=== PATIENT | male | born 1940 | race Two or more races ===

== ENCOUNTER 2017-03-14 00:05 | Inpatient (IN) | payer OTHER ==
--- NOTE | 2017-03-14 00:16 | PDOC ---
History of Present Illness - General Stated Complaint: TOE PAIN S/P APUTATION Time Seen by Provider: 03/14/17 00:15 - History of Present Illness Initial Comments: 03/14/17 00:16 77 yo M with h/o DVT, HTN, ESRD dialysis ( ,) , 3 months s/p Right AKA, s /p left 2nd digit amputation who presents with left second/third digit interspace pain. Grandchildren at bedside to assist in report as patient faroese speaking. Pt. reports new onset burning pain of left 2nd digit amputation site following 15 hour flight from [facility] ( resided for 10 years) in setting of amputation at [facility]. Patient reports increased swelling of left lower extremity. Denies paralysis of extremity, hemoptyisis, SOB, chest pain , fever/chills, N/V. States that there has been no f/u apt. after recent toe amputation. Per grandchildren patient is anticoagulated. Previous arterial study of left exetremity reveals permeable arterial flow throughout extending from femoral to posterior tibial pulse. Patient and pt. family do not recall h/o PE, or cancer. Last dialysis was Tuesday. Past History - Past Medical History Allergies/Adverse Reactions: Allergies Allergy/AdvReac Type Severity Reaction Status Date / Time No Known Allergies Allergy Verified 03/14/17 01:05 Home Medications: Ambulatory Orders Alprazolam [Xanax] 0.25 mg PO HS 03/14/17 Cilostazol [Pletal -] 100 mg PO BID 03/14/17 Esomeprazole Magnesium 40 mg PO DAILY 03/14/17 Fluticasone/Salmeterol [Advair 250-50 Diskus] 1 each IH BID 03/14/17 Glucosamine Sulfate Dipot Chlr [Glucosamine Sulfate] 1,000 mg PO DAILY 03/14/17 Meloxicam [Mobic] 15 mg PO DAILY 03/14/17 Rosuvastatin Calcium [Crestor] 20 mg PO DAILY 03/14/17 Sucralfate [Carafate] 5 ml PO BID 03/14/17 Tramadol HCl [Ultram] 50 mg PO Q4H PRN 03/14/17 Review of Systems - Review of Systems Comments:: 03/14/17 00:16 GENERAL/CONSTITUTIONAL: No fever or chills. No weakness. HEAD, EYES, EARS, NOSE AND THROAT: No change in vision. No ear pain or discharge. No sore throat.- CARDIOVASCULAR: No chest pain or shortness of breath RESPIRATORY: No cough, wheezing, or hemoptysis. GASTROINTESTINAL: No nausea, vomiting, diarrhea or constipation. GENITOURINARY: No dysuria, frequency, or change in urination. MUSCULOSKELETAL: + arthralgias, and left leg swelling, pain, and edema. No neck or back pain. SKIN: No rash NEUROLOGIC: No headache, vertigo, loss of consciousness, or change in strength/ sensation. ENDOCRINE: No increased thirst. No abnormal weight change HEMATOLOGIC/LYMPHATIC: No anemia, easy bleeding, or history of blood clots. ALLERGIC/IMMUNOLOGIC: No hives or skin allergy. *Physical Exam - Physical Exam Comments: 03/14/17 00:16 GENERAL: Awake, alert, and fully oriented, in no acute distress HEAD: No signs of trauma, normocephalic, atraumatic EYES: PERRLA, EOMI, sclera anicteric, conjunctiva clear ENT: Auricles normal inspection, hearing grossly normal, nares patent, oropharynx clear without exudates. Moist mucosa NECK: Normal ROM, supple, no lymphadenopathy, JVD, or masses LUNGS: No distress, speaks full sentences, clear to auscultation bilaterally HEART: Regular rate and rhythm, normal S1 and S2, no murmurs, rubs or gallops, peripheral pulses normal and equal bilaterally. EXTREMITIES :Left leg with 2 + pitting edema, chronic venous stasis dermatitis, 2x2 cm ulcer on left lateral malleolus, gangrenous color change of dorsal third digit, painful palpation of left lower extremity. Palpable popliteal and femoral pulses of left extremity. Amputation site between 2nd /3rd interspace appears yellow/with yellowish discharge and open with sutures remove. Wound site is mal odorous. Normal inspection, Normal range of motion, no edema. No clubbing or cyanosis. Cool to touch. SKIN: Warm, Dry, normal turgor, no rashes or lesions noted. ED Treatment Course - LABORATORY CBC & Chemistry Diagram: 03/14/17 01:15 03/14/17 01:15 Medical Decision Making - Medical Decision Making 03/14/17 01:44 77 yo M with h/o DVT, HTN, ESRD dialysis ( ,) , 3 months s/p Right AKA, s /p left 2nd digit amputation who presents with left second/third digit interspace pain and concern for lower leg ischemia. Endorses new onset burning pain of left 2nd digit amputation site following 15 hour flight from [facility] ( resided for 10 years) in setting of amputation at [facility]. Physical exam reveals cool left lower extremity with non palpable dorsal pedal pulses , 2x2 cm ulcer on left lateral malleolus, gangrenous color change of left dorsal third digit, painful palpation of left lower extremity and 2nd digit amputation with sign of infection between 2nd /3rd interspace w/ yellowish discharge and open wound with sutures removed. Palpable popliteal and femoral pulses of left extremity. Per grandchildren patient is anticoagulated. Previous arterial study of left exetremity reveals permeable arterial flow throughout extending from femoral to posterior tibial pulse. Last dialysis was Tuesday. ED Course: CBC, CMP, UA, Urine Cx, Blood Cx., Cardiac Profile, BNP, EKG, CXR, CTA with BL Runoff Morphine 4 mg, Zofran 4 mg, Vancomycin 1000mg, Unasyn 1.5mg Pt. high risk [place] Criteria Spoke to Dr. Villa vascular surgery. Advised to order CTA with BL LE Runoff. Advised to contact nephrology and arrange for dialysis post IV contrast. 03/14/17 01:48 Spoke to [facility] supervisor because nephrology not confectionery maker for scheduling dialysis for pt. 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 LLE extensive atherosclerosis. Per report from Raidiologist patient has severe occlusion of anterior tibial artery with no flow. Could represent acute or chronic occlusion. 03/14/17 05:04 Heparin infusion protocol 1000/hr. Heparin IV push 5000 mg. 03/14/17 05:48 Per PROFESSIONAL DEVELOPMENT MANAGER Karlene admit to Med/Surg Dr. Robbins *DC/Admit/Observation/Transfer Diagnosis at time of Disposition: Critical ischemia of lower extremity - Discharge Dispostion Condition at time of disposition: Stable Admit: Yes
[2017-03-14] MEDS ORDERED: AMPICILLIN NA/SULBACTAM NA 1.5 GM in SODIUM CHLORIDE 100 ML IVPB ONE (01:19)
[2017-03-14] MEDS ORDERED: ONDANSETRON 4 MG/2 ML VIAL IVPUSH ONE (01:28)
[2017-03-14] MEDS ORDERED: morphine CARPU-JECT 4 MG/1 ML DISP.SYRIN IVPUSH ONE (01:28)
[2017-03-14 01:29] LABS: BASOPHIL 0.8 % (0-2.0); EOSINOPHIL 1.3 % (0-4.5); MCH 28.1 pg (25.7-33.7); MCHC 32.6 g/dl (32.0-35.9); MEAN CELL VOLUME 86.2 fl (80-96); MEAN PLT VOLUME 7.6 fl (7.5-11.1); NEUTROPHILS 82.3 % (42.8-82.8); PLATELET COUNT 79 K/MM3 (134-434); RDW 16.4 % (11.9-15.9); WHITE BLOOD COUNT 5.7 K/mm3 (4.0-10.0)
[2017-03-14] MEDS ORDERED: VANCOMYCIN 1,000 MG in DEXTROSE 5%-WATER - 250 ML IVPB ONE (01:30)
[2017-03-14 01:57] LABS: ANION GAP 9 (8-16); BILIRUBIN,TOTAL 0.6 mg/dL (0.2-1.0); CALCIUM 7.7 mg/dL (8.5-10.1); CO2 24 mmol/L (21-32); GLUCOSE,RANDOM 109 mg/dL (74-106); SGPT/ALT 6 U/L (12-78)
[2017-03-14 01:58] LABS: ALK PHOS 100 U/L (45-117); TOT PROT 4.8 g/dl (6.4-8.2)
[2017-03-14 02:00] LABS: SGOT/AST 3 U/L (15-37)
[2017-03-14 02:01] VITALS: BMI 23.3
--- NOTE | 2017-03-14 02:01 | PDOC ---
Attending Attestation - Resident Resident Name: Anurag Levy - HPI HPI: 03/14/17 01:56 Pt comes with right AKA and a left middle toe amputation that was performed 3 weeks ago in [facility], where pt has been living for the past several years. 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 Pt currently has pseudomonal infection of the left foot with gangrene of 2nd toe and swelling of the entire lower leg, and a posterior tibial ulcer. Unclear if pt has an underlying DVT. He has palpable pulses at the femoral area as well as at the popleteal fossa. We cannot appreciate DP or PT pulses, however, pt comes with documentation from [facility] reflecting that he had patent DP and PT vessels in September of this year. Pt appears weak. He receives dialysis , , ; last dialysis was Tue. Pt has HTN. Pt appears septic, and will likely be admitted for parenteral ABX, as well as eval for DVT and for vessel patency in his lower leg. Pt will require dialysis as well. - Physicial Exam PE: 03/14/17 02:01 Agree with resident note - Medical Decision Making 03/14/17 02:02 Admit patient for antibiotics; vascular surgeon electrician front is aware of the patient and they will see him later today; pt will require inpateint dialysis. Pt will be admitted to the hospitalist service.
[2017-03-14 02:05] LABS: TROPONIN I 0.03 ng/ml (0.00-0.05)
[2017-03-14] MEDS ORDERED: morphine CARPU-JECT 8 MG/1 ML DISP.SYRIN ONE (02:20)
[2017-03-14] MEDS ORDERED: VANCOMYCIN 1 GRAM (PRE-DOCKED) 250 ML IVPB ONE (02:21)
[2017-03-14] MEDS ORDERED: ONDANSETRON 4 MG/2 ML VIAL ONE (02:21)
[2017-03-14 02:22] LABS: INR 1.26 (0.82-1.09); PROTHROMBIN TIME (PATIENT) 14.2 SEC (9.98-11.88)
[2017-03-14] MEDS ORDERED: SODIUM CHLORIDE 500 ML IV STA (02:39)
[2017-03-14] MEDS ORDERED: HEPARIN NA (PORCINE) 5,000 UNITS/ML 1ML VIAL IVPUSH PRN ×4 (04:51→11:04)
[2017-03-14] MEDS ORDERED: HEPARIN - 25,000 UNIT in SODIUM CHLORIDE 495 ML IV SCH ×2 (05:00→05:15)
[2017-03-14] MEDS ORDERED: HEPARIN INFUSION - 500 ML IVPB ONE (05:04)
[2017-03-14] MEDS ORDERED: HEPARIN NA (PORCINE) 5,000 UNITS/ML 1ML VIAL IVPUSH ONE (05:10)
--- NOTE | 2017-03-14 05:14 | HP ---
CHIEF COMPLAINT: L- Toe Pain PCP: Doctor on Staff HISTORY OF PRESENT ILLNESS: This is a 77 y/o man with a significant medical history ESRD HD (,,), HTN , DVT, 3 months s/p Right AKA, s/p left 2nd digit amputation lower extremity. Who presents to the ED with family for left second/third digit interspace pain x 6 weeks worse today. Patient is Nicaraguan speaking, family was not at bedside, ED staff member translated. Patient reports having increased swelling to his left lower extremity. Patient denies fever, chills, cough, hemopytsis, SOB, CP, AP, N/V/D, paralysis of lower extremity. Patient reports no f/u appointment, after recent toe amputation. Per ED record, grandchildren stated patient is anticoagulated. Previous arterial study of left extremity reveals permeable arterial flow throughout extending from femoral to posterior tibial pulse. Patient and pt. family do not recall h/o PE, or cancer. Last dialysis was Tuesday. 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 LLE extensive atherosclerosis. Severe occlusion of anterior tibial artery with no flow. Could represent acute or chronic occlusion. (2) H/H 7.7/23.7 (3) Platelets 79 Recent Travel: from [place] PAST MEDICAL HISTORY: See HPI PAST SURGICAL HISTORY: See HPI Social History: Smoking: Former Cigarette Alcohol: None Drugs: None Lives with family Family History: Non-Contributory Allergies No Known Allergies Allergy (Verified 03/14/17 01:05) HOME MEDICATIONS: Home Medications Medication Instructions Recorded Alprazolam [Xanax] 0.25 mg PO HS 03/14/17 Cilostazol [Pletal -] 100 mg PO BID 03/14/17 Esomeprazole Magnesium 40 mg PO DAILY 03/14/17 Fluticasone/Salmeterol [Advair 1 each IH BID 03/14/17 250-50 Diskus] Glucosamine Sulfate Dipot Chlr 1,000 mg PO DAILY 03/14/17 [Glucosamine Sulfate] Meloxicam [Mobic] 15 mg PO DAILY 03/14/17 Rosuvastatin Calcium [Crestor] 20 mg PO DAILY 03/14/17 Sucralfate [Carafate] 5 ml PO BID 03/14/17 Tramadol HCl [Ultram] 50 mg PO Q4H PRN 03/14/17 REVIEW OF SYSTEMS CONSTITUTIONAL: Absent: fever, chills, diaphoresis, generalized weakness, malaise, loss of appetite, weight change HEENT: Absent: rhinorrhea, nasal congestion, throat pain, throat swelling, difficulty swallowing, mouth swelling, ear pain, eye pain, visual changes CARDIOVASCULAR: peripheral edema Absent: chest pain, syncope, palpitations, irregular heart rate, lightheadedness RESPIRATORY: Absent: cough, shortness of breath, dyspnea with exertion, orthopnea, wheezing, stridor, hemoptysis GASTROINTESTINAL: Absent: abdominal pain, abdominal distension, nausea, vomiting, diarrhea, constipation, melena, hematochezia GENITOURINARY: Absent: dysuria, frequency, urgency, hesitancy, hematuria, flank pain, genital pain MUSCULOSKELETAL: joint swelling, foot pain Absent: myalgia, arthralgia, back pain, neck pain SKIN: wounds to left foot Absent: rash, itching, pallor HEMATOLOGIC/IMMUNOLOGIC: Absent: easy bleeding, easy bruising, lymphadenopathy, frequent infections ENDOCRINE: Absent: unexplained weight gain, unexplained weight loss, heat intolerance, cold intolerance NEUROLOGIC: Absent: headache, focal weakness or paresthesias, dizziness, unsteady gait, seizure, mental status changes, bladder or bowel incontinence PSYCHIATRIC: Absent: anxiety, depression, suicidal or homicidal ideation, hallucinations. PHYSICAL EXAMINATION Vital Signs - 24 hr 03/14/17 01:59 Temperature 99.2 F Pulse Rate 87 Respiratory 20 Rate Blood Pressure 111/76 GENERAL: Awake, alert, and fully oriented, in no acute distress. HEAD: Normal with no signs of trauma. EYES: Pupils equal, round and reactive to light, extraocular movements intact, sclera anicteric, conjunctiva clear. No lid lag. EARS, NOSE, THROAT: Ears normal, nares patent, oropharynx clear without exudates. Moist mucous membranes. NECK: Normal range of motion, supple without lymphadenopathy, JVD, or masses. LUNGS: Breath sounds equal, clear to auscultation bilaterally. No wheezes, and no crackles. No accessory muscle use. HEART: Regular rate and rhythm, normal S1 and S2, No rub or gallop. Systolic 2/ 6 murmur ABDOMEN: Soft, nontender, not distended, normoactive bowel sounds, no guarding, no rebound, no masses. No hepatomegaly or splenomegaly. MUSCULOSKELETAL: Normal range of motion at all joints. No bony deformities or tenderness. No CVA tenderness. UPPER EXTREMITIES: 2+ pulses, warm, well-perfused. No cyanosis. No clubbing. No peripheral edema. AV fistula RUE, thrill/bruit present. AV fistula LUE not working LOWER EXTREMITIES: Palpable popliteal and femoral pulses of left extremity, no palpable pulses to dorsal/achilles, +2 LLE pitting peripheral edema. Right AKA NEUROLOGICAL: Cranial nerves II-XII intact. Normal speech. Gait not observed. PSYCHIATRIC: Cooperative. Good eye contact. Appropriate mood and affect. SKIN: Warm, dry, normal turgor, no rashes. normal capillary refill. +Stage 2 ulcer to buttocks, 2x2 cm ulcer on left lateral malleolus, gangrenous color change of dorsal third digit. Amputation site between 2nd /3rd interspace appears yellow/with yellowish discharge and open with sutures remove. Wound site is malodorous Laboratory Results - last 24 hr 03/14/17 03/14/17 03/14/17 01:15 01:15 01:15 WBC 5.7 RBC 2.74 L Hgb 7.7 L Hct 23.7 L MCV 86.2 MCH 28.1 MCHC 32.6 RDW 16.4 H Plt Count 79 L MPV 7.6 Neutrophils % 82.3 Lymphocytes % 9.0 Monocytes % 6.6 Eosinophils % 1.3 Basophils % 0.8 PTT (Actin FS) 41.7 H Sodium 138 Potassium 3.6 Chloride 105 Carbon Dioxide 24 Anion Gap 9 BUN 37 H Creatinine 5.0 H Creat Clearance w eGFR 11.34 Random Glucose 109 H Lactic Acid Calcium 7.7 L Total Bilirubin 0.6 AST 3 L ALT 6 L Alkaline Phosphatase 100 Creatine Kinase Troponin I Total Protein 4.8 L Albumin 2.0 L Blood Type Antibody Screen 03/14/17 03/14/17 03/14/17 01:15 01:15 01:15 WBC RBC Hgb Hct MCV MCH MCHC RDW Plt Count MPV Neutrophils % Lymphocytes % Monocytes % Eosinophils % Basophils % PTT (Actin FS) Sodium Potassium Chloride Carbon Dioxide Anion Gap BUN Creatinine Creat Clearance w eGFR Random Glucose Lactic Acid 0.9 Calcium Total Bilirubin AST ALT Alkaline Phosphatase Creatine Kinase 17 L Troponin I 0.03 Total Protein Albumin Blood Type O POSITIVE Antibody Screen Negative Radiology Report: 03/14/17 04:36 CTA Report: 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 LLE extensive atherosclerosis. Per report from Radiologist patient has severe occlusion of anterior tibial artery with no flow. Could represent acute or chronic occlusion. ASSESSMENT/PLAN: This is a 77 y/o man with a PMHx of: ESRD, HTN, HLD, s/p amputation L- digit #2 LE. Admitted to m/s Limb Ischemia, Wounds to left foot for further evaluation of their emergent condition. Plan: 1. Left Lower Limb Ischemia - Acute vs Chronic - CTA with B/L LE- see above - Started on Heparin Drip with bolus in ED - Appreciate Vascular Consult- notified by ED resident - Monitor CBC, BMP - Monitor vitals 2. ESRD - HD- , - Appreciate Nephrology Consult for HD management 3. Wounds to Left Foot - s/p amputation digit #2 - On exam multiple wounds to L- malleolus, L- foot - No leukocytosis, LA- wnl - Vancomycin, Unasyn given in ED - Will continue both- renal dose - Appreciate ID consult - Monitor vitals - Monitor CBC 4. HTN - Monitor BP - Continue home meds 5. FEN - Fluid Restriction 1L - Replete lytes prn - Low Na, Renal Diet 6. DVT Prophylaxis - Continue Heparin Drip Code Status: Full Code Dispo: requires Inpatient Care Problem List - Problem (1) Critical lower limb ischemia Code(s): I99.8 - OTHER DISORDER OF CIRCULATORY SYSTEM (2) ESRD (end stage renal disease) Code(s): N18.6 - END STAGE RENAL DISEASE (3) HTN (hypertension) Code(s): I10 - ESSENTIAL (PRIMARY) HYPERTENSION (4) HLD (hyperlipidemia) Code(s): E78.5 - HYPERLIPIDEMIA, UNSPECIFIED (5) Open wnd foot-complicated Code(s): S91.309A - UNSPECIFIED OPEN WOUND, UNSPECIFIED FOOT, INITIAL ENCOUNTER (6) Anemia Code(s): D64.9 - ANEMIA, UNSPECIFIED Visit type - Emergency Visit Emergency Visit: Yes ED Registration Date: 03/14/17 Care time: The patient presented to the Emergency Department on the above date and was hospitalized for further evaluation of their emergent condition. - New Patient This patient is new to me today: Yes Date on this admission: 03/14/17 - Critical Care Critical Care patient: No
[2017-03-14 10:58] LABS: MAGNESIUM 1.8 mg/dL (1.8-2.4); PHOSPHOROUS 1.2 mg/dL (2.5-4.9)
--- NOTE | 2017-03-14 13:45 | CON.NEP ---
Consult Consult Specialty:: Nephrology Referred by:: Dr. Horn Reason for Consultation:: ESRD on HD - History of Present Illness Chief Complaint: Pain in left foot History of Present Illness: This is a 77 year old gentleman with PMhx of ESRD on HD (TTS), Hypertension, DVT , PVD s/p right AKA and left toe amputation who presented to the ED with complaints of pain in his left foot and admitted fro soft tissue infection of the foot with concern for worsening ischemic disease. - History Source History Provided By: Patient Limitations to Obtaining History: No Limitations - Smoking History Smoking history: Former smoker Have you smoked in the past 12 months: No Home Medications - Allergies Allergies/Adverse Reactions: Allergies Allergy/AdvReac Type Severity Reaction Status Date / Time No Known Allergies Allergy Verified 03/14/17 01:05 - Home Medications Home Medications: Ambulatory Orders Alprazolam [Xanax] 0.25 mg PO HS 03/14/17 Cilostazol [Pletal -] 100 mg PO BID 03/14/17 Esomeprazole Magnesium 40 mg PO DAILY 03/14/17 Fluticasone/Salmeterol [Advair 250-50 Diskus] 1 each IH BID 03/14/17 Glucosamine Sulfate Dipot Chlr [Glucosamine Sulfate] 1,000 mg PO DAILY 03/14/17 Meloxicam [Mobic] 15 mg PO DAILY 03/14/17 Rosuvastatin Calcium [Crestor] 20 mg PO DAILY 03/14/17 Sucralfate [Carafate] 5 ml PO BID 03/14/17 Tramadol HCl [Ultram] 50 mg PO Q4H PRN 03/14/17 Family Disease History - Family Disease History Family History: Unremarkable Review of Systems - Review of Systems Constitutional: reports: Fever. denies: Chills Eyes: reports: No Symptoms HENT: reports: No Symptoms Neck: reports: No Symptoms Cardiovascular: reports: No Symptoms Respiratory: reports: No Symptoms Gastrointestinal: denies: Abdominal Pain, Diarrhea, Vomiting Genitourinary: reports: No Symptoms Musculoskeletal: reports: No Symptoms Neurological: reports: No Symptoms Endocrine: reports: No Symptoms Hematology/Lymphatic: reports: No Symptoms Nephrology Consult - Height Height: 5 ft 6 in - Weight Weight: 145 lb - BMI Body Mass Index (BMI): 23.3 - Lab Results Anion Gap: Anion Gap Anion Gap 9 (8-16) 03/14/17 01:15 - Imaging Chest X-ray: Report Reviewed - Physical Examination Vital Signs: Vital Signs Temperature 98 F 03/14/17 10:00 Pulse Rate 70 03/14/17 10:00 Respiratory Rate 20 03/14/17 10:00 Blood Pressure 100/70 03/14/17 10:00 O2 Sat by Pulse Oximetry (%) 96 03/14/17 09:00 Constitutional: Yes: No Distress, Calm Eyes: Yes: Conjunctiva Clear HENT: Yes: Atraumatic Neck: Yes: Supple Cardiovascular: Yes: Regular Rate and Rhythm. No: JVD, Murmur, Rub Respiratory: Yes: Regular, CTA Bilaterally. No: Rales, Rhonchi, SOB Gastrointestinal: Yes: Normal Bowel Sounds, Soft, Abdomen, Obese. No: Tenderness Renal/: No: Anuria, Bladder Distention, CVA Tenderness - Left, CVA Tenderness - Right, Cma Present Extremities: Yes: Amputation (right AKA), Deformity (s/p 2nd digit toe amputation on left foot with open wound w/o discharge) Edema: No Wound/Incision: Yes: Open to air. No: Draining, Reddened, Bleeding Neurological: Yes: Alert, Oriented Problem List - Problems (1) Anemia Code(s): D64.9 - ANEMIA, UNSPECIFIED (2) Critical lower limb ischemia Code(s): I99.8 - OTHER DISORDER OF CIRCULATORY SYSTEM (3) ESRD (end stage renal disease) Code(s): N18.6 - END STAGE RENAL DISEASE (4) HTN (hypertension) Code(s): I10 - ESSENTIAL (PRIMARY) HYPERTENSION (5) Open wnd foot-complicated Code(s): S91.309A - UNSPECIFIED OPEN WOUND, UNSPECIFIED FOOT, INITIAL ENCOUNTER Assessment/Plan 77 year old gentleman with PMhx of ESRD on HD (TTS), Hypertension, DVT, PVD s/p right AKA and left toe amputation who presented to the ED with complaints of pain in his left foot and admitted fro soft tissue infection of the foot with concern for worsening ischemic disease. #ESRD on HD (TTS) Last dialysis as outpatient was Tuesday No acute indication for RISK PROFESSIONAL today, next treatment is planned for Tuesday Renal diet Fluid restriction of 1.2L daily dose all meds for intermittent HD will check Vanco levels with dialysis #Wound/Ischemia of left LE for Doppler US today of the foot Abx as needed Will redose Vanco by levels with HD Vascular Sx follow up pain control #Acute on Chronic Anemia likely due to infection but need to r/o blood loss will continue IVANIA with HD if Hgb less then 8 at start of dialysis tomorrow will plan 1 unit prbc transfusion check iron studies and stool occult blood
[2017-03-14] MEDS ORDERED: PIPERACILLIN/TAZOB 2.25 GM/50 ML PREMIX BAG IVPB ONE (14:00)
[2017-03-14] MEDS: BUDESONIDE/FORMETEROL FUMARATE 80/4.5 mcg INHALER IH SCH ×2 (14:00→21:09)
--- NOTE | 2017-03-14 14:15 | HOSP ---
Physical Examination Vital Signs: Vital Signs Temperature 98 F 03/14/17 10:00 Pulse Rate 70 03/14/17 10:00 Respiratory Rate 20 03/14/17 10:00 Blood Pressure 100/70 03/14/17 10:00 O2 Sat by Pulse Oximetry (%) 96 03/14/17 09:00 Hospitalist Encounter Assessment: Cardiac consult needed for pre-op clearance CTA with runoff pending Seen by ID, Renal and Vascular Zosyn ordered x 1 , pt received Vanco x 1 today Unable to tolerate venous u/s, arterial ultrasound pending LLE Morphine for pain ordered Patient is s/p CTA with runoff
[2017-03-14] MEDS: morphine CARPU-JECT 8 MG/1 ML DISP.SYRIN IVPUSH PRN ×2 (14:30→20:29)
[2017-03-14] MEDS: HEPARIN NA (PORCINE) 5,000 UNITS/ML 1ML VIAL SQ SCH ×2 (14:31→21:09)
--- NOTE | 2017-03-14 14:44 | EKG ---
Test Reason : Blood Pressure : / mmHG Vent. Rate : 087 BPM Atrial Rate : 096 BPM P-R Int : 000 ms QRS Dur : 104 ms QT Int : 386 ms P-R-T Axes : 000 -04 248 degrees QTc Int : 464 ms ATRIAL FIBRILLATION WITH PREMATURE VENTRICULAR OR ABERRANTLY CONDUCTED COMPLEXES INFERIOR INFARCT , AGE UNDETERMINED ABNORMAL ECG WHEN COMPARED WITH ECG OF 23-NOV-2002 19:45, ATRIAL FIBRILLATION HAS REPLACED SINUS RHYTHM Confirmed by ALEXANDREA PINA, LARISSA ([id number]) on 03/14/2017 2:43:57 PM Referred By: Confirmed By:LARISSA LECHUGA MD
[2017-03-14] MEDS ORDERED: PT OWN MED DRAWER 7, Y5N ONE ×2 (17:19→21:04)
[2017-03-14 17:20] LABS: BASOPHIL 0.2 % (0-2.0); EOSINOPHIL 1.2 % (0-4.5); MCH 28.1 pg (25.7-33.7); MCHC 32.9 g/dl (32.0-35.9); MEAN CELL VOLUME 85.3 fl (80-96); MEAN PLT VOLUME 8.1 fl (7.5-11.1); NEUTROPHILS 81.8 % (42.8-82.8); RDW 16.4 % (11.9-15.9); WHITE BLOOD COUNT 7.9 K/mm3 (4.0-10.0)
--- NOTE | 2017-03-14 18:05 | CONSULT ---
Consult - Alcohol/Substance Use Hx Alcohol Use: No - Smoking History Smoking history: Former smoker Have you smoked in the past 12 months: No Home Medications - Allergies Allergies/Adverse Reactions: Allergies Allergy/AdvReac Type Severity Reaction Status Date / Time No Known Allergies Allergy Verified 03/14/17 01:05 - Home Medications Home Medications: Ambulatory Orders Alprazolam [Xanax] 0.25 mg PO HS 03/14/17 Cilostazol [Pletal -] 100 mg PO BID 03/14/17 Esomeprazole Magnesium 40 mg PO DAILY 03/14/17 Fluticasone/Salmeterol [Advair 250-50 Diskus] 1 each IH BID 03/14/17 Glucosamine Sulfate Dipot Chlr [Glucosamine Sulfate] 1,000 mg PO DAILY 03/14/17 Meloxicam [Mobic] 15 mg PO DAILY 03/14/17 Rosuvastatin Calcium [Crestor] 20 mg PO DAILY 03/14/17 Sucralfate [Carafate] 5 ml PO BID 03/14/17 Tramadol HCl [Ultram] 50 mg PO Q4H PRN 03/14/17 Physical Exam Vital Signs: Vital Signs Temperature 98.0 F 03/14/17 13:59 Pulse Rate 87 03/14/17 13:59 Respiratory Rate 20 03/14/17 13:59 Blood Pressure 110/57 03/14/17 13:59 O2 Sat by Pulse Oximetry (%) 96 03/14/17 09:00 Labs: CBC, BMP 03/14/17 16:16 Assessment/Plan Vascular Surgery 77 yo M with h/o DVT, HTN, ESRD dialysis ( ) , 3 months s/p Right AKA, s /p left 2nd digit amputation who presents with left second/third digit interspace pain. Grandchildren at bedside to assist in report as patient irish speaking. Pt. reports new onset burning pain of left 2nd digit amputation site following 15 hour flight from [facility] ( resided for 10 years) in setting of amputation at [facility]. Patient reports increased swelling of left lower extremity. Denies paralysis of extremity, hemoptyisis, SOB, chest pain , fever/chills, N/V. States that there has been no f/u apt. after recent toe amputation. Per grandchildren patient is anticoagulated. Previous arterial study of left exetremity reveals permeable arterial flow throughout extending from femoral to posterior tibial pulse. Patient and pt. family do not recall h/o PE, or cancer. Last dialysis was Tuesday. Past History - Past Medical History Allergies/Adverse Reactions: Allergies Allergy/AdvReac Type Severity Reaction Status Date / Time No Known Allergies Allergy Verified 03/14/17 01:05 Home Medications: Ambulatory Orders Alprazolam [Xanax] 0.25 mg PO HS 03/14/17 Cilostazol [Pletal -] 100 mg PO BID 03/14/17 Esomeprazole Magnesium 40 mg PO DAILY 03/14/17 Fluticasone/Salmeterol [Advair 250-50 Diskus] 1 each IH BID 03/14/17 Glucosamine Sulfate Dipot Chlr [Glucosamine Sulfate] 1,000 mg PO DAILY 03/14/17 Meloxicam [Mobic] 15 mg PO DAILY 03/14/17 Rosuvastatin Calcium [Crestor] 20 mg PO DAILY 03/14/17 Sucralfate [Carafate] 5 ml PO BID 03/14/17 Tramadol HCl [Ultram] 50 mg PO Q4H PRN 03/14/17 PE Head - NC/AT Lung - CTA Heart - RRR abd -soft,nt,nd ext - Left leg - 2nd toe amp wound. Leg with swelling. No palable pulses. Amp done 3 weeks ago. Right bka done 3 months ago. A/P Left SFA occlusion. Will need angiogram on tue. HD as per renal daniel. Cardiology clearance. Faizan Villa DO
[2017-03-14 18:06] LABS: PLATELET COUNT 81 K/MM3 (134-434)
[2017-03-14 18:07] LABS: PLATELET ESTIMATE DECREASED (NORMAL)
--- NOTE | 2017-03-14 18:11 | CON.ID ---
Consult Consult Specialty:: infectious diseases Reason for Consultation:: r/o osteo,wound infection - History of Present Illness History of Present Illness: 77 y/o man with a significant medical history ESRD HD (,,), HTN, DVT, 3 months s/p Right AKA, s/p left 2nd digit amputation lower extremity. admitted for left second/third digit interspace pain x 6 weeks worse today. Patient is Maori speaking, family giving the history, Patient reports having increased swelling to his left lower extremity. Patient denies fever, chills, Per ED record, grandchildren stated patient is anticoagulated. Previous arterial study of left extremity reveals permeable arterial flow throughout extending from femoral to posterior tibial pulse. also according to the family the wound is open and still the stiches from the amputation are present d/w with vascular team who are here and plan is to do angio graphy and if needed angiop plasty after probably after mra of the ext - History Source History Provided By: Family Member Limitations to Obtaining History: Language Barrier - Alcohol/Substance Use Hx Alcohol Use: No - Smoking History Smoking history: Former smoker Have you smoked in the past 12 months: No Home Medications - Allergies Allergies/Adverse Reactions: Allergies Allergy/AdvReac Type Severity Reaction Status Date / Time No Known Allergies Allergy Verified 03/14/17 01:05 - Home Medications Home Medications: Ambulatory Orders Alprazolam [Xanax] 0.25 mg PO HS 03/14/17 Cilostazol [Pletal -] 100 mg PO BID 03/14/17 Fluticasone/Salmeterol [Advair 250-50 Diskus] 1 each IH BID 03/14/17 Glucosamine Sulfate Dipot Chlr [Glucosamine Sulfate] 1,000 mg PO DAILY 03/14/17 Meloxicam [Mobic] 15 mg PO DAILY 03/14/17 RX: Esomeprazole Magnesium 40 mg PO DAILY 03/14/17 Rosuvastatin Calcium [Crestor] 20 mg PO DAILY 03/14/17 Sucralfate [Carafate] 5 ml PO BID 03/14/17 Tramadol HCl [Ultram] 50 mg PO Q4H PRN 03/14/17 Review of Systems Unable to obtain ROS, reason: unable to obtain Physical Exam Vital Signs: Vital Signs Temperature 98.0 F 03/14/17 13:59 Pulse Rate 87 03/14/17 13:59 Respiratory Rate 20 03/14/17 13:59 Blood Pressure 110/57 03/14/17 13:59 O2 Sat by Pulse Oximetry (%) 96 03/14/17 09:00 Constitutional: Yes: Calm, Mild Distress Eyes: Yes: Conjunctiva Clear Neck: Yes: Supple, Trachea Midline Cardiovascular: Yes: Regular Rate and Rhythm Respiratory: Yes: Regular, CTA Bilaterally Gastrointestinal: Yes: Normal Bowel Sounds, Soft Musculoskeletal: Yes: Muscle Pain, Muscle Weakness, Other Extremities: Yes: Other (Amputation (right AKA), Deformity (s/p 2nd digit toe amputation on left foot with open wound w/o discharge)) Peripheral Pulses WNL: No (no palpable pulses) Integumentary: Yes: Other Wound/Incision: Yes: Open to air, Dressing Removed, Draining Neurological: Yes: Alert Psychiatric: Yes: Alert Labs: CBC, BMP 03/14/17 16:16 Imaging - Results Chest X-ray: Report Reviewed, Image Reviewed Assessment/Plan Problem List - Problems (1) Anemia Code(s): D64.9 - ANEMIA, UNSPECIFIED (2) Critical lower limb ischemia Code(s): I99.8 - OTHER DISORDER OF CIRCULATORY SYSTEM (3) ESRD (end stage renal disease) Code(s): N18.6 - END STAGE RENAL DISEASE (4) HTN (hypertension) Code(s): I10 - ESSENTIAL (PRIMARY) HYPERTENSION (5) Open wnd foot-complicated Code(s): S91.309A - UNSPECIFIED OPEN WOUND, UNSPECIFIED FOOT, INITIAL ENCOUNTER plan will start on abx cx send await for cx present patient as per vascular rest as per primary team
[2017-03-14] MEDS: SUCRALFATE 1 GM/10 ML UNIT DOSE CUPS PO SCH (21:09)
[2017-03-14] MEDS: ALPRAZolam 0.25 MG TABLET PO SCH (21:09)
[2017-03-14 21:43] LABS: EOSINOPHIL 1.2 % (0-4.5); MCH 28.4 pg (25.7-33.7); MCHC 33.1 g/dl (32.0-35.9); MEAN CELL VOLUME 85.7 fl (80-96); MEAN PLT VOLUME 8.2 fl (7.5-11.1); NEUTROPHILS 80.3 % (42.8-82.8); RDW 16.7 % (11.9-15.9); WHITE BLOOD COUNT 8.1 K/mm3 (4.0-10.0)
[2017-03-14 22:16] LABS: PLATELET COUNT 81 K/MM3 (134-434); PLATELET ESTIMATE DECREASED (NORMAL)
[2017-03-15] MEDS: morphine CARPU-JECT 8 MG/1 ML DISP.SYRIN IVPUSH PRN ×4 (00:44→20:35)
[2017-03-15] MEDS: HEPARIN NA (PORCINE) 5,000 UNITS/ML 1ML VIAL SQ SCH (06:27)
[2017-03-15] MEDS ORDERED: HEPARIN NA (PORCINE) 5,000 UNITS/ML 1ML VIAL IVPUSH PRN ×2 (08:00)
[2017-03-15] MEDS ORDERED: HEPARIN - 25,000 UNIT in SODIUM CHLORIDE 495 ML IV SCH (08:00)
[2017-03-15] MEDS ORDERED: GLUCOSAMINE SULFATE DIPOT CHLR PO SCH ×2 (10:00)
[2017-03-15] MEDS: SUCRALFATE 1 GM/10 ML UNIT DOSE CUPS PO SCH ×2 (10:34→22:22)
--- NOTE | 2017-03-15 11:10 | PN ---
Physical Exam: SUBJECTIVE: Patient seen and examined at the bedside. Verbalizes pain with position changes. OBJECTIVE: On Heparin drip for afib, for left lower ext angiogram, angioplasty tomorrow Heparin to stop at 10.am. tomorrow morning as per surgical note. Vital Signs Period Temp Pulse Resp BP Sys/Coleman Pulse Ox Last 24 Hr 98.0 F-98.5 F 72-87 18-20 94-110/53-61 98-98 GENERAL: Awake, alert, and fully oriented, in no acute distress. HEAD: Normal with no signs of trauma. EYES: Pupils equal, round and reactive to light, extraocular movements intact, sclera anicteric, conjunctiva clear. No lid lag. EARS, NOSE, THROAT: Ears normal, nares patent, oropharynx clear without exudates. Moist mucous membranes. NECK: Normal range of motion, supple without lymphadenopathy, JVD, or masses. LUNGS: Breath sounds diminished bilaterall, no wheezing HEART: irregular heart rate, hx of afib ABDOMEN: Soft, nontender, not distended, normoactive bowel sounds, no guarding, no rebound, no masses. No hepatomegaly or splenomegaly. UPPER EXTREMITIES: AV fistula RUE, thrill/bruit present. AV fistula LUE not working LOWER EXTREMITIES: + 3 lower ext pitting peripheral edema. Right AKA NEUROLOGICAL: Normal speech. Gait not observed. PSYCHIATRIC: Cooperative. Good eye contact. Appropriate mood and affect. SKIN: Warm, dry, normal turgor, no rashes. normal capillary refill. Patient presented with multiple wounds: (1) Stage II ulcer to buttocks, 2x2 cm circular ulcer on left lateral malleolus (2) gangrenous/necrotic dorsal third digit. (3) Amputation site between 2nd and 3rd space appears yellow, with slough, open wound. Wound site is malodorous, dressing stained and intact Laboratory Results - last 24 hr 03/14/17 03/14/17 16:16 21:15 WBC 7.9 D 8.1 RBC 2.97 L 2.97 L Hgb 8.3 L 8.4 L Hct 25.3 L 25.4 L MCV 85.3 85.7 MCH 28.1 28.4 MCHC 32.9 33.1 RDW 16.4 H 16.7 H Plt Count 81 L 81 L MPV 8.1 8.2 Neutrophils % 81.8 80.3 Lymphocytes % 7.9 L 6.9 L Monocytes % 8.9 8.6 Eosinophils % 1.2 1.2 Basophils % 0.2 3.0 H D Platelet Estimate Decreased Decreased RBC Morphology See commen Active Medications Generic Name Dose Route Start Last Admin Trade Name Freq PRN Reason Stop Dose Admin Alprazolam 0.25 mg 03/14/17 22:00 03/14/17 21:09 Xanax - PO 0.25 mg HS OTIS Administration Aspirin 81 mg 03/15/17 10:00 Asa - PO DAILY OTIS Budesonide/Formoterol Fumarate 2 puff 03/14/17 11:15 03/14/17 21:09 Symbicort 80/4.5mcg - IH 2 puff BID OTIS Administration Cilostazol 100 mg 03/15/17 10:00 Pletal - PO BID OTIS Heparin Sodium (Porcine) 1,000 unit 03/15/17 08:00 Heparin - IVPUSH PRN PRN Heparin Heparin Sodium (Porcine) 5,000 unit 03/15/17 08:00 Heparin - IVPUSH PRN PRN Heparin Heparin Sodium/Dextrose 500 mls @ 16 mls/hr 03/15/17 11:00 Heparin Infusion - IVPB TITR [facility] Protocol 800 UNITS/HR Morphine Sulfate 2 mg 03/14/17 13:27 03/15/17 06:28 Morphine Sulfate IVPUSH 2 mg Q4H PRN Administration PAIN Rosuvastatin Calcium 10 mg 03/15/17 22:00 Crestor - PO HS OTIS Sucralfate 0.5 gm 03/14/17 22:00 03/15/17 10:34 Carafate Oral Suspension - PO 0.5 gm BID OTIS Administration ASSESSMENT/PLAN: Patient is a 77 year old male with a significant past medical history of ESRD HD (T,Th,), atrial fib, hypertension, DVT, right AKA, s/p left 2nd digit amputation lower extremity. He presented to the ED on 03/14/2017 for critical ischemia of left lower extremity. Patient is Malay speaking only and family reports having increased swelling to his left lower extremity. Pt comes with right AKA and a left middle toe amputation that was performed 3 weeks ago in [facility], where pt has been living for the past several years. Currently patient appears to have an infection of the left foot with gangrene of 2nd toe and +3 edema of the entire lower leg, and a lateral small circular ulceration. Pt comes with documentation from [facility] reflecting that he had patent DP and PT vessels in September of this year. Previous arterial study of left extremity reveals permeable arterial flow throughout extending from femoral to posterior tibial pulse. Last dialysis was Tuesday in [facility]. Imagin03/14/2017: CT/Abdomen CTA AOR & RLE Runoff: Extensive severe diffuse aortoiliac , femoro-popliteal and intrapoplitea, occluded left SFA and mucus occlusion of flow in a severely diseased the renal artery demonstrates at lease 70-90% stenosis. Occluded left ENMANUEL and two vessel runoff provided by [employer] and PA however degree of disease and stenosis cannot be discerned due to calcification and hardening artifacts. enlarged prostate. Small right sided pleural effusion with severe right lung base atelectic changes vs pnemonic infiltrates. 03/14/2017: US/Duplex arterial legs, limited ultrasound: Extensive artheroscleoric disease with occlusion of the SFA. There is weak, monosphasic flow present within the popliteal and posterior tibial arteries. Vascular/ID: Wound with Ischemic Left foot, acute Amputation site between 2nd and 3rd space appears yellow, with slough, open wound. Wound site is malodorous, dressing stained and intact Doppler vascular ultrasound today, unable to tolerate study yesterday due to pain, ultrasound arterial duplex shoes extensive artheroscleroic disease with occlusion of the SFA On Vanco and Zosyn as per ID, renally dosed (received doses on 03/14/2017) For angiogram and angioplasty tomorrow, stop Heparin at 10.am., NPO at midnight AAA found on CT scan, will need outpatient monitoring Renal: ESRD, dialysis today via RUE on HD (on TThS) Will need new facility for outpatient HD set up, last dialysis was on Tuesday in [facility] On Renvela, Renal Diet Cardiology: Atrial Fibrillation, chronic On Heparin drip, transition to Warfarin once invasive procedures are complete Not on any cardiac medications at this time, will monitor BP for now Echo ordered Cleared by cardiology for vascular workup Hematology: Anemia, likely chronic Continue to monitor, tranfuse if hmg <8 CBC in a.m. F.E.N. Fluids: 1.2 liter fluid restriction, tolerating PO Electrolytes: monitor Nutrition: renal diet Prophylaxis: GI: deferred DVT: on Heparin drip Disposition: Requires inpatient hospitalization. Full code.
[2017-03-15] MEDS: HEPARIN INFUSION - 500 ML IVPB SCH (11:14)
[2017-03-15 11:31] LABS: ALBUMIN 2.3 g/dl (3.4-5.0); ALK PHOS 124 U/L (45-117); ANION GAP 13 (8-16); BILIRUBIN,TOTAL 0.5 mg/dL (0.2-1.0); CALCIUM 8.3 mg/dL (8.5-10.1); CO2 24 mmol/L (21-32); CREATININE 6.8 mg/dL (0.7-1.3); GLUCOSE,RANDOM 78 mg/dL (74-106); SGOT/AST 6 U/L (15-37); SGPT/ALT 9 U/L (12-78); TOT PROT 5.5 g/dl (6.4-8.2)
--- NOTE | 2017-03-15 12:02 | CON.CARD ---
Consult Consult Specialty:: Cardiology Referred by:: Hospitalist Reason for Consultation:: Cardiac evaluation and for cardiac clearance - History of Present Illness History of Present Illness: Patient is a 77 year old male of descent (hails from [place]) with underlying history of ESRD on HD (, , Tue), HTN, DVT, PVD with right AKA and left lower extremity 2nd digit amputation who presents with left lower extremity pain and swelling. He denies chest pain, shortness of breath or palpitations. He denies paroxysmal nocturnal dyspnea or orthopnea. He denies fever or chills. He denies cough or expectorations. He denies headache or lightheadedness. He has persistent atrial fibrillation and medical record indicates that he was on anticoagulation therapy,l however; her INR is within normal range suggesting that she has not been on anticoagulation. She was seen by Vascular surgery (Dr. Gustavo Villa) who plans lower extremity angiography. - History Source History Provided By: Patient, Medical Record Limitations to Obtaining History: Language Barrier - Past Medical History Cardio/Vascular: Yes: Deep Vein Thrombosis, HTN, Other (PVD) Renal/: Yes: Renal Failure, Hemodialysis - Past Surgical History Past Surgical History: Yes: Amputation - Alcohol/Substance Use Hx Alcohol Use: No - Smoking History Smoking history: Former smoker Have you smoked in the past 12 months: No Home Medications - Allergies Allergies/Adverse Reactions: Allergies Allergy/AdvReac Type Severity Reaction Status Date / Time No Known Allergies Allergy Verified 03/14/17 01:05 - Home Medications Home Medications: Ambulatory Orders Alprazolam [Xanax] 0.25 mg PO HS 03/14/17 Cilostazol [Pletal -] 100 mg PO BID 03/14/17 Esomeprazole Magnesium 40 mg PO DAILY 03/14/17 Fluticasone/Salmeterol [Advair 250-50 Diskus] 1 each IH BID 03/14/17 Glucosamine Sulfate Dipot Chlr [Glucosamine Sulfate] 1,000 mg PO DAILY 03/14/17 Meloxicam [Mobic] 15 mg PO DAILY 03/14/17 Rosuvastatin Calcium [Crestor] 20 mg PO DAILY 03/14/17 Sucralfate [Carafate] 5 ml PO BID 03/14/17 Tramadol HCl [Ultram] 50 mg PO Q4H PRN 03/14/17 Review of Systems - Review of Systems Constitutional: denies: Chills, Fever Cardiovascular: denies: Chest Pain, Palpitations, Shortness of Breath Respiratory: denies: Cough, Hemoptysis, Orthopnea, PND, SOB, SOB on Exertion Gastrointestinal: denies: Abdominal Pain, Constipation, Diarrhea, Melena, Nausea , Rectal Bleeding, Vomiting Musculoskeletal: reports: Extremity Pain, Joint Pain Neurological: denies: Dizziness, Headache, Seizure, Syncope Vital Signs: Vital Signs Temperature 98.0 F 03/15/17 06:00 Pulse Rate 77 03/15/17 06:00 Respiratory Rate 18 03/15/17 06:00 Blood Pressure 100/57 03/15/17 06:00 O2 Sat by Pulse Oximetry (%) 98 03/14/17 21:00 Neck: Yes: Supple Respiratory: Yes: Diminished Gastrointestinal: Yes: Normal Bowel Sounds, Soft. No: Tenderness Cardiovascular: Yes: Pulse Irregular JVD: No Carotid Bruit: No PMI: Non-Displaced Heart Sounds: Yes: S1, S2. No: Gallop Murmur: Yes: Systolic Murmur, Grade 1 Extremities: Yes: Amputation (Right AKA, left toe amputation, left foot dressing applied), Erythema - Other Data Labs, Other Data: CBC, BMP 03/14/17 21:15 03/15/17 10:00 INR, PTT INR 1.26 (0.82-1.09) H 03/14/17 01:15 Laboratory Results - last 24 hr 03/14/17 03/14/17 03/15/17 16:16 21:15 10:00 WBC 7.9 D 8.1 RBC 2.97 L 2.97 L Hgb 8.3 L 8.4 L Hct 25.3 L 25.4 L MCV 85.3 85.7 MCH 28.1 28.4 MCHC 32.9 33.1 RDW 16.4 H 16.7 H Plt Count 81 L 81 L MPV 8.1 8.2 Neutrophils % 81.8 80.3 Lymphocytes % 7.9 L 6.9 L Monocytes % 8.9 8.6 Eosinophils % 1.2 1.2 Basophils % 0.2 3.0 H D Platelet Estimate Decreased Decreased RBC Morphology See commen Sodium 138 Potassium 4.3 Chloride 101 Carbon Dioxide 24 Anion Gap 13 BUN 53 H D Creatinine 6.8 H D Creat Clearance w eGFR 7.95 Random Glucose 78 D Calcium 8.3 L Total Bilirubin 0.5 AST 6 L D ALT 9 L D Alkaline Phosphatase 124 H D Total Protein 5.5 L Albumin 2.3 L Atrial fibrillation Imaging - Results Chest X-ray: Report Reviewed Ultrasound: Report Reviewed (Occluded left SFA) EKG: Report Reviewed Other: Report Reviewed (CTA - occluded left SFA, renal artery stenosis, AAA) Problem List - Problems (1) Anemia Code(s): D64.9 - ANEMIA, UNSPECIFIED (2) Critical lower limb ischemia Code(s): I99.8 - OTHER DISORDER OF CIRCULATORY SYSTEM (3) ESRD (end stage renal disease) Code(s): N18.6 - END STAGE RENAL DISEASE (4) HLD (hyperlipidemia) Code(s): E78.5 - HYPERLIPIDEMIA, UNSPECIFIED Qualifiers: Hyperlipidemia type: pure hypercholesterolemia Qualified Code(s): E78.00 - Pure hypercholesterolemia, unspecified; E78.00 - Pure hypercholesterolemia, unspecified; E78.00 - Pure hypercholesterolemia, unspecified; E78.0 - Pure hypercholesterolemia (5) HTN (hypertension) Code(s): I10 - ESSENTIAL (PRIMARY) HYPERTENSION Qualifiers: Hypertension type: essential hypertension Qualified Code(s): I10 - Essential (primary) hypertension; I10 - Essential (primary) hypertension; I10 - Essential (primary) hypertension (6) S/P AKA (above knee amputation) Code(s): Z89.619 - ACQUIRED ABSENCE OF UNSPECIFIED LEG ABOVE KNEE Qualifiers: Laterality: right Qualified Code(s): Z89.611 - Acquired absence of right leg above knee; Z89.611 - Acquired absence of right leg above knee; Z89.611 - Acquired absence of right leg above knee (7) Amputated toe of left foot Code(s): Z89.422 - ACQUIRED ABSENCE OF OTHER LEFT TOE(S) (8) Atrial fibrillation Code(s): I48.91 - UNSPECIFIED ATRIAL FIBRILLATION Qualifiers: Atrial fibrillation type: persistent Qualified Code(s): I48.1 - Persistent atrial fibrillation; I48.1 - Persistent atrial fibrillation; I48.1 - Persistent atrial fibrillation; I48.1 - Persistent atrial fibrillation Assessment/Plan 1. PAD S/P right AKA and left toe amputation, occluded left SFA and AAA (4.6 cm) 2. Renal artery disease with ESRD on HD 3. HTN/HCVD 4. Persistent AF ([id number] score of 4) 5. History of DVT PLAN: 1. Transthoracic echocardiography to assess LV/RV and valvular function 2. No absolute contraindication in proceeding with vascular work up in view of absence of ischemic symptoms, decompensated congestive heart failure or malignant arrhythmias. 3. Continue with HD 4. Continue Heparin protocol. Eventually he will need to be on Warfarin therapy if not contraindicated and keep INR btw 2-3 5. Currently not on any cardiac medications, but may consider low dose beta audrey 6. Continue statin therapy and check lipid panel 7. Vascular surgery input noted 8. AAA also needs to be followed as outpatient Further plans are to follow Elias Landrum MD
[2017-03-15] MEDS ORDERED: EPOETIN ALFA 10,000 UNIT/1 ML VIAL IVPUSH ONE (12:30)
[2017-03-15] MEDS: diphenhydrAMINE HCL 25 MG CAPSULE (FP) PO PRN (13:04)
--- NOTE | 2017-03-15 14:41 | PN ---
Progress Note (short form) - Note Progress Note: Vascular Surgery Pt seen and examined in HD Spoke to cardiology -- ok to proceed for angiogram. Will do LLE angiogram, angioplasty daniel. NPO past midnight. CAn stop IV heparin at 10am. Faizan Villa DO
[2017-03-15] MEDS: ASPIRIN 81 MG CHEWABLE TABLETS PO SCH (14:51)
[2017-03-15] MEDS: CILOSTAZOL 100 MG TABLET PO SCH ×2 (14:51→22:22)
[2017-03-15] MEDS: BUDESONIDE/FORMETEROL FUMARATE 80/4.5 mcg INHALER IH SCH ×2 (14:51→22:22)
--- NOTE | 2017-03-15 14:51 | PN ---
Progress Note, Physician History of Present Illness: little anxious being dialysed otherwise no issues surgery plan for tomorrow - Current Medication List Current Medications: Active Medications Alprazolam (Xanax -) 0.25 mg PO HS [facility] Last Admin: 03/14/17 21:09 Dose: 0.25 mg Aspirin (Asa -) 81 mg PO DAILY [facility] Budesonide/Formoterol Fumarate (Symbicort 80/4.5mcg -) 2 puff IH BID [facility] Last Admin: 03/14/17 21:09 Dose: 2 puff Cilostazol (Pletal -) 100 mg PO BID OTIS Diphenhydramine HCl (Benadryl -) 25 mg PO Q6H PRN PRN Reason: FOR ITCHING Last Admin: 03/15/17 13:04 Dose: 25 mg Heparin Sodium (Porcine) (Heparin -) 1,000 unit IVPUSH PRN PRN PRN Reason: Heparin Heparin Sodium (Porcine) (Heparin -) 5,000 unit IVPUSH PRN PRN PRN Reason: Heparin Heparin Sodium/Dextrose (Heparin Infusion -) 500 mls @ 16 mls/hr IVPB TITR OTIS ; 800 UNITS/HR PRN Reason: Protocol Last Admin: 03/15/17 11:14 Dose: 16 mls/hr Morphine Sulfate (Morphine Sulfate) 2 mg IVPUSH Q4H PRN PRN Reason: PAIN Last Admin: 03/15/17 06:28 Dose: 2 mg Rosuvastatin Calcium (Crestor -) 10 mg PO HS [facility] Sucralfate (Carafate Oral Suspension -) 0.5 gm PO BID [facility] Last Admin: 03/15/17 10:34 Dose: 0.5 gm - Objective Vital Signs: Vital Signs Temperature 98 F 03/15/17 14:18 Pulse Rate 80 03/15/17 14:18 Respiratory Rate 18 03/15/17 14:18 Blood Pressure 103/55 03/15/17 14:18 O2 Sat by Pulse Oximetry (%) 98 03/14/17 21:00 Constitutional: Yes: Calm, Mild Distress Cardiovascular: Yes: Regular Rate and Rhythm Respiratory: Yes: Regular, CTA Bilaterally Gastrointestinal: Yes: Normal Bowel Sounds, Soft Musculoskeletal: Yes: Other Extremities: Yes: Other (open wound infection no pulses) Wound/Incision: Yes: Draining, Other Neurological: Yes: Alert, Other Psychiatric: Yes: Other Labs: CBC, BMP 10/30/17 21:15 03/15/17 10:00 INR, PTT INR 1.26 (0.82-1.09) H 03/14/17 01:15 - ....Imaging Cat Scan: Report Reviewed, Image Reviewed Assessment/Plan Problem List - Problems (1) Anemia Code(s): D64.9 - ANEMIA, UNSPECIFIED (2) Critical lower limb ischemia Code(s): I99.8 - OTHER DISORDER OF CIRCULATORY SYSTEM (3) ESRD (end stage renal disease) Code(s): N18.6 - END STAGE RENAL DISEASE (4) HTN (hypertension) Code(s): I10 - ESSENTIAL (PRIMARY) HYPERTENSION (5) Open wnd foot-complicated Code(s): S91.309A - UNSPECIFIED OPEN WOUND, UNSPECIFIED FOOT, INITIAL ENCOUNTER plan ct abx await for cx for vascular surgery tomorrow rest as per primary
--- NOTE | 2017-03-15 15:37 | PN ---
Progress Note (short form) - Note Progress Note: Renal follow up for ESRD on HD Pt seen and examined at the bedside awake and alert family with him pt came from [place] this weekend last dialysis was done there on Tuesday no sob, chest pain, abd pain Vital Signs Temperature 98 F 03/15/17 14:18 Pulse Rate 80 03/15/17 14:18 Respiratory Rate 18 03/15/17 14:18 Blood Pressure 103/55 03/15/17 14:18 O2 Sat by Pulse Oximetry (%) 98 03/14/17 21:00 Intake & Output 03/12/17 03/13/17 03/14/17 03/15/17 23:59 23:59 23:59 23:59 Intake Total 50 0 Balance 50 0 Weight 141 lb 139 lb 3 oz NAD awake and alert RRR CTA, dec BS at bases Soft NT Abd Right AKA, left foot in dressing CBC, BMP 03/14/17 21:15 03/15/17 10:00 Current Medications Alprazolam (Xanax -) 0.25 mg PO HS [facility] Last Admin: 03/14/17 21:09 Dose: 0.25 mg Aspirin (Asa -) 81 mg PO DAILY [facility] Last Admin: 03/15/17 14:51 Dose: Not Given Budesonide/Formoterol Fumarate (Symbicort 80/4.5mcg -) 2 puff IH BID [facility] Last Admin: 03/15/17 14:51 Dose: Not Given Cilostazol (Pletal -) 100 mg PO BID [facility] Last Admin: 03/15/17 14:51 Dose: Not Given Diphenhydramine HCl (Benadryl -) 25 mg PO Q6H PRN PRN Reason: FOR ITCHING Last Admin: 03/15/17 13:04 Dose: 25 mg Heparin Sodium (Porcine) (Heparin -) 1,000 unit IVPUSH PRN PRN PRN Reason: Heparin Heparin Sodium (Porcine) (Heparin -) 5,000 unit IVPUSH PRN PRN PRN Reason: Heparin Heparin Sodium/Dextrose (Heparin Infusion -) 500 mls @ 16 mls/hr IVPB TITR [facility] ; 800 UNITS/HR PRN Reason: Protocol Last Admin: 03/15/17 11:14 Dose: 16 mls/hr Morphine Sulfate (Morphine Sulfate) 2 mg IVPUSH Q4H PRN PRN Reason: PAIN Last Admin: 03/15/17 06:28 Dose: 2 mg Rosuvastatin Calcium (Crestor -) 10 mg PO HS [facility] Sucralfate (Carafate Oral Suspension -) 0.5 gm PO BID [facility] Last Admin: 03/15/17 10:34 Dose: 0.5 gm 77 year old gentleman with PMhx of ESRD on HD (TTS), Hypertension, DVT, PVD s/p right AKA and left toe amputation who presented to the ED with complaints of pain in his left foot and admitted fro soft tissue infection of the foot with concern for worsening ischemic disease. #ESRD on HD (TTS) For dialysis today with UF as tolerated will need outpatient HD set up (will need to activate emergency medicaid) Renal Diet #Wound/Ischemia of left LE for angiogram and angioplasty tomorrow #Acute on Chronic Anemia likely due to infection but need to r/o blood loss continue IVANIA with HD transfuse for Hgb less then 8 Thank you Raghu Boogie DO Problem List - Problems (1) Anemia Code(s): D64.9 - ANEMIA, UNSPECIFIED (2) Critical lower limb ischemia Code(s): I99.8 - OTHER DISORDER OF CIRCULATORY SYSTEM (3) ESRD (end stage renal disease) Code(s): N18.6 - END STAGE RENAL DISEASE (4) HTN (hypertension) Code(s): I10 - ESSENTIAL (PRIMARY) HYPERTENSION Qualifiers: Hypertension type: essential hypertension Qualified Code(s): I10 - Essential (primary) hypertension; I10 - Essential (primary) hypertension; I10 - Essential (primary) hypertension (5) Open wnd foot-complicated Code(s): S91.309A - UNSPECIFIED OPEN WOUND, UNSPECIFIED FOOT, INITIAL ENCOUNTER
[2017-03-15] MEDS ORDERED: PT OWN MED DRAWER 7, Y5N ONE (21:36)
[2017-03-15] MEDS ORDERED: ROSUVASTATIN CA 10 MG TABLET (FP) PO SCH (22:00)
[2017-03-15] MEDS: ALPRAZolam 0.25 MG TABLET PO SCH (22:22)
[2017-03-16] MEDS: HEPARIN INFUSION - 500 ML IVPB SCH ×2 (00:10→12:57)
[2017-03-16] MEDS: morphine CARPU-JECT 8 MG/1 ML DISP.SYRIN IVPUSH PRN ×3 (00:46→20:56)
[2017-03-16] MEDS: diphenhydrAMINE HCL 25 MG CAPSULE (FP) PO PRN (01:12)
[2017-03-16 06:06] LABS: SERUM IRON 17 ug/dL (38-169); TOTAL IRON BINDING CAPACITY 153 ug/dL (250-450); UIBC 136 ug/dL (111-343)
[2017-03-16] MEDS ORDERED: PT OWN MED DRAWER 7, Y5N ONE ×2 (06:35→21:24)
[2017-03-16 08:04] LABS: BASOPHIL 1.1 % (0-2.0); EOSINOPHIL 1.2 % (0-4.5); MCH 28.1 pg (25.7-33.7); MCHC 32.7 g/dl (32.0-35.9); MEAN CELL VOLUME 85.9 fl (80-96); MEAN PLT VOLUME 7.5 fl (7.5-11.1); NEUTROPHILS 81.4 % (42.8-82.8); PLATELET COUNT 90 K/MM3 (134-434); WHITE BLOOD COUNT 6.2 K/mm3 (4.0-10.0)
[2017-03-16 08:33] LABS: CHOLESTEROL 70 mg/dL (50-200)
[2017-03-16 08:35] LABS: ALBUMIN 2.1 g/dl (3.4-5.0); ANION GAP 12 (8-16); CALCIUM 7.5 mg/dL (8.5-10.1); CO2 26 mmol/L (21-32); CREATININE 5.6 mg/dL (0.7-1.3); GLUCOSE,RANDOM 75 mg/dL (74-106); MAGNESIUM 1.7 mg/dL (1.8-2.4); PHOSPHOROUS 2.9 mg/dL (2.5-4.9); SGOT/AST 6 U/L (15-37); SGPT/ALT 7 U/L (12-78)
[2017-03-16 08:37] LABS: ALK PHOS 123 U/L (45-117); BILIRUBIN,TOTAL 0.5 mg/dL (0.2-1.0)
[2017-03-16] MEDS ORDERED: RANITIDINE HCL 150 MG/10 ML UNIT-DOSE PO SCH (10:00)
[2017-03-16] MEDS: BUDESONIDE/FORMETEROL FUMARATE 80/4.5 mcg INHALER IH SCH (10:24)
[2017-03-16] MEDS ORDERED: IRON SUCROSE INJECTION 100 MG in SODIUM CHLORIDE 95 ML IVPB ONE ×2 (10:30→15:32)
[2017-03-16] MEDS ORDERED: MAGNESIUM CL 64 MG TABLET.SA PO ONE ×2 (11:33→15:32)
--- NOTE | 2017-03-16 12:44 | PN ---
Progress Note (short form) - Note Progress Note: Subjective: The patient was seen and examined at the bedside, he has complaints of left foot pain For angiogram today Current Medications Generic Name Dose Route Start Last Admin Trade Name Freq PRN Reason Stop Dose Admin Alprazolam 0.25 mg 03/14/17 22:00 03/15/17 22:22 Xanax - PO 0.25 mg HS [facility] Administration Aspirin 81 mg 03/15/17 10:00 03/16/17 12:56 Asa - PO Not Given DAILY [facility] Budesonide/Formoterol Fumarate 2 puff 03/14/17 11:15 03/16/17 10:24 Symbicort 80/4.5mcg - IH 2 puff BID [facility] Administration Cilostazol 100 mg 03/15/17 10:00 03/16/17 12:56 Pletal - PO Not Given BID [facility] Diphenhydramine HCl 25 mg 03/15/17 12:27 03/16/17 01:12 Benadryl - PO 25 mg Q6H PRN Administration FOR ITCHING Fentanyl 25 mcg 03/16/17 14:31 Sublimaze Injection - IVPUSH 03/19/17 14:32 [id number] PRN PAIN Heparin Sodium (Porcine) 1,000 unit 03/15/17 08:00 03/16/17 00:09 Heparin - IVPUSH 1,000 unit PRN PRN Administration Heparin Heparin Sodium (Porcine) 5,000 unit 03/15/17 08:00 Heparin - IVPUSH PRN PRN Heparin Heparin Sodium/Dextrose 500 mls @ 16 mls/hr 03/15/17 11:00 03/16/17 12:57 Heparin Infusion - IVPB Not Given TITR [facility] Protocol 800 UNITS/HR Morphine Sulfate 2 mg 03/14/17 13:27 03/16/17 10:22 Morphine Sulfate IVPUSH 2 mg Q4H PRN Administration PAIN Ranitidine HCl 150 mg 03/16/17 10:00 03/16/17 12:56 Zantac Oral Solution - PO Not Given DAILY [facility] Rosuvastatin Calcium 10 mg 03/15/17 22:00 03/15/17 22:22 Crestor - PO 10 mg HS [facility] Administration Sucralfate 0.5 gm 03/14/17 22:00 03/16/17 12:56 Carafate Oral Suspension - PO Not Given BID [facility] Objective: Vital Signs Period Temp Pulse Resp BP Sys/Coleman Pulse Ox Last 24 Hr 97.8 F-98.2 F 70-92 18-19 96-142/50-74 98 Physical Exam: General: NAD, A&Ox3 Lungs: CTA bilaterally Heart: Irregular rate, S1S2 Abd: Soft, non-tender, non-distended. Normoactive bowel sounds Ext: Left 2x2 lateral malleolus ulcer, no drainage. 2nd digit amputation site with yellowish discharge. Malodorous. Left foot swelling and erythema CBCD WBC 6.2 K/mm3 (4.0-10.0) 03/16/17 06:48 RBC 2.86 M/mm3 (4.00-5.60) L 03/16/17 06:48 Hgb 8.0 GM/dL (11.7-16.9) L 03/16/17 06:48 Hct 24.6 % (35.4-49) L 03/16/17 06:48 MCV 85.9 fl (80-96) 03/16/17 06:48 MCHC 32.7 g/dl (32.0-35.9) 03/16/17 06:48 RDW 16.0 % (11.9-15.9) H 03/16/17 06:48 Plt Count 90 K/MM3 (134-434) L 03/16/17 06:48 MPV 7.5 fl (7.5-11.1) 03/16/17 06:48 CMP Sodium 140 mmol/L (136-145) 03/16/17 06:48 Potassium 3.8 mmol/L (3.5-5.1) 03/16/17 06:48 Chloride 102 mmol/L (98-107) 03/16/17 06:48 Carbon Dioxide 26 mmol/L (21-32) 03/16/17 06:48 Anion Gap 12 (8-16) 03/16/17 06:48 BUN 38 mg/dL (7-18) H D 03/16/17 06:48 Creatinine 5.6 mg/dL (0.7-1.3) H 03/16/17 06:48 Creat Clearance w eGFR 9.95 (>60) 03/16/17 06:48 Random Glucose 75 mg/dL (74-106) 03/16/17 06:48 Calcium 7.5 mg/dL (8.5-10.1) L 03/16/17 06:48 Total Bilirubin 0.5 mg/dL (0.2-1.0) 03/16/17 06:48 AST 6 U/L (15-37) L 03/16/17 06:48 ALT 7 U/L (12-78) L D 03/16/17 06:48 Alkaline Phosphatase 123 U/L (45-117) H 03/16/17 06:48 Total Protein 5.0 g/dl (6.4-8.2) L 03/16/17 06:48 Albumin 2.1 g/dl (3.4-5.0) L 03/16/17 06:48 CARDIAC ENZYMES Creatine Kinase 17 IU/L (39-308) L 03/14/17 01:15 Troponin I 0.03 ng/ml (0.00-0.05) 03/14/17 01:15 Microbiology 03/14/17 13:30 Foot - Left Gram Stain - Final 03/14/17 13:30 Foot - Left Wound Culture - Preliminary Non Lactose Fermenting Gnb Pending Organism 03/14/17 01:20 Blood - Peripheral Venous Blood Culture - Preliminary NO GROWTH OBTAINED AFTER 48 HOURS, INCUBATION TO CONTINUE FOR 3 DAYS. 03/14/17 01:15 Blood - Peripheral Venous Blood Culture - Preliminary NO GROWTH OBTAINED AFTER 48 HOURS, INCUBATION TO CONTINUE FOR 3 DAYS. Imagin03/14/2017: CT/Abdomen CTA AOR & RLE Runoff: Extensive severe diffuse aortoiliac , femoro-popliteal and intrapoplitea, occluded left SFA and mucus occlusion of flow in a severely diseased the renal artery demonstrates at lease 70-90% stenosis. Occluded left ENMANUEL and two vessel runoff provided by RN [employer] and PA however degree of disease and stenosis cannot be discerned due to calcification and hardening artifacts. enlarged prostate. Small right sided pleural effusion with severe right lung base atelectic changes vs pnemonic infiltrates. 03/14/2017: US/Duplex arterial legs, limited ultrasound: Extensive artheroscleoric disease with occlusion of the SFA. There is weak, monosphasic flow present within the popliteal and posterior tibial arteries. Assessment: This is a 77 year old male with PMHx of ESRD on HD (T,,Sa), HTN, DVT, right AKA 3 months ago, left 2nd digit amputation lower extremity, who presented to the ED for worsening left foot pain. Plan: 1) Left SFA occlusion, left foot gangrene - Imaging as above - S/p aortogram with LLE angiogram today - Back to OR tomorrow for retrograde puncture through left popliteal artery - NPO after midnight - Received doses of Vancomycin and Zosyn on 03/14, call placed to ID for continuation of antibiotics - Pain management - Appreciate ID consult - Appreciate vascular surgery consult Hx of DVT - Continue Heparin gtt 2) ESRD - Continue HD as scheduled - Renal diet 3) A.fib, chronic - Continue Heparin gtt for now - Will transition to coumadin after invasive procedures 4) Chronic anemia - Hgb stable - Continue to monitor 5) F/E/N: - Monitor electrolytes - Renal diet - NPO after midnight 6) Prophylaxis: - On Heparin gtt 7) Dispo: - Requires continued inpatient care CODE STATUS: FULL CODE Visit type - Emergency Visit Emergency Visit: Yes ED Registration Date: 03/14/17 Care time: The patient presented to the Emergency Department on the above date and was hospitalized for further evaluation of their emergent condition. - New Patient This patient is new to me today: Yes Date on this admission: 03/16/17 - Critical Care Critical Care patient: No
--- NOTE | 2017-03-16 12:45 | PN ---
Progress Note, Physician History of Present Illness: stable no new issues son present patient going for vascular procedure - Current Medication List Current Medications: Active Medications Alprazolam (Xanax -) 0.25 mg PO HS [facility] Last Admin: 03/15/17 22:22 Dose: 0.25 mg Aspirin (Asa -) 81 mg PO DAILY [facility] Last Admin: 03/15/17 14:51 Dose: Not Given Budesonide/Formoterol Fumarate (Symbicort 80/4.5mcg -) 2 puff IH BID [facility] Last Admin: 03/16/17 10:24 Dose: 2 puff Cilostazol (Pletal -) 100 mg PO BID [facility] Last Admin: 03/15/17 22:22 Dose: 100 mg Diphenhydramine HCl (Benadryl -) 25 mg PO Q6H PRN PRN Reason: FOR ITCHING Last Admin: 03/16/17 01:12 Dose: 25 mg Heparin Sodium (Porcine) (Heparin -) 1,000 unit IVPUSH PRN PRN PRN Reason: Heparin Last Admin: 03/16/17 00:09 Dose: 1,000 unit Heparin Sodium (Porcine) (Heparin -) 5,000 unit IVPUSH PRN PRN PRN Reason: Heparin Heparin Sodium/Dextrose (Heparin Infusion -) 500 mls @ 16 mls/hr IVPB TITR [facility] ; 800 UNITS/HR PRN Reason: Protocol Last Admin: 03/16/17 00:10 Dose: 18 mls/hr Morphine Sulfate (Morphine Sulfate) 2 mg IVPUSH Q4H PRN PRN Reason: PAIN Last Admin: 03/16/17 10:22 Dose: 2 mg Ranitidine HCl (Zantac Oral Solution -) 150 mg PO DAILY [facility] Rosuvastatin Calcium (Crestor -) 10 mg PO HS [facility] Last Admin: 03/15/17 22:22 Dose: 10 mg Sucralfate (Carafate Oral Suspension -) 0.5 gm PO BID [facility] Last Admin: 03/15/17 22:22 Dose: 0.5 gm - Objective Vital Signs: Vital Signs Temperature 97.8 F 03/16/17 05:56 Pulse Rate 92 H 03/16/17 10:00 Respiratory Rate 18 03/16/17 10:00 Blood Pressure 142/72 03/16/17 10:00 O2 Sat by Pulse Oximetry (%) 98 03/15/17 21:00 Constitutional: Yes: No Distress, Calm Neck: Yes: Other (line in place) Cardiovascular: Yes: Regular Rate and Rhythm Respiratory: Yes: Regular, CTA Bilaterally Gastrointestinal: Yes: Normal Bowel Sounds, Soft Musculoskeletal: Yes: Other Extremities: Yes: Other Integumentary: Yes: Erythema Wound/Incision: Yes: Draining Neurological: Yes: Alert Psychiatric: Yes: Alert Labs: CBC, BMP 03/16/17 06:48 03/16/17 06:48 INR, PTT INR 1.26 (0.82-1.09) H 03/14/17 01:15 Assessment/Plan Problem List - Problems (1) Anemia Code(s): D64.9 - ANEMIA, UNSPECIFIED (2) Critical lower limb ischemia Code(s): I99.8 - OTHER DISORDER OF CIRCULATORY SYSTEM (3) ESRD (end stage renal disease) Code(s): N18.6 - END STAGE RENAL DISEASE (4) HTN (hypertension) Code(s): I10 - ESSENTIAL (PRIMARY) HYPERTENSION (5) Open wnd foot-complicated Code(s): S91.309A - UNSPECIFIED OPEN WOUND, UNSPECIFIED FOOT, INITIAL ENCOUNTER plan ct abx cx result noted await for identification of the bacteria vascular surgery today rest as per primary
[2017-03-16] MEDS ORDERED: LIDOCAINE HCL 1%, 10 MG/ML (20ML VIAL) ONE (12:55)
[2017-03-16] MEDS ORDERED: HEPARIN NA (PORCINE) 5,000 UNITS/ML 1ML VIAL ONE (12:55)
[2017-03-16] MEDS: ASPIRIN 81 MG CHEWABLE TABLETS PO SCH (12:56)
[2017-03-16] MEDS: CILOSTAZOL 100 MG TABLET PO SCH (12:56)
[2017-03-16] MEDS: SUCRALFATE 1 GM/10 ML UNIT DOSE CUPS PO SCH (12:56)
[2017-03-16] MEDS ORDERED: ceFAZolin SODIUM 1 GM VIAL IVPB ONE (13:48)
[2017-03-16] MEDS ORDERED: PROPOFOL 20 ML ONE ×3 (13:51)
[2017-03-16] MEDS ORDERED: ceFAZolin SODIUM 1 GM VIAL ONE (13:52)
[2017-03-16] MEDS ORDERED: MIDAZOLAM HCL 2 MG/2 ML SINGLE DOSE VIAL ONE (13:52)
[2017-03-16] MEDS ORDERED: LIDOCAINE HCL 1%, 10 MG/ML (50 mL VIAL) IJ ONE (13:57)
--- NOTE | 2017-03-16 14:02 | PN ---
Progress Note, Physician Chief Complaint: Not in distress Spoke with Dr. Villa regarding angiography done today with SFA occlusion and difficulty with the presence of AAA History of Present Illness: Patient was seen and examined. Awake. Chart was reviewed Echocardiography reveals severely reduced LV systolic function, severe TR, moderate pulmonary HTN, mild AR, severely dilated LA and RA Denies chest pain or SOB - Current Medication List Current Medications: Active Medications Alprazolam (Xanax -) 0.25 mg PO HS [facility] Last Admin: 03/15/17 22:22 Dose: 0.25 mg Aspirin (Asa -) 81 mg PO DAILY [facility] Last Admin: 03/16/17 12:56 Dose: Not Given Budesonide/Formoterol Fumarate (Symbicort 80/4.5mcg -) 2 puff IH BID [facility] Last Admin: 03/16/17 10:24 Dose: 2 puff Cilostazol (Pletal -) 100 mg PO BID [facility] Last Admin: 03/16/17 12:56 Dose: Not Given Diphenhydramine HCl (Benadryl -) 25 mg PO Q6H PRN PRN Reason: FOR ITCHING Last Admin: 03/16/17 01:12 Dose: 25 mg Heparin Sodium (Porcine) (Heparin -) 1,000 unit IVPUSH PRN PRN PRN Reason: Heparin Last Admin: 03/16/17 00:09 Dose: 1,000 unit Heparin Sodium (Porcine) (Heparin -) 5,000 unit IVPUSH PRN PRN PRN Reason: Heparin Heparin Sodium/Dextrose (Heparin Infusion -) 500 mls @ 16 mls/hr IVPB TITR [facility] ; 800 UNITS/HR PRN Reason: Protocol Last Admin: 03/16/17 12:57 Dose: Not Given Morphine Sulfate (Morphine Sulfate) 2 mg IVPUSH Q4H PRN PRN Reason: PAIN Last Admin: 03/16/17 10:22 Dose: 2 mg Ranitidine HCl (Zantac Oral Solution -) 150 mg PO DAILY [facility] Last Admin: 03/16/17 12:56 Dose: Not Given Rosuvastatin Calcium (Crestor -) 10 mg PO HS [facility] Last Admin: 03/15/17 22:22 Dose: 10 mg Sucralfate (Carafate Oral Suspension -) 0.5 gm PO BID [facility] Last Admin: 03/16/17 12:56 Dose: Not Given - Objective Vital Signs: Vital Signs Temperature 97.8 F 03/16/17 05:56 Pulse Rate 92 H 03/16/17 10:00 Respiratory Rate 18 03/16/17 10:00 Blood Pressure 142/72 03/16/17 10:00 O2 Sat by Pulse Oximetry (%) 98 03/15/17 21:00 Cardiovascular: Yes: Pulse Irregular, Murmur (Soft SM), S1, S2 Respiratory: Yes: Diminished Gastrointestinal: Yes: Normal Bowel Sounds, Soft. No: Tenderness Extremities: Yes: Amputation Edema: No Additional Findings/Remarks: - Review of Systems Constitutional: denies: Chills, Fever Cardiovascular: denies: Chest Pain, Palpitations, Shortness of Breath Respiratory: denies: Cough, Hemoptysis, Orthopnea, PND, SOB, SOB on Exertion Gastrointestinal: denies: Abdominal Pain, Constipation, Diarrhea, Melena, Nausea , Rectal Bleeding, Vomiting Musculoskeletal: reports: Extremity Pain, Joint Pain Neurological: denies: Dizziness, Headache, Seizure, Syncope Labs: CBC, BMP 03/16/17 06:48 03/16/17 06:48 INR, PTT INR 1.26 (0.82-1.09) H 03/14/17 01:15 Problem List - Problems (1) Anemia Code(s): D64.9 - ANEMIA, UNSPECIFIED (2) Critical lower limb ischemia Code(s): I99.8 - OTHER DISORDER OF CIRCULATORY SYSTEM (3) ESRD (end stage renal disease) Code(s): N18.6 - END STAGE RENAL DISEASE (4) HLD (hyperlipidemia) Code(s): E78.5 - HYPERLIPIDEMIA, UNSPECIFIED Qualifiers: Hyperlipidemia type: pure hypercholesterolemia Qualified Code(s): E78.00 - Pure hypercholesterolemia, unspecified; E78.00 - Pure hypercholesterolemia, unspecified; E78.00 - Pure hypercholesterolemia, unspecified; E78.0 - Pure hypercholesterolemia (5) HTN (hypertension) Code(s): I10 - ESSENTIAL (PRIMARY) HYPERTENSION Qualifiers: Hypertension type: essential hypertension Qualified Code(s): I10 - Essential (primary) hypertension; I10 - Essential (primary) hypertension; I10 - Essential (primary) hypertension (6) S/P AKA (above knee amputation) Code(s): Z89.619 - ACQUIRED ABSENCE OF UNSPECIFIED LEG ABOVE KNEE Qualifiers: Laterality: right Qualified Code(s): Z89.611 - Acquired absence of right leg above knee; Z89.611 - Acquired absence of right leg above knee; Z89.611 - Acquired absence of right leg above knee (7) Amputated toe of left foot Code(s): Z89.422 - ACQUIRED ABSENCE OF OTHER LEFT TOE(S) (8) Atrial fibrillation Code(s): I48.91 - UNSPECIFIED ATRIAL FIBRILLATION Qualifiers: Atrial fibrillation type: persistent Qualified Code(s): I48.1 - Persistent atrial fibrillation; I48.1 - Persistent atrial fibrillation; I48.1 - Persistent atrial fibrillation; I48.1 - Persistent atrial fibrillation (9) Cardiomyopathy Code(s): I42.9 - CARDIOMYOPATHY, UNSPECIFIED Qualifiers: Cardiomyopathy type: unspecified Qualified Code(s): I42.9 - Cardiomyopathy, unspecified; I42.9 - Cardiomyopathy, unspecified; I42.9 - Cardiomyopathy, unspecified; I42.9 - Cardiomyopathy, unspecified (10) Systolic dysfunction, left ventricle Code(s): I51.9 - HEART DISEASE, UNSPECIFIED Assessment/Plan 1. PAD S/P right AKA and left toe amputation, occluded left SFA and AAA (4.6 cm ) s/p angiography today for further planned intervention 2. Renal artery disease with ESRD on HD 3. HTN/HCVD 4. Persistent AF ([id number] score of 4) 5. History of DVT 6. Severe LV systolic dysfunction/cardiomyopathy 7. Severe tricuspid valve regurgitation with pulmonary hypertension PLAN: 1. Transthoracic echocardiography report was noted. Etiology of LV systolic dysfunction is unknown and possible coronary artery disease may need to be assessed with pharmacological nuclear myocardial perfusion imaging study ( mostly for risk stratification). In the interim, patient may proceed with further vascular intervention with understanding increase risk especially with general anesthesia. If bypass is to be the choice of therapy, further cardiac work up will be needed. 2. No absolute contraindication in proceeding with discussed vascular work up in view of absence of ischemic symptoms, decompensated congestive heart failure or malignant arrhythmias, however; as above, patient is at an increased risk with multiple co-morbidities. 3. Continue with HD 4. Continue Heparin protocol. Eventually he will need to be on Warfarin therapy 5. Initiate Carvedilol and up-titrate. Further cardiac medications are to follow pending BP 6. Continue statin therapy and check lipid panel 7. AAA also needs to be followed as outpatient Further plans are to follow. Ion Landrum MD
--- NOTE | 2017-03-16 14:51 | PN ---
Progress Note (short form) - Note Progress Note: Vascular Surgery S/P LLE angiogram. Pt with AAA, and left SFA occlusion. SFA comes back above the knee. Will go back to OR [facility] for retrograde puncture through left popliteal artery. NPO past midnight . Spoke to son about plan. Faizan Villa DO
--- NOTE | 2017-03-16 14:57 | OP ---
Operative Note - Note: Operative Date: 03/16/17 Pre-Operative Diagnosis: Left foot gangrene Operation: Aortogram, LLE angiogram Post-Operative Diagnosis: Same as Pre-op Surgeon: Faizan Villa Anesthesia: Fractional Estimated Blood Loss (mls): 20 Operative Report Dictated: Yes
[2017-03-16] MEDS ORDERED: HEPARIN NA (PORCINE) 5,000 UNITS/ML 1ML VIAL IVPUSH PRN ×6 (15:32→16:45)
[2017-03-16] MEDS ORDERED: HEPARIN INFUSION - 500 ML IVPB SCH ×2 (15:32→16:45)
[2017-03-16] MEDS ORDERED: diphenhydrAMINE HCL 25 MG CAPSULE (FP) PO PRN (15:32)
--- NOTE | 2017-03-16 16:50 | OP ---
DATE OF OPERATION: 03/16/2017 PREOPERATIVE DIAGNOSIS: Left foot gangrene. POSTOPERATIVE DIAGNOSIS: Left foot gangrene. PROCEDURE PERFORMED: Aortogram, left lower extremity angiogram. SURGEON: Faizan Tamayo DO ANESTHESIA: Fractional. BLOOD LOSS: 20 mL. INDICATIONS: The patient is a 77-year-old male who recently came over from [facility] on Tuesday. He resides in [facility] and was brought over by his family. He recently had a right below-knee amputation done in [facility] and recently had a left lower extremity angiogram and a 2nd to amputation done there. After his 2nd toe amputation was done, thereafter it has not healed, and the patient continues to have pain in his left lower extremity. He flew in from [facility] on Tuesday and came into the hospital on Tuesday night to Tuesday morning. He then had a CTA done on Tuesday, showing that he has left SFA occlusion, and it was decided that he would need an angiogram. DESCRIPTION OF PROCEDURE: The patient's son consented for the procedure, understanding all risks, benefits and alternatives. The patient was then taken to the operating room. Once in the operating room, the patient was laid on the operating table in the supine manner. The areas of the left and left groin were prepped and draped in a sterile surgical manner. We then went ahead and injected 10 mL of lidocaine 1% over the right common femoral artery. We then punctured the right common femoral artery using our Micropuncture needle. Micropuncture wire was inserted, and an additional 5-Estonian sheath was inserted. A 0.035 floppy guidewire was inserted up into the aorta, which was very difficult due to the fact that the patient has 4.7-cm AAA. We placed an Omni Flush catheter in, and we were able to get the catheter up above the aneurysm. We then shot an aortogram by hand injection, showing that aorta and the iliac arteries were very tortuous and very calcified, and there was an aneurysm present. Thereafter we could not cross over using our 0.035 stiff guidewire. At this point we shot an angiogram from the left common iliac, and we were able to see that the common femoral artery is patent and the profunda is patent, but the SFA is occluded from its origin and comes back above the knee. Below-knee popliteal and behind-knee popliteal arteries are patent. At this point we decided that since we cannot cross up and over, and it probably is not a good idea to stick the patient ipsilaterally, considering we do not have enough space and the SFA is closed, we decided that we would probably need to bring the patient back and stick the left popliteal artery and go retrograde and perform angioplasty and stent. That will be done in a separate setting tomorrow. At this point our Omni Flush catheter was removed. Our sheath was removed. Pressure was held on the right groin for 5 minutes. Afterwards there was no bleeding. The area was wet and dried, and Dermabond was placed. The patient tolerated the procedure with no complications. The patient was transferred to the PACU in stable condition. I spoke to the son at length about what is going on with his father currently, and that we are going to take the patient back tomorrow to do a retrograde stick from the left popliteal artery. I also spoke to Cardiology, and they will clear the patient for possible general anesthesia. FAIZAN TAMAYO DO NP/[id number]
[2017-03-16] MEDS: HEPARIN NA (PORCINE) 5,000 UNITS/ML 1ML VIAL IVPUSH PRN (17:13)
[2017-03-16] MEDS ORDERED: SUCRALFATE 1 GM/10 ML UNIT DOSE CUPS PO SCH (22:00)
[2017-03-16] MEDS ORDERED: CILOSTAZOL 100 MG TABLET PO SCH (22:00)
[2017-03-16] MEDS ORDERED: ALPRAZolam 0.25 MG TABLET PO SCH (22:00)
[2017-03-16] MEDS ORDERED: CARVEDILOL 3.125 MG TABLET (FP) PO SCH (22:00)
[2017-03-16] MEDS ORDERED: ROSUVASTATIN CA 10 MG TABLET (FP) PO SCH (22:00)
[2017-03-16] MEDS ORDERED: BUDESONIDE/FORMETEROL FUMARATE 80/4.5 mcg INHALER IH SCH (22:00)
[2017-03-17] MEDS: HEPARIN NA (PORCINE) 5,000 UNITS/ML 1ML VIAL IVPUSH PRN (00:41)
[2017-03-17] MEDS: morphine CARPU-JECT 8 MG/1 ML DISP.SYRIN IVPUSH PRN ×2 (00:49→05:49)
--- NOTE | 2017-03-17 02:45 | FALL ---
Fall Exam - Event Witnessed fall: No Location of Fall: Patient Room Fall from: Bed - Pre-Fall Fall Risk: High Risk Mental Status: Alert, Cooperative Current Medications: Current Medications Generic Name Dose Route Start Last Admin Trade Name Freq PRN Reason Stop Dose Admin Alprazolam 0.25 mg 03/16/17 22:00 03/16/17 21:03 Xanax - PO 0.25 mg HS [facility] Administration Aspirin 81 mg 03/17/17 10:00 Asa - PO DAILY [facility] Budesonide/Formoterol Fumarate 2 puff 03/16/17 22:00 03/16/17 21:05 Symbicort 80/4.5mcg - IH 2 puff BID [facility] Administration Carvedilol 3.125 mg 03/16/17 22:00 03/16/17 21:03 Coreg - PO 3.125 mg BID [facility] Administration Cilostazol 100 mg 03/16/17 22:00 03/16/17 21:05 Pletal - PO 100 mg BID [facility] Administration Diphenhydramine HCl 25 mg 03/16/17 15:32 03/16/17 21:03 Benadryl - PO 25 mg Q6H PRN Administration FOR ITCHING Epoetin Nash 6,000 units 03/17/17 06:00 Epogen - IVPUSH 03/17/17 06:01 ONCE ONE Fentanyl 25 mcg 03/16/17 15:32 Sublimaze Injection - IVPUSH 03/19/17 14:32 [id number] PRN PAIN Heparin Sodium (Porcine) 1,000 unit 03/16/17 15:32 03/17/17 00:41 Heparin - IVPUSH 1,000 unit PRN PRN Administration Heparin Heparin Sodium (Porcine) 5,000 unit 03/16/17 15:32 Heparin - IVPUSH PRN PRN Heparin Heparin Sodium/Dextrose 500 mls @ 16 mls/hr 03/16/17 15:32 03/17/17 00:43 Heparin Infusion - IVPB 1,100 units/hr TITR [facility] Titration Protocol 800 UNITS/HR Vancomycin HCl 1,000 mg/ 250 mls @ 250 mls/hr 03/17/17 06:00 Dextrose IVPB 03/17/17 06:59 ONCE ONE Protocol Morphine Sulfate 2 mg 03/16/17 15:32 03/17/17 00:49 Morphine Sulfate IVPUSH 2 mg Q4H PRN Administration PAIN Ranitidine HCl 150 mg 03/17/17 10:00 Zantac Oral Solution - PO DAILY [facility] Rosuvastatin Calcium 10 mg 03/16/17 22:00 03/16/17 21:03 Crestor - PO 10 mg HS [facility] Administration Sucralfate 0.5 gm 03/16/17 22:00 03/16/17 21:03 Carafate Oral Suspension - PO 0.5 gm BID [facility] Administration - Post-Fall Patient Outcome: Hematoma, Abrasion/Bruise Exam Findings: Patient is AAOx3, Head: Normotensive, Atraumatic, EENT: + Eccyhmosis, edema to L-orbit, superficial abrasion to tip nare.No lymphadenopathy, mass.Lungs:CTAB, Cardiac: RR, S1S2 no MRG. Abd: Obese, soft, nontender.Musculoskeletal: No obvious deformity, no tenderness upon palpation. Hip/Pelvis: Non tender, ecchymotic bruise to left lateral hip, scarring in healed stage to left mid hip. Lower extremites: R-AKA. vascular wound with dressing to LLE. Treatment: Ice Pack Vital Signs: Vital Signs Temperature 98.1 F 03/16/17 21:03 Pulse Rate 94 H 03/16/17 21:03 Respiratory Rate 20 03/16/17 21:03 Blood Pressure 108/67 03/16/17 21:03 O2 Sat by Pulse Oximetry (%) 96 03/16/17 21:00 LOC Post-Fall: Unchanged Identify factors for HIGH RISK for Head Injury: Pt on anticoagulant
[2017-03-17] MEDS ORDERED: EPOETIN ALFA 2,000 UNITS/1 ML VIAL IVPUSH ONE ×2 (06:00→13:24)
[2017-03-17] MEDS ORDERED: VANCOMYCIN 1,000 MG in DEXTROSE 5%-WATER - 250 ML IVPB ONE ×2 (06:00→13:24)
[2017-03-17 07:37] LABS: BASOPHIL 0.5 % (0-2.0); EOSINOPHIL 0.8 % (0-4.5); MCH 27.9 pg (25.7-33.7); MCHC 32.5 g/dl (32.0-35.9); MEAN CELL VOLUME 85.9 fl (80-96); MEAN PLT VOLUME 7.5 fl (7.5-11.1); NEUTROPHILS 87.4 % (42.8-82.8); PLATELET COUNT 111 K/MM3 (134-434); RDW 16.3 % (11.9-15.9); WHITE BLOOD COUNT 9.9 K/mm3 (4.0-10.0)
[2017-03-17] MEDS ORDERED: BACITRACIN 0.9 GM PACKET TP ONE ×2 (08:00→13:24)
[2017-03-17 08:35] LABS: ALBUMIN 1.9 g/dl (3.4-5.0); ALK PHOS 128 U/L (45-117); ANION GAP 14 (8-16); BILIRUBIN,TOTAL 0.5 mg/dL (0.2-1.0); CALCIUM 7.6 mg/dL (8.5-10.1); CO2 23 mmol/L (21-32); CREATININE 6.8 mg/dL (0.7-1.3); GLUCOSE,RANDOM 58 mg/dL (74-106); MAGNESIUM 2.1 mg/dL (1.8-2.4); SGOT/AST 7 U/L (15-37); SGPT/ALT 7 U/L (12-78); TOT PROT 4.8 g/dl (6.4-8.2)
[2017-03-17] MEDS ORDERED: ASPIRIN 81 MG CHEWABLE TABLETS PO SCH (10:00)
[2017-03-17] MEDS ORDERED: RANITIDINE HCL 150 MG/10 ML UNIT-DOSE PO SCH (10:00)
[2017-03-17] MEDS ORDERED: LIDOCAINE HCL 1%, 10 MG/ML (20ML VIAL) ONE (10:56)
[2017-03-17] MEDS ORDERED: HEPARIN NA (PORCINE) 5,000 UNITS/ML 1ML VIAL ONE ×2 (10:56→12:35)
[2017-03-17] MEDS ORDERED: LIDOCAINE HCL 1%, 10 MG/ML (20ML VIAL) NR ONE (11:25)
[2017-03-17] MEDS ORDERED: MIDAZOLAM HCL 2 MG/2 ML SINGLE DOSE VIAL ONE (12:08)
[2017-03-17] MEDS ORDERED: PROTAMINE SULFATE 50 MG/5 ML VIAL ONE (12:30)
--- NOTE | 2017-03-17 12:57 | OP ---
Operative Note - Note: Operative Date: 03/17/17 Pre-Operative Diagnosis: left foot gangrene Operation: LLE angiogram, SFA DCB angioplasty, SFA Stent placement. Retrograde puncture from left popliteal artery Findings: SFA occlusion from origin Post-Operative Diagnosis: Same as Pre-op Surgeon: Faizan Villa Anesthesia: Fractional Estimated Blood Loss (mls): 30 Operative Report Dictated: Yes
[2017-03-17] MEDS ORDERED: HEPARIN NA (PORCINE) 5,000 UNITS/ML 1ML VIAL IVPUSH PRN ×3 (13:00→17:59)
[2017-03-17] MEDS ORDERED: morphine CARPU-JECT 4 MG/1 ML DISP.SYRIN IVPUSH PRN (13:24)
--- NOTE | 2017-03-17 13:24 | PN ---
Progress Note (short form) - Note Progress Note: Subjective: The patient was seen and examined at the bedside, he has complaints of left foot pain Current Medications Generic Name Dose Route Start Last Admin Trade Name Freq PRN Reason Stop Dose Admin Alprazolam 0.25 mg 03/14/17 22:00 03/15/17 22:22 Xanax - PO 0.25 mg HS [facility] Administration Aspirin 81 mg 03/15/17 10:00 03/16/17 12:56 Asa - PO Not Given DAILY [facility] Budesonide/Formoterol Fumarate 2 puff 03/14/17 11:15 03/16/17 10:24 Symbicort 80/4.5mcg - IH 2 puff BID [facility] Administration Cilostazol 100 mg 03/15/17 10:00 03/16/17 12:56 Pletal - PO Not Given BID [facility] Diphenhydramine HCl 25 mg 03/15/17 12:27 03/16/17 01:12 Benadryl - PO 25 mg Q6H PRN Administration FOR ITCHING Fentanyl 25 mcg 03/16/17 14:31 Sublimaze Injection - IVPUSH 03/19/17 14:32 [id number] PRN PAIN Heparin Sodium (Porcine) 1,000 unit 03/15/17 08:00 03/16/17 00:09 Heparin - IVPUSH 1,000 unit PRN PRN Administration Heparin Heparin Sodium (Porcine) 5,000 unit 03/15/17 08:00 Heparin - IVPUSH PRN PRN Heparin Heparin Sodium/Dextrose 500 mls @ 16 mls/hr 03/15/17 11:00 03/16/17 12:57 Heparin Infusion - IVPB Not Given TITR [facility] Protocol 800 UNITS/HR Morphine Sulfate 2 mg 03/14/17 13:27 03/16/17 10:22 Morphine Sulfate IVPUSH 2 mg Q4H PRN Administration PAIN Ranitidine HCl 150 mg 03/16/17 10:00 03/16/17 12:56 Zantac Oral Solution - PO Not Given DAILY [facility] Rosuvastatin Calcium 10 mg 03/15/17 22:00 03/15/17 22:22 Crestor - PO 10 mg HS [facility] Administration Sucralfate 0.5 gm 03/14/17 22:00 03/16/17 12:56 Carafate Oral Suspension - PO Not Given BID [facility] Objective: Vital Signs Period Temp Pulse Resp BP Sys/Coleman Pulse Ox Last 24 Hr 97.8 F-98.2 F 70-92 18-19 96-142/50-74 98 Physical Exam: General: NAD, A&Ox3 Lungs: CTA bilaterally Heart: Irregular rate, S1S2 Abd: Soft, non-tender, non-distended. Normoactive bowel sounds Ext: Left 2x2 lateral malleolus ulcer, no drainage. 2nd digit amputation site with yellowish discharge. Malodorous. Left foot swelling and erythema CBCD WBC 9.9 K/mm3 (4.0-10.0) D 03/17/17 06:30 RBC 2.88 M/mm3 (4.00-5.60) L 03/17/17 06:30 Hgb 8.0 GM/dL (11.7-16.9) L 03/17/17 06:30 Hct 24.7 % (35.4-49) L 03/17/17 06:30 MCV 85.9 fl (80-96) 03/17/17 06:30 MCHC 32.5 g/dl (32.0-35.9) 03/17/17 06:30 RDW 16.3 % (11.9-15.9) H 03/17/17 06:30 Plt Count 111 K/MM3 (134-434) L D 03/17/17 06:30 MPV 7.5 fl (7.5-11.1) 03/17/17 06:30 CMP Sodium 138 mmol/L (136-145) 03/17/17 06:30 Potassium 4.2 mmol/L (3.5-5.1) 03/17/17 06:30 Chloride 101 mmol/L (98-107) 03/17/17 06:30 Carbon Dioxide 23 mmol/L (21-32) 03/17/17 06:30 Anion Gap 14 (8-16) 03/17/17 06:30 BUN 48 mg/dL (7-18) H D 03/17/17 06:30 Creatinine 6.8 mg/dL (0.7-1.3) H D 03/17/17 06:30 Creat Clearance w eGFR 7.95 (>60) 03/17/17 06:30 Random Glucose 58 mg/dL (74-106) L D 03/17/17 06:30 Calcium 7.6 mg/dL (8.5-10.1) L 03/17/17 06:30 Total Bilirubin 0.5 mg/dL (0.2-1.0) 03/17/17 06:30 AST 7 U/L (15-37) L 03/17/17 06:30 ALT 7 U/L (12-78) L 03/17/17 06:30 Alkaline Phosphatase 128 U/L (45-117) H 03/17/17 06:30 Total Protein 4.8 g/dl (6.4-8.2) L 03/17/17 06:30 Albumin 1.9 g/dl (3.4-5.0) L 03/17/17 06:30 CARDIAC ENZYMES Creatine Kinase 17 IU/L (39-308) L 03/14/17 01:15 Troponin I 0.03 ng/ml (0.00-0.05) 03/14/17 01:15 Microbiology 03/14/17 13:30 Foot - Left Gram Stain - Final 03/14/17 13:30 Foot - Left Wound Culture - Final Serratia Marcescens Raoultella (K) Ornithinolytica 03/14/17 01:20 Blood - Peripheral Venous Blood Culture - Preliminary NO GROWTH OBTAINED AFTER 72 HOURS, INCUBATION TO CONTINUE FOR 2 DAYS. 03/14/17 01:15 Blood - Peripheral Venous Blood Culture - Preliminary NO GROWTH OBTAINED AFTER 72 HOURS, INCUBATION TO CONTINUE FOR 2 DAYS. Imagin03/14/2017: CT/Abdomen CTA AOR & RLE Runoff: Extensive severe diffuse aortoiliac , femoro-popliteal and intrapoplitea, occluded left SFA and mucus occlusion of flow in a severely diseased the renal artery demonstrates at lease 70-90% stenosis. Occluded left ENMANUEL and two vessel runoff provided by [employer] and PA however degree of disease and stenosis cannot be discerned due to calcification and hardening artifacts. enlarged prostate. Small right sided pleural effusion with severe right lung base atelectic changes vs pnemonic infiltrates. 03/14/2017: US/Duplex arterial legs, limited ultrasound: Extensive artheroscleoric disease with occlusion of the SFA. There is weak, monosphasic flow present within the popliteal and posterior tibial arteries. Assessment: This is a 77 year old male with PMHx of ESRD on HD (T,Th,Sa), HTN, DVT, right AKA 3 months ago, left 2nd digit amputation lower extremity, who presented to the ED for worsening left foot pain. Plan: 1) Left SFA occlusion, left foot gangrene - Imaging as above - S/p aortogram with LLE angiogram 03/17 - S/p LLE angiogram, SFA DCB angioplasty, SFA Stent placement. Retrograde puncture from left popliteal artery - Received doses of Vancomycin and Zosyn on 03/14, awaiting further recommendations from ID - Will need MRI per ID to r/o osteo - Pain management - Appreciate ID consult - Appreciate vascular surgery consult Hx of DVT - Continue Heparin gtt 2) ESRD - Continue HD as scheduled - Renal diet 3) A.fib, chronic - Continue Heparin gtt for now - Will transition to coumadin after invasive procedures per cardiology 4) AAA - F/u outpatient 5) Chronic anemia - Hgb stable - Continue to monitor 6) F/E/N: - Monitor electrolytes - Renal diet 7) Prophylaxis: - On Heparin gtt 8) Dispo: - Requires continued inpatient care CODE STATUS: FULL CODE Visit type - Emergency Visit Emergency Visit: Yes ED Registration Date: 03/14/17 Care time: The patient presented to the Emergency Department on the above date and was hospitalized for further evaluation of their emergent condition. - New Patient This patient is new to me today: No - Critical Care Critical Care patient: No
--- NOTE | 2017-03-17 15:09 | PN ---
Progress Note, Physician History of Present Illness: patient post op from vascular stable - Current Medication List Current Medications: Active Medications Alprazolam (Xanax -) 0.25 mg PO HS [facility] Aspirin (Asa -) 81 mg PO DAILY [facility] Budesonide/Formoterol Fumarate (Symbicort 80/4.5mcg -) 2 puff IH BID [facility] Carvedilol (Coreg -) 3.125 mg PO BID [facility] Cilostazol (Pletal -) 100 mg PO BID [facility] Diphenhydramine HCl (Benadryl -) 25 mg PO Q6H PRN PRN Reason: FOR ITCHING Epoetin Nash (Epogen -) 6,000 units IVPUSH ONCE ONE Stop: 03/17/17 13:25 Fentanyl (Sublimaze Injection -) 25 mcg IVPUSH [id number] PRN PRN Reason: PAIN Stop: 03/19/17 14:32 Heparin Sodium (Porcine) (Heparin -) 5,000 unit IVPUSH PRN PRN PRN Reason: Heparin Heparin Sodium (Porcine) (Heparin -) 1,000 unit IVPUSH PRN PRN PRN Reason: Heparin Heparin Sodium/Dextrose (Heparin Infusion -) 500 mls @ 20 mls/hr IVPB TITR [facility] ; 1,000 UNITS/HR PRN Reason: Protocol Piperacillin/Tazobactam/Dextrose (Zosyn 2.25gm Ivpb (Premix)) 50 mls @ 100 mls/ hr IVPB Q8H-IV [facility] PRN Reason: Protocol Morphine Sulfate (Morphine Injection -) 2 mg IVPUSH Q4H PRN PRN Reason: PAIN Ranitidine HCl (Zantac Oral Solution -) 150 mg PO DAILY [facility] Rosuvastatin Calcium (Crestor -) 10 mg PO HS [facility] Sucralfate (Carafate Oral Suspension -) 0.5 gm PO BID [facility] - Objective Vital Signs: Vital Signs Temperature 99.0 F 03/17/17 14:05 Pulse Rate 84 03/17/17 14:05 Respiratory Rate 16 03/17/17 14:05 Blood Pressure 92/55 03/17/17 14:05 O2 Sat by Pulse Oximetry (%) 97 03/17/17 13:50 Constitutional: Yes: Calm, Mild Distress Cardiovascular: Yes: Regular Rate and Rhythm Respiratory: Yes: Regular, CTA Bilaterally Gastrointestinal: Yes: Normal Bowel Sounds, Soft Musculoskeletal: Yes: Other Extremities: Yes: Other Wound/Incision: Yes: Dressing Dry and Intact Neurological: Yes: Alert Psychiatric: Yes: Alert Labs: CBC, BMP 03/17/17 06:30 03/17/17 06:30 INR, PTT INR 1.26 (0.82-1.09) H 03/14/17 01:15 Assessment/Plan Problem List - Problems (1) Anemia Code(s): D64.9 - ANEMIA, UNSPECIFIED (2) Critical lower limb ischemia Code(s): I99.8 - OTHER DISORDER OF CIRCULATORY SYSTEM (3) ESRD (end stage renal disease) Code(s): N18.6 - END STAGE RENAL DISEASE (4) HTN (hypertension) Code(s): I10 - ESSENTIAL (PRIMARY) HYPERTENSION (5) Open wnd foot-complicated Code(s): S91.309A - UNSPECIFIED OPEN WOUND, UNSPECIFIED FOOT, INITIAL ENCOUNTER plan ct abx cx result noted contiue zosyn once patient stable will plan a mri of the foot
--- NOTE | 2017-03-17 16:07 | PN ---
Progress Note (short form) - Note Progress Note: Renal follow up for ESRD on HD Pt seen and examined at the bedside awake and alert s/p angiogram/angioplast with stenting complains of pain in the foot no sob, chest pain Vital Signs Temperature 99.0 F 03/17/17 14:05 Pulse Rate 84 03/17/17 14:05 Respiratory Rate 16 03/17/17 14:05 Blood Pressure 92/55 03/17/17 14:05 O2 Sat by Pulse Oximetry (%) 97 03/17/17 13:50 Intake & Output 03/14/17 03/15/17 03/16/17 03/17/17 23:59 23:59 23:59 23:59 Intake Total 50 150 546 652 Output Total 20 Balance 50 150 526 652 Weight 141 lb 139 lb 3 oz 138 lb 5 oz 141 lb 1 oz NAD awake and alert RRR CTA, dec BS at bases Soft NT Abd Right AKA, left foot in dressing CBC, BMP 03/17/17 06:30 03/17/17 06:30 Current Medications Alprazolam (Xanax -) 0.25 mg PO HS [facility] Aspirin (Asa -) 81 mg PO DAILY [facility] Budesonide/Formoterol Fumarate (Symbicort 80/4.5mcg -) 2 puff IH BID [facility] Carvedilol (Coreg -) 3.125 mg PO BID [facility] Cilostazol (Pletal -) 100 mg PO BID [facility] Diphenhydramine HCl (Benadryl -) 25 mg PO Q6H PRN PRN Reason: FOR ITCHING Epoetin Nash (Epogen -) 6,000 units IVPUSH ONCE ONE Stop: 03/17/17 13:25 Fentanyl (Sublimaze Injection -) 25 mcg IVPUSH [id number] PRN PRN Reason: PAIN Stop: 03/19/17 14:32 Heparin Sodium (Porcine) (Heparin -) 5,000 unit IVPUSH PRN PRN PRN Reason: Heparin Heparin Sodium (Porcine) (Heparin -) 1,000 unit IVPUSH PRN PRN PRN Reason: Heparin Heparin Sodium/Dextrose (Heparin Infusion -) 500 mls @ 20 mls/hr IVPB TITR [facility] ; 1,000 UNITS/HR PRN Reason: Protocol Piperacillin/Tazobactam/Dextrose (Zosyn 2.25gm Ivpb (Premix)) 50 mls @ 100 mls/ hr IVPB Q8H-IV [facility] PRN Reason: Protocol Morphine Sulfate (Morphine Injection -) 2 mg IVPUSH Q4H PRN PRN Reason: PAIN Ranitidine HCl (Zantac Oral Solution -) 150 mg PO DAILY [facility] Rosuvastatin Calcium (Crestor -) 10 mg PO HS [facility] Sucralfate (Carafate Oral Suspension -) 0.5 gm PO BID [facility] 77 year old gentleman with PMhx of ESRD on HD (TTS), Hypertension, DVT, PVD s/p right AKA and left toe amputation who presented to the ED with complaints of pain in his left foot and admitted fro soft tissue infection of the foot with concern for worsening ischemic disease. #ESRD on HD (TTS) HD tomororw AM no acute indication for [employer] today outpatient HD unit placement required #Wound/Ischemia of left LE s/p angioplasty and stenting #Acute on Chronic Anemia likely due to infection but need to r/o blood loss continue IVANIA with HD transfuse for Hgb less then 8 Thank you Raghu Boogie DO Problem List - Problems (1) Anemia Code(s): D64.9 - ANEMIA, UNSPECIFIED (2) Critical lower limb ischemia Code(s): I99.8 - OTHER DISORDER OF CIRCULATORY SYSTEM (3) ESRD (end stage renal disease) Code(s): N18.6 - END STAGE RENAL DISEASE (4) HTN (hypertension) Code(s): I10 - ESSENTIAL (PRIMARY) HYPERTENSION Qualifiers: Hypertension type: essential hypertension Qualified Code(s): I10 - Essential (primary) hypertension; I10 - Essential (primary) hypertension; I10 - Essential (primary) hypertension (5) Open wnd foot-complicated Code(s): S91.309A - UNSPECIFIED OPEN WOUND, UNSPECIFIED FOOT, INITIAL ENCOUNTER
[2017-03-17] MEDS ORDERED: morphine CARPU-JECT 8 MG/1 ML DISP.SYRIN IVPUSH PRN (17:31)
--- NOTE | 2017-03-17 17:56 | PN ---
Progress Note, Physician Chief Complaint: Not in distress S/P SFA angioplasty and stent S/P fall out of his bed resulting in left orbit echymosis History of Present Illness: Patient was seen and examined. Awake. Chart was reviewed Echocardiography reveals severely reduced LV systolic function, severe TR, moderate pulmonary HTN, mild AR, severely dilated LA and RA - Current Medication List Current Medications: Active Medications Alprazolam (Xanax -) 0.25 mg PO HS [facility] Aspirin (Asa -) 81 mg PO DAILY [facility] Budesonide/Formoterol Fumarate (Symbicort 80/4.5mcg -) 2 puff IH BID [facility] Carvedilol (Coreg -) 3.125 mg PO BID [facility] Cilostazol (Pletal -) 100 mg PO BID [facility] Diphenhydramine HCl (Benadryl -) 25 mg PO Q6H PRN PRN Reason: FOR ITCHING Epoetin Nash (Epogen -) 6,000 units IVPUSH ONCE ONE Stop: 03/18/17 06:01 Fentanyl (Sublimaze Injection -) 25 mcg IVPUSH [id number] PRN PRN Reason: PAIN Stop: 03/19/17 14:32 Heparin Sodium (Porcine) (Heparin -) 5,000 unit IVPUSH PRN PRN PRN Reason: Heparin Heparin Sodium (Porcine) (Heparin -) 1,000 unit IVPUSH PRN PRN PRN Reason: Heparin Heparin Sodium/Dextrose (Heparin Infusion -) 500 mls @ 20 mls/hr IVPB TITR [facility] ; 1,000 UNITS/HR PRN Reason: Protocol Piperacillin/Tazobactam/Dextrose (Zosyn 2.25gm Ivpb (Premix)) 50 mls @ 100 mls/ hr IVPB Q8H-IV [facility] PRN Reason: Protocol Morphine Sulfate (Morphine Sulfate) 2 mg IVPUSH Q4H PRN PRN Reason: PAIN Ranitidine HCl (Zantac Oral Solution -) 150 mg PO DAILY [facility] Rosuvastatin Calcium (Crestor -) 10 mg PO HS [facility] Sucralfate (Carafate Oral Suspension -) 0.5 gm PO BID [facility] - Objective Vital Signs: Vital Signs Temperature 99.0 F 03/17/17 14:05 Pulse Rate 84 03/17/17 14:05 Respiratory Rate 16 03/17/17 14:05 Blood Pressure 92/55 03/17/17 14:05 O2 Sat by Pulse Oximetry (%) 97 03/17/17 13:50 Neck: Yes: Supple Cardiovascular: Yes: Regular Rate and Rhythm, S1, S2 Respiratory: Yes: Diminished Gastrointestinal: Yes: Normal Bowel Sounds, Soft. No: Tenderness Extremities: Yes: Amputation Labs: CBC, BMP 03/17/17 06:30 03/17/17 06:30 - ....Imaging Cat Scan: Report Reviewed (Head CT post fall unremarkable) Problem List - Problems (1) Anemia Code(s): D64.9 - ANEMIA, UNSPECIFIED (2) Critical lower limb ischemia Code(s): I99.8 - OTHER DISORDER OF CIRCULATORY SYSTEM (3) ESRD (end stage renal disease) Code(s): N18.6 - END STAGE RENAL DISEASE (4) HLD (hyperlipidemia) Code(s): E78.5 - HYPERLIPIDEMIA, UNSPECIFIED Qualifiers: Hyperlipidemia type: pure hypercholesterolemia Qualified Code(s): E78.00 - Pure hypercholesterolemia, unspecified; E78.00 - Pure hypercholesterolemia, unspecified; E78.00 - Pure hypercholesterolemia, unspecified; E78.0 - Pure hypercholesterolemia (5) HTN (hypertension) Code(s): I10 - ESSENTIAL (PRIMARY) HYPERTENSION Qualifiers: Hypertension type: essential hypertension Qualified Code(s): I10 - Essential (primary) hypertension; I10 - Essential (primary) hypertension; I10 - Essential (primary) hypertension (6) S/P AKA (above knee amputation) Code(s): Z89.619 - ACQUIRED ABSENCE OF UNSPECIFIED LEG ABOVE KNEE Qualifiers: Laterality: right Qualified Code(s): Z89.611 - Acquired absence of right leg above knee; Z89.611 - Acquired absence of right leg above knee; Z89.611 - Acquired absence of right leg above knee (7) Amputated toe of left foot Code(s): Z89.422 - ACQUIRED ABSENCE OF OTHER LEFT TOE(S) (8) Atrial fibrillation Code(s): I48.91 - UNSPECIFIED ATRIAL FIBRILLATION Qualifiers: Atrial fibrillation type: persistent Qualified Code(s): I48.1 - Persistent atrial fibrillation; I48.1 - Persistent atrial fibrillation; I48.1 - Persistent atrial fibrillation; I48.1 - Persistent atrial fibrillation (9) Cardiomyopathy Code(s): I42.9 - CARDIOMYOPATHY, UNSPECIFIED Qualifiers: Cardiomyopathy type: unspecified Qualified Code(s): I42.9 - Cardiomyopathy, unspecified; I42.9 - Cardiomyopathy, unspecified; I42.9 - Cardiomyopathy, unspecified; I42.9 - Cardiomyopathy, unspecified (10) Systolic dysfunction, left ventricle Code(s): I51.9 - HEART DISEASE, UNSPECIFIED Assessment/Plan 1. PAD S/P right AKA and left toe amputation, occluded left SFA and AAA (4.6 cm ) s/p angiography ts/p angioplasty and SFA stent 2. Renal artery disease with ESRD on HD 3. HTN/HCVD 4. Persistent AF ([id number] score of 4) 5. History of DVT 6. Severe LV systolic dysfunction/cardiomyopathy 7. Severe tricuspid valve regurgitation with pulmonary hypertension 8. S/P mechanical fall PLAN: 1. Transthoracic echocardiography report was noted. Etiology of LV systolic dysfunction is unknown and possible coronary artery disease may need to be assessed with pharmacological nuclear myocardial perfusion imaging study if feasible otherwise would continue optimize medical therapy 2. Continue with HD 3. Continue Heparin protocol. Eventually he will need to be on Warfarin therapy 4. Continue Carvedilol and up-titrate. Further cardiac medications are to follow pending BP. Discontinue Pletal in view of severe LV systolic dysfunction 6. Continue statin therapy and check lipid panel 7. AAA also needs to be followed as outpatient Further plans are to follow. Ion Landrum MD
[2017-03-17] MEDS: PIPERACILLIN/TAZOB 2.25 GM 50 ML IVPB SCH (20:38)
[2017-03-17] MEDS: HEPARIN INFUSION - 500 ML IVPB SCH (20:39)
[2017-03-17] MEDS: SUCRALFATE 1 GM/10 ML UNIT DOSE CUPS PO SCH (21:23)
[2017-03-17] MEDS: CARVEDILOL 3.125 MG TABLET (FP) PO SCH (21:24)
[2017-03-17] MEDS: ALPRAZolam 0.25 MG TABLET PO SCH (21:24)
[2017-03-17] MEDS: ROSUVASTATIN CA 10 MG TABLET (FP) PO SCH (21:24)
[2017-03-17] MEDS ORDERED: CILOSTAZOL 100 MG TABLET PO SCH (22:00)
[2017-03-17] MEDS: BUDESONIDE/FORMETEROL FUMARATE 80/4.5 mcg INHALER IH SCH (22:25)
[2017-03-17] MEDS: morphine SULFATE 4 MG/ML VIAL IVPUSH PRN (23:44)
[2017-03-18] MEDS: PIPERACILLIN/TAZOB 2.25 GM 50 ML IVPB SCH ×3 (02:42→17:21)
[2017-03-18] MEDS ORDERED: PT OWN MED DRAWER 7, Y5N ONE ×4 (02:47→16:17)
[2017-03-18] MEDS: morphine SULFATE 4 MG/ML VIAL IVPUSH PRN ×4 (03:41→18:47)
[2017-03-18 09:16] LABS: BASOPHIL 0.8 % (0-2.0); EOSINOPHIL 0.9 % (0-4.5); MCH 27.6 pg (25.7-33.7); MCHC 32.1 g/dl (32.0-35.9); MEAN CELL VOLUME 85.9 fl (80-96); MEAN PLT VOLUME 7.6 fl (7.5-11.1); NEUTROPHILS 85.3 % (42.8-82.8); PLATELET COUNT 99 K/MM3 (134-434); RDW 16.3 % (11.9-15.9); WHITE BLOOD COUNT 6.3 K/mm3 (4.0-10.0)
[2017-03-18 09:33] LABS: ALBUMIN 1.8 g/dl (3.4-5.0); CALCIUM 7.7 mg/dL (8.5-10.1)
[2017-03-18 09:44] LABS: ALK PHOS 110 U/L (45-117); ANION GAP 15 (8-16); BILIRUBIN,TOTAL 0.7 mg/dL (0.2-1.0); CO2 21 mmol/L (21-32); GLUCOSE,RANDOM 58 mg/dL (74-106); SGOT/AST 14 U/L (15-37); SGPT/ALT < 6 U/L (12-78); TOT PROT 4.6 g/dl (6.4-8.2)
--- NOTE | 2017-03-18 09:53 | PN ---
Progress Note (short form) - Note Progress Note: Vascular Surgery Pt seen and examined. Left foot is warm. S/P angioplasty with stent. Dopplerable PT pulse. Cont medical managment. Faizan Villa DO
[2017-03-18 09:58] LABS: CREATININE 7.9 mg/dL (0.7-1.3)
--- NOTE | 2017-03-18 12:02 | PN ---
Progress Note (short form) - Note Progress Note: POD #1 - s/p left lower extremity angiogram/plasty and stent placement under MAC. VSS. Pt. resting in bed comfortably. No apparent anesthetic complicaitons noted. Continue current care.
[2017-03-18] MEDS ORDERED: EPOETIN ALFA 3,000 UNIT/1 ML ML IVPUSH ONE (13:00)
--- NOTE | 2017-03-18 15:40 | PN ---
Progress Note, Physician History of Present Illness: POD #1 - s/p left lower extremity angiogram/plasty and stent placement stable no complaints - Current Medication List Current Medications: Active Medications Alprazolam (Xanax -) 0.25 mg PO HS [facility] Last Admin: 03/17/17 21:24 Dose: 0.25 mg Aspirin (Asa -) 81 mg PO DAILY [facility] Budesonide/Formoterol Fumarate (Symbicort 80/4.5mcg -) 2 puff IH BID [facility] Last Admin: 03/17/17 22:25 Dose: 2 puff Carvedilol (Coreg -) 3.125 mg PO BID [facility] Last Admin: 03/17/17 21:24 Dose: 3.125 mg Collagenase (Santyl -) 1 applic TP DAILY [facility] Diphenhydramine HCl (Benadryl -) 25 mg PO Q6H PRN PRN Reason: FOR ITCHING Fentanyl (Sublimaze Injection -) 25 mcg IVPUSH [id number] PRN PRN Reason: PAIN Stop: 03/19/17 14:32 Heparin Sodium (Porcine) (Heparin -) 5,000 unit IVPUSH PRN PRN PRN Reason: Heparin Heparin Sodium (Porcine) (Heparin -) 1,000 unit IVPUSH PRN PRN PRN Reason: Heparin Heparin Sodium/Dextrose (Heparin Infusion -) 500 mls @ 20 mls/hr IVPB TITR [facility] ; 1,000 UNITS/HR PRN Reason: Protocol Last Titration: 03/18/17 10:50 Dose: 1,100 units/hr Piperacillin/Tazobactam/Dextrose (Zosyn 2.25gm Ivpb (Premix)) 50 mls @ 100 mls/ hr IVPB Q8H-IV [facility] PRN Reason: Protocol Last Admin: 03/18/17 02:42 Dose: 100 mls/hr Morphine Sulfate (Morphine Sulfate) 2 mg IVPUSH Q4H PRN PRN Reason: PAIN Last Admin: 03/18/17 14:34 Dose: 2 mg Ranitidine HCl (Zantac Oral Solution -) 150 mg PO DAILY [facility] Rosuvastatin Calcium (Crestor -) 10 mg PO HS [facility] Last Admin: 03/17/17 21:24 Dose: 10 mg Sucralfate (Carafate Oral Suspension -) 0.5 gm PO BID [facility] Last Admin: 03/17/17 21:23 Dose: 0.5 gm - Objective Vital Signs: Vital Signs Temperature 98.6 F 03/18/17 12:20 Pulse Rate 90 03/18/17 15:30 Respiratory Rate 18 03/18/17 15:30 Blood Pressure 121/42 03/18/17 15:30 O2 Sat by Pulse Oximetry (%) 96 03/18/17 09:00 Constitutional: Yes: No Distress, Calm Cardiovascular: Yes: Regular Rate and Rhythm Respiratory: Yes: Regular, CTA Bilaterally Gastrointestinal: Yes: Normal Bowel Sounds, Soft Musculoskeletal: Yes: Other Extremities: Yes: Other Wound/Incision: Yes: Other Neurological: Yes: Alert, Oriented Psychiatric: Yes: Alert Labs: CBC, BMP 03/18/17 08:00 03/18/17 08:54 INR, PTT INR 1.26 (0.82-1.09) H 03/14/17 01:15 Assessment/Plan Problem List - Problems (1) Anemia Code(s): D64.9 - ANEMIA, UNSPECIFIED (2) Critical lower limb ischemia Code(s): I99.8 - OTHER DISORDER OF CIRCULATORY SYSTEM (3) ESRD (end stage renal disease) Code(s): N18.6 - END STAGE RENAL DISEASE (4) HTN (hypertension) Code(s): I10 - ESSENTIAL (PRIMARY) HYPERTENSION (5) Open wnd foot-complicated Code(s): S91.309A - UNSPECIFIED OPEN WOUND, UNSPECIFIED FOOT, INITIAL ENCOUNTER plan ct abx cx result noted plan mri of the foot to r/o osteo
--- NOTE | 2017-03-18 16:04 | PN ---
Progress Note (short form) - Note Progress Note: Subjective: The patient was seen and examined at the bedside in dialysis, he has no complaints today Current Medications Generic Name Dose Route Start Last Admin Trade Name Freq PRN Reason Stop Dose Admin Alprazolam 0.25 mg 03/17/17 22:00 03/17/17 21:24 Xanax - PO 0.25 mg HS [facility] Administration Aspirin 81 mg 03/18/17 10:00 Asa - PO DAILY [facility] Budesonide/Formoterol Fumarate 2 puff 03/17/17 22:00 03/17/17 22:25 Symbicort 80/4.5mcg - IH 2 puff BID [facility] Administration Carvedilol 3.125 mg 03/17/17 22:00 03/17/17 21:24 Coreg - PO 3.125 mg BID [facility] Administration Collagenase 1 applic 03/18/17 11:00 Santyl - TP DAILY [facility] Diphenhydramine HCl 25 mg 03/17/17 13:24 Benadryl - PO Q6H PRN FOR ITCHING Fentanyl 25 mcg 03/17/17 13:24 Sublimaze Injection - IVPUSH 03/19/17 14:32 [id number] PRN PAIN Heparin Sodium (Porcine) 5,000 unit 03/17/17 17:59 Heparin - IVPUSH PRN PRN Heparin Heparin Sodium (Porcine) 1,000 unit 03/17/17 13:00 Heparin - IVPUSH PRN PRN Heparin Heparin Sodium/Dextrose 500 mls @ 20 mls/hr 03/17/17 18:00 03/18/17 10:50 Heparin Infusion - IVPB 1,100 units/hr TITR [facility] Titration Protocol 1,000 UNITS/HR Piperacillin/Tazobactam/Dextrose 50 mls @ 100 mls/hr 03/17/17 15:15 03/18/17 02 :42 Zosyn 2.25gm Ivpb (Premix) IVPB 100 mls/hr Q8H-IV [facility] Administration Protocol Morphine Sulfate 2 mg 03/17/17 23:07 03/18/17 14:34 Morphine Sulfate IVPUSH 2 mg Q4H PRN Administration PAIN Ranitidine HCl 150 mg 03/18/17 10:00 Zantac Oral Solution - PO DAILY [facility] Rosuvastatin Calcium 10 mg 03/17/17 22:00 03/17/17 21:24 Crestor - PO 10 mg HS [facility] Administration Sucralfate 0.5 gm 03/17/17 22:00 03/17/17 21:23 Carafate Oral Suspension - PO 0.5 gm BID [facility] Administration Warfarin Sodium 5 mg 03/18/17 18:00 Coumadin - PO DAILY@1800 [facility] Objective: Vital Signs Period Temp Pulse Resp BP Sys/Coleman Pulse Ox Last 24 Hr 97.4 F-98.6 F 68-97 18-22 96-127/42-73 96-97 Physical Exam: General: NAD, A&Ox3 Lungs: CTA bilaterally Heart: Irregular rate, S1S2 Abd: Soft, non-tender, non-distended. Normoactive bowel sounds Ext: Left foot with dressing, c/d/i. R AKA CBCD WBC 6.3 K/mm3 (4.0-10.0) D 03/18/17 08:00 RBC 2.63 M/mm3 (4.00-5.60) L 03/18/17 08:00 Hgb 7.3 GM/dL (11.7-16.9) L 03/18/17 08:00 Hct 22.6 % (35.4-49) L 03/18/17 08:00 MCV 85.9 fl (80-96) 03/18/17 08:00 MCHC 32.1 g/dl (32.0-35.9) 03/18/17 08:00 RDW 16.3 % (11.9-15.9) H 03/18/17 08:00 Plt Count 99 K/MM3 (134-434) L 03/18/17 08:00 MPV 7.6 fl (7.5-11.1) 03/18/17 08:00 CMP Sodium 137 mmol/L (136-145) 03/18/17 08:54 Potassium 4.7 mmol/L (3.5-5.1) 03/18/17 08:54 Chloride 101 mmol/L (98-107) 03/18/17 08:54 Carbon Dioxide 21 mmol/L (21-32) 03/18/17 08:54 Anion Gap 15 (8-16) 03/18/17 08:54 BUN 56 mg/dL (7-18) H 03/18/17 08:54 Creatinine 7.9 mg/dL (0.7-1.3) H* 03/18/17 08:54 Creat Clearance w eGFR 6.69 (>60) 03/18/17 08:54 Random Glucose 58 mg/dL (74-106) L 03/18/17 08:54 Calcium 7.7 mg/dL (8.5-10.1) L 03/18/17 08:54 Total Bilirubin 0.7 mg/dL (0.2-1.0) D 03/18/17 08:54 AST 14 U/L (15-37) L D 03/18/17 08:54 ALT < 6 U/L (12-78) L 03/18/17 08:54 Alkaline Phosphatase 110 U/L (45-117) 03/18/17 08:54 Total Protein 4.6 g/dl (6.4-8.2) L 03/18/17 08:54 Albumin 1.8 g/dl (3.4-5.0) L 03/18/17 08:54 CARDIAC ENZYMES Creatine Kinase 17 IU/L (39-308) L 03/14/17 01:15 Troponin I 0.03 ng/ml (0.00-0.05) 03/14/17 01:15 Microbiology 03/14/17 01:20 Blood - Peripheral Venous Blood Culture - Preliminary NO GROWTH OBTAINED AFTER 96 HOURS, INCUBATION TO CONTINUE FOR 1 DAYS. 03/14/17 01:15 Blood - Peripheral Venous Blood Culture - Preliminary NO GROWTH OBTAINED AFTER 96 HOURS, INCUBATION TO CONTINUE FOR 1 DAYS. 03/14/17 13:30 Foot - Left Gram Stain - Final 03/14/17 13:30 Foot - Left Wound Culture - Final Serratia Marcescens Raoultella (K) Ornithinolytica Imagin03/14/2017: CT/Abdomen CTA AOR & RLE Runoff: Extensive severe diffuse aortoiliac , femoro-popliteal and intrapoplitea, occluded left SFA and mucus occlusion of flow in a severely diseased the renal artery demonstrates at lease 70-90% stenosis. Occluded left ENMANUEL and two vessel runoff provided by [employer] WIREMAN and PA however degree of disease and stenosis cannot be discerned due to calcification and hardening artifacts. enlarged prostate. Small right sided pleural effusion with severe right lung base atelectic changes vs pnemonic infiltrates. 03/14/2017: US/Duplex arterial legs, limited ultrasound: Extensive artheroscleoric disease with occlusion of the SFA. There is weak, monosphasic flow present within the popliteal and posterior tibial arteries. Assessment: This is a 77 year old male with PMHx of ESRD on HD (,,), HTN, DVT, right AKA 3 months ago, left 2nd digit amputation lower extremity, who presented to the ED for worsening left foot pain. Plan: 1) Left SFA occlusion, left foot gangrene - Imaging as above - S/p aortogram with LLE angiogram 03/17 - S/p LLE angiogram, SFA DCB angioplasty, SFA Stent placement. Retrograde puncture from left popliteal artery - Continue Vanco and Zosyn - Will need MRI per ID to r/o osteo - Pain management - Appreciate ID consult - Appreciate vascular surgery consult Hx of DVT - Continue Heparin gtt, bridge to coumadin (started today) 2) ESRD - Continue HD as scheduled - Renal diet 3) A.fib, chronic - Continue Heparin gtt bridge to coumadin (started Coumadin 5mg po hs today) 4) AAA - F/u outpatient 5) Chronic anemia - Monitor Hgb - Continue to monitor 6) F/E/N: - Monitor electrolytes - Renal diet 7) Prophylaxis: - On Heparin gtt bridge to Coumadin 8) Dispo: - Requires continued inpatient care CODE STATUS: FULL CODE Visit type - Emergency Visit Emergency Visit: Yes ED Registration Date: 03/14/17 Care time: The patient presented to the Emergency Department on the above date and was hospitalized for further evaluation of their emergent condition. - New Patient This patient is new to me today: No - Critical Care Critical Care patient: No
[2017-03-18] MEDS: COLLAGENASE CLOSTRIDIUM HIST. 30 GRAMS TUBE TP SCH (16:14)
--- NOTE | 2017-03-18 16:22 | PN ---
Progress Note (short form) - Note Progress Note: Renal follow up for ESRD on HD Pt seen and examined during dialysis has pain at his bladder no cp, sob, abd pain no N/V/D Vital Signs Temperature 98.6 F 03/18/17 12:20 Pulse Rate 90 03/18/17 15:30 Respiratory Rate 18 03/18/17 15:30 Blood Pressure 121/42 03/18/17 15:30 O2 Sat by Pulse Oximetry (%) 96 03/18/17 09:00 Intake & Output 03/15/17 03/16/17 03/17/17 03/18/17 23:59 23:59 23:59 23:59 Intake Total 702 594 8809 360 Output Total 20 0 Balance 260 569 2734 360 Weight 139 lb 3 oz 138 lb 5 oz 141 lb 1 oz 139 lb 3 oz NAD awake and alert RRR CTA, dec BS at bases Soft NT Abd Right AKA, left foot in dressing CBC, BMP 03/18/17 08:00 03/18/17 08:54 Current Medications Alprazolam (Xanax -) 0.25 mg PO HS [facility] Last Admin: 03/17/17 21:24 Dose: 0.25 mg Aspirin (Asa -) 81 mg PO DAILY [facility] Budesonide/Formoterol Fumarate (Symbicort 80/4.5mcg -) 2 puff IH BID [facility] Last Admin: 03/17/17 22:25 Dose: 2 puff Carvedilol (Coreg -) 3.125 mg PO BID [facility] Last Admin: 03/17/17 21:24 Dose: 3.125 mg Collagenase (Santyl -) 1 applic TP DAILY [facility] Last Admin: 03/18/17 16:14 Dose: 1 applic Diphenhydramine HCl (Benadryl -) 25 mg PO Q6H PRN PRN Reason: FOR ITCHING Fentanyl (Sublimaze Injection -) 25 mcg IVPUSH [id number] PRN PRN Reason: PAIN Stop: 03/19/17 14:32 Heparin Sodium (Porcine) (Heparin -) 5,000 unit IVPUSH PRN PRN PRN Reason: Heparin Heparin Sodium (Porcine) (Heparin -) 1,000 unit IVPUSH PRN PRN PRN Reason: Heparin Heparin Sodium/Dextrose (Heparin Infusion -) 500 mls @ 20 mls/hr IVPB TITR [facility] ; 1,000 UNITS/HR PRN Reason: Protocol Last Titration: 03/18/17 10:50 Dose: 1,100 units/hr Piperacillin/Tazobactam/Dextrose (Zosyn 2.25gm Ivpb (Premix)) 50 mls @ 100 mls/ hr IVPB Q8H-IV [facility] PRN Reason: Protocol Last Admin: 03/18/17 02:42 Dose: 100 mls/hr Morphine Sulfate (Morphine Sulfate) 2 mg IVPUSH Q4H PRN PRN Reason: PAIN Last Admin: 03/18/17 14:34 Dose: 2 mg Ranitidine HCl (Zantac Oral Solution -) 150 mg PO DAILY [facility] Rosuvastatin Calcium (Crestor -) 10 mg PO HS [facility] Last Admin: 03/17/17 21:24 Dose: 10 mg Sucralfate (Carafate Oral Suspension -) 0.5 gm PO BID [facility] Last Admin: 03/17/17 21:23 Dose: 0.5 gm Warfarin Sodium (Coumadin -) 5 mg PO DAILY@1800 [facility] 77 year old gentleman with PMhx of ESRD on HD (TTS), Hypertension, DVT, PVD s/p right AKA and left toe amputation who presented to the ED with complaints of pain in his left foot and admitted fro soft tissue infection of the foot with concern for worsening ischemic disease. #ESRD on HD (TTS) tolerating dialysis well UF goal is 1.5L total tx time is 3 hours #Wound/Ischemia of left LE s/p angioplasty and stenting continue Abx as per ID will give Vanco 1 g post HD #Acute on Chronic Anemia likely due to infection but need to r/o blood loss continue IVANIA with HD transfuse for Hgb less then 8 Thank you Raghu Boogie DO Problem List - Problems (1) Anemia Code(s): D64.9 - ANEMIA, UNSPECIFIED (2) Critical lower limb ischemia Code(s): I99.8 - OTHER DISORDER OF CIRCULATORY SYSTEM (3) ESRD (end stage renal disease) Code(s): N18.6 - END STAGE RENAL DISEASE (4) HTN (hypertension) Code(s): I10 - ESSENTIAL (PRIMARY) HYPERTENSION Qualifiers: Hypertension type: essential hypertension Qualified Code(s): I10 - Essential (primary) hypertension; I10 - Essential (primary) hypertension; I10 - Essential (primary) hypertension (5) Open wnd foot-complicated Code(s): S91.309A - UNSPECIFIED OPEN WOUND, UNSPECIFIED FOOT, INITIAL ENCOUNTER
[2017-03-18] MEDS ORDERED: VANCOMYCIN 1,000 MG in DEXTROSE 5%-WATER - 250 ML IVPB ONE (16:23)
[2017-03-18] MEDS: SUCRALFATE 1 GM/10 ML UNIT DOSE CUPS PO SCH ×2 (17:18→21:38)
[2017-03-18] MEDS: RANITIDINE HCL 150 MG/10 ML UNIT-DOSE PO SCH (17:18)
[2017-03-18] MEDS: CARVEDILOL 3.125 MG TABLET (FP) PO SCH ×2 (17:19→21:40)
[2017-03-18] MEDS: ASPIRIN 81 MG CHEWABLE TABLETS PO SCH (17:19)
[2017-03-18] MEDS: BUDESONIDE/FORMETEROL FUMARATE 80/4.5 mcg INHALER IH SCH ×2 (17:19→23:55)
--- NOTE | 2017-03-18 17:23 | PN ---
Progress Note, Physician History of Present Illness: Denies chest pain or dyspnea. - Current Medication List Current Medications: Active Medications Alprazolam (Xanax -) 0.25 mg PO HS [facility] Last Admin: 03/17/17 21:24 Dose: 0.25 mg Aspirin (Asa -) 81 mg PO DAILY [facility] Budesonide/Formoterol Fumarate (Symbicort 80/4.5mcg -) 2 puff IH BID [facility] Last Admin: 03/17/17 22:25 Dose: 2 puff Carvedilol (Coreg -) 3.125 mg PO BID [facility] Last Admin: 03/17/17 21:24 Dose: 3.125 mg Collagenase (Santyl -) 1 applic TP DAILY [facility] Last Admin: 03/18/17 16:14 Dose: 1 applic Diphenhydramine HCl (Benadryl -) 25 mg PO Q6H PRN PRN Reason: FOR ITCHING Fentanyl (Sublimaze Injection -) 25 mcg IVPUSH [id number] PRN PRN Reason: PAIN Stop: 03/19/17 14:32 Heparin Sodium (Porcine) (Heparin -) 5,000 unit IVPUSH PRN PRN PRN Reason: Heparin Heparin Sodium (Porcine) (Heparin -) 1,000 unit IVPUSH PRN PRN PRN Reason: Heparin Heparin Sodium/Dextrose (Heparin Infusion -) 500 mls @ 20 mls/hr IVPB TITR [facility] ; 1,000 UNITS/HR PRN Reason: Protocol Last Titration: 03/18/17 10:50 Dose: 1,100 units/hr Piperacillin/Tazobactam/Dextrose (Zosyn 2.25gm Ivpb (Premix)) 50 mls @ 100 mls/ hr IVPB Q8H-IV [facility] PRN Reason: Protocol Last Admin: 03/18/17 02:42 Dose: 100 mls/hr Morphine Sulfate (Morphine Sulfate) 2 mg IVPUSH Q4H PRN PRN Reason: PAIN Last Admin: 03/18/17 14:34 Dose: 2 mg Ranitidine HCl (Zantac Oral Solution -) 150 mg PO DAILY [facility] Rosuvastatin Calcium (Crestor -) 10 mg PO HS [facility] Last Admin: 03/17/17 21:24 Dose: 10 mg Sucralfate (Carafate Oral Suspension -) 0.5 gm PO BID [facility] Last Admin: 03/17/17 21:23 Dose: 0.5 gm Warfarin Sodium (Coumadin -) 5 mg PO DAILY@1800 [facility] - Objective Vital Signs: Vital Signs Temperature 98.6 F 03/18/17 12:20 Pulse Rate 90 03/18/17 15:30 Respiratory Rate 18 03/18/17 15:30 Blood Pressure 121/42 03/18/17 15:30 O2 Sat by Pulse Oximetry (%) 96 03/18/17 09:00 Constitutional: Yes: No Distress, Calm Neck: Yes: Supple Cardiovascular: Yes: Pulse Irregular, Murmur (2/6 SM) Respiratory: Yes: Regular, Diminished Gastrointestinal: Yes: Normal Bowel Sounds, Soft Extremities: Yes: Amputation (Right AKA) Edema: No Labs: CBC, BMP 03/18/17 08:00 03/18/17 08:54 INR, PTT INR 1.26 (0.82-1.09) H 03/14/17 01:15 Problem List - Problems (1) Amputated toe of left foot Code(s): Z89.422 - ACQUIRED ABSENCE OF OTHER LEFT TOE(S) (2) Atrial fibrillation Code(s): I48.91 - UNSPECIFIED ATRIAL FIBRILLATION Qualifiers: Atrial fibrillation type: persistent Qualified Code(s): I48.1 - Persistent atrial fibrillation; I48.1 - Persistent atrial fibrillation; I48.1 - Persistent atrial fibrillation; I48.1 - Persistent atrial fibrillation (3) Cardiomyopathy Code(s): I42.9 - CARDIOMYOPATHY, UNSPECIFIED Qualifiers: Cardiomyopathy type: unspecified Qualified Code(s): I42.9 - Cardiomyopathy, unspecified; I42.9 - Cardiomyopathy, unspecified; I42.9 - Cardiomyopathy, unspecified; I42.9 - Cardiomyopathy, unspecified (4) Critical lower limb ischemia Code(s): I99.8 - OTHER DISORDER OF CIRCULATORY SYSTEM (5) ESRD (end stage renal disease) Code(s): N18.6 - END STAGE RENAL DISEASE (6) HLD (hyperlipidemia) Code(s): E78.5 - HYPERLIPIDEMIA, UNSPECIFIED Qualifiers: Hyperlipidemia type: pure hypercholesterolemia Qualified Code(s): E78.00 - Pure hypercholesterolemia, unspecified; E78.00 - Pure hypercholesterolemia, unspecified; E78.00 - Pure hypercholesterolemia, unspecified; E78.0 - Pure hypercholesterolemia (7) HTN (hypertension) Code(s): I10 - ESSENTIAL (PRIMARY) HYPERTENSION Qualifiers: Hypertension type: essential hypertension Qualified Code(s): I10 - Essential (primary) hypertension; I10 - Essential (primary) hypertension; I10 - Essential (primary) hypertension (8) S/P AKA (above knee amputation) Code(s): Z89.619 - ACQUIRED ABSENCE OF UNSPECIFIED LEG ABOVE KNEE Qualifiers: Laterality: right Qualified Code(s): Z89.611 - Acquired absence of right leg above knee; Z89.611 - Acquired absence of right leg above knee; Z89.611 - Acquired absence of right leg above knee (9) Systolic dysfunction, left ventricle Code(s): I51.9 - HEART DISEASE, UNSPECIFIED (10) Anticoagulant long-term use Code(s): Z79.01 - USP (CURRENT) USE OF ANTICOAGULANTS Assessment/Plan Echocardiography reveals severely reduced LV systolic function, severe TR, moderate pulmonary HTN, mild AR, severely dilated LA and RA 1. PAD S/P right AKA and left toe amputation, occluded left SFA and AAA (4.6 cm ) s/p angiography s/p angioplasty and SFA stent 2. ESRD on HD 3. HTN/HCVD 4. Persistent AF ([id number] score of 4) 5. History of DVT 6. Severe LV systolic dysfunction/cardiomyopathy 7. Severe tricuspid valve regurgitation with pulmonary hypertension 8. S/P mechanical fall with left orbit echymoses 9. Anemia due to CKD and thrombocytopenia PLAN: 1. Transthoracic echocardiography report was noted. Etiology of LV systolic dysfunction is unknown and possible coronary artery disease may need to be assessed with pharmacological nuclear myocardial perfusion imaging study if feasible otherwise would continue optimize medical therapy 2. Continue with HD per HD 3. Continue Heparin protocol->Coumadin per INR, d/c ASA once INR therapeutic 4. Continue Carvedilol 3.125 bid and uptitrate, add Diovan 40 qd and uptitrate as tolerated. Pletal discontinued in view of severe LV systolic dysfunction 6. Continue Crestor 10 qd and check lipid panel 7. AAA also needs to be followed as outpatient 8. GI prophylaxis
[2017-03-18] MEDS: VALSARTAN 40 MG TABLET (FP) PO SCH (18:25)
[2017-03-18] MEDS: HEPARIN INFUSION - 500 ML IVPB SCH (18:25)
[2017-03-18] MEDS: WARFARIN NA 5 MG TABLET (UD) PO SCH (18:25)
[2017-03-18] MEDS: ROSUVASTATIN CA 10 MG TABLET (FP) PO SCH (21:40)
[2017-03-18] MEDS: ALPRAZolam 0.25 MG TABLET PO SCH (21:40)
[2017-03-19] MEDS: PIPERACILLIN/TAZOB 2.25 GM 50 ML IVPB SCH ×3 (02:51→17:15)
[2017-03-19] MEDS ORDERED: PT OWN MED DRAWER 7, Y5N ONE ×2 (05:55→09:33)
[2017-03-19 09:12] LABS: INR 1.42 (0.82-1.09)
[2017-03-19 09:16] LABS: ALBUMIN 1.7 g/dl (3.4-5.0); ANION GAP 12 (8-16); BILIRUBIN,TOTAL 0.6 mg/dL (0.2-1.0); CALCIUM 7.4 mg/dL (8.5-10.1); CO2 26 mmol/L (21-32); CREATININE 5.8 mg/dL (0.7-1.3); GLUCOSE,RANDOM 73 mg/dL (74-106); SGOT/AST 14 U/L (15-37); SGPT/ALT < 6 U/L (12-78); TOT PROT 4.4 g/dl (6.4-8.2)
[2017-03-19 09:17] LABS: ALK PHOS 102 U/L (45-117)
[2017-03-19] MEDS: COLLAGENASE CLOSTRIDIUM HIST. 30 GRAMS TUBE TP SCH (09:40)
[2017-03-19] MEDS: BUDESONIDE/FORMETEROL FUMARATE 80/4.5 mcg INHALER IH SCH ×2 (09:40→21:31)
[2017-03-19] MEDS: VALSARTAN 40 MG TABLET (FP) PO SCH (09:41)
[2017-03-19] MEDS: SUCRALFATE 1 GM/10 ML UNIT DOSE CUPS PO SCH ×2 (09:41→21:29)
[2017-03-19] MEDS: RANITIDINE HCL 150 MG/10 ML UNIT-DOSE PO SCH (09:41)
[2017-03-19] MEDS: CARVEDILOL 3.125 MG TABLET (FP) PO SCH ×2 (09:41→21:29)
[2017-03-19] MEDS: ASPIRIN 81 MG CHEWABLE TABLETS PO SCH (09:41)
--- NOTE | 2017-03-19 10:05 | PN ---
Progress Note (short form) - Note Progress Note: Renal follow up for ESRD on HD Pt seen and examined at the bedside complains of puritis on his back no sob, chest pain, fever, chills Vital Signs Temperature 97.8 F 03/19/17 07:55 Pulse Rate 80 03/19/17 07:55 Respiratory Rate 18 03/19/17 07:55 Blood Pressure 103/57 03/19/17 07:55 O2 Sat by Pulse Oximetry (%) 95 03/19/17 08:15 Intake & Output 03/16/17 03/17/17 03/18/17 03/19/17 23:59 23:59 23:59 23:59 Intake Total 546 1252 1130 Output Total 20 0 Balance 526 1252 1130 Weight 138 lb 5 oz 141 lb 1 oz 139 lb 3 oz 137 lb 4 oz NAD awake and alert RRR CTA, dec BS at bases Soft NT Abd Right AKA, left foot in dressing CBC, BMP 03/19/17 08:00 03/19/17 08:00 Laboratory Tests 03/19/17 08:00 Calcium 7.4 L Albumin 1.7 L Current Medications Alprazolam (Xanax -) 0.25 mg PO HS [facility] Last Admin: 03/18/17 21:40 Dose: 0.25 mg Aspirin (Asa -) 81 mg PO DAILY [facility] Last Admin: 03/19/17 09:41 Dose: 81 mg Budesonide/Formoterol Fumarate (Symbicort 80/4.5mcg -) 2 puff IH BID [facility] Last Admin: 03/19/17 09:40 Dose: 2 puff Carvedilol (Coreg -) 3.125 mg PO BID [facility] Last Admin: 03/19/17 09:41 Dose: 3.125 mg Collagenase (Santyl -) 1 applic TP DAILY [facility] Last Admin: 03/19/17 09:40 Dose: 1 applic Diphenhydramine HCl (Benadryl -) 25 mg PO Q6H PRN PRN Reason: FOR ITCHING Fentanyl (Sublimaze Injection -) 25 mcg IVPUSH [id number] PRN PRN Reason: PAIN Stop: 03/19/17 14:32 Heparin Sodium (Porcine) (Heparin -) 5,000 unit IVPUSH PRN PRN PRN Reason: Heparin Heparin Sodium (Porcine) (Heparin -) 1,000 unit IVPUSH PRN PRN PRN Reason: Heparin Last Admin: 03/18/17 18:47 Dose: 1,000 unit Heparin Sodium/Dextrose (Heparin Infusion -) 500 mls @ 20 mls/hr IVPB TITR [facility] ; 1,000 UNITS/HR PRN Reason: Protocol Last Admin: 03/18/17 18:25 Dose: 24 mls/hr Piperacillin/Tazobactam/Dextrose (Zosyn 2.25gm Ivpb (Premix)) 50 mls @ 100 mls/ hr IVPB Q8H-IV [facility] PRN Reason: Protocol Last Admin: 03/19/17 09:41 Dose: 100 mls/hr Morphine Sulfate (Morphine Sulfate) 2 mg IVPUSH Q4H PRN PRN Reason: PAIN Last Admin: 03/18/17 18:47 Dose: 2 mg Ranitidine HCl (Zantac Oral Solution -) 150 mg PO DAILY [facility] Last Admin: 03/19/17 09:41 Dose: 150 mg Rosuvastatin Calcium (Crestor -) 10 mg PO HS [facility] Last Admin: 03/18/17 21:40 Dose: 10 mg Sucralfate (Carafate Oral Suspension -) 0.5 gm PO BID [facility] Last Admin: 03/19/17 09:41 Dose: 0.5 gm Valsartan (Diovan -) 40 mg PO DAILY [facility] Last Admin: 03/19/17 09:41 Dose: 40 mg Warfarin Sodium (Coumadin -) 5 mg PO DAILY@1800 [facility] Last Admin: 03/18/17 18:25 Dose: 5 mg 77 year old gentleman with PMhx of ESRD on HD (TTS), Hypertension, DVT, PVD s/p right AKA and left toe amputation who presented to the ED with complaints of pain in his left foot and admitted fro soft tissue infection of the foot with concern for worsening ischemic disease. #ESRD on HD s/p dialysis yesterdya no acut indication for LOG GETTER today Renal diet #Wound/Ischemia of left LE s/p angioplasty and stenting continue Abx as per ID s/p vanco post Hd #Acute on Chronic Anemia likely due to infection but need to r/o blood loss continue IVANIA with HD transfuse for Hgb less then 8 #Puritis continue Benadryl Thank you Raghu Boogie DO Problem List - Problems (1) Anemia Code(s): D64.9 - ANEMIA, UNSPECIFIED (2) Critical lower limb ischemia Code(s): I99.8 - OTHER DISORDER OF CIRCULATORY SYSTEM (3) ESRD (end stage renal disease) Code(s): N18.6 - END STAGE RENAL DISEASE (4) HTN (hypertension) Code(s): I10 - ESSENTIAL (PRIMARY) HYPERTENSION Qualifiers: Hypertension type: essential hypertension Qualified Code(s): I10 - Essential (primary) hypertension; I10 - Essential (primary) hypertension; I10 - Essential (primary) hypertension (5) Open wnd foot-complicated Code(s): S91.309A - UNSPECIFIED OPEN WOUND, UNSPECIFIED FOOT, INITIAL ENCOUNTER
--- NOTE | 2017-03-19 10:33 | PN ---
Progress Note, Physician History of Present Illness: patient stable no complaints dressing wet - Current Medication List Current Medications: Active Medications Alprazolam (Xanax -) 0.25 mg PO HS [facility] Last Admin: 03/18/17 21:40 Dose: 0.25 mg Aspirin (Asa -) 81 mg PO DAILY [facility] Last Admin: 03/19/17 09:41 Dose: 81 mg Budesonide/Formoterol Fumarate (Symbicort 80/4.5mcg -) 2 puff IH BID [facility] Last Admin: 03/19/17 09:40 Dose: 2 puff Carvedilol (Coreg -) 3.125 mg PO BID [facility] Last Admin: 03/19/17 09:41 Dose: 3.125 mg Collagenase (Santyl -) 1 applic TP DAILY [facility] Last Admin: 03/19/17 09:40 Dose: 1 applic Diphenhydramine HCl (Benadryl -) 25 mg PO Q6H PRN PRN Reason: FOR ITCHING Fentanyl (Sublimaze Injection -) 25 mcg IVPUSH [id number] PRN PRN Reason: PAIN Stop: 03/19/17 14:32 Heparin Sodium (Porcine) (Heparin -) 5,000 unit IVPUSH PRN PRN PRN Reason: Heparin Heparin Sodium (Porcine) (Heparin -) 1,000 unit IVPUSH PRN PRN PRN Reason: Heparin Last Admin: 03/18/17 18:47 Dose: 1,000 unit Heparin Sodium/Dextrose (Heparin Infusion -) 500 mls @ 20 mls/hr IVPB TITR [facility] ; 1,000 UNITS/HR PRN Reason: Protocol Last Admin: 03/18/17 18:25 Dose: 24 mls/hr Piperacillin/Tazobactam/Dextrose (Zosyn 2.25gm Ivpb (Premix)) 50 mls @ 100 mls/ hr IVPB Q8H-IV [facility] PRN Reason: Protocol Last Admin: 03/19/17 09:41 Dose: 100 mls/hr Morphine Sulfate (Morphine Sulfate) 2 mg IVPUSH Q4H PRN PRN Reason: PAIN Last Admin: 03/18/17 18:47 Dose: 2 mg Ranitidine HCl (Zantac Oral Solution -) 150 mg PO DAILY [facility] Last Admin: 03/19/17 09:41 Dose: 150 mg Rosuvastatin Calcium (Crestor -) 10 mg PO HS [facility] Last Admin: 03/18/17 21:40 Dose: 10 mg Sucralfate (Carafate Oral Suspension -) 0.5 gm PO BID [facility] Last Admin: 03/19/17 09:41 Dose: 0.5 gm Valsartan (Diovan -) 40 mg PO DAILY [facility] Last Admin: 03/19/17 09:41 Dose: 40 mg Warfarin Sodium (Coumadin -) 5 mg PO DAILY@1800 [facility] Last Admin: 03/18/17 18:25 Dose: 5 mg - Objective Vital Signs: Vital Signs Temperature 97.8 F 03/19/17 07:55 Pulse Rate 80 03/19/17 07:55 Respiratory Rate 18 03/19/17 07:55 Blood Pressure 103/57 03/19/17 07:55 O2 Sat by Pulse Oximetry (%) 95 03/19/17 08:15 Constitutional: Yes: No Distress, Calm Cardiovascular: Yes: Regular Rate and Rhythm Respiratory: Yes: Regular, CTA Bilaterally Gastrointestinal: Yes: Normal Bowel Sounds, Soft Musculoskeletal: Yes: Other Extremities: Yes: Other (left ext dressing wet,minimal erythema and swellng) Edema: LLE: 1+ Wound/Incision: Yes: Draining Neurological: Yes: Alert Psychiatric: Yes: Alert Labs: CBC, BMP 03/19/17 08:00 03/19/17 08:00 INR, PTT INR 1.42 (0.82-1.09) H 03/19/17 08:00 Assessment/Plan Problem List - Problems (1) Anemia Code(s): D64.9 - ANEMIA, UNSPECIFIED (2) Critical lower limb ischemia Code(s): I99.8 - OTHER DISORDER OF CIRCULATORY SYSTEM (3) ESRD (end stage renal disease) Code(s): N18.6 - END STAGE RENAL DISEASE (4) HTN (hypertension) Code(s): I10 - ESSENTIAL (PRIMARY) HYPERTENSION (5) Open wnd foot-complicated Code(s): S91.309A - UNSPECIFIED OPEN WOUND, UNSPECIFIED FOOT, INITIAL ENCOUNTER plan ct abx cx result noted wound care mri of the leg
[2017-03-19 11:02] LABS: EOSINOPHIL 1.6 % (0-4.5); MCH 27.7 pg (25.7-33.7); MCHC 32.8 g/dl (32.0-35.9); MEAN CELL VOLUME 84.6 fl (80-96); MEAN PLT VOLUME 7.5 fl (7.5-11.1); NEUTROPHILS 78.5 % (42.8-82.8); PLATELET COUNT 94 K/MM3 (134-434); RDW 15.7 % (11.9-15.9); WHITE BLOOD COUNT 5.5 K/mm3 (4.0-10.0)
[2017-03-19] MEDS ORDERED: POLYETHYLENE GLYCOL 3350 119 GM BTL PO ONE (11:26)
[2017-03-19] MEDS: morphine SULFATE 4 MG/ML VIAL IVPUSH PRN ×2 (12:08→20:49)
--- NOTE | 2017-03-19 14:29 | PN ---
Progress Note, Physician Chief Complaint: Not in distress S/P SFA angioplasty and stent History of Present Illness: Patient was seen and examined. Awake. Chart was reviewed Denies chest pain or SOB - Current Medication List Current Medications: Active Medications Alprazolam (Xanax -) 0.25 mg PO HS [facility] Last Admin: 03/18/17 21:40 Dose: 0.25 mg Aspirin (Asa -) 81 mg PO DAILY [facility] Last Admin: 03/19/17 09:41 Dose: 81 mg Budesonide/Formoterol Fumarate (Symbicort 80/4.5mcg -) 2 puff IH BID [facility] Last Admin: 03/19/17 09:40 Dose: 2 puff Carvedilol (Coreg -) 3.125 mg PO BID [facility] Last Admin: 03/19/17 09:41 Dose: 3.125 mg Collagenase (Santyl -) 1 applic TP DAILY [facility] Last Admin: 03/19/17 09:40 Dose: 1 applic Diphenhydramine HCl (Benadryl -) 25 mg PO Q6H PRN PRN Reason: FOR ITCHING Heparin Sodium (Porcine) (Heparin -) 5,000 unit IVPUSH PRN PRN PRN Reason: Heparin Heparin Sodium (Porcine) (Heparin -) 1,000 unit IVPUSH PRN PRN PRN Reason: Heparin Last Admin: 03/18/17 18:47 Dose: 1,000 unit Heparin Sodium/Dextrose (Heparin Infusion -) 500 mls @ 20 mls/hr IVPB TITR [facility] ; 1,000 UNITS/HR PRN Reason: Protocol Last Admin: 03/18/17 18:25 Dose: 24 mls/hr Piperacillin/Tazobactam/Dextrose (Zosyn 2.25gm Ivpb (Premix)) 50 mls @ 100 mls/ hr IVPB Q8H-IV [facility] PRN Reason: Protocol Last Admin: 03/19/17 09:41 Dose: 100 mls/hr Morphine Sulfate (Morphine Sulfate) 4 mg IVPUSH Q4H PRN PRN Reason: PAIN Ranitidine HCl (Zantac Oral Solution -) 150 mg PO DAILY [facility] Last Admin: 03/19/17 09:41 Dose: 150 mg Rosuvastatin Calcium (Crestor -) 10 mg PO HS [facility] Last Admin: 03/18/17 21:40 Dose: 10 mg Sucralfate (Carafate Oral Suspension -) 0.5 gm PO BID [facility] Last Admin: 03/19/17 09:41 Dose: 0.5 gm Valsartan (Diovan -) 40 mg PO DAILY [facility] Last Admin: 03/19/17 09:41 Dose: 40 mg Warfarin Sodium (Coumadin -) 5 mg PO DAILY@1800 [facility] Last Admin: 03/18/17 18:25 Dose: 5 mg - Objective Vital Signs: Vital Signs Temperature 97.8 F 03/19/17 07:55 Pulse Rate 80 03/19/17 07:55 Respiratory Rate 18 03/19/17 07:55 Blood Pressure 103/57 03/19/17 07:55 O2 Sat by Pulse Oximetry (%) 95 03/19/17 08:15 Neck: Yes: Supple Cardiovascular: Yes: Regular Rate and Rhythm, S1, S2 Respiratory: Yes: CTA Bilaterally Gastrointestinal: Yes: Normal Bowel Sounds, Soft. No: Tenderness Extremities: Yes: Amputation Edema: No Labs: CBC, BMP 03/19/17 10:15 03/19/17 08:00 INR, PTT INR 1.42 (0.82-1.09) H 03/19/17 08:00 Problem List - Problems (1) Anemia Code(s): D64.9 - ANEMIA, UNSPECIFIED (2) Critical lower limb ischemia Code(s): I99.8 - OTHER DISORDER OF CIRCULATORY SYSTEM (3) ESRD (end stage renal disease) Code(s): N18.6 - END STAGE RENAL DISEASE (4) HLD (hyperlipidemia) Code(s): E78.5 - HYPERLIPIDEMIA, UNSPECIFIED Qualifiers: Hyperlipidemia type: pure hypercholesterolemia Qualified Code(s): E78.00 - Pure hypercholesterolemia, unspecified; E78.00 - Pure hypercholesterolemia, unspecified; E78.00 - Pure hypercholesterolemia, unspecified; E78.0 - Pure hypercholesterolemia (5) HTN (hypertension) Code(s): I10 - ESSENTIAL (PRIMARY) HYPERTENSION Qualifiers: Hypertension type: essential hypertension Qualified Code(s): I10 - Essential (primary) hypertension; I10 - Essential (primary) hypertension; I10 - Essential (primary) hypertension (6) S/P AKA (above knee amputation) Code(s): Z89.619 - ACQUIRED ABSENCE OF UNSPECIFIED LEG ABOVE KNEE Qualifiers: Laterality: right Qualified Code(s): Z89.611 - Acquired absence of right leg above knee; Z89.611 - Acquired absence of right leg above knee; Z89.611 - Acquired absence of right leg above knee (7) Amputated toe of left foot Code(s): Z89.422 - ACQUIRED ABSENCE OF OTHER LEFT TOE(S) (8) Atrial fibrillation Code(s): I48.91 - UNSPECIFIED ATRIAL FIBRILLATION Qualifiers: Atrial fibrillation type: persistent Qualified Code(s): I48.1 - Persistent atrial fibrillation; I48.1 - Persistent atrial fibrillation; I48.1 - Persistent atrial fibrillation; I48.1 - Persistent atrial fibrillation (9) Cardiomyopathy Code(s): I42.9 - CARDIOMYOPATHY, UNSPECIFIED Qualifiers: Cardiomyopathy type: unspecified Qualified Code(s): I42.9 - Cardiomyopathy, unspecified; I42.9 - Cardiomyopathy, unspecified; I42.9 - Cardiomyopathy, unspecified; I42.9 - Cardiomyopathy, unspecified (10) Systolic dysfunction, left ventricle Code(s): I51.9 - HEART DISEASE, UNSPECIFIED Assessment/Plan 1. PAD S/P right AKA and left toe amputation, occluded left SFA and AAA (4.6 cm ) s/p angiography ts/p angioplasty and SFA stent 2. Renal artery disease with ESRD on HD 3. HTN/HCVD 4. Persistent AF ([id number] score of 4) 5. History of DVT 6. Severe LV systolic dysfunction/cardiomyopathy 7. Severe tricuspid valve regurgitation with pulmonary hypertension 8. S/P mechanical fall PLAN: 1. Transthoracic echocardiography report was noted. Etiology of LV systolic dysfunction is unknown and possible coronary artery disease may need to be assessed with pharmacological nuclear myocardial perfusion imaging study if feasible otherwise continue optimize medical therapy 2. Continue with HD 3. Continue Heparin protocol. Eventually he will need to be on Warfarin therapy 4. Continue Carvedilol and up-titrate. 6. Continue statin therapy and check lipid panel 7. AAA also needs to be followed as outpatient Further plans are to follow. Ion Landrum MD
[2017-03-19] MEDS ORDERED: ALPRAZolam 0.25 MG TABLET PO ONE (14:32)
--- NOTE | 2017-03-19 15:53 | PN ---
Physical Exam: SUBJECTIVE: Patient seen and examined at the bedside. S/p fall a few days ago OBJECTIVE: Restless, anxious today, given Xanax 0.25 x 1 Vital Signs Period Temp Pulse Resp BP Sys/Coleman Pulse Ox Last 24 Hr 97.8 F-98.5 F 74-96 18-18 100-119/57-64 95-96 GENERAL: Awake, alert, and fully oriented, in no acute distress. HEAD: Normal with no signs of trauma. EYES: Pupils equal, round and reactive to light, extraocular movements intact, sclera anicteric, conjunctiva clear. No lid lag. EARS, NOSE, THROAT: Ears normal, nares patent, oropharynx clear without exudates. Moist mucous membranes. NECK: Normal range of motion, supple without lymphadenopathy, JVD, or masses. LUNGS: Breath sounds diminished bilaterall, no wheezing HEART: irregular heart rate, hx of afib ABDOMEN: Soft, nontender, not distended, normoactive bowel sounds, no guarding, no rebound, no masses. No hepatomegaly or splenomegaly. UPPER EXTREMITIES: AV fistula RUE, thrill/bruit present. AV fistula LUE not working LOWER EXTREMITIES: + 3 lower ext pitting peripheral edema. Right AKA NEUROLOGICAL: Normal speech. Gait not observed. PSYCHIATRIC: Cooperative. Good eye contact. Appropriate mood and affect. SKIN: Warm, dry, normal turgor, no rashes. normal capillary refill. Patient presented with multiple wounds: (1) Stage II ulcer to buttocks, 2x2 cm circular ulcer on left lateral malleolus (2) gangrenous/necrotic dorsal third digit. (3) Amputation site between 2nd and 3rd space appears yellow, with slough, open wound. Wound site is malodorous, dressing stained and intact Laboratory Results - last 24 hr 03/18/17 03/19/17 03/19/17 17:30 08:00 08:00 WBC Cancelled Corrected WBC (auto) Cancelled RBC Cancelled Hgb Cancelled Hct Cancelled MCV Cancelled MCH Cancelled MCHC Cancelled RDW Cancelled Plt Count Cancelled MPV Cancelled Neutrophils % Lymphocytes % Monocytes % Eosinophils % Basophils % Differential Comment Cancelled Platelet Estimate Cancelled Platelet Comment Cancelled RBC Morphology Cancelled PT with INR INR PTT (Actin FS) 44.8 H 55.0 H Sodium Potassium Chloride Carbon Dioxide Anion Gap BUN Creatinine Creat Clearance w eGFR Random Glucose Calcium Total Bilirubin AST ALT Alkaline Phosphatase Total Protein Albumin 03/19/17 03/19/17 03/19/17 08:00 08:00 10:15 WBC 5.5 Corrected WBC (auto) RBC 2.92 L Hgb 8.1 L D Hct 24.7 L MCV 84.6 MCH 27.7 MCHC 32.8 RDW 15.7 Plt Count 94 L MPV 7.5 Neutrophils % 78.5 Lymphocytes % 7.0 L D Monocytes % 11.9 H Eosinophils % 1.6 Basophils % 1.0 Differential Comment Platelet Estimate Platelet Comment RBC Morphology PT with INR 16.00 H INR 1.42 H PTT (Actin FS) Sodium 141 Potassium 3.6 D Chloride 103 Carbon Dioxide 26 D Anion Gap 12 BUN 36 H D Creatinine 5.8 H D Creat Clearance w eGFR 9.55 Random Glucose 73 L D Calcium 7.4 L Total Bilirubin 0.6 AST 14 L ALT < 6 L Alkaline Phosphatase 102 Total Protein 4.4 L Albumin 1.7 L Active Medications Generic Name Dose Route Start Last Admin Trade Name hRettq PRN Reason Stop Dose Admin Alprazolam 0.25 mg 03/17/17 22:00 03/18/17 21:40 Xanax - PO 0.25 mg HS [facility] Administration Aspirin 81 mg 03/18/17 10:00 03/19/17 09:41 Asa - PO 81 mg DAILY [facility] Administration Budesonide/Formoterol Fumarate 2 puff 03/17/17 22:00 03/19/17 09:40 Symbicort 80/4.5mcg - IH 2 puff BID [facility] Administration Carvedilol 3.125 mg 03/17/17 22:00 03/19/17 09:41 Coreg - PO 3.125 mg BID [facility] Administration Collagenase 1 applic 03/18/17 11:00 03/19/17 09:40 Santyl - TP 1 applic DAILY [facility] Administration Diphenhydramine HCl 25 mg 03/17/17 13:24 Benadryl - PO Q6H PRN FOR ITCHING Heparin Sodium (Porcine) 5,000 unit 03/17/17 17:59 Heparin - IVPUSH PRN PRN Heparin Heparin Sodium (Porcine) 1,000 unit 03/17/17 13:00 03/18/17 18:47 Heparin - IVPUSH 1,000 unit PRN PRN Administration Heparin Heparin Sodium/Dextrose 500 mls @ 20 mls/hr 03/17/17 18:00 03/18/17 18:25 Heparin Infusion - IVPB 24 mls/hr TITR [facility] Administration Protocol 1,000 UNITS/HR Piperacillin/Tazobactam/Dextrose 50 mls @ 100 mls/hr 03/17/17 15:15 03/19/17 09 :41 Zosyn 2.25gm Ivpb (Premix) IVPB 100 mls/hr Q8H-IV [facility] Administration Protocol Morphine Sulfate 4 mg 03/19/17 14:25 Morphine Sulfate IVPUSH Q4H PRN PAIN Ranitidine HCl 150 mg 03/18/17 10:00 03/19/17 09:41 Zantac Oral Solution - PO 150 mg DAILY [facility] Administration Rosuvastatin Calcium 10 mg 03/17/17 22:00 03/18/17 21:40 Crestor - PO 10 mg HS [facility] Administration Sucralfate 0.5 gm 03/17/17 22:00 03/19/17 09:41 Carafate Oral Suspension - PO 0.5 gm BID [facility] Administration Valsartan 40 mg 03/18/17 17:30 03/19/17 09:41 Diovan - PO 40 mg DAILY [facility] Administration Warfarin Sodium 5 mg 03/18/17 18:00 03/18/17 18:25 Coumadin - PO 5 mg DAILY@1800 [facility] Administration ASSESSMENT/PLAN: Patient is a 77 year old male with a significant past medical history of ESRD HD (T,Th,Sa), atrial fib, hypertension, DVT, right AKA, s/p left 2nd digit amputation lower extremity. He presented to the ED on 03/14/2017 for critical ischemia of left lower extremity. Patient is Estonian speaking only and family reports having increased swelling to his left lower extremity. Pt comes with right AKA and a left middle toe amputation that was performed 3 weeks ago in [facility], where pt has been living for the past several years. Currently patient appears to have an infection of the left foot with gangrene of 2nd toe and +3 edema of the entire lower leg, and a lateral small circular ulceration. Pt comes with documentation from [facility] reflecting that he had patent DP and PT vessels in September of this year. Previous arterial study of left extremity reveals permeable arterial flow throughout extending from femoral to posterior tibial pulse. Imagin03/14/2017: CT/Abdomen CTA AOR & RLE Runoff: Extensive severe diffuse aortoiliac , femoro-popliteal and intrapoplitea, occluded left SFA and mucus occlusion of flow in a severely diseased the renal artery demonstrates at lease 70-90% stenosis. Occluded left ENMANUEL and two vessel runoff provided by [employer] and PA however degree of disease and stenosis cannot be discerned due to calcification and hardening artifacts. enlarged prostate. Small right sided pleural effusion with severe right lung base atelectic changes vs pnemonic infiltrates. 03/14/2017: US/Duplex arterial legs, limited ultrasound: Extensive artheroscleoric disease with occlusion of the SFA. There is weak, monosphasic flow present within the popliteal and posterior tibial arteries. Vascular/ID: Wound with Ischemic Left foot, acute s/p left lower extremity angiogram/angioplasty and stent placement on 03/16 On Vanco and Zosyn as per ID, renally dosed AAA found on CT scan, will need outpatient monitoring On Heparin drip bridge to Coumadin MRI ordered to r/o osteo Renal: ESRD, HD (on TThS) Will need new facility for outpatient HD set up On Renvela, Renal Diet Cardiology: Atrial Fibrillation, chronic On Heparin drip, transition to Warfarin once INR is between 2-3 On Coreq BID, Diovan 40mg Cardiology following Hematology: Anemia, likely chronic Continue to monitor, tranfuse if hmg <8 CBC in a.m. F.E.N. Fluids: 1.2 liter fluid restriction, tolerating PO Electrolytes: monitor Nutrition: renal diet Prophylaxis: GI: deferred DVT: on Heparin drip bridge to Coumadin Disposition: Requires inpatient hospitalization. Full code. Visit type - Emergency Visit Emergency Visit: Yes ED Registration Date: 03/14/17 Care time: The patient presented to the Emergency Department on the above date and was hospitalized for further evaluation of their emergent condition. - New Patient This patient is new to me today: No - Critical Care Critical Care patient: No - Discharge Referral Referred to [facility] Med P.C.: No
[2017-03-19] MEDS: HEPARIN INFUSION - 500 ML IVPB SCH (18:00)
[2017-03-19] MEDS: WARFARIN NA 5 MG TABLET (UD) PO SCH (18:13)
[2017-03-19] MEDS: ROSUVASTATIN CA 10 MG TABLET (FP) PO SCH (21:29)
[2017-03-19] MEDS: ALPRAZolam 0.25 MG TABLET PO SCH (21:29)
[2017-03-20] MEDS: PIPERACILLIN/TAZOB 2.25 GM 50 ML IVPB SCH ×3 (02:12→17:22)
[2017-03-20] MEDS: morphine SULFATE 4 MG/ML VIAL IVPUSH PRN (02:43)
--- NOTE | 2017-03-20 10:31 | PN ---
Physical Exam: SUBJECTIVE: Patient seen and examined, was more agitated today. Patient states his pain on his foot is worse and that is why he is agitated. OBJECTIVE: Patient verbalizing pain, states is left leg is painful and the morphine is not helping > pain meds changed to diludid 0.5mg q4 prn Xanax scheduled for increased agitation/restlessness/anxiety Heparing gtt discontinued/INR therapeutic, continue Coumadin Vital Signs Period Temp Pulse Resp BP Sys/Coleman Pulse Ox Last 24 Hr 97.2 F-98.3 F 72-85 18-22 96-110/50-62 96 GENERAL: Awake, alert, and fully oriented, iranian speaking HEAD: Normal with no signs of trauma. EYES: Pupils equal, round and reactive to light, extraocular movements intact, sclera anicteric, conjunctiva clear. No lid lag. EARS, NOSE, THROAT: Ears normal, nares patent, oropharynx clear without exudates. Moist mucous membranes. NECK: Normal range of motion, supple without lymphadenopathy, JVD, or masses. LUNGS: Breath sounds diminished bilaterall, no wheezing HEART: irregular heart rate, hx of afib ABDOMEN: Soft, nontender, not distended, normoactive bowel sounds, no guarding, no rebound, no masses. No hepatomegaly or splenomegaly. UPPER EXTREMITIES: AV fistula RUE, thrill/bruit present. AV fistula LUE not working LOWER EXTREMITIES: + 3 lower ext pitting peripheral edema. Right AKA NEUROLOGICAL: Normal speech. Gait not observed. PSYCHIATRIC: Cooperative. Good eye contact. Appropriate mood and affect. SKIN: Warm, dry, normal turgor, no rashes. normal capillary refill. Patient presented with multiple wounds: (1) Stage II ulcer to buttocks, 2x2 cm circular ulcer on left lateral malleolus (2) gangrenous/necrotic dorsal third digit. (3) Amputation site between 2nd and 3rd space appears yellow, with slough, open wound. Wound site is malodorous, dressing stained and intact Active Medications Generic Name Dose Route Start Last Admin Trade Name Freq PRN Reason Stop Dose Admin Alprazolam 0.5 mg 03/20/17 10:30 Xanax - PO Q8H [facility] Aspirin 81 mg 03/18/17 10:00 03/19/17 09:41 Asa - PO 81 mg DAILY [facility] Administration Budesonide/Formoterol Fumarate 2 puff 11/02/17 22:00 03/19/17 21:31 Symbicort 80/4.5mcg - IH 2 puff BID [facility] Administration Carvedilol 3.125 mg 03/17/17 22:00 03/19/17 21:29 Coreg - PO 3.125 mg BID [facility] Administration Collagenase 1 applic 03/18/17 11:00 03/19/17 09:40 Santyl - TP 1 applic DAILY [facility] Administration Diphenhydramine HCl 25 mg 03/17/17 13:24 Benadryl - PO Q6H PRN FOR ITCHING Heparin Sodium (Porcine) 5,000 unit 03/17/17 17:59 Heparin - IVPUSH PRN PRN Heparin Heparin Sodium (Porcine) 1,000 unit 03/17/17 13:00 03/18/17 18:47 Heparin - IVPUSH 1,000 unit PRN PRN Administration Heparin Heparin Sodium/Dextrose 500 mls @ 20 mls/hr 03/17/17 18:00 03/19/17 16:15 Heparin Infusion - IVPB 1,200 units/hr TITR [facility] Titration Protocol 1,000 UNITS/HR Piperacillin/Tazobactam/Dextrose 50 mls @ 100 mls/hr 03/17/17 15:15 03/20/17 02 :12 Zosyn 2.25gm Ivpb (Premix) IVPB 100 mls/hr Q8H-IV [facility] Administration Protocol Morphine Sulfate 4 mg 03/19/17 14:25 03/20/17 02:43 Morphine Sulfate IVPUSH 4 mg Q4H PRN Administration PAIN Ranitidine HCl 150 mg 03/18/17 10:00 03/19/17 09:41 Zantac Oral Solution - PO 150 mg DAILY [facility] Administration Rosuvastatin Calcium 10 mg 03/17/17 22:00 03/19/17 21:29 Crestor - PO 10 mg HS [facility] Administration Sucralfate 0.5 gm 03/17/17 22:00 03/19/17 21:29 Carafate Oral Suspension - PO 0.5 gm BID [facility] Administration Valsartan 40 mg 03/18/17 17:30 03/19/17 09:41 Diovan - PO 40 mg DAILY [facility] Administration Warfarin Sodium 5 mg 03/18/17 18:00 03/19/17 18:13 Coumadin - PO 5 mg DAILY@1800 [facility] Administration ASSESSMENT/PLAN: Patient is a 77 year old male with a significant past medical history of ESRD HD (T,,), atrial fib, hypertension, DVT, right AKA, s/p left 2nd digit amputation lower extremity. He presented to the ED on 03/14/2017 for critical ischemia of left lower extremity. Patient is Slovenian speaking only and family reports having increased swelling to his left lower extremity. Pt comes with right AKA and a left middle toe amputation that was performed 3 weeks ago in [facility], where pt has been living for the past several years. Currently patient appears to have an infection of the left foot with gangrene of 2nd toe and +3 edema of the entire lower leg, and a lateral small circular ulceration. Pt comes with documentation from [facility] reflecting that he had patent DP and PT vessels in September of this year. Previous arterial study of left extremity reveals permeable arterial flow throughout extending from femoral to posterior tibial pulse. Imagin03/14/2017: CT/Abdomen CTA AOR & RLE Runoff: Extensive severe diffuse aortoiliac , femoro-popliteal and intrapoplitea, occluded left SFA and mucus occlusion of flow in a severely diseased the renal artery demonstrates at lease 70-90% stenosis. Occluded left ENMANUEL and two vessel runoff provided by CANARY RAISER and PA however degree of disease and stenosis cannot be discerned due to calcification and hardening artifacts. enlarged prostate. Small right sided pleural effusion with severe right lung base atelectic changes vs pnemonic infiltrates. 03/14/2017: US/Duplex arterial legs, limited ultrasound: Extensive artheroscleoric disease with occlusion of the SFA. There is weak, monosphasic flow present within the popliteal and posterior tibial arteries. Vascular/ID: Wound with Ischemic Left foot, acute s/p left lower extremity angiogram/angioplasty and stent placement on 03/16 On Vanco and Zosyn as per ID, renally dosed AAA found on CT scan, will need outpatient monitoring Heparin gtt stopped, now on Coumadin MRI ordered to r/o osteo Renal: ESRD, HD (on TThS) Will need new facility for outpatient HD set up On Renvela, Renal Diet Cardiology: Atrial Fibrillation, chronic Transition to Warfarin once INR is now therapeutic On Coreq BID, Diovan 40mg Cardiology following Hematology: Anemia, likely chronic Continue to monitor, tranfuse if hmg <8 CBC in a.m. F.E.N. Fluids: 1.2 liter fluid restriction, tolerating PO Electrolytes: monitor Nutrition: renal diet Prophylaxis: GI: deferred DVT: Coumadin Disposition: Requires inpatient hospitalization. Full code. Visit type - Emergency Visit Emergency Visit: Yes ED Registration Date: 03/14/17 Care time: The patient presented to the Emergency Department on the above date and was hospitalized for further evaluation of their emergent condition. - New Patient This patient is new to me today: No - Critical Care Critical Care patient: No - Discharge Referral Referred to [facility] Med P.C.: No
--- NOTE | 2017-03-20 10:44 | PN ---
Progress Note, Physician Chief Complaint: Not in distress S/P SFA angioplasty and stent History of Present Illness: Patient was seen and examined. Awake. Chart was reviewed Denies chest pain or SOB - Current Medication List Current Medications: Active Medications Alprazolam (Xanax -) 0.5 mg PO Q8H [facility] Aspirin (Asa -) 81 mg PO DAILY [facility] Last Admin: 03/19/17 09:41 Dose: 81 mg Budesonide/Formoterol Fumarate (Symbicort 80/4.5mcg -) 2 puff IH BID [facility] Last Admin: 03/19/17 21:31 Dose: 2 puff Carvedilol (Coreg -) 3.125 mg PO BID [facility] Last Admin: 03/19/17 21:29 Dose: 3.125 mg Collagenase (Santyl -) 1 applic TP DAILY [facility] Last Admin: 03/19/17 09:40 Dose: 1 applic Diphenhydramine HCl (Benadryl -) 25 mg PO Q6H PRN PRN Reason: FOR ITCHING Heparin Sodium (Porcine) (Heparin -) 5,000 unit IVPUSH PRN PRN PRN Reason: Heparin Heparin Sodium (Porcine) (Heparin -) 1,000 unit IVPUSH PRN PRN PRN Reason: Heparin Last Admin: 03/18/17 18:47 Dose: 1,000 unit Hydromorphone HCl (Dilaudid Injection -) 0.5 mg IVPB Q4H PRN PRN Reason: PAIN Heparin Sodium/Dextrose (Heparin Infusion -) 500 mls @ 20 mls/hr IVPB TITR [facility] ; 1,000 UNITS/HR PRN Reason: Protocol Last Titration: 03/19/17 16:15 Dose: 1,200 units/hr Piperacillin/Tazobactam/Dextrose (Zosyn 2.25gm Ivpb (Premix)) 50 mls @ 100 mls/ hr IVPB Q8H-IV [facility] PRN Reason: Protocol Last Admin: 03/20/17 02:12 Dose: 100 mls/hr Ranitidine HCl (Zantac Oral Solution -) 150 mg PO DAILY [facility] Last Admin: 03/19/17 09:41 Dose: 150 mg Rosuvastatin Calcium (Crestor -) 10 mg PO HS [facility] Last Admin: 03/19/17 21:29 Dose: 10 mg Sucralfate (Carafate Oral Suspension -) 0.5 gm PO BID [facility] Last Admin: 03/19/17 21:29 Dose: 0.5 gm Valsartan (Diovan -) 40 mg PO DAILY [facility] Last Admin: 03/19/17 09:41 Dose: 40 mg Warfarin Sodium (Coumadin -) 5 mg PO DAILY@1800 [facility] Last Admin: 03/19/17 18:13 Dose: 5 mg - Objective Vital Signs: Vital Signs Temperature 97.6 F 03/20/17 08:00 Pulse Rate 74 03/20/17 08:00 Respiratory Rate 20 03/20/17 08:00 Blood Pressure 100/58 03/20/17 08:00 O2 Sat by Pulse Oximetry (%) 96 03/19/17 20:24 Cardiovascular: Yes: Regular Rate and Rhythm, S1, S2 Respiratory: Yes: Diminished Gastrointestinal: Yes: Normal Bowel Sounds, Soft. No: Tenderness Extremities: Yes: Amputation Edema: No Labs: INR, PTT INR 1.42 (0.82-1.09) H 03/19/17 08:00 Problem List - Problems (1) Anemia Code(s): D64.9 - ANEMIA, UNSPECIFIED (2) Critical lower limb ischemia Code(s): I99.8 - OTHER DISORDER OF CIRCULATORY SYSTEM (3) ESRD (end stage renal disease) Code(s): N18.6 - END STAGE RENAL DISEASE (4) HLD (hyperlipidemia) Code(s): E78.5 - HYPERLIPIDEMIA, UNSPECIFIED Qualifiers: Hyperlipidemia type: pure hypercholesterolemia Qualified Code(s): E78.00 - Pure hypercholesterolemia, unspecified; E78.00 - Pure hypercholesterolemia, unspecified; E78.00 - Pure hypercholesterolemia, unspecified; E78.0 - Pure hypercholesterolemia (5) HTN (hypertension) Code(s): I10 - ESSENTIAL (PRIMARY) HYPERTENSION Qualifiers: Hypertension type: essential hypertension Qualified Code(s): I10 - Essential (primary) hypertension; I10 - Essential (primary) hypertension; I10 - Essential (primary) hypertension (6) S/P AKA (above knee amputation) Code(s): Z89.619 - ACQUIRED ABSENCE OF UNSPECIFIED LEG ABOVE KNEE Qualifiers: Laterality: right Qualified Code(s): Z89.611 - Acquired absence of right leg above knee; Z89.611 - Acquired absence of right leg above knee; Z89.611 - Acquired absence of right leg above knee (7) Amputated toe of left foot Code(s): Z89.422 - ACQUIRED ABSENCE OF OTHER LEFT TOE(S) (8) Atrial fibrillation Code(s): I48.91 - UNSPECIFIED ATRIAL FIBRILLATION Qualifiers: Atrial fibrillation type: persistent Qualified Code(s): I48.1 - Persistent atrial fibrillation; I48.1 - Persistent atrial fibrillation; I48.1 - Persistent atrial fibrillation; I48.1 - Persistent atrial fibrillation (9) Cardiomyopathy Code(s): I42.9 - CARDIOMYOPATHY, UNSPECIFIED Qualifiers: Cardiomyopathy type: unspecified Qualified Code(s): I42.9 - Cardiomyopathy, unspecified; I42.9 - Cardiomyopathy, unspecified; I42.9 - Cardiomyopathy, unspecified; I42.9 - Cardiomyopathy, unspecified (10) Systolic dysfunction, left ventricle Code(s): I51.9 - HEART DISEASE, UNSPECIFIED Assessment/Plan 1. PAD S/P right AKA and left toe amputation, occluded left SFA and AAA (4.6 cm ) s/p angiography ts/p angioplasty and SFA stent 2. Renal artery disease with ESRD on HD 3. HTN/HCVD 4. Persistent AF ([id number] score of 4) 5. History of DVT 6. Severe LV systolic dysfunction/cardiomyopathy 7. Severe tricuspid valve regurgitation with pulmonary hypertension 8. S/P mechanical fall PLAN: 1. Transthoracic echocardiography report was noted. Etiology of LV systolic dysfunction is unknown and possible coronary artery disease may need to be assessed with pharmacological nuclear myocardial perfusion imaging study 2. Continue with HD 3. Continue Heparin protocol. Eventually he will need to be on Warfarin therapy 4. Continue Carvedilol and up-titrate. 6. Continue statin therapy and check lipid panel 7. AAA also needs to be followed as outpatient Further plans are to follow. Ion Landrum MD
[2017-03-20 10:52] LABS: MCH 27.4 pg (25.7-33.7); MCHC 32.7 g/dl (32.0-35.9); MEAN CELL VOLUME 83.9 fl (80-96); MEAN PLT VOLUME 7.4 fl (7.5-11.1); NEUTROPHILS 80.3 % (42.8-82.8); PLATELET COUNT 87 K/MM3 (134-434); RDW 15.8 % (11.9-15.9); WHITE BLOOD COUNT 5.9 K/mm3 (4.0-10.0)
[2017-03-20 11:02] LABS: INR 2.21 (0.82-1.09)
[2017-03-20] MEDS ORDERED: PT OWN MED DRAWER 7, Y5N ONE (11:20)
[2017-03-20] MEDS: SUCRALFATE 1 GM/10 ML UNIT DOSE CUPS PO SCH ×2 (11:21→22:27)
[2017-03-20] MEDS: ASPIRIN 81 MG CHEWABLE TABLETS PO SCH (11:22)
[2017-03-20] MEDS: ALPRAZolam 0.25 MG TABLET PO SCH ×3 (11:22→22:26)
[2017-03-20] MEDS: CARVEDILOL 3.125 MG TABLET (FP) PO SCH ×2 (11:22→22:26)
[2017-03-20] MEDS: VALSARTAN 40 MG TABLET (FP) PO SCH (11:22)
[2017-03-20] MEDS: RANITIDINE HCL 150 MG/10 ML UNIT-DOSE PO SCH (11:23)
[2017-03-20] MEDS: BUDESONIDE/FORMETEROL FUMARATE 80/4.5 mcg INHALER IH SCH ×3 (11:23→22:42)
[2017-03-20 11:33] LABS: ALBUMIN 1.8 g/dl (3.4-5.0); ALK PHOS 104 U/L (45-117); ANION GAP 16 (8-16); BILIRUBIN,TOTAL 0.7 mg/dL (0.2-1.0); CALCIUM 7.3 mg/dL (8.5-10.1); CO2 24 mmol/L (21-32); CREATININE 7.1 mg/dL (0.7-1.3); GLUCOSE,RANDOM 70 mg/dL (74-106); SGOT/AST 15 U/L (15-37); SGPT/ALT < 6 U/L (12-78); TOT PROT 4.6 g/dl (6.4-8.2)
[2017-03-20] MEDS: HYDROmorphone HCL CARPU-JECT 1 MG/1 ML DISP.SYRIN IVPB PRN ×2 (11:34→16:13)
[2017-03-20 11:52] LABS: MAGNESIUM 1.9 mg/dL (1.8-2.4)
[2017-03-20] MEDS: COLLAGENASE CLOSTRIDIUM HIST. 30 GRAMS TUBE TP SCH (12:02)
[2017-03-20] MEDS: HEPARIN INFUSION - 500 ML IVPB SCH (12:46)
[2017-03-20] MEDS: WARFARIN NA 5 MG TABLET (UD) PO SCH (18:45)
[2017-03-20] MEDS: ROSUVASTATIN CA 10 MG TABLET (FP) PO SCH (22:26)
[2017-03-21] MEDS: PIPERACILLIN/TAZOB 2.25 GM 50 ML IVPB SCH ×3 (01:31→18:59)
[2017-03-21] MEDS ORDERED: VANCOMYCIN 1,000 MG in DEXTROSE 5%-WATER - 250 ML IVPB ONE ×2 (06:00→13:15)
[2017-03-21] MEDS: HYDROmorphone HCL CARPU-JECT 1 MG/1 ML DISP.SYRIN IVPB PRN ×2 (06:50→12:54)
[2017-03-21 07:31] LABS: BASOPHIL 1.1 % (0-2.0); EOSINOPHIL 1.1 % (0-4.5); MCH 27.4 pg (25.7-33.7); MCHC 32.5 g/dl (32.0-35.9); MEAN CELL VOLUME 84.1 fl (80-96); MEAN PLT VOLUME 7.7 fl (7.5-11.1); NEUTROPHILS 82.5 % (42.8-82.8); PLATELET COUNT 74 K/MM3 (134-434); RDW 16.5 % (11.9-15.9); WHITE BLOOD COUNT 6.5 K/mm3 (4.0-10.0)
[2017-03-21 07:53] LABS: INR 3.36 (0.82-1.09)
[2017-03-21 08:10] LABS: ALBUMIN 1.7 g/dl (3.4-5.0); ANION GAP 15 (8-16); CALCIUM 7.5 mg/dL (8.5-10.1); CO2 23 mmol/L (21-32); GLUCOSE,RANDOM 61 mg/dL (74-106); SGOT/AST 26 U/L (15-37); SGPT/ALT < 6 U/L (12-78)
[2017-03-21 08:20] LABS: ALK PHOS 96 U/L (45-117); BILIRUBIN,TOTAL 0.9 mg/dL (0.2-1.0); TOT PROT 4.4 g/dl (6.4-8.2)
[2017-03-21 08:45] LABS: CREATININE 7.8 mg/dL (0.7-1.3)
[2017-03-21] MEDS: COLLAGENASE CLOSTRIDIUM HIST. 30 GRAMS TUBE TP SCH (09:00)
[2017-03-21] MEDS: CARVEDILOL 3.125 MG TABLET (FP) PO SCH ×2 (10:00→22:13)
[2017-03-21] MEDS: VALSARTAN 40 MG TABLET (FP) PO SCH (10:00)
[2017-03-21] MEDS ORDERED: DIPYRIDAMOLE STRESS TEST IVPB ONE (10:30)
[2017-03-21] MEDS ORDERED: DEXTROSE 5% IVPB ONE (10:30)
[2017-03-21] MEDS ORDERED: WATER IVPB ONE (10:30)
[2017-03-21 11:28] LABS: PHOSPHOROUS 6.3 mg/dL (2.5-4.9)
--- NOTE | 2017-03-21 11:47 | PN ---
Progress Note, Physician Chief Complaint: Restless S/P SFA angioplasty and stent History of Present Illness: Patient was seen and examined. Awake. Chart was reviewed Denies chest pain or SOB, but restless Scheduled for pharmacological nuclear perfusion imaging, but unable to do since he cannot stay still for the image - Current Medication List Current Medications: Active Medications Alprazolam (Xanax -) 0.5 mg PO HS [facility] Last Admin: 03/20/17 22:26 Dose: 0.5 mg Aspirin (Asa -) 81 mg PO DAILY [facility] Last Admin: 03/20/17 11:22 Dose: 81 mg Budesonide/Formoterol Fumarate (Symbicort 80/4.5mcg -) 2 puff IH BID [facility] Last Admin: 03/20/17 22:42 Dose: Not Given Carvedilol (Coreg -) 3.125 mg PO BID [facility] Last Admin: 03/20/17 22:26 Dose: 3.125 mg Collagenase (Santyl -) 1 applic TP DAILY [facility] Last Admin: 03/20/17 12:02 Dose: 1 applic Diphenhydramine HCl (Benadryl -) 25 mg PO Q6H PRN PRN Reason: FOR ITCHING Epoetin Nash (Epogen -) 20,000 units IVPUSH ONCE ONE Stop: 03/21/17 06:01 Hydromorphone HCl (Dilaudid Injection -) 0.5 mg IVPB Q4H PRN PRN Reason: PAIN Last Admin: 03/21/17 06:50 Dose: 0.5 mg Piperacillin/Tazobactam/Dextrose (Zosyn 2.25gm Ivpb (Premix)) 50 mls @ 100 mls/ hr IVPB Q8H-IV [facility] PRN Reason: Protocol Last Admin: 03/21/17 01:31 Dose: 100 mls/hr Vancomycin HCl 1,000 mg/ (Dextrose) 250 mls @ 250 mls/hr IVPB ONCE ONE PRN Reason: Protocol Stop: 03/21/17 06:59 Ranitidine HCl (Zantac Oral Solution -) 150 mg PO DAILY [facility] Last Admin: 03/20/17 11:23 Dose: Not Given Rosuvastatin Calcium (Crestor -) 10 mg PO HS [facility] Last Admin: 03/20/17 22:26 Dose: 10 mg Sucralfate (Carafate Oral Suspension -) 0.5 gm PO BID [facility] Last Admin: 03/20/17 22:27 Dose: 0.5 gm Valsartan (Diovan -) 40 mg PO DAILY [facility] Last Admin: 03/20/17 11:22 Dose: 40 mg Warfarin Sodium (Coumadin -) 5 mg PO DAILY@1800 [facility] Last Admin: 03/20/17 18:45 Dose: 5 mg - Objective Vital Signs: Vital Signs Temperature 98.0 F 03/21/17 07:54 Pulse Rate 74 03/21/17 07:54 Respiratory Rate 20 03/21/17 07:54 Blood Pressure 115/56 03/21/17 07:54 O2 Sat by Pulse Oximetry (%) 97 03/21/17 08:30 Neck: Yes: Supple Cardiovascular: Yes: Regular Rate and Rhythm, Murmur (Soft SM), S1, S2 Respiratory: Yes: Diminished Gastrointestinal: Yes: Normal Bowel Sounds, Soft. No: Tenderness Extremities: Yes: Amputation Edema: No Labs: CBC, BMP 03/21/17 06:10 03/21/17 06:10 INR, PTT INR 3.36 (0.82-1.09) H D 03/21/17 06:10 Problem List - Problems (1) Anemia Code(s): D64.9 - ANEMIA, UNSPECIFIED (2) Critical lower limb ischemia Code(s): I99.8 - OTHER DISORDER OF CIRCULATORY SYSTEM (3) ESRD (end stage renal disease) Code(s): N18.6 - END STAGE RENAL DISEASE (4) HLD (hyperlipidemia) Code(s): E78.5 - HYPERLIPIDEMIA, UNSPECIFIED Qualifiers: Hyperlipidemia type: pure hypercholesterolemia Qualified Code(s): E78.00 - Pure hypercholesterolemia, unspecified; E78.00 - Pure hypercholesterolemia, unspecified; E78.00 - Pure hypercholesterolemia, unspecified; E78.0 - Pure hypercholesterolemia (5) HTN (hypertension) Code(s): I10 - ESSENTIAL (PRIMARY) HYPERTENSION Qualifiers: Hypertension type: essential hypertension Qualified Code(s): I10 - Essential (primary) hypertension; I10 - Essential (primary) hypertension; I10 - Essential (primary) hypertension (6) S/P AKA (above knee amputation) Code(s): Z89.619 - ACQUIRED ABSENCE OF UNSPECIFIED LEG ABOVE KNEE Qualifiers: Laterality: right Qualified Code(s): Z89.611 - Acquired absence of right leg above knee; Z89.611 - Acquired absence of right leg above knee; Z89.611 - Acquired absence of right leg above knee (7) Amputated toe of left foot Code(s): Z89.422 - ACQUIRED ABSENCE OF OTHER LEFT TOE(S) (8) Atrial fibrillation Code(s): I48.91 - UNSPECIFIED ATRIAL FIBRILLATION Qualifiers: Atrial fibrillation type: persistent Qualified Code(s): I48.1 - Persistent atrial fibrillation; I48.1 - Persistent atrial fibrillation; I48.1 - Persistent atrial fibrillation; I48.1 - Persistent atrial fibrillation (9) Cardiomyopathy Code(s): I42.9 - CARDIOMYOPATHY, UNSPECIFIED Qualifiers: Cardiomyopathy type: unspecified Qualified Code(s): I42.9 - Cardiomyopathy, unspecified; I42.9 - Cardiomyopathy, unspecified; I42.9 - Cardiomyopathy, unspecified; I42.9 - Cardiomyopathy, unspecified (10) Systolic dysfunction, left ventricle Code(s): I51.9 - HEART DISEASE, UNSPECIFIED Assessment/Plan 1. PAD S/P right AKA and left toe amputation, occluded left SFA and AAA (4.6 cm ) s/p angiography s/p angioplasty and SFA stent 2. Renal artery disease with ESRD on HD 3. HTN/HCVD 4. Persistent AF ([id number] score of 4) 5. History of DVT 6. Severe LV systolic dysfunction/cardiomyopathy 7. Severe tricuspid valve regurgitation with pulmonary hypertension 8. S/P mechanical fall PLAN: 1. Transthoracic echocardiography report was noted. Etiology of LV systolic dysfunction is unknown and possible coronary artery disease may need to be assessed with pharmacological nuclear myocardial perfusion imaging study if feasible, however; not possible due technical limitation. Optimize medical therapy 2. Continue with HD 3. Eventually he will need to be on Warfarin therapy, however; patient exhibits thrombocytopenia 4. Continue Carvedilol and up-titrate. 6. Continue statin therapy and check lipid panel 7. AAA also needs to be followed as outpatient Further plans are to follow. Ion Landrum MD
--- NOTE | 2017-03-21 12:18 | PN ---
Progress Note, Physician History of Present Illness: patient stable could not complete nuclear medicine stress leg warm - Current Medication List Current Medications: Active Medications Alprazolam (Xanax -) 0.5 mg PO HS [facility] Last Admin: 03/20/17 22:26 Dose: 0.5 mg Aspirin (Asa -) 81 mg PO DAILY [facility] Last Admin: 03/20/17 11:22 Dose: 81 mg Budesonide/Formoterol Fumarate (Symbicort 80/4.5mcg -) 2 puff IH BID [facility] Last Admin: 03/20/17 22:42 Dose: Not Given Carvedilol (Coreg -) 3.125 mg PO BID [facility] Last Admin: 03/20/17 22:26 Dose: 3.125 mg Collagenase (Santyl -) 1 applic TP DAILY [facility] Last Admin: 03/20/17 12:02 Dose: 1 applic Diphenhydramine HCl (Benadryl -) 25 mg PO Q6H PRN PRN Reason: FOR ITCHING Epoetin Nash (Epogen -) 20,000 units IVPUSH ONCE ONE Stop: 03/21/17 06:01 Hydromorphone HCl (Dilaudid Injection -) 0.5 mg IVPB Q4H PRN PRN Reason: PAIN Last Admin: 03/21/17 06:50 Dose: 0.5 mg Piperacillin/Tazobactam/Dextrose (Zosyn 2.25gm Ivpb (Premix)) 50 mls @ 100 mls/ hr IVPB Q8H-IV [facility] PRN Reason: Protocol Last Admin: 03/21/17 01:31 Dose: 100 mls/hr Vancomycin HCl 1,000 mg/ (Dextrose) 250 mls @ 250 mls/hr IVPB ONCE ONE PRN Reason: Protocol Stop: 03/21/17 06:59 Ranitidine HCl (Zantac Oral Solution -) 150 mg PO DAILY [facility] Last Admin: 03/20/17 11:23 Dose: Not Given Rosuvastatin Calcium (Crestor -) 10 mg PO HS [facility] Last Admin: 03/20/17 22:26 Dose: 10 mg Sucralfate (Carafate Oral Suspension -) 0.5 gm PO BID [facility] Last Admin: 03/20/17 22:27 Dose: 0.5 gm Valsartan (Diovan -) 40 mg PO DAILY [facility] Last Admin: 03/20/17 11:22 Dose: 40 mg Warfarin Sodium (Coumadin -) 5 mg PO DAILY@1800 [facility] Last Admin: 03/20/17 18:45 Dose: 5 mg - Objective Vital Signs: Vital Signs Temperature 98.0 F 03/21/17 07:54 Pulse Rate 74 03/21/17 07:54 Respiratory Rate 20 03/21/17 07:54 Blood Pressure 115/56 03/21/17 07:54 O2 Sat by Pulse Oximetry (%) 97 03/21/17 08:30 Constitutional: Yes: Calm, Mild Distress Cardiovascular: Yes: Regular Rate and Rhythm Respiratory: Yes: Regular, CTA Bilaterally Gastrointestinal: Yes: Normal Bowel Sounds, Soft Musculoskeletal: Yes: Other Extremities: Yes: Other Neurological: Yes: Alert Psychiatric: Yes: Alert Labs: CBC, BMP 03/21/17 06:10 03/21/17 06:10 INR, PTT INR 3.36 (0.82-1.09) H D 03/21/17 06:10 Assessment/Plan Problem List - Problems (1) Anemia Code(s): D64.9 - ANEMIA, UNSPECIFIED (2) Critical lower limb ischemia Code(s): I99.8 - OTHER DISORDER OF CIRCULATORY SYSTEM (3) ESRD (end stage renal disease) Code(s): N18.6 - END STAGE RENAL DISEASE (4) HTN (hypertension) Code(s): I10 - ESSENTIAL (PRIMARY) HYPERTENSION (5) Open wnd foot-complicated Code(s): S91.309A - UNSPECIFIED OPEN WOUND, UNSPECIFIED FOOT, INITIAL ENCOUNTER plan ct abx await for mri of the leg we will see how the leg looks rest as per primary
[2017-03-21] MEDS ORDERED: PT OWN MED DRAWER 7, Y5N ONE ×2 (12:19→15:38)
[2017-03-21] MEDS: ASPIRIN 81 MG CHEWABLE TABLETS PO SCH (12:22)
[2017-03-21] MEDS: SUCRALFATE 1 GM/10 ML UNIT DOSE CUPS PO SCH ×2 (12:22→22:13)
[2017-03-21] MEDS: RANITIDINE HCL 150 MG/10 ML UNIT-DOSE PO SCH (12:23)
[2017-03-21] MEDS: BUDESONIDE/FORMETEROL FUMARATE 80/4.5 mcg INHALER IH SCH ×2 (12:24→22:14)
--- NOTE | 2017-03-21 12:52 | PN ---
Physical Exam: SUBJECTIVE: Patient seen and examined at the bedside. He denies any discomfort, pain or shortness of breath. OBJECTIVE: Patient was unable to tolerate dialysis today as his systolic BP dropped to to 70-80s, given IV bolus of 500cc in dialysis. Dialysis terminated by Keagan Krishnamurthy MD I spoke with Dr. Heredia, and ordered for patient to receive Vancomycin today even though not getting dialysis Blood cultures ordered Vital Signs Period Temp Pulse Resp BP Sys/Coleman Pulse Ox Last 24 Hr 97.7 F-98.0 F 74-80 20-23 79-115/43-56 96-97 GENERAL: Awake, alert, and fully oriented, kyrgyz speaking HEAD: Normal with no signs of trauma. EYES: Pupils equal, round and reactive to light, extraocular movements intact, sclera anicteric, conjunctiva clear. No lid lag. EARS, NOSE, THROAT: Ears normal, nares patent, oropharynx clear without exudates. Moist mucous membranes. NECK: Normal range of motion, supple without lymphadenopathy, JVD, or masses. LUNGS: Breath sounds diminished bilaterall, no wheezing HEART: irregular heart rate, hx of afib ABDOMEN: Soft, nontender, not distended, normoactive bowel sounds, no guarding, no rebound, no masses. No hepatomegaly or splenomegaly. UPPER EXTREMITIES: AV fistula RUE, thrill/bruit present. AV fistula LUE not working LOWER EXTREMITIES: + 3 lower ext pitting peripheral edema. Right AKA NEUROLOGICAL: Normal speech. Gait not observed. PSYCHIATRIC: Cooperative. Good eye contact. Appropriate mood and affect. SKIN: Warm, dry, normal turgor, no rashes. normal capillary refill. Patient presented with multiple wounds: (1) Stage II ulcer to buttocks, 2x2 cm circular ulcer on left lateral malleolus (2) gangrenous/necrotic dorsal third digit. (3) Amputation site between 2nd and 3rd space appears yellow, with slough, open wound. Wound site is malodorous, dressing stained and intact Laboratory Results - last 24 hr 03/21/17 03/21/17 03/21/17 06:10 06:10 06:10 WBC 6.5 RBC 3.57 L Hgb 9.8 L D Hct 30.0 L MCV 84.1 MCH 27.4 MCHC 32.5 RDW 16.5 H Plt Count 74 L MPV 7.7 Neutrophils % 82.5 Lymphocytes % 6.1 L Monocytes % 9.2 Eosinophils % 1.1 Basophils % 1.1 PT with INR 38.00 H INR 3.36 H D PTT (Actin FS) 54.9 H Sodium Potassium Chloride Carbon Dioxide Anion Gap BUN Creatinine Creat Clearance w eGFR Random Glucose Calcium Phosphorus Total Bilirubin AST ALT Alkaline Phosphatase Total Protein Albumin Random Vancomycin 03/21/17 03/21/17 03/21/17 06:10 06:10 06:10 WBC RBC Hgb Hct MCV MCH MCHC RDW Plt Count MPV Neutrophils % Lymphocytes % Monocytes % Eosinophils % Basophils % PT with INR INR PTT (Actin FS) Sodium 140 Potassium 3.8 Chloride 102 Carbon Dioxide 23 Anion Gap 15 BUN 43 H Creatinine 7.8 H* Creat Clearance w eGFR 6.79 Random Glucose 61 L Calcium 7.5 L Phosphorus 6.3 H D Cancelled Total Bilirubin 0.9 D AST 26 D ALT < 6 L Alkaline Phosphatase 96 Total Protein 4.4 L Albumin 1.7 L Random Vancomycin 17.546 Active Medications Generic Name Dose Route Start Last Admin Trade Name Freq PRN Reason Stop Dose Admin Alprazolam 0.5 mg 03/20/17 22:00 03/20/17 22:26 Xanax - PO 0.5 mg HS [facility] Administration Aspirin 81 mg 03/18/17 10:00 03/21/17 12:22 Asa - PO 81 mg DAILY [facility] Administration Budesonide/Formoterol Fumarate 2 puff 03/17/17 22:00 03/21/17 12:24 Symbicort 80/4.5mcg - IH 2 puff BID [facility] Administration Carvedilol 3.125 mg 03/17/17 22:00 03/21/17 10:00 Coreg - PO Not Given BID [facility] Collagenase 1 applic 03/18/17 11:00 03/21/17 09:00 Santyl - TP 1 applic DAILY [facility] Administration Diphenhydramine HCl 25 mg 03/17/17 13:24 Benadryl - PO Q6H PRN FOR ITCHING Epoetin Nash 20,000 units 03/21/17 06:00 Epogen - IVPUSH 03/21/17 06:01 ONCE ONE Hydromorphone HCl 0.5 mg 03/20/17 10:35 03/21/17 06:50 Dilaudid Injection - IVPB 0.5 mg Q4H PRN Administration PAIN Piperacillin/Tazobactam/Dextrose 50 mls @ 100 mls/hr 03/17/17 15:15 03/21/17 12 :24 Zosyn 2.25gm Ivpb (Premix) IVPB 100 mls/hr Q8H-IV [facility] Administration Protocol Vancomycin HCl 1,000 mg/ 250 mls @ 250 mls/hr 03/21/17 06:00 Dextrose IVPB 03/21/17 06:59 ONCE ONE Protocol Ranitidine HCl 150 mg 03/18/17 10:00 03/21/17 12:23 Zantac Oral Solution - PO 150 mg DAILY [facility] Administration Rosuvastatin Calcium 10 mg 03/17/17 22:00 03/20/17 22:26 Crestor - PO 10 mg HS [facility] Administration Sucralfate 0.5 gm 03/17/17 22:00 03/21/17 12:22 Carafate Oral Suspension - PO 0.5 gm BID [facility] Administration Valsartan 40 mg 03/18/17 17:30 03/21/17 10:00 Diovan - PO Not Given DAILY [facility] Warfarin Sodium 5 mg 03/18/17 18:00 03/20/17 18:45 Coumadin - PO 5 mg DAILY@1800 [facility] Administration ASSESSMENT/PLAN: Patient is a 77 year old male with a significant past medical history of ESRD HD (T,,), atrial fib, hypertension, DVT, right AKA, s/p left 2nd digit amputation lower extremity. He presented to the ED on 03/14/2017 for critical ischemia of left lower extremity. Patient is Greenlandic speaking only and family reports having increased swelling to his left lower extremity. Pt comes with right AKA and a left middle toe amputation that was performed 3 weeks ago in [facility], where pt has been living for the past several years. Currently patient appears to have an infection of the left foot with gangrene of 2nd toe and +3 edema of the entire lower leg, and a lateral small circular ulceration. Pt comes with documentation from [facility] reflecting that he had patent DP and PT vessels in September of this year. Previous arterial study of left extremity reveals permeable arterial flow throughout extending from femoral to posterior tibial pulse. Imagin03/14/2017: CT/Abdomen CTA AOR & RLE Runoff: Extensive severe diffuse aortoiliac , femoro-popliteal and intrapoplitea, occluded left SFA and mucus occlusion of flow in a severely diseased the renal artery demonstrates at lease 70-90% stenosis. Occluded left ENMANUEL and two vessel runoff provided by [employer] and PA however degree of disease and stenosis cannot be discerned due to calcification and hardening artifacts. enlarged prostate. Small right sided pleural effusion with severe right lung base atelectic changes vs pnemonic infiltrates. 03/14/2017: US/Duplex arterial legs, limited ultrasound: Extensive artheroscleoric disease with occlusion of the SFA. There is weak, monosphasic flow present within the popliteal and posterior tibial arteries. Vascular/ID: Wound with Ischemic Left foot, acute s/p left lower extremity angiogram/angioplasty and stent placement on 03/16 On Vanco and Zosyn as per ID, renally dosed - Vanco with dialysis, but unable to get dialysis today d/t to hypotension. Pt to continue to get Vanco today a per ID Blood cultures ordered AAA found on CT scan, will need outpatient monitoring Heparin gtt stopped on 03/20/17, now on Coumadin per INR MRI ordered to r/o osteo Renal: ESRD, HD (on [facility]ThS) Will need new facility for outpatient HD set up On Renvela, Renal Diet Dialysis ordered for today, pt became hypotensive, so dialysis terminated Cardiology: Atrial Fibrillation, chronic On Coumadin based on INR, will hold tonight's dose of coumadin as INR is 3.36 Resume Coumadin tomorrow Hypertension, chronic but now with hypotension, will add parameters to BP meds On Coreq BID, Diovan 40mg with parameters to hold if systolic is <100, heart rate <60 Cardiology following Hematology: Anemia, likely chronic Continue to monitor, tranfuse if hmg <8 CBC in a.m. F.E.N. Fluids: 1.2 liter fluid restriction, tolerating PO Electrolytes: monitor Nutrition: renal diet Prophylaxis: GI: deferred DVT: Coumadin Disposition: Requires inpatient hospitalization. Full code. Discharge plan is for SNF for continuation of dialysis once medicaid application is complete. Visit type - Emergency Visit Emergency Visit: Yes ED Registration Date: 03/14/17 Care time: The patient presented to the Emergency Department on the above date and was hospitalized for further evaluation of their emergent condition. - New Patient This patient is new to me today: No - Critical Care Critical Care patient: No - Discharge Referral Referred to [facility] Med P.C.: No
[2017-03-21] MEDS ORDERED: EPOETIN ALFA 20,000 UNIT/1 ML VIAL IVPUSH ONE (13:15)
--- NOTE | 2017-03-21 15:00 | PN ---
Progress Note (short form) - Note Progress Note: VAscular Surgery Pt seen and examined in HD Dressing changed. Pt with a palpable PT pulse. pt's great and third toe are cool to touch. Pt does not have a artery feeding his forefoot from his disease. Spoke to son at length about this. He understands that in the future his father might lose his toes (via a TMA). For now we will watch for demarcation. Son understands. INR is 3 Cont santyl to left foot Faizan Villa DO
[2017-03-21] MEDS ORDERED: VALSARTAN 40 MG TABLET (FP) PO SCH (15:28)
--- NOTE | 2017-03-21 15:38 | PN ---
Progress Note, Physician Chief Complaint: Patient is a 77 year old male with a significant past medical history of ESRD HD , atrial fib, hypertension, DVT, right AKA, s/p left 2nd digit amputation lower extremity. He presented to the ED on 03/14/2017 for critical ischemia of left lower extremity. Patient is Montenegrin speaking only and family reports having increased swelling to his left lower extremity. Pt comes with right AKA and a left middle toe amputation that was performed 3 weeks ago in [facility], where pt has been living for the past several years. Currently patient appears to have an infection of the left foot with gangrene of 2nd toe and +3 edema of the entire lower leg, and a lateral small circular ulceration. Previous arterial study of left extremity reveals permeable arterial flow throughout extending from femoral to posterior tibial pulse. History of Present Illness: The patient seen in his room. Could not be dialysed due to hypotension. TThe patient's son with him. - Current Medication List Current Medications: Active Medications Alprazolam (Xanax -) 0.5 mg PO HS [facility] Last Admin: 03/20/17 22:26 Dose: 0.5 mg Aspirin (Asa -) 81 mg PO DAILY [facility] Last Admin: 03/21/17 12:22 Dose: 81 mg Budesonide/Formoterol Fumarate (Symbicort 80/4.5mcg -) 2 puff IH BID [facility] Last Admin: 03/21/17 12:24 Dose: 2 puff Carvedilol (Coreg -) 3.125 mg PO BID [facility] Collagenase (Santyl -) 1 applic TP DAILY [facility] Last Admin: 03/21/17 09:00 Dose: 1 applic Diphenhydramine HCl (Benadryl -) 25 mg PO Q6H PRN PRN Reason: FOR ITCHING Piperacillin/Tazobactam/Dextrose (Zosyn 2.25gm Ivpb (Premix)) 50 mls @ 100 mls/ hr IVPB Q8H-IV [facility] PRN Reason: Protocol Last Admin: 03/21/17 12:24 Dose: 100 mls/hr Morphine Sulfate (Morphine Sulfate) 2 mg IVPUSH Q6H PRN PRN Reason: PAIN Ranitidine HCl (Zantac Oral Solution -) 150 mg PO DAILY [facility] Last Admin: 03/21/17 12:23 Dose: 150 mg Rosuvastatin Calcium (Crestor -) 10 mg PO HS [facility] Last Admin: 03/20/17 22:26 Dose: 10 mg Sucralfate (Carafate Oral Suspension -) 0.5 gm PO BID [facility] Last Admin: 03/21/17 12:22 Dose: 0.5 gm Valsartan (Diovan -) 40 mg PO DAILY [facility] Warfarin Sodium (Coumadin -) 2.5 mg PO DAILY@1800 [facility] - Objective Vital Signs: Vital Signs Temperature 98.2 F 03/21/17 14:46 Pulse Rate 79 03/21/17 14:46 Respiratory Rate 20 03/21/17 14:46 Blood Pressure 112/50 03/21/17 14:46 O2 Sat by Pulse Oximetry (%) 97 03/21/17 08:30 Constitutional: Yes: Anxious HENT: Yes: Atraumatic Cardiovascular: Yes: Pulse Irregular Respiratory: Yes: CTA Bilaterally Gastrointestinal: Yes: Normal Bowel Sounds Neurological: Yes: Alert, Oriented Labs: CBC, BMP 03/21/17 06:10 03/21/17 06:10 INR, PTT INR 3.36 (0.82-1.09) H D 03/21/17 06:10 Problem List - Problems (1) Amputated toe of left foot Code(s): Z89.422 - ACQUIRED ABSENCE OF OTHER LEFT TOE(S) (2) Anemia Code(s): D64.9 - ANEMIA, UNSPECIFIED (3) Atrial fibrillation Code(s): I48.91 - UNSPECIFIED ATRIAL FIBRILLATION Qualifiers: Atrial fibrillation type: persistent Qualified Code(s): I48.1 - Persistent atrial fibrillation; I48.1 - Persistent atrial fibrillation; I48.1 - Persistent atrial fibrillation; I48.1 - Persistent atrial fibrillation (4) ESRD (end stage renal disease) Code(s): N18.6 - END STAGE RENAL DISEASE (5) HTN (hypertension) Code(s): I10 - ESSENTIAL (PRIMARY) HYPERTENSION Qualifiers: Hypertension type: essential hypertension Qualified Code(s): I10 - Essential (primary) hypertension; I10 - Essential (primary) hypertension; I10 - Essential (primary) hypertension (6) Open wnd foot-complicated Code(s): S91.309A - UNSPECIFIED OPEN WOUND, UNSPECIFIED FOOT, INITIAL ENCOUNTER (7) S/P AKA (above knee amputation) Code(s): Z89.619 - ACQUIRED ABSENCE OF UNSPECIFIED LEG ABOVE KNEE Qualifiers: Laterality: right Qualified Code(s): Z89.611 - Acquired absence of right leg above knee; Z89.611 - Acquired absence of right leg above knee; Z89.611 - Acquired absence of right leg above knee Assessment/Plan Patient is a 77 year old male with a significant past medical history of ESRD HD , Atrial fib, hypertension, DVT, right AKA, s/p left 2nd digit amputation lower extremity. Patient is Montenegrin speaking only and family reports having increased swelling to his left lower extremity. Pt comes with right AKA and a left middle toe amputation that was performed 3 weeks ago in [facility], where pt has been living for the past several years. Currently patient appears to have an infection of the left foot with gangrene of 2nd toe and +3 edema of the entire lower leg, and a lateral small circular ulceration. Pt comes with documentation from [facility] reflecting that he had patent DP and PT vessels in September of this year. Previous arterial study of left extremity reveals permeable arterial flow throughout extending from femoral to posterior tibial pulse. The patient could not be dialyzed today. BP was low. Now in acceptable range. Will re-schedule for HD tomorrow. Emily San MD
[2017-03-21] MEDS: ALPRAZolam 0.25 MG TABLET PO SCH (22:13)
[2017-03-21] MEDS: ROSUVASTATIN CA 10 MG TABLET (FP) PO SCH (22:14)
[2017-03-21] MEDS: morphine SULFATE 4 MG/ML VIAL IVPUSH PRN (23:28)
[2017-03-22] MEDS: PIPERACILLIN/TAZOB 2.25 GM 50 ML IVPB SCH ×3 (02:46→17:35)
--- NOTE | 2017-03-22 08:23 | PN ---
Physical Exam: SUBJECTIVE: Patient seen and examined at the bedside. He denies any chest pain, shortness of breath or dizziness. OBJECTIVE: 0815a Called by primary RN to report that patient was hypotensive this morning prior to dialysis. Dialysis was pushed back to this afternoon 2/2 to hypotension Pt received a dose of Morphine @ 0600 this a.m. for left lower ext pain On exam patient is awake, alert, in no acute distress Manual BP taken by me on left arm, 88/60, lungs diminished with right mid lobe fine crackles, tolerating room air Plan: recheck BP prior to dialysis which was re-scheduled for this afternoon, if remains hypotensive, will contact renal. Blood cultures sent yesterday, pending 0900a Blood pressure rechecked by expert medical writer: 100/60, hold all antihypertensives prior to dialysis. Dialysis accepted pt now after BP improved. 11:15a Patient seen in dialysis, c/o of left leg pain, medicated with morphine by primary RN, BP 87/40, albumin infusing Blood counts are dropping: hmg/hct low, 1 unit of prbc ordered. platelets 34, 1 unit of platelets ordered. inr elevated @ 5, Coumadin was not given overnight, continue to hold Coumadin. Heme consulted. Vital Signs Period Temp Pulse Resp BP Sys/Coleman Pulse Ox Last 24 Hr 97.5 F-98.2 F 76-80 20-20 95-117/47-59 97-97 GENERAL: Awake, alert, and fully oriented, syriac speaking HEAD: Normal with no signs of trauma. EYES: Pupils equal, round and reactive to light, extraocular movements intact, sclera anicteric, conjunctiva clear. No lid lag. EARS, NOSE, THROAT: Ears normal, nares patent, oropharynx clear without exudates. Moist mucous membranes. NECK: Normal range of motion, supple without lymphadenopathy, JVD, or masses. LUNGS: Breath sounds diminished bilaterall, no wheezing, +fine crackles on right mid lobe, oxygen stable on room air HEART: irregular heart rate, hx of afib ABDOMEN: Soft, nontender, not distended, normoactive bowel sounds, no guarding, no rebound, no masses. No hepatomegaly or splenomegaly. UPPER EXTREMITIES: AV fistula RUE, thrill/bruit present. AV fistula LUE not working LOWER EXTREMITIES: + 3 left lower ext pitting peripheral edema. Right AKA NEUROLOGICAL: Normal speech. PSYCHIATRIC: Cooperative. Good eye contact. Appropriate mood and affect. SKIN: Warm, dry, normal turgor, no rashes. normal capillary refill. Patient presented with multiple wounds: (1) Stage II ulcer to buttocks, 2x2 cm circular ulcer on left lateral malleolus (2) gangrenous/necrotic dorsal third digit. (3) Amputation site between 2nd and 3rd space appears yellow, with slough, open wound. Wound site is malodorous, dressing stained and intact Laboratory Results - last 24 hr 03/18/17 03/21/17 03/21/17 12:30 06:10 06:10 PTT (Actin FS) 54.9 H Sodium 140 Potassium 3.8 Chloride 102 Carbon Dioxide 23 Anion Gap 15 BUN 43 H Creatinine 7.8 H* Creat Clearance w eGFR 6.79 Random Glucose 61 L Calcium 7.5 L Phosphorus 6.3 H D Total Bilirubin 0.9 D AST 26 D ALT < 6 L Alkaline Phosphatase 96 Total Protein 4.4 L Albumin 1.7 L Random Vancomycin Blood Type O POSITIVE Antibody Screen Negative Crossmatch See Detail 03/21/17 03/21/17 06:10 06:10 PTT (Actin FS) Sodium Potassium Chloride Carbon Dioxide Anion Gap BUN Creatinine Creat Clearance w eGFR Random Glucose Calcium Phosphorus Cancelled Total Bilirubin AST ALT Alkaline Phosphatase Total Protein Albumin Random Vancomycin 17.546 Blood Type Antibody Screen Crossmatch Active Medications Generic Name Dose Route Start Last Admin Trade Name Freq PRN Reason Stop Dose Admin Alprazolam 0.5 mg 03/20/17 22:00 03/21/17 22:13 Xanax - PO 0.5 mg HS [facility] Administration Aspirin 81 mg 03/18/17 10:00 03/21/17 12:22 Asa - PO 81 mg DAILY [facility] Administration Budesonide/Formoterol Fumarate 2 puff 03/17/17 22:00 03/21/17 22:14 Symbicort 80/4.5mcg - IH 2 puff BID [facility] Administration Carvedilol 3.125 mg 03/21/17 15:27 03/21/17 22:13 Coreg - PO 3.125 mg BID [facility] Administration Collagenase 1 applic 03/18/17 11:00 03/21/17 09:00 Santyl - TP 1 applic DAILY [facility] Administration Diphenhydramine HCl 25 mg 03/17/17 13:24 Benadryl - PO Q6H PRN FOR ITCHING Piperacillin/Tazobactam/Dextrose 50 mls @ 100 mls/hr 03/17/17 15:15 03/22/17 02 :46 Zosyn 2.25gm Ivpb (Premix) IVPB 100 mls/hr Q8H-IV [facility] Administration Protocol Morphine Sulfate 2 mg 03/21/17 15:12 03/21/17 23:28 Morphine Sulfate IVPUSH 2 mg Q6H PRN Administration PAIN Ranitidine HCl 150 mg 03/18/17 10:00 03/21/17 12:23 Zantac Oral Solution - PO 150 mg DAILY [facility] Administration Rosuvastatin Calcium 10 mg 03/17/17 22:00 03/21/17 22:14 Crestor - PO 10 mg HS [facility] Administration Sucralfate 0.5 gm 03/17/17 22:00 03/21/17 22:13 Carafate Oral Suspension - PO 0.5 gm BID [facility] Administration Valsartan 40 mg 03/21/17 15:28 Diovan - PO DAILY [facility] Warfarin Sodium 2.5 mg 03/22/17 18:00 Coumadin - PO DAILY@1800 [facility] ASSESSMENT/PLAN: Patient is a 77 year old male with a significant past medical history of ESRD HD (T,Th,), atrial fib, hypertension, DVT, right AKA, s/p left 2nd digit amputation lower extremity. He presented to the ED on 03/14/2017 for critical ischemia of left lower extremity. Patient is Hebrew speaking only and family reports having increased swelling to his left lower extremity. Pt comes with right AKA and a left middle toe amputation that was performed 3 weeks ago in [facility], where pt has been living for the past several years. Patient has medical records from [facility] in his file. On admission there is an infection of the left foot with gangrene of 2nd toe and +3 edema of the entire lower leg, and a lateral small circular ulceration. Pt comes with documentation from [facility] reflecting that he had patent DP and PT vessels in September of this year. Previous arterial study of left extremity reveals permeable arterial flow throughout extending from femoral to posterior tibial pulse. Imagin03/14/2017: CT/Abdomen CTA AOR & RLE Runoff: Extensive severe diffuse aortoiliac , femoro-popliteal and intrapopliteal, occluded left SFA and mucus occlusion of flow in a severely diseased the renal artery demonstrates at lease 70-90% stenosis. Occluded left ENMANUEL and two vessel runoff provided by [employer] and PA however degree of disease and stenosis cannot be discerned due to calcification and hardening artifacts. enlarged prostate. Small right sided pleural effusion with severe right lung base atelectic changes vs pnemonic infiltrates. 03/14/2017: US/Duplex arterial legs, limited ultrasound: Extensive artheroscleoric disease with occlusion of the SFA. There is weak, monosphasic flow present within the popliteal and posterior tibial arteries. Vascular/ID: Severe Sepsis secondary to ischemic Left foot, acute While in [place] pt had an amputation site between 2nd and 3rd space of left foot, the wound is yellow with slough He is s/p left lower extremity angiogram/angioplasty and stent placement on 03/16 On Vanco and Zosyn as per ID, renally dosed - Vanco with dialysis Now with hypercoag state likely secondary to sepsis Blood cultures ordered, lactic acid, repeat labs Discussed with vascular, likely will need TMA MRI ordered to r/o osteo Hematology: Hypercoagulability, likely secondary to sepsis Fibrinogen, HIT panel ordered (previously on heparin drip d/tevin on 03/20) Heme consult Thrombocytopenia, likely secondary to sepsis Platelets 34, transfused 1 unit, repeat labs Bleeding risk Neuro: Acute Metabolic Encephalopathy likely secondary to sepsis Head CT ordered, shows left occipital lobe infarct, possible recent Discussed Head CT with Dr. Babcock, MRI of brain ordered On crestor, ASA 81mg Renal: ESRD, HD (on TThS) Pt unable to tolerate dialysis yesterday, dialysis today not completed as pt became agitated, restless Renal following' Cardiology: Subratherapeutic INR for Atrial Fibrillation, chronic Coumadin on hold, INR 5.1 Monitor INR in a.m. Hypertension, chronic but now with hypotension, will add parameters to BP meds Cardiology following Patient was unable to tolerate stress test secondary to restlessness, stress test cancelled by cardiology Hematology: Anemia, likely chronic Continue to monitor, transfuse if hmg <8 CBC in a.m. F.E.N. Fluids: 1.2 liter fluid restriction, tolerating PO Electrolytes: monitor Nutrition: renal diet Prophylaxis: GI: deferred DVT: supratherapeutic INR, hold coumadin Disposition: Requires inpatient hospitalization. Full code. Discharge plan is for SNF for continuation of dialysis once medicaid application is complete and patient is medially stable. ICU consulted for possible ICU admission.
--- NOTE | 2017-03-22 08:51 | OP ---
DATE OF OPERATION: 03/17/2017 PREOPERATIVE DIAGNOSIS: Left foot gangrene. POSTOPERATIVE DIAGNOSIS: Left foot gangrene. PROCEDURE PERFORMED: Left lower extremity angiogram, superficial femoral artery drug-coated balloon angioplasty, superficial femoral artery stent placement via retrograde puncture from the left popliteal artery. SURGEON: Faizan Tamayo DO ANESTHESIA: Fractional. BLOOD LOSS: 30 mL. FINDINGS: SFA occlusion from the origin. INDICATIONS: The patient is a 77-year-old male who came recently from [facility] after having a right below-knee amputation performed that had a left 2nd toe amputation which did not heal. The patient had rest pain in his left lower extremity. Family brought the patient to the emergency room and he was then consulted by Vascular Surgery. We did an antegrade angiogram on the patient the other day, showing that the SFA occluded from the origin, but due to the patient's abdominal aortic aneurysm and tortuosity of his iliac arteries, we could not complete the operation and proceed to go up and over and perform intervention. At that point it was decided that we would turn the patient over prone and stick the left popliteal artery and go in a retrograde fashion and open the occluded artery. DESCRIPTION OF PROCEDURE: The patient's family was consented for the procedure, understanding all risks, benefits and alternatives. He was then taken to the operating room. Once in the operating room, the patient was laid on the operating table in the prone manner. The area of the left popliteal fossa was prepped and draped in a sterile surgical manner. Under ultrasound guidance we visualized the left popliteal artery and 10 mL of lidocaine 1% was injected in the area. We then took our Micropuncture needle and punctured the left popliteal artery. Micropuncture wire was inserted. Micropuncture sheath was inserted, and an additional short 6-Yoruba sheath was inserted. We then placed a 0.035 stiff floppy guidewire up the artery, along with a Quick-Cross catheter, and we were able to get into [place] iliac artery. We then shot an angiogram through the Quick-Cross catheter, showing that we were in true lumen. The iliac arteries were patent, but there was no flow in the SFA. At this point we went ahead and placed a 0.035 stiff guidewire up into the aorta. Using a 5 x 200 balloon, we performed angioplasty of the entire SFA from the origin. We then shot angiogram, showing that parts of the SFA were open; however, some had recoil and were closed. We used two 6 x 100 balloons and a 6 x 8 balloon, and placed stents in the SFA that were ballooned in placed using a 5 x 200 balloon. Completion angiogram now showed that the SFA was patent from its origin. There was good brisk flow, and the main runoff into the foot was the posterior tibial artery. During the case, the patient was administered 5000 units of IV heparin. At this point, once the case was completed, we removed the sheath and pressure was held on the left popliteal fossa for 5 minutes. The patient received 20 mg of protamine as well. The patient had a strong, dopplerable PT pulse after the operation. The patient tolerated the procedure with no complications. The patient was transferred to the PACU in stable condition. FAIZAN TAMAYO DO NP/[id number]
[2017-03-22] MEDS: ASPIRIN 81 MG CHEWABLE TABLETS PO SCH (09:10)
[2017-03-22] MEDS: SUCRALFATE 1 GM/10 ML UNIT DOSE CUPS PO SCH ×2 (09:11→22:10)
[2017-03-22] MEDS: CARVEDILOL 3.125 MG TABLET (FP) PO SCH ×2 (09:11→22:11)
[2017-03-22] MEDS: RANITIDINE HCL 150 MG/10 ML UNIT-DOSE PO SCH (09:11)
[2017-03-22] MEDS: BUDESONIDE/FORMETEROL FUMARATE 80/4.5 mcg INHALER IH SCH ×2 (10:00→22:11)
[2017-03-22 10:25] LABS: MCH 27.6 pg (25.7-33.7); MCHC 32.8 g/dl (32.0-35.9); MEAN CELL VOLUME 84.2 fl (80-96); MEAN PLT VOLUME 7.7 fl (7.5-11.1); WHITE BLOOD COUNT 5.4 K/mm3 (4.0-10.0)
[2017-03-22 10:40] LABS: PLATELET COUNT 34 K/MM3 (134-434)
[2017-03-22] MEDS: morphine SULFATE 4 MG/ML VIAL IVPUSH PRN ×3 (10:58→23:30)
[2017-03-22 11:26] LABS: PROTHROMBIN TIME (PATIENT) 58.7 SEC (9.98-11.88)
[2017-03-22 11:36] LABS: INR 5.19 (0.82-1.09)
[2017-03-22 12:24] LABS: ANION GAP 15 (8-16); CALCIUM 7.6 mg/dL (8.5-10.1); CO2 27 mmol/L (21-32); CREATININE 3.2 mg/dL (0.7-1.3); GLUCOSE,RANDOM 141 mg/dL (74-106); LDH 188 U/L (87-241)
--- NOTE | 2017-03-22 14:28 | PN ---
Progress Note, Physician History of Present Illness: still not doing well patient with low bp leg stable still is a bit confused - Current Medication List Current Medications: Active Medications Alprazolam (Xanax -) 0.5 mg PO HS [facility] Last Admin: 03/21/17 22:13 Dose: 0.5 mg Aspirin (Asa -) 81 mg PO DAILY [facility] Last Admin: 03/22/17 09:10 Dose: Not Given Budesonide/Formoterol Fumarate (Symbicort 80/4.5mcg -) 2 puff IH BID [facility] Last Admin: 03/21/17 22:14 Dose: 2 puff Carvedilol (Coreg -) 3.125 mg PO BID [facility] Last Admin: 03/22/17 09:11 Dose: Not Given Collagenase (Santyl -) 1 applic TP DAILY [facility] Last Admin: 03/21/17 09:00 Dose: 1 applic Diphenhydramine HCl (Benadryl -) 25 mg PO Q6H PRN PRN Reason: FOR ITCHING Piperacillin/Tazobactam/Dextrose (Zosyn 2.25gm Ivpb (Premix)) 50 mls @ 100 mls/ hr IVPB Q8H-IV [facility] PRN Reason: Protocol Last Admin: 03/22/17 02:46 Dose: 100 mls/hr Morphine Sulfate (Morphine Sulfate) 2 mg IVPUSH Q6H PRN PRN Reason: PAIN Last Admin: 03/22/17 10:58 Dose: 2 mg Ranitidine HCl (Zantac Oral Solution -) 150 mg PO DAILY [facility] Last Admin: 03/22/17 09:11 Dose: Not Given Rosuvastatin Calcium (Crestor -) 10 mg PO HS [facility] Last Admin: 03/21/17 22:14 Dose: 10 mg Sucralfate (Carafate Oral Suspension -) 0.5 gm PO BID [facility] Last Admin: 03/22/17 09:11 Dose: Not Given Valsartan (Diovan -) 40 mg PO DAILY [facility] Last Admin: 03/22/17 09:11 Dose: Not Given - Objective Vital Signs: Vital Signs Temperature 97 F L 03/22/17 10:00 Pulse Rate 82 03/22/17 12:45 Respiratory Rate 18 03/22/17 12:45 Blood Pressure 110/66 03/22/17 12:45 O2 Sat by Pulse Oximetry (%) 97 03/22/17 09:00 Constitutional: Yes: Calm, Mild Distress Cardiovascular: Yes: Regular Rate and Rhythm Respiratory: Yes: Regular, CTA Bilaterally Gastrointestinal: Yes: Normal Bowel Sounds, Soft Musculoskeletal: Yes: Other Extremities: Yes: Other Wound/Incision: Yes: Dressing Dry and Intact, Other (some oozing noted) Neurological: Yes: Alert Psychiatric: Yes: Alert Labs: CBC, BMP 03/22/17 09:50 03/22/17 11:30 INR, PTT INR 5.19 (0.82-1.09) H* D 03/22/17 09:50 Assessment/Plan Problem List - Problems (1) Anemia Code(s): D64.9 - ANEMIA, UNSPECIFIED (2) Critical lower limb ischemia Code(s): I99.8 - OTHER DISORDER OF CIRCULATORY SYSTEM (3) ESRD (end stage renal disease) Code(s): N18.6 - END STAGE RENAL DISEASE (4) HTN (hypertension) Code(s): I10 - ESSENTIAL (PRIMARY) HYPERTENSION (5) Open wnd foot-complicated Code(s): S91.309A - UNSPECIFIED OPEN WOUND, UNSPECIFIED FOOT, INITIAL ENCOUNTER plan ct abx close watch on the patient if he is becoming septic will d/w surgery rest as per primary
[2017-03-22 14:54] LABS: ARTERIAL BLD GAS O2 SATURATION 90.2 % (90-98.9); ARTERIAL BLOOD GAS BASE EXCESS -0.2 meq/l (-2-2); ARTERIAL BLOOD GAS HCO3 22.9 meq/L (22-26); ARTERIAL BLOOD GAS PO2 63.9 mmHg (70-100); ARTERIAL BLOOD GAS pH 7.46 (7.35-7.45)
[2017-03-22 14:58] LABS: ART PUNCT SITE LEFT BRACHIAL; PT. ON O2? NO
--- NOTE | 2017-03-22 15:30 | CON.PULM ---
Consult Consult Specialty:: PULMONARY/CCM Referred by:: DARION Tomlin Reason for Consultation:: sepsis/ICU evaluation - History of Present Illness Chief Complaint: foot pain History of Present Illness: 77yo male with h/o PAD s/p R AKA, ESRD on HD, HTN, h/o DVT, atrial fibrillation on anticoagulation, severe LV systolic dysfunction, pulmonary HTN, recent left toe amputation who was admitted with increased swelling and pain of left foot. No fevers but has been experiencing discharge from the wound. Evaluated by vascular surgery noted to have gangrene, taken for LLE angiogram s/p SFA angioplasty and stent placement. Being treated for wound infection with vanco/ zosyn. Yesterday was hypotensive, unable to perform HD. Today's HD terminated prematurely due to agitation, received unit of platelets after being found thrombocytopenic. Pt agitated, unable to provide reliable history at this time. - History Source History Provided By: Medical Record Limitations to Obtaining History: Clinical Condition - Past Medical History Cardio/Vascular: Yes: Deep Vein Thrombosis, HTN, Other (PVD) Renal/: Yes: Renal Failure, Hemodialysis - Past Surgical History Past Surgical History: Yes: Amputation - Alcohol/Substance Use Hx Alcohol Use: No - Smoking History Smoking history: Former smoker Have you smoked in the past 12 months: No Home Medications - Allergies Allergies/Adverse Reactions: Allergies Allergy/AdvReac Type Severity Reaction Status Date / Time No Known Allergies Allergy Verified 03/14/17 01:05 - Home Medications Home Medications: Ambulatory Orders Alprazolam [Xanax] 0.25 mg PO HS 03/14/17 Cilostazol [Pletal -] 100 mg PO BID 03/14/17 Esomeprazole Magnesium 40 mg PO DAILY 03/14/17 Fluticasone/Salmeterol [Advair 250-50 Diskus] 1 each IH BID 03/14/17 Glucosamine Sulfate Dipot Chlr [Glucosamine Sulfate] 1,000 mg PO DAILY 03/14/17 Meloxicam [Mobic] 15 mg PO DAILY 03/14/17 Rosuvastatin Calcium [Crestor] 20 mg PO DAILY 03/14/17 Sucralfate [Carafate] 5 ml PO BID 03/14/17 Tramadol HCl [Ultram] 50 mg PO Q4H PRN 03/14/17 Review of Systems Unable to obtain ROS, reason: pt agitated Physical Exam Vital Sings: Vital Signs Temperature 97.3 F L 03/22/17 14:34 Pulse Rate 80 03/22/17 14:34 Respiratory Rate 18 03/22/17 14:34 Blood Pressure 104/49 03/22/17 14:34 O2 Sat by Pulse Oximetry (%) 97 03/22/17 09:00 Constitutional: Yes: Anxious Eyes: Yes: Conjunctiva Clear, EOM Intact HENT: Yes: Atraumatic, Normocephalic Neck: Yes: Supple, Trachea Midline Cardiovascular: Yes: Regular Rate and Rhythm Respiratory: Yes: Rhonchi (basilar) ...Clubbing: No Gastrointestinal: Yes: Normal Bowel Sounds, Soft. No: Tenderness Extremities: Yes: Other (R AKA) Edema: No Neurological: Yes: Other (agitated) Labs: CBC, BMP 03/22/17 09:50 03/22/17 11:30 ABG Results ABG pH 7.46 (7.35-7.45) H 03/22/17 14:24 ABG pCO2 at Pt Temp 33.1 mmHg (35-45) L 03/22/17 14:24 ABG pO2 at Pt Temp 63.9 mmHg (70-100) L 03/22/17 14:24 ABG HCO3 22.9 meq/L (22-26) 03/22/17 14:24 ABG O2 Sat (Measured) 90.2 % (90-98.9) 03/22/17 14:24 ABG O2 Content 11.4 % vol (15-22) L 03/22/17 14:24 ABG Base Excess -0.2 meq/l (-2-2) 03/22/17 14:24 Problem List - Problems (1) Open wnd foot-complicated Code(s): S91.309A - UNSPECIFIED OPEN WOUND, UNSPECIFIED FOOT, INITIAL ENCOUNTER (2) Peripheral arterial disease Code(s): I73.9 - PERIPHERAL VASCULAR DISEASE, UNSPECIFIED (3) Anemia Code(s): D64.9 - ANEMIA, UNSPECIFIED (4) Atrial fibrillation Code(s): I48.91 - UNSPECIFIED ATRIAL FIBRILLATION Qualifiers: Atrial fibrillation type: persistent Qualified Code(s): I48.1 - Persistent atrial fibrillation; I48.1 - Persistent atrial fibrillation; I48.1 - Persistent atrial fibrillation; I48.1 - Persistent atrial fibrillation (5) ESRD (end stage renal disease) Code(s): N18.6 - END STAGE RENAL DISEASE (6) HLD (hyperlipidemia) Code(s): E78.5 - HYPERLIPIDEMIA, UNSPECIFIED Qualifiers: Hyperlipidemia type: pure hypercholesterolemia Qualified Code(s): E78.00 - Pure hypercholesterolemia, unspecified; E78.00 - Pure hypercholesterolemia, unspecified; E78.00 - Pure hypercholesterolemia, unspecified; E78.0 - Pure hypercholesterolemia (7) HTN (hypertension) Code(s): I10 - ESSENTIAL (PRIMARY) HYPERTENSION Qualifiers: Hypertension type: essential hypertension Qualified Code(s): I10 - Essential (primary) hypertension; I10 - Essential (primary) hypertension; I10 - Essential (primary) hypertension (8) S/P AKA (above knee amputation) Code(s): Z89.619 - ACQUIRED ABSENCE OF UNSPECIFIED LEG ABOVE KNEE Qualifiers: Laterality: right Qualified Code(s): Z89.611 - Acquired absence of right leg above knee; Z89.611 - Acquired absence of right leg above knee; Z89.611 - Acquired absence of right leg above knee (9) Systolic dysfunction, left ventricle Code(s): I51.9 - HEART DISEASE, UNSPECIFIED Assessment/Plan Foot Wound Infection Peripheral Artery Disease ESRD on HD Atrial Fibrillation Severe LV Systolic Dysfunction Pulmonary HTN Supratherapeutic INR Thrombocytopenia AAA Liver Cirrhosis Lung Nodule s/p R AKA - continue antibiotics - wound care - likely will need further amputation - IVF boluses PRN if hypotensive - HD per renal - monitor CBC - transfuse PRBC, platelets - hold coumadin, target INR 2-3 - rate controlled - O2 as needed - outpt f/u of lung nodule - no indication for ICU at this time, will follow - please call if condition changes Thank you for this consult Alan Charles MD
--- NOTE | 2017-03-22 16:04 | PN ---
Progress Note (short form) - Note Progress Note: Vascular Surgery Pt seen and examined. Left forefoot with toe gangrene. Pt with palpable PT pulse in the foot after SFA angioplasty with stent placement. Will consult podiatry for left TMA Pt with many co-morbidities. spoke to family about left foot. Faizan Villa DO
--- NOTE | 2017-03-22 16:04 | CONSULT ---
Consult Consult Specialty:: Hematology - History of Present Illness History of Present Illness: 77 year old male with a significant past medical history of ESRD HD , atrial fib , hypertension, DVT, right AKA, s/p left 2nd digit amputation lower extremity. He presented to the ED on 03/14/2017 for critical ischemia of left lower extremity. Patient is Macedonian speaking only and family reports having increased swelling to his left lower extremity. Pt comes with right AKA and a left middle toe amputation that was performed 3 weeks ago in [facility], where pt has been living for the past several years. Currently patient appears to have an infection of the left foot with gangrene of 2nd toe and +3 edema of the entire lower leg, and a lateral small circular ulceration. vascular/Renal/ID are following the pt. I have reviewed some of the [facility] records with the help of daughter in law translation, most of them were vascular and HD paper work. on 03/01/2017 in [facility]: Hgb was 6.5 and platelets were written as normal ( no number reported)/ It was also mentioned that pt had stool occult positive in [facility] and was planned for EGD/Colonscopy. He was also diagnosed with AAA. - History Source History Provided By: Caregiver Limitations to Obtaining History: Clinical Condition - Past Medical History Cardio/Vascular: Yes: Deep Vein Thrombosis, HTN, Other (PVD) Renal/: Yes: Renal Failure, Hemodialysis - Past Surgical History Past Surgical History: Yes: Amputation - Alcohol/Substance Use Hx Alcohol Use: No - Smoking History Smoking history: Former smoker Have you smoked in the past 12 months: No Home Medications - Allergies Allergies/Adverse Reactions: Allergies Allergy/AdvReac Type Severity Reaction Status Date / Time No Known Allergies Allergy Verified 03/14/17 01:05 - Home Medications Home Medications: Ambulatory Orders Alprazolam [Xanax] 0.25 mg PO HS 03/14/17 Cilostazol [Pletal -] 100 mg PO BID 03/14/17 Esomeprazole Magnesium 40 mg PO DAILY 03/14/17 Fluticasone/Salmeterol [Advair 250-50 Diskus] 1 each IH BID 03/14/17 Glucosamine Sulfate Dipot Chlr [Glucosamine Sulfate] 1,000 mg PO DAILY 03/14/17 Meloxicam [Mobic] 15 mg PO DAILY 03/14/17 Rosuvastatin Calcium [Crestor] 20 mg PO DAILY 03/14/17 Sucralfate [Carafate] 5 ml PO BID 03/14/17 Tramadol HCl [Ultram] 50 mg PO Q4H PRN 03/14/17 Physical Exam Vital Signs: Vital Signs Temperature 97.3 F L 03/22/17 14:34 Pulse Rate 80 03/22/17 14:34 Respiratory Rate 18 03/22/17 14:34 Blood Pressure 104/49 03/22/17 14:34 O2 Sat by Pulse Oximetry (%) 97 03/22/17 09:00 Constitutional: Yes: Mild Distress, Other (Pt was midly tachypenic) HENT: Yes: Atraumatic, Normocephalic Neck: Yes: Supple Cardiovascular: Yes: WNL Respiratory: Yes: Tachypnea Extremities: Yes: Other (dressing LLE) Neurological: Yes: Alert, Other (awake, oriented to person, not to time) Labs: CBC, BMP 03/22/17 09:50 03/22/17 11:30 Imaging - Results Ultrasound: Report Reviewed Assessment/Plan Coagulopathy ( prolonged PTT/PT/Thrombocytopenia) gangrene Sepsis from gangrene ESRD Afib was on heparin AMS Hypotension AAA Liver Cirrhosis Lung Nodule s/p R AKA -patient clinical picture suggestive of coaugulopathy likely from infection. Fibrinogen pending. -ptt is still elevated two days after stopping heparin. -as no evidence of bleeding now , will let the INR drift down, 2-3 goal. If trending up will need to reverse -pt may have cirrhosis ( hep B positive, but liver fn presently preserved), when more stable will need US abdomen to r/o Hepato-splenomegaly. -r/o MADDI -not TTP -s/p PRBC/Platelet transfusion today -will need FFP/Platelets/Vit K prior to procedure when planned -Vascular f/u -ID f/u -cardiology f.u noted -will need GI w.u at some point due to mentioned hx in ana and ongoing anemia. -repeat labs -close monitoring -discussed in detail >40min with primary GRAPE CRUSHER, RN, ID consult and also the daughter in law of the pt.
--- NOTE | 2017-03-22 16:16 | PN ---
Progress Note (short form) - Note Progress Note: Renal follow up for ESRD on HD Pt seen and examined during dialysis pt is very restless during dialysis reports having pain in his lower back/sacrum was given IV morphine by floor nurse pt not sitting still causing pressure alams from HD UF 1L only to be taken off machine after plt transfusion Vital Signs Temperature 97.3 F L 03/22/17 14:34 Pulse Rate 80 03/22/17 14:34 Respiratory Rate 18 03/22/17 14:34 Blood Pressure 104/49 03/22/17 14:34 O2 Sat by Pulse Oximetry (%) 97 03/22/17 09:00 Intake & Output 03/20/17 03/20/17 03/21/17 03/22/17 00:59 23:59 23:59 23:59 Intake Total 430 Output Total 0 Balance 430 Weight 138 lb 5 oz 140 lb 5 oz Mild ditress from pain, restless pt refused physical exam CBC, BMP 03/22/17 09:50 03/22/17 11:30 Current Medications Alprazolam (Xanax -) 0.5 mg PO HS OTIS Last Admin: 03/21/17 22:13 Dose: 0.5 mg Aspirin (Asa -) 81 mg PO DAILY [facility] Last Admin: 03/22/17 09:10 Dose: Not Given Budesonide/Formoterol Fumarate (Symbicort 80/4.5mcg -) 2 puff IH BID [facility] Last Admin: 03/21/17 22:14 Dose: 2 puff Carvedilol (Coreg -) 3.125 mg PO BID OT[facility] Last Admin: 03/22/17 09:11 Dose: Not Given Collagenase (Santyl -) 1 applic TP DAILY [facility] Last Admin: 03/21/17 09:00 Dose: 1 applic Diphenhydramine HCl (Benadryl -) 25 mg PO Q6H PRN PRN Reason: FOR ITCHING Piperacillin/Tazobactam/Dextrose (Zosyn 2.25gm Ivpb (Premix)) 50 mls @ 100 mls/ hr IVPB Q8H-IV OTIS PRN Reason: Protocol Last Admin: 03/22/17 02:46 Dose: 100 mls/hr Morphine Sulfate (Morphine Sulfate) 2 mg IVPUSH Q6H PRN PRN Reason: PAIN Last Admin: 03/22/17 10:58 Dose: 2 mg Ranitidine HCl (Zantac Oral Solution -) 150 mg PO DAILY [facility] Last Admin: 03/22/17 09:11 Dose: Not Given Rosuvastatin Calcium (Crestor -) 10 mg PO HS [facility] Last Admin: 03/21/17 22:14 Dose: 10 mg Sucralfate (Carafate Oral Suspension -) 0.5 gm PO BID [facility] Last Admin: 03/22/17 09:11 Dose: Not Given Valsartan (Diovan -) 40 mg PO DAILY [facility] Last Admin: 03/22/17 09:11 Dose: Not Given 77 year old gentleman with PMhx of ESRD on HD (TTS), Hypertension, DVT, PVD s/p right AKA and left toe amputation who presented to the ED with complaints of pain in his left foot and admitted fro soft tissue infection of the foot with concern for worsening ischemic disease. #ESRD on HD pt taken off dialysis early b/c of restlessness and increased risk for infiltration with low plt count BMP was drawn mid dialysis and thus not accurate, will have repeat drawn via periphreal draw #Wound/Ischemia of left LE s/p angioplasty and stenting continue Abx as per ID #Acute on Chronic Anemia likely due to infection but need to r/o blood loss to get 1 unit prbc transfusion on the floor s/p plt transfusion on HD Heme consult Thank you Raghu Boogie DO Problem List - Problems (1) Anemia Code(s): D64.9 - ANEMIA, UNSPECIFIED (2) Critical lower limb ischemia Code(s): I99.8 - OTHER DISORDER OF CIRCULATORY SYSTEM (3) ESRD (end stage renal disease) Code(s): N18.6 - END STAGE RENAL DISEASE (4) HTN (hypertension) Code(s): I10 - ESSENTIAL (PRIMARY) HYPERTENSION Qualifiers: Qualified Code(s): I10 - Essential (primary) hypertension; I10 - Essential (primary) hypertension; I10 - Essential (primary) hypertension (5) Open wnd foot-complicated Code(s): S91.309A - UNSPECIFIED OPEN WOUND, UNSPECIFIED FOOT, INITIAL ENCOUNTER
--- NOTE | 2017-03-22 16:54 | PN ---
Progress Note (short form) - Note Progress Note: VAscular Surgery Once pt is optimized, will do TMA on left foot. Faizan Villa DO
--- NOTE | 2017-03-22 17:20 | PN ---
Progress Note, Physician Chief Complaint: Currently being dialyzed S/P SFA angioplasty and stent Elevated INR History of Present Illness: Patient was seen and examined. Awake. Chart was reviewed Denies chest pain or SOB, but restless - Current Medication List Current Medications: Active Medications Alprazolam (Xanax -) 0.5 mg PO HS [facility] Last Admin: 03/21/17 22:13 Dose: 0.5 mg Aspirin (Asa -) 81 mg PO DAILY [facility] Last Admin: 03/22/17 09:10 Dose: Not Given Budesonide/Formoterol Fumarate (Symbicort 80/4.5mcg -) 2 puff IH BID [facility] Last Admin: 03/21/17 22:14 Dose: 2 puff Carvedilol (Coreg -) 3.125 mg PO BID [facility] Last Admin: 03/22/17 09:11 Dose: Not Given Collagenase (Santyl -) 1 applic TP DAILY [facility] Last Admin: 03/21/17 09:00 Dose: 1 applic Diphenhydramine HCl (Benadryl -) 25 mg PO Q6H PRN PRN Reason: FOR ITCHING Piperacillin/Tazobactam/Dextrose (Zosyn 2.25gm Ivpb (Premix)) 50 mls @ 100 mls/ hr IVPB Q8H-IV [facility] PRN Reason: Protocol Last Admin: 03/22/17 02:46 Dose: 100 mls/hr Morphine Sulfate (Morphine Sulfate) 2 mg IVPUSH Q6H PRN PRN Reason: PAIN Last Admin: 03/22/17 10:58 Dose: 2 mg Ranitidine HCl (Zantac Oral Solution -) 150 mg PO DAILY [facility] Last Admin: 03/22/17 09:11 Dose: Not Given Rosuvastatin Calcium (Crestor -) 10 mg PO HS [facility] Last Admin: 03/21/17 22:14 Dose: 10 mg Sucralfate (Carafate Oral Suspension -) 0.5 gm PO BID [facility] Last Admin: 03/22/17 09:11 Dose: Not Given Valsartan (Diovan -) 40 mg PO DAILY [facility] Last Admin: 03/22/17 09:11 Dose: Not Given - Objective Vital Signs: Vital Signs Temperature 97.3 F L 03/22/17 14:34 Pulse Rate 80 03/22/17 14:34 Respiratory Rate 18 03/22/17 14:34 Blood Pressure 104/49 03/22/17 14:34 O2 Sat by Pulse Oximetry (%) 97 03/22/17 09:00 Cardiovascular: Yes: Pulse Irregular, Murmur (Soft SM), S1, S2 Respiratory: Yes: Diminished Gastrointestinal: Yes: Normal Bowel Sounds, Soft. No: Tenderness Extremities: Yes: Amputation Edema: No Additional Findings/Remarks: - Review of Systems Constitutional: denies: Chills, Fever Cardiovascular: (-) Chest Pain, denies: Palpitations, (-) Shortness of Breath Respiratory: (-) Cough, denies: Hemoptysis, Orthopnea, PND,(-) SOB, SOB on Exertion Gastrointestinal: denies: Abdominal Pain, Constipation, Diarrhea, (+) Melena, Nausea, Rectal Bleeding, (-) Vomiting Genitourinary: denies: Flank Pain, Hematuria Musculoskeletal: denies: Joint Pain Neurological: denies: Dizziness, Headache, Seizure, (-) Syncope Labs: CBC, BMP 03/22/17 09:50 INR, PTT INR 5.19 (0.82-1.09) H* D 03/22/17 09:50 Problem List - Problems (1) Anemia Code(s): D64.9 - ANEMIA, UNSPECIFIED (2) Critical lower limb ischemia Code(s): I99.8 - OTHER DISORDER OF CIRCULATORY SYSTEM (3) ESRD (end stage renal disease) Code(s): N18.6 - END STAGE RENAL DISEASE (4) HLD (hyperlipidemia) Code(s): E78.5 - HYPERLIPIDEMIA, UNSPECIFIED Qualifiers: Hyperlipidemia type: pure hypercholesterolemia Qualified Code(s): E78.00 - Pure hypercholesterolemia, unspecified; E78.00 - Pure hypercholesterolemia, unspecified; E78.00 - Pure hypercholesterolemia, unspecified; E78.0 - Pure hypercholesterolemia (5) HTN (hypertension) Code(s): I10 - ESSENTIAL (PRIMARY) HYPERTENSION Qualifiers: Hypertension type: essential hypertension Qualified Code(s): I10 - Essential (primary) hypertension; I10 - Essential (primary) hypertension; I10 - Essential (primary) hypertension (6) S/P AKA (above knee amputation) Code(s): Z89.619 - ACQUIRED ABSENCE OF UNSPECIFIED LEG ABOVE KNEE Qualifiers: Laterality: right Qualified Code(s): Z89.611 - Acquired absence of right leg above knee; Z89.611 - Acquired absence of right leg above knee; Z89.611 - Acquired absence of right leg above knee (7) Amputated toe of left foot Code(s): Z89.422 - ACQUIRED ABSENCE OF OTHER LEFT TOE(S) (8) Atrial fibrillation Code(s): I48.91 - UNSPECIFIED ATRIAL FIBRILLATION Qualifiers: Atrial fibrillation type: persistent Qualified Code(s): I48.1 - Persistent atrial fibrillation; I48.1 - Persistent atrial fibrillation; I48.1 - Persistent atrial fibrillation; I48.1 - Persistent atrial fibrillation (9) Cardiomyopathy Code(s): I42.9 - CARDIOMYOPATHY, UNSPECIFIED Qualifiers: Cardiomyopathy type: unspecified Qualified Code(s): I42.9 - Cardiomyopathy, unspecified; I42.9 - Cardiomyopathy, unspecified; I42.9 - Cardiomyopathy, unspecified; I42.9 - Cardiomyopathy, unspecified (10) Systolic dysfunction, left ventricle Code(s): I51.9 - HEART DISEASE, UNSPECIFIED Assessment/Plan 1. PAD S/P right AKA and left toe amputation, occluded left SFA and AAA (4.6 cm ) s/p angiography s/p angioplasty and SFA stent 2. Renal artery disease with ESRD on HD 3. HTN/HCVD 4. Persistent AF ([id number] score of 4) 5. History of DVT 6. Severe LV systolic dysfunction/cardiomyopathy 7. Severe tricuspid valve regurgitation with pulmonary hypertension 8. S/P mechanical fall 9. Supratherapeutic INR and thrombocytopenia PLAN: 1. Optimize medical therapy. Nuclear perfusion imaging was cancelled yesterday due to technically not feasible 2. Continue with HD 3. Monitor INR and Plt level. Hematology input noted. Warfarin held 4. Continue Carvedilol and up-titrate. 6. Continue statin therapy and check lipid panel 7. AAA also needs to be followed as outpatient Further plans are to follow. Ion Landrum MD
[2017-03-22] MEDS: COLLAGENASE CLOSTRIDIUM HIST. 30 GRAMS TUBE TP SCH (17:36)
[2017-03-22 17:42] LABS: ANION GAP 19 (8-16); CALCIUM 7.5 mg/dL (8.5-10.1); CO2 23 mmol/L (21-32); CREATININE 6.4 mg/dL (0.7-1.3); GLUCOSE,RANDOM 66 mg/dL (74-106)
[2017-03-22] MEDS ORDERED: WARFARIN NA 2.5 MG TABLET (FP) PO SCH (18:00)
[2017-03-22] MEDS ORDERED: MAGNESIUM HYDROX 2400MG/30ML ORAL SUSPENSION 30 ML CUP PO ONE (20:35)
[2017-03-22] MEDS ORDERED: PT OWN MED DRAWER 7, Y5N ONE (22:08)
[2017-03-22] MEDS: DOCUSATE SODIUM 100 MG CAPSULE (FP) PO SCH (22:11)
[2017-03-22] MEDS: ALPRAZolam 0.25 MG TABLET PO SCH (22:11)
[2017-03-22] MEDS: ROSUVASTATIN CA 10 MG TABLET (FP) PO SCH (22:12)
[2017-03-23] MEDS: PIPERACILLIN/TAZOB 2.25 GM 50 ML IVPB SCH ×3 (02:05→17:48)
[2017-03-23 07:56] LABS: INR 2.82 (0.82-1.09); PROTHROMBIN TIME (PATIENT) 31.9 SEC (9.98-11.88)
[2017-03-23 07:59] LABS: ACTIVATED PTT 63.2 SECONDS (26.9-34.4)
--- NOTE | 2017-03-23 08:26 | PN ---
Progress Note (short form) - Note Progress Note: currently asymptomatic. denies CP, SOB, fever, chills, N/V/C/D, dizzyness Current Medications Generic Name Dose Route Start Last Admin Trade Name Freq PRN Reason Stop Dose Admin Alprazolam 0.5 mg 03/20/17 22:00 03/22/17 22:11 Xanax - PO 0.5 mg HS OTIS Administration Aspirin 81 mg 03/18/17 10:00 03/22/17 09:10 Asa - PO Not Given DAILY [facility] Budesonide/Formoterol Fumarate 2 puff 03/17/17 22:00 03/22/17 22:11 Symbicort 80/4.5mcg - IH 2 puff BID OT[facility] Administration Carvedilol 3.125 mg 03/21/17 15:27 03/22/17 22:11 Coreg - PO 3.125 mg BID [facility] Administration Collagenase 1 applic 03/18/17 11:00 03/22/17 17:36 Santyl - TP 1 applic DAILY [facility] Administration Diphenhydramine HCl 25 mg 03/17/17 13:24 Benadryl - PO Q6H PRN FOR ITCHING Docusate Sodium 300 mg 03/22/17 22:00 03/22/17 22:11 Colace - PO 300 mg HS [facility] Administration Piperacillin/Tazobactam/Dextrose 50 mls @ 100 mls/hr 03/17/17 15:15 03/23/17 02:05 Zosyn 2.25gm Ivpb (Premix) IVPB 100 mls/hr Q8H-IV [facility] Administration Protocol Morphine Sulfate 2 mg 03/21/17 15:12 03/22/17 23:30 Morphine Sulfate IVPUSH 2 mg Q6H PRN Administration PAIN Ranitidine HCl 150 mg 03/18/17 10:00 03/22/17 09:11 Zantac Oral Solution - PO Not Given DAILY [facility] Rosuvastatin Calcium 10 mg 03/17/17 22:00 03/22/17 22:12 Crestor - PO 10 mg HS [facility] Administration Sucralfate 0.5 gm 03/17/17 22:00 03/22/17 22:10 Carafate Oral Suspension - PO 0.5 gm BID [facility] Administration Valsartan 40 mg 03/21/17 15:28 03/22/17 09:11 Diovan - PO Not Given DAILY [facility] Last Vital Signs Temp Pulse Resp BP Pulse Ox 98.1 F 74 18 90/44 94 L 03/23/17 01:55 03/23/17 01:55 03/23/17 01:55 03/23/17 01:55 03/22/17 21:00 General NAD CV S1 S2 RRR +murmur Lungs CTA B/L no wheezing/murmur/rales Abdomen soft NT/ND Extremities +palpable thrill LUE, AKA RLE, LLE foot wrapped (refused undressing foot) 2+ pitting edema LLE CBCD WBC 5.6 K/mm3 (4.0-10.0) 03/23/17 06:20 RBC 3.71 M/mm3 (4.00-5.60) L D 03/23/17 06:20 Hgb 10.2 GM/dL (11.7-16.9) L D 03/23/17 06:20 Hct 31.2 % (35.4-49) L D 03/23/17 06:20 MCV 83.9 fl (80-96) 03/23/17 06:20 MCHC 32.9 g/dl (32.0-35.9) 03/23/17 06:20 RDW 15.8 % (11.9-15.9) 03/23/17 06:20 Plt Count 47 K/MM3 (134-434) L D 03/23/17 06:20 MPV 8.2 fl (7.5-11.1) 03/23/17 06:20 A&P: 77 year old male with a significant past medical history of ESRD HD (T,,), atrial fib, hypertension, DVT, right AKA, s/p left 2nd digit amputation lower extremity. He presented to the ED on 03/14/2017 for critical ischemia of left lower extremity. Patient is Khmer speaking only and family reports having increased swelling to his left lower extremity. Pt comes with right AKA and a left middle toe amputation that was performed 3 weeks ago in [facility], where pt has been living for the past several years. Patient has medical records from [facility] in his file. 1. Severe sepsis due to ischemic L foot- s/p SFA angio with stents on 03/17. On zosyn. was being given Vanco with HD only but last dose received 10/29. check vanco level. plan is for L foot TMA when medically optimized. MRI ordered to r/ o OM. BCx negative. Vascular surgery and ID on board. 2. Coagulopathic- due to sepsis vs undiagnosed cirrhosis. now off hep ggt. last dose of coumadin received last week. INR trending down, now in between goal. will cont to hold coumadin at this time in light of pending surgery. was on it due to DVT in the past?. will need to discuss with hematology if necessary to still treat. obtain u/s abdomen to r/o hepatospleenomegaly. HIIT pending. 3. Anemia of Chronic disease- s/p 2 PRBC yesterday. Hgb responded appropriately. no signs of active bleeding. Txn for Hgb <8. cont epo with HD. 4. Thrombocytopenia- s/p 1 unit plt. trending up. no signs of bleeding. 5. Hypotension- could be due to morphine vs during HD. will d/c valsartan. would not want to stop beta audrey abruptly with severe LV dysfunction if possible he can tolerate. will monitor for now 6. Acute metabolic encephalopathy- likely due to sepsis. Head CT with occipital infarct. MRI brain done and appears to be chronic with generalized volume loss. Neuro consulted. on asa, statin 7. Severe LV systolic dysfunction- was planned for NMST yesterday however cancelled due to hypotension. would benefit from ischemia workup however when medically optimzied. will patricia need risk stratification prior to TMA. cardio on board 8. ESRD on HD- did not complete HD yesterday due to agitation. HD per nephro 9. DVT ppx- elevated INR. can not place SCD due to PVD and AKA Visit type - Emergency Visit Emergency Visit: Yes ED Registration Date: 03/14/17 Care time: The patient presented to the Emergency Department on the above date and was hospitalized for further evaluation of their emergent condition. - New Patient This patient is new to me today: Yes Date on this admission: 03/23/17 - Critical Care Critical Care patient: No - Discharge Referral Referred to [facility] No
[2017-03-23 08:31] LABS: MCH 27.6 pg (25.7-33.7); MCHC 32.9 g/dl (32.0-35.9); MEAN CELL VOLUME 83.9 fl (80-96); MEAN PLT VOLUME 8.2 fl (7.5-11.1); NEUTROPHILS 72.4 % (42.8-82.8); PLATELET COUNT 47 K/MM3 (134-434); RDW 15.8 % (11.9-15.9); WHITE BLOOD COUNT 5.6 K/mm3 (4.0-10.0)
[2017-03-23 09:23] LABS: ALK PHOS 84 U/L (45-117); ANION GAP 17 (8-16); BILIRUBIN,TOTAL 0.8 mg/dL (0.2-1.0); CALCIUM 7.5 mg/dL (8.5-10.1); CO2 24 mmol/L (21-32); CREATININE 6.9 mg/dL (0.7-1.3); GLUCOSE,RANDOM 67 mg/dL (74-106); LDH 190 U/L (87-241); MAGNESIUM 1.8 mg/dL (1.8-2.4); PHOSPHOROUS 4.6 mg/dL (2.5-4.9); SGOT/AST 14 U/L (15-37); SGPT/ALT 7 U/L (12-78); TOT PROT 4.8 g/dl (6.4-8.2)
[2017-03-23] MEDS ORDERED: PT OWN MED DRAWER 7, Y5N ONE (09:53)
[2017-03-23] MEDS: CARVEDILOL 3.125 MG TABLET (FP) PO SCH ×2 (10:04→21:56)
[2017-03-23] MEDS: ASPIRIN 81 MG CHEWABLE TABLETS PO SCH (10:04)
[2017-03-23] MEDS: SUCRALFATE 1 GM/10 ML UNIT DOSE CUPS PO SCH ×2 (10:04→21:56)
[2017-03-23] MEDS: BUDESONIDE/FORMETEROL FUMARATE 80/4.5 mcg INHALER IH SCH ×2 (10:05→22:04)
[2017-03-23] MEDS: COLLAGENASE CLOSTRIDIUM HIST. 30 GRAMS TUBE TP SCH (10:06)
[2017-03-23] MEDS: RANITIDINE HCL 150 MG/10 ML UNIT-DOSE PO SCH (10:08)
[2017-03-23] MEDS: morphine SULFATE 4 MG/ML VIAL IVPUSH PRN ×2 (11:17→21:55)
--- NOTE | 2017-03-23 12:10 | PN ---
Progress Note, Physician History of Present Illness: c/o sacral decubitus pain. Diovan held due to hypotension. - Current Medication List Current Medications: Active Medications Alprazolam (Xanax -) 0.5 mg PO HS [facility] Last Admin: 03/22/17 22:11 Dose: 0.5 mg Aspirin (Asa -) 81 mg PO DAILY [facility] Last Admin: 03/23/17 10:04 Dose: 81 mg Budesonide/Formoterol Fumarate (Symbicort 80/4.5mcg -) 2 puff IH BID [facility] Last Admin: 03/23/17 10:05 Dose: 2 puff Carvedilol (Coreg -) 3.125 mg PO BID [facility] Last Admin: 03/23/17 10:04 Dose: 3.125 mg Collagenase (Santyl -) 1 applic TP DAILY [facility] Last Admin: 03/23/17 10:06 Dose: 1 applic Diphenhydramine HCl (Benadryl -) 25 mg PO Q6H PRN PRN Reason: FOR ITCHING Docusate Sodium (Colace -) 300 mg PO [facility] Last Admin: 03/22/17 22:11 Dose: 300 mg Piperacillin/Tazobactam/Dextrose (Zosyn 2.25gm Ivpb (Premix)) 50 mls @ 100 mls/ hr IVPB Q8H-IV [facility] PRN Reason: Protocol Last Admin: 03/23/17 10:08 Dose: 100 mls/hr Morphine Sulfate (Morphine Sulfate) 2 mg IVPUSH Q6H PRN PRN Reason: PAIN Last Admin: 03/23/17 11:17 Dose: 2 mg Ranitidine HCl (Zantac Oral Solution -) 150 mg PO DAILY [facility] Last Admin: 03/23/17 10:08 Dose: 150 mg Rosuvastatin Calcium (Crestor -) 10 mg PO HS [facility] Last Admin: 03/22/17 22:12 Dose: 10 mg Sucralfate (Carafate Oral Suspension -) 0.5 gm PO BID [facility] Last Admin: 03/23/17 10:04 Dose: 0.5 gm - Objective Vital Signs: Vital Signs Temperature 98.1 F 03/23/17 01:55 Pulse Rate 74 03/23/17 01:55 Respiratory Rate 18 03/23/17 01:55 Blood Pressure 90/44 03/23/17 01:55 O2 Sat by Pulse Oximetry (%) 94 L 03/22/17 21:00 Constitutional: Yes: Mild Distress, Thin Neck: Yes: Supple Cardiovascular: Yes: Pulse Irregular, Murmur (2/6 SM) Respiratory: Yes: Regular, Diminished Gastrointestinal: Yes: Normal Bowel Sounds, Soft Edema: No Labs: CBC, BMP 03/23/17 06:20 03/23/17 06:20 INR, PTT INR 2.82 (0.82-1.09) H D 03/23/17 06:20 Fibrinogen 394.0 mg/dL (238-498) 03/23/17 06:20 Problem List - Problems (1) Critical lower limb ischemia Code(s): I99.8 - OTHER DISORDER OF CIRCULATORY SYSTEM (2) HLD (hyperlipidemia) Code(s): E78.5 - HYPERLIPIDEMIA, UNSPECIFIED Qualifiers: Hyperlipidemia type: pure hypercholesterolemia Qualified Code(s): E78.00 - Pure hypercholesterolemia, unspecified (3) HTN (hypertension) Code(s): I10 - ESSENTIAL (PRIMARY) HYPERTENSION Qualifiers: Hypertension type: essential hypertension Qualified Code(s): I10 - Essential (primary) hypertension (4) ESRD (end stage renal disease) Code(s): N18.6 - END STAGE RENAL DISEASE (5) Atrial fibrillation Code(s): I48.91 - UNSPECIFIED ATRIAL FIBRILLATION Qualifiers: Atrial fibrillation type: persistent Qualified Code(s): I48.1 - Persistent atrial fibrillation (6) Amputated toe of left foot Code(s): Z89.422 - ACQUIRED ABSENCE OF OTHER LEFT TOE(S) (7) S/P AKA (above knee amputation) Code(s): Z89.619 - ACQUIRED ABSENCE OF UNSPECIFIED LEG ABOVE KNEE Qualifiers: Laterality: right Qualified Code(s): Z89.611 - Acquired absence of right leg above knee (8) Cardiomyopathy Code(s): I42.9 - CARDIOMYOPATHY, UNSPECIFIED Qualifiers: Cardiomyopathy type: unspecified Qualified Code(s): I42.9 - Cardiomyopathy , unspecified (9) Systolic dysfunction, left ventricle Code(s): I51.9 - HEART DISEASE, UNSPECIFIED (10) Anticoagulant long-term use Code(s): Z79.01 - CUSTODIAL (CURRENT) USE OF ANTICOAGULANTS (11) Thrombocytopenia Code(s): D69.6 - THROMBOCYTOPENIA, UNSPECIFIED (12) Peripheral arterial disease Code(s): I73.9 - PERIPHERAL VASCULAR DISEASE, UNSPECIFIED Assessment/Plan Echocardiography reveals severely reduced LV systolic function, severe TR, moderate pulmonary HTN, mild AR, severely dilated LA and RA 1. PAD S/P right AKA and left toe amputation, occluded left SFA and AAA (4.6 cm ) s/p angiography s/p angioplasty and SFA stent, planned for TMA left foot 2. Renal artery disease with ESRD on HD 3. HTN/HCVD 4. Persistent AF ([id number] score of 4) 5. History of DVT 6. Severe LV systolic dysfunction/cardiomyopathy 7. Severe tricuspid valve regurgitation with pulmonary hypertension 8. S/P mechanical fall 9. Coagulopathy and thrombocytopenia due to infection PLAN: 1. Optimize medical therapy. Nuclear perfusion imaging was cancelled yesterday due to technically not feasible 2. Continue with HD 3. Monitor INR and Plt level. Hematology input noted. Warfarin held pre-op, on ASA 81 qd meantime 4. Continue Carvedilol 3.125 bid and up-titrate. 6. Decrease Crestor 5 qd given LDL=32 at goal 7. AAA also needs to be followed as outpatient
--- NOTE | 2017-03-23 13:22 | PN ---
Progress Note (short form) - Note Progress Note: Vascular Surgery Will do tma vs toe amputations once pt is stable from a medical and cardiology standpoint. will be on stand by. Faizan Villa dO
--- NOTE | 2017-03-23 15:40 | PN ---
Progress Note (short form) - Note Progress Note: PULMONARY LYING SUPINE/NO OBVIOUS RESP DIFFICULTY VSS/AFEBRILE/84/45 BP ANICTERIC SCATTERED MINIMAL POSTERIOR RHONCHI S1S2 SOFT/NONTENDER RIGHT AKA/LEFT FOOT BANDAGED LABS/MEDS/NOTES/IMAGING/MICRO REVIEWED Foot Wound Infection Peripheral Artery Disease ESRD on HD Atrial Fibrillation Severe LV Systolic Dysfunction Pulmonary HTN therapeutic INR Thrombocytopenia AAA Liver Cirrhosis Lung Nodule s/p R AKA - continue antibiotics - wound care - likely will need further amputation - IVF boluses PRN if hypotensive - HD per renal - monitor CBC - transfuse PRBC, platelets as needed - O2 as needed - outpt f/u of lung nodule - please call PRN Cesar MEEK MD
--- NOTE | 2017-03-23 17:53 | PN ---
Progress Note (short form) - Note Progress Note: Renal follow up for ESRD on HD Pt seen and examined at the bedside Vital Signs Temperature 97.3 F L 03/22/17 14:34 Pulse Rate 80 03/22/17 14:34 Respiratory Rate 18 03/22/17 14:34 Blood Pressure 104/49 03/22/17 14:34 O2 Sat by Pulse Oximetry (%) 97 03/22/17 09:00 Intake & Output 03/20/17 03/20/17 03/21/17 03/22/17 00:59 23:59 23:59 23:59 Intake Total 430 Output Total 0 Balance 430 Weight 138 lb 5 oz 140 lb 5 oz NAD RRR CTA soft NT/ND Sacral dressing in place No LE kumar foot in dressing CBC, BMP 03/23/17 06:20 03/23/17 06:20 Current Medications Alprazolam (Xanax -) 0.5 mg PO HS [facility] Last Admin: 03/22/17 22:11 Dose: 0.5 mg Aspirin (Asa -) 81 mg PO DAILY [facility] Last Admin: 03/23/17 10:04 Dose: 81 mg Budesonide/Formoterol Fumarate (Symbicort 80/4.5mcg -) 2 puff IH BID [facility] Last Admin: 03/23/17 10:05 Dose: 2 puff Carvedilol (Coreg -) 3.125 mg PO BID [facility] Last Admin: 03/23/17 10:04 Dose: 3.125 mg Collagenase (Santyl -) 1 applic TP DAILY [facility] Last Admin: 03/23/17 10:06 Dose: 1 applic Diphenhydramine HCl (Benadryl -) 25 mg PO Q6H PRN PRN Reason: FOR ITCHING Docusate Sodium (Colace -) 300 mg PO HS [facility] Last Admin: 03/22/17 22:11 Dose: 300 mg Fentanyl (Duragesic 25mcg Patch -) 1 patch TD Q72H [facility] Stop: 03/30/17 17:49 Piperacillin/Tazobactam/Dextrose (Zosyn 2.25gm Ivpb (Premix)) 50 mls @ 100 mls/ hr IVPB Q8H-IV [facility] PRN Reason: Protocol Last Admin: 03/23/17 17:48 Dose: 100 mls/hr Miscellaneous (Duragesic Patch Waste) 1 each [facility] PRN PRN PRN Reason: PAIN Morphine Sulfate (Morphine Sulfate) 2 mg IVPUSH Q6H PRN PRN Reason: PAIN Last Admin: 03/23/17 11:17 Dose: 2 mg Ranitidine HCl (Zantac Oral Solution -) 150 mg PO DAILY [facility] Last Admin: 03/23/17 10:08 Dose: 150 mg Rosuvastatin Calcium (Crestor -) 5 mg PO HS [facility] Sucralfate (Carafate Oral Suspension -) 0.5 gm PO BID [facility] Last Admin: 03/23/17 10:04 Dose: 0.5 gm 77 year old gentleman with PMhx of ESRD on HD (TTS), Hypertension, DVT, PVD s/p right AKA and left toe amputation who presented to the ED with complaints of pain in his left foot and admitted fro soft tissue infection of the foot with concern for worsening ischemic disease. #ESRD on HD s/p abridged dialysis yesterday no acute indication for treatment today next HD tomorrow Renal diet dose all meds for intermittent HD #Wound/Ischemia of left LE s/p angioplasty and stenting continue Abx as per ID #Acute on Chronic Anemia likely due to infection but need to r/o blood loss s/p transfusion wth good response will continue IVANIA with HD #Sacral stage 1 decubitis continue supportive care fentayl patch Thank you Raghu Boogie DO Problem List - Problems (1) Critical lower limb ischemia Code(s): I99.8 - OTHER DISORDER OF CIRCULATORY SYSTEM (2) Open wnd foot-complicated Code(s): S91.309A - UNSPECIFIED OPEN WOUND, UNSPECIFIED FOOT, INITIAL ENCOUNTER (3) HTN (hypertension) Code(s): I10 - ESSENTIAL (PRIMARY) HYPERTENSION Qualifiers: Hypertension type: essential hypertension Qualified Code(s): I10 - Essential (primary) hypertension (4) ESRD (end stage renal disease) Code(s): N18.6 - END STAGE RENAL DISEASE (5) Anemia Code(s): D64.9 - ANEMIA, UNSPECIFIED
--- NOTE | 2017-03-23 18:24 | PN ---
Progress Note (short form) - Note Progress Note: Pt seen and examined. Chart reviewed in detail. All the consults notes reviewed. Labs reviewed O/E: Constitutional: Yes: Sleepy ( just received morphine) HENT: Yes: Atraumatic, Normocephalic Neck: Yes: Supple Cardiovascular: Yes: WNL Respiratory: Yes: Tachypnea Extremities: Yes: Other (dressing LLE) Neurological: Yes: Alert, Other (awake, oriented to person, not to time) Labs: Last Vital Signs Temp Pulse Resp BP Pulse Ox 97.3 F L 74 16 85/45 94 L 03/23/17 15:03 03/23/17 15:03 03/23/17 15:03 03/23/17 15:03 03/22/17 21:00 Current Medications Generic Name Dose Route Start Last Admin Trade Name Freq PRN Reason Stop Dose Admin Alprazolam 0.5 mg 03/20/17 22:00 03/22/17 22:11 Xanax - PO 0.5 mg HS [facility] Administration Aspirin 81 mg 03/18/17 10:00 03/23/17 10:04 Asa - PO 81 mg DAILY [facility] Administration Budesonide/Formoterol Fumarate 2 puff 03/17/17 22:00 03/23/17 10:05 Symbicort 80/4.5mcg - IH 2 puff BID [facility] Administration Carvedilol 3.125 mg 03/21/17 15:27 03/23/17 10:04 Coreg - PO 3.125 mg BID [facility] Administration Collagenase 1 applic 03/18/17 11:00 03/23/17 10:06 Santyl - TP 1 applic DAILY [facility] Administration Diphenhydramine HCl 25 mg 03/17/17 13:24 Benadryl - PO Q6H PRN FOR ITCHING Docusate Sodium 300 mg 03/22/17 22:00 03/22/17 22:11 Colace - PO 300 mg HS [facility] Administration Epoetin Nash 10,000 units 03/24/17 06:00 Epogen - IVPUSH 03/24/17 06:01 ONCE ONE Fentanyl 1 patch 03/23/17 18:00 Duragesic 25mcg Patch - TD 03/30/17 17:49 Q72H [facility] Piperacillin/Tazobactam/Dextrose 50 mls @ 100 mls/hr 03/17/17 15:15 03/23/17 17:48 Zosyn 2.25gm Ivpb (Premix) IVPB 100 mls/hr Q8H-IV [facility] Administration Protocol Vancomycin HCl 1,000 mg/ 250 mls @ 250 mls/hr 03/24/17 06:00 Dextrose IVPB 03/24/17 06:59 ONCE ONE Protocol Miscellaneous 1 each 03/23/17 17:49 Duragesic Patch Waste MC PRN PRN PAIN Morphine Sulfate 2 mg 03/21/17 15:12 03/23/17 11:17 Morphine Sulfate IVPUSH 2 mg Q6H PRN Administration PAIN Ranitidine HCl 150 mg 03/18/17 10:00 03/23/17 10:08 Zantac Oral Solution - PO 150 mg DAILY [facility] Administration Rosuvastatin Calcium 5 mg 03/23/17 22:00 Crestor - PO HS [facility] Sucralfate 0.5 gm 03/17/17 22:00 03/23/17 10:04 Carafate Oral Suspension - PO 0.5 gm BID [facility] Administration CBC, BMP 03/23/17 06:20 03/23/17 06:20 INR, PTT INR 2.82 (0.82-1.09) H D 03/23/17 06:20 Fibrinogen 394.0 mg/dL (238-498) 03/23/17 06:20 Coagulopathy ( prolonged PTT/PT/Thrombocytopenia), improving gangrene Sepsis from gangrene ESRD Afib was on heparin AMS AAA Liver Cirrhosis Lung Nodule s/p R AKA -Coags improved today. -platelets better than yesterday -pt documented h/o DVT, unknown further details at this time, if systemic AC could be stopped ,but patient has Afib with a [id number] of 4, which needs systemic AC and choice for him would be coumadin. Here, LLE US with negative DVT. -will f/u on US abdomen -r/o MADDI, HIT ab pending -abx per ID -will need FFP/Platelets/Vit K prior to procedure when planned -will need GI w.u at some point due to mentioned hx in ana and ongoing anemia. -repeat labs -close monitoring -d/w family at bedside
--- NOTE | 2017-03-23 18:54 | CONSULT ---
Consult - text type - Consultation Consultation Note: NEUROLOGY CONSULTATION is greatly appreciated: Events reviewed and discussed with son at bedside. This 77 yo RH man with h/o HTN, Chol and severe ASVD has ESRD on HD TIW x years in [place]. S/P Right AKA about 2 mos ago and recent toe amputations on left. Son recalls the onset of visual changes 2 mos ago when he visited his father in [place]. Chronic low back pain. Now admitted with infection Left foot and dry gangrene. For forefoot amputation next week. Son notes he is forgetful but becomes frankly "confused on Morphine." He has had a series of CT scans since admission beginning on 03/17. All CT and MRI studies are reviewed by me: All show old left occipital infarct, Moderately severe, diffuse atrophy, ex vacuo hydrocephalus, and diffuse microvascular disease. Around 03/21 the patient had worsening of confusion. CT of head was read by Dr Fuentes as showing Left occipital CVA but he didn't compare it to the prior studies. STEPHEN: No bruits. Cor Reg. s/P Left AKA. Right foot bandaged. NEURO: Awake, alert confused. Fluent speech. Rests on his right side with eyes closed. Right field cut. No facial asymmetry. Gag OK No drift or cogwheeling. Brisk reflexes except absent Left AJ. Decreased sensation Left foot. 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 Confusion will increase with toxic metabolic encephalopathy (narcotics/ infection). SUGGEST: Continue current regimen. Check B12, TSH, RPR Avoid narcotic polypharmacy and try physical modalities for Back and leg complaints such as elevation, mobilization, heat application, PT, etc. Thank you very much, Anup Babcock MD
[2017-03-23] MEDS: fentaNYL 25mcg/hr PATCH.TD72 TD SCH (19:49)
[2017-03-23] MEDS: ALPRAZolam 0.25 MG TABLET PO SCH (21:55)
[2017-03-23] MEDS: ROSUVASTATIN CA 5 MG TABLET (FP) PO SCH (21:56)
[2017-03-23] MEDS: DOCUSATE SODIUM 100 MG CAPSULE (FP) PO SCH (21:56)
[2017-03-24] MEDS: PIPERACILLIN/TAZOB 2.25 GM 50 ML IVPB SCH ×3 (01:46→18:20)
[2017-03-24] MEDS: morphine SULFATE 4 MG/ML VIAL IVPUSH PRN ×2 (03:45→22:12)
[2017-03-24] MEDS ORDERED: VANCOMYCIN 1,000 MG in DEXTROSE 5%-WATER - 250 ML IVPB ONE (06:00)
[2017-03-24 10:02] LABS: MCH 27.8 pg (25.7-33.7); MCHC 33.3 g/dl (32.0-35.9); MEAN CELL VOLUME 83.3 fl (80-96); MEAN PLT VOLUME 8.2 fl (7.5-11.1); PLATELET COUNT 48 K/MM3 (134-434); RDW 15.8 % (11.9-15.9); WHITE BLOOD COUNT 6.5 K/mm3 (4.0-10.0)
[2017-03-24 10:04] LABS: INR 2.88 (0.82-1.09); PROTHROMBIN TIME (PATIENT) 32.6 SEC (9.98-11.88)
[2017-03-24] MEDS: COLLAGENASE CLOSTRIDIUM HIST. 30 GRAMS TUBE TP SCH (10:09)
[2017-03-24] MEDS ORDERED: EPOETIN ALFA 10,000 UNIT/1 ML VIAL IVPUSH ONE (10:15)
[2017-03-24 10:47] LABS: ANION GAP 9 (8-16); CO2 30 mmol/L (21-32); CREATININE 5.6 mg/dL (0.7-1.3); GLUCOSE,RANDOM 116 mg/dL (74-106)
[2017-03-24 10:56] LABS: CALCIUM 6.9 mg/dL (8.5-10.1)
[2017-03-24] MEDS ORDERED: PT OWN MED DRAWER 7, Y5N ONE (11:19)
[2017-03-24] MEDS: BUDESONIDE/FORMETEROL FUMARATE 80/4.5 mcg INHALER IH SCH ×2 (11:22→21:49)
[2017-03-24] MEDS: SUCRALFATE 1 GM/10 ML UNIT DOSE CUPS PO SCH ×3 (11:25→22:00)
[2017-03-24] MEDS: diphenhydrAMINE HCL 25 MG CAPSULE (FP) PO PRN ×2 (11:26→22:23)
[2017-03-24] MEDS: CARVEDILOL 3.125 MG TABLET (FP) PO SCH ×2 (11:27→22:00)
[2017-03-24] MEDS: ASPIRIN 81 MG CHEWABLE TABLETS PO SCH (11:27)
[2017-03-24] MEDS: RANITIDINE HCL 150 MG/10 ML UNIT-DOSE PO SCH (11:27)
--- NOTE | 2017-03-24 12:13 | PN ---
Progress Note (short form) - Note Progress Note: Pain/discomfort at sacral decubitus. Noted HD stopped early due to hypotension. No CP or SOB. Intake & Output 03/21/17 03/22/17 03/23/17 03/24/17 23:59 23:59 23:59 23:59 Intake Total 430 100 500 100 Output Total 0 0 0 Balance 430 100 500 100 Weight 138 lb 5 oz 140 lb 5 oz 141 lb 143 lb 4 oz Last Vital Signs Temp Pulse Resp BP Pulse Ox 97.6 F 88 18 104/54 95 03/24/17 08:15 03/24/17 10:35 03/24/17 10:35 03/24/17 10:35 03/23/17 20:17 Active Medications Alprazolam (Xanax -) 0.5 mg PO HS [facility] Last Admin: 03/23/17 21:55 Dose: 0.5 mg Aspirin (Asa -) 81 mg PO DAILY [facility] Last Admin: 03/24/17 11:27 Dose: 81 mg Budesonide/Formoterol Fumarate (Symbicort 80/4.5mcg -) 2 puff IH BID [facility] Last Admin: 03/24/17 11:22 Dose: 2 puff Carvedilol (Coreg -) 3.125 mg PO BID [facility] Last Admin: 03/24/17 11:27 Dose: 3.125 mg Collagenase (Santyl -) 1 applic TP DAILY [facility] Last Admin: 03/23/17 10:06 Dose: 1 applic Diphenhydramine HCl (Benadryl -) 25 mg PO Q6H PRN PRN Reason: FOR ITCHING Last Admin: 03/24/17 11:26 Dose: 25 mg Docusate Sodium (Colace -) 300 mg PO HS [facility] Last Admin: 03/23/17 21:56 Dose: 300 mg Fentanyl (Duragesic 25mcg Patch -) 1 patch TD Q72H [facility] Stop: 03/30/17 17:49 Last Admin: 03/23/17 19:49 Dose: 1 patch Piperacillin/Tazobactam/Dextrose (Zosyn 2.25gm Ivpb (Premix)) 50 mls @ 100 mls/ hr IVPB Q8H-IV [facility] PRN Reason: Protocol Last Admin: 03/24/17 11:27 Dose: 100 mls/hr Miscellaneous (Duragesic Patch Waste) 1 each PRN PRN PRN Reason: PAIN Morphine Sulfate (Morphine Sulfate) 2 mg IVPUSH Q6H PRN PRN Reason: PAIN Last Admin: 03/24/17 03:45 Dose: 2 mg Ranitidine HCl (Zantac Oral Solution -) 150 mg PO DAILY [facility] Last Admin: 03/24/17 11:27 Dose: 150 mg Rosuvastatin Calcium (Crestor -) 5 mg PO HS [facility] Last Admin: 03/23/17 21:56 Dose: 5 mg Sucralfate (Carafate Oral Suspension -) 0.5 gm PO BID [facility] Last Admin: 03/24/17 11:25 Dose: 0.5 gm Constitutional: Yes: NAD Eyes: Yes: Conjunctiva Clear, EOM Intact HENT: Yes: Atraumatic, Normocephalic Neck: Yes: Supple, Trachea Midline Cardiovascular: Yes: Regular Rate and Rhythm Respiratory: Yes: Rhonchi (basilar) ...Clubbing: No Gastrointestinal: Yes: Normal Bowel Sounds, Soft. No: Tenderness Extremities: Yes: Other (R AKA) Edema: No Neurological: Yes: Other (agitated) Labs: Laboratory Results - last 24 hr 03/22/17 03/24/17 03/24/17 11:30 06:00 09:00 WBC 6.5 RBC 3.56 L Hgb 9.9 L Hct 29.7 L MCV 83.3 MCH 27.8 MCHC 33.3 RDW 15.8 Plt Count 48 L MPV 8.2 Haptoglobin 237 H PT with INR 32.60 H INR 2.88 H Sodium Potassium Chloride Carbon Dioxide Anion Gap BUN Creatinine Random Glucose Calcium Vitamin B12 Serum Folate Random Vancomycin 03/24/17 03/24/17 03/24/17 10:14 10:14 10:20 WBC RBC Hgb Hct MCV MCH MCHC RDW Plt Count MPV Haptoglobin PT with INR INR Sodium 143 Potassium 2.9 L* D Chloride 104 Carbon Dioxide 30 D Anion Gap 9 BUN 28 H Creatinine 5.6 H Random Glucose 116 H D Calcium 6.9 L* Vitamin B12 Cancelled Serum Folate Random Vancomycin 16.931 03/24/17 10:20 WBC RBC Hgb Hct MCV MCH MCHC RDW Plt Count MPV Haptoglobin PT with INR INR Sodium Potassium Chloride Carbon Dioxide Anion Gap BUN Creatinine Random Glucose Calcium Vitamin B12 Serum Folate Cancelled Random Vancomycin Problem List - Problems (1) Open wnd foot-complicated Code(s): S91.309A - UNSPECIFIED OPEN WOUND, UNSPECIFIED FOOT, INITIAL ENCOUNTER (2) Peripheral arterial disease Code(s): I73.9 - PERIPHERAL VASCULAR DISEASE, UNSPECIFIED (3) Anemia Code(s): D64.9 - ANEMIA, UNSPECIFIED (4) Atrial fibrillation Code(s): I48.91 - UNSPECIFIED ATRIAL FIBRILLATION Qualifiers: Atrial fibrillation type: persistent Qualified Code(s): I48.1 - Persistent atrial fibrillation; I48.1 - Persistent atrial fibrillation; I48.1 - Persistent atrial fibrillation; I48.1 - Persistent atrial fibrillation (5) ESRD (end stage renal disease) Code(s): N18.6 - END STAGE RENAL DISEASE (6) HLD (hyperlipidemia) Code(s): E78.5 - HYPERLIPIDEMIA, UNSPECIFIED Qualifiers: Hyperlipidemia type: pure hypercholesterolemia Qualified Code(s): E78.00 - Pure hypercholesterolemia, unspecified; E78.00 - Pure hypercholesterolemia, unspecified; E78.00 - Pure hypercholesterolemia, unspecified; E78.0 - Pure hypercholesterolemia (7) HTN (hypertension) Code(s): I10 - ESSENTIAL (PRIMARY) HYPERTENSION Qualifiers: Hypertension type: essential hypertension Qualified Code(s): I10 - Essential (primary) hypertension; I10 - Essential (primary) hypertension; I10 - Essential (primary) hypertension (8) S/P AKA (above knee amputation) Code(s): Z89.619 - ACQUIRED ABSENCE OF UNSPECIFIED LEG ABOVE KNEE Qualifiers: Laterality: right Qualified Code(s): Z89.611 - Acquired absence of right leg above knee; Z89.611 - Acquired absence of right leg above knee; Z89.611 - Acquired absence of right leg above knee (9) Systolic dysfunction, left ventricle Code(s): I51.9 - HEART DISEASE, UNSPECIFIED Assessment/Plan Foot Wound Infection Peripheral Artery Disease ESRD on HD Atrial Fibrillation Severe LV Systolic Dysfunction Pulmonary HTN Supratherapeutic INR Thrombocytopenia AAA Liver Cirrhosis 2 cm right mid lung zone irregular density along the fissure: (?) inflammatory versus mass s/p R AKA Pain control ABX Wound care per surgeyr HD per Renal Normal transfusion thresholds O2 as needed Will need close short term outpatient CT follow up of lung nodule. Dr Braun
--- NOTE | 2017-03-24 12:47 | PN ---
Progress Note (short form) - Note Progress Note: Pt seen and examined. Chart reviewed in detail. All the consults notes reviewed. Labs reviewed. son at bedside. pt agitated, ros unobtainable. O/E: Constitutional: Yes: agitated. HENT: Yes: Atraumatic, Normocephalic Neck: Yes: Supple Cardiovascular: Yes: WNL Respiratory: Yes: Tachypnea Extremities: Yes: Other (dressing LLE) Neurological: Yes: Alert, Other (awake, oriented to person, not to time) Labs: Last Vital Signs Temp Pulse Resp BP Pulse Ox 97.3 F L 74 16 85/45 94 L 03/23/17 15:03 03/23/17 15:03 03/23/17 15:03 03/23/17 15:03 03/22/17 21:00 Current Medications Generic Name Dose Route Start Last Admin Trade Name Freq PRN Reason Stop Dose Admin Alprazolam 0.5 mg 03/20/17 22:00 03/22/17 22:11 Xanax - PO 0.5 mg HS [facility] Administration Aspirin 81 mg 03/18/17 10:00 03/23/17 10:04 Asa - PO 81 mg DAILY [facility] Administration Budesonide/Formoterol Fumarate 2 puff 03/17/17 22:00 03/23/17 10:05 Symbicort 80/4.5mcg - IH 2 puff BID [facility] Administration Carvedilol 3.125 mg 03/21/17 15:27 03/23/17 10:04 Coreg - PO 3.125 mg BID [facility] Administration Collagenase 1 applic 03/18/17 11:00 03/23/17 10:06 Santyl - TP 1 applic DAILY [facility] Administration Diphenhydramine HCl 25 mg 03/17/17 13:24 Benadryl - PO Q6H PRN FOR ITCHING Docusate Sodium 300 mg 03/22/17 22:00 03/22/17 22:11 Colace - PO 300 mg HS [facility] Administration Epoetin Nash 10,000 units 03/24/17 06:00 Epogen - IVPUSH 03/24/17 06:01 ONCE ONE Fentanyl 1 patch 03/23/17 18:00 Duragesic 25mcg Patch - TD 03/30/17 17:49 Q72H [facility] Piperacillin/Tazobactam/Dextrose 50 mls @ 100 mls/hr 03/17/17 15:15 03/23/17 17:48 Zosyn 2.25gm Ivpb (Premix) IVPB 100 mls/hr Q8H-IV [facility] Administration Protocol Vancomycin HCl 1,000 mg/ 250 mls @ 250 mls/hr 03/24/17 06:00 Dextrose IVPB 03/24/17 06:59 ONCE ONE Protocol Miscellaneous 1 each 03/23/17 17:49 Duragesic Patch Waste MC PRN PRN PAIN Morphine Sulfate 2 mg 03/21/17 15:12 03/23/17 11:17 Morphine Sulfate IVPUSH 2 mg Q6H PRN Administration PAIN Ranitidine HCl 150 mg 03/18/17 10:00 03/23/17 10:08 Zantac Oral Solution - PO 150 mg DAILY [facility] Administration Rosuvastatin Calcium 5 mg 03/23/17 22:00 Crestor - PO HS [facility] Sucralfate 0.5 gm 03/17/17 22:00 03/23/17 10:04 Carafate Oral Suspension - PO 0.5 gm BID [facility] Administration CBC, BMP 03/23/17 06:20 03/23/17 06:20 INR, PTT INR 2.82 (0.82-1.09) H D 03/23/17 06:20 Fibrinogen 394.0 mg/dL (238-498) 03/23/17 06:20 Coagulopathy ( prolonged PTT/PT/Thrombocytopenia), improving gangrene Sepsis from gangrene ESRD Afib was on heparin AMS AAA Liver Cirrhosis Lung Nodule s/p R AKA -US abdomen when able to -f/u on MADDI -Hold ac , as platelets still <50K -PT/PTT reviewed -regular transfusion threshold -vascular/renal/Cards/ID/Neuro f/u noted -?poor baseline
[2017-03-24] MEDS ORDERED: POTASSIUM CHLORIDE TABS 20 MEQ TABLET.ER (FP) PO ONE (15:03)
--- NOTE | 2017-03-24 15:16 | PN ---
Progress Note (short form) - Note Progress Note: Renal follow up for ESRD on HD Pt seen and examined during dialysis pt is very restless again and reports having pain in his lower back pt wanted to come off the machine b/c of pain Vital Signs Temperature 97.6 F 03/24/17 13:10 Pulse Rate 86 03/24/17 13:10 Respiratory Rate 18 03/24/17 13:10 Blood Pressure 129/71 03/24/17 13:10 O2 Sat by Pulse Oximetry (%) 95 03/23/17 20:17 Intake & Output 03/21/17 03/22/17 03/23/17 03/24/17 23:59 23:59 23:59 23:59 Intake Total 430 100 500 100 Output Total 0 0 0 Balance 430 100 500 100 Weight 138 lb 5 oz 140 lb 5 oz 141 lb 143 lb 4 oz distress from pain RRR CTA soft NT/ND Sacral dressing in place No LE kumar foot in dressing CBC, BMP 03/24/17 06:00 03/24/17 10:14 Current Medications Alprazolam (Xanax -) 0.5 mg PO HS [facility] Last Admin: 03/23/17 21:55 Dose: 0.5 mg Aspirin (Asa -) 81 mg PO DAILY [facility] Last Admin: 03/24/17 11:27 Dose: 81 mg Budesonide/Formoterol Fumarate (Symbicort 80/4.5mcg -) 2 puff IH BID [facility] Last Admin: 03/24/17 11:22 Dose: 2 puff Carvedilol (Coreg -) 3.125 mg PO BID [facility] Last Admin: 03/24/17 11:27 Dose: 3.125 mg Collagenase (Santyl -) 1 applic TP DAILY [facility] Last Admin: 03/23/17 10:06 Dose: 1 applic Diphenhydramine HCl (Benadryl -) 25 mg PO Q6H PRN PRN Reason: FOR ITCHING Last Admin: 03/24/17 11:26 Dose: 25 mg Docusate Sodium (Colace -) 300 mg PO HS [facility] Last Admin: 03/23/17 21:56 Dose: 300 mg Fentanyl (Duragesic 25mcg Patch -) 1 patch TD Q72H [facility] Stop: 03/30/17 17:49 Last Admin: 03/23/17 19:49 Dose: 1 patch Piperacillin/Tazobactam/Dextrose (Zosyn 2.25gm Ivpb (Premix)) 50 mls @ 100 mls/ hr IVPB Q8H-IV [facility] PRN Reason: Protocol Last Admin: 03/24/17 11:27 Dose: 100 mls/hr Miscellaneous (Duragesic Patch Waste) 1 each MC PRN PRN PRN Reason: PAIN Morphine Sulfate (Morphine Sulfate) 2 mg IVPUSH Q6H PRN PRN Reason: PAIN Last Admin: 03/24/17 03:45 Dose: 2 mg Ranitidine HCl (Zantac Oral Solution -) 150 mg PO DAILY [facility] Last Admin: 03/24/17 11:27 Dose: 150 mg Rosuvastatin Calcium (Crestor -) 5 mg PO HS [facility] Last Admin: 03/23/17 21:56 Dose: 5 mg Sucralfate (Carafate Oral Suspension -) 0.5 gm PO BID [facility] Last Admin: 03/24/17 11:25 Dose: 0.5 gm 77 year old gentleman with PMhx of ESRD on HD (TTS), Hypertension, DVT, PVD s/p right AKA and left toe amputation who presented to the ED with complaints of pain in his left foot and admitted fro soft tissue infection of the foot with concern for worsening ischemic disease. #ESRD on HD pt taken off diaysis after 2 hours K noted to 2.9 after completion of dialysis, will need to replete K -> give KCL 40 meq x 1 repeat K this pm trend BUN/Cr Renal diet #Wound/Ischemia of left LE s/p angioplasty and stenting continue Abx as per ID #Acute on Chronic Anemia likely due to infection but need to r/o blood loss s/p transfusion wth good response will continue IVANIA with HD #Sacral stage 1 decubitis continue supportive care fentayl patch Thank you Raghu Boogie DO Problem List - Problems (1) Critical lower limb ischemia Code(s): I99.8 - OTHER DISORDER OF CIRCULATORY SYSTEM (2) Open wnd foot-complicated Code(s): S91.309A - UNSPECIFIED OPEN WOUND, UNSPECIFIED FOOT, INITIAL ENCOUNTER (3) HTN (hypertension) Code(s): I10 - ESSENTIAL (PRIMARY) HYPERTENSION Qualifiers: Hypertension type: essential hypertension Qualified Code(s): I10 - Essential (primary) hypertension (4) ESRD (end stage renal disease) Code(s): N18.6 - END STAGE RENAL DISEASE (5) Anemia Code(s): D64.9 - ANEMIA, UNSPECIFIED
--- NOTE | 2017-03-24 15:37 | PN ---
Progress Note (short form) - Note Progress Note: Subjective: The patient was seen and examined at the bedside in dialysis, he was only able to tolerate 2 hours of HD today, became combative Current Medications Generic Name Dose Route Start Last Admin Trade Name Freq PRN Reason Stop Dose Admin Alprazolam 0.5 mg 03/20/17 22:00 03/23/17 21:55 Xanax - PO 0.5 mg HS [facility] Administration Aspirin 81 mg 03/18/17 10:00 03/24/17 11:27 Asa - PO 81 mg DAILY [facility] Administration Budesonide/Formoterol Fumarate 2 puff 03/17/17 22:00 03/24/17 11:22 Symbicort 80/4.5mcg - IH 2 puff BID [facility] Administration Carvedilol 3.125 mg 03/21/17 15:27 03/24/17 11:27 Coreg - PO 3.125 mg BID [facility] Administration Collagenase 1 applic 03/18/17 11:00 03/23/17 10:06 Santyl - TP 1 applic DAILY [facility] Administration Diphenhydramine HCl 25 mg 03/17/17 13:24 03/24/17 11:26 Benadryl - PO 25 mg Q6H PRN Administration FOR ITCHING Docusate Sodium 300 mg 03/22/17 22:00 03/23/17 21:56 Colace - PO 300 mg HS [facility] Administration Fentanyl 1 patch 03/23/17 18:00 03/23/17 19:49 Duragesic 25mcg Patch - TD 03/30/17 17:49 1 patch Q72H [facility] Administration Piperacillin/Tazobactam/Dextrose 50 mls @ 100 mls/hr 03/17/17 15:15 03/24/17 11:27 Zosyn 2.25gm Ivpb (Premix) IVPB 100 mls/hr Q8H-IV [facility] Administration Protocol Miscellaneous 1 each 03/23/17 17:49 Duragesic Patch Waste MC PRN PRN PAIN Morphine Sulfate 2 mg 03/21/17 15:12 03/24/17 03:45 Morphine Sulfate IVPUSH 2 mg Q6H PRN Administration PAIN Ranitidine HCl 150 mg 03/18/17 10:00 03/24/17 11:27 Zantac Oral Solution - PO 150 mg DAILY [facility] Administration Rosuvastatin Calcium 5 mg 03/23/17 22:00 03/23/17 21:56 Crestor - PO 5 mg HS [facility] Administration Sucralfate 0.5 gm 03/17/17 22:00 03/24/17 11:25 Carafate Oral Suspension - PO 0.5 gm BID [facility] Administration Objective: Vital Signs Period Temp Pulse Resp BP Sys/Coleman Pulse Ox Last 24 Hr 97.4 F-97.7 F 73-97 18-20 89-129/44-71 95 Physical Exam: Refused exam CBCD WBC 6.5 K/mm3 (4.0-10.0) 03/24/17 06:00 RBC 3.56 M/mm3 (4.00-5.60) L 03/24/17 06:00 Hgb 9.9 GM/dL (11.7-16.9) L 03/24/17 06:00 Hct 29.7 % (35.4-49) L 03/24/17 06:00 MCV 83.3 fl (80-96) 03/24/17 06:00 MCHC 33.3 g/dl (32.0-35.9) 03/24/17 06:00 RDW 15.8 % (11.9-15.9) 03/24/17 06:00 Plt Count 48 K/MM3 (134-434) L 03/24/17 06:00 MPV 8.2 fl (7.5-11.1) 03/24/17 06:00 CMP Sodium 143 mmol/L (136-145) 03/24/17 10:14 Potassium 2.9 mmol/L (3.5-5.1) L* D 03/24/17 10:14 Chloride 104 mmol/L (98-107) 03/24/17 10:14 Carbon Dioxide 30 mmol/L (21-32) D 03/24/17 10:14 Anion Gap 9 (8-16) 03/24/17 10:14 BUN 28 mg/dL (7-18) H 03/24/17 10:14 Creatinine 5.6 mg/dL (0.7-1.3) H 03/24/17 10:14 Creat Clearance w eGFR 7.82 (>60) 03/23/17 06:20 Random Glucose 116 mg/dL (74-106) H D 03/24/17 10:14 Calcium 6.9 mg/dL (8.5-10.1) L* 03/24/17 10:14 Total Bilirubin 0.8 mg/dL (0.2-1.0) 03/23/17 06:20 AST 14 U/L (15-37) L D 03/23/17 06:20 ALT 7 U/L (12-78) L 03/23/17 06:20 Alkaline Phosphatase 84 U/L (45-117) 03/23/17 06:20 Total Protein 4.8 g/dl (6.4-8.2) L 03/23/17 06:20 Albumin 2.0 g/dl (3.4-5.0) L 03/23/17 06:20 CARDIAC ENZYMES Creatine Kinase 17 IU/L (39-308) L 03/14/17 01:15 Troponin I 0.03 ng/ml (0.00-0.05) 03/14/17 01:15 Microbiology 03/21/17 15:30 Blood - Peripheral Venous Blood Culture - Preliminary NO GROWTH OBTAINED AFTER 48 HOURS, INCUBATION TO CONTINUE FOR 3 DAYS. 03/21/17 15:30 Blood - Peripheral Venous Blood Culture - Preliminary NO GROWTH OBTAINED AFTER 48 HOURS, INCUBATION TO CONTINUE FOR 3 DAYS. 03/14/17 01:20 Blood - Peripheral Venous Blood Culture - Final NO GROWTH AFTER 5 DAYS INCUBATION 03/14/17 01:15 Blood - Peripheral Venous Blood Culture - Final NO GROWTH AFTER 5 DAYS INCUBATION 03/14/17 13:30 Foot - Left Gram Stain - Final 03/14/17 13:30 Foot - Left Wound Culture - Final Serratia Marcescens Raoultella (K) Ornithinolytica Imagin03/14/2017: CT/Abdomen CTA AOR & RLE Runoff: Extensive severe diffuse aortoiliac , femoro-popliteal and intrapoplitea, occluded left SFA and mucus occlusion of flow in a severely diseased the renal artery demonstrates at lease 70-90% stenosis. Occluded left ENMANUEL and two vessel runoff provided by [employer] and PA however degree of disease and stenosis cannot be discerned due to calcification and hardening artifacts. enlarged prostate. Small right sided pleural effusion with severe right lung base atelectic changes vs pnemonic infiltrates. 03/14/2017: US/Duplex arterial legs, limited ultrasound: Extensive artheroscleoric disease with occlusion of the SFA. There is weak, monosphasic flow present within the popliteal and posterior tibial arteries. Assessment: This is a 77 year old male with PMHx of ESRD on HD (,,), HTN, DVT, right AKA 3 months ago, left 2nd digit amputation lower extremity, who presented to the ED for worsening left foot pain. Plan: 1) Left SFA occlusion, left foot gangrene, severe sepsis - Imaging as above - S/p aortogram with LLE angiogram 03/17 - S/p LLE angiogram, SFA DCB angioplasty, SFA Stent placement. Retrograde puncture from left popliteal artery - Will need TMA vs. toe amputation once stable - Continue Zosyn - Vanco per level/ID - Pain management - Appreciate ID consult - Appreciate vascular surgery consult Hx of DVT - Off heparin gtt now, possible HIT 2) Severe thrombocytopenia - F/u HIT - Normal platelet transfusion threshold - Appreciate hematology consult 3) Acute metabolic encephalopathy - Improving - CT head with left occipital infarct - MRI brain with generalized volume loss, small vessel infarction in the periventricular white matter with an old infarct of the medial aspect of the left occipital lobe 2) ESRD - Continue HD as scheduled - Renal diet 3) A.fib, chronic - Off heparin gtt 2/2 severe thrombocytopenia, awaiting HIT panel 4) AAA - F/u outpatient 5) Chronic anemia - Monitor Hgb - Continue to monitor 6) F/E/N: - Monitor electrolytes - Renal diet 7) Prophylaxis: - Hold all chemical dvt prophylaxis 2/2 severe thrombocytopenia 8) Dispo: - Requires continued inpatient care CODE STATUS: FULL CODE Visit type - Emergency Visit Emergency Visit: Yes ED Registration Date: 03/14/17 Care time: The patient presented to the Emergency Department on the above date and was hospitalized for further evaluation of their emergent condition. - New Patient This patient is new to me today: No - Critical Care Critical Care patient: No
--- NOTE | 2017-03-24 16:12 | PN ---
Progress Note (short form) - Note Progress Note: Vascular Surgery Pt seen and examined with family at bedside. Dressing changed. Explained to family that a tma might not heal . Might be best to just do a bka for definitive surgical option. Family will think about it. Please optimize for surgery Faizan Villa DO
--- NOTE | 2017-03-24 16:28 | PN ---
Progress Note, Physician History of Present Illness: patient stable awaiting family decision patient awaiting decision on amputation - Current Medication List Current Medications: Active Medications Alprazolam (Xanax -) 0.5 mg PO HS [facility] Last Admin: 03/23/17 21:55 Dose: 0.5 mg Aspirin (Asa -) 81 mg PO DAILY [facility] Last Admin: 03/24/17 11:27 Dose: 81 mg Budesonide/Formoterol Fumarate (Symbicort 80/4.5mcg -) 2 puff IH BID [facility] Last Admin: 03/24/17 11:22 Dose: 2 puff Carvedilol (Coreg -) 3.125 mg PO BID [facility] Last Admin: 03/24/17 11:27 Dose: 3.125 mg Collagenase (Santyl -) 1 applic TP DAILY [facility] Last Admin: 03/23/17 10:06 Dose: 1 applic Diphenhydramine HCl (Benadryl -) 25 mg PO Q6H PRN PRN Reason: FOR ITCHING Last Admin: 03/24/17 11:26 Dose: 25 mg Docusate Sodium (Colace -) 300 mg PO [facility] Last Admin: 03/23/17 21:56 Dose: 300 mg Fentanyl (Duragesic 25mcg Patch -) 1 patch TD Q72H [facility] Stop: 03/30/17 17:49 Last Admin: 03/23/17 19:49 Dose: 1 patch Piperacillin/Tazobactam/Dextrose (Zosyn 2.25gm Ivpb (Premix)) 50 mls @ 100 mls/ hr IVPB Q8H-IV [facility] PRN Reason: Protocol Last Admin: 03/24/17 11:27 Dose: 100 mls/hr Miscellaneous (Duragesic Patch Waste) 1 each MC PRN PRN PRN Reason: PAIN Morphine Sulfate (Morphine Sulfate) 2 mg IVPUSH Q6H PRN PRN Reason: PAIN Last Admin: 03/24/17 03:45 Dose: 2 mg Ranitidine HCl (Zantac Oral Solution -) 150 mg PO DAILY [facility] Last Admin: 03/24/17 11:27 Dose: 150 mg Rosuvastatin Calcium (Crestor -) 5 mg PO HS [facility] Last Admin: 03/23/17 21:56 Dose: 5 mg Sucralfate (Carafate Oral Suspension -) 0.5 gm PO BID [facility] Last Admin: 03/24/17 11:25 Dose: 0.5 gm - Objective Vital Signs: Vital Signs Temperature 97.6 F 03/24/17 13:10 Pulse Rate 86 03/24/17 13:10 Respiratory Rate 18 03/24/17 13:10 Blood Pressure 129/71 03/24/17 13:10 O2 Sat by Pulse Oximetry (%) 95 03/23/17 20:17 Constitutional: Yes: No Distress, Calm Cardiovascular: Yes: Regular Rate and Rhythm Respiratory: Yes: Regular, CTA Bilaterally Gastrointestinal: Yes: Normal Bowel Sounds Musculoskeletal: Yes: Other Extremities: Yes: Other Wound/Incision: Yes: Dressing Dry and Intact Neurological: Yes: Alert, Other Psychiatric: Yes: Other Labs: CBC, BMP 03/24/17 06:00 03/24/17 10:14 INR, PTT INR 2.88 (0.82-1.09) H 03/24/17 09:00 Fibrinogen 394.0 mg/dL (238-498) 03/23/17 06:20 Assessment/Plan Problem List - Problems (1) Anemia Code(s): D64.9 - ANEMIA, UNSPECIFIED (2) Critical lower limb ischemia Code(s): I99.8 - OTHER DISORDER OF CIRCULATORY SYSTEM (3) ESRD (end stage renal disease) Code(s): N18.6 - END STAGE RENAL DISEASE (4) HTN (hypertension) Code(s): I10 - ESSENTIAL (PRIMARY) HYPERTENSION (5) Open wnd foot-complicated Code(s): S91.309A - UNSPECIFIED OPEN WOUND, UNSPECIFIED FOOT, INITIAL ENCOUNTER plan ct abx await for surgical plan rest s per primary ct mgmt
[2017-03-24] MEDS: ALPRAZolam 0.25 MG TABLET PO SCH (21:46)
[2017-03-24] MEDS: DOCUSATE SODIUM 100 MG CAPSULE (FP) PO SCH (21:47)
[2017-03-24] MEDS: ROSUVASTATIN CA 5 MG TABLET (FP) PO SCH (21:48)
[2017-03-25] MEDS: PIPERACILLIN/TAZOB 2.25 GM 50 ML IVPB SCH ×3 (02:39→17:23)
[2017-03-25] MEDS: morphine SULFATE 4 MG/ML VIAL IVPUSH PRN ×2 (04:26→15:23)
[2017-03-25 08:14] LABS: EOSINOPHIL 1.4 % (0-4.5); MCH 27.4 pg (25.7-33.7); MCHC 32.4 g/dl (32.0-35.9); MEAN CELL VOLUME 84.6 fl (80-96); MEAN PLT VOLUME 7.2 fl (7.5-11.1); NEUTROPHILS 73.8 % (42.8-82.8); PLATELET COUNT 60 K/MM3 (134-434); RDW 15.9 % (11.9-15.9); WHITE BLOOD COUNT 6.7 K/mm3 (4.0-10.0)
[2017-03-25 08:45] LABS: ANION GAP 16 (8-16); CALCIUM 7.3 mg/dL (8.5-10.1); CO2 25 mmol/L (21-32); CREATININE 7.1 mg/dL (0.7-1.3); GLUCOSE,RANDOM 81 mg/dL (74-106); MAGNESIUM 1.9 mg/dL (1.8-2.4); PHOSPHOROUS 3.9 mg/dL (2.5-4.9)
[2017-03-25 08:47] LABS: INR 1.98 (0.82-1.09); PROTHROMBIN TIME (PATIENT) 22.4 SEC (9.98-11.88)
[2017-03-25] MEDS: CARVEDILOL 3.125 MG TABLET (FP) PO SCH ×2 (10:09→21:53)
[2017-03-25] MEDS: ASPIRIN 81 MG CHEWABLE TABLETS PO SCH (10:09)
[2017-03-25] MEDS: RANITIDINE HCL 150 MG/10 ML UNIT-DOSE PO SCH (10:09)
[2017-03-25] MEDS: SUCRALFATE 1 GM/10 ML UNIT DOSE CUPS PO SCH ×2 (10:09→22:00)
[2017-03-25] MEDS: BUDESONIDE/FORMETEROL FUMARATE 80/4.5 mcg INHALER IH SCH ×2 (11:24→21:52)
--- NOTE | 2017-03-25 12:12 | PN ---
Progress Note, Physician History of Present Illness: Feels improved in chair. Diovan held due to hypotension. - Current Medication List Current Medications: Active Medications Alprazolam (Xanax -) 0.5 mg PO HS [facility] Last Admin: 03/24/17 21:46 Dose: 0.5 mg Aspirin (Asa -) 81 mg PO DAILY [facility] Last Admin: 03/25/17 10:09 Dose: 81 mg Budesonide/Formoterol Fumarate (Symbicort 80/4.5mcg -) 2 puff IH BID [facility] Last Admin: 03/24/17 21:49 Dose: 2 puff Carvedilol (Coreg -) 3.125 mg PO BID [facility] Last Admin: 03/25/17 10:09 Dose: 3.125 mg Collagenase (Santyl -) 1 applic TP DAILY [facility] Last Admin: 03/24/17 10:09 Dose: 1 applic Diphenhydramine HCl (Benadryl -) 25 mg PO Q6H PRN PRN Reason: FOR ITCHING Last Admin: 03/24/17 22:23 Dose: 25 mg Docusate Sodium (Colace -) 300 mg PO HS [facility] Last Admin: 03/24/17 21:47 Dose: 300 mg Fentanyl (Duragesic 25mcg Patch -) 1 patch TD Q72H [facility] Stop: 03/30/17 17:49 Last Admin: 03/23/17 19:49 Dose: 1 patch Piperacillin/Tazobactam/Dextrose (Zosyn 2.25gm Ivpb (Premix)) 50 mls @ 100 mls/ hr IVPB Q8H-IV [facility] PRN Reason: Protocol Last Admin: 03/25/17 10:04 Dose: 100 mls/hr Miscellaneous (Duragesic Patch Waste) 1 each MC PRN PRN PRN Reason: PAIN Morphine Sulfate (Morphine Sulfate) 2 mg IVPUSH Q6H PRN PRN Reason: PAIN Last Admin: 03/25/17 04:26 Dose: 2 mg Ranitidine HCl (Zantac Oral Solution -) 150 mg PO DAILY [facility] Last Admin: 03/25/17 10:09 Dose: 150 mg Rosuvastatin Calcium (Crestor -) 5 mg PO HS [facility] Last Admin: 03/24/17 21:48 Dose: 5 mg Sucralfate (Carafate Oral Suspension -) 0.5 gm PO BID [facility] Last Admin: 03/25/17 10:09 Dose: 0.5 gm - Objective Vital Signs: Vital Signs Temperature 97.5 F L 03/25/17 05:13 Pulse Rate 68 03/25/17 05:13 Respiratory Rate 20 03/25/17 05:13 Blood Pressure 88/45 03/25/17 05:13 O2 Sat by Pulse Oximetry (%) 96 03/24/17 20:27 Constitutional: Yes: No Distress, Calm Neck: Yes: Supple Cardiovascular: Yes: Pulse Irregular, Murmur (2/6 SM) Respiratory: Yes: Regular, Diminished Gastrointestinal: Yes: Normal Bowel Sounds, Soft Edema: No Wound/Incision: Yes: Dressing Dry and Intact Labs: CBC, BMP 03/25/17 08:04 03/25/17 08:04 INR, PTT INR 1.98 (0.82-1.09) H D 03/25/17 06:00 Fibrinogen 394.0 mg/dL (238-498) 03/23/17 06:20 Problem List - Problems (1) Critical lower limb ischemia Code(s): I99.8 - OTHER DISORDER OF CIRCULATORY SYSTEM (2) HLD (hyperlipidemia) Code(s): E78.5 - HYPERLIPIDEMIA, UNSPECIFIED Qualifiers: Hyperlipidemia type: pure hypercholesterolemia Qualified Code(s): E78.00 - Pure hypercholesterolemia, unspecified (3) HTN (hypertension) Code(s): I10 - ESSENTIAL (PRIMARY) HYPERTENSION Qualifiers: Hypertension type: essential hypertension Qualified Code(s): I10 - Essential (primary) hypertension (4) ESRD (end stage renal disease) Code(s): N18.6 - END STAGE RENAL DISEASE (5) Atrial fibrillation Code(s): I48.91 - UNSPECIFIED ATRIAL FIBRILLATION Qualifiers: Atrial fibrillation type: persistent Qualified Code(s): I48.1 - Persistent atrial fibrillation (6) Amputated toe of left foot Code(s): Z89.422 - ACQUIRED ABSENCE OF OTHER LEFT TOE(S) (7) S/P AKA (above knee amputation) Code(s): Z89.619 - ACQUIRED ABSENCE OF UNSPECIFIED LEG ABOVE KNEE Qualifiers: Laterality: right Qualified Code(s): Z89.611 - Acquired absence of right leg above knee (8) Cardiomyopathy Code(s): I42.9 - CARDIOMYOPATHY, UNSPECIFIED Qualifiers: Cardiomyopathy type: unspecified Qualified Code(s): I42.9 - Cardiomyopathy , unspecified (9) Systolic dysfunction, left ventricle Code(s): I51.9 - HEART DISEASE, UNSPECIFIED (10) Anticoagulant long-term use Code(s): Z79.01 - JAIL (CURRENT) USE OF ANTICOAGULANTS (11) Thrombocytopenia Code(s): D69.6 - THROMBOCYTOPENIA, UNSPECIFIED (12) Peripheral arterial disease Code(s): I73.9 - PERIPHERAL VASCULAR DISEASE, UNSPECIFIED Assessment/Plan Echocardiography reveals severely reduced LV systolic function, severe TR, moderate pulmonary HTN, mild AR, severely dilated LA and RA 1. PAD S/P right AKA and left toe amputation, occluded left SFA and AAA (4.6 cm ) s/p angiography s/p angioplasty and SFA stent, planned for left BKA 2. Renal artery disease with ESRD on HD 3. HTN/HCVD 4. Persistent AF ([id number] score of 4) with therapeutic INR 5. History of DVT 6. Severe LV systolic dysfunction/cardiomyopathy 7. Severe tricuspid valve regurgitation with pulmonary hypertension 8. S/P mechanical fall 9. Coagulopathy and thrombocytopenia due to infection PLAN: 1. Optimize medical therapy. Nuclear perfusion imaging was cancelled yesterday due to technically not feasible 2. Continue with HD 3. Monitor INR and Plt level. Hematology input noted. Warfarin held pre-op, on ASA 81 qd meantime 4. Continue Carvedilol 3.125 bid and up-titrate. 6. Continue Crestor 5 qd given LDL=32 at goal 7. AAA also needs to be followed as outpatient 8. Patient is at intermediate clinical risk for intermediate risk surgery, but given current absence of sxs of acute coronary syndrome, decompensated CHF or malignant arrhythmia, there are no absolute cardiovascular contraindications against proceeding with recommended BKA
--- NOTE | 2017-03-25 12:50 | PN ---
Progress Note (short form) - Note Progress Note: Subjective: The patient was seen and examined at the bedside he has no complaints at this time. Current Medications Generic Name Dose Route Start Last Admin Trade Name Freq PRN Reason Stop Dose Admin Alprazolam 0.5 mg 03/20/17 22:00 03/24/17 21:46 Xanax - PO 0.5 mg HS [facility] Administration Aspirin 81 mg 03/18/17 10:00 03/25/17 10:09 Asa - PO 81 mg DAILY [facility] Administration Budesonide/Formoterol Fumarate 2 puff 03/17/17 22:00 03/24/17 21:49 Symbicort 80/4.5mcg - IH 2 puff BID [facility] Administration Carvedilol 3.125 mg 03/21/17 15:27 03/25/17 10:09 Coreg - PO 3.125 mg BID [facility] Administration Collagenase 1 applic 03/18/17 11:00 03/24/17 10:09 Santyl - TP 1 applic DAILY [facility] Administration Diphenhydramine HCl 25 mg 03/17/17 13:24 03/24/17 22:23 Benadryl - PO 25 mg Q6H PRN Administration FOR ITCHING Docusate Sodium 300 mg 03/22/17 22:00 03/24/17 21:47 Colace - PO 300 mg HS [facility] Administration Fentanyl 1 patch 03/23/17 18:00 03/23/17 19:49 Duragesic 25mcg Patch - TD 03/30/17 17:49 1 patch Q72H [facility] Administration Piperacillin/Tazobactam/Dextrose 50 mls @ 100 mls/hr 03/17/17 15:15 03/25/17 10:04 Zosyn 2.25gm Ivpb (Premix) IVPB 100 mls/hr Q8H-IV [facility] Administration Protocol Miscellaneous 1 each 03/23/17 17:49 Duragesic Patch Waste MC PRN PRN PAIN Morphine Sulfate 2 mg 03/21/17 15:12 03/25/17 04:26 Morphine Sulfate IVPUSH 2 mg Q6H PRN Administration PAIN Ranitidine HCl 150 mg 03/18/17 10:00 03/25/17 10:09 Zantac Oral Solution - PO 150 mg DAILY [facility] Administration Rosuvastatin Calcium 5 mg 03/23/17 22:00 03/24/17 21:48 Crestor - PO 5 mg HS [facility] Administration Sucralfate 0.5 gm 03/17/17 22:00 03/25/17 10:09 Carafate Oral Suspension - PO 0.5 gm BID [facility] Administration Objective: Vital Signs Period Temp Pulse Resp BP Sys/Coleman Pulse Ox Last 24 Hr 97.5 F-98.6 F 68-93 18-20 88-129/45-83 96 Physical Exam: Refused exam Imagin03/14/2017: CT/Abdomen CTA AOR & RLE Runoff: Extensive severe diffuse aortoiliac , femoro-popliteal and intrapoplitea, occluded left SFA and mucus occlusion of flow in a severely diseased the renal artery demonstrates at lease 70-90% stenosis. Occluded left ENMANUEL and two vessel runoff provided by [employer] and PA however degree of disease and stenosis cannot be discerned due to calcification and hardening artifacts. enlarged prostate. Small right sided pleural effusion with severe right lung base atelectic changes vs pnemonic infiltrates. 03/14/2017: US/Duplex arterial legs, limited ultrasound: Extensive artheroscleoric disease with occlusion of the SFA. There is weak, monosphasic flow present within the popliteal and posterior tibial arteries. Assessment: This is a 77 year old male with PMHx of ESRD on HD (,,), HTN, DVT, right AKA 3 months ago, left 2nd digit amputation lower extremity, who presented to the ED for worsening left foot pain. Plan: 1) Left SFA occlusion, left foot gangrene, severe sepsis - Imaging as above - S/p aortogram with LLE angiogram 03/17 - S/p LLE angiogram, SFA DCB angioplasty, SFA Stent placement. 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 2) ESRD - Continue HD as scheduled - Renal diet 3) A.fib, chronic - Off heparin gtt 2/2 severe thrombocytopenia 4) AAA - F/u outpatient 5) Chronic anemia - Monitor Hgb - Continue to monitor 6) F/E/N: - Monitor electrolytes - Renal diet 7) Prophylaxis: - Hold all chemical dvt prophylaxis 2/2 severe thrombocytopenia 8) Dispo: - Requires continued inpatient care CODE STATUS: FULL CODE Visit type - Emergency Visit Emergency Visit: Yes ED Registration Date: 03/14/17 Care time: The patient presented to the Emergency Department on the above date and was hospitalized for further evaluation of their emergent condition. - New Patient This patient is new to me today: Yes Date on this admission: 03/30/17 - Critical Care Critical Care patient: No
--- NOTE | 2017-03-25 14:24 | PN ---
Progress Note (short form) - Note Progress Note: Renal follow up for ESRD on HD Pt seen and examined at the bedside awake and alert son at the bedside no cp, fever, chills, N/V/D Vital Signs Temperature 97.5 F L 03/25/17 05:13 Pulse Rate 74 03/25/17 10:00 Respiratory Rate 18 03/25/17 10:00 Blood Pressure 128/67 03/25/17 10:00 O2 Sat by Pulse Oximetry (%) 96 03/25/17 09:00 Intake & Output 03/22/17 03/23/17 03/24/17 03/25/17 23:59 23:59 23:59 23:59 Intake Total 100 500 680 50 Output Total 0 0 Balance 100 500 680 50 Weight 140 lb 5 oz 141 lb 143 lb 4 oz 143 lb 6 oz distress from pain RRR CTA soft NT/ND Sacral dressing in place No LE kumar foot in dressing CBC, BMP 03/25/17 08:04 03/25/17 08:04 Current Medications Alprazolam (Xanax -) 0.5 mg PO HS [facility] Last Admin: 03/24/17 21:46 Dose: 0.5 mg Aspirin (Asa -) 81 mg PO DAILY [facility] Last Admin: 03/25/17 10:09 Dose: 81 mg Budesonide/Formoterol Fumarate (Symbicort 80/4.5mcg -) 2 puff IH BID [facility] Last Admin: 03/24/17 21:49 Dose: 2 puff Carvedilol (Coreg -) 3.125 mg PO BID [facility] Last Admin: 03/25/17 10:09 Dose: 3.125 mg Collagenase (Santyl -) 1 applic TP DAILY [facility] Last Admin: 03/24/17 10:09 Dose: 1 applic Diphenhydramine HCl (Benadryl -) 25 mg PO Q6H PRN PRN Reason: FOR ITCHING Last Admin: 03/24/17 22:23 Dose: 25 mg Docusate Sodium (Colace -) 300 mg PO HS [facility] Last Admin: 03/24/17 21:47 Dose: 300 mg Fentanyl (Duragesic 25mcg Patch -) 1 patch TD Q72H [facility] Stop: 03/30/17 17:49 Last Admin: 03/23/17 19:49 Dose: 1 patch Piperacillin/Tazobactam/Dextrose (Zosyn 2.25gm Ivpb (Premix)) 50 mls @ 100 mls/ hr IVPB Q8H-IV [facility] PRN Reason: Protocol Last Admin: 03/25/17 10:04 Dose: 100 mls/hr Miscellaneous (Duragesic Patch Waste) 1 each [facility] PRN PRN PRN Reason: PAIN Morphine Sulfate (Morphine Sulfate) 2 mg IVPUSH Q6H PRN PRN Reason: PAIN Last Admin: 03/25/17 04:26 Dose: 2 mg Ranitidine HCl (Zantac Oral Solution -) 150 mg PO DAILY [facility] Last Admin: 03/25/17 10:09 Dose: 150 mg Rosuvastatin Calcium (Crestor -) 5 mg PO HS [facility] Last Admin: 03/24/17 21:48 Dose: 5 mg Sucralfate (Carafate Oral Suspension -) 0.5 gm PO BID [facility] Last Admin: 03/25/17 10:09 Dose: 0.5 gm 77 year old gentleman with PMhx of ESRD on HD (TTS), Hypertension, DVT, PVD s/p right AKA and left toe amputation who presented to the ED with complaints of pain in his left foot and admitted fro soft tissue infection of the foot with concern for worsening ischemic disease. #ESRD on HD s/p dialysis yesterday no acute indication for dialysis today next treatment is tomorrow spoke to son and asked him to accompany him during dialysis dose all meds for intermittent HD #Wound/Ischemia of left LE s/p angioplasty and stenting continue Abx as per ID, VAnco to be redosed after HD #Acute on Chronic Anemia likely due to infection but need to r/o blood loss s/p transfusion wth good response will continue IVANIA with HD #Sacral stage 1 decubitis continue supportive care fentayl patch Thank you Raghu Boogie DO Problem List - Problems (1) Critical lower limb ischemia Code(s): I99.8 - OTHER DISORDER OF CIRCULATORY SYSTEM (2) Open wnd foot-complicated Code(s): S91.309A - UNSPECIFIED OPEN WOUND, UNSPECIFIED FOOT, INITIAL ENCOUNTER (3) HTN (hypertension) Code(s): I10 - ESSENTIAL (PRIMARY) HYPERTENSION Qualifiers: Hypertension type: essential hypertension Qualified Code(s): I10 - Essential (primary) hypertension (4) ESRD (end stage renal disease) Code(s): N18.6 - END STAGE RENAL DISEASE (5) Anemia Code(s): D64.9 - ANEMIA, UNSPECIFIED
--- NOTE | 2017-03-25 14:32 | PN ---
Progress Note (short form) - Note Progress Note: PULMONARY VSS/AFEBRILE/ 128/67 ANICTERIC [employer]AT[employer]ED [employer] RHONCHI S1S2 SOFT/NONTENDER RIGHT AKA/LEFT FOOT BANDAGED LABS/MEDS/NOTES/IMAGING/MICRO REVIEWED Foot Wound Infection Peripheral Artery Disease ESRD on HD Atrial Fibrillation Severe LV Systolic Dysfunction Pulmonary HTN therapeutic INR Thrombocytopenia AAA Liver Cirrhosis Lung Nodule s/p R AKA - continue antibiotics - wound care - HD per renal - monitor CBC - transfuse PRBC, platelets as needed - O2 as needed - outpt f/u of lung nodule Cesar MEEK MD
--- NOTE | 2017-03-25 14:49 | PN ---
Progress Note, Physician History of Present Illness: stable no new issues sitting looks much better - Current Medication List Current Medications: Active Medications Alprazolam (Xanax -) 0.5 mg PO HS [facility] Last Admin: 03/24/17 21:46 Dose: 0.5 mg Aspirin (Asa -) 81 mg PO DAILY [facility] Last Admin: 03/25/17 10:09 Dose: 81 mg Budesonide/Formoterol Fumarate (Symbicort 80/4.5mcg -) 2 puff IH BID [facility] Last Admin: 03/24/17 21:49 Dose: 2 puff Carvedilol (Coreg -) 3.125 mg PO BID [facility] Last Admin: 03/25/17 10:09 Dose: 3.125 mg Collagenase (Santyl -) 1 applic TP DAILY [facility] Last Admin: 03/24/17 10:09 Dose: 1 applic Diphenhydramine HCl (Benadryl -) 25 mg PO Q6H PRN PRN Reason: FOR ITCHING Last Admin: 03/24/17 22:23 Dose: 25 mg Docusate Sodium (Colace -) 300 mg PO [facility] Last Admin: 03/24/17 21:47 Dose: 300 mg Epoetin Nash (Procrit -) 10,000 unit IVPUSH ONCE ONE Stop: 03/26/17 06:01 Fentanyl (Duragesic 25mcg Patch -) 1 patch TD Q72H [facility] Stop: 03/30/17 17:49 Last Admin: 03/23/17 19:49 Dose: 1 patch Piperacillin/Tazobactam/Dextrose (Zosyn 2.25gm Ivpb (Premix)) 50 mls @ 100 mls/ hr IVPB Q8H-IV [facility] PRN Reason: Protocol Last Admin: 03/25/17 10:04 Dose: 100 mls/hr Vancomycin HCl 1,000 mg/ (Dextrose) 250 mls @ 250 mls/hr IVPB ONCE ONE PRN Reason: Protocol Stop: 03/26/17 06:59 Miscellaneous (Duragesic Patch Waste) 1 each [facility] PRN PRN PRN Reason: PAIN Morphine Sulfate (Morphine Sulfate) 2 mg IVPUSH Q6H PRN PRN Reason: PAIN Last Admin: 03/25/17 04:26 Dose: 2 mg Ranitidine HCl (Zantac Oral Solution -) 150 mg PO DAILY [facility] Last Admin: 03/25/17 10:09 Dose: 150 mg Rosuvastatin Calcium (Crestor -) 5 mg PO HS [facility] Last Admin: 03/24/17 21:48 Dose: 5 mg Sucralfate (Carafate Oral Suspension -) 0.5 gm PO BID [facility] Last Admin: 03/25/17 10:09 Dose: 0.5 gm - Objective Vital Signs: Vital Signs Temperature 97.5 F L 03/25/17 05:13 Pulse Rate 74 03/25/17 10:00 Respiratory Rate 18 03/25/17 10:00 Blood Pressure 128/67 03/25/17 10:00 O2 Sat by Pulse Oximetry (%) 96 03/25/17 09:00 Constitutional: Yes: Calm, Mild Distress Cardiovascular: Yes: Regular Rate and Rhythm Respiratory: Yes: Regular, CTA Bilaterally Gastrointestinal: Yes: Normal Bowel Sounds, Soft Musculoskeletal: Yes: Other Extremities: Yes: Other Wound/Incision: Yes: Dressing Dry and Intact, Draining Neurological: Yes: Alert Psychiatric: Yes: Alert, Oriented Labs: CBC, BMP 03/25/17 08:04 03/25/17 08:04 INR, PTT INR 1.98 (0.82-1.09) H D 03/25/17 06:00 Fibrinogen 394.0 mg/dL (238-498) 03/23/17 06:20 Assessment/Plan Problem List - Problems (1) Anemia Code(s): D64.9 - ANEMIA, UNSPECIFIED (2) Critical lower limb ischemia Code(s): I99.8 - OTHER DISORDER OF CIRCULATORY SYSTEM (3) ESRD (end stage renal disease) Code(s): N18.6 - END STAGE RENAL DISEASE (4) HTN (hypertension) Code(s): I10 - ESSENTIAL (PRIMARY) HYPERTENSION (5) Open wnd foot-complicated Code(s): S91.309A - UNSPECIFIED OPEN WOUND, UNSPECIFIED FOOT, INITIAL ENCOUNTER plan ct abx await for final plan for surgery ct dialysis rest as per primary
[2017-03-25] MEDS: COLLAGENASE CLOSTRIDIUM HIST. 30 GRAMS TUBE TP SCH (15:24)
--- NOTE | 2017-03-25 17:29 | PN ---
Progress Note (short form) - Note Progress Note: Patient seen amd examined Complains of LE pains. Does get intermittent relief with morphine. Last Vital Signs Temp Pulse Resp BP Pulse Ox 97.4 F L 90 18 129/62 96 03/25/17 15:12 03/25/17 15:12 03/25/17 15:12 03/25/17 15:12 03/25/17 09:00 No icterus Lungs - decreased breath sounds bilaterally Cor- atrial fib Soft abd R-AKA Left foot dressed CBC, BMP 03/25/17 08:04 03/25/17 08:04 Current Medications Generic Name Dose Route Start Last Admin Trade Name Freq PRN Reason Stop Dose Admin Alprazolam 0.5 mg 03/20/17 22:00 03/24/17 21:46 Xanax - PO 0.5 mg HS [facility] Administration Aspirin 81 mg 03/18/17 10:00 03/25/17 10:09 Asa - PO 81 mg DAILY [facility] Administration Budesonide/Formoterol Fumarate 2 puff 03/17/17 22:00 03/25/17 11:24 Symbicort 80/4.5mcg - IH 2 puff BID [facility] Administration Carvedilol 3.125 mg 03/21/17 15:27 03/25/17 10:09 Coreg - PO 3.125 mg BID [facility] Administration Collagenase 1 applic 03/18/17 11:00 03/25/17 15:24 Santyl - TP 1 applic DAILY [facility] Administration Diphenhydramine HCl 25 mg 03/17/17 13:24 03/24/17 22:23 Benadryl - PO 25 mg Q6H PRN Administration FOR ITCHING Docusate Sodium 300 mg 03/22/17 22:00 03/24/17 21:47 Colace - PO 300 mg HS [facility] Administration Epoetin Nash 10,000 unit 03/26/17 06:00 Procrit - IVPUSH 03/26/17 06:01 ONCE ONE Fentanyl 1 patch 03/23/17 18:00 03/23/17 19:49 Duragesic 25mcg Patch - TD 03/30/17 17:49 1 patch Q72H [facility] Administration Piperacillin/Tazobactam/Dextrose 50 mls @ 100 mls/hr 03/17/17 15:15 03/25/17 10:04 Zosyn 2.25gm Ivpb (Premix) IVPB 100 mls/hr Q8H-IV [facility] Administration Protocol Vancomycin HCl 1,000 mg/ 250 mls @ 250 mls/hr 03/26/17 06:00 Dextrose IVPB 03/26/17 06:59 ONCE ONE Protocol Miscellaneous 1 each 03/23/17 17:49 Duragesic Patch Waste [facility] PRN PRN PAIN Morphine Sulfate 2 mg 03/21/17 15:12 03/25/17 15:23 Morphine Sulfate IVPUSH 2 mg Q6H PRN Administration PAIN Ranitidine HCl 150 mg 03/18/17 10:00 03/25/17 10:09 Zantac Oral Solution - PO 150 mg DAILY [facility] Administration Rosuvastatin Calcium 5 mg 03/23/17 22:00 03/24/17 21:48 Crestor - PO 5 mg HS [facility] Administration Sucralfate 0.5 gm 03/17/17 22:00 03/25/17 10:09 Carafate Oral Suspension - PO 0.5 gm BID [facility] Administration Impression: LE wound-- for amputation CKD Atrial Fib CHF Anemia Thrombocytopenia-- improved Plan: will need amputation extent per vascular platelet count improved and can consider institution of heparin To consider possible evaluation for hypercoagulability
[2017-03-25 20:58] LABS: MCH 27.9 pg (25.7-33.7); MCHC 31.7 g/dl (32.0-35.9); MEAN CELL VOLUME 87.8 fl (80-96); MEAN PLT VOLUME 7.8 fl (7.5-11.1); PLATELET COUNT 70 K/MM3 (134-434); RDW 16.5 % (11.9-15.9); WHITE BLOOD COUNT 7.6 K/mm3 (4.0-10.0)
[2017-03-25] MEDS ORDERED: PT OWN MED DRAWER 7, Y5N ONE (21:48)
[2017-03-25] MEDS: ALPRAZolam 0.25 MG TABLET PO SCH (21:52)
[2017-03-25] MEDS: ROSUVASTATIN CA 5 MG TABLET (FP) PO SCH (21:52)
[2017-03-25] MEDS: DOCUSATE SODIUM 100 MG CAPSULE (FP) PO SCH (21:53)
[2017-03-26] MEDS ORDERED: PT OWN MED DRAWER 7, Y5N ONE ×4 (02:11→21:36)
[2017-03-26] MEDS: PIPERACILLIN/TAZOB 2.25 GM 50 ML IVPB SCH ×3 (02:12→17:52)
[2017-03-26] MEDS: morphine SULFATE 4 MG/ML VIAL IVPUSH PRN (06:35)
[2017-03-26] MEDS: SUCRALFATE 1 GM/10 ML UNIT DOSE CUPS PO SCH ×2 (09:00→21:45)
[2017-03-26] MEDS: ASPIRIN 81 MG CHEWABLE TABLETS PO SCH (09:00)
[2017-03-26] MEDS: RANITIDINE HCL 150 MG/10 ML UNIT-DOSE PO SCH (09:01)
[2017-03-26] MEDS: BUDESONIDE/FORMETEROL FUMARATE 80/4.5 mcg INHALER IH SCH ×2 (09:11→21:46)
[2017-03-26] MEDS: COLLAGENASE CLOSTRIDIUM HIST. 30 GRAMS TUBE TP SCH (10:34)
[2017-03-26] MEDS: CARVEDILOL 3.125 MG TABLET (FP) PO SCH ×2 (11:03→21:47)
--- NOTE | 2017-03-26 11:21 | PN ---
Progress Note (short form) - Note Progress Note: Subjective: The patient was seen and examined at the bedside he is sitting up in bed stating "go away". For HD today Current Medications Generic Name Dose Route Start Last Admin Trade Name Freq PRN Reason Stop Dose Admin Alprazolam 0.5 mg 03/20/17 22:00 03/25/17 21:52 Xanax - PO 0.5 mg HS [facility] Administration Aspirin 81 mg 03/18/17 10:00 03/26/17 09:00 Asa - PO 81 mg DAILY [facility] Administration Budesonide/Formoterol Fumarate 2 puff 03/17/17 22:00 03/26/17 09:11 Symbicort 80/4.5mcg - IH 2 puff BID [facility] Administration Carvedilol 3.125 mg 03/21/17 15:27 03/26/17 11:03 Coreg - PO Not Given BID [facility] Collagenase 1 applic 03/18/17 11:00 03/26/17 10:34 Santyl - TP 1 applic DAILY [facility] Administration Diphenhydramine HCl 25 mg 03/17/17 13:24 03/24/17 22:23 Benadryl - PO 25 mg Q6H PRN Administration FOR ITCHING Docusate Sodium 300 mg 03/22/17 22:00 03/25/17 21:53 Colace - PO Not Given HS [facility] Epoetin Nash 10,000 unit 03/26/17 06:00 Procrit - IVPUSH 03/26/17 06:01 ONCE ONE Fentanyl 1 patch 03/23/17 18:00 03/23/17 19:49 Duragesic 25mcg Patch - TD 03/30/17 17:49 1 patch Q72H [facility] Administration Piperacillin/Tazobactam/Dextrose 50 mls @ 100 mls/hr 03/17/17 15:15 03/26/17 09:08 Zosyn 2.25gm Ivpb (Premix) IVPB 100 mls/hr Q8H-IV [facility] Administration Protocol Vancomycin HCl 1,000 mg/ 250 mls @ 250 mls/hr 03/26/17 06:00 Dextrose IVPB 03/26/17 06:59 ONCE ONE Protocol Miscellaneous 1 each 03/23/17 17:49 Duragesic Patch Waste [facility] PRN PRN PAIN Ranitidine HCl 150 mg 03/18/17 10:00 11/11/17 09:01 Zantac Oral Solution - PO 150 mg DAILY [facility] Administration Rosuvastatin Calcium 5 mg 03/23/17 22:00 03/25/17 21:52 Crestor - PO 5 mg HS [facility] Administration Sucralfate 0.5 gm 03/17/17 22:00 03/26/17 09:00 Carafate Oral Suspension - PO Not Given BID [facility] Objective: Vital Signs Period Temp Pulse Resp BP Sys/Coleman Pulse Ox Last 24 Hr 97.4 F-98.4 F 82-92 18-20 84-132/42-62 96 Physical Exam: Refused exam CBCD WBC 7.6 K/mm3 (4.0-10.0) 03/25/17 19:30 RBC 3.28 M/mm3 (4.00-5.60) L 03/25/17 19:30 Hgb 9.1 GM/dL (11.7-16.9) L 03/25/17 19:30 Hct 28.8 % (35.4-49) L 03/25/17 19:30 MCV 87.8 fl (80-96) 03/25/17 19:30 MCHC 31.7 g/dl (32.0-35.9) L 03/25/17 19:30 RDW 16.5 % (11.9-15.9) H 03/25/17 19:30 Plt Count 70 K/MM3 (134-434) L 03/25/17 19:30 MPV 7.8 fl (7.5-11.1) 03/25/17 19:30 CMP Sodium 144 mmol/L (136-145) 03/25/17 08:04 Potassium 3.7 mmol/L (3.5-5.1) D 03/25/17 08:04 Chloride 103 mmol/L (98-107) 03/25/17 08:04 Carbon Dioxide 25 mmol/L (21-32) 03/25/17 08:04 Anion Gap 16 (8-16) 03/25/17 08:04 BUN 39 mg/dL (7-18) H D 03/25/17 08:04 Creatinine 7.1 mg/dL (0.7-1.3) H D 03/25/17 08:04 Creat Clearance w eGFR 7.82 (>60) 03/23/17 06:20 Random Glucose 81 mg/dL (74-106) D 03/25/17 08:04 Calcium 7.3 mg/dL (8.5-10.1) L 03/25/17 08:04 Total Bilirubin 0.8 mg/dL (0.2-1.0) 03/23/17 06:20 AST 14 U/L (15-37) L D 03/23/17 06:20 ALT 7 U/L (12-78) L 03/23/17 06:20 Alkaline Phosphatase 84 U/L (45-117) 03/23/17 06:20 Total Protein 4.8 g/dl (6.4-8.2) L 03/23/17 06:20 Albumin 2.0 g/dl (3.4-5.0) L 03/23/17 06:20 CARDIAC ENZYMES Creatine Kinase 17 IU/L (39-308) L 03/14/17 01:15 Troponin I 0.03 ng/ml (0.00-0.05) 03/14/17 01:15 Imagin03/14/2017: CT/Abdomen CTA AOR & RLE Runoff: Extensive severe diffuse aortoiliac , femoro-popliteal and intrapoplitea, occluded left SFA and mucus occlusion of flow in a severely diseased the renal artery demonstrates at lease 70-90% stenosis. Occluded left ENMANUEL and two vessel runoff provided by [employer] and PA however degree of disease and stenosis cannot be discerned due to calcification and hardening artifacts. enlarged prostate. Small right sided pleural effusion with severe right lung base atelectic changes vs pnemonic infiltrates. 03/14/2017: US/Duplex arterial legs, limited ultrasound: Extensive artheroscleoric disease with occlusion of the SFA. There is weak, monosphasic flow present within the popliteal and posterior tibial arteries. Assessment: This is a 77 year old male with PMHx of ESRD on HD (,,), HTN, DVT, right AKA 3 months ago, left 2nd digit amputation lower extremity, who presented to the ED for worsening left foot pain. Plan: 1) Left SFA occlusion, left foot gangrene, severe sepsis - Imaging as above - S/p aortogram with LLE angiogram 03/17 - S/p LLE angiogram, SFA DCB angioplasty, SFA Stent placement. Retrograde puncture from left popliteal artery - Will need BKA: cardiac clearance complete - Continue Zosyn - Vanco per level/ID - Pain management - Appreciate ID consult - Appreciate vascular surgery consult Hx of DVT - Off heparin gtt now, severe thrombocytopenia 2) Severe thrombocytopenia - HIT negative - Normal platelet transfusion threshold - Prolonged PTT, discussed with Dr. Santos yesterday: will obtain mixing studies and follow PTT. 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 2) ESRD - Continue HD as scheduled - Renal diet 3) A.fib, chronic - Off heparin gtt 2/2 severe thrombocytopenia 4) AAA - F/u outpatient 5) Chronic anemia - Monitor Hgb - Continue to monitor 6) F/E/N: - Monitor electrolytes - Renal diet 7) Prophylaxis: - Hold all chemical dvt prophylaxis 2/2 severe thrombocytopenia 8) Dispo: - Requires continued inpatient care CODE STATUS: FULL CODE Visit type - Emergency Visit Emergency Visit: Yes ED Registration Date: 03/14/17 Care time: The patient presented to the Emergency Department on the above date and was hospitalized for further evaluation of their emergent condition. - New Patient This patient is new to me today: No - Critical Care Critical Care patient: No
--- NOTE | 2017-03-26 13:23 | PN ---
Progress Note (short form) - Note Progress Note: Progress Note (short form) - Note Progress Note: Patient seen amd examined Complains of LE pains. He wants to get out of bed and seems to be confused Vital Signs Period Temp Pulse Resp BP Sys/Coleman Pulse Ox Last 24 Hr 97.4 F-98.4 F 82-92 18-20 84-132/42-62 96 has multiple small hematomas R-AKA Left foot dressed CBC, BMP 03/25/17 19:30 03/25/17 08:04 Current Medications Generic Name Dose Route Start Last Admin Trade Name Freq PRN Reason Stop Dose Admin Alprazolam 0.5 mg 03/20/17 22:00 03/25/17 21:52 Xanax - PO 0.5 mg HS [facility] Administration Aspirin 81 mg 03/18/17 10:00 03/26/17 09:00 Asa - PO 81 mg DAILY [facility] Administration Budesonide/Formoterol Fumarate 2 puff 03/17/17 22:00 03/26/17 09:11 Symbicort 80/4.5mcg - IH 2 puff BID [facility] Administration Carvedilol 3.125 mg 03/21/17 15:27 03/26/17 11:03 Coreg - PO Not Given BID [facility] Collagenase 1 applic 03/18/17 11:00 03/26/17 10:34 Santyl - TP 1 applic DAILY [facility] Administration Diphenhydramine HCl 25 mg 03/17/17 13:24 03/24/17 22:23 Benadryl - PO 25 mg Q6H PRN Administration FOR ITCHING Docusate Sodium 300 mg 03/22/17 22:00 03/25/17 21:53 Colace - PO Not Given HS [facility] Epoetin Nash 10,000 unit 03/26/17 06:00 Procrit - IVPUSH 03/26/17 06:01 ONCE ONE Fentanyl 1 patch 03/23/17 18:00 03/23/17 19:49 Duragesic 25mcg Patch - TD 03/30/17 17:49 1 patch Q72H [facility] Administration Piperacillin/Tazobactam/Dextrose 50 mls @ 100 mls/hr 03/17/17 15:15 03/26/17 09:08 Zosyn 2.25gm Ivpb (Premix) IVPB 100 mls/hr Q8H-IV [facility] Administration Protocol Vancomycin HCl 1,000 mg/ 250 mls @ 250 mls/hr 03/26/17 06:00 Dextrose IVPB 03/26/17 06:59 ONCE ONE Protocol Miscellaneous 1 each 03/23/17 17:49 Duragesic Patch Waste MC PRN PRN PAIN Ranitidine HCl 150 mg 03/18/17 10:00 03/26/17 09:01 Zantac Oral Solution - PO 150 mg DAILY [facility] Administration Rosuvastatin Calcium 5 mg 03/23/17 22:00 03/25/17 21:52 Crestor - PO 5 mg HS [facility] Administration Sucralfate 0.5 gm 03/17/17 22:00 03/26/17 09:00 Carafate Oral Suspension - PO Not Given BID [facility] Impression: LE wound-- for amputation CKD Atrial Fib CHF Anemia Thrombocytopenia-- improved Plan: Will need amputation per vascular To consider possible evaluation for hypercoagulability, with prolonged PTT and risk of falls the benefits are not in favor of AC at this time
[2017-03-26] MEDS ORDERED: EPOETIN ALFA 10,000 UNIT/1 ML VIAL IVPUSH ONE (15:00)
[2017-03-26 15:12] LABS: ALBUMIN 1.9 g/dl (3.4-5.0); ANION GAP 13 (8-16); BILIRUBIN,TOTAL 0.5 mg/dL (0.2-1.0); CALCIUM 7.9 mg/dL (8.5-10.1); CO2 25 mmol/L (21-32); GLUCOSE,RANDOM 104 mg/dL (74-106); SGOT/AST 17 U/L (15-37); SGPT/ALT 9 U/L (12-78); TOT PROT 4.6 g/dl (6.4-8.2)
[2017-03-26 15:17] LABS: ALK PHOS 80 U/L (45-117)
[2017-03-26 15:20] LABS: CREATININE 8.3 mg/dL (0.7-1.3)
[2017-03-26] MEDS ORDERED: VANCOMYCIN 500 MG in DEXTROSE 5%-WATER - 100 ML IVPB ONE (15:30)
--- NOTE | 2017-03-26 15:58 | PN ---
Progress Note (short form) - Note Progress Note: Chief Complaint: Events noted, notes reviewed, no distress History of Present Illness: Seen and examined. Events noted, notes reviewed, no distress Echocardiography reveals severely reduced LV systolic function, severe TR, moderate pulmonary HTN, mild AR, severely dilated LA and RA - Current Medication List Current Medications Alprazolam (Xanax -) 0.5 mg PO [facility] Last Admin: 03/25/17 21:52 Dose: 0.5 mg Aspirin (Asa -) 81 mg PO DAILY [facility] Last Admin: 03/26/17 09:00 Dose: 81 mg Budesonide/Formoterol Fumarate (Symbicort 80/4.5mcg -) 2 puff IH BID [facility] Last Admin: 03/26/17 09:11 Dose: 2 puff Carvedilol (Coreg -) 3.125 mg PO BID [facility] Last Admin: 03/26/17 11:03 Dose: Not Given Collagenase (Santyl -) 1 applic TP DAILY [facility] Last Admin: 03/26/17 10:34 Dose: 1 applic Diphenhydramine HCl (Benadryl -) 25 mg PO Q6H PRN PRN Reason: FOR ITCHING Last Admin: 03/24/17 22:23 Dose: 25 mg Docusate Sodium (Colace -) 300 mg PO [facility] Last Admin: 03/25/17 21:53 Dose: Not Given Fentanyl (Duragesic 25mcg Patch -) 1 patch TD Q72H [facility] Stop: 03/30/17 17:49 Last Admin: 03/23/17 19:49 Dose: 1 patch Piperacillin/Tazobactam/Dextrose (Zosyn 2.25gm Ivpb (Premix)) 50 mls @ 100 mls/ hr IVPB Q8H-IV [facility] PRN Reason: Protocol Last Admin: 03/26/17 09:08 Dose: 100 mls/hr Vancomycin HCl 500 mg/ (Dextrose) 100 mls @ 100 mls/hr IVPB ONCE ONE PRN Reason: Protocol Stop: 03/26/17 16:29 Miscellaneous (Duragesic Patch Waste) 1 each MC PRN PRN PRN Reason: PAIN Ranitidine HCl (Zantac Oral Solution -) 150 mg PO DAILY [facility] Last Admin: 03/26/17 09:01 Dose: 150 mg Rosuvastatin Calcium (Crestor -) 5 mg PO [facility] Last Admin: 03/25/17 21:52 Dose: 5 mg Sucralfate (Carafate Oral Suspension -) 0.5 gm PO BID [facility] Last Admin: 03/26/17 09:00 Dose: Not Given - Objective Vital Signs: Last Vital Signs Temp Pulse Resp BP Pulse Ox 98.8 F 88 18 113/54 96 03/26/17 13:55 03/26/17 15:00 03/26/17 15:00 03/26/17 15:00 03/25/17 21:00 Intake & Output 03/23/17 03/24/17 03/25/17 03/26/17 23:59 23:59 23:59 23:59 Intake Total 533 032 0326 100 Output Total 0 Balance 992 740 5065 100 Weight 141 lb 143 lb 4 oz 143 lb 6 oz 140 lb 3 oz Constitutional: No Distress, Calm Neck: Supple Negative JVD Cardiovascular: S1 S2 Irregularly Irregular Grade 2/6 SM Respiratory: Diminished Gastrointestinal: Soft Benign Normal Bowel Sounds Ext: No Labs: CBC, BMP 03/25/17 19:30 03/26/17 14:00 Assessment/Plan ASSESSMENT: 1. PAD post right AKA and left toe amputation, occluded left SFA post angioplasty/stent, planned for left BKA 2. CAD angina pectoris 3. Dilated cardiomyopathy with chronic class I-II NYHA classification LV systolic failure, compensated/ euvolemic 4. Persistent atrial fibrillation [id number] score of 4 5. Severe TR with pulmonary HTN 6. HTN 7. ESRD on HD 8. History of DVT 9. Anemia 10. Thrombocytopenia PLAN: 1. Continue Coreg 2. Continue ASA, continue to hold Coumadin pending intervention 3. Continue Crestor 4. HD as per renal srervice 5. As outlined patient is at intermediate clinical risk for intermediate risk procedure, but given current absence of symptoms of acute coronary syndrome and/ or de-compensated congestive heart failure and/or malignant arrhythmia, there are no absolute cardiovascular contraindications in proceeding with the planned BKA Balaji Hess M.D.
--- NOTE | 2017-03-26 17:04 | PN ---
Progress Note, Physician History of Present Illness: stable no new issues being dialyzed anxious - Current Medication List Current Medications: Active Medications Alprazolam (Xanax -) 0.5 mg PO HS [facility] Last Admin: 03/25/17 21:52 Dose: 0.5 mg Aspirin (Asa -) 81 mg PO DAILY [facility] Last Admin: 03/26/17 09:00 Dose: 81 mg Budesonide/Formoterol Fumarate (Symbicort 80/4.5mcg -) 2 puff IH BID [facility] Last Admin: 03/26/17 09:11 Dose: 2 puff Carvedilol (Coreg -) 3.125 mg PO BID [facility] Last Admin: 03/26/17 11:03 Dose: Not Given Collagenase (Santyl -) 1 applic TP DAILY [facility] Last Admin: 03/26/17 10:34 Dose: 1 applic Diphenhydramine HCl (Benadryl -) 25 mg PO Q6H PRN PRN Reason: FOR ITCHING Last Admin: 03/24/17 22:23 Dose: 25 mg Docusate Sodium (Colace -) 300 mg PO HS [facility] Last Admin: 03/25/17 21:53 Dose: Not Given Fentanyl (Duragesic 25mcg Patch -) 1 patch TD Q72H [facility] Stop: 03/30/17 17:49 Last Admin: 03/23/17 19:49 Dose: 1 patch Piperacillin/Tazobactam/Dextrose (Zosyn 2.25gm Ivpb (Premix)) 50 mls @ 100 mls/ hr IVPB Q8H-IV [facility] PRN Reason: Protocol Last Admin: 03/26/17 09:08 Dose: 100 mls/hr Miscellaneous (Duragesic Patch Waste) 1 each MC PRN PRN PRN Reason: PAIN Ranitidine HCl (Zantac Oral Solution -) 150 mg PO DAILY [facility] Last Admin: 03/26/17 09:01 Dose: 150 mg Rosuvastatin Calcium (Crestor -) 5 mg PO HS [facility] Last Admin: 03/25/17 21:52 Dose: 5 mg Sucralfate (Carafate Oral Suspension -) 0.5 gm PO BID [facility] Last Admin: 03/26/17 09:00 Dose: Not Given - Objective Vital Signs: Vital Signs Temperature 98.8 F 03/26/17 13:55 Pulse Rate 81 03/26/17 17:00 Respiratory Rate 18 03/26/17 17:00 Blood Pressure 92/38 03/26/17 17:00 O2 Sat by Pulse Oximetry (%) 96 03/25/17 21:00 Constitutional: Yes: Anxious, Mild Distress Cardiovascular: Yes: Regular Rate and Rhythm Respiratory: Yes: Regular, CTA Bilaterally Gastrointestinal: Yes: Normal Bowel Sounds, Soft Musculoskeletal: Yes: Other Extremities: Yes: Other Wound/Incision: Yes: Dressing Dry and Intact Neurological: Yes: Alert Psychiatric: Yes: Alert Labs: CBC, BMP 03/25/17 19:30 03/26/17 14:00 INR, PTT INR 1.98 (0.82-1.09) H D 03/25/17 06:00 Fibrinogen 394.0 mg/dL (238-498) 03/23/17 06:20 Assessment/Plan Problem List - Problems (1) Anemia Code(s): D64.9 - ANEMIA, UNSPECIFIED (2) Critical lower limb ischemia Code(s): I99.8 - OTHER DISORDER OF CIRCULATORY SYSTEM (3) ESRD (end stage renal disease) Code(s): N18.6 - END STAGE RENAL DISEASE (4) HTN (hypertension) Code(s): I10 - ESSENTIAL (PRIMARY) HYPERTENSION (5) Open wnd foot-complicated Code(s): S91.309A - UNSPECIFIED OPEN WOUND, UNSPECIFIED FOOT, INITIAL ENCOUNTER plan ct abx await for final plan for surgery ct dialysis rest as per primary monitor [place]
[2017-03-26] MEDS: fentaNYL 25mcg/hr PATCH.TD72 TD SCH (17:51)
[2017-03-26] MEDS: FENTANYL PATCH WASTE MC PRN (17:52)
--- NOTE | 2017-03-26 19:09 | PN ---
Progress Note (short form) - Note Progress Note: seen while on dialysis ESRD on HD Gangrenous toes Active Medications Alprazolam (Xanax -) 0.5 mg PO HS [facility] Last Admin: 03/25/17 21:52 Dose: 0.5 mg Aspirin (Asa -) 81 mg PO DAILY [facility] Last Admin: 03/26/17 09:00 Dose: 81 mg Budesonide/Formoterol Fumarate (Symbicort 80/4.5mcg -) 2 puff IH BID [facility] Last Admin: 03/26/17 09:11 Dose: 2 puff Carvedilol (Coreg -) 3.125 mg PO BID [facility] Last Admin: 03/26/17 11:03 Dose: Not Given Collagenase (Santyl -) 1 applic TP DAILY [facility] Last Admin: 03/26/17 10:34 Dose: 1 applic Diphenhydramine HCl (Benadryl -) 25 mg PO Q6H PRN PRN Reason: FOR ITCHING Last Admin: 03/24/17 22:23 Dose: 25 mg Docusate Sodium (Colace -) 300 mg PO [facility] Last Admin: 03/25/17 21:53 Dose: Not Given Fentanyl (Duragesic 25mcg Patch -) 1 patch TD Q72H [facility] Stop: 03/30/17 17:49 Last Admin: 03/26/17 17:51 Dose: 1 patch Piperacillin/Tazobactam/Dextrose (Zosyn 2.25gm Ivpb (Premix)) 50 mls @ 100 mls/ hr IVPB Q8H-IV [facility] PRN Reason: Protocol Last Admin: 03/26/17 17:52 Dose: 100 mls/hr Miscellaneous (Duragesic Patch Waste) 1 each MC PRN PRN PRN Reason: PAIN Last Admin: 03/26/17 17:52 Dose: 1 each Ranitidine HCl (Zantac Oral Solution -) 150 mg PO DAILY [facility] Last Admin: 03/26/17 09:01 Dose: 150 mg Rosuvastatin Calcium (Crestor -) 5 mg PO HS [facility] Last Admin: 03/25/17 21:52 Dose: 5 mg Sucralfate (Carafate Oral Suspension -) 0.5 gm PO BID [facility] Last Admin: 03/26/17 09:00 Dose: Not Given agitated, risking decannulation required physical restraints Last Vital Signs Temp Pulse Resp BP Pulse Ox 98.8 F 85 18 112/49 96 03/26/17 13:55 03/26/17 17:05 03/26/17 17:05 03/26/17 17:05 03/25/17 21:00 Lungs clear Heart RRR Abd soft Ext no edema Right AKA CBC, BMP 03/25/17 19:30 03/26/17 14:00 ESRD Gangrene pain management Plan- Maintenance HD
[2017-03-26] MEDS: DOCUSATE SODIUM 100 MG CAPSULE (FP) PO SCH (21:44)
[2017-03-26] MEDS: ALPRAZolam 0.25 MG TABLET PO SCH (21:44)
[2017-03-26] MEDS: diphenhydrAMINE HCL 25 MG CAPSULE (FP) PO PRN (21:45)
[2017-03-26] MEDS: ROSUVASTATIN CA 5 MG TABLET (FP) PO SCH (21:45)
[2017-03-27] MEDS ORDERED: PT OWN MED DRAWER 7, Y5N ONE ×3 (02:23→20:27)
[2017-03-27] MEDS: PIPERACILLIN/TAZOB 2.25 GM 50 ML IVPB SCH ×3 (02:28→18:13)
[2017-03-27 09:30] LABS: MCH 27.9 pg (25.7-33.7); MCHC 32.1 g/dl (32.0-35.9); MEAN CELL VOLUME 86.9 fl (80-96); MEAN PLT VOLUME 7.7 fl (7.5-11.1); PLATELET COUNT 70 K/MM3 (134-434); WHITE BLOOD COUNT 5.5 K/mm3 (4.0-10.0)
[2017-03-27] MEDS: CARVEDILOL 3.125 MG TABLET (FP) PO SCH ×2 (10:08→21:07)
[2017-03-27 10:12] LABS: INR 1.94 (0.82-1.09); PROTHROMBIN TIME (PATIENT) 21.9 SEC (9.98-11.88)
[2017-03-27 10:15] LABS: ACTIVATED PTT 45.8 SECONDS (26.9-34.4)
[2017-03-27 10:25] LABS: ALBUMIN 1.8 g/dl (3.4-5.0); ALK PHOS 66 U/L (45-117); ANION GAP 12 (8-16); BILIRUBIN,TOTAL 0.5 mg/dL (0.2-1.0); CALCIUM 7.9 mg/dL (8.5-10.1); CO2 29 mmol/L (21-32); CREATININE 5.2 mg/dL (0.7-1.3); GLUCOSE,RANDOM 76 mg/dL (74-106); SGOT/AST 17 U/L (15-37); SGPT/ALT < 6 U/L (12-78); TOT PROT 4.3 g/dl (6.4-8.2)
[2017-03-27] MEDS: BUDESONIDE/FORMETEROL FUMARATE 80/4.5 mcg INHALER IH SCH ×2 (10:34→21:07)
[2017-03-27] MEDS: SUCRALFATE 1 GM/10 ML UNIT DOSE CUPS PO SCH ×2 (10:34→21:07)
[2017-03-27] MEDS: ASPIRIN 81 MG CHEWABLE TABLETS PO SCH (10:34)
[2017-03-27] MEDS: RANITIDINE HCL 150 MG/10 ML UNIT-DOSE PO SCH (10:35)
--- NOTE | 2017-03-27 11:07 | PN ---
Progress Note (short form) - Note Progress Note: Chief Complaint: Events noted, notes reviewed, resting in bed no distress History of Present Illness: Seen and examined. Events noted, notes reviewed, resting in bed no distress Echocardiography reveals severely reduced LV systolic function, severe TR, moderate pulmonary HTN, mild AR, severely dilated LA and RA - Current Medication List Current Medications Alprazolam (Xanax -) 0.5 mg PO HS [facility] Last Admin: 03/26/17 21:44 Dose: 0.5 mg Aspirin (Asa -) 81 mg PO DAILY [facility] Last Admin: 03/27/17 10:34 Dose: 81 mg Budesonide/Formoterol Fumarate (Symbicort 80/4.5mcg -) 2 puff IH BID [facility] Last Admin: 03/27/17 10:34 Dose: 2 puff Carvedilol (Coreg -) 3.125 mg PO BID [facility] Last Admin: 03/27/17 10:08 Dose: Not Given Collagenase (Santyl -) 1 applic TP DAILY [facility] Last Admin: 03/26/17 10:34 Dose: 1 applic Diphenhydramine HCl (Benadryl -) 25 mg PO Q6H PRN PRN Reason: FOR ITCHING Last Admin: 03/26/17 21:45 Dose: 25 mg Docusate Sodium (Colace -) 300 mg PO HS [facility] Last Admin: 03/26/17 21:44 Dose: 300 mg Fentanyl (Duragesic 25mcg Patch -) 1 patch TD Q72H [facility] Stop: 03/30/17 17:49 Last Admin: 03/26/17 17:51 Dose: 1 patch Piperacillin/Tazobactam/Dextrose (Zosyn 2.25gm Ivpb (Premix)) 50 mls @ 100 mls/ hr IVPB Q8H-IV [facility] PRN Reason: Protocol Last Admin: 03/27/17 10:34 Dose: 100 mls/hr Miscellaneous (Duragesic Patch Waste) 1 each MC PRN PRN PRN Reason: PAIN Last Admin: 03/26/17 17:52 Dose: 1 each Ranitidine HCl (Zantac Oral Solution -) 150 mg PO DAILY [facility] Last Admin: 03/27/17 10:35 Dose: 150 mg Rosuvastatin Calcium (Crestor -) 5 mg PO HS [facility] Last Admin: 03/26/17 21:45 Dose: 5 mg Sucralfate (Carafate Oral Suspension -) 0.5 gm PO BID [facility] Last Admin: 03/27/17 10:34 Dose: 0.5 gm - Objective Vital Signs: Last Vital Signs Temp Pulse Resp BP Pulse Ox 97.6 F 89 20 107/50 96 03/27/17 10:00 03/27/17 10:14 03/27/17 10:00 03/27/17 10:14 03/25/17 21:00 Intake & Output 03/24/17 03/25/17 03/26/17 03/27/17 23:59 23:59 23:59 23:59 Intake Total 680 1600 450 Balance 680 1600 450 Weight 143 lb 4 oz 143 lb 6 oz 140 lb 3 oz 137 lb Constitutional: No Distress, Calm Neck: Supple Negative JVD Cardiovascular: S1 S2 Irregularly Irregular Grade 2/6 SM Respiratory: Diminished Gastrointestinal: Soft Benign Normal Bowel Sounds Ext: No Labs: CBC, BMP 03/27/17 08:45 03/27/17 08:45 INR, PTT INR 1.94 (0.82-1.09) H 03/27/17 08:45 Fibrinogen 394.0 mg/dL (238-498) 03/23/17 06:20 Assessment/Plan ASSESSMENT: 1. PAD post right AKA and left toe amputation, occluded left SFA post angioplasty/stent, planned for left BKA 2. CAD angina pectoris 3. Dilated cardiomyopathy with chronic class I-II NYHA classification LV systolic failure, compensated/ euvolemic 4. Persistent atrial fibrillation [id number] score of 4 off of A/C with elevated INR 5. Severe TR with pulmonary HTN 6. HTN 7. ESRD on HD 8. History of DVT 9. Anemia, dropping H/H 10. Thrombocytopenia PLAN: 1. Continue Coreg, hemodynamics permitting 2. Continue ASA with caution considering the above presentation, continue to hold Coumadin pending intervention 3. Continue Crestor 4. HD as per renal srervice 5. Evaluation of dropping H/H 6. As outlined patient is at intermediate clinical risk for intermediate risk procedure, but given current absence of symptoms of acute coronary syndrome and/ or de-compensated congestive heart failure and/or malignant arrhythmia, there are no absolute cardiovascular contraindications in proceeding with the planned BKA Balaji Hess M.D.
[2017-03-27 11:41] LABS: MCH 28.2 pg (25.7-33.7); MCHC 31.9 g/dl (32.0-35.9); MEAN CELL VOLUME 88.4 fl (80-96); MEAN PLT VOLUME 8.3 fl (7.5-11.1); PLATELET COUNT 83 K/MM3 (134-434); RDW 16.2 % (11.9-15.9); WHITE BLOOD COUNT 6.9 K/mm3 (4.0-10.0)
--- NOTE | 2017-03-27 11:48 | PN ---
Progress Note (short form) - Note Progress Note: Subjective: The patient was seen and examined at the bedside, he is complaining that he wants water Hgb this AM 6.7, repeat cbc 7.5. No signs of bleeding, stool for occult blood positive. Will give 1u PRBC and monitor CBC Current Medications Generic Name Dose Route Start Last Admin Trade Name Freq PRN Reason Stop Dose Admin Alprazolam 0.5 mg 03/20/17 22:00 03/25/17 21:52 Xanax - PO 0.5 mg HS [facility] Administration Aspirin 81 mg 03/18/17 10:00 03/26/17 09:00 Asa - PO 81 mg DAILY [facility] Administration Budesonide/Formoterol Fumarate 2 puff 03/17/17 22:00 03/26/17 09:11 Symbicort 80/4.5mcg - IH 2 puff BID [facility] Administration Carvedilol 3.125 mg 03/21/17 15:27 03/26/17 11:03 Coreg - PO Not Given BID [facility] Collagenase 1 applic 03/18/17 11:00 03/26/17 10:34 Santyl - TP 1 applic DAILY [facility] Administration Diphenhydramine HCl 25 mg 03/17/17 13:24 03/24/17 22:23 Benadryl - PO 25 mg Q6H PRN Administration FOR ITCHING Docusate Sodium 300 mg 03/22/17 22:00 03/25/17 21:53 Colace - PO Not Given HS [facility] Epoetin Nash 10,000 unit 03/26/17 06:00 Procrit - IVPUSH 03/26/17 06:01 ONCE ONE Fentanyl 1 patch 03/23/17 18:00 03/23/17 19:49 Duragesic 25mcg Patch - TD 03/30/17 17:49 1 patch Q72H [facility] Administration Piperacillin/Tazobactam/Dextrose 50 mls @ 100 mls/hr 03/17/17 15:15 03/26/17 09:08 Zosyn 2.25gm Ivpb (Premix) IVPB 100 mls/hr Q8H-IV [facility] Administration Protocol Vancomycin HCl 1,000 mg/ 250 mls @ 250 mls/hr 03/26/17 06:00 Dextrose IVPB 03/26/17 06:59 ONCE ONE Protocol Miscellaneous 1 each 03/23/17 17:49 Duragesic Patch Waste MC PRN PRN PAIN Ranitidine HCl 150 mg 03/18/17 10:00 03/26/17 09:01 Zantac Oral Solution - PO 150 mg DAILY [facility] Administration Rosuvastatin Calcium 5 mg 03/23/17 22:00 03/25/17 21:52 Crestor - PO 5 mg HS [facility] Administration Sucralfate 0.5 gm 03/17/17 22:00 03/26/17 09:00 Carafate Oral Suspension - PO Not Given BID [facility] Objective: Vital Signs Period Temp Pulse Resp BP Sys/Coleman Pulse Ox Last 24 Hr 97.6 F-98.9 F 68-106 18-20 88-130/38-106 Physical Exam: Patient refused exam Left foot with dressing, c/d/i CBCD WBC 6.9 K/mm3 (4.0-10.0) 03/27/17 10:20 RBC 2.65 M/mm3 (4.00-5.60) L 03/27/17 10:20 Hgb 7.5 GM/dL (11.7-16.9) L D 03/27/17 10:20 Hct 23.4 % (35.4-49) L 03/27/17 10:20 MCV 88.4 fl (80-96) 03/27/17 10:20 MCHC 31.9 g/dl (32.0-35.9) L 03/27/17 10:20 RDW 16.2 % (11.9-15.9) H 03/27/17 10:20 Plt Count 83 K/MM3 (134-434) L 03/27/17 10:20 MPV 8.3 fl (7.5-11.1) 03/27/17 10:20 CMP Sodium 147 mmol/L (136-145) H 03/27/17 08:45 Potassium 3.3 mmol/L (3.5-5.1) L 03/27/17 08:45 Chloride 106 mmol/L (98-107) 03/27/17 08:45 Carbon Dioxide 29 mmol/L (21-32) 03/27/17 08:45 Anion Gap 12 (8-16) 03/27/17 08:45 BUN 41 mg/dL (7-18) H D 03/27/17 08:45 Creatinine 5.2 mg/dL (0.7-1.3) H D 03/27/17 08:45 Creat Clearance w eGFR 10.84 (>60) 03/27/17 08:45 Random Glucose 76 mg/dL (74-106) D 03/27/17 08:45 Calcium 7.9 mg/dL (8.5-10.1) L 03/27/17 08:45 Total Bilirubin 0.5 mg/dL (0.2-1.0) 03/27/17 08:45 AST 17 U/L (15-37) 03/27/17 08:45 ALT < 6 U/L (12-78) L D 03/27/17 08:45 Alkaline Phosphatase 66 U/L (45-117) 03/27/17 08:45 Total Protein 4.3 g/dl (6.4-8.2) L 03/27/17 08:45 Albumin 1.8 g/dl (3.4-5.0) L 03/27/17 08:45 CARDIAC ENZYMES Creatine Kinase 17 IU/L (39-308) L 03/14/17 01:15 Troponin I 0.03 ng/ml (0.00-0.05) 03/14/17 01:15 Microbiology 03/21/17 15:30 Blood - Peripheral Venous Blood Culture - Final NO GROWTH AFTER 5 DAYS INCUBATION 03/21/17 15:30 Blood - Peripheral Venous Blood Culture - Final NO GROWTH AFTER 5 DAYS INCUBATION 03/14/17 01:20 Blood - Peripheral Venous Blood Culture - Final NO GROWTH AFTER 5 DAYS INCUBATION 03/14/17 01:15 Blood - Peripheral Venous Blood Culture - Final NO GROWTH AFTER 5 DAYS INCUBATION 03/14/17 13:30 Foot - Left Gram Stain - Final 03/14/17 13:30 Foot - Left Wound Culture - Final Serratia Marcescens Raoultella (K) Ornithinolytica Imagin03/14/2017: CT/Abdomen CTA AOR & RLE Runoff: Extensive severe diffuse aortoiliac , femoro-popliteal and intrapoplitea, occluded left SFA and mucus occlusion of flow in a severely diseased the renal artery demonstrates at lease 70-90% stenosis. Occluded left ENMANUEL and two vessel runoff provided by HYDROGRAPHIC SURVEYOR and PA however degree of disease and stenosis cannot be discerned due to calcification and hardening artifacts. enlarged prostate. Small right sided pleural effusion with severe right lung base atelectic changes vs pnemonic infiltrates. 03/14/2017: US/Duplex arterial legs, limited ultrasound: Extensive artheroscleoric disease with occlusion of the SFA. There is weak, monosphasic flow present within the popliteal and posterior tibial arteries. Assessment: This is a 77 year old male with PMHx of ESRD on HD (,,), HTN, DVT, right AKA 3 months ago, left 2nd digit amputation lower extremity, who presented to the ED for worsening left foot pain. Plan: 1) Left SFA occlusion, left foot gangrene, severe sepsis - Imaging as above - S/p aortogram with LLE angiogram 03/17 - S/p LLE angiogram, SFA DCB angioplasty, SFA Stent placement. Retrograde puncture from left popliteal artery - Will need BKA: cardiac clearance complete - Continue Zosyn - Vanco per level/ID - Pain management - Appreciate ID consult - Appreciate vascular surgery consult Hx of DVT - Off heparin gtt now, severe thrombocytopenia 2) Acute on Chronic anemia - H/H trending down, this AM 6.7, repeat 7.5 - Hx of infrarenal AAA. No acute abdomen at this time, abd is non-tender, non- distended. However, with significant drop in Hgb will need to r/o AAA dissection. Discussed with Dr. Lobo who is in agreement with CTA at this time. Will dialyze after - Discussed with Dr. Villa, will hold ASA for now given drop in Hgb and positive stool for occult blood - F/u GI consult - Will give 1u PRBC - Recheck Hgb after transfusion - Continue to monitor 3) Severe thrombocytopenia - HIT negative - Normal platelet transfusion threshold - Prolonged PTT: F/u mixing studies and follow PTT. Hold Heparin gtt at this time given prolonged PTT - Appreciate hematology consult 4) Acute metabolic encephalopathy - Improving - CT head with left occipital infarct - MRI brain with generalized volume loss, small vessel infarction in the periventricular white matter with an old infarct of the medial aspect of the left occipital lobe 5) ESRD - Continue HD as scheduled - Renal diet 6) A.fib, chronic - Off heparin gtt 2/2 severe thrombocytopenia 7) AAA - F/u outpatient 8) F/E/N: - Monitor electrolytes - Renal diet 9) Prophylaxis: - Hold all chemical dvt prophylaxis 2/2 severe thrombocytopenia 10) Dispo: - Requires continued inpatient care CODE STATUS: FULL CODE Visit type - Emergency Visit Emergency Visit: Yes ED Registration Date: 03/14/17 Care time: The patient presented to the Emergency Department on the above date and was hospitalized for further evaluation of their emergent condition. - New Patient This patient is new to me today: No - Critical Care Critical Care patient: No
[2017-03-27] MEDS: COLLAGENASE CLOSTRIDIUM HIST. 30 GRAMS TUBE TP SCH (12:34)
[2017-03-27 13:05] LABS: ANISOCYTOSIS 1+; HYPOCHROMIA FEW; POLYCHROMASIA 1+
--- NOTE | 2017-03-27 13:56 | PN ---
Progress Note (short form) - Note Progress Note: Progress Note (short form) - Note Progress Note: Patient is being wheeled for a CTA Vital Signs Period Temp Pulse Resp BP Sys/Coleman Pulse Ox Last 24 Hr 97.6 F-98.9 F 68-106 18-20 88-130/38-106 CBC, BMP 03/27/17 10:20 03/27/17 08:45 Active Medications Generic Name Dose Route Start Last Admin Trade Name Freq PRN Reason Stop Dose Admin Alprazolam 0.5 mg 03/20/17 22:00 03/26/17 21:44 Xanax - PO 0.5 mg HS [facility] Administration Aspirin 81 mg 03/18/17 10:00 03/27/17 10:34 Asa - PO 81 mg DAILY [facility] Administration Budesonide/Formoterol Fumarate 2 puff 03/17/17 22:00 03/27/17 10:34 Symbicort 80/4.5mcg - IH 2 puff BID [facility] Administration Carvedilol 3.125 mg 03/21/17 15:27 03/27/17 10:08 Coreg - PO Not Given BID [facility] Collagenase 1 applic 03/18/17 11:00 03/27/17 12:34 Santyl - TP 1 applic DAILY [facility] Administration Diphenhydramine HCl 25 mg 03/17/17 13:24 03/26/17 21:45 Benadryl - PO 25 mg Q6H PRN Administration FOR ITCHING Docusate Sodium 300 mg 03/22/17 22:00 03/26/17 21:44 Colace - PO 300 mg HS [facility] Administration Fentanyl 1 patch 03/23/17 18:00 03/26/17 17:51 Duragesic 25mcg Patch - TD 03/30/17 17:49 1 patch Q72H [facility] Administration Piperacillin/Tazobactam/Dextrose 50 mls @ 100 mls/hr 03/17/17 15:15 03/27/17 10:34 Zosyn 2.25gm Ivpb (Premix) IVPB 100 mls/hr Q8H-IV [facility] Administration Protocol Miscellaneous 1 each 03/23/17 17:49 03/26/17 17:52 Duragesic Patch Waste MC 1 each PRN PRN Administration PAIN Ranitidine HCl 150 mg 03/18/17 10:00 03/27/17 10:35 Zantac Oral Solution - PO 150 mg DAILY [facility] Administration Rosuvastatin Calcium 5 mg 03/23/17 22:00 03/26/17 21:45 Crestor - PO 5 mg HS [facility] Administration Sucralfate 0.5 gm 03/17/17 22:00 03/27/17 10:34 Carafate Oral Suspension - PO 0.5 gm BID [facility] Administration Impression: LE wound-- for amputation CKD Atrial Fib CHF Anemia Thrombocytopenia-- improved Plan: Will need amputation per vascular To consider possible evaluation for hypercoagulability, with prolonged PTT and risk of falls the benefits are not in favor of AC at this time 1 unit of PRBC has been ordered He is going for a CTA to locate source of bleeding but most likley it is a GI source with positive anthony It is a difficult decision to hold ASA considering he is a vasculopath and will defer to primary team can give 1 unit of FFP if he contiues to drop his Hb to correct the coagulopathy
[2017-03-27] MEDS: ROSUVASTATIN CA 5 MG TABLET (FP) PO SCH (21:06)
[2017-03-27] MEDS: diphenhydrAMINE HCL 25 MG CAPSULE (FP) PO PRN (21:07)
[2017-03-27] MEDS: ALPRAZolam 0.25 MG TABLET PO SCH (21:07)
[2017-03-27] MEDS: DOCUSATE SODIUM 100 MG CAPSULE (FP) PO SCH (21:07)
--- NOTE | 2017-03-27 21:09 | PN ---
Progress Note (short form) - Note Progress Note: seen while on dialysis ESRD on HD Gangrenous toes S/P SHARP DROP IN H/H S/P CT ANGIO R/O INTRAABD HEMORRHAGE 2/2 AAA BEING DIALYZED FOR S/P CONTRAST STUDY Current Medications Alprazolam (Xanax -) 0.5 mg PO HS [facility] Last Admin: 03/27/17 21:07 Dose: 0.5 mg Budesonide/Formoterol Fumarate (Symbicort 80/4.5mcg -) 2 puff IH BID [facility] Last Admin: 03/27/17 21:07 Dose: 2 puff Carvedilol (Coreg -) 3.125 mg PO BID [facility] Last Admin: 03/27/17 21:07 Dose: Not Given Collagenase (Santyl -) 1 applic TP DAILY [facility] Last Admin: 03/27/17 12:34 Dose: 1 applic Diphenhydramine HCl (Benadryl -) 25 mg PO Q6H PRN PRN Reason: FOR ITCHING Last Admin: 03/27/17 21:07 Dose: 25 mg Docusate Sodium (Colace -) 300 mg PO HS [facility] Last Admin: 03/27/17 21:07 Dose: Not Given Fentanyl (Duragesic 25mcg Patch -) 1 patch TD Q72H [facility] Stop: 03/30/17 17:49 Last Admin: 03/26/17 17:51 Dose: 1 patch Piperacillin/Tazobactam/Dextrose (Zosyn 2.25gm Ivpb (Premix)) 50 mls @ 100 mls/ hr IVPB Q8H-IV [facility] PRN Reason: Protocol Last Admin: 03/27/17 18:13 Dose: Not Given Miscellaneous (Duragesic Patch Waste) 1 each MC PRN PRN PRN Reason: PAIN Last Admin: 03/26/17 17:52 Dose: 1 each Ranitidine HCl (Zantac Oral Solution -) 150 mg PO DAILY [facility] Last Admin: 03/27/17 10:35 Dose: 150 mg Rosuvastatin Calcium (Crestor -) 5 mg PO HS [facility] Last Admin: 03/27/17 21:06 Dose: 5 mg Sucralfate (Carafate Oral Suspension -) 0.5 gm PO BID [facility] Last Admin: 03/27/17 21:07 Dose: 0.5 gm agitated, risking decannulation required physical restraints Last Vital Signs Temp Pulse Resp BP Pulse Ox 98.6 F 92 H 18 110/52 96 03/27/17 16:55 03/27/17 19:58 03/27/17 19:58 03/27/17 19:58 03/25/17 21:00 Lungs clear Heart RRR Abd soft Ext no edema Right AKA CBC, BMP 03/27/17 10:20 03/27/17 08:45 ESRD Gangrene pain management Plan- EXTRA hd TX TODAY
[2017-03-28] MEDS ORDERED: PT OWN MED DRAWER 7, Y5N ONE ×4 (01:16→22:21)
[2017-03-28] MEDS: PIPERACILLIN/TAZOB 2.25 GM 50 ML IVPB SCH ×3 (01:18→17:49)
[2017-03-28] MEDS ORDERED: ACETAMINOPHEN 325 MG TABLET (FP) PO ONE (04:08)
[2017-03-28 07:45] LABS: MCH 28.3 pg (25.7-33.7); MCHC 32.4 g/dl (32.0-35.9); MEAN CELL VOLUME 87.4 fl (80-96); MEAN PLT VOLUME 7.9 fl (7.5-11.1); PLATELET COUNT 94 K/MM3 (134-434); RDW 15.8 % (11.9-15.9); WHITE BLOOD COUNT 7.1 K/mm3 (4.0-10.0)
[2017-03-28 07:58] LABS: ANION GAP 10 (8-16); CALCIUM 7.8 mg/dL (8.5-10.1); CO2 30 mmol/L (21-32); GLUCOSE,RANDOM 72 mg/dL (74-106); PHOSPHOROUS 1.9 mg/dL (2.5-4.9); SGOT/AST 21 U/L (15-37)
[2017-03-28 08:00] LABS: ALK PHOS 72 U/L (45-117); BILIRUBIN,TOTAL 0.8 mg/dL (0.2-1.0); CREATININE 3.9 mg/dL (0.7-1.3); SGPT/ALT 8 U/L (12-78); TOT PROT 4.7 g/dl (6.4-8.2)
--- NOTE | 2017-03-28 08:55 | PN ---
Progress Note (short form) - Note Progress Note: VAscular Surgery CTA reviewed. AAA 4.6cm. no leak in aneurysm. Will do GI workup for anemia. Will be on stand by for left bka. Faizan Villa DO
[2017-03-28] MEDS: CARVEDILOL 3.125 MG TABLET (FP) PO SCH ×2 (10:49→22:29)
[2017-03-28] MEDS: SUCRALFATE 1 GM/10 ML UNIT DOSE CUPS PO SCH ×2 (10:53→22:28)
[2017-03-28] MEDS: RANITIDINE HCL 150 MG/10 ML UNIT-DOSE PO SCH (10:54)
[2017-03-28] MEDS: BUDESONIDE/FORMETEROL FUMARATE 80/4.5 mcg INHALER IH SCH ×2 (10:55→22:30)
[2017-03-28] MEDS: COLLAGENASE CLOSTRIDIUM HIST. 30 GRAMS TUBE TP SCH (10:56)
--- NOTE | 2017-03-28 12:44 | PN ---
Physical Exam: SUBJECTIVE: Patient seen and examined at the bedside, remains hypotensive @ 80/ 40. Denies dizziness, shortnesss of breath or any other discomfort. Restless. OBJECTIVE: BP remains low, will continue to monitor same Vital Signs Period Temp Pulse Resp BP Sys/Coleman Pulse Ox Last 24 Hr 97.2 F-98.6 F 78-96 18-22 79-126/33-65 GENERAL: Awake, alert, and fully oriented, paragu[place] speaking HEAD: Normal with no signs of trauma. EYES: Pupils equal, round and reactive to light, extraocular movements intact, sclera anicteric, conjunctiva clear. No lid lag. EARS, NOSE, THROAT: Ears normal, nares patent, oropharynx clear without exudates. Moist mucous membranes. NECK: Normal range of motion, supple without lymphadenopathy, JVD, or masses. LUNGS: Breath sounds diminished bilaterall, no wheezing, +fine crackles on right mid lobe, oxygen stable on room air HEART: irregular heart rate, hx of afib ABDOMEN: Soft, nontender, not distended, normoactive bowel sounds, no guarding, no rebound, no masses. No hepatomegaly or splenomegaly. UPPER EXTREMITIES: AV fistula RUE, thrill/bruit present. AV fistula LUE not working LOWER EXTREMITIES: + 3 left lower ext pitting peripheral edema. Right AKA, Left foot with gangrenous toes, gangrene spreading to anterior aspect of foot, disclored foot NEUROLOGICAL: Normal speech. PSYCHIATRIC: restless Laboratory Results - last 24 hr 03/27/17 03/27/17 03/27/17 08:45 17:15 17:15 WBC RBC Hgb Hct MCV MCH MCHC RDW Plt Count MPV Hypochromia Few Polychromasia 1+ Anisocytosis 1+ Fragmented RBCs Few Fibrinogen 329.0 Sodium Potassium Chloride Carbon Dioxide Anion Gap BUN Creatinine Creat Clearance w eGFR Random Glucose Calcium Phosphorus Magnesium Total Bilirubin AST ALT Alkaline Phosphatase Total Protein Albumin Blood Type O POSITIVE Antibody Screen Negative Crossmatch See Detail 03/28/17 03/28/17 06:20 06:20 WBC 7.1 RBC 2.98 L Hgb 8.4 L D Hct 26.1 L MCV 87.4 MCH 28.3 MCHC 32.4 RDW 15.8 Plt Count 94 L MPV 7.9 Hypochromia Polychromasia Anisocytosis Fragmented RBCs Fibrinogen Sodium 144 Potassium 3.2 L Chloride 104 Carbon Dioxide 30 Anion Gap 10 BUN 26 H D Creatinine 3.9 H D Creat Clearance w eGFR 15.11 Random Glucose 72 L Calcium 7.8 L Phosphorus 1.9 L D Magnesium 2.0 Total Bilirubin 0.8 D AST 21 D ALT 8 L D Alkaline Phosphatase 72 Total Protein 4.7 L Albumin 2.0 L Blood Type Antibody Screen Crossmatch Active Medications Generic Name Dose Route Start Last Admin Trade Name Freq PRN Reason Stop Dose Admin Budesonide/Formoterol Fumarate 2 puff 03/17/17 22:00 03/28/17 10:55 Symbicort 80/4.5mcg - IH 2 puff BID OTIS Administration Carvedilol 3.125 mg 03/21/17 15:27 03/28/17 10:49 Coreg - PO Not Given BID OTIS Collagenase 1 applic 03/18/17 11:00 03/28/17 10:56 Santyl - TP 1 applic DAILY OTIS Administration Diphenhydramine HCl 25 mg 03/17/17 13:24 03/27/17 21:07 Benadryl - PO 25 mg Q6H PRN Administration FOR ITCHING Docusate Sodium 300 mg 03/22/17 22:00 03/27/17 21:07 Colace - PO Not Given HS OTIS Fentanyl 1 patch 03/23/17 18:00 03/26/17 17:51 Duragesic 25mcg Patch - TD 03/30/17 17:49 1 patch Q72H OTIS Administration Piperacillin/Tazobactam/Dextrose 50 mls @ 100 mls/hr 03/17/17 15:15 03/28/17 10:57 Zosyn 2.25gm Ivpb (Premix) IVPB 100 mls/hr Q8H-IV OTIS Administration Protocol Miscellaneous 1 each 03/23/17 17:49 03/26/17 17:52 Duragesic Patch Waste MC 1 each PRN PRN Administration PAIN Ranitidine HCl 150 mg 03/18/17 10:00 03/28/17 10:54 Zantac Oral Solution - PO 150 mg DAILY OTIS Administration Rosuvastatin Calcium 5 mg 03/23/17 22:00 03/27/17 21:06 Crestor - PO 5 mg HS OTIS Administration Sucralfate 0.5 gm 03/17/17 22:00 03/28/17 10:53 Carafate Oral Suspension - PO 0.5 gm BID OTIS Administration ASSESSMENT/PLAN: Patient is a 77 year old male with a significant past medical history of ESRD HD (T,Th,), atrial fib, hypertension, DVT, right AKA, s/p left 2nd digit amputation lower extremity. He presented to the ED on 03/14/2017 for critical ischemia of left lower extremity. Patient is Ukrainian speaking only and family reports having increased swelling to his left lower extremity. Pt comes with right AKA and a left middle toe amputation that was performed 3 weeks ago in [facility], where pt has been living for the past several years. Patient has medical records from [facility] in his file. On admission there is an infection of the left foot with gangrene of 2nd toe and +3 edema of the entire lower leg, and a lateral small circular ulceration. Pt comes with documentation from [facility] reflecting that he had patent DP and PT vessels in September of this year. Previous arterial study of left extremity reveals permeable arterial flow throughout extending from femoral to posterior tibial pulse. Imagin03/14/2017: CT/Abdomen CTA AOR & RLE Runoff: Extensive severe diffuse aortoiliac , femoro-popliteal and intrapopliteal, occluded left SFA and mucus occlusion of flow in a severely diseased the renal artery demonstrates at lease 70-90% stenosis. Occluded left ENMANUEL and two vessel runoff provided by COMMUNITY DIRECTOR and PA however degree of disease and stenosis cannot be discerned due to calcification and hardening artifacts. enlarged prostate. Small right sided pleural effusion with severe right lung base atelectic changes vs pnemonic infiltrates. 03/14/2017: US/Duplex arterial legs, limited ultrasound: Extensive artheroscleoric disease with occlusion of the SFA. There is weak, monosphasic flow present within the popliteal and posterior tibial arteries. Abdominal CTA 03/27/2017 (1) infrarenal abdominal aortic aneurysm measuring 4.6cm, similar to CTA seen on imaging 03/14/17, no dissection seen. (2) Bilateral ectatic common iliac arteries measuring up to 1.9 cm withsevere calcific alherosclerosis. (3) severe high grade ostial stenosis of bilateral renal arteries with near complete occlusion. (4) significant calcific altherosclerosis at the ostia of the celiac trunk and SMA likely resulting in less than 50% stenosis (5) Calficication of the aortic valve, prominent left coronary cusp, (6) incompletely imaged bilateral pleural effusions (7) cirrhotic configuration of the liver and evidence of portal hypertension with spenomegaly. (8) apparent wall thickent of nearl the entire colon (9) marked enlargement of the prostate gland. Vascular/ID: Severe Sepsis secondary to ischemic Left foot, acute While in [place] pt had an amputation site between 2nd and 3rd space of left foot, the wound is yellow with slough He is s/p left lower extremity angiogram/angioplasty and stent placement on 03/16 On Vanco and Zosyn as per ID, renally dosed - Vanco with dialysis Now with coag state likely secondary to sepsis, heme following Left bka planned as per vascular, cardiology cleared pt for surgery Hematology: hyper coagulability, likely secondary to sepsis HIT negative, Heme following with prolonged PTT and risk of falls (had fallen during admission), will defer AC at this time Thrombocytopenia, likely secondary to sepsis, improving Platelets now 94, monitor Neuro: Acute Metabolic Encephalopathy likely secondary to septic left foot Brain MRI shows generalized volume loss, with multiple foci of small vessel infarction in the periventricular white matter with an 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 On crestor, ASA 81mg Renal: ESRD, HD (on TThS) via right upper arm fistula renal following Cardiology: Subratherapeutic INR for Atrial Fibrillation, chronic Coumadin on hold, heme studies pending + stool for occult blood Hypertension, chronic but now with hypotension, parameters added to BP meds Cardiology following Hematology: Anemia, likely chronic Continue to monitor, transfuse if hmg <8 F.E.N. Fluids: 1.2 liter fluid restriction, tolerating PO Electrolytes: monitor Nutrition: renal diet Prophylaxis: GI: deferred DVT: subtherapeutic INR, hold coumadin, fall risk Disposition: Requires inpatient hospitalization. Full code.
--- NOTE | 2017-03-28 13:11 | PN ---
Progress Note, Physician Chief Complaint: S/P SFA angioplasty and stent Now awaits left BKA History of Present Illness: Patient was seen and examined. Awake. Chart was reviewed Denies chest pain or SOB, but restless - Current Medication List Current Medications: Active Medications Budesonide/Formoterol Fumarate (Symbicort 80/4.5mcg -) 2 puff IH BID [facility] Last Admin: 03/28/17 10:55 Dose: 2 puff Carvedilol (Coreg -) 3.125 mg PO BID [facility] Last Admin: 03/28/17 10:49 Dose: Not Given Collagenase (Santyl -) 1 applic TP DAILY [facility] Last Admin: 03/28/17 10:56 Dose: 1 applic Diphenhydramine HCl (Benadryl -) 25 mg PO Q6H PRN PRN Reason: FOR ITCHING Last Admin: 03/27/17 21:07 Dose: 25 mg Docusate Sodium (Colace -) 300 mg PO HS [facility] Last Admin: 03/27/17 21:07 Dose: Not Given Fentanyl (Duragesic 25mcg Patch -) 1 patch TD Q72H [facility] Stop: 03/30/17 17:49 Last Admin: 03/26/17 17:51 Dose: 1 patch Piperacillin/Tazobactam/Dextrose (Zosyn 2.25gm Ivpb (Premix)) 50 mls @ 100 mls/ hr IVPB Q8H-IV OTIS PRN Reason: Protocol Last Admin: 03/28/17 10:57 Dose: 100 mls/hr Miscellaneous (Duragesic Patch Waste) 1 each MC PRN PRN PRN Reason: PAIN Last Admin: 03/26/17 17:52 Dose: 1 each Ranitidine HCl (Zantac Oral Solution -) 150 mg PO DAILY [facility] Last Admin: 03/28/17 10:54 Dose: 150 mg Rosuvastatin Calcium (Crestor -) 5 mg PO HS [facility] Last Admin: 03/27/17 21:06 Dose: 5 mg Sucralfate (Carafate Oral Suspension -) 0.5 gm PO BID [facility] Last Admin: 03/28/17 10:53 Dose: 0.5 gm - Objective Vital Signs: Vital Signs Temperature 97.4 F L 03/28/17 10:14 Pulse Rate 89 03/28/17 12:54 Respiratory Rate 18 03/28/17 12:54 Blood Pressure 102/53 03/28/17 12:54 O2 Sat by Pulse Oximetry (%) 96 03/25/17 21:00 Neck: Yes: Supple Cardiovascular: Yes: Pulse Irregular, Murmur (SM), S1, S2 Respiratory: Yes: Diminished Gastrointestinal: Yes: Normal Bowel Sounds, Soft. No: Tenderness Extremities: Yes: Amputation Edema: No Labs: CBC, BMP 03/28/17 06:20 03/28/17 06:20 INR, PTT INR 1.94 (0.82-1.09) H 03/27/17 08:45 Fibrinogen 329.0 mg/dL (238-498) 03/27/17 17:15 Problem List - Problems (1) Critical lower limb ischemia Code(s): I99.8 - OTHER DISORDER OF CIRCULATORY SYSTEM (2) HLD (hyperlipidemia) Code(s): E78.5 - HYPERLIPIDEMIA, UNSPECIFIED Qualifiers: Hyperlipidemia type: pure hypercholesterolemia Qualified Code(s): E78.00 - Pure hypercholesterolemia, unspecified (3) HTN (hypertension) Code(s): I10 - ESSENTIAL (PRIMARY) HYPERTENSION Qualifiers: Hypertension type: essential hypertension Qualified Code(s): I10 - Essential (primary) hypertension (4) ESRD (end stage renal disease) Code(s): N18.6 - END STAGE RENAL DISEASE (5) Anemia Code(s): D64.9 - ANEMIA, UNSPECIFIED (6) Atrial fibrillation Code(s): I48.91 - UNSPECIFIED ATRIAL FIBRILLATION Qualifiers: Atrial fibrillation type: persistent Qualified Code(s): I48.1 - Persistent atrial fibrillation (7) Amputated toe of left foot Code(s): Z89.422 - ACQUIRED ABSENCE OF OTHER LEFT TOE(S) (8) S/P AKA (above knee amputation) Code(s): Z89.619 - ACQUIRED ABSENCE OF UNSPECIFIED LEG ABOVE KNEE Qualifiers: Laterality: right Qualified Code(s): Z89.611 - Acquired absence of right leg above knee (9) Cardiomyopathy Code(s): I42.9 - CARDIOMYOPATHY, UNSPECIFIED Qualifiers: Cardiomyopathy type: unspecified Qualified Code(s): I42.9 - Cardiomyopathy , unspecified (10) Systolic dysfunction, left ventricle Code(s): I51.9 - HEART DISEASE, UNSPECIFIED Assessment/Plan 1. PAD S/P right AKA and left toe amputation, occluded left SFA and AAA (4.6 cm ) s/p angiography s/p angioplasty and SFA stent 2. Renal artery disease with ESRD on HD 3. HTN/HCVD 4. Persistent AF ([id number] score of 4) 5. History of DVT 6. Severe LV systolic dysfunction/cardiomyopathy 7. Severe tricuspid valve regurgitation with pulmonary hypertension 8. S/P mechanical fall 9. Thrombocytopenia PLAN: 1. Optimize medical therapy. No absolute contraindication regarding BKA, but at an increased risk based on underlying severe LV systolic dysfunction. Continue management as per Vascular surgery 2. Continue with HD 3. Monitor INR and Plt level. Warfarin held 4. Continue Carvedilol and up-titrate. 6. Continue statin therapy and check lipid panel 7. AAA also needs to be followed as outpatient Further plans are to follow. Ion Landrum MD
--- NOTE | 2017-03-28 15:20 | PN ---
Progress Note, Physician History of Present Illness: stable no new issues events noted thought process of gi bleed - Current Medication List Current Medications: Active Medications Budesonide/Formoterol Fumarate (Symbicort 80/4.5mcg -) 2 puff IH BID [facility] Last Admin: 03/28/17 10:55 Dose: 2 puff Carvedilol (Coreg -) 3.125 mg PO BID [facility] Last Admin: 03/28/17 10:49 Dose: Not Given Collagenase (Santyl -) 1 applic TP DAILY [facility] Last Admin: 03/28/17 10:56 Dose: 1 applic Diphenhydramine HCl (Benadryl -) 25 mg PO Q6H PRN PRN Reason: FOR ITCHING Last Admin: 03/27/17 21:07 Dose: 25 mg Docusate Sodium (Colace -) 300 mg PO HS [facility] Last Admin: 03/27/17 21:07 Dose: Not Given Fentanyl (Duragesic 25mcg Patch -) 1 patch TD Q72H [facility] Stop: 03/30/17 17:49 Last Admin: 03/26/17 17:51 Dose: 1 patch Piperacillin/Tazobactam/Dextrose (Zosyn 2.25gm Ivpb (Premix)) 50 mls @ 100 mls/ hr IVPB Q8H-IV OTIS PRN Reason: Protocol Last Admin: 03/28/17 10:57 Dose: 100 mls/hr Miscellaneous (Duragesic Patch Waste) 1 each MC PRN PRN PRN Reason: PAIN Last Admin: 03/26/17 17:52 Dose: 1 each Ranitidine HCl (Zantac Oral Solution -) 150 mg PO DAILY [facility] Last Admin: 03/28/17 10:54 Dose: 150 mg Rosuvastatin Calcium (Crestor -) 5 mg PO HS [facility] Last Admin: 03/27/17 21:06 Dose: 5 mg Sucralfate (Carafate Oral Suspension -) 0.5 gm PO BID [facility] Last Admin: 03/28/17 10:53 Dose: 0.5 gm - Objective Vital Signs: Vital Signs Temperature 98.0 F 03/28/17 14:00 Pulse Rate 92 H 03/28/17 14:00 Respiratory Rate 20 03/28/17 14:00 Blood Pressure 109/51 03/28/17 14:00 O2 Sat by Pulse Oximetry (%) 96 03/25/17 21:00 Constitutional: Yes: No Distress, Calm Cardiovascular: Yes: Regular Rate and Rhythm Respiratory: Yes: Regular, CTA Bilaterally Gastrointestinal: Yes: Normal Bowel Sounds, Soft Musculoskeletal: Yes: Other Extremities: Yes: Other Integumentary: Yes: Erythema, Other (gangrene of the foot) Neurological: Yes: Alert Psychiatric: Yes: Alert Labs: CBC, BMP 03/28/17 06:20 03/28/17 06:20 INR, PTT INR 1.94 (0.82-1.09) H 03/27/17 08:45 Fibrinogen 329.0 mg/dL (238-498) 03/27/17 17:15 - ....Imaging Cat Scan: Report Reviewed, Image Reviewed Assessment/Plan Problem List - Problems (1) Anemia Code(s): D64.9 - ANEMIA, UNSPECIFIED (2) Critical lower limb ischemia Code(s): I99.8 - OTHER DISORDER OF CIRCULATORY SYSTEM (3) ESRD (end stage renal disease) Code(s): N18.6 - END STAGE RENAL DISEASE (4) HTN (hypertension) Code(s): I10 - ESSENTIAL (PRIMARY) HYPERTENSION (5) Open wnd foot-complicated Code(s): S91.309A - UNSPECIFIED OPEN WOUND, UNSPECIFIED FOOT, INITIAL ENCOUNTER cardiomyopathy plan ct abx awaiting for surgery awaiting for cameron tomorrow rest as per primary team
--- NOTE | 2017-03-28 17:08 | CON.GI ---
Consult Consult Specialty:: GI Referred by:: service - History of Present Illness History of Present Illness: Chart reviewed, events noted. A 77 yom with extensive, chronic medical issues admitted with left lower extremity infection/gangrene/sepsis. Found to have evidence of liver cirrhosis, edematous colon and severe vascular disease on CTA. The patient was noted to have decrease in HGb 1 day ago without overt, external signs of bleeding. One of the stool samples was hemoccult positive. PT and INR elevated, Coumadin stopped 1 day ago. There is no gross melena, hematochezia, hematemesis. The patient receives HD TIW and his next session is tomorrow. - History Source History Provided By: Medical Record, Caregiver (nurse) Limitations to Obtaining History: Clinical Condition - Past Medical History Cardio/Vascular: Yes: Deep Vein Thrombosis, HTN, Other (PVD) Renal/: Yes: Renal Failure, Hemodialysis - Past Surgical History Past Surgical History: Yes: Amputation - Alcohol/Substance Use Hx Alcohol Use: No - Smoking History Smoking history: Former smoker Have you smoked in the past 12 months: No Home Medications - Allergies Allergies/Adverse Reactions: Allergies Allergy/AdvReac Type Severity Reaction Status Date / Time No Known Allergies Allergy Verified 03/14/17 01:05 - Home Medications Home Medications: Ambulatory Orders Alprazolam [Xanax] 0.25 mg PO HS 03/14/17 Cilostazol [Pletal -] 100 mg PO BID 03/14/17 Esomeprazole Magnesium 40 mg PO DAILY 03/14/17 Fluticasone/Salmeterol [Advair 250-50 Diskus] 1 each IH BID 03/14/17 Glucosamine Sulfate Dipot Chlr [Glucosamine Sulfate] 1,000 mg PO DAILY 03/14/17 Meloxicam [Mobic] 15 mg PO DAILY 03/14/17 Rosuvastatin Calcium [Crestor] 20 mg PO DAILY 03/14/17 Sucralfate [Carafate] 5 ml PO BID 03/14/17 Tramadol HCl [Ultram] 50 mg PO Q4H PRN 03/14/17 Family Disease History - Family Disease History Family History: Unremarkable Review of Systems Findings/Remarks: please refer to H&P, clinical records up to this point Physical Exam-GI Vital Signs: Vital Signs Temperature 98.0 F 03/28/17 14:00 Pulse Rate 92 H 03/28/17 14:00 Respiratory Rate 20 03/28/17 14:00 Blood Pressure 109/51 03/28/17 14:00 O2 Sat by Pulse Oximetry (%) 96 03/25/17 21:00 Constitutional: Yes: Calm Eyes: Yes: Conjunctiva Clear Respiratory: Yes: Regular ...Palpate: Yes: Soft. No: Mass, Tenderness, Tenderness, Rebound ...Percussion: No: Fluid Wave Neurological: Yes: Alert, Lethargy Psychiatric: Yes: Alert Labs: CBC, BMP 03/28/17 06:20 03/28/17 06:20 INR, PTT INR 1.94 (0.82-1.09) H 03/27/17 08:45 Fibrinogen 329.0 mg/dL (238-498) 03/27/17 17:15 CBCD WBC 7.1 K/mm3 (4.0-10.0) 03/28/17 06:20 RBC 2.98 M/mm3 (4.00-5.60) L 03/28/17 06:20 Hgb 8.4 GM/dL (11.7-16.9) L D 03/28/17 06:20 Hct 26.1 % (35.4-49) L 03/28/17 06:20 MCV 87.4 fl (80-96) 03/28/17 06:20 MCHC 32.4 g/dl (32.0-35.9) 03/28/17 06:20 RDW 15.8 % (11.9-15.9) 03/28/17 06:20 Plt Count 94 K/MM3 (134-434) L 03/28/17 06:20 MPV 7.9 fl (7.5-11.1) 03/28/17 06:20 CMP Sodium 144 mmol/L (136-145) 03/28/17 06:20 Potassium 3.2 mmol/L (3.5-5.1) L 03/28/17 06:20 Chloride 104 mmol/L (98-107) 03/28/17 06:20 Carbon Dioxide 30 mmol/L (21-32) 03/28/17 06:20 Anion Gap 10 (8-16) 03/28/17 06:20 BUN 26 mg/dL (7-18) H D 03/28/17 06:20 Creatinine 3.9 mg/dL (0.7-1.3) H D 03/28/17 06:20 Creat Clearance w eGFR 15.11 (>60) 03/28/17 06:20 Calcium 7.8 mg/dL (8.5-10.1) L 03/28/17 06:20 Total Bilirubin 0.8 mg/dL (0.2-1.0) D 03/28/17 06:20 AST 21 U/L (15-37) D 03/28/17 06:20 ALT 8 U/L (12-78) L D 03/28/17 06:20 Alkaline Phosphatase 72 U/L (45-117) 03/28/17 06:20 Total Protein 4.7 g/dl (6.4-8.2) L 03/28/17 06:20 Albumin 2.0 g/dl (3.4-5.0) L 03/28/17 06:20 Imaging - Results Cat Scan: Report Reviewed (CTA: serve vascular disease, ?cirrhosis, PHG, colonoc edema) Problem List - Problems (1) Hypercoagulable state Code(s): D68.59 - OTHER PRIMARY THROMBOPHILIA (2) Liver cirrhosis Code(s): K74.60 - UNSPECIFIED CIRRHOSIS OF LIVER (3) Liver, cirrhosis, portal Code(s): K74.69 - OTHER CIRRHOSIS OF LIVER (4) Liver disease, chronic, with cirrhosis Code(s): K74.60 - UNSPECIFIED CIRRHOSIS OF LIVER; K76.9 - LIVER DISEASE, UNSPECIFIED (5) Gastric varices Code(s): I86.4 - GASTRIC VARICES (6) Abnormal CT of the abdomen Code(s): R93.5 - ABN FINDINGS ON DX IMAGING OF ABD REGIONS, INC RETROPERITON (7) Anticoagulant long-term use Code(s): Z79.01 - PROCESS DESIGNER (CURRENT) USE OF ANTICOAGULANTS (8) Cardiomyopathy Code(s): I42.9 - CARDIOMYOPATHY, UNSPECIFIED Qualifiers: Cardiomyopathy type: unspecified Qualified Code(s): I42.9 - Cardiomyopathy , unspecified (9) Critical lower limb ischemia Code(s): I99.8 - OTHER DISORDER OF CIRCULATORY SYSTEM (10) ESRD (end stage renal disease) Code(s): N18.6 - END STAGE RENAL DISEASE (11) Peripheral arterial disease Code(s): I73.9 - PERIPHERAL VASCULAR DISEASE, UNSPECIFIED (12) Systolic dysfunction, left ventricle Code(s): I51.9 - HEART DISEASE, UNSPECIFIED (13) Thrombocytopenia Code(s): D69.6 - THROMBOCYTOPENIA, UNSPECIFIED Assessment/Plan Extremely debilitated patient with active medical issues including multifactorial anemia, ESRD on HD, gangrene and sepsis. Antocoagulated until 1 day ago. There is no overt, ongoing GI blood loss reported thus far. Given the GI/hepatic findings, an EGD and colonoscopy are indicated, however, unless actively bleeding, I would postpone any invasive procedures for the time being. Agree with keeping Hgb above 7-8 g/dl Stop anticoagulation if possible PPI PO BID fro now Close monitoring for signs of active GI bleeding Will follow
--- NOTE | 2017-03-28 18:22 | PN ---
Progress Note (short form) - Note Progress Note: Renal follow up for ESRD on HD Pt seen and examined at the bedside awake and alert no acute complaints denies any sob, fever, pain, N/V/D s/p dialysis yesterday s/p contrast exposure Vital Signs Temperature 98.0 F 03/28/17 14:00 Pulse Rate 92 H 03/28/17 14:00 Respiratory Rate 20 03/28/17 14:00 Blood Pressure 109/51 03/28/17 14:00 O2 Sat by Pulse Oximetry (%) 96 03/25/17 21:00 Intake & Output 03/25/17 03/26/17 03/27/17 03/28/17 23:59 23:59 23:59 23:59 Intake Total 1600 450 50 337 Output Total 0 Balance 1600 450 50 337 Weight 143 lb 6 oz 140 lb 3 oz 137 lb 135 lb 1.6 oz distress from pain RRR CTA soft NT/ND Sacral dressing in place No LE kumar foot in dressing CBC, BMP 03/28/17 06:20 03/28/17 06:20 Current Medications Budesonide/Formoterol Fumarate (Symbicort 80/4.5mcg -) 2 puff IH BID [facility] Last Admin: 03/28/17 10:55 Dose: 2 puff Carvedilol (Coreg -) 3.125 mg PO BID [facility] Last Admin: 03/28/17 10:49 Dose: Not Given Collagenase (Santyl -) 1 applic TP DAILY [facility] Last Admin: 03/28/17 10:56 Dose: 1 applic Diphenhydramine HCl (Benadryl -) 25 mg PO Q6H PRN PRN Reason: FOR ITCHING Last Admin: 03/27/17 21:07 Dose: 25 mg Docusate Sodium (Colace -) 300 mg PO HS [facility] Last Admin: 03/27/17 21:07 Dose: Not Given Fentanyl (Duragesic 25mcg Patch -) 1 patch TD Q72H [facility] Stop: 03/30/17 17:49 Last Admin: 03/26/17 17:51 Dose: 1 patch Piperacillin/Tazobactam/Dextrose (Zosyn 2.25gm Ivpb (Premix)) 50 mls @ 100 mls/ hr IVPB Q8H-IV [facility] PRN Reason: Protocol Last Admin: 03/28/17 17:49 Dose: 100 mls/hr Miscellaneous (Duragesic Patch Waste) 1 each MC PRN PRN PRN Reason: PAIN Last Admin: 03/26/17 17:52 Dose: 1 each Ranitidine HCl (Zantac Oral Solution -) 150 mg PO DAILY [facility] Last Admin: 03/28/17 10:54 Dose: 150 mg Rosuvastatin Calcium (Crestor -) 5 mg PO HS [facility] Last Admin: 03/27/17 21:06 Dose: 5 mg Sucralfate (Carafate Oral Suspension -) 0.5 gm PO BID [facility] Last Admin: 03/28/17 10:53 Dose: 0.5 gm 77 year old gentleman with PMhx of ESRD on HD (TTS), Hypertension, DVT, PVD s/p right AKA and left toe amputation who presented to the ED with complaints of pain in his left foot and admitted fro soft tissue infection of the foot with concern for worsening ischemic disease. #ESRD on HD s/p dialysis yesterday no acute indication for dialysis today next HD is planned for tomorrow #Wound/Ischemia of left LE s/p angioplasty and stenting continue Abx as per ID, VAnco to be redosed after HD #Acute on Chronic Anemia likely due to infection but need to r/o blood loss s/p transfusion wth good response will continue IVANIA with HD GI work up #Sacral stage 1 decubitis continue supportive care fentayl patch Thank you Raghu Boogie DO Problem List - Problems (1) Critical lower limb ischemia Code(s): I99.8 - OTHER DISORDER OF CIRCULATORY SYSTEM (2) Open wnd foot-complicated Code(s): S91.309A - UNSPECIFIED OPEN WOUND, UNSPECIFIED FOOT, INITIAL ENCOUNTER (3) HTN (hypertension) Code(s): I10 - ESSENTIAL (PRIMARY) HYPERTENSION Qualifiers: Hypertension type: essential hypertension Qualified Code(s): I10 - Essential (primary) hypertension (4) ESRD (end stage renal disease) Code(s): N18.6 - END STAGE RENAL DISEASE (5) Anemia Code(s): D64.9 - ANEMIA, UNSPECIFIED
[2017-03-28] MEDS: ROSUVASTATIN CA 5 MG TABLET (FP) PO SCH (22:29)
[2017-03-28] MEDS: diphenhydrAMINE HCL 25 MG CAPSULE (FP) PO PRN (22:29)
[2017-03-28] MEDS: DOCUSATE SODIUM 100 MG CAPSULE (FP) PO SCH (22:29)
[2017-03-29] MEDS ORDERED: PT OWN MED DRAWER 7, Y5N ONE ×5 (02:18→21:43)
[2017-03-29] MEDS: PIPERACILLIN/TAZOB 2.25 GM 50 ML IVPB SCH ×3 (02:41→17:44)
[2017-03-29] MEDS ORDERED: EPOETIN ALFA 2,000 UNITS/1 ML VIAL IVPUSH ONE (06:00)
[2017-03-29] MEDS: CARVEDILOL 3.125 MG TABLET (FP) PO SCH ×2 (09:58→21:30)
[2017-03-29] MEDS: SUCRALFATE 1 GM/10 ML UNIT DOSE CUPS PO SCH ×2 (10:06→21:29)
[2017-03-29] MEDS: BUDESONIDE/FORMETEROL FUMARATE 80/4.5 mcg INHALER IH SCH ×2 (10:06→21:32)
[2017-03-29] MEDS: RANITIDINE HCL 150 MG/10 ML UNIT-DOSE PO SCH (10:07)
[2017-03-29] MEDS: COLLAGENASE CLOSTRIDIUM HIST. 30 GRAMS TUBE TP SCH (10:07)
--- NOTE | 2017-03-29 11:06 | PN ---
Progress Note, Physician History of Present Illness: Chart reviewed, events noted. No gross melena, hematochezia, hematemesis. Awake and alert. Wants to get out. HD today - Current Medication List Current Medications: Active Medications Budesonide/Formoterol Fumarate (Symbicort 80/4.5mcg -) 2 puff IH BID [facility] Last Admin: 03/29/17 10:06 Dose: 2 puff Carvedilol (Coreg -) 3.125 mg PO BID [facility] Last Admin: 03/29/17 09:58 Dose: Not Given Collagenase (Santyl -) 1 applic TP DAILY [facility] Last Admin: 03/29/17 10:07 Dose: 1 applic Diphenhydramine HCl (Benadryl -) 25 mg PO Q6H PRN PRN Reason: FOR ITCHING Last Admin: 03/28/17 22:29 Dose: 25 mg Docusate Sodium (Colace -) 300 mg PO HS [facility] Last Admin: 03/28/17 22:29 Dose: 300 mg Epoetin Nash (Epogen -) 20,000 units IVPUSH ONCE ONE Stop: 03/29/17 06:01 Fentanyl (Duragesic 25mcg Patch -) 1 patch TD Q72H [facility] Stop: 03/30/17 17:49 Last Admin: 03/26/17 17:51 Dose: 1 patch Piperacillin/Tazobactam/Dextrose (Zosyn 2.25gm Ivpb (Premix)) 50 mls @ 100 mls/ hr IVPB Q8H-IV [facility] PRN Reason: Protocol Last Admin: 03/29/17 10:04 Dose: 100 mls/hr Vancomycin HCl 1,000 mg/ (Dextrose) 250 mls @ 250 mls/hr IVPB ONCE ONE PRN Reason: Protocol Stop: 03/29/17 06:59 Miscellaneous (Duragesic Patch Waste) 1 each MC PRN PRN PRN Reason: PAIN Last Admin: 03/26/17 17:52 Dose: 1 each Ranitidine HCl (Zantac Oral Solution -) 150 mg PO DAILY [facility] Last Admin: 03/29/17 10:07 Dose: Not Given Rosuvastatin Calcium (Crestor -) 5 mg PO HS [facility] Last Admin: 03/28/17 22:29 Dose: 5 mg Sucralfate (Carafate Oral Suspension -) 0.5 gm PO BID [facility] Last Admin: 03/29/17 10:06 Dose: Not Given - Objective Vital Signs: Vital Signs Temperature 97.6 F 03/29/17 10:00 Pulse Rate 76 03/29/17 10:00 Respiratory Rate 20 03/29/17 10:00 Blood Pressure 105/57 03/29/17 10:00 O2 Sat by Pulse Oximetry (%) 96 03/25/17 21:00 Constitutional: Yes: No Distress, Calm Gastrointestinal: Yes: Soft. No: Tenderness Neurological: Yes: Alert Psychiatric: Yes: Alert Labs: CBC, BMP 03/28/17 06:20 03/28/17 06:20 INR, PTT INR 1.94 (0.82-1.09) H 03/27/17 08:45 Fibrinogen 329.0 mg/dL (238-498) 03/27/17 17:15 CBCD WBC 7.1 K/mm3 (4.0-10.0) 03/28/17 06:20 RBC 2.98 M/mm3 (4.00-5.60) L 03/28/17 06:20 Hgb 8.4 GM/dL (11.7-16.9) L D 03/28/17 06:20 Hct 26.1 % (35.4-49) L 03/28/17 06:20 MCV 87.4 fl (80-96) 03/28/17 06:20 MCHC 32.4 g/dl (32.0-35.9) 03/28/17 06:20 RDW 15.8 % (11.9-15.9) 03/28/17 06:20 Plt Count 94 K/MM3 (134-434) L 03/28/17 06:20 MPV 7.9 fl (7.5-11.1) 03/28/17 06:20 CMP Sodium 144 mmol/L (136-145) 03/28/17 06:20 Potassium 3.2 mmol/L (3.5-5.1) L 03/28/17 06:20 Chloride 104 mmol/L (98-107) 03/28/17 06:20 Carbon Dioxide 30 mmol/L (21-32) 03/28/17 06:20 Anion Gap 10 (8-16) 03/28/17 06:20 BUN 26 mg/dL (7-18) H D 03/28/17 06:20 Creatinine 3.9 mg/dL (0.7-1.3) H D 03/28/17 06:20 Creat Clearance w eGFR 15.11 (>60) 03/28/17 06:20 Calcium 7.8 mg/dL (8.5-10.1) L 03/28/17 06:20 Total Bilirubin 0.8 mg/dL (0.2-1.0) D 03/28/17 06:20 AST 21 U/L (15-37) D 03/28/17 06:20 ALT 8 U/L (12-78) L D 03/28/17 06:20 Alkaline Phosphatase 72 U/L (45-117) 03/28/17 06:20 Total Protein 4.7 g/dl (6.4-8.2) L 03/28/17 06:20 Albumin 2.0 g/dl (3.4-5.0) L 03/28/17 06:20 Problem List - Problems (1) Hypercoagulable state Code(s): D68.59 - OTHER PRIMARY THROMBOPHILIA (2) Liver cirrhosis Code(s): K74.60 - UNSPECIFIED CIRRHOSIS OF LIVER (3) Liver, cirrhosis, portal Code(s): K74.69 - OTHER CIRRHOSIS OF LIVER (4) Liver disease, chronic, with cirrhosis Code(s): K74.60 - UNSPECIFIED CIRRHOSIS OF LIVER; K76.9 - LIVER DISEASE, UNSPECIFIED (5) Gastric varices Code(s): I86.4 - GASTRIC VARICES (6) Abnormal CT of the abdomen Code(s): R93.5 - ABN FINDINGS ON DX IMAGING OF ABD REGIONS, INC RETROPERITON (7) Anticoagulant long-term use Code(s): Z79.01 - CORRECTION (CURRENT) USE OF ANTICOAGULANTS (8) Cardiomyopathy Code(s): I42.9 - CARDIOMYOPATHY, UNSPECIFIED Qualifiers: Cardiomyopathy type: unspecified Qualified Code(s): I42.9 - Cardiomyopathy , unspecified (9) Critical lower limb ischemia Code(s): I99.8 - OTHER DISORDER OF CIRCULATORY SYSTEM (10) ESRD (end stage renal disease) Code(s): N18.6 - END STAGE RENAL DISEASE (11) Peripheral arterial disease Code(s): I73.9 - PERIPHERAL VASCULAR DISEASE, UNSPECIFIED (12) Systolic dysfunction, left ventricle Code(s): I51.9 - HEART DISEASE, UNSPECIFIED (13) Thrombocytopenia Code(s): D69.6 - THROMBOCYTOPENIA, UNSPECIFIED Assessment/Plan No events overnight, no gross bleeding. Continue to monitor
--- NOTE | 2017-03-29 13:16 | PN ---
Physical Exam: SUBJECTIVE: Patient seen and examined sitting in the hallway, with primary RN in attendance. Appears comfortable at rest, slightly restless. OBJECTIVE: For dialysis today Vital Signs Period Temp Pulse Resp BP Sys/Coleman Pulse Ox Last 24 Hr 97.4 F-98.0 F 76-92 20-20 97-109/49-57 GENERAL: Awake, alert, and fully oriented, khmer speaking HEAD: Normal with no signs of trauma. EYES: Pupils equal, round and reactive to light, extraocular movements intact, sclera anicteric, conjunctiva clear. No lid lag. EARS, NOSE, THROAT: Ears normal, nares patent, oropharynx clear without exudates. Moist mucous membranes. NECK: Normal range of motion, supple without lymphadenopathy, JVD, or masses. LUNGS: Breath sounds diminished bilaterall, no wheezing, +fine crackles on right mid lobe, oxygen stable on room air HEART: irregular heart rate, hx of afib ABDOMEN: Soft, nontender, not distended, normoactive bowel sounds, no guarding, no rebound, no masses. No hepatomegaly or splenomegaly. UPPER EXTREMITIES: AV fistula RUE, thrill/bruit present. AV fistula LUE not working LOWER EXTREMITIES: + 3 left lower ext pitting peripheral edema. Right AKA, Left foot with gangrenous toes, gangrene spreading to anterior aspect of foot, discolored foot NEUROLOGICAL: Normal speech. PSYCHIATRIC: restless SKIN: Sacral stage II, present on admission Active Medications Generic Name Dose Route Start Last Admin Trade Name Freq PRN Reason Stop Dose Admin Budesonide/Formoterol Fumarate 2 puff 03/17/17 22:00 03/29/17 10:06 Symbicort 80/4.5mcg - IH 2 puff BID [facility] Administration Carvedilol 3.125 mg 03/21/17 15:27 03/29/17 09:58 Coreg - PO Not Given BID [facility] Collagenase 1 applic 03/18/17 11:00 03/29/17 10:07 Santyl - TP 1 applic DAILY [facility] Administration Diphenhydramine HCl 25 mg 03/17/17 13:24 03/28/17 22:29 Benadryl - PO 25 mg Q6H PRN Administration FOR ITCHING Docusate Sodium 300 mg 03/22/17 22:00 03/28/17 22:29 Colace - PO 300 mg HS [facility] Administration Epoetin Nash 20,000 units 03/29/17 06:00 Epogen - IVPUSH 03/29/17 06:01 ONCE ONE Fentanyl 1 patch 03/23/17 18:00 03/26/17 17:51 Duragesic 25mcg Patch - TD 03/30/17 17:49 1 patch Q72H [facility] Administration Piperacillin/Tazobactam/Dextrose 50 mls @ 100 mls/hr 03/17/17 15:15 03/29/17 10:04 Zosyn 2.25gm Ivpb (Premix) IVPB 100 mls/hr Q8H-IV [facility] Administration Protocol Vancomycin HCl 1,000 mg/ 250 mls @ 250 mls/hr 03/29/17 06:00 Dextrose IVPB 03/29/17 06:59 ONCE ONE Protocol Miscellaneous 1 each 03/23/17 17:49 03/26/17 17:52 Duragesic Patch Waste MC 1 each PRN PRN Administration PAIN Ranitidine HCl 150 mg 03/18/17 10:00 03/29/17 10:07 Zantac Oral Solution - PO Not Given DAILY [facility] Rosuvastatin Calcium 5 mg 03/23/17 22:00 03/28/17 22:29 Crestor - PO 5 mg HS [facility] Administration Sucralfate 0.5 gm 03/17/17 22:00 03/29/17 10:06 Carafate Oral Suspension - PO Not Given BID [facility] ASSESSMENT/PLAN: Patient is a 77 year old male with a significant past medical history of ESRD HD (T,Th,Sa), atrial fib, hypertension, DVT, right AKA, s/p left 2nd digit amputation lower extremity. He presented to the ED on 03/14/2017 for critical ischemia of left lower extremity. Patient is Irish speaking only and family reports having increased swelling to his left lower extremity. Pt comes with right AKA and a left middle toe amputation that was performed 3 weeks ago in [facility], where pt has been living for the past several years. Patient has medical records from [facility] in his file. On admission there is an infection of the left foot with gangrene of 2nd toe and +3 edema of the entire lower leg, and a lateral small circular ulceration. Pt comes with documentation from [facility] reflecting that he had patent DP and PT vessels in September of this year. Previous arterial study of left extremity reveals permeable arterial flow throughout extending from femoral to posterior tibial pulse. Imagin03/14/2017: CT/Abdomen CTA AOR & RLE Runoff: Extensive severe diffuse aortoiliac , femoro-popliteal and intrapopliteal, occluded left SFA and mucus occlusion of flow in a severely diseased the renal artery demonstrates at lease 70-90% stenosis. Occluded left ENMANUEL and two vessel runoff provided by BANQUET STEWARD and PA however degree of disease and stenosis cannot be discerned due to calcification and hardening artifacts. enlarged prostate. Small right sided pleural effusion with severe right lung base atelectic changes vs pnemonic infiltrates. 03/14/2017: US/Duplex arterial legs, limited ultrasound: Extensive artheroscleoric disease with occlusion of the SFA. There is weak, monosphasic flow present within the popliteal and posterior tibial arteries. Abdominal CTA 03/27/2017 (1) infrarenal abdominal aortic aneurysm measuring 4.6cm, similar to CTA seen on imaging 03/14/17, no dissection seen. (2) Bilateral ectatic common iliac arteries measuring up to 1.9 cm with severe calcific alherosclerosis. (3) severe high grade ostial stenosis of bilateral renal arteries with near complete occlusion. (4) significant calcific altherosclerosis at the ostia of the celiac trunk and SMA likely resulting in less than 50% stenosis (5) Calcification of the aortic valve, prominent left coronary cusp, (6) incompletely imaged bilateral pleural effusions (7) cirrhotic configuration of the liver and evidence of portal hypertension with spenomegaly. (8) apparent wall thickent of nearl the entire colon (9) marked enlargement of the prostate gland. Vascular/ID: Sepsis secondary to ischemic Left foot, acute While in [place] pt had an amputation site between 2nd and 3rd space of left foot, the wound is yellow with slough He is s/p left lower extremity angiogram/angioplasty and stent placement on 03/16 On Vanco and Zosyn as per ID, renally dosed - Vanco with dialysis Now with hypercoag state likely secondary to sepsis, heme following Left bka planned as per vascular, cardiology cleared pt for surgery Hematology: Hypercoag. 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 On crestor, ASA 81mg Renal: ESRD, HD (on TThS) via right upper arm fistula Dialysis today Cardiology: Subratherapeutic INR for Atrial Fibrillation, chronic Coumadin on hold, heme studies pending + stool for occult blood Hypertension, chronic but now with hypotension, parameters added to BP meds Cardiology following Hematology: Anemia, likely chronic Rule out blood loss S/p prbc transfusion with dialysis will continue IVANIA with HD GI work up in process F.E.N. Fluids: 1.2 liter fluid restriction, tolerating PO Electrolytes: monitor Nutrition: renal diet Prophylaxis: GI: deferred DVT: subtherapeutic INR, hold coumadin, fall risk Disposition: Requires inpatient hospitalization. Full code.
--- NOTE | 2017-03-29 14:18 | PN ---
Progress Note (short form) - Note Progress Note: Chief Complaint: Events noted, notes reviewed, resting in bed no distress History of Present Illness: Seen and examined. Events noted, notes reviewed, resting in bed no distress Echocardiography reveals severely reduced LV systolic function, severe TR, moderate pulmonary HTN, mild AR, severely dilated LA and RA - Current Medication List Current Medications Budesonide/Formoterol Fumarate (Symbicort 80/4.5mcg -) 2 puff IH BID [facility] Last Admin: 03/29/17 10:06 Dose: 2 puff Carvedilol (Coreg -) 3.125 mg PO BID [facility] Last Admin: 03/29/17 09:58 Dose: Not Given Collagenase (Santyl -) 1 applic TP DAILY [facility] Last Admin: 03/29/17 10:07 Dose: 1 applic Diphenhydramine HCl (Benadryl -) 25 mg PO Q6H PRN PRN Reason: FOR ITCHING Last Admin: 03/28/17 22:29 Dose: 25 mg Docusate Sodium (Colace -) 300 mg PO HS [facility] Last Admin: 03/28/17 22:29 Dose: 300 mg Epoetin Nash (Epogen -) 20,000 units IVPUSH ONCE ONE Stop: 03/29/17 06:01 Fentanyl (Duragesic 25mcg Patch -) 1 patch TD Q72H [facility] Stop: 03/30/17 17:49 Last Admin: 03/26/17 17:51 Dose: 1 patch Piperacillin/Tazobactam/Dextrose (Zosyn 2.25gm Ivpb (Premix)) 50 mls @ 100 mls/ hr IVPB Q8H-IV [facility] PRN Reason: Protocol Last Admin: 03/29/17 10:04 Dose: 100 mls/hr Vancomycin HCl 1,000 mg/ (Dextrose) 250 mls @ 250 mls/hr IVPB ONCE ONE PRN Reason: Protocol Stop: 03/29/17 06:59 Miscellaneous (Duragesic Patch Waste) 1 each MC PRN PRN PRN Reason: PAIN Last Admin: 03/26/17 17:52 Dose: 1 each Ranitidine HCl (Zantac Oral Solution -) 150 mg PO DAILY [facility] Last Admin: 03/29/17 10:07 Dose: Not Given Rosuvastatin Calcium (Crestor -) 5 mg PO HS [facility] Last Admin: 03/28/17 22:29 Dose: 5 mg Sucralfate (Carafate Oral Suspension -) 0.5 gm PO BID [facility] Last Admin: 03/29/17 10:06 Dose: Not Given - Objective Vital Signs: Last Vital Signs Temp Pulse Resp BP Pulse Ox 97.6 F 76 20 105/57 96 03/29/17 10:00 03/29/17 10:00 03/29/17 10:00 03/29/17 10:00 03/25/17 21:00 Intake & Output 03/26/17 03/27/17 03/28/17 03/29/17 23:59 23:59 23:59 23:59 Intake Total 450 50 637 Output Total 0 Balance 450 50 637 Weight 140 lb 3 oz 137 lb 135 lb 1.6 oz 138 lb Constitutional: No Distress, Calm Neck: Supple Negative JVD Cardiovascular: S1 S2 Irregularly Irregular Grade 2/6 SM Respiratory: Diminished Gastrointestinal: Soft Benign Normal Bowel Sounds Ext: RAKA, Left Foot Dressing in Situ Labs: Hepatic Panel Total Bilirubin 0.8 mg/dL (0.2-1.0) D 03/28/17 06:20 AST 21 U/L (15-37) D 03/28/17 06:20 ALT 8 U/L (12-78) L D 03/28/17 06:20 Alkaline Phosphatase 72 U/L (45-117) 03/28/17 06:20 Albumin 2.0 g/dl (3.4-5.0) L 03/28/17 06:20 Assessment/Plan ASSESSMENT: 1. PAD post right AKA and left toe amputation, occluded left SFA post angioplasty/stent, planned for left BKA 2. CAD angina pectoris 3. Dilated cardiomyopathy with chronic class I-II NYHA classification LV systolic failure, compensated/ euvolemic 4. Persistent atrial fibrillation [id number] score of 4 off of A/C with elevated INR 5. Severe TR with pulmonary HTN 6. HTN 7. ESRD on HD 8. History of DVT 9. Anemia, dropping H/H 10. Thrombocytopenia PLAN: 1. Continue Coreg, hemodynamics permitting 2. Continue ASA with caution considering the above presentation, continue to hold Coumadin pending intervention 3. Continue Crestor 4. HD as per renal service 5. Evaluation of dropping H/H 6. As outlined patient is at intermediate clinical risk for intermediate risk procedure, but given current absence of symptoms of acute coronary syndrome and/ or de-compensated congestive heart failure and/or malignant arrhythmia, there are no absolute cardiovascular contraindications in proceeding with the planned BKA Balaji Hess M.D.
[2017-03-29 14:24] LABS: BASOPHIL 1.1 % (0-2.0); EOSINOPHIL 1.1 % (0-4.5); MCH 28.4 pg (25.7-33.7); MCHC 32.2 g/dl (32.0-35.9); MEAN CELL VOLUME 88.3 fl (80-96); MEAN PLT VOLUME 8.1 fl (7.5-11.1); PLATELET COUNT 85 K/MM3 (134-434); RDW 16.5 % (11.9-15.9)
[2017-03-29 15:03] LABS: ALBUMIN 1.8 g/dl (3.4-5.0); ANION GAP 10 (8-16); CALCIUM 7.4 mg/dL (8.5-10.1); CO2 28 mmol/L (21-32); CREATININE 4.7 mg/dL (0.7-1.3); GLUCOSE,RANDOM 80 mg/dL (74-106); SGOT/AST 12 U/L (15-37); SGPT/ALT 6 U/L (12-78)
[2017-03-29 15:05] LABS: ALK PHOS 69 U/L (45-117); BILIRUBIN,TOTAL 0.8 mg/dL (0.2-1.0); TOT PROT 4.2 g/dl (6.4-8.2)
[2017-03-29] MEDS ORDERED: EPOETIN ALFA 2,000 UNITS/1 ML VIAL SQ ONE (15:07)
--- NOTE | 2017-03-29 15:32 | PN ---
Progress Note, Physician History of Present Illness: stable no new issues - Current Medication List Current Medications: Active Medications Budesonide/Formoterol Fumarate (Symbicort 80/4.5mcg -) 2 puff IH BID [facility] Last Admin: 03/29/17 10:06 Dose: 2 puff Carvedilol (Coreg -) 3.125 mg PO BID [facility] Last Admin: 03/29/17 09:58 Dose: Not Given Collagenase (Santyl -) 1 applic TP DAILY [facility] Last Admin: 03/29/17 10:07 Dose: 1 applic Diphenhydramine HCl (Benadryl -) 25 mg PO Q6H PRN PRN Reason: FOR ITCHING Last Admin: 03/28/17 22:29 Dose: 25 mg Docusate Sodium (Colace -) 300 mg PO HS [facility] Last Admin: 03/28/17 22:29 Dose: 300 mg Epoetin Nash (Epogen -) 20,000 units SQ ONCE ONE Stop: 03/29/17 15:08 Fentanyl (Duragesic 25mcg Patch -) 1 patch TD Q72H [facility] Stop: 03/30/17 17:49 Last Admin: 03/26/17 17:51 Dose: 1 patch Piperacillin/Tazobactam/Dextrose (Zosyn 2.25gm Ivpb (Premix)) 50 mls @ 100 mls/ hr IVPB Q8H-IV [facility] PRN Reason: Protocol Last Admin: 03/29/17 10:04 Dose: 100 mls/hr Vancomycin HCl 1,000 mg/ (Dextrose) 250 mls @ 250 mls/hr IVPB ONCE ONE PRN Reason: Protocol Stop: 03/29/17 06:59 Miscellaneous (Duragesic Patch Waste) 1 each MC PRN PRN PRN Reason: PAIN Last Admin: 03/26/17 17:52 Dose: 1 each Ranitidine HCl (Zantac Oral Solution -) 150 mg PO DAILY [facility] Last Admin: 03/29/17 10:07 Dose: Not Given Rosuvastatin Calcium (Crestor -) 5 mg PO HS [facility] Last Admin: 03/28/17 22:29 Dose: 5 mg Sucralfate (Carafate Oral Suspension -) 0.5 gm PO BID [facility] Last Admin: 03/29/17 10:06 Dose: Not Given - Objective Vital Signs: Vital Signs Temperature 98.4 F 03/29/17 12:25 Pulse Rate 64 03/29/17 13:40 Respiratory Rate 18 03/29/17 13:40 Blood Pressure 98/42 03/29/17 13:40 O2 Sat by Pulse Oximetry (%) 96 03/25/17 21:00 Constitutional: Yes: No Distress, Calm Cardiovascular: Yes: Regular Rate and Rhythm Respiratory: Yes: Regular, CTA Bilaterally Gastrointestinal: Yes: Normal Bowel Sounds, Soft Musculoskeletal: Yes: Other Extremities: Yes: Other Neurological: Yes: Alert, Oriented Psychiatric: Yes: Alert Labs: CBC, BMP 03/29/17 13:30 03/29/17 13:30 INR, PTT INR 1.94 (0.82-1.09) H 03/27/17 08:45 Fibrinogen 329.0 mg/dL (238-498) 03/27/17 17:15 Assessment/Plan Problem List - Problems (1) Anemia Code(s): D64.9 - ANEMIA, UNSPECIFIED (2) Critical lower limb ischemia Code(s): I99.8 - OTHER DISORDER OF CIRCULATORY SYSTEM (3) ESRD (end stage renal disease) Code(s): N18.6 - END STAGE RENAL DISEASE (4) HTN (hypertension) Code(s): I10 - ESSENTIAL (PRIMARY) HYPERTENSION (5) Open wnd foot-complicated Code(s): S91.309A - UNSPECIFIED OPEN WOUND, UNSPECIFIED FOOT, INITIAL ENCOUNTER cardiomyopathy gangrene of the foot plan ct abx awaitig for final plan
--- NOTE | 2017-03-29 16:08 | PN ---
Progress Note (short form) - Note Progress Note: Renal follow up for ESRD on HD Pt seen and examined in the dialysis unit at the very start of dialysis pt was started on the dialysis machine but about 30 minutes into treatment his BP droped into the 80's systolic the blood flow in the AVF also diminished dialysis was terminated at that time family was at the bedside Vital Signs Temperature 98.4 F 03/29/17 12:25 Pulse Rate 64 03/29/17 13:40 Respiratory Rate 18 03/29/17 13:40 Blood Pressure 98/42 03/29/17 13:40 O2 Sat by Pulse Oximetry (%) 96 03/25/17 21:00 Intake & Output 03/26/17 03/27/17 03/28/17 03/29/17 23:59 23:59 23:59 23:59 Intake Total 450 50 637 474 Output Total 0 0 Balance 450 50 637 474 Weight 140 lb 3 oz 137 lb 135 lb 1.6 oz 138 lb distress from pain RRR CTA soft NT/ND Sacral dressing in place No LE kumar foot in dressing CBC, BMP 03/29/17 13:30 03/29/17 13:30 Current Medications Budesonide/Formoterol Fumarate (Symbicort 80/4.5mcg -) 2 puff IH BID OTIS Last Admin: 03/29/17 10:06 Dose: 2 puff Carvedilol (Coreg -) 3.125 mg PO BID OTIS Last Admin: 03/29/17 09:58 Dose: Not Given Collagenase (Santyl -) 1 applic TP DAILY [facility] Last Admin: 03/29/17 10:07 Dose: 1 applic Diphenhydramine HCl (Benadryl -) 25 mg PO Q6H PRN PRN Reason: FOR ITCHING Last Admin: 03/28/17 22:29 Dose: 25 mg Docusate Sodium (Colace -) 300 mg PO HS [facility]IS Last Admin: 03/28/17 22:29 Dose: 300 mg Epoetin Nash (Epogen -) 20,000 units SQ ONCE ONE Stop: 03/29/17 15:08 Fentanyl (Duragesic 25mcg Patch -) 1 patch TD Q72H [facility] Stop: 03/30/17 17:49 Last Admin: 03/26/17 17:51 Dose: 1 patch Piperacillin/Tazobactam/Dextrose (Zosyn 2.25gm Ivpb (Premix)) 50 mls @ 100 mls/ hr IVPB Q8H-IV [facility] PRN Reason: Protocol Last Admin: 03/29/17 10:04 Dose: 100 mls/hr Vancomycin HCl 1,000 mg/ (Dextrose) 250 mls @ 250 mls/hr IVPB ONCE ONE PRN Reason: Protocol Stop: 03/29/17 06:59 Miscellaneous (Duragesic Patch Waste) 1 each MC PRN PRN PRN Reason: PAIN Last Admin: 03/26/17 17:52 Dose: 1 each Ranitidine HCl (Zantac Oral Solution -) 150 mg PO DAILY [facility] Last Admin: 03/29/17 10:07 Dose: Not Given Rosuvastatin Calcium (Crestor -) 5 mg PO HS OT[facility] Last Admin: 03/28/17 22:29 Dose: 5 mg Sucralfate (Carafate Oral Suspension -) 0.5 gm PO BID OTIS Last Admin: 03/29/17 10:06 Dose: Not Given 77 year old gentleman with PMhx of ESRD on HD (TTS), Hypertension, DVT, PVD s/p right AKA and left toe amputation who presented to the ED with complaints of pain in his left foot and admitted fro soft tissue infection of the foot with concern for worsening ischemic disease. #ESRD on HD dialysis procedure was aborted today b/c of low BP and poor flow in the AVF ? etiolgoy of hypotension - related to sepsis will reaccess for need for dialysis in the AM if AVF not functioning well, will need doppler of AVF and vascular follow up #Wound/Ischemia of left LE s/p angioplasty and stenting continue Abx as per ID will check Vanco level and redose if needed #Acute on Chronic Anemia likely due to infection but need to r/o blood loss s/p transfusion wth good response to get IVANIA SC today trend CBC #Sacral stage 1 decubitis continue supportive care fentayl patch Thank you Raghu Boogie DO Problem List - Problems (1) Critical lower limb ischemia Code(s): I99.8 - OTHER DISORDER OF CIRCULATORY SYSTEM (2) Open wnd foot-complicated Code(s): S91.309A - UNSPECIFIED OPEN WOUND, UNSPECIFIED FOOT, INITIAL ENCOUNTER (3) HTN (hypertension) Code(s): I10 - ESSENTIAL (PRIMARY) HYPERTENSION Qualifiers: Hypertension type: essential hypertension Qualified Code(s): I10 - Essential (primary) hypertension (4) ESRD (end stage renal disease) Code(s): N18.6 - END STAGE RENAL DISEASE (5) Anemia Code(s): D64.9 - ANEMIA, UNSPECIFIED
[2017-03-29 16:41] LABS: INR 1.35 (0.82-1.09); PROTHROMBIN TIME (PATIENT) 15.2 SEC (9.98-11.88)
[2017-03-29 16:44] LABS: ACTIVATED PTT 29.8 SECONDS (26.9-34.4)
--- NOTE | 2017-03-29 17:19 | PN ---
Progress Note (short form) - Note Progress Note: Vascular Surgery Cardiology note appreciated. Pt is cleared for left bka Will plan for thurs. Faizan Villa DO
[2017-03-29] MEDS: fentaNYL 25mcg/hr PATCH.TD72 TD SCH (17:44)
[2017-03-29] MEDS: FENTANYL PATCH WASTE MC PRN (17:45)
[2017-03-29] MEDS ORDERED: EPOETIN ALFA 20,000 UNIT/1 ML VIAL SQ ONE (17:45)
--- NOTE | 2017-03-29 18:27 | PN ---
Progress Note (short form) - Note Progress Note: Patient seen and examined Scheduled for surgery. Has thrombocytopenia, coagulopathy. Mixing studies and LAC still not available Will recheck platelets and coags prior to procedure. Will need products
[2017-03-29] MEDS ORDERED: VANCOMYCIN 1,000 MG in DEXTROSE 5%-WATER - 250 ML IVPB ONE (18:45)
[2017-03-29] MEDS: diphenhydrAMINE HCL 25 MG CAPSULE (FP) PO PRN (20:21)
[2017-03-29] MEDS: DOCUSATE SODIUM 100 MG CAPSULE (FP) PO SCH (21:30)
[2017-03-29] MEDS: ROSUVASTATIN CA 5 MG TABLET (FP) PO SCH (21:31)
[2017-03-30] MEDS ORDERED: PT OWN MED DRAWER 7, Y5N ONE ×3 (01:08→23:02)
[2017-03-30] MEDS: PIPERACILLIN/TAZOB 2.25 GM 50 ML IVPB SCH ×3 (01:14→17:42)
[2017-03-30 06:08] LABS: APTT 58.5 sec (22.9-30.2); APTT 1:1 NP MIX 60 MIN INCB 34.7 sec (22.9-30.2); APTT NP CONTROL 37.8 sec (22.9-30.2); PT 19.1 sec (9.6-11.5); PT 1:1 1 HOUR INCUBATED 11.9 sec (9.6-11.5); PT 1:1 NP 11.6 sec (9.6-11.5)
[2017-03-30 08:03] LABS: BASOPHIL 1.4 % (0-2.0); EOSINOPHIL 0.8 % (0-4.5); MCH 28.5 pg (25.7-33.7); MCHC 32.1 g/dl (32.0-35.9); MEAN CELL VOLUME 88.8 fl (80-96); PLATELET COUNT 77 K/MM3 (134-434); RDW 16.9 % (11.9-15.9); WHITE BLOOD COUNT 5.6 K/mm3 (4.0-10.0)
[2017-03-30 08:07] LABS: LAC INTERPRETATION Comment: (.); PTT-LA MIX 89.4 sec (0.0-48.9)
[2017-03-30 08:15] LABS: ALBUMIN 1.9 g/dl (3.4-5.0); ALK PHOS 71 U/L (45-117); ANION GAP 14 (8-16); BILIRUBIN,TOTAL 0.8 mg/dL (0.2-1.0); CALCIUM 7.1 mg/dL (8.5-10.1); CO2 25 mmol/L (21-32); CREATININE 5.7 mg/dL (0.7-1.3); GLUCOSE,RANDOM 74 mg/dL (74-106); SGOT/AST 13 U/L (15-37); SGPT/ALT < 6 U/L (12-78); TOT PROT 4.5 g/dl (6.4-8.2)
[2017-03-30 08:17] LABS: INR 1.44 (0.82-1.09); PROTHROMBIN TIME (PATIENT) 16.3 SEC (9.98-11.88)
[2017-03-30 08:20] LABS: ACTIVATED PTT 41.8 SECONDS (26.9-34.4)
[2017-03-30 09:07] LABS: PHOSPHOROUS 1.7 mg/dL (2.5-4.9)
[2017-03-30] MEDS: COLLAGENASE CLOSTRIDIUM HIST. 30 GRAMS TUBE TP SCH (11:21)
[2017-03-30] MEDS: CARVEDILOL 3.125 MG TABLET (FP) PO SCH ×2 (11:28→22:36)
[2017-03-30] MEDS: BUDESONIDE/FORMETEROL FUMARATE 80/4.5 mcg INHALER IH SCH ×2 (11:28→22:21)
[2017-03-30] MEDS: SUCRALFATE 1 GM/10 ML UNIT DOSE CUPS PO SCH ×2 (11:33→22:20)
[2017-03-30] MEDS: RANITIDINE HCL 150 MG/10 ML UNIT-DOSE PO SCH (11:34)
--- NOTE | 2017-03-30 11:51 | PN ---
Progress Note, Physician History of Present Illness: stable plan for surgery tomorrow - Current Medication List Current Medications: Active Medications Budesonide/Formoterol Fumarate (Symbicort 80/4.5mcg -) 2 puff IH BID [facility] Last Admin: 03/30/17 11:28 Dose: 2 puff Carvedilol (Coreg -) 3.125 mg PO BID [facility] Last Admin: 03/30/17 11:28 Dose: 3.125 mg Collagenase (Santyl -) 1 applic TP DAILY [facility] Last Admin: 03/30/17 11:21 Dose: 1 applic Diphenhydramine HCl (Benadryl -) 25 mg PO Q6H PRN PRN Reason: FOR ITCHING Last Admin: 03/29/17 20:21 Dose: 25 mg Docusate Sodium (Colace -) 300 mg PO HS [facility] Last Admin: 03/29/17 21:30 Dose: 300 mg Fentanyl (Duragesic 25mcg Patch -) 1 patch TD Q72H [facility] Stop: 03/30/17 17:49 Last Admin: 03/29/17 17:44 Dose: 1 patch Piperacillin/Tazobactam/Dextrose (Zosyn 2.25gm Ivpb (Premix)) 50 mls @ 100 mls/ hr IVPB Q8H-IV [facility] PRN Reason: Protocol Last Admin: 03/30/17 11:21 Dose: 100 mls/hr Miscellaneous (Duragesic Patch Waste) 1 each MC PRN PRN PRN Reason: PAIN Last Admin: 03/29/17 17:45 Dose: 1 each Ranitidine HCl (Zantac Oral Solution -) 150 mg PO DAILY [facility] Last Admin: 03/30/17 11:34 Dose: Not Given Rosuvastatin Calcium (Crestor -) 5 mg PO HS [facility] Last Admin: 03/29/17 21:31 Dose: 5 mg Sucralfate (Carafate Oral Suspension -) 0.5 gm PO BID [facility] Last Admin: 03/30/17 11:33 Dose: Not Given - Objective Vital Signs: Vital Signs Temperature 98.2 F 03/30/17 06:24 Pulse Rate 103 H 03/30/17 06:24 Respiratory Rate 20 03/30/17 06:24 Blood Pressure 102/60 03/30/17 06:24 O2 Sat by Pulse Oximetry (%) 95 03/29/17 21:00 Constitutional: Yes: No Distress, Calm Cardiovascular: Yes: Regular Rate and Rhythm Respiratory: Yes: Regular, CTA Bilaterally Musculoskeletal: Yes: Other Extremities: Yes: Other (gangrene) Neurological: Yes: Alert, Oriented Psychiatric: Yes: Alert, Oriented Labs: CBC, BMP 03/30/17 06:10 INR, PTT INR 1.44 (0.82-1.09) H 03/30/17 06:10 Fibrinogen 296.0 mg/dL (238-498) D 03/30/17 06:10 Assessment/Plan Problem List - Problems (1) Anemia Code(s): D64.9 - ANEMIA, UNSPECIFIED (2) Critical lower limb ischemia Code(s): I99.8 - OTHER DISORDER OF CIRCULATORY SYSTEM (3) ESRD (end stage renal disease) Code(s): N18.6 - END STAGE RENAL DISEASE (4) HTN (hypertension) Code(s): I10 - ESSENTIAL (PRIMARY) HYPERTENSION (5) Open wnd foot-complicated Code(s): S91.309A - UNSPECIFIED OPEN WOUND, UNSPECIFIED FOOT, INITIAL ENCOUNTER cardiomyopathy gangrene of the foot plan ct abx patient for surgery rest as per the team
--- NOTE | 2017-03-30 13:00 | SPA.PREOP ---
- PRE-OP NOTE Dx: left leg gangrene Planned Procedure: Left BKA Surgeon: Dr. Villa Last Vital Signs Temp Pulse Resp BP Pulse Ox 98.2 F 103 H 20 102/60 95 03/30/17 06:24 03/30/17 06:24 03/30/17 06:24 03/30/17 06:24 03/29/17 21:00 Lab Results WBC 5.6 K/mm3 (4.0-10.0) 03/30/17 06:10 RBC 2.89 M/mm3 (4.00-5.60) L 03/30/17 06:10 Hgb 8.2 GM/dL (11.7-16.9) L 03/30/17 06:10 Hct 25.7 % (35.4-49) L 03/30/17 06:10 MCV 88.8 fl (80-96) 03/30/17 06:10 MCHC 32.1 g/dl (32.0-35.9) 03/30/17 06:10 RDW 16.9 % (11.9-15.9) H 03/30/17 06:10 Plt Count 77 K/MM3 (134-434) L 03/30/17 06:10 Sodium 143 mmol/L (136-145) 03/29/17 13:30 Potassium 3.3 mmol/L (3.5-5.1) L 03/29/17 13:30 Chloride 105 mmol/L (98-107) 03/29/17 13:30 Carbon Dioxide 28 mmol/L (21-32) 03/29/17 13:30 Anion Gap 10 (8-16) 03/29/17 13:30 BUN 30 mg/dL (7-18) H 03/29/17 13:30 Creatinine 4.7 mg/dL (0.7-1.3) H D 03/29/17 13:30 Random Glucose 80 mg/dL (74-106) 03/29/17 13:30 Calcium 7.4 mg/dL (8.5-10.1) L 03/29/17 13:30 Blood Type O POSITIVE 03/27/17 17:15 Antibody Screen Negative 03/27/17 17:15 INR 1.44 (0.82-1.09) H 03/30/17 06:10 - ASSESSMENT/PLAN plan for left bka tomorrow 1. Make NPO after midnight except po meds 2. GI/DVT PPX 3. Medical optimization / clearance 4. Blood transfusion with HD tomorrow 5. Platlets operations developer to OR in the am D/w Dr. Villa Visit type - Case Type Case Type: ED Admission - Emergency Emergency Visit: Yes ED Registration Date: 03/14/17 Care time: The patient presented to the Emergency Department on the above date and was hospitalized for further evaluation of their emergent condition. - New patient This patient is new to me today: No
[2017-03-30] MEDS ORDERED: PHYTONADIONE 5 MG TABLET PO ONE (14:48)
--- NOTE | 2017-03-30 14:49 | PN ---
Progress Note (short form) - Note Progress Note: Pt seen and examined. Chart reviewed in detail. All the consults notes reviewed. Labs reviewed. ROS unobtainable owing to his baseline O/E: Constitutional: Yes: calm HENT: Yes: Atraumatic, Normocephalic Neck: Yes: Supple Cardiovascular: Yes: WNL Respiratory: Yes: Tachypnea Extremities: Yes: Other (dressing LLE) Neurological: Yes: Alert, Other (awake, oriented to person, not to time) Labs: Last Vital Signs Temp Pulse Resp BP Pulse Ox 97.3 F L 74 16 85/45 94 L 03/23/17 15:03 03/23/17 15:03 03/23/17 15:03 03/23/17 15:03 03/22/17 21:00 Current Medications Generic Name Dose Route Start Last Admin Trade Name Freq PRN Reason Stop Dose Admin Alprazolam 0.5 mg 03/20/17 22:00 03/22/17 22:11 Xanax - PO 0.5 mg HS OTIS Administration Aspirin 81 mg 03/18/17 10:00 03/23/17 10:04 Asa - PO 81 mg DAILY OTIS Administration Budesonide/Formoterol Fumarate 2 puff 03/17/17 22:00 03/23/17 10:05 Symbicort 80/4.5mcg - IH 2 puff BID OTIS Administration Carvedilol 3.125 mg 03/21/17 15:27 03/23/17 10:04 Coreg - PO 3.125 mg BID OTIS Administration Collagenase 1 applic 03/18/17 11:00 03/23/17 10:06 Santyl - TP 1 applic DAILY [facility] Administration Diphenhydramine HCl 25 mg 03/17/17 13:24 Benadryl - PO Q6H PRN FOR ITCHING Docusate Sodium 300 mg 03/22/17 22:00 03/22/17 22:11 Colace - PO 300 mg HS OTIS Administration Epoetin Nash 10,000 units 03/24/17 06:00 Epogen - IVPUSH 03/24/17 06:01 ONCE ONE Fentanyl 1 patch 03/23/17 18:00 Duragesic 25mcg Patch - TD 03/30/17 17:49 Q72H OTIS Piperacillin/Tazobactam/Dextrose 50 mls @ 100 mls/hr 03/17/17 15:15 03/23/17 17:48 Zosyn 2.25gm Ivpb (Premix) IVPB 100 mls/hr Q8H-IV [facility] Administration Protocol Vancomycin HCl 1,000 mg/ 250 mls @ 250 mls/hr 03/24/17 06:00 Dextrose IVPB 03/24/17 06:59 ONCE ONE Protocol Miscellaneous 1 each 03/23/17 17:49 Duragesic Patch Waste MC PRN PRN PAIN Morphine Sulfate 2 mg 03/21/17 15:12 03/23/17 11:17 Morphine Sulfate IVPUSH 2 mg Q6H PRN Administration PAIN Ranitidine HCl 150 mg 03/18/17 10:00 03/23/17 10:08 Zantac Oral Solution - PO 150 mg DAILY OTIS Administration Rosuvastatin Calcium 5 mg 03/23/17 22:00 Crestor - PO HS OTIS Sucralfate 0.5 gm 03/17/17 22:00 03/23/17 10:04 Carafate Oral Suspension - PO 0.5 gm BID OTIS Administration CBC, BMP 03/23/17 06:20 03/23/17 06:20 INR, PTT INR 2.82 (0.82-1.09) H D 03/23/17 06:20 Fibrinogen 394.0 mg/dL (238-498) 03/23/17 06:20 Coagulopathy gangrene Sepsis from gangrene ESRD Afib was on heparin AMS AAA Liver Cirrhosis Lung Nodule s/p R AKA Now for surgery, planned for tomorrow Platelets , PRBC prior to Procedure vit K one dose today Mixing studies no LA d/w RN , renal
--- NOTE | 2017-03-30 15:27 | PN ---
Physical Exam: SUBJECTIVE: Patient seen and examined at the bedside. OBJECTIVE: Patient is scheduled for a left BKA tomorrow, NPO at midnight Platelet transfusion nurse practitioner home assessments to the OR, blood transfusion with HD tomorrow Vital Signs Period Temp Pulse Resp BP Sys/Coleman Pulse Ox Last 24 Hr 97.5 F-98.2 F 76-103 18-20 91-124/50-71 95-95 GENERAL: Awake, alert, and fully oriented, arabic speaking HEAD: Normal with no signs of trauma. EYES: Pupils equal, round and reactive to light, extraocular movements intact, sclera anicteric, conjunctiva clear. No lid lag. EARS, NOSE, THROAT: Ears normal, nares patent, oropharynx clear without exudates. Moist mucous membranes. NECK: Normal range of motion, supple without lymphadenopathy, JVD, or masses. LUNGS: Breath sounds diminished bilaterall, no wheezing, +fine crackles on right mid lobe, oxygen stable on room air HEART: irregular heart rate, hx of afib ABDOMEN: Soft, nontender, not distended, normoactive bowel sounds, no guarding, no rebound, no masses. No hepatomegaly or splenomegaly. UPPER EXTREMITIES: AV fistula RUE, thrill/bruit present. AV fistula LUE not working LOWER EXTREMITIES: + 3 left lower ext pitting peripheral edema. Right AKA, Left foot with gangrenous toes, gangrene spreading to anterior aspect of foot, discolored foot NEUROLOGICAL: Normal speech. PSYCHIATRIC: restless SKIN: Sacral stage II, present on admission Laboratory Results - last 24 hr 03/26/17 03/26/17 03/27/17 14:00 14:00 17:15 WBC RBC Hgb Hct MCV MCH MCHC RDW Plt Count MPV Neutrophils % Lymphocytes % Monocytes % Eosinophils % Basophils % PT with INR INR PTT (Actin FS) Saline-Adjusted PTT 119.4 PT Mixing Study 19.1 H PTT Patient/Cntrl Mix 37.8 H PTT Normal Plasma Pre 31.6 H Fibrinogen Lupus Anticoag PTT Mix 89.4 H LA PTT Baseline 117.5 H dRVVT Confirm Interp 53.7 H dRVVT Mixing Study 41.2 Hexagonal Phospholipid 13 H Sodium Potassium Chloride Carbon Dioxide Anion Gap BUN Creatinine Creat Clearance w eGFR Random Glucose Calcium Phosphorus Total Bilirubin AST ALT Alkaline Phosphatase Total Protein Albumin Stool Occult Blood Random Vancomycin Blood Type O POSITIVE Antibody Screen Negative Crossmatch See Detail 11/14/17 11/14/17 11/14/17 13:30 13:30 13:30 WBC 6.0 RBC 2.79 L Hgb 7.9 L Hct 24.6 L MCV 88.3 MCH 28.4 MCHC 32.2 RDW 16.5 H Plt Count 85 L MPV 8.1 Neutrophils % 81.0 Lymphocytes % 8.4 D Monocytes % 8.4 Eosinophils % 1.1 Basophils % 1.1 PT with INR INR PTT (Actin FS) Saline-Adjusted PTT PT Mixing Study PTT Patient/Cntrl Mix PTT Normal Plasma Pre Fibrinogen Lupus Anticoag PTT Mix LA PTT Baseline dRVVT Confirm Interp dRVVT Mixing Study Hexagonal Phospholipid Sodium 143 Potassium 3.3 L Chloride 105 Carbon Dioxide 28 Anion Gap 10 BUN 30 H Creatinine 4.7 H D Creat Clearance w eGFR 12.18 Random Glucose 80 Calcium 7.4 L Phosphorus 1.7 L Cancelled Total Bilirubin 0.8 AST 12 L D ALT 6 L D Alkaline Phosphatase 69 Total Protein 4.2 L Albumin 1.8 L Stool Occult Blood Random Vancomycin Blood Type Antibody Screen Crossmatch 03/29/17 03/29/17 03/30/17 15:00 15:00 06:10 WBC 5.6 RBC 2.89 L Hgb 8.2 L Hct 25.7 L MCV 88.8 MCH 28.5 MCHC 32.1 RDW 16.9 H Plt Count 77 L MPV 8.0 Neutrophils % 81.0 Lymphocytes % 6.8 L Monocytes % 10.0 Eosinophils % 0.8 Basophils % 1.4 PT with INR 15.20 H INR 1.35 H D PTT (Actin FS) 29.8 D Saline-Adjusted PTT PT Mixing Study PTT Patient/Cntrl Mix PTT Normal Plasma Pre Fibrinogen 193.0 L D Lupus Anticoag PTT Mix LA PTT Baseline dRVVT Confirm Interp dRVVT Mixing Study Hexagonal Phospholipid Sodium Potassium Chloride Carbon Dioxide Anion Gap BUN Creatinine Creat Clearance w eGFR Random Glucose Calcium Phosphorus Total Bilirubin AST ALT Alkaline Phosphatase Total Protein Albumin Stool Occult Blood Random Vancomycin 13.909 Blood Type Antibody Screen Crossmatch 03/30/17 03/30/17 03/30/17 06:10 06:10 09:00 WBC RBC Hgb Hct MCV MCH MCHC RDW Plt Count MPV Neutrophils % Lymphocytes % Monocytes % Eosinophils % Basophils % PT with INR 16.30 H INR 1.44 H PTT (Actin FS) 41.8 H D Saline-Adjusted PTT PT Mixing Study PTT Patient/Cntrl Mix PTT Normal Plasma Pre Fibrinogen 296.0 D Lupus Anticoag PTT Mix LA PTT Baseline dRVVT Confirm Interp dRVVT Mixing Study Hexagonal Phospholipid Sodium 140 Potassium 3.1 L Chloride 101 Carbon Dioxide 25 Anion Gap 14 BUN 32 H Creatinine 5.7 H D Creat Clearance w eGFR 9.75 Random Glucose 74 Calcium 7.1 L Phosphorus Total Bilirubin 0.8 AST 13 L ALT < 6 L Alkaline Phosphatase 71 Total Protein 4.5 L Albumin 1.9 L Stool Occult Blood Positive Random Vancomycin Blood Type Antibody Screen Crossmatch 03/30/17 13:40 WBC RBC Hgb Hct MCV MCH MCHC RDW Plt Count MPV Neutrophils % Lymphocytes % Monocytes % Eosinophils % Basophils % PT with INR INR PTT (Actin FS) Saline-Adjusted PTT PT Mixing Study PTT Patient/Cntrl Mix PTT Normal Plasma Pre Fibrinogen Lupus Anticoag PTT Mix LA PTT Baseline dRVVT Confirm Interp dRVVT Mixing Study Hexagonal Phospholipid Sodium Potassium Chloride Carbon Dioxide Anion Gap BUN Creatinine Creat Clearance w eGFR Random Glucose Calcium Phosphorus Total Bilirubin AST ALT Alkaline Phosphatase Total Protein Albumin Stool Occult Blood Random Vancomycin Blood Type O POSITIVE Antibody Screen Negative Crossmatch Active Medications Generic Name Dose Route Start Last Admin Trade Name Freq PRN Reason Stop Dose Admin Budesonide/Formoterol Fumarate 2 puff 03/17/17 22:00 03/30/17 11:28 Symbicort 80/4.5mcg - IH 2 puff BID OTIS Administration Carvedilol 3.125 mg 03/21/17 15:27 03/30/17 11:28 Coreg - PO 3.125 mg BID OTIS Administration Collagenase 1 applic 03/18/17 11:00 03/30/17 11:21 Santyl - TP 1 applic DAILY [facility] Administration Diphenhydramine HCl 25 mg 03/17/17 13:24 03/29/17 20:21 Benadryl - PO 25 mg Q6H PRN Administration FOR ITCHING Docusate Sodium 300 mg 03/22/17 22:00 03/29/17 21:30 Colace - PO 300 mg HS OTIS Administration Fentanyl 1 patch 03/23/17 18:00 03/29/17 17:44 Duragesic 25mcg Patch - TD 03/30/17 17:49 1 patch Q72H [facility]IS Administration Piperacillin/Tazobactam/Dextrose 50 mls @ 100 mls/hr 03/17/17 15:15 03/30/17 11:21 Zosyn 2.25gm Ivpb (Premix) IVPB 100 mls/hr Q8H-IV [facility] Administration Protocol Miscellaneous 1 each 03/23/17 17:49 03/29/17 17:45 Duragesic Patch Waste MC 1 each PRN PRN Administration PAIN Ranitidine HCl 150 mg 03/18/17 10:00 03/30/17 11:34 Zantac Oral Solution - PO Not Given DAILY [facility]IS Rosuvastatin Calcium 5 mg 03/23/17 22:00 03/29/17 21:31 Crestor - PO 5 mg HS OTIS Administration Sucralfate 0.5 gm 03/17/17 22:00 03/30/17 11:33 Carafate Oral Suspension - PO Not Given BID [facility] ASSESSMENT/PLAN: Patient is a 77 year old male with a significant past medical history of ESRD HD (T,,), atrial fib, hypertension, DVT, right AKA, s/p left 2nd digit amputation lower extremity. He presented to the ED on 03/14/2017 for critical ischemia of left lower extremity. Patient is Samoan speaking only and family reports having increased swelling to his left lower extremity. Pt comes with right AKA and a left middle toe amputation that was performed 3 weeks ago in [facility], where pt has been living for the past several years. Patient has medical records from [facility] in his file. On admission there is an infection of the left foot with gangrene of 2nd toe and +3 edema of the entire lower leg, and a lateral small circular ulceration. Pt comes with documentation from [facility] reflecting that he had patent DP and PT vessels in September of this year. Previous arterial study of left extremity reveals permeable arterial flow throughout extending from femoral to posterior tibial pulse. Imagin03/14/2017: CT/Abdomen CTA AOR & RLE Runoff: Extensive severe diffuse aortoiliac , femoro-popliteal and intrapopliteal, occluded left SFA and mucus occlusion of flow in a severely diseased the renal artery demonstrates at lease 70-90% stenosis. Occluded left ENMANUEL and two vessel runoff provided by [employer] and PA however degree of disease and stenosis cannot be discerned due to calcification and hardening artifacts. enlarged prostate. Small right sided pleural effusion with severe right lung base atelectic changes vs pnemonic infiltrates. 03/14/2017: US/Duplex arterial legs, limited ultrasound: Extensive artheroscleoric disease with occlusion of the SFA. There is weak, monosphasic flow present within the popliteal and posterior tibial arteries. Abdominal CTA 03/27/2017 (1) infrarenal abdominal aortic aneurysm measuring 4.6cm, similar to CTA seen on imaging 03/14/17, no dissection seen. (2) Bilateral ectatic common iliac arteries measuring up to 1.9 cm with severe calcific alherosclerosis. (3) severe high grade ostial stenosis of bilateral renal arteries with near complete occlusion. (4) significant calcific altherosclerosis at the ostia of the celiac trunk and SMA likely resulting in less than 50% stenosis (5) Calcification of the aortic valve, prominent left coronary cusp, (6) incompletely imaged bilateral pleural effusions (7) cirrhotic configuration of the liver and evidence of portal hypertension with spenomegaly. (8) apparent wall thickent of nearl the entire colon (9) marked enlargement of the prostate gland. Vascular/ID: Sepsis secondary to ischemic Left foot, acute S/p left lower extremity angiogram/angioplasty and stent placement on 03/16 On Vanco and Zosyn as per ID, renally dosed - Vanco with dialysis Now with hypercoag state likely secondary to sepsis, heme following Left bka planned for tomorrow, HD with dialysis tomorrow, platelets nurse practitioner home assessments to OR, NPO @ midnight Cleared by cardiology for procedure Hematology: Coagulopathy (prolonged PTT/PT), improving Thrombocytopenia, improving HIT negative PTT mixed studies pending with prolonged PTT and risk of falls (had fallen during admission), will defer AC at this time Thrombocytopenia, likely secondary to sepsis, improving 1 unit of platelets nurse practitioner home assessments to OR Neuro: Acute Metabolic Encephalopathy likely secondary to septic left foot Left BKA tomorrow Renal: ESRD, HD (on TThS) via right upper arm fistula Dialysis tomorrow, unable to tolerate dialysis yesterday due to hypotension and AVF access Cardiology: Subtherapeutic INR for Atrial Fibrillation, chronic Coumadin on hold, heme studies pending + stool for occult blood Hypertension, chronic but now with hypotension, parameters added to BP meds Cardiology following Hematology: Anemia, likely chronic Rule out blood loss Blood with dialysis tomorrow will continue IVANIA with HD GI work up in process F.E.N. Fluids: 1.2 liter fluid restriction, tolerating PO Electrolytes: monitor Nutrition: renal diet Prophylaxis: GI: deferred DVT: subtherapeutic INR, hold coumadin, fall risk Disposition: Requires inpatient hospitalization. Full code.
[2017-03-30] MEDS: ROSUVASTATIN CA 5 MG TABLET (FP) PO SCH (22:20)
[2017-03-30] MEDS: DOCUSATE SODIUM 100 MG CAPSULE (FP) PO SCH (22:20)
[2017-03-31] MEDS: PIPERACILLIN/TAZOB 2.25 GM 50 ML IVPB SCH ×2 (01:18→10:42)
[2017-03-31] MEDS: diphenhydrAMINE HCL 25 MG CAPSULE (FP) PO PRN (01:32)
[2017-03-31] MEDS: MIDODRINE HCL 5 MG TABLET PO SCH ×4 (07:29→18:18)
[2017-03-31 08:54] LABS: BASOPHIL 1.4 % (0-2.0); EOSINOPHIL 1.8 % (0-4.5); MCH 28.6 pg (25.7-33.7); MCHC 32.3 g/dl (32.0-35.9); MEAN CELL VOLUME 88.3 fl (80-96); MEAN PLT VOLUME 7.7 fl (7.5-11.1); NEUTROPHILS 76.1 % (42.8-82.8); PLATELET COUNT 63 K/MM3 (134-434); RDW 17.8 % (11.9-15.9); WHITE BLOOD COUNT 5.3 K/mm3 (4.0-10.0)
[2017-03-31 09:06] LABS: INR 1.34 (0.82-1.09); PROTHROMBIN TIME (PATIENT) 15.1 SEC (9.98-11.88)
[2017-03-31 09:29] LABS: ALBUMIN 1.8 g/dl (3.4-5.0); ANION GAP 11 (8-16); CALCIUM 7.4 mg/dL (8.5-10.1); CO2 27 mmol/L (21-32); GLUCOSE,RANDOM 73 mg/dL (74-106); SGOT/AST 9 U/L (15-37)
[2017-03-31 09:31] LABS: ALK PHOS 68 U/L (45-117); BILIRUBIN,TOTAL 0.6 mg/dL (0.2-1.0); CREATININE 5.9 mg/dL (0.7-1.3); SGPT/ALT < 6 U/L (12-78); TOT PROT 4.2 g/dl (6.4-8.2)
[2017-03-31] MEDS ORDERED: EPOETIN ALFA 2,000 UNITS/1 ML VIAL IVPUSH ONE ×2 (10:15→16:14)
[2017-03-31] MEDS ORDERED: EPOETIN ALFA 20,000 UNIT/1 ML VIAL IVPUSH ONE (10:15)
[2017-03-31] MEDS ORDERED: VANCOMYCIN 500 MG in DEXTROSE 5%-WATER - 100 ML IVPB ONE (10:15)
[2017-03-31] MEDS: CARVEDILOL 3.125 MG TABLET (FP) PO SCH ×2 (10:41→22:50)
[2017-03-31] MEDS: SUCRALFATE 1 GM/10 ML UNIT DOSE CUPS PO SCH ×2 (10:41→22:48)
[2017-03-31] MEDS: COLLAGENASE CLOSTRIDIUM HIST. 30 GRAMS TUBE TP SCH (10:42)
[2017-03-31] MEDS: RANITIDINE HCL 150 MG/10 ML UNIT-DOSE PO SCH (10:42)
[2017-03-31] MEDS: BUDESONIDE/FORMETEROL FUMARATE 80/4.5 mcg INHALER IH SCH ×2 (10:42→22:52)
[2017-03-31] MEDS ORDERED: DEXAMETHASONE SOD PHOSPHATE/PF 10 MG/ML SDV ONE (11:49)
[2017-03-31] MEDS ORDERED: ROPIVACAINE HCL 0.5% 30ML VIAL ONE (11:49)
[2017-03-31] MEDS ORDERED: MIDAZOLAM HCL 2 MG/2 ML SINGLE DOSE VIAL ONE ×2 (11:50)
[2017-03-31 12:15] LABS: PHOSPHOROUS 2.5 mg/dL (2.5-4.9)
--- NOTE | 2017-03-31 13:56 | PN ---
Progress Note, Physician History of Present Illness: post op bka patient stable in icu - Current Medication List Current Medications: Active Medications Budesonide/Formoterol Fumarate (Symbicort 80/4.5mcg -) 2 puff IH BID [facility] Last Admin: 03/31/17 10:42 Dose: Not Given Carvedilol (Coreg -) 3.125 mg PO BID [facility] Last Admin: 03/31/17 10:41 Dose: Not Given Collagenase (Santyl -) 1 applic TP DAILY [facility] Last Admin: 03/31/17 10:42 Dose: Not Given Diphenhydramine HCl (Benadryl -) 25 mg PO Q6H PRN PRN Reason: FOR ITCHING Last Admin: 03/31/17 01:32 Dose: 25 mg Docusate Sodium (Colace -) 300 mg PO HS [facility] Last Admin: 03/30/17 22:20 Dose: 300 mg Piperacillin/Tazobactam/Dextrose (Zosyn 2.25gm Ivpb (Premix)) 50 mls @ 100 mls/ hr IVPB Q8H-IV [facility] PRN Reason: Protocol Last Admin: 03/31/17 10:42 Dose: Not Given Midodrine (Proamatine -) 10 mg PO TID-[facility]ID [facility] Last Admin: 03/31/17 10:41 Dose: Not Given Miscellaneous (Duragesic Patch Waste) 1 each [facility] PRN PRN PRN Reason: PAIN Last Admin: 03/29/17 17:45 Dose: 1 each Ranitidine HCl (Zantac Oral Solution -) 150 mg PO DAILY [facility] Last Admin: 03/31/17 10:42 Dose: Not Given Rosuvastatin Calcium (Crestor -) 5 mg PO HS [facility] Last Admin: 03/30/17 22:20 Dose: 5 mg Sucralfate (Carafate Oral Suspension -) 0.5 gm PO BID [facility] Last Admin: 03/31/17 10:41 Dose: Not Given - Objective Vital Signs: Vital Signs Temperature 98.5 F 03/31/17 08:00 Pulse Rate 82 03/31/17 11:30 Respiratory Rate 18 03/31/17 11:30 Blood Pressure 134/62 03/31/17 11:30 O2 Sat by Pulse Oximetry (%) 95 03/31/17 09:00 Constitutional: Yes: No Distress, Calm Cardiovascular: Yes: Regular Rate and Rhythm Respiratory: Yes: Regular, CTA Bilaterally Gastrointestinal: Yes: Normal Bowel Sounds, Soft Musculoskeletal: Yes: Other Extremities: Yes: Other Wound/Incision: Yes: Dressing Dry and Intact Neurological: Yes: Alert, Oriented Psychiatric: Yes: Alert, Oriented Labs: CBC, BMP 03/31/17 07:10 03/31/17 07:10 INR, PTT INR 1.34 (0.82-1.09) H 03/31/17 07:10 Fibrinogen 296.0 mg/dL (238-498) D 03/30/17 06:10 Assessment/Plan Problem List - Problems (1) Anemia Code(s): D64.9 - ANEMIA, UNSPECIFIED (2) Critical lower limb ischemia Code(s): I99.8 - OTHER DISORDER OF CIRCULATORY SYSTEM (3) ESRD (end stage renal disease) Code(s): N18.6 - END STAGE RENAL DISEASE (4) HTN (hypertension) Code(s): I10 - ESSENTIAL (PRIMARY) HYPERTENSION (5) Open wnd foot-complicated Code(s): S91.309A - UNSPECIFIED OPEN WOUND, UNSPECIFIED FOOT, INITIAL ENCOUNTER cardiomyopathy gangrene of the foot plan ct abx post op bka will see how patient does will d/c abx once patient is stable rest as per primary team cc time 40 min
[2017-03-31] MEDS: HYDROmorphone HCL CARPU-JECT 1 MG/1 ML DISP.SYRIN IVPUSH PRN ×6 (14:45→15:30)
[2017-03-31] MEDS ORDERED: ONDANSETRON 4 MG/2 ML VIAL IVPUSH PRN ×2 (14:47→16:14)
--- NOTE | 2017-03-31 14:55 | OP ---
Operative Note - Note: Operative Date: 03/31/17 Pre-Operative Diagnosis: Left foot gangrene Operation: Left below knee amputation Findings: left foot Post-Operative Diagnosis: Same as Pre-op Surgeon: Faizan Villa Anesthesia: Spinal Estimated Blood Loss (mls): 150 Operative Report Dictated: Yes
[2017-03-31] MEDS ORDERED: morphine CARPU-JECT 4 MG/1 ML DISP.SYRIN IVPUSH PRN (14:58)
[2017-03-31] MEDS ORDERED: SODIUM CHLORIDE 1,000 ML IV SCH ×2 (15:00→16:14)
[2017-03-31] MEDS ORDERED: ACETAMINOPHEN 1000 MG/100 ML VIAL (NON FORMULARY) IVPB PRN (15:00)
[2017-03-31] MEDS ORDERED: HYDROmorphone HCL CARPU-JECT 2 MG/1 ML DISP.SYRIN ONE ×2 (15:05→20:29)
[2017-03-31] MEDS ORDERED: ACETAMINOPHEN 1000 MG/100 ML VIAL (NON FORMULARY) IVPB ONE (15:45)
--- NOTE | 2017-03-31 15:54 | PN ---
Progress Note (short form) - Note Progress Note: Renal follow up for ESRD on HD Pt seen and examined in the dialysis unit earlier today s/p prbc and plt transfusion with HD BP stable throughout treatment UF is 2kg for OR today Vital Signs Temperature 98.5 F 03/31/17 08:00 Pulse Rate 82 03/31/17 11:30 Respiratory Rate 18 03/31/17 11:30 Blood Pressure 134/62 03/31/17 11:30 O2 Sat by Pulse Oximetry (%) 95 03/31/17 09:00 Intake & Output 03/28/17 03/29/17 03/30/17 03/31/17 23:59 23:59 23:59 23:59 Intake Total 637 998 320 400 Output Total 0 0 0 350 Balance 637 998 320 50 Weight 61.28 kg 62.596 kg 62.397 kg 62.737 kg distress from pain RRR CTA soft NT/ND Sacral dressing in place No LE kumar foot in dressing CBC, BMP 03/31/17 07:10 03/31/17 07:10 Current Medications Acetaminophen (Ofirmev Injection -) 1,000 mg IVPB Q6H PRN PRN Reason: FEVER OR PAIN Budesonide/Formoterol Fumarate (Symbicort 80/4.5mcg -) 2 puff IH BID [facility] Last Admin: 03/31/17 10:42 Dose: Not Given Carvedilol (Coreg -) 3.125 mg PO BID [facility] Last Admin: 03/31/17 10:41 Dose: Not Given Chlorhexidine Gluconate (Hibiclens For Decolonization -) 1 applic TP [facility] Collagenase (Santyl -) 1 applic TP DAILY [facility] Last Admin: 03/31/17 10:42 Dose: Not Given Diphenhydramine HCl (Benadryl -) 25 mg PO Q6H PRN PRN Reason: FOR ITCHING Last Admin: 03/31/17 01:32 Dose: 25 mg Docusate Sodium (Colace -) 300 mg PO [facility] Last Admin: 03/30/17 22:20 Dose: 300 mg Fentanyl (Sublimaze Injection -) 50 mcg IVPUSH [id number] PRN PRN Reason: PAIN Hydromorphone HCl (Dilaudid Injection -) 0.5 mg IVPUSH [id number] PRN PRN Reason: PAIN Piperacillin/Tazobactam/Dextrose (Zosyn 2.25gm Ivpb (Premix)) 50 mls @ 100 mls/ hr IVPB Q8H-IV [facility] PRN Reason: Protocol Last Admin: 03/31/17 10:42 Dose: Not Given Sodium Chloride (Normal Saline -) 1,000 mls @ 42 mls/hr IV ASDIR [facility] Midodrine (Proamatine -) 10 mg PO TID-MID [facility] Last Admin: 03/31/17 10:41 Dose: Not Given Miscellaneous (Duragesic Patch Waste) 1 each [facility] PRN PRN PRN Reason: PAIN Last Admin: 03/29/17 17:45 Dose: 1 each Morphine Sulfate (Morphine Injection -) 4 mg IVPUSH Q4H PRN PRN Reason: PAIN Mupirocin (Bactroban Ointment (For Decolonization) -) 1 applic NS BID [facility] Stop: 04/05/17 21:59 Ondansetron HCl (Zofran Injection) 4 mg IVPUSH Q6H PRN PRN Reason: NAUSEA AND/OR VOMITING Ranitidine HCl (Zantac Oral Solution -) 150 mg PO DAILY [facility] Last Admin: 03/31/17 10:42 Dose: Not Given Rosuvastatin Calcium (Crestor -) 5 mg PO HS [facility] Last Admin: 03/30/17 22:20 Dose: 5 mg Sucralfate (Carafate Oral Suspension -) 0.5 gm PO BID [facility] Last Admin: 03/31/17 10:41 Dose: Not Given 77 year old gentleman with PMhx of ESRD on HD (TTS), Hypertension, DVT, PVD s/p right AKA and left toe amputation who presented to the ED with complaints of pain in his left foot and admitted fro soft tissue infection of the foot with concern for worsening ischemic disease. #ESRD on HD tolerated HD well today continue 3x weekly HD once stable for d/c will need outpatient HD unit placement #Wound/Ischemia of left LE for ampuation today contine Vanco with HD #Acute on Chronic Anemia likely due to infection but need to r/o blood loss IVANIA with HD s/p prbc transfusion today #Sacral stage 1 decubitis continue supportive care fentayl patch Thank you Raghu Boogie DO Problem List - Problems (1) Critical lower limb ischemia Code(s): I99.8 - OTHER DISORDER OF CIRCULATORY SYSTEM (2) Open wnd foot-complicated Code(s): S91.309A - UNSPECIFIED OPEN WOUND, UNSPECIFIED FOOT, INITIAL ENCOUNTER (3) HTN (hypertension) Code(s): I10 - ESSENTIAL (PRIMARY) HYPERTENSION Qualifiers: Hypertension type: essential hypertension Qualified Code(s): I10 - Essential (primary) hypertension (4) ESRD (end stage renal disease) Code(s): N18.6 - END STAGE RENAL DISEASE (5) Anemia Code(s): D64.9 - ANEMIA, UNSPECIFIED
[2017-03-31] MEDS ORDERED: diphenhydrAMINE HCL 25 MG CAPSULE (FP) PO PRN (16:14)
[2017-03-31] MEDS ORDERED: FENTANYL PATCH WASTE MC PRN (16:14)
--- NOTE | 2017-03-31 16:44 | PN ---
Physical Exam: SUBJECTIVE: Patient seen and examined in dialysis. Family at the bedside. OBJECTIVE: Patient seen in dialysis, family in attendance He is receiving Vanco 500mg, Platelets and blood transfusion prior left BKA Vital Signs Period Temp Pulse Resp BP Sys/Coleman Pulse Ox Last 24 Hr 97.5 F-98.5 F 60-85 18-20 95-134/24-97 93-95 GENERAL: Awake, alert, and fully oriented, mauritanian speaking HEAD: Normal with no signs of trauma. EYES: Pupils equal, round and reactive to light, extraocular movements intact, sclera anicteric, conjunctiva clear. No lid lag. EARS, NOSE, THROAT: Ears normal, nares patent, oropharynx clear without exudates. Moist mucous membranes. NECK: Normal range of motion, supple without lymphadenopathy, JVD, or masses. LUNGS: Breath sounds diminished bilaterall, no wheezing, +fine crackles on right mid lobe, oxygen stable on room air HEART: irregular heart rate, hx of afib ABDOMEN: Soft, nontender, not distended, normoactive bowel sounds, no guarding, no rebound, no masses. No hepatomegaly or splenomegaly. UPPER EXTREMITIES: AV fistula RUE, thrill/bruit present. AV fistula LUE not working LOWER EXTREMITIES: + 3 left lower ext pitting peripheral edema. Right AKA, Left foot with gangrenous toes, gangrene spreading to anterior aspect of foot, discolored foot NEUROLOGICAL: Normal speech. PSYCHIATRIC: restless SKIN: Sacral stage II, present on admission Laboratory Results - last 24 hr 03/27/17 03/30/17 03/31/17 17:15 13:40 06:00 WBC RBC Hgb Hct MCV MCH MCHC RDW Plt Count MPV Neutrophils % Lymphocytes % Monocytes % Eosinophils % Basophils % PT with INR INR Sodium Potassium Chloride Carbon Dioxide Anion Gap BUN Creatinine Creat Clearance w eGFR Random Glucose Calcium Phosphorus Total Bilirubin AST ALT Alkaline Phosphatase Total Protein Albumin Random Vancomycin Blood Type O POSITIVE O POSITIVE Antibody Screen Negative Negative Crossmatch See Detail See Detail See Detail 03/31/17 03/31/17 03/31/17 07:10 07:10 07:10 WBC 5.3 RBC 2.87 L Hgb 8.2 L Hct 25.3 L MCV 88.3 MCH 28.6 MCHC 32.3 RDW 17.8 H Plt Count 63 L MPV 7.7 Neutrophils % 76.1 Lymphocytes % 10.5 D Monocytes % 10.2 Eosinophils % 1.8 D Basophils % 1.4 PT with INR 15.10 H INR 1.34 H Sodium 143 Potassium 3.5 Chloride 105 Carbon Dioxide 27 Anion Gap 11 BUN 32 H Creatinine 5.9 H Creat Clearance w eGFR 9.37 Random Glucose 73 L Calcium 7.4 L Phosphorus 2.5 D Total Bilirubin 0.6 D AST 9 L D ALT < 6 L Alkaline Phosphatase 68 Total Protein 4.2 L Albumin 1.8 L Random Vancomycin Blood Type Antibody Screen Crossmatch 03/31/17 08:50 WBC RBC Hgb Hct MCV MCH MCHC RDW Plt Count MPV Neutrophils % Lymphocytes % Monocytes % Eosinophils % Basophils % PT with INR INR Sodium Potassium Chloride Carbon Dioxide Anion Gap BUN Creatinine Creat Clearance w eGFR Random Glucose Calcium Phosphorus Total Bilirubin AST ALT Alkaline Phosphatase Total Protein Albumin Random Vancomycin 17.476 Blood Type Antibody Screen Crossmatch Active Medications Generic Name Dose Route Start Last Admin Trade Name Freq PRN Reason Stop Dose Admin Acetaminophen 1,000 mg 03/31/17 15:00 Ofirmev Injection - IVPB Q6H PRN FEVER OR PAIN Budesonide/Formoterol Fumarate 2 puff 03/31/17 22:00 Symbicort 80/4.5mcg - IH BID [facility] Carvedilol 3.125 mg 03/31/17 22:00 Coreg - PO BID [facility] Chlorhexidine Gluconate 1 applic 03/31/17 22:00 Hibiclens For Decolonization - TP HS [facility] Collagenase 1 applic 04/01/17 10:00 Santyl - TP DAILY [facility] Diphenhydramine HCl 25 mg 03/31/17 16:14 Benadryl - PO Q6H PRN FOR ITCHING Docusate Sodium 300 mg 03/31/17 22:00 Colace - PO HS [facility] Epoetin Nash 20,000 units 03/31/17 16:14 Epogen - IVPUSH 03/31/17 16:15 ONCE ONE Fentanyl 50 mcg 03/31/17 16:14 Sublimaze Injection - IVPUSH [id number] PRN PAIN Hydromorphone HCl 0.5 mg 03/31/17 15:00 Dilaudid Injection - IVPUSH [id number] PRN PAIN Sodium Chloride 1,000 mls @ 42 mls/hr 03/31/17 16:14 Normal Saline - IV ASDIR [facility] Piperacillin/Tazobactam/Dextrose 50 mls @ 100 mls/hr 03/31/17 18:00 Zosyn 2.25gm Ivpb (Premix) IVPB Q8H-IV [facility] Protocol Lorazepam 0.5 mg 03/31/17 16:14 Ativan Injection - IVPUSH 03/31/17 16:15 ONCE ONE Midodrine 10 mg 03/31/17 18:00 Proamatine - PO TID-MID [facility] Miscellaneous 1 each 03/31/17 16:14 Duragesic Patch Waste [facility] PRN PRN PAIN Morphine Sulfate 4 mg 03/31/17 14:58 Morphine Injection - IVPUSH Q4H PRN PAIN Mupirocin 1 applic 03/31/17 22:00 Bactroban Ointment (For Decolonization) - NS 04/05/17 21:59 BID [facility] Ondansetron HCl 4 mg 03/31/17 16:14 Zofran Injection IVPUSH Q6H PRN NAUSEA AND/OR VOMITING Ranitidine HCl 150 mg 04/01/17 10:00 Zantac Oral Solution - PO DAILY [facility] Rosuvastatin Calcium 5 mg 03/31/17 22:00 Crestor - PO HS [facility] Sucralfate 0.5 gm 03/31/17 22:00 Carafate Oral Suspension - PO BID [facility] ASSESSMENT/PLAN: Patient is a 77 year old male with a significant past medical history of ESRD HD (T,Th,Sa), atrial fib, hypertension, DVT, right AKA, s/p left 2nd digit amputation lower extremity. He presented to the ED on 03/14/2017 for critical ischemia of left lower extremity. Patient is Vietnamese speaking only and family reports having increased swelling to his left lower extremity. Pt comes with right AKA and a left middle toe amputation that was performed 3 weeks ago in [facility], where pt has been living for the past several years. Patient has medical records from [facility] in his file. On admission there is an infection of the left foot with gangrene of 2nd toe and +3 edema of the entire lower leg, and a lateral small circular ulceration. Pt comes with documentation from [facility] reflecting that he had patent DP and PT vessels in September of this year. Previous arterial study of left extremity reveals permeable arterial flow throughout extending from femoral to posterior tibial pulse. Imagin03/14/2017: CT/Abdomen CTA AOR & RLE Runoff: Extensive severe diffuse aortoiliac , femoro-popliteal and intrapopliteal, occluded left SFA and mucus occlusion of flow in a severely diseased the renal artery demonstrates at lease 70-90% stenosis. Occluded left ENMANUEL and two vessel runoff provided by [employer] and PA however degree of disease and stenosis cannot be discerned due to calcification and hardening artifacts. enlarged prostate. Small right sided pleural effusion with severe right lung base atelectic changes vs pnemonic infiltrates. 03/14/2017: US/Duplex arterial legs, limited ultrasound: Extensive artheroscleoric disease with occlusion of the SFA. There is weak, monosphasic flow present within the popliteal and posterior tibial arteries. Abdominal CTA 03/27/2017 (1) infrarenal abdominal aortic aneurysm measuring 4.6cm, similar to CTA seen on imaging 03/14/17, no dissection seen. (2) Bilateral ectatic common iliac arteries measuring up to 1.9 cm with severe calcific alherosclerosis. (3) severe high grade ostial stenosis of bilateral renal arteries with near complete occlusion. (4) significant calcific altherosclerosis at the ostia of the celiac trunk and SMA likely resulting in less than 50% stenosis (5) Calcification of the aortic valve, prominent left coronary cusp, (6) incompletely imaged bilateral pleural effusions (7) cirrhotic configuration of the liver and evidence of portal hypertension with spenomegaly. (8) apparent wall thickent of nearl the entire colon (9) marked enlargement of the prostate gland. Vascular/ID: Sepsis secondary to ischemic Left foot, for left BKA today S/p left lower extremity angiogram/angioplasty and stent placement on 03/16 On Vanco and Zosyn as per ID, renally dosed - Vanco with dialysis Left bka planned for today Hematology: Coagulopathy (prolonged PTT/PT), improving Thrombocytopenia @ 63, received 1 unit of platelets HIT negative PTT mixed studies pending with prolonged PTT and risk of falls (had fallen during admission), will defer AC at this time Thrombocytopenia, likely secondary to sepsis 1 unit of platelets today Neuro: Acute Metabolic Encephalopathy likely secondary to septic left foot Left BKA today Renal: ESRD, HD (on TThS) via right upper arm fistula Dialysis tomorrow, unable to tolerate dialysis yesterday due to hypotension and AVF access Cardiology: Subtherapeutic INR for Atrial Fibrillation, chronic Coumadin on hold, heme studies pending + stool for occult blood Hypertension, chronic but now with hypotension, parameters added to BP meds Cardiology following Hematology: Anemia, likely chronic Rule out blood loss Blood with dialysis today will continue IVANIA with HD GI work up in process F.E.N. Fluids: 1.2 liter fluid restriction, tolerating PO Electrolytes: monitor Nutrition: renal diet Prophylaxis: GI: deferred DVT: subtherapeutic INR, hold coumadin, fall risk Disposition: Requires inpatient hospitalization. Full code. Visit type - Emergency Visit Emergency Visit: Yes ED Registration Date: 03/14/17 Care time: The patient presented to the Emergency Department on the above date and was hospitalized for further evaluation of their emergent condition. - New Patient This patient is new to me today: No - Critical Care Critical Care patient: No - Discharge Referral Referred to [facility] Med [facility] No
--- NOTE | 2017-03-31 17:16 | CONSULT ---
Consultation: REQUESTING PROVIDER: CONSULT REQUEST: PULM/CC We have been asked to medically evaluate this patient for ICU admission. HISTORY OF PRESENT ILLNESS: Pt groaning in pain, unable to give adequate hx. Unaccompanied by family members at bedside. Hx as per chart. 77 y/o M with significant hx of ESRD HD (T,Th,S), HTN, DVT, 3 months s/p R AKA, s/p L 2nd digit amputation of lower extremity, who presented to ED in February for gradual worsening of L 2nd/3rd digit interspace pain x 6 weeks. Pt reported LLE edema during this time. Denied fever, chills, cough, hemoptysis, SOB, CP, N/ V/D. Pt was admitted to med-surg initially for evluation of ischemia and L foot wounds. While on the floor, pt was found to have L SFA occlusion and gangrene, and later underwent SFA angioplasty and stent placement on 03/17/17. He also had L BKA d/t gangrene, which was done today, 03/31/17. Pt transferred to ICU for continued management. REVIEW OF SYSTEMS: CONSTITUTIONAL: Absent: fever, chills, diaphoresis, generalized weakness, malaise, loss of appetite, weight change HEENT: Absent: rhinorrhea, nasal congestion, throat pain, throat swelling, difficulty swallowing, mouth swelling, ear pain, eye pain, visual changes CARDIOVASCULAR: Absent: chest pain, syncope, palpitations, irregular heart rate, lightheadedness , peripheral edema RESPIRATORY: Absent: cough, shortness of breath, dyspnea with exertion, orthopnea, wheezing, stridor, hemoptysis GASTROINTESTINAL: Absent: abdominal pain, abdominal distension, nausea, vomiting, diarrhea, constipation, melena, hematochezia GENITOURINARY: Absent: dysuria, frequency, urgency, hesitancy, hematuria, flank pain, genital pain MUSCULOSKELETAL: Absent: myalgia, arthralgia, joint swelling, back pain, neck pain SKIN: Absent: rash, itching, pallor HEMATOLOGIC/IMMUNOLOGIC: Absent: easy bleeding, easy bruising, lymphadenopathy, frequent infections ENDOCRINE: Absent: unexplained weight gain, unexplained weight loss, heat intolerance, cold intolerance NEUROLOGIC: Absent: headache, focal weakness or paresthesias, dizziness, unsteady gait, seizure, mental status changes, bladder or bowel incontinence PSYCHIATRIC: Absent: anxiety, depression, suicidal or homicidal ideation, hallucinations. PHYSICAL EXAMINATION Vital Signs - 24 hr 03/30/17 03/30/17 03/30/17 17:44 21:00 22:00 Temperature 98.4 F 97.6 F Pulse Rate 85 74 Respiratory 18 18 Rate Blood Pressure 111/66 104/66 O2 Sat by Pulse 93 L Oximetry (%) 03/31/17 03/31/17 03/31/17 06:48 07:30 08:00 Temperature 97.5 F L 98.5 F Pulse Rate 70 74 62 Respiratory 18 20 18 Rate Blood Pressure 104/70 106/58 99/45 O2 Sat by Pulse Oximetry (%) 03/31/17 03/31/17 03/31/17 08:10 08:40 09:00 Temperature Pulse Rate 80 66 Respiratory 18 18 Rate Blood Pressure 120/24 118/31 O2 Sat by Pulse 95 Oximetry (%) 03/31/17 03/31/17 03/31/17 09:10 09:40 10:09 Temperature Pulse Rate 60 60 68 Respiratory 18 18 18 Rate Blood Pressure 110/35 102/32 95/40 O2 Sat by Pulse Oximetry (%) 03/31/17 03/31/17 03/31/17 10:40 11:10 11:30 Temperature Pulse Rate 60 80 82 Respiratory 18 18 18 Rate Blood Pressure 127/97 110/70 134/62 O2 Sat by Pulse Oximetry (%) GENERAL: Awake, unable to determine whether pt oriented, as intermittently moaning in pain. HEAD: Normal with no signs of trauma. EYES: Pupils equal, round and reactive to light, extraocular movements intact, sclera anicteric, conjunctiva clear. NECK: Normal range of motion, supple without lymphadenopathy or JVD. LUNGS: Breath sounds equal, clear to auscultation bilaterally. No wheezes, and no crackles. HEART: Regular rate and rhythm, normal S1 and S2 without murmur, rub or gallop. ABDOMEN: Soft, nontender, not distended, normoactive bowel sounds, no guarding, no rebound LOWER EXTREMITIES: b/l BKA, ecchymotic base of R knee, wrapped L knee NEUROLOGICAL: unable to assess, as pt unable to follow commands Laboratory Results - last 24 hr 03/27/17 03/30/17 03/31/17 17:15 13:40 06:00 WBC RBC Hgb Hct MCV MCH MCHC RDW Plt Count MPV Neutrophils % Lymphocytes % Monocytes % Eosinophils % Basophils % PT with INR INR Sodium Potassium Chloride Carbon Dioxide Anion Gap BUN Creatinine Creat Clearance w eGFR Random Glucose Calcium Phosphorus Total Bilirubin AST ALT Alkaline Phosphatase Total Protein Albumin Random Vancomycin Blood Type O POSITIVE O POSITIVE Antibody Screen Negative Negative Crossmatch See Detail See Detail See Detail 03/31/17 03/31/17 03/31/17 07:10 07:10 07:10 WBC 5.3 RBC 2.87 L Hgb 8.2 L Hct 25.3 L MCV 88.3 MCH 28.6 MCHC 32.3 RDW 17.8 H Plt Count 63 L MPV 7.7 Neutrophils % 76.1 Lymphocytes % 10.5 D Monocytes % 10.2 Eosinophils % 1.8 D Basophils % 1.4 PT with INR 15.10 H INR 1.34 H Sodium 143 Potassium 3.5 Chloride 105 Carbon Dioxide 27 Anion Gap 11 BUN 32 H Creatinine 5.9 H Creat Clearance w eGFR 9.37 Random Glucose 73 L Calcium 7.4 L Phosphorus 2.5 D Total Bilirubin 0.6 D AST 9 L D ALT < 6 L Alkaline Phosphatase 68 Total Protein 4.2 L Albumin 1.8 L Random Vancomycin Blood Type Antibody Screen Crossmatch 03/31/17 08:50 WBC RBC Hgb Hct MCV MCH MCHC RDW Plt Count MPV Neutrophils % Lymphocytes % Monocytes % Eosinophils % Basophils % PT with INR INR Sodium Potassium Chloride Carbon Dioxide Anion Gap BUN Creatinine Creat Clearance w eGFR Random Glucose Calcium Phosphorus Total Bilirubin AST ALT Alkaline Phosphatase Total Protein Albumin Random Vancomycin 17.476 Blood Type Antibody Screen Crossmatch Active Medications Generic Name Dose Route Start Last Admin Trade Name Rhettq PRN Reason Stop Dose Admin Acetaminophen 1,000 mg 03/31/17 15:00 Ofirmev Injection - IVPB Q6H PRN FEVER OR PAIN Budesonide/Formoterol Fumarate 2 puff 03/31/17 22:00 Symbicort 80/4.5mcg - IH BID [facility] Carvedilol 3.125 mg 03/31/17 22:00 Coreg - PO BID [facility] Chlorhexidine Gluconate 1 applic 03/31/17 22:00 Hibiclens For Decolonization - TP HS [facility] Collagenase 1 applic 04/01/17 10:00 Santyl - TP DAILY [facility] Diphenhydramine HCl 25 mg 03/31/17 16:14 Benadryl - PO Q6H PRN FOR ITCHING Docusate Sodium 300 mg 03/31/17 22:00 Colace - PO HS [facility] Epoetin Nash 20,000 units 03/31/17 16:14 Epogen - IVPUSH 03/31/17 16:15 ONCE ONE Fentanyl 50 mcg 03/31/17 16:14 Sublimaze Injection - IVPUSH [id number] PRN PAIN Hydromorphone HCl 0.5 mg 03/31/17 15:00 Dilaudid Injection - IVPUSH [id number] PRN PAIN Sodium Chloride 1,000 mls @ 42 mls/hr 03/31/17 16:14 Normal Saline - IV ASDIR [facility] Piperacillin/Tazobactam/Dextrose 50 mls @ 100 mls/hr 03/31/17 18:00 Zosyn 2.25gm Ivpb (Premix) IVPB Q8H-IV [facility] Protocol Lorazepam 0.5 mg 03/31/17 16:14 Ativan Injection - IVPUSH 03/31/17 16:15 ONCE ONE Midodrine 10 mg 03/31/17 18:00 Proamatine - PO TID-MID [facility] Miscellaneous 1 each 03/31/17 16:14 Duragesic Patch Waste MC PRN PRN PAIN Morphine Sulfate 4 mg 03/31/17 14:58 Morphine Injection - IVPUSH Q4H PRN PAIN Mupirocin 1 applic 03/31/17 22:00 Bactroban Ointment (For Decolonization) - NS 04/05/17 21:59 BID [facility] Ondansetron HCl 4 mg 03/31/17 16:14 Zofran Injection IVPUSH Q6H PRN NAUSEA AND/OR VOMITING Ranitidine HCl 150 mg 04/01/17 10:00 Zantac Oral Solution - PO DAILY [facility] Rosuvastatin Calcium 5 mg 03/31/17 22:00 Crestor - PO HS [facility] Sucralfate 0.5 gm 03/31/17 22:00 Carafate Oral Suspension - PO BID [facility] ASSESSMENT/PLAN: 77 y/o M with significant hx of ESRD HD (T,Th,S), HTN, DVT, 3 months s/p R AKA, s/p L 2nd digit amputation of lower extremity, who presented to ED in February for gradual worsening of L 2nd/3rd digit interspace pain x 6 weeks. Pt reported LLE edema during this time. Denied fever, chills, cough, hemoptysis, SOB, CP, N/ V/D. Pt was admitted to med-surg initially for evluation of ischemia and L foot wounds. While on the floor, pt was found to have L SFA occlusion and gangrene, and later underwent SFA angioplasty and stent placement on 03/17/17. He also had L BKA d/t gangrene, which was done today, 03/31/17. Pt transferred to ICU for continued management. #VASCULAR -sepsis 2/2 to ischemic L foot: pt afebrile, without leukocytosis, stable BP -s/p LLE angiogram/angioplasty and stent placement, done on 03/17/17 -s/p L BKA 2/2 gangrene, done today, 03/31/17 -Continue vanc and zosyn as per ID, renally dosed - vanc with dialysis #HEME -Coagulopathy (prolonged PTT/PT)-- improving -Thrombocytopenia 2/2 sepsis from ischemic foot, received 1 unit of platelets -HIT negative -A/C deferred at this time d/t prolonged PTT and fall risk -Will continue to follow CBC, as H&H low - however no current signs of active bleed #NEURO -unable to decipher pt's mental status d/t pain 2/2 s/p L BKA -will speak to family to determine baseline #RENAL -ESRD, HD (on T,,S) via RUE fistula -Cr trending up, most recent: 5.9 2/2 worsening ESRD- continue dialysis -last session today, 03/31/17 #CARDIO -Subtherapeutic INR for Atrial Fibrillation, chronic -Coumadin currently held, pt fall risk, elevated PTT #F/E/N Renal diet Will follow electrolytes #PPX DVT: subtherapeutic INR, coumadin held, fall risk #DISPO Continued ICU management Dispo: We will continue to follow the patient. Thank you for this consultative opportunity. Visit type - Emergency Visit Emergency Visit: No - New Patient This patient is new to me today: Yes Date on this admission: 03/31/17 - Critical Care Critical Care patient: Yes Total Critical Care Time (in minutes): 42 Critical Care Statement: The care of this patient involved high complexity decision making to prevent further life threatening deterioration of the patient 's condition and/or to evaluate & treat vital organ system(s) failure or risk of failure.
[2017-03-31] MEDS ORDERED: morphine SULFATE 4 MG/ML VIAL ONE (18:04)
[2017-03-31] MEDS: PIPERACILLIN/TAZOB 2.25 GM 2.25 GM/50 ML BAG IVPB SCH (19:00)
--- NOTE | 2017-03-31 20:55 | CONSULT ---
Consult - text type - Consultation Consultation Note: PULM/CCM Pt seen and examined in ICU CC: POD 0 after L BKA HPI:Unable to obtain hx from pt, chart reviewed. Briefly Mr Patel is a 77 y/o M with PMHX significant for ESRD HD (T,Th,S), HTN, DVT, vasculopathy s/p R AKA ,been in house since end of February initially for eval of L 2nd/3rd digit interspace pain x 6 weeks. During this admission was found to have L SFA occlusion and gangrene, underwent SFA angioplasty and stent placement on 03/17/17. Today had L BKA for progressive dry gangrene. Operation was uneventful however pt transferred to ICU for continued management for overnight observation. In ICU pt is awake, hemodynamically stable, pain moderately controlled, wound CDI. Past Medical History Cardio/Vascular Deep Vein Thrombosis (PVD),HTN,Other Renal/ Renal Failure,Hemodialysis Past Surgical History Past Surgical History Amputations, SFA angioplasty/stenting Social History Smoking history Former smoker Have you smoked in the past 12 No months Hx Alcohol Use No Ambulatory Orders Alprazolam [Xanax] 0.25 mg PO HS 03/14/17 Cilostazol [Pletal -] 100 mg PO BID 03/14/17 Esomeprazole Magnesium 40 mg PO DAILY 03/14/17 Fluticasone/Salmeterol [Advair 250-50 Diskus] 1 each IH BID 03/14/17 Glucosamine Sulfate Dipot Chlr [Glucosamine Sulfate] 1,000 mg PO DAILY 03/14/17 Meloxicam [Mobic] 15 mg PO DAILY 03/14/17 Rosuvastatin Calcium [Crestor] 20 mg PO DAILY 03/14/17 Sucralfate [Carafate] 5 ml PO BID 03/14/17 Tramadol HCl [Ultram] 50 mg PO Q4H PRN 03/14/17 Active Medications Acetaminophen (Ofirmev Injection -) 1,000 mg IVPB Q6H PRN PRN Reason: FEVER OR PAIN Budesonide/Formoterol Fumarate (Symbicort 80/4.5mcg -) 2 puff IH BID [facility] Carvedilol (Coreg -) 3.125 mg PO BID [facility] Chlorhexidine Gluconate (Hibiclens For Decolonization -) 1 applic TP HS [facility] Collagenase (Santyl -) 1 applic TP DAILY [facility] Diphenhydramine HCl (Benadryl -) 25 mg PO Q6H PRN PRN Reason: FOR ITCHING Docusate Sodium (Colace -) 300 mg PO HS [facility] Epoetin Nash (Epogen -) 20,000 units IVPUSH ONCE ONE Stop: 03/31/17 16:15 Last Admin: 03/31/17 17:47 Dose: Not Given Fentanyl (Sublimaze Injection -) 50 mcg IVPUSH Q5M PRN PRN Reason: PAIN Hydromorphone HCl (Dilaudid Injection -) 0.5 mg IVPUSH [id number] PRN PRN Reason: PAIN Last Admin: 03/31/17 15:30 Dose: 0.5 mg Hydromorphone HCl (Dilaudid Injection -) 1 mg IVPUSH Q4H PRN PRN Reason: PAIN Hydromorphone HCl (Dilaudid Injection -) 1 mg IVPUSH ONCE ONE Stop: 03/31/17 21:01 Sodium Chloride (Normal Saline -) 1,000 mls @ 42 mls/hr IV ASDIR [facility] Last Admin: 03/31/17 17:48 Dose: Not Given Piperacillin/Tazobactam/Dextrose (Zosyn 2.25gm Ivpb (Premix)) 2.25 gm in 50 mls @ 100 mls/hr IVPB Q8H-IV [facility] PRN Reason: Protocol Midodrine (Proamatine -) 10 mg PO TID-MID [facility] Last Admin: 03/31/17 18:18 Dose: Not Given Morphine Sulfate (Morphine Injection -) 4 mg IVPUSH Q4H PRN PRN Reason: PAIN Mupirocin (Bactroban Ointment (For Decolonization) -) 1 applic NS BID [facility] Stop: 04/05/17 21:59 Ondansetron HCl (Zofran Injection) 4 mg IVPUSH Q6H PRN PRN Reason: NAUSEA AND/OR VOMITING Ranitidine HCl (Zantac Oral Solution -) 150 mg PO DAILY [facility] Rosuvastatin Calcium (Crestor -) 5 mg PO HS [facility] Sucralfate (Carafate Oral Suspension -) 0.5 gm PO BID [facility] Vital Signs Temp 98.5 F 03/31/17 16:30 Pulse 87 03/31/17 18:58 Resp 25 H 03/31/17 18:58 BP 95/68 03/31/17 18:58 Pulse Ox 95 03/31/17 17:37 Intake & Output 03/30/17 03/31/17 03/31/17 23:59 11:59 23:59 Intake Total 320 500 Output Total 0 350 Balance 320 150 Weight 62.737 kg 64.864 kg Intake: IV 500 IVPB 100 Oral 220 0 Output: Urine 0 0 Void 0 Estimated Blood Loss 150 Other 200 Other: Voiding Method Incontinent Incontinent Incontinent # Unmeasured Voids Void 0 0 Bowel Movement Yes Yes No # Bowel Movements 1 2 0 Weight Measurement Method Built in Bedscale Built in Bedscale CBCD WBC 5.3 K/mm3 (4.0-10.0) 03/31/17 07:10 RBC 2.87 M/mm3 (4.00-5.60) L 03/31/17 07:10 Hgb 8.2 GM/dL (11.7-16.9) L 03/31/17 07:10 Hct 25.3 % (35.4-49) L 03/31/17 07:10 MCV 88.3 fl (80-96) 03/31/17 07:10 MCHC 32.3 g/dl (32.0-35.9) 03/31/17 07:10 RDW 17.8 % (11.9-15.9) H 03/31/17 07:10 Plt Count 63 K/MM3 (134-434) L 03/31/17 07:10 MPV 7.7 fl (7.5-11.1) 03/31/17 07:10 CMP Sodium 143 mmol/L (136-145) 03/31/17 07:10 Potassium 3.5 mmol/L (3.5-5.1) 03/31/17 07:10 Chloride 105 mmol/L (98-107) 03/31/17 07:10 Carbon Dioxide 27 mmol/L (21-32) 03/31/17 07:10 Anion Gap 11 (8-16) 03/31/17 07:10 BUN 32 mg/dL (7-18) H 03/31/17 07:10 Creatinine 5.9 mg/dL (0.7-1.3) H 03/31/17 07:10 Creat Clearance w eGFR 9.37 (>60) 03/31/17 07:10 Calcium 7.4 mg/dL (8.5-10.1) L 03/31/17 07:10 Total Bilirubin 0.6 mg/dL (0.2-1.0) D 03/31/17 07:10 AST 9 U/L (15-37) L D 03/31/17 07:10 ALT < 6 U/L (12-78) L 03/31/17 07:10 Alkaline Phosphatase 68 U/L (45-117) 03/31/17 07:10 Total Protein 4.2 g/dl (6.4-8.2) L 03/31/17 07:10 Albumin 1.8 g/dl (3.4-5.0) L 03/31/17 07:10 ROS: unable, pt not lucid enough for interview. PE: GENERAL: Eld man, rolling around in bed, C/o diffuse pain, mildly agitated HEAD: NCAT EYES: EOMI, sclera non-icteric NECK: Normal range of motion, supple without lymphadenopathy or JVD. LUNGS: Breath sounds equal, clear to auscultation bilaterally. No wheezes, and no crackles. HEART: Regular rate and rhythm, normal S1 and S2 without murmur, rub or gallop. ABDOMEN: Soft, nontender, not distended, normoactive bowel sounds, no guarding, no rebound LOWER EXTREMITIES: R AKA, new L BKA dressed with splint in place Upper Ext: L UE thrombosed AVF, R AVF with thrill NEUROLOGICAL: unable to assess, as pt unable to follow commands A/ 77 y/o man with ESRD and severe vasculopathy s/p L BKA today P/ -pain control---Dilaudid standing and PRN -HD as per renal -cont antihypertensives -OK for floor in am Tacho Ceballos ACNP [id number]
[2017-03-31] MEDS ORDERED: HYDROmorphone HCL CARPU-JECT 1 MG/1 ML DISP.SYRIN IVPUSH ONE (21:00)
[2017-03-31] MEDS ORDERED: DOCUSATE SODIUM 100 MG CAPSULE (FP) PO SCH (22:00)
[2017-03-31] MEDS ORDERED: CHLORHEXIDINE GLUCONATE 4% CLEANSER FOR DECOLONIZATION TP SCH ×2 (22:00)
[2017-03-31] MEDS ORDERED: ROSUVASTATIN CA 5 MG TABLET (FP) PO SCH (22:00)
[2017-03-31] MEDS ORDERED: MUPIROCIN 2% TOPICAL OINTMENT FOR DECOLONIZATION NS SCH (22:00)
[2017-03-31] MEDS ORDERED: PT OWN MED DRAWER 7, Y5N ONE (22:39)
[2017-03-31] MEDS: MUPIROCIN 2% TOPICAL OINTMENT FOR DECOLONIZATION NS SCH (22:47)
[2017-04-01] MEDS: PIPERACILLIN/TAZOB 2.25 GM 2.25 GM/50 ML BAG IVPB SCH ×3 (01:52→18:29)
[2017-04-01 06:52] LABS: BASOPHIL 0.5 % (0-2.0); EOSINOPHIL 0.1 % (0-4.5); MCH 29.1 pg (25.7-33.7); MCHC 32.3 g/dl (32.0-35.9); NEUTROPHILS 77.1 % (42.8-82.8); PLATELET COUNT 92 K/MM3 (134-434); RDW 19.4 % (11.9-15.9)
[2017-04-01] MEDS ORDERED: SODIUM CHLORIDE 250 ML IV STA (09:03)
[2017-04-01] MEDS ORDERED: PT OWN MED DRAWER 7, Y5N ONE ×3 (09:08→16:16)
[2017-04-01] MEDS: BUDESONIDE/FORMETEROL FUMARATE 80/4.5 mcg INHALER IH SCH ×2 (09:16→21:52)
[2017-04-01] MEDS: SUCRALFATE 1 GM/10 ML UNIT DOSE CUPS PO SCH ×2 (09:16→21:50)
[2017-04-01] MEDS: CARVEDILOL 3.125 MG TABLET (FP) PO SCH ×2 (09:23→21:51)
[2017-04-01] MEDS: MUPIROCIN 2% TOPICAL OINTMENT FOR DECOLONIZATION NS SCH ×2 (09:25→21:49)
[2017-04-01] MEDS: MIDODRINE HCL 5 MG TABLET PO SCH ×3 (09:54→18:31)
[2017-04-01] MEDS ORDERED: SODIUM CHLORIDE 1,000 ML IV SCH ×2 (10:00→17:31)
[2017-04-01] MEDS ORDERED: COLLAGENASE CLOSTRIDIUM HIST. 30 GRAMS TUBE TP SCH (10:00)
[2017-04-01] MEDS ORDERED: RANITIDINE HCL 150 MG/10 ML UNIT-DOSE PO SCH (10:00)
[2017-04-01] MEDS ORDERED: HYDROmorphone HCL CARPU-JECT 2 MG/1 ML DISP.SYRIN ONE ×3 (10:54→20:54)
[2017-04-01] MEDS: HYDROmorphone HCL CARPU-JECT 1 MG/1 ML DISP.SYRIN IVPUSH PRN ×3 (10:59→20:30)
[2017-04-01 11:09] LABS: ANION GAP 14 (8-16); BILIRUBIN,TOTAL 0.7 mg/dL (0.2-1.0); CALCIUM 8.2 mg/dL (8.5-10.1); CO2 27 mmol/L (21-32); CREATININE 4.7 mg/dL (0.7-1.3); GLUCOSE,RANDOM 83 mg/dL (74-106); SGOT/AST 13 U/L (15-37); SGPT/ALT 7 U/L (12-78); TOT PROT 4.6 g/dl (6.4-8.2)
[2017-04-01 11:10] LABS: ALK PHOS 76 U/L (45-117)
--- NOTE | 2017-04-01 12:04 | PN ---
Progress Note, Physician History of Present Illness: patient restless post op bka stable anxious - Current Medication List Current Medications: Active Medications Acetaminophen (Ofirmev Injection -) 1,000 mg IVPB Q6H PRN PRN Reason: FEVER OR PAIN Budesonide/Formoterol Fumarate (Symbicort 80/4.5mcg -) 2 puff IH BID [facility] Last Admin: 04/01/17 09:16 Dose: 2 puff Carvedilol (Coreg -) 3.125 mg PO BID [facility] Last Admin: 04/01/17 09:23 Dose: Not Given Chlorhexidine Gluconate (Hibiclens For Decolonization -) 1 applic TP HS [facility] Last Admin: 03/31/17 22:51 Dose: 1 applic Collagenase (Santyl -) 1 applic TP DAILY [facility] Last Admin: 04/01/17 09:25 Dose: Not Given Diphenhydramine HCl (Benadryl -) 25 mg PO Q6H PRN PRN Reason: FOR ITCHING Docusate Sodium (Colace -) 300 mg PO HS [facility] Last Admin: 03/31/17 22:49 Dose: 300 mg Epoetin Nash (Epogen -) 20,000 units IVPUSH ONCE ONE Stop: 03/31/17 16:15 Last Admin: 03/31/17 17:47 Dose: Not Given Fentanyl (Sublimaze Injection -) 50 mcg IVPUSH Q5M PRN PRN Reason: PAIN Hydromorphone HCl (Dilaudid Injection -) 0.5 mg IVPUSH [id number] PRN PRN Reason: PAIN Last Admin: 03/31/17 15:30 Dose: 0.5 mg Hydromorphone HCl (Dilaudid Injection -) 1 mg IVPUSH Q4H PRN PRN Reason: PAIN Last Admin: 04/01/17 10:59 Dose: 1 mg Piperacillin/Tazobactam/Dextrose (Zosyn 2.25gm Ivpb (Premix)) 2.25 gm in 50 mls @ 100 mls/hr IVPB Q8H-IV [facility] PRN Reason: Protocol Last Admin: 04/01/17 09:55 Dose: 100 mls/hr Sodium Chloride (Normal Saline -) 1,000 mls @ 50 mls/hr IV ASDIR [facility] Stop: 04/02/17 09:46 Last Admin: 04/01/17 10:00 Dose: 50 mls/hr Midodrine (Proamatine -) 10 mg PO TID-MID [facility] Last Admin: 04/01/17 09:54 Dose: Not Given Morphine Sulfate (Morphine Injection -) 4 mg IVPUSH Q4H PRN PRN Reason: PAIN Mupirocin (Bactroban Ointment (For Decolonization) -) 1 applic NS BID [facility] Stop: 04/05/17 21:59 Last Admin: 04/01/17 09:25 Dose: 1 applic Ondansetron HCl (Zofran Injection) 4 mg IVPUSH Q6H PRN PRN Reason: NAUSEA AND/OR VOMITING Ranitidine HCl (Zantac Oral Solution -) 150 mg PO DAILY [facility] Last Admin: 04/01/17 09:16 Dose: 150 mg Rosuvastatin Calcium (Crestor -) 5 mg PO HS [facility] Last Admin: 03/31/17 22:53 Dose: 5 mg Sucralfate (Carafate Oral Suspension -) 0.5 gm PO BID [facility] Last Admin: 04/01/17 09:16 Dose: 0.5 gm - Objective Vital Signs: Vital Signs Temperature 98 F 04/01/17 06:00 Pulse Rate 90 04/01/17 10:22 Respiratory Rate 14 04/01/17 08:00 Blood Pressure 94/51 04/01/17 08:00 O2 Sat by Pulse Oximetry (%) 92 L 04/01/17 10:22 Constitutional: Yes: Calm, Anxious Cardiovascular: Yes: Regular Rate and Rhythm Respiratory: Yes: Regular, CTA Bilaterally Gastrointestinal: Yes: Normal Bowel Sounds, Soft Musculoskeletal: Yes: Other Extremities: Yes: Other Wound/Incision: Yes: Dressing Dry and Intact, Other Neurological: Yes: Alert Psychiatric: Yes: Alert Labs: CBC, BMP 04/01/17 06:05 04/01/17 10:27 INR, PTT INR 1.34 (0.82-1.09) H 03/31/17 07:10 Fibrinogen 296.0 mg/dL (238-498) D 03/30/17 06:10 Assessment/Plan Problem List - Problems (1) Anemia Code(s): D64.9 - ANEMIA, UNSPECIFIED (2) Critical lower limb ischemia Code(s): I99.8 - OTHER DISORDER OF CIRCULATORY SYSTEM (3) ESRD (end stage renal disease) Code(s): N18.6 - END STAGE RENAL DISEASE (4) HTN (hypertension) Code(s): I10 - ESSENTIAL (PRIMARY) HYPERTENSION (5) Open wnd foot-complicated Code(s): S91.309A - UNSPECIFIED OPEN WOUND, UNSPECIFIED FOOT, INITIAL ENCOUNTER cardiomyopathy gangrene of the foot plan ct abx post op bka continue abx for now will see how patient does close monitoring rest a per primary cc time 40 min
--- NOTE | 2017-04-01 12:13 | PN ---
Teaching Attending Note Name of Resident: Lew Husain ATTENDING PHYSICIAN STATEMENT I saw and evaluated the patient. I reviewed the resident's note and discussed the case with the resident. I agree with the resident's findings and plan as documented. SUBJECTIVE: Patient seen and examined in the ICU. Awake but agitated. Asking for water. Hemodynamics stable overnight but marginal. Denies CP or SOB. Intake & Output 03/29/17 03/30/17 03/31/17 04/01/17 23:59 23:59 23:59 23:59 Intake Total 998 320 550 50 Output Total 0 0 350 0 Balance 998 320 200 50 Weight 138 lb 137 lb 9 oz 143 lb 143 lb 8 oz Last Vital Signs Temp Pulse Resp BP Pulse Ox 98 F 90 14 94/51 92 L 04/01/17 06:00 04/01/17 10:22 04/01/17 08:00 04/01/17 08:00 04/01/17 10:22 Active Medications Acetaminophen (Ofirmev Injection -) 1,000 mg IVPB Q6H PRN PRN Reason: FEVER OR PAIN Budesonide/Formoterol Fumarate (Symbicort 80/4.5mcg -) 2 puff IH BID [facility] Last Admin: 04/01/17 09:16 Dose: 2 puff Carvedilol (Coreg -) 3.125 mg PO BID [facility] Last Admin: 04/01/17 09:23 Dose: Not Given Chlorhexidine Gluconate (Hibiclens For Decolonization -) 1 applic TP HS [facility] Last Admin: 03/31/17 22:51 Dose: 1 applic Collagenase (Santyl -) 1 applic TP DAILY [facility] Last Admin: 04/01/17 09:25 Dose: Not Given Diphenhydramine HCl (Benadryl -) 25 mg PO Q6H PRN PRN Reason: FOR ITCHING Docusate Sodium (Colace -) 300 mg PO HS [facility] Last Admin: 03/31/17 22:49 Dose: 300 mg Epoetin Nash (Epogen -) 20,000 units IVPUSH ONCE ONE Stop: 03/31/17 16:15 Last Admin: 03/31/17 17:47 Dose: Not Given Fentanyl (Sublimaze Injection -) 50 mcg IVPUSH Q5M PRN PRN Reason: PAIN Hydromorphone HCl (Dilaudid Injection -) 0.5 mg IVPUSH [id number] PRN PRN Reason: PAIN Last Admin: 03/31/17 15:30 Dose: 0.5 mg Hydromorphone HCl (Dilaudid Injection -) 1 mg IVPUSH Q4H PRN PRN Reason: PAIN Last Admin: 04/01/17 10:59 Dose: 1 mg Piperacillin/Tazobactam/Dextrose (Zosyn 2.25gm Ivpb (Premix)) 2.25 gm in 50 mls @ 100 mls/hr IVPB Q8H-IV [facility] PRN Reason: Protocol Last Admin: 04/01/17 09:55 Dose: 100 mls/hr Sodium Chloride (Normal Saline -) 1,000 mls @ 50 mls/hr IV ASDIR [facility] Stop: 04/02/17 09:46 Last Admin: 04/01/17 10:00 Dose: 50 mls/hr Midodrine (Proamatine -) 10 mg PO TID-MID [facility] Last Admin: 04/01/17 09:54 Dose: Not Given Morphine Sulfate (Morphine Injection -) 4 mg IVPUSH Q4H PRN PRN Reason: PAIN Mupirocin (Bactroban Ointment (For Decolonization) -) 1 applic NS BID [facility] Stop: 04/05/17 21:59 Last Admin: 04/01/17 09:25 Dose: 1 applic Ondansetron HCl (Zofran Injection) 4 mg IVPUSH Q6H PRN PRN Reason: NAUSEA AND/OR VOMITING Ranitidine HCl (Zantac Oral Solution -) 150 mg PO DAILY [facility] Last Admin: 04/01/17 09:16 Dose: 150 mg Rosuvastatin Calcium (Crestor -) 5 mg PO HS [facility] Last Admin: 03/31/17 22:53 Dose: 5 mg Sucralfate (Carafate Oral Suspension -) 0.5 gm PO BID [facility] Last Admin: 04/01/17 09:16 Dose: 0.5 gm GENERAL: Awake, responsive, agitated, intermittently moaning in discomfort HEAD: Normal with no signs of trauma. EYES: sclera anicteric, conjunctiva clear. NECK: Normal range of motion, supple without lymphadenopathy or JVD. LUNGS: Breath sounds equal, clear to auscultation bilaterally. No wheezes, and no crackles. HEART: Regular rate and rhythm, normal S1 and S2 without murmur, rub or gallop. ABDOMEN: Soft, nontender, not distended, normoactive bowel sounds, no guarding, no rebound LOWER EXTREMITIES: b/l BKA, ecchymotic base of R knee, wrapped L knee NEUROLOGICAL: Agitated, non-focal Laboratory Results - last 24 hr 03/31/17 04/01/17 04/01/17 07:10 06:05 06:05 WBC 6.0 RBC 3.27 L Hgb 9.5 L D Hct 29.4 L D MCV 90.0 MCH 29.1 MCHC 32.3 RDW 19.4 H Plt Count 92 L D MPV 8.0 Neutrophils % 77.1 Lymphocytes % 8.0 D Monocytes % 14.3 H Eosinophils % 0.1 D Basophils % 0.5 Sodium Cancelled Potassium Cancelled Chloride Cancelled Carbon Dioxide Cancelled Anion Gap Cancelled BUN Cancelled Creatinine Cancelled Creat Clearance w eGFR Cancelled Random Glucose Cancelled Calcium Cancelled Phosphorus 2.5 D Total Bilirubin Cancelled AST Cancelled ALT Cancelled Alkaline Phosphatase Cancelled Total Protein Cancelled Albumin Cancelled 04/01/17 10:27 WBC RBC Hgb Hct MCV MCH MCHC RDW Plt Count MPV Neutrophils % Lymphocytes % Monocytes % Eosinophils % Basophils % Sodium 146 H Potassium 3.7 Chloride 105 Carbon Dioxide 27 Anion Gap 14 BUN 20 H D Creatinine 4.7 H D Creat Clearance w eGFR 12.18 Random Glucose 83 Calcium 8.2 L Phosphorus Total Bilirubin 0.7 AST 13 L D ALT 7 L Alkaline Phosphatase 76 Total Protein 4.6 L Albumin 2.0 L ASSESSMENT/PLAN: POD #1 Left BKA LLE Ischemia/gangrene ESRD HD (T,Th,S) DVT Right AKA Likely chronic hypotension Coagulopathy Thrombocytopenia HIT negative IVF Local wound care per surgery O2 as needed Pain control Incentive Spirometry if able VTE prophylaxis if OK with surgery HD per Renal Fall precautions Dr Braun Critical care time spent in reviewing chart, evaluating patient and formulating plan - 40 minutes.
--- NOTE | 2017-04-01 12:51 | PN ---
Progress Note (short form) - Note Progress Note: Renal follow up for ESRD on HD Pt seen and examined in the ICU awake and alert denies any pain somewhat agitated because he is in restraints s/p amputation yesterday and transferred to the ICU for monitoring after s/p dialysis yesterday morning Vital Signs Temperature 98 F 04/01/17 06:00 Pulse Rate 90 04/01/17 10:22 Respiratory Rate 14 04/01/17 08:00 Blood Pressure 94/51 04/01/17 08:00 O2 Sat by Pulse Oximetry (%) 92 L 04/01/17 10:22 Intake & Output 03/29/17 03/30/17 03/31/17 04/01/17 23:59 23:59 23:59 23:59 Intake Total 998 320 550 50 Output Total 0 0 350 0 Balance 998 320 200 50 Weight 62.596 kg 62.397 kg 64.864 kg 65.091 kg NAD awake and alert RRR, No M/R CTA (anterior exam) no LE edema CBC, BMP 04/01/17 06:05 04/01/17 10:27 Current Medications Acetaminophen (Ofirmev Injection -) 1,000 mg IVPB Q6H PRN PRN Reason: FEVER OR PAIN Budesonide/Formoterol Fumarate (Symbicort 80/4.5mcg -) 2 puff IH BID [facility] Last Admin: 04/01/17 09:16 Dose: 2 puff Carvedilol (Coreg -) 3.125 mg PO BID [facility] Last Admin: 04/01/17 09:23 Dose: Not Given Chlorhexidine Gluconate (Hibiclens For Decolonization -) 1 applic TP HS [facility] Last Admin: 03/31/17 22:51 Dose: 1 applic Collagenase (Santyl -) 1 applic TP DAILY [facility] Last Admin: 04/01/17 09:25 Dose: Not Given Diphenhydramine HCl (Benadryl -) 25 mg PO Q6H PRN PRN Reason: FOR ITCHING Docusate Sodium (Colace -) 300 mg PO HS [facility] Last Admin: 03/31/17 22:49 Dose: 300 mg Epoetin Nash (Epogen -) 20,000 units IVPUSH ONCE ONE Stop: 03/31/17 16:15 Last Admin: 03/31/17 17:47 Dose: Not Given Fentanyl (Sublimaze Injection -) 50 mcg IVPUSH Q5M PRN PRN Reason: PAIN Hydromorphone HCl (Dilaudid Injection -) 0.5 mg IVPUSH [id number] PRN PRN Reason: PAIN Last Admin: 03/31/17 15:30 Dose: 0.5 mg Hydromorphone HCl (Dilaudid Injection -) 1 mg IVPUSH Q4H PRN PRN Reason: PAIN Last Admin: 04/01/17 10:59 Dose: 1 mg Piperacillin/Tazobactam/Dextrose (Zosyn 2.25gm Ivpb (Premix)) 2.25 gm in 50 mls @ 100 mls/hr IVPB Q8H-IV [facility] PRN Reason: Protocol Last Admin: 04/01/17 09:55 Dose: 100 mls/hr Sodium Chloride (Normal Saline -) 1,000 mls @ 50 mls/hr IV ASDIR [facility] Stop: 04/02/17 09:46 Last Admin: 04/01/17 10:00 Dose: 50 mls/hr Midodrine (Proamatine -) 10 mg PO TID-MID [facility] Last Admin: 04/01/17 09:54 Dose: Not Given Morphine Sulfate (Morphine Injection -) 4 mg IVPUSH Q4H PRN PRN Reason: PAIN Mupirocin (Bactroban Ointment (For Decolonization) -) 1 applic NS BID [facility] Stop: 04/05/17 21:59 Last Admin: 04/01/17 09:25 Dose: 1 applic Ondansetron HCl (Zofran Injection) 4 mg IVPUSH Q6H PRN PRN Reason: NAUSEA AND/OR VOMITING Ranitidine HCl (Zantac Oral Solution -) 150 mg PO DAILY [facility] Last Admin: 04/01/17 09:16 Dose: 150 mg Rosuvastatin Calcium (Crestor -) 5 mg PO HS [facility] Last Admin: 03/31/17 22:53 Dose: 5 mg Sucralfate (Carafate Oral Suspension -) 0.5 gm PO BID [facility] Last Admin: 04/01/17 09:16 Dose: 0.5 gm 77 year old gentleman with PMhx of ESRD on HD (TTS), Hypertension, DVT, PVD s/p right AKA and left toe amputation who presented to the ED with complaints of pain in his left foot and admitted fro soft tissue infection of the foot with concern for worsening ischemic disease. #ESRD on HD s/p dialysis yesterday no acute indication for HD today next planned treatment is tomorrow #Wound/Ischemia of left LE s/p amputation wound care Vascular follow up pain control continue Abx as per ID reces Vanco level was 17 yesterday, got 500mg IV #Acute on Chronic Anemia likely due to infection but need to r/o blood loss Hgb stable s/p transfusion yesterday continue high dose IAVNIA with HD #Hypernatremia oral water intake as tolerated #Hypocalcemia Corrected Ca is 9.8 Check PTH Thank you Raghu Boogie DO Problem List - Problems (1) Critical lower limb ischemia Code(s): I99.8 - OTHER DISORDER OF CIRCULATORY SYSTEM (2) Open wnd foot-complicated Code(s): S91.309A - UNSPECIFIED OPEN WOUND, UNSPECIFIED FOOT, INITIAL ENCOUNTER (3) HTN (hypertension) Code(s): I10 - ESSENTIAL (PRIMARY) HYPERTENSION Qualifiers: Hypertension type: essential hypertension Qualified Code(s): I10 - Essential (primary) hypertension (4) ESRD (end stage renal disease) Code(s): N18.6 - END STAGE RENAL DISEASE (5) Anemia Code(s): D64.9 - ANEMIA, UNSPECIFIED
[2017-04-01] MEDS ORDERED: VANCOMYCIN 1,000 MG in DEXTROSE 5%-WATER - 250 ML IVPB ONE ×2 (12:57→17:31)
--- NOTE | 2017-04-01 14:47 | PN ---
Progress Note, Physician History of Present Illness: Agitated - Current Medication List Current Medications: Active Medications Acetaminophen (Ofirmev Injection -) 1,000 mg IVPB Q6H PRN PRN Reason: FEVER OR PAIN Budesonide/Formoterol Fumarate (Symbicort 80/4.5mcg -) 2 puff IH BID [facility] Last Admin: 04/01/17 09:16 Dose: 2 puff Carvedilol (Coreg -) 3.125 mg PO BID [facility] Last Admin: 04/01/17 09:23 Dose: Not Given Chlorhexidine Gluconate (Hibiclens For Decolonization -) 1 applic TP HS [facility] Last Admin: 03/31/17 22:51 Dose: 1 applic Collagenase (Santyl -) 1 applic TP DAILY [facility] Last Admin: 04/01/17 09:25 Dose: Not Given Diphenhydramine HCl (Benadryl -) 25 mg PO Q6H PRN PRN Reason: FOR ITCHING Docusate Sodium (Colace -) 300 mg PO HS [facility] Last Admin: 03/31/17 22:49 Dose: 300 mg Epoetin Nash (Epogen -) 20,000 units IVPUSH ONCE ONE Stop: 03/31/17 16:15 Last Admin: 03/31/17 17:47 Dose: Not Given Epoetin Nash (Epogen -) 20,000 units IVPUSH ONCE ONE Stop: 04/02/17 06:01 Fentanyl (Sublimaze Injection -) 50 mcg IVPUSH Q5M PRN PRN Reason: PAIN Hydromorphone HCl (Dilaudid Injection -) 0.5 mg IVPUSH [id number] PRN PRN Reason: PAIN Last Admin: 03/31/17 15:30 Dose: 0.5 mg Hydromorphone HCl (Dilaudid Injection -) 1 mg IVPUSH Q4H PRN PRN Reason: PAIN Last Admin: 04/01/17 10:59 Dose: 1 mg Piperacillin/Tazobactam/Dextrose (Zosyn 2.25gm Ivpb (Premix)) 2.25 gm in 50 mls @ 100 mls/hr IVPB Q8H-IV [facility] PRN Reason: Protocol Last Admin: 04/01/17 09:55 Dose: 100 mls/hr Sodium Chloride (Normal Saline -) 1,000 mls @ 50 mls/hr IV ASDIR [facility] Stop: 04/02/17 09:46 Last Admin: 04/01/17 10:00 Dose: 50 mls/hr Vancomycin HCl 1,000 mg/ (Dextrose) 250 mls @ 250 mls/hr IVPB ONCE ONE PRN Reason: Protocol Stop: 04/01/17 13:56 Midodrine (Proamatine -) 10 mg PO TID-MID [facility] Last Admin: 04/01/17 09:54 Dose: Not Given Morphine Sulfate (Morphine Injection -) 4 mg IVPUSH Q4H PRN PRN Reason: PAIN Mupirocin (Bactroban Ointment (For Decolonization) -) 1 applic NS BID [facility] Stop: 04/05/17 21:59 Last Admin: 04/01/17 09:25 Dose: 1 applic Ondansetron HCl (Zofran Injection) 4 mg IVPUSH Q6H PRN PRN Reason: NAUSEA AND/OR VOMITING Ranitidine HCl (Zantac Oral Solution -) 150 mg PO DAILY [facility] Last Admin: 04/01/17 09:16 Dose: 150 mg Rosuvastatin Calcium (Crestor -) 5 mg PO HS [facility] Last Admin: 03/31/17 22:53 Dose: 5 mg Sucralfate (Carafate Oral Suspension -) 0.5 gm PO BID [facility] Last Admin: 04/01/17 09:16 Dose: 0.5 gm - Objective Vital Signs: Vital Signs Temperature 98 F 04/01/17 06:00 Pulse Rate 80 04/01/17 12:00 Respiratory Rate 15 04/01/17 12:00 Blood Pressure 105/58 04/01/17 12:00 O2 Sat by Pulse Oximetry (%) 92 L 04/01/17 10:22 Constitutional: Yes: No Distress, Calm, Thin Neck: Yes: Supple Cardiovascular: Yes: Pulse Irregular, Murmur (2/6 SM) Respiratory: Yes: Regular, Diminished Gastrointestinal: Yes: Normal Bowel Sounds, Soft Extremities: Yes: Amputation (Rt AKA, left BKA) Edema: No Labs: CBC, BMP 04/01/17 06:05 04/01/17 10:27 INR, PTT INR 1.34 (0.82-1.09) H 03/31/17 07:10 Fibrinogen 296.0 mg/dL (238-498) D 03/30/17 06:10 Problem List - Problems (1) Critical lower limb ischemia Code(s): I99.8 - OTHER DISORDER OF CIRCULATORY SYSTEM (2) HLD (hyperlipidemia) Code(s): E78.5 - HYPERLIPIDEMIA, UNSPECIFIED Qualifiers: Hyperlipidemia type: pure hypercholesterolemia Qualified Code(s): E78.00 - Pure hypercholesterolemia, unspecified (3) HTN (hypertension) Code(s): I10 - ESSENTIAL (PRIMARY) HYPERTENSION Qualifiers: Hypertension type: essential hypertension Qualified Code(s): I10 - Essential (primary) hypertension (4) ESRD (end stage renal disease) Code(s): N18.6 - END STAGE RENAL DISEASE (5) Atrial fibrillation Code(s): I48.91 - UNSPECIFIED ATRIAL FIBRILLATION Qualifiers: Atrial fibrillation type: persistent Qualified Code(s): I48.1 - Persistent atrial fibrillation (6) Amputated toe of left foot Code(s): Z89.422 - ACQUIRED ABSENCE OF OTHER LEFT TOE(S) (7) S/P AKA (above knee amputation) Code(s): Z89.619 - ACQUIRED ABSENCE OF UNSPECIFIED LEG ABOVE KNEE Qualifiers: Laterality: right Qualified Code(s): Z89.611 - Acquired absence of right leg above knee (8) Cardiomyopathy Code(s): I42.9 - CARDIOMYOPATHY, UNSPECIFIED Qualifiers: Cardiomyopathy type: unspecified Qualified Code(s): I42.9 - Cardiomyopathy , unspecified (9) Systolic dysfunction, left ventricle Code(s): I51.9 - HEART DISEASE, UNSPECIFIED (10) Anticoagulant long-term use Code(s): Z79.01 - DIRECTOR ASSET (CURRENT) USE OF ANTICOAGULANTS (11) Thrombocytopenia Code(s): D69.6 - THROMBOCYTOPENIA, UNSPECIFIED (12) Peripheral arterial disease Code(s): I73.9 - PERIPHERAL VASCULAR DISEASE, UNSPECIFIED Assessment/Plan Echocardiography reveals severely reduced LV systolic function, severe TR, moderate pulmonary HTN, mild AR, severely dilated LA and RA 1. PAD post right AKA and left toe amputation, occluded left SFA post angioplasty/stent, POD #1 left BKA 2. CAD angina pectoris 3. Dilated cardiomyopathy with chronic class I-II NYHA classification LV systolic failure, compensated/ euvolemic 4. Persistent atrial fibrillation [id number] score of 4 off of A/C 5. Severe TR with pulmonary HTN 6. HTN 7. ESRD on HD (T, TH, S) 8. History of DVT 9. Anemia 10. Thrombocytopenia PLAN: 1. Continue Coreg 3.125 bid, hemodynamics permitting 2. Continue Crestor 5 qhs 3. HD as per renal service 4. Resume coumadin once hemostasis assured
--- NOTE | 2017-04-01 15:56 | PN ---
Progress Note (short form) - Note Progress Note: Pt seen and examined. Seen and examined in the ICU. Pt s/p left LLE amputation . Underwent procedures Pt appears agitated and is moaning, he is in restraints no ROS obtained. O/E: Constitutional: Yes: agitated, moaning HENT: Yes: Atraumatic, Normocephalic Neck: Yes: Supple Cardiovascular: Yes: WNL Respiratory: Yes: Tachypnea Extremities: Yes: Other +cast in the LE Neurological: Yes: agitated Labs: CBC, BMP 04/01/17 06:05 04/01/17 10:27 Current Medications Generic Name Dose Route Start Last Admin Trade Name Freq PRN Reason Stop Dose Admin Acetaminophen 1,000 mg 03/31/17 15:00 Ofirmev Injection - IVPB Q6H PRN FEVER OR PAIN Budesonide/Formoterol Fumarate 2 puff 03/31/17 22:00 04/01/17 09:16 Symbicort 80/4.5mcg - IH 2 puff BID [facility] Administration Carvedilol 3.125 mg 03/31/17 22:00 04/01/17 09:23 Coreg - PO Not Given BID [facility] Chlorhexidine Gluconate 1 applic 03/31/17 22:00 03/31/17 22:51 Hibiclens For Decolonization - TP 1 applic HS [facility] Administration Collagenase 1 applic 04/01/17 10:00 04/01/17 09:25 Santyl - TP Not Given DAILY [facility] Diphenhydramine HCl 25 mg 03/31/17 16:14 Benadryl - PO Q6H PRN FOR ITCHING Docusate Sodium 300 mg 03/31/17 22:00 03/31/17 22:49 Colace - PO 300 mg HS [facility] Administration Epoetin Nash 20,000 units 03/31/17 16:14 03/31/17 17:47 Epogen - IVPUSH 03/31/17 16:15 Not Given ONCE ONE Epoetin Nash 20,000 units 04/02/17 06:00 Epogen - IVPUSH 04/02/17 06:01 ONCE ONE Fentanyl 50 mcg 03/31/17 18:22 Sublimaze Injection - IVPUSH Q5M PRN PAIN Hydromorphone HCl 0.5 mg 03/31/17 15:00 03/31/17 15:30 Dilaudid Injection - IVPUSH 0.5 mg [id number] PRN Administration PAIN Hydromorphone HCl 1 mg 03/31/17 20:27 04/01/17 10:59 Dilaudid Injection - IVPUSH 1 mg Q4H PRN Administration PAIN Piperacillin/Tazobactam/Dextrose 2.25 gm in 50 mls @ 100 mls/hr 03/31/17 18: 00 04/01/17 09:55 Zosyn 2.25gm Ivpb (Premix) IVPB 100 mls/hr Q8H-IV [facility] Administration Protocol Sodium Chloride 1,000 mls @ 50 mls/hr 04/01/17 10:00 04/01/17 10:00 Normal Saline - IV 04/02/17 09:46 50 mls/hr ASDIR [facility] Administration Vancomycin HCl 1,000 mg/ 250 mls @ 250 mls/hr 04/01/17 12:57 Dextrose IVPB 04/01/17 13:56 ONCE ONE Protocol Midodrine 10 mg 03/31/17 18:00 04/01/17 14:56 Proamatine - PO 10 mg TID-MID [facility] Administration Morphine Sulfate 4 mg 03/31/17 14:58 Morphine Injection - IVPUSH Q4H PRN PAIN Mupirocin 1 applic 03/31/17 22:00 04/01/17 09:25 Bactroban Ointment (For Decolonization) - NS 04/05/17 21:59 1 applic BID [facility] Administration Ondansetron HCl 4 mg 03/31/17 16:14 Zofran Injection IVPUSH Q6H PRN NAUSEA AND/OR VOMITING Ranitidine HCl 150 mg 04/01/17 10:00 04/01/17 09:16 Zantac Oral Solution - PO 150 mg DAILY [facility] Administration Rosuvastatin Calcium 5 mg 03/31/17 22:00 03/31/17 22:53 Crestor - PO 5 mg HS [facility] Administration Sucralfate 0.5 gm 03/31/17 22:00 04/01/17 09:16 Carafate Oral Suspension - PO 0.5 gm BID [facility] Administration Last Vital Signs Temp Pulse Resp BP Pulse Ox 98 F 80 15 105/58 92 L 04/01/17 06:00 04/01/17 12:00 04/01/17 12:00 04/01/17 12:00 04/01/17 10:22 Thrombocytopenia Anemia Coagulopathy Afib.off ac s/p LLE amputation. ?baseline poor ESRD will f/u on coagulation parameters might improve post procedure. will continue to monitor anemia: in the presence of ESRD, regular transfusion threshold, on IVANIA per renal protocol. Fall precautions rest per primary will follow
--- NOTE | 2017-04-01 16:45 | PN ---
Physical Exam: SUBJECTIVE: Patient seen and examined at the bedside. s/p left BKA on 03/31/2017. In the ICU post op. OBJECTIVE: In the ICU, awake and restless On restraints secondary to agitation Vital Signs Period Temp Pulse Resp BP Sys/Coleman Pulse Ox Last 24 Hr 97.6 F-98.4 F 64-90 12-25 89-119/44-68 92-100 GENERAL: Awake, alert, and fully oriented, mohawk speaking HEAD: Normal with no signs of trauma. EYES: Pupils equal, round and reactive to light, extraocular movements intact, sclera anicteric, conjunctiva clear. No lid lag. EARS, NOSE, THROAT: Ears normal, nares patent, oropharynx clear without exudates. Moist mucous membranes. NECK: Normal range of motion, supple without lymphadenopathy, JVD, or masses. LUNGS: Breath sounds diminished bilaterall, no wheezing, +fine crackles on right mid lobe, oxygen stable on room air HEART: irregular heart rate, hx of afib ABDOMEN: Soft, nontender, not distended, normoactive bowel sounds, no guarding, no rebound, no masses. No hepatomegaly or splenomegaly. UPPER EXTREMITIES: AV fistula RUE, thrill/bruit present. AV fistula LUE not working LOWER EXTREMITIES: history of Right AKA, Left BKA on 03/31/17 NEUROLOGICAL: Normal speech. PSYCHIATRIC: restless SKIN: Sacral stage II, present on admission Laboratory Results - last 24 hr 04/01/17 04/01/17 04/01/17 06:05 06:05 10:27 WBC 6.0 RBC 3.27 L Hgb 9.5 L D Hct 29.4 L D MCV 90.0 MCH 29.1 MCHC 32.3 RDW 19.4 H Plt Count 92 L D MPV 8.0 Neutrophils % 77.1 Lymphocytes % 8.0 D Monocytes % 14.3 H Eosinophils % 0.1 D Basophils % 0.5 Sodium Cancelled 146 H Potassium Cancelled 3.7 Chloride Cancelled 105 Carbon Dioxide Cancelled 27 Anion Gap Cancelled 14 BUN Cancelled 20 H D Creatinine Cancelled 4.7 H D Creat Clearance w eGFR Cancelled 12.18 Random Glucose Cancelled 83 Calcium Cancelled 8.2 L Total Bilirubin Cancelled 0.7 AST Cancelled 13 L D ALT Cancelled 7 L Alkaline Phosphatase Cancelled 76 Total Protein Cancelled 4.6 L Albumin Cancelled 2.0 L Active Medications Generic Name Dose Route Start Last Admin Trade Name Freq PRN Reason Stop Dose Admin Acetaminophen 1,000 mg 03/31/17 15:00 Ofirmev Injection - IVPB Q6H PRN FEVER OR PAIN Budesonide/Formoterol Fumarate 2 puff 03/31/17 22:00 04/01/17 09:16 Symbicort 80/4.5mcg - IH 2 puff BID OTIS Administration Carvedilol 3.125 mg 03/31/17 22:00 04/01/17 09:23 Coreg - PO Not Given BID OT[facility] Chlorhexidine Gluconate 1 applic 03/31/17 22:00 03/31/17 22:51 Hibiclens For Decolonization - TP 1 applic HS [facility] Administration Collagenase 1 applic 04/01/17 10:00 04/01/17 09:25 Santyl - TP Not Given DAILY OT[facility] Diphenhydramine HCl 25 mg 03/31/17 16:14 Benadryl - PO Q6H PRN FOR ITCHING Docusate Sodium 300 mg 03/31/17 22:00 03/31/17 22:49 Colace - PO 300 mg HS [facility] Administration Epoetin Nash 20,000 units 03/31/17 16:14 03/31/17 17:47 Epogen - IVPUSH 03/31/17 16:15 Not Given ONCE ONE Epoetin Nash 20,000 units 04/02/17 06:00 Epogen - IVPUSH 04/02/17 06:01 ONCE ONE Fentanyl 50 mcg 03/31/17 18:22 Sublimaze Injection - IVPUSH Q5M PRN PAIN Hydromorphone HCl 0.5 mg 03/31/17 15:00 03/31/17 15:30 Dilaudid Injection - IVPUSH 0.5 mg [id number] PRN Administration PAIN Hydromorphone HCl 1 mg 03/31/17 20:27 04/01/17 16:09 Dilaudid Injection - IVPUSH 1 mg Q4H PRN Administration PAIN Piperacillin/Tazobactam/Dextrose 2.25 gm in 50 mls @ 100 mls/hr 03/31/17 18: 00 04/01/17 09:55 Zosyn 2.25gm Ivpb (Premix) IVPB 100 mls/hr Q8H-IV [facility] Administration Protocol Sodium Chloride 1,000 mls @ 50 mls/hr 04/01/17 10:00 04/01/17 10:00 Normal Saline - IV 04/02/17 09:46 50 mls/hr ASDIR [facility] Administration Vancomycin HCl 1,000 mg/ 250 mls @ 250 mls/hr 04/01/17 12:57 Dextrose IVPB 04/01/17 13:56 ONCE ONE Protocol Midodrine 10 mg 03/31/17 18:00 04/01/17 14:56 Proamatine - PO 10 mg TID-MID [facility] Administration Morphine Sulfate 4 mg 03/31/17 14:58 03/31/17 18:05 Morphine Injection - IVPUSH 4 mg Q4H PRN Administration PAIN Mupirocin 1 applic 03/31/17 22:00 04/01/17 09:25 Bactroban Ointment (For Decolonization) - NS 04/05/17 21:59 1 applic BID [facility] Administration Ondansetron HCl 4 mg 03/31/17 16:14 Zofran Injection IVPUSH Q6H PRN NAUSEA AND/OR VOMITING Ranitidine HCl 150 mg 04/01/17 10:00 04/01/17 09:16 Zantac Oral Solution - PO 150 mg DAILY [facility] Administration Rosuvastatin Calcium 5 mg 03/31/17 22:00 03/31/17 22:53 Crestor - PO 5 mg HS [facility] Administration Sucralfate 0.5 gm 03/31/17 22:00 04/01/17 09:16 Carafate Oral Suspension - PO 0.5 gm BID [facility] Administration ASSESSMENT/PLAN: Patient is a 77 year old male with a significant past medical history of ESRD HD (T,Th,Sa), atrial fib, hypertension, DVT, right AKA, s/p left 2nd digit amputation lower extremity. He presented to the ED on 03/14/2017 for critical ischemia of left lower extremity. Patient is Ecuadorean speaking only and family reports having increased swelling to his left lower extremity. Pt comes with right AKA and a left middle toe amputation that was performed 3 weeks ago in [facility], where pt has been living for the past several years. Patient has medical records from [facility] in his file. On admission there is an infection of the left foot with gangrene of 2nd toe and +3 edema of the entire lower leg, and a lateral small circular ulceration. Pt comes with documentation from [facility] reflecting that he had patent DP and PT vessels in September of this year. Previous arterial study of left extremity reveals permeable arterial flow throughout extending from femoral to posterior tibial pulse. Imagin03/14/2017: CT/Abdomen CTA AOR & RLE Runoff: Extensive severe diffuse aortoiliac , femoro-popliteal and intrapopliteal, occluded left SFA and mucus occlusion of flow in a severely diseased the renal artery demonstrates at lease 70-90% stenosis. Occluded left ENMANUEL and two vessel runoff provided by [employer] and PA however degree of disease and stenosis cannot be discerned due to calcification and hardening artifacts. enlarged prostate. Small right sided pleural effusion with severe right lung base atelectic changes vs pnemonic infiltrates. 03/14/2017: US/Duplex arterial legs, limited ultrasound: Extensive artheroscleoric disease with occlusion of the SFA. There is weak, monosphasic flow present within the popliteal and posterior tibial arteries. Abdominal CTA 03/27/2017 (1) infrarenal abdominal aortic aneurysm measuring 4.6cm, similar to CTA seen on imaging 03/14/17, no dissection seen. (2) Bilateral ectatic common iliac arteries measuring up to 1.9 cm with severe calcific alherosclerosis. (3) severe high grade ostial stenosis of bilateral renal arteries with near complete occlusion. (4) significant calcific altherosclerosis at the ostia of the celiac trunk and SMA likely resulting in less than 50% stenosis (5) Calcification of the aortic valve, prominent left coronary cusp, (6) incompletely imaged bilateral pleural effusions (7) cirrhotic configuration of the liver and evidence of portal hypertension with spenomegaly. (8) apparent wall thickent of nearl the entire colon (9) marked enlargement of the prostate gland. Vascular/ID: Sepsis secondary to ischemic Left foot, BKA on 04/01 On Vanco and Zosyn as per ID, renally dosed - Vanco with dialysis On leg splint Hematology: Coagulopathy (prolonged PTT/PT), improving Thrombocytopenia @ 92, received 1 unit of platelets and prbc with dialysis yesterday HIT negative PTT mixed studies pending with prolonged PTT and risk of falls (had fallen during admission), will defer AC at this time Thrombocytopenia, likely secondary to sepsis 1 unit of platelets yesterday Neuro: Acute Metabolic Encephalopathy likely secondary to septic left foot, improving S/P left BKA Renal: ESRD, HD (on TThS) via right upper arm fistula Dialysis tomorrow, unable to tolerate dialysis yesterday due to hypotension and AVF access Cardiology: Subtherapeutic INR for Atrial Fibrillation Coumadin on hold: high fall risk, low platelets + stool for occult blood, heme following Hypertension, chronic but now with hypotension, parameters added to BP meds Cardiology following Hematology: Anemia, likely chronic 2/2 to ESRD GI work up in process, heme following F.E.N. Fluids: 1.2 liter fluid restriction, tolerating PO Electrolytes: monitor Nutrition: renal diet Prophylaxis: GI: deferred DVT: subtherapeutic INR, hold coumadin, fall risk Disposition: Requires inpatient hospitalization. Full code.
[2017-04-01] MEDS ORDERED: ONDANSETRON 4 MG/2 ML VIAL IVPUSH PRN (17:31)
[2017-04-01] MEDS ORDERED: morphine SULFATE 4 MG/ML VIAL IVPUSH PRN (17:31)
--- NOTE | 2017-04-01 18:47 | PN ---
Progress Note (short form) - Note Progress Note: Vascular Surgery Pt seen and examined. Doing well. no white count or fever Will change dressing on tuesday Faizan Villa DO
[2017-04-01] MEDS: DOCUSATE SODIUM 100 MG CAPSULE (FP) PO SCH (21:50)
[2017-04-01] MEDS: CHLORHEXIDINE GLUCONATE 4% CLEANSER FOR DECOLONIZATION TP SCH (21:51)
[2017-04-01] MEDS: ROSUVASTATIN CA 5 MG TABLET (FP) PO SCH (21:51)
[2017-04-02] MEDS: HYDROmorphone HCL CARPU-JECT 1 MG/1 ML DISP.SYRIN IVPUSH PRN ×2 (00:30→08:21)
[2017-04-02] MEDS: PIPERACILLIN/TAZOB 2.25 GM 2.25 GM/50 ML BAG IVPB SCH ×3 (02:00→18:15)
[2017-04-02] MEDS ORDERED: EPOETIN ALFA 2,000 UNITS/1 ML VIAL IVPUSH ONE ×2 (06:00→17:00)
[2017-04-02 06:02] LABS: BASOPHIL 0.9 % (0-2.0); EOSINOPHIL 1.1 % (0-4.5); MCH 29.1 pg (25.7-33.7); MEAN CELL VOLUME 93.7 fl (80-96); MEAN PLT VOLUME 8.2 fl (7.5-11.1); NEUTROPHILS 77.4 % (42.8-82.8); PLATELET COUNT 126 K/MM3 (134-434); RDW 21.3 % (11.9-15.9); WHITE BLOOD COUNT 8.9 K/mm3 (4.0-10.0)
[2017-04-02 06:32] LABS: ALBUMIN 2.2 g/dl (3.4-5.0); ANION GAP 16 (8-16); CALCIUM 8.2 mg/dL (8.5-10.1); CO2 26 mmol/L (21-32); CREATININE 5.8 mg/dL (0.7-1.3); GLUCOSE,RANDOM 54 mg/dL (74-106); SGOT/AST 21 U/L (15-37); SGPT/ALT 9 U/L (12-78)
[2017-04-02 06:34] LABS: ALK PHOS 78 U/L (45-117); BILIRUBIN,TOTAL 0.7 mg/dL (0.2-1.0); TOT PROT 4.9 g/dl (6.4-8.2)
--- NOTE | 2017-04-02 07:20 | PN ---
Progress Note, Physician Chief Complaint: S/P BKA UNDER GENERAL ANESTHESIA AND FEMORAL NERVE BLOCK FOR POST OP PAIN CONTROL History of Present Illness: POST OP DAY 2 - Current Medication List Current Medications: Active Medications Acetaminophen (Ofirmev Injection -) 1,000 mg IVPB Q6H PRN PRN Reason: FEVER OR PAIN Budesonide/Formoterol Fumarate (Symbicort 80/4.5mcg -) 2 puff IH BID [facility] Last Admin: 04/01/17 21:52 Dose: 2 puff Carvedilol (Coreg -) 3.125 mg PO BID [facility] Last Admin: 04/01/17 21:51 Dose: 3.125 mg Chlorhexidine Gluconate (Hibiclens For Decolonization -) 1 applic TP HS [facility] Last Admin: 04/01/17 21:51 Dose: 1 applic Collagenase (Santyl -) 1 applic TP DAILY [facility] Diphenhydramine HCl (Benadryl -) 25 mg PO Q6H PRN PRN Reason: FOR ITCHING Docusate Sodium (Colace -) 300 mg PO HS [facility] Last Admin: 04/01/17 21:50 Dose: 300 mg Epoetin Nash (Epogen -) 20,000 units IVPUSH ONCE ONE Stop: 03/31/17 16:15 Last Admin: 03/31/17 17:47 Dose: Not Given Epoetin Nash (Epogen -) 20,000 units IVPUSH ONCE ONE Stop: 04/02/17 06:01 Hydromorphone HCl (Dilaudid Injection -) 1 mg IVPUSH Q4H PRN PRN Reason: PAIN Last Admin: 04/02/17 00:30 Dose: 1 mg Sodium Chloride (Normal Saline -) 1,000 mls @ 50 mls/hr IV ASDIR [facility] Stop: 04/02/17 09:46 Last Admin: 04/01/17 18:30 Dose: 50 mls/hr Vancomycin HCl 1,000 mg/ (Dextrose) 250 mls @ 250 mls/hr IVPB ONCE ONE PRN Reason: Protocol Stop: 04/01/17 18:30 Piperacillin/Tazobactam/Dextrose (Zosyn 2.25gm Ivpb (Premix)) 2.25 gm in 50 mls @ 100 mls/hr IVPB Q8H-IV OTIS PRN Reason: Protocol Last Admin: 04/02/17 02:00 Dose: 100 mls/hr Midodrine (Proamatine -) 10 mg PO TID-MID [facility] Last Admin: 04/01/17 18:31 Dose: Not Given Morphine Sulfate (Morphine Sulfate) 4 mg IVPUSH Q4H PRN PRN Reason: PAIN Mupirocin (Bactroban Ointment (For Decolonization) -) 1 applic NS BID [facility] Stop: 04/05/17 21:59 Last Admin: 04/01/17 21:49 Dose: 1 applic Ondansetron HCl (Zofran Injection) 4 mg IVPUSH Q6H PRN PRN Reason: NAUSEA AND/OR VOMITING Ranitidine HCl (Zantac Oral Solution -) 150 mg PO DAILY [facility] Rosuvastatin Calcium (Crestor -) 5 mg PO HS [facility] Last Admin: 04/01/17 21:51 Dose: 5 mg Sucralfate (Carafate Oral Suspension -) 0.5 gm PO BID [facility] Last Admin: 04/01/17 21:50 Dose: 0.5 gm - Objective Vital Signs: Vital Signs Temperature 98.2 F 04/02/17 05:55 Pulse Rate 88 04/02/17 05:55 Respiratory Rate 16 04/02/17 05:55 Blood Pressure 115/71 04/02/17 05:55 O2 Sat by Pulse Oximetry (%) 96 04/01/17 20:25 Constitutional: Yes: Anxious, Mild Distress Cardiovascular: Yes: WNL Respiratory: Yes: WNL Gastrointestinal: Yes: WNL Psychiatric: Yes: Agitated Labs: CBC, BMP 04/02/17 05:45 04/02/17 05:45 INR, PTT INR 1.34 (0.82-1.09) H 03/31/17 07:10 Fibrinogen 296.0 mg/dL (238-498) D 03/30/17 06:10 Assessment/Plan PATIENT IS BACK TO BASELINE PSYCHIATRIC LEVEL, AGITATED AND DEMENTED/DELIRIOUS, NO ADVERSE EFFECT OF ANESTHETIC NOTED. UNABLE TO OBTAIN SUBJECTIVE PATIENT DATA DUE TO MENTAL STATUS. DEPT OF ANESTHESIA WILL SIGN OFF CARE AT THIS TIME.
[2017-04-02] MEDS ORDERED: HYDROmorphone HCL CARPU-JECT 2 MG/1 ML DISP.SYRIN ONE ×2 (07:57→08:01)
--- NOTE | 2017-04-02 08:44 | PN ---
Progress Note (short form) - Note Progress Note: PULM/CCM Pt seen and examined in ICU SUBJECTIVE: no events overnight plan for HD this morning . Vital Signs Temp 98.2 F 04/02/17 05:55 Pulse 104 H 04/02/17 08:00 Resp 21 04/02/17 08:00 BP 118/81 04/02/17 08:00 Pulse Ox 96 04/01/17 20:25 Intake & Output 04/01/17 04/01/17 04/02/17 11:59 23:59 11:59 Intake Total 50 600 700 Output Total 0 Balance 50 600 700 Weight 65.091 kg 65.408 kg Intake: IV 0 400 600 Normal Saline - 1,000 ml 0 @ 42 mls/hr IV ASDIR OT[facility] Rx#:[id number] Normal Saline - 1,000 ml 0 @ 42 mls/hr IV ASDIR [facility] Rx#:[id number] Normal Saline - 1,000 ml 400 @ 50 mls/hr IV ASDIR [facility] Rx#:[id number] Normal Saline - 1,000 ml 600 @ 50 mls/hr IV ASDIR OTIS Rx#:[id number] IVPB 50 200 100 Output: Urine 0 Void 0 Other: Voiding Method Incontinent # Unmeasured Voids Void 1 Bowel Movement No Weight Measurement Method Built in Bedscale Built in Bedscale Active Medications Acetaminophen (Ofirmev Injection -) 1,000 mg IVPB Q6H PRN PRN Reason: FEVER OR PAIN Budesonide/Formoterol Fumarate (Symbicort 80/4.5mcg -) 2 puff IH BID [facility] Last Admin: 04/01/17 21:52 Dose: 2 puff Carvedilol (Coreg -) 3.125 mg PO BID [facility] Last Admin: 04/01/17 21:51 Dose: 3.125 mg Chlorhexidine Gluconate (Hibiclens For Decolonization -) 1 applic TP HS [facility] Last Admin: 04/01/17 21:51 Dose: 1 applic Collagenase (Santyl -) 1 applic TP DAILY [facility] Diphenhydramine HCl (Benadryl -) 25 mg PO Q6H PRN PRN Reason: FOR ITCHING Docusate Sodium (Colace -) 300 mg PO HS [facility] Last Admin: 04/01/17 21:50 Dose: 300 mg Epoetin Nash (Epogen -) 20,000 units IVPUSH ONCE ONE Stop: 03/31/17 16:15 Last Admin: 03/31/17 17:47 Dose: Not Given Epoetin Nash (Epogen -) 20,000 units IVPUSH ONCE ONE Stop: 04/02/17 06:01 Hydromorphone HCl (Dilaudid Injection -) 1 mg IVPUSH Q4H PRN PRN Reason: PAIN Last Admin: 04/02/17 08:21 Dose: 1 mg Sodium Chloride (Normal Saline -) 1,000 mls @ 50 mls/hr IV ASDIR [facility] Stop: 04/02/17 09:46 Last Admin: 04/01/17 18:30 Dose: 50 mls/hr Vancomycin HCl 1,000 mg/ (Dextrose) 250 mls @ 250 mls/hr IVPB ONCE ONE PRN Reason: Protocol Stop: 04/01/17 18:30 Piperacillin/Tazobactam/Dextrose (Zosyn 2.25gm Ivpb (Premix)) 2.25 gm in 50 mls @ 100 mls/hr IVPB Q8H-IV OTIS PRN Reason: Protocol Last Admin: 04/02/17 02:00 Dose: 100 mls/hr Midodrine (Proamatine -) 10 mg PO TID-MID [facility] Last Admin: 04/01/17 18:31 Dose: Not Given Morphine Sulfate (Morphine Sulfate) 4 mg IVPUSH Q4H PRN PRN Reason: PAIN Mupirocin (Bactroban Ointment (For Decolonization) -) 1 applic NS BID [facility] Stop: 04/05/17 21:59 Last Admin: 04/01/17 21:49 Dose: 1 applic Ondansetron HCl (Zofran Injection) 4 mg IVPUSH Q6H PRN PRN Reason: NAUSEA AND/OR VOMITING Ranitidine HCl (Zantac Oral Solution -) 150 mg PO DAILY [facility] Rosuvastatin Calcium (Crestor -) 5 mg PO HS [facility] Last Admin: 04/01/17 21:51 Dose: 5 mg Sucralfate (Carafate Oral Suspension -) 0.5 gm PO BID [facility] Last Admin: 04/01/17 21:50 Dose: 0.5 gm CBCD WBC 8.9 K/mm3 (4.0-10.0) D 04/02/17 05:45 RBC 3.49 M/mm3 (4.00-5.60) L 04/02/17 05:45 Hgb 10.1 GM/dL (11.7-16.9) L 04/02/17 05:45 Hct 32.7 % (35.4-49) L 04/02/17 05:45 MCV 93.7 fl (80-96) 04/02/17 05:45 MCHC 31.0 g/dl (32.0-35.9) L 04/02/17 05:45 RDW 21.3 % (11.9-15.9) H 04/02/17 05:45 Plt Count 126 K/MM3 (134-434) L D 04/02/17 05:45 MPV 8.2 fl (7.5-11.1) 04/02/17 05:45 CMP Sodium 147 mmol/L (136-145) H 04/02/17 05:45 Potassium 4.2 mmol/L (3.5-5.1) 04/02/17 05:45 Chloride 105 mmol/L (98-107) 04/02/17 05:45 Carbon Dioxide 26 mmol/L (21-32) 04/02/17 05:45 Anion Gap 16 (8-16) 04/02/17 05:45 BUN 27 mg/dL (7-18) H D 04/02/17 05:45 Creatinine 5.8 mg/dL (0.7-1.3) H D 04/02/17 05:45 Creat Clearance w eGFR 9.55 (>60) 04/02/17 05:45 Calcium 8.2 mg/dL (8.5-10.1) L 04/02/17 05:45 Total Bilirubin 0.7 mg/dL (0.2-1.0) 04/02/17 05:45 AST 21 U/L (15-37) D 04/02/17 05:45 ALT 9 U/L (12-78) L D 04/02/17 05:45 Alkaline Phosphatase 78 U/L (45-117) 04/02/17 05:45 Total Protein 4.9 g/dl (6.4-8.2) L 04/02/17 05:45 Albumin 2.2 g/dl (3.4-5.0) L 04/02/17 05:45 GENERAL: Awake, responsive, agitated, HEAD: Normal with no signs of trauma. EYES: sclera an-icteric, conjunctiva clear. NECK: Normal range of motion, supple without lymphadenopathy or JVD. LUNGS: Breath sounds equal, clear to auscultation bilaterally. No wheezes, and no crackles. HEART: Regular rate and rhythm, normal S1 and S2 without murmur, rub or gallop. ABDOMEN: Soft, nontender, not distended, normoactive bowel sounds, no guarding, no rebound LOWER EXTREMITIES: b/l BKA, ecchymotic base of R knee, wrapped L knee NEUROLOGICAL: Agitated, non-focal , C/o being hungry ASSESSMENT/PLAN: POD #1 Left BKA LLE Ischemia/gangrene ESRD HD (T,Th,S) DVT Right AKA Likely chronic hypotension Coagulopathy Thrombocytopenia HIT negative IVF Local wound care per surgery O2 as needed Pain control Incentive Spirometry if able VTE prophylaxis if OK with surgery HD per Renal Fall precautions Transfer to Med/surg Tacho Ceballos ACNP [id number]
--- NOTE | 2017-04-02 09:40 | PN ---
Progress Note (short form) - Note Progress Note: Renal follow up for ESRD on HD Pt seen and examined in the ICU awake and saying that he is in pain pt refused dialysis this am getting IV dilaudid has femoral nerve block for pain as well Vital Signs Temperature 98.2 F 04/02/17 05:55 Pulse Rate 104 H 04/02/17 08:00 Respiratory Rate 21 04/02/17 08:00 Blood Pressure 118/81 04/02/17 08:00 O2 Sat by Pulse Oximetry (%) 96 04/01/17 20:25 Intake & Output 03/30/17 03/31/17 04/01/17 04/02/17 23:59 23:59 23:59 23:59 Intake Total 320 550 650 700 Output Total 0 350 0 Balance 320 200 650 700 Weight 62.397 kg 64.864 kg 65.091 kg 65.408 kg Agitated RRR CTA (anterior) Left leg in brace s/p amputation CBC, BMP 04/02/17 05:45 04/02/17 05:45 Current Medications Acetaminophen (Ofirmev Injection -) 1,000 mg IVPB Q6H PRN PRN Reason: FEVER OR PAIN Budesonide/Formoterol Fumarate (Symbicort 80/4.5mcg -) 2 puff IH BID [facility] Last Admin: 04/01/17 21:52 Dose: 2 puff Carvedilol (Coreg -) 3.125 mg PO BID [facility] Last Admin: 04/01/17 21:51 Dose: 3.125 mg Chlorhexidine Gluconate (Hibiclens For Decolonization -) 1 applic TP HS [facility] Last Admin: 04/01/17 21:51 Dose: 1 applic Collagenase (Santyl -) 1 applic TP DAILY [facility] Diphenhydramine HCl (Benadryl -) 25 mg PO Q6H PRN PRN Reason: FOR ITCHING Docusate Sodium (Colace -) 300 mg PO HS [facility] Last Admin: 04/01/17 21:50 Dose: 300 mg Epoetin Nash (Epogen -) 20,000 units IVPUSH ONCE ONE Stop: 03/31/17 16:15 Last Admin: 03/31/17 17:47 Dose: Not Given Epoetin Nash (Epogen -) 20,000 units IVPUSH ONCE ONE Stop: 04/02/17 06:01 Hydromorphone HCl (Dilaudid Injection -) 1 mg IVPUSH Q4H PRN PRN Reason: PAIN Last Admin: 04/02/17 08:21 Dose: 1 mg Sodium Chloride (Normal Saline -) 1,000 mls @ 50 mls/hr IV ASDIR [facility] Stop: 04/02/17 09:46 Last Admin: 04/01/17 18:30 Dose: 50 mls/hr Vancomycin HCl 1,000 mg/ (Dextrose) 250 mls @ 250 mls/hr IVPB ONCE ONE PRN Reason: Protocol Stop: 04/01/17 18:30 Piperacillin/Tazobactam/Dextrose (Zosyn 2.25gm Ivpb (Premix)) 2.25 gm in 50 mls @ 100 mls/hr IVPB Q8H-IV [facility] PRN Reason: Protocol Last Admin: 04/02/17 02:00 Dose: 100 mls/hr Midodrine (Proamatine -) 10 mg PO TID-MID [facility] Last Admin: 04/01/17 18:31 Dose: Not Given Mupirocin (Bactroban Ointment (For Decolonization) -) 1 applic NS BID [facility] Stop: 04/05/17 21:59 Last Admin: 04/01/17 21:49 Dose: 1 applic Ondansetron HCl (Zofran Injection) 4 mg IVPUSH Q6H PRN PRN Reason: NAUSEA AND/OR VOMITING Quetiapine Fumarate (Seroquel -) 25 mg PO BID [facility] Ranitidine HCl (Zantac Oral Solution -) 150 mg PO DAILY [facility] Rosuvastatin Calcium (Crestor -) 5 mg PO HS [facility] Last Admin: 04/01/17 21:51 Dose: 5 mg Sucralfate (Carafate Oral Suspension -) 0.5 gm PO BID [facility] Last Admin: 04/01/17 21:50 Dose: 0.5 gm 77 year old gentleman with PMhx of ESRD on HD (TTS), Hypertension, DVT, PVD s/p right AKA and left toe amputation who presented to the ED with complaints of pain in his left foot and admitted fro soft tissue infection of the foot with concern for worsening ischemic disease. #ESRD on HD for dialysis today, pt refused to cooperate when HD nurse came will attempt again later in the day dose all meds for intermittent HD #Wound/Ischemia of left LE s/p amputation wound care Vascular follow up pain control continue Abx as per ID recs #Acute on Chronic Anemia likely due to infection but need to r/o blood loss Hgb stable chase continue IVANIA with HD #Hypernatremia oral water intake as tolerated #Hypocalcemia Corrected Ca is 9.8 Check PTH Thank you Raghu Boogie DO Problem List - Problems (1) Critical lower limb ischemia Code(s): I99.8 - OTHER DISORDER OF CIRCULATORY SYSTEM (2) Open wnd foot-complicated Code(s): S91.309A - UNSPECIFIED OPEN WOUND, UNSPECIFIED FOOT, INITIAL ENCOUNTER (3) HTN (hypertension) Code(s): I10 - ESSENTIAL (PRIMARY) HYPERTENSION Qualifiers: Hypertension type: essential hypertension Qualified Code(s): I10 - Essential (primary) hypertension (4) ESRD (end stage renal disease) Code(s): N18.6 - END STAGE RENAL DISEASE (5) Anemia Code(s): D64.9 - ANEMIA, UNSPECIFIED
[2017-04-02] MEDS ORDERED: QUEtiapine FUMARATE 50 MG TABLET PO SCH (10:00)
[2017-04-02] MEDS ORDERED: HYDROmorphone HCL CARPU-JECT 2 MG/1 ML DISP.SYRIN IVPUSH ONE ×2 (10:10→11:41)
[2017-04-02] MEDS ORDERED: PT OWN MED DRAWER 7, Y5N ONE ×2 (10:12→18:13)
--- NOTE | 2017-04-02 10:16 | PN ---
Physical Exam: SUBJECTIVE: Patient seen and examined in ICU. He mumbling, screaming out, says he wants his leg brace cut off. + restraints OBJECTIVE: Vital Signs Period Temp Pulse Resp BP Sys/Coleman Pulse Ox Last 24 Hr 98.1 F-98.6 F 70-104 15-22 94-120/51-81 92-96 PE Neuro: awake, confused, oriented to son, person, cn 2-12intact Pulm: CTA anteriorly CV: s1 s2 irregular rate + 2/6 systolic murmur Abd: soft, nt, nd +bs Ext: R AKA amputation, left BKA with brace + tenderness Laboratory Results - last 24 hr 04/01/17 04/02/17 04/02/17 10:27 05:45 05:45 WBC 8.9 D RBC 3.49 L Hgb 10.1 L Hct 32.7 L MCV 93.7 MCH 29.1 MCHC 31.0 L RDW 21.3 H Plt Count 126 L D MPV 8.2 Neutrophils % 77.4 Lymphocytes % 8.3 Monocytes % 12.3 H Eosinophils % 1.1 D Basophils % 0.9 Sodium 146 H Potassium 3.7 Chloride 105 Carbon Dioxide 27 Anion Gap 14 BUN 20 H D Creatinine 4.7 H D Creat Clearance w eGFR 12.18 Random Glucose 83 Calcium 8.2 L Total Bilirubin 0.7 AST 13 L D ALT 7 L Alkaline Phosphatase 76 Total Protein 4.6 L Albumin 2.0 L Random Vancomycin 19.524 04/02/17 05:45 WBC RBC Hgb Hct MCV MCH MCHC RDW Plt Count MPV Neutrophils % Lymphocytes % Monocytes % Eosinophils % Basophils % Sodium 147 H Potassium 4.2 Chloride 105 Carbon Dioxide 26 Anion Gap 16 BUN 27 H D Creatinine 5.8 H D Creat Clearance w eGFR 9.55 Random Glucose 54 L D Calcium 8.2 L Total Bilirubin 0.7 AST 21 D ALT 9 L D Alkaline Phosphatase 78 Total Protein 4.9 L Albumin 2.2 L Random Vancomycin Active Medications Generic Name Dose Route Start Last Admin Trade Name Freq PRN Reason Stop Dose Admin Acetaminophen 1,000 mg 04/01/17 17:31 Ofirmev Injection - IVPB Q6H PRN FEVER OR PAIN Amino Acids 30 ml 04/02/17 10:15 Prosource No Carb Liquid Pkt PO BID@0800,1730 [facility] Budesonide/Formoterol Fumarate 2 puff 04/01/17 22:00 04/01/17 21:52 Symbicort 80/4.5mcg - IH 2 puff BID [facility] Administration Carvedilol 3.125 mg 04/01/17 22:00 04/01/17 21:51 Coreg - PO 3.125 mg BID [facility] Administration Chlorhexidine Gluconate 1 applic 04/01/17 22:00 04/01/17 21:51 Hibiclens For Decolonization - TP 1 applic HS [facility] Administration Collagenase 1 applic 04/02/17 10:00 Santyl - TP DAILY [facility] Diphenhydramine HCl 25 mg 04/01/17 17:31 Benadryl - PO Q6H PRN FOR ITCHING Docusate Sodium 300 mg 04/01/17 22:00 04/01/17 21:50 Colace - PO 300 mg HS [facility] Administration Epoetin Nash 20,000 units 03/31/17 16:14 03/31/17 17:47 Epogen - IVPUSH 03/31/17 16:15 Not Given ONCE ONE Epoetin Nash 20,000 units 04/02/17 06:00 Epogen - IVPUSH 04/02/17 06:01 ONCE ONE Hydromorphone HCl 2 mg 04/02/17 10:10 Dilaudid Injection - IVPUSH Q3H PRN PAIN Hydromorphone HCl 2 mg 04/02/17 10:10 Dilaudid Injection - IVPUSH 04/02/17 10:11 ONCE ONE Vancomycin HCl 1,000 mg/ 250 mls @ 250 mls/hr 04/01/17 17:31 Dextrose IVPB 04/01/17 18:30 ONCE ONE Protocol Piperacillin/Tazobactam/Dextrose 2.25 gm in 50 mls @ 100 mls/hr 04/01/17 18: 00 04/02/17 02:00 Zosyn 2.25gm Ivpb (Premix) IVPB 100 mls/hr Q8H-IV [facility] Administration Protocol Midodrine 10 mg 04/01/17 18:00 04/01/17 18:31 Proamatine - PO Not Given TID-MID [facility] Mupirocin 1 applic 04/01/17 22:00 04/01/17 21:49 Bactroban Ointment (For Decolonization) - NS 04/05/17 21:59 1 applic BID [facility] Administration Ondansetron HCl 4 mg 04/01/17 17:31 Zofran Injection IVPUSH Q6H PRN NAUSEA AND/OR VOMITING Quetiapine Fumarate 25 mg 04/02/17 10:00 Seroquel - PO BID [facility] Ranitidine HCl 150 mg 04/02/17 10:00 Zantac Oral Solution - PO DAILY [facility] Rosuvastatin Calcium 5 mg 04/01/17 22:00 04/01/17 21:51 Crestor - PO 5 mg HS [facility] Administration Sucralfate 0.5 gm 04/01/17 22:00 04/01/17 21:50 Carafate Oral Suspension - PO 0.5 gm BID [facility] Administration Imaging: - ECHO: severely reduced LV systolic function, severe TR, moderate pulmonary HTN , mild AR, severely dilated LA and RA Assessment: 77 year old male with PMHX significant for ESRD HD (,,S) HTN, DVT , PAD, vasculopathy s/p R AKA, s/p L SFA angioplasty and stent placement and 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 Plan: 1. LLE ischemic leg with progressive dry gangrene - s/p L BKA 04/01 - Increase dilaudid 2mg prn - Vanco/Zosyn per ID - Maintain leg brace - Vascular seeing 2. ESRD on HD, ( S) - Will try HD again later this afternoon, pt uncooperative this AM - Vanco w/ HD - D/w renal 3. Acute on Chronic Anemia - Infection/disease process related - Hgb stable, transfuse hgb <7 - Epogen with HD 4. AFib, [id number] 4 - Pt at increase risk of falls and self harm at this time d/t neuropsych deposition, will hold on initiation of coumadin until can reach hemostasis - Rate controlled off AC 5. Coagulopathy - Hx of DVT - Mixing studies reviewed, no LA 6. CAD - Coreg 3.125mg BID - Crestor 5 HS 7. Thrombocytopenia- Improving - Platelet transfusion 04/01 8. Hypernatremia - Encourage PO intake 9. Hypocalcemia - Corrected Ca is 9.8 - Check PTH 10. Liver cirrhosis 11. + stool occult - No overt signs of GI bleed - No EGD/colonoscopy indicated with no active bleeding - H2 BID - Sucralfate BID Visit type - Emergency Visit Emergency Visit: Yes ED Registration Date: 03/14/17 Care time: The patient presented to the Emergency Department on the above date and was hospitalized for further evaluation of their emergent condition. - New Patient This patient is new to me today: Yes Date on this admission: 04/02/17 - Critical Care Critical Care patient: No
[2017-04-02] MEDS: ACETAMINOPHEN 1000 MG/100 ML VIAL (NON FORMULARY) IVPB PRN (10:26)
[2017-04-02] MEDS: SUCRALFATE 1 GM/10 ML UNIT DOSE CUPS PO SCH ×2 (10:35→22:02)
[2017-04-02] MEDS: CARVEDILOL 3.125 MG TABLET (FP) PO SCH ×2 (10:42→22:03)
[2017-04-02] MEDS: RANITIDINE HCL 150 MG/10 ML UNIT-DOSE PO SCH (10:43)
[2017-04-02] MEDS: AMINO ACIDS/PROTEIN HYDROLYS 30 ML LIQUID.PKT PO SCH ×2 (10:47→18:14)
[2017-04-02] MEDS: BUDESONIDE/FORMETEROL FUMARATE 80/4.5 mcg INHALER IH SCH ×2 (10:48→22:00)
--- NOTE | 2017-04-02 10:57 | PN ---
Physical Exam: SUBJECTIVE: Patient seen and examined at bedside. Pt post-op from [place]. Pt has been disoriented and agitated since arrival in ICU. afebrile. No nausea/vomiting /diarrhea. OBJECTIVE: Vital Signs Period Temp Pulse Resp BP Sys/Coleman Pulse Ox Last 24 Hr 98.1 F-98.6 F 70-104 15-22 94-120/51-81 96-96 GENERAL: The patient is asleep but rousable to name and oriented to name, in some mild distress likely 2/2 disorientation. Pt does not appear to be in pain, nor does he complain of pain HEAD: Normal with no signs of trauma. EYES: Pt uncooperative with exam. No H-test performed. PERRL. sclera anicteric, conjunctiva clear. No ptosis. ENT: oropharynx clear without exudates, dry mucous membranes. NECK: Trachea midline, full range of motion, supple. LUNGS: Breath sounds equal, clear to auscultation bilaterally, no wheezes, no crackles, no accessory muscle use. HEART: irregular rhythm, S1, S2 without murmur, rub or gallop. ABDOMEN: Soft, nontender, nondistended, normoactive bowel sounds, no guarding, no rebound, no hepatosplenomegaly, no masses. EXTREMITIES: poor pulses in upper extremities. Right AKA. L BKA. Stump wrapped and leg in brace. NEUROLOGICAL: uncooperative with exam. Moves limbs spontaneously. mumbling speech, gait not observed. PSYCH: Disoriented and distressed SKIN: Warm, dry, normal turgor, no rashes or lesions noted Laboratory Results - last 24 hr 04/01/17 04/02/17 04/02/17 10:27 05:45 05:45 WBC 8.9 D RBC 3.49 L Hgb 10.1 L Hct 32.7 L MCV 93.7 MCH 29.1 MCHC 31.0 L RDW 21.3 H Plt Count 126 L D MPV 8.2 Neutrophils % 77.4 Lymphocytes % 8.3 Monocytes % 12.3 H Eosinophils % 1.1 D Basophils % 0.9 Sodium 146 H Potassium 3.7 Chloride 105 Carbon Dioxide 27 Anion Gap 14 BUN 20 H D Creatinine 4.7 H D Creat Clearance w eGFR 12.18 Random Glucose 83 Calcium 8.2 L Total Bilirubin 0.7 AST 13 L D ALT 7 L Alkaline Phosphatase 76 Total Protein 4.6 L Albumin 2.0 L Random Vancomycin 19.524 04/02/17 05:45 WBC RBC Hgb Hct MCV MCH MCHC RDW Plt Count MPV Neutrophils % Lymphocytes % Monocytes % Eosinophils % Basophils % Sodium 147 H Potassium 4.2 Chloride 105 Carbon Dioxide 26 Anion Gap 16 BUN 27 H D Creatinine 5.8 H D Creat Clearance w eGFR 9.55 Random Glucose 54 L D Calcium 8.2 L Total Bilirubin 0.7 AST 21 D ALT 9 L D Alkaline Phosphatase 78 Total Protein 4.9 L Albumin 2.2 L Random Vancomycin Active Medications Generic Name Dose Route Start Last Admin Trade Name Freq PRN Reason Stop Dose Admin Acetaminophen 1,000 mg 04/01/17 17:31 04/02/17 10:26 Ofirmev Injection - IVPB 1,000 mg Q6H PRN Administration FEVER OR PAIN Amino Acids 30 ml 04/02/17 10:15 Prosource No Carb Liquid Pkt PO BID@0800,1730 [facility] Budesonide/Formoterol Fumarate 2 puff 04/01/17 22:00 04/01/17 21:52 Symbicort 80/4.5mcg - IH 2 puff BID [facility] Administration Carvedilol 3.125 mg 04/01/17 22:00 04/01/17 21:51 Coreg - PO 3.125 mg BID [facility] Administration Chlorhexidine Gluconate 1 applic 04/01/17 22:00 04/01/17 21:51 Hibiclens For Decolonization - TP 1 applic HS [facility] Administration Collagenase 1 applic 04/02/17 10:00 Santyl - TP DAILY [facility] Diphenhydramine HCl 25 mg 04/01/17 17:31 Benadryl - PO Q6H PRN FOR ITCHING Docusate Sodium 300 mg 04/01/17 22:00 04/01/17 21:50 Colace - PO 300 mg HS [facility] Administration Epoetin Nash 20,000 units 03/31/17 16:14 03/31/17 17:47 Epogen - IVPUSH 03/31/17 16:15 Not Given ONCE ONE Epoetin Nash 20,000 units 04/02/17 06:00 Epogen - IVPUSH 04/02/17 06:01 ONCE ONE Hydromorphone HCl 2 mg 04/02/17 10:10 Dilaudid Injection - IVPUSH Q3H PRN PAIN Hydromorphone HCl 2 mg 04/02/17 10:10 04/02/17 10:14 Dilaudid Injection - IVPUSH 04/02/17 10:11 2 mg ONCE ONE Administration Vancomycin HCl 1,000 mg/ 250 mls @ 250 mls/hr 04/01/17 17:31 Dextrose IVPB 04/01/17 18:30 ONCE ONE Protocol Piperacillin/Tazobactam/Dextrose 2.25 gm in 50 mls @ 100 mls/hr 04/01/17 18: 00 04/02/17 10:27 Zosyn 2.25gm Ivpb (Premix) IVPB 100 mls/hr Q8H-IV [facility] Administration Protocol Midodrine 10 mg 04/01/17 18:00 04/01/17 18:31 Proamatine - PO Not Given TID-MID [facility] Mupirocin 1 applic 04/01/17 22:00 04/01/17 21:49 Bactroban Ointment (For Decolonization) - NS 04/05/17 21:59 1 applic BID [facility] Administration Ondansetron HCl 4 mg 04/01/17 17:31 Zofran Injection IVPUSH Q6H PRN NAUSEA AND/OR VOMITING Quetiapine Fumarate 25 mg 04/02/17 10:00 Seroquel - PO BID [facility] Ranitidine HCl 150 mg 04/02/17 10:00 Zantac Oral Solution - PO DAILY [facility] Rosuvastatin Calcium 5 mg 04/01/17 22:00 04/01/17 21:51 Crestor - PO 5 mg HS [facility] Administration Sucralfate 0.5 gm 04/01/17 22:00 04/01/17 21:50 Carafate Oral Suspension - PO 0.5 gm BID [facility] Administration ASSESSMENT/PLAN: 77 y/o M with significant hx of ESRD HD (T,Th,S), HTN, DVT, 3 months s/p R AKA, s/p L 2nd digit amputation of lower extremity, who presented to ED in February for gradual worsening of L 2nd/3rd digit interspace pain x 6 weeks. Pt reported LLE edema during this time. Denied fever, chills, cough, hemoptysis, SOB, CP, N/ V/D. Pt was admitted to med-surg initially for evluation of ischemia and L foot wounds. While on the floor, pt was found to have L SFA occlusion and gangrene, and later underwent SFA angioplasty and stent placement on 03/17/17. He also had L BKA d/t gangrene, which was done today, 03/31/17. Pt transferred to ICU for continued management. 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 -Ao valve calcification, f/u w/ cards out/pt -b/l pleural effusion -cirrhosis, portal HTN, splenomegally, likely chronic. 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 Fall risk #Dispo -transfer to tele Lew Husain MD PGY-1 ICU case discussed with attending Visit type - Emergency Visit Emergency Visit: No - New Patient This patient is new to me today: Yes Date on this admission: 04/02/17 - Critical Care Critical Care patient: No - Discharge Referral Referred to [facility] No
[2017-04-02] MEDS: QUEtiapine FUMARATE 25 MG TABLET (FP) PO SCH ×2 (11:34→22:03)
[2017-04-02] MEDS ORDERED: LORazepam 2 MG/ML SDV VIAL ONE (11:47)
--- NOTE | 2017-04-02 13:44 | PN ---
Progress Note (short form) - Note Progress Note: Seen in follow up. Sleeping but rousable. Agitated Meds reviewed. Current Medications Generic Name Dose Route Start Last Admin Trade Name Freq PRN Reason Stop Dose Admin Acetaminophen 1,000 mg 04/01/17 17:31 04/02/17 10:26 Ofirmev Injection - IVPB 1,000 mg Q6H PRN Administration FEVER OR PAIN Amino Acids 30 ml 04/02/17 11:00 04/02/17 10:47 Prosource No Carb Liquid Pkt PO Not Given BID@0800,1730 [facility] Budesonide/Formoterol Fumarate 2 puff 04/01/17 22:00 04/02/17 10:48 Symbicort 80/4.5mcg - IH Not Given BID [facility] Carvedilol 3.125 mg 04/01/17 22:00 04/02/17 10:42 Coreg - PO 3.125 mg BID [facility] Administration Chlorhexidine Gluconate 1 applic 04/01/17 22:00 04/01/17 21:51 Hibiclens For Decolonization - TP 1 applic HS [facility] Administration Collagenase 1 applic 04/02/17 10:00 Santyl - TP DAILY [facility] Diphenhydramine HCl 25 mg 04/01/17 17:31 Benadryl - PO Q6H PRN FOR ITCHING Docusate Sodium 300 mg 04/01/17 22:00 04/01/17 21:50 Colace - PO 300 mg HS [facility] Administration Epoetin Nash 20,000 units 04/02/17 06:00 Epogen - IVPUSH 04/02/17 06:01 ONCE ONE Hydromorphone HCl 2 mg 04/02/17 10:10 Dilaudid Injection - IVPUSH Q3H PRN PAIN Vancomycin HCl 1,000 mg/ 250 mls @ 250 mls/hr 04/01/17 17:31 Dextrose IVPB 04/01/17 18:30 ONCE ONE Protocol Piperacillin/Tazobactam/Dextrose 2.25 gm in 50 mls @ 100 mls/hr 04/01/17 18: 00 04/02/17 10:27 Zosyn 2.25gm Ivpb (Premix) IVPB 100 mls/hr Q8H-IV [facility] Administration Protocol Midodrine 10 mg 04/01/17 18:00 04/01/17 18:31 Proamatine - PO Not Given TID-MID [facility] Mupirocin 1 applic 04/01/17 22:00 04/01/17 21:49 Bactroban Ointment (For Decolonization) - NS 04/05/17 21:59 1 applic BID [facility] Administration Ondansetron HCl 4 mg 04/01/17 17:31 Zofran Injection IVPUSH Q6H PRN NAUSEA AND/OR VOMITING Quetiapine Fumarate 25 mg 04/02/17 10:50 04/02/17 11:34 Seroquel - PO 25 mg BID [facility] Administration Ranitidine HCl 150 mg 04/02/17 10:00 04/02/17 10:43 Zantac Oral Solution - PO 150 mg DAILY [facility] Administration Rosuvastatin Calcium 5 mg 04/01/17 22:00 04/01/17 21:51 Crestor - PO 5 mg HS [facility] Administration Sucralfate 0.5 gm 04/01/17 22:00 04/02/17 10:35 Carafate Oral Suspension - PO 0.5 gm BID [facility] Administration On exam: Last Vital Signs Temp Pulse Resp BP Pulse Ox 98.4 F 68 10 L 98/57 95 04/02/17 13:00 04/02/17 13:00 04/02/17 13:00 04/02/17 13:00 04/02/17 09:00 General: Supine in bed, thin. Extremities: Pallor, no icterus. Chest:breathing mask, mildly tachpneic CVS: S1, S2, no gallop or murmur. Abdomen: Soft, no organomegaly, no masses. Neuro: Non-focal, disoriented. CBC, BMP 04/02/17 05:45 04/02/17 05:45 Assessment. Peripheral vascular disease s/p recent LE amputations. Prior coagulopathy now resolving. Anticoagulation (indicated for AF and prior DVT) currently held out of concern for hemostasis - requires ongoing evaluation - likely at high risk of thromboembolic manifestations. Mental status would need evaluation if currently significantly changed from baseline.
[2017-04-02] MEDS: MIDODRINE HCL 5 MG TABLET PO SCH ×3 (15:47→18:14)
[2017-04-02] MEDS: MUPIROCIN 2% TOPICAL OINTMENT FOR DECOLONIZATION NS SCH ×2 (15:48→22:01)
[2017-04-02] MEDS: COLLAGENASE CLOSTRIDIUM HIST. 30 GRAMS TUBE TP SCH (15:52)
--- NOTE | 2017-04-02 16:27 | PN ---
Progress Note, Physician History of Present Illness: patient stable post op bka anxious being dialysed - Current Medication List Current Medications: Active Medications Acetaminophen (Ofirmev Injection -) 1,000 mg IVPB Q6H PRN PRN Reason: FEVER OR PAIN Last Admin: 04/02/17 10:26 Dose: 1,000 mg Amino Acids (Prosource No Carb Liquid Pkt) 30 ml PO BID@0800,1730 [facility] Last Admin: 04/02/17 10:47 Dose: Not Given Budesonide/Formoterol Fumarate (Symbicort 80/4.5mcg -) 2 puff IH BID [facility] Last Admin: 04/02/17 10:48 Dose: Not Given Carvedilol (Coreg -) 3.125 mg PO BID [facility] Last Admin: 04/02/17 10:42 Dose: 3.125 mg Chlorhexidine Gluconate (Hibiclens For Decolonization -) 1 applic TP HS [facility] Last Admin: 04/01/17 21:51 Dose: 1 applic Collagenase (Santyl -) 1 applic TP DAILY [facility] Last Admin: 04/02/17 15:52 Dose: Not Given Diphenhydramine HCl (Benadryl -) 25 mg PO Q6H PRN PRN Reason: FOR ITCHING Docusate Sodium (Colace -) 300 mg PO HS [facility] Last Admin: 04/01/17 21:50 Dose: 300 mg Epoetin Nash (Epogen -) 20,000 units IVPUSH ONCE ONE Stop: 04/02/17 06:01 Hydromorphone HCl (Dilaudid Injection -) 2 mg IVPUSH Q3H PRN PRN Reason: PAIN Vancomycin HCl 1,000 mg/ (Dextrose) 250 mls @ 250 mls/hr IVPB ONCE ONE PRN Reason: Protocol Stop: 04/01/17 18:30 Piperacillin/Tazobactam/Dextrose (Zosyn 2.25gm Ivpb (Premix)) 2.25 gm in 50 mls @ 100 mls/hr IVPB Q8H-IV [facility] PRN Reason: Protocol Last Admin: 04/02/17 10:27 Dose: 100 mls/hr Midodrine (Proamatine -) 10 mg PO TID-MID [facility] Last Admin: 04/02/17 15:48 Dose: 10 mg Mupirocin (Bactroban Ointment (For Decolonization) -) 1 applic NS BID [facility] Stop: 04/05/17 21:59 Last Admin: 04/02/17 15:48 Dose: 1 applic Ondansetron HCl (Zofran Injection) 4 mg IVPUSH Q6H PRN PRN Reason: NAUSEA AND/OR VOMITING Quetiapine Fumarate (Seroquel -) 25 mg PO BID [facility] Last Admin: 04/02/17 11:34 Dose: 25 mg Ranitidine HCl (Zantac Oral Solution -) 150 mg PO DAILY [facility] Last Admin: 04/02/17 10:43 Dose: 150 mg Rosuvastatin Calcium (Crestor -) 5 mg PO HS [facility] Last Admin: 04/01/17 21:51 Dose: 5 mg Sucralfate (Carafate Oral Suspension -) 0.5 gm PO BID [facility] Last Admin: 04/02/17 10:35 Dose: 0.5 gm - Objective Vital Signs: Vital Signs Temperature 98.4 F 04/02/17 13:00 Pulse Rate 68 04/02/17 14:00 Respiratory Rate 21 04/02/17 14:00 Blood Pressure 99/68 04/02/17 14:00 O2 Sat by Pulse Oximetry (%) 95 04/02/17 09:00 Constitutional: Yes: No Distress, Calm Cardiovascular: Yes: Regular Rate and Rhythm Respiratory: Yes: Regular, CTA Bilaterally Gastrointestinal: Yes: Normal Bowel Sounds, Soft Musculoskeletal: Yes: Other Extremities: Yes: Other (bka) Neurological: Yes: Alert Psychiatric: Yes: Alert Labs: CBC, BMP 04/02/17 05:45 04/02/17 05:45 INR, PTT INR 1.34 (0.82-1.09) H 03/31/17 07:10 Fibrinogen 296.0 mg/dL (238-498) D 03/30/17 06:10 Assessment/Plan Problem List - Problems (1) Anemia Code(s): D64.9 - ANEMIA, UNSPECIFIED (2) Critical lower limb ischemia Code(s): I99.8 - OTHER DISORDER OF CIRCULATORY SYSTEM (3) ESRD (end stage renal disease) Code(s): N18.6 - END STAGE RENAL DISEASE (4) HTN (hypertension) Code(s): I10 - ESSENTIAL (PRIMARY) HYPERTENSION (5) Open wnd foot-complicated Code(s): S91.309A - UNSPECIFIED OPEN WOUND, UNSPECIFIED FOOT, INITIAL ENCOUNTER cardiomyopathy gangrene of the foot plan ct abx post op bka will stop abx probably on tuesday rest ct as per icu patient improving cc time 38 min
[2017-04-02 16:56] LABS: MCH 28.6 pg (25.7-33.7); MCHC 31.5 g/dl (32.0-35.9); MEAN PLT VOLUME 8.1 fl (7.5-11.1); PLATELET COUNT 90 K/MM3 (134-434); RDW 21.2 % (11.9-15.9)
[2017-04-02] MEDS ORDERED: EPOETIN ALFA 20,000 UNIT/1 ML VIAL IVPUSH ONE (17:00)
[2017-04-02 17:15] LABS: ANION GAP 12 (8-16); CALCIUM 7.7 mg/dL (8.5-10.1); CO2 27 mmol/L (21-32); CREATININE 5.9 mg/dL (0.7-1.3); GLUCOSE,RANDOM 78 mg/dL (74-106); PHOSPHOROUS 4.5 mg/dL (2.5-4.9)
[2017-04-02 18:46] LABS: ANISOCYTOSIS 2+; MACROCYTOSIS 2+; MICROCYTOSIS 2+; POIKILOCYTOSIS 2+; POLYCHROMASIA 1+; TEAR DROP CELLS 1+
[2017-04-02 18:47] LABS: OVALOCYTE 1+
[2017-04-02] MEDS: DOCUSATE SODIUM 100 MG CAPSULE (FP) PO SCH (22:02)
[2017-04-02] MEDS: ROSUVASTATIN CA 5 MG TABLET (FP) PO SCH (22:03)
[2017-04-02] MEDS: CHLORHEXIDINE GLUCONATE 4% CLEANSER FOR DECOLONIZATION TP SCH (22:03)
[2017-04-03] MEDS: PIPERACILLIN/TAZOB 2.25 GM 2.25 GM/50 ML BAG IVPB SCH ×3 (01:11→17:16)
[2017-04-03] MEDS: HYDROmorphone HCL CARPU-JECT 2 MG/1 ML DISP.SYRIN IVPUSH PRN ×2 (01:18→11:13)
[2017-04-03] MEDS: ACETAMINOPHEN 1000 MG/100 ML VIAL (NON FORMULARY) IVPB PRN (05:39)
[2017-04-03] MEDS ORDERED: PT OWN MED DRAWER 7, Y5N ONE ×3 (06:38→20:10)
[2017-04-03] MEDS: AMINO ACIDS/PROTEIN HYDROLYS 30 ML LIQUID.PKT PO SCH ×2 (08:10→17:16)
[2017-04-03 09:21] LABS: ANION GAP 14 (8-16); CALCIUM 7.8 mg/dL (8.5-10.1); CO2 27 mmol/L (21-32); CREATININE 4.3 mg/dL (0.7-1.3); GLUCOSE,RANDOM 70 mg/dL (74-106)
[2017-04-03] MEDS: RANITIDINE HCL 150 MG/10 ML UNIT-DOSE PO SCH (11:10)
[2017-04-03] MEDS: CARVEDILOL 3.125 MG TABLET (FP) PO SCH ×2 (11:11→21:06)
[2017-04-03] MEDS: QUEtiapine FUMARATE 25 MG TABLET (FP) PO SCH ×2 (11:11→21:06)
[2017-04-03] MEDS: MIDODRINE HCL 5 MG TABLET PO SCH ×3 (11:12→17:17)
[2017-04-03] MEDS: BUDESONIDE/FORMETEROL FUMARATE 80/4.5 mcg INHALER IH SCH ×2 (11:12→21:09)
[2017-04-03] MEDS: MUPIROCIN 2% TOPICAL OINTMENT FOR DECOLONIZATION NS SCH (11:14)
[2017-04-03] MEDS: COLLAGENASE CLOSTRIDIUM HIST. 30 GRAMS TUBE TP SCH (11:15)
[2017-04-03] MEDS: SUCRALFATE 1 GM/10 ML UNIT DOSE CUPS PO SCH ×2 (11:17→21:05)
--- NOTE | 2017-04-03 14:58 | PN ---
Progress Note (short form) - Note Progress Note: Vascular Surgery left bka dressing changed. Stump is clean, dry and intact. no issues. Can be transferred to snf. Need to remove eliezer in 10 days. Faizan Villa DO
--- NOTE | 2017-04-03 15:21 | PN ---
Physical Exam: SUBJECTIVE: Patient seen and examined. Pt continues to scream out, even while at rest, per vascular returning to baseline mental status. Restraints in place OBJECTIVE: Vital Signs Period Temp Pulse Resp BP Sys/Coleman Pulse Ox Last 24 Hr 97 F-98.1 F 68-95 18-22 87-121/57-68 96-99 PE Neuro: awake, confused, oriented to son, person, cn 2-12intact Pulm: CTA anteriorly CV: s1 s2 irregular rate + 2/6 systolic murmur Abd: soft, nt, nd +bs Ext: R AKA amputation, left BKA with brace dressing cdi Laboratory Results - last 24 hr 03/30/17 04/02/17 04/02/17 13:40 16:00 16:00 WBC 5.0 D RBC 3.11 L Hgb 8.9 L D Hct 28.3 L MCV 91.0 MCH 28.6 MCHC 31.5 L RDW 21.2 H Plt Count 90 L D MPV 8.1 Polychromasia 1+ Poikilocytosis 2+ Anisocytosis 2+ Microcytosis 2+ Macrocytosis 2+ Tear Drop Cells 1+ Ovalocytes 1+ Sodium 145 Potassium 3.5 Chloride 106 Carbon Dioxide 27 Anion Gap 12 BUN 31 H Creatinine 5.9 H Random Glucose 78 D Calcium 7.7 L Phosphorus 4.5 D Magnesium 2.0 Blood Type O POSITIVE Antibody Screen Negative Crossmatch See Detail 04/02/17 04/03/17 21:35 08:30 WBC RBC Hgb Hct MCV MCH MCHC RDW Plt Count MPV Polychromasia Poikilocytosis Anisocytosis Microcytosis Macrocytosis Tear Drop Cells Ovalocytes Sodium 145 Potassium 4.0 3.1 L D Chloride 104 Carbon Dioxide 27 Anion Gap 14 BUN 16 D Creatinine 4.3 H D Random Glucose 70 L Calcium 7.8 L Phosphorus Magnesium Blood Type Antibody Screen Crossmatch Active Medications Generic Name Dose Route Start Last Admin Trade Name Freq PRN Reason Stop Dose Admin Acetaminophen 1,000 mg 04/01/17 17:31 04/03/17 05:39 Ofirmev Injection - IVPB 1,000 mg Q6H PRN Administration FEVER OR PAIN Amino Acids 30 ml 04/02/17 11:00 04/03/17 08:10 Prosource No Carb Liquid Pkt PO 30 ml BID@0800,1730 [facility] Administration Budesonide/Formoterol Fumarate 2 puff 04/01/17 22:00 04/03/17 11:12 Symbicort 80/4.5mcg - IH 2 puff BID [facility] Administration Carvedilol 3.125 mg 04/01/17 22:00 04/03/17 11:11 Coreg - PO 3.125 mg BID [facility] Administration Chlorhexidine Gluconate 1 applic 04/01/17 22:00 04/02/17 22:03 Hibiclens For Decolonization - TP 1 applic HS [facility] Administration Diphenhydramine HCl 25 mg 04/01/17 17:31 Benadryl - PO Q6H PRN FOR ITCHING Docusate Sodium 300 mg 04/01/17 22:00 04/02/17 22:02 Colace - PO 300 mg HS [facility] Administration Hydromorphone HCl 2 mg 04/02/17 10:10 04/03/17 11:13 Dilaudid Injection - IVPUSH 2 mg Q3H PRN Administration PAIN Piperacillin/Tazobactam/Dextrose 2.25 gm in 50 mls @ 100 mls/hr 04/01/17 18: 00 04/03/17 11:12 Zosyn 2.25gm Ivpb (Premix) IVPB 100 mls/hr Q8H-IV [facility] Administration Protocol Midodrine 10 mg 04/01/17 18:00 04/03/17 11:12 Proamatine - PO 10 mg TID-MID [facility] Administration Ondansetron HCl 4 mg 04/01/17 17:31 Zofran Injection IVPUSH Q6H PRN NAUSEA AND/OR VOMITING Quetiapine Fumarate 25 mg 04/02/17 10:50 04/03/17 11:11 Seroquel - PO 25 mg BID [facility] Administration Ranitidine HCl 150 mg 04/02/17 10:00 04/03/17 11:10 Zantac Oral Solution - PO 150 mg DAILY [facility] Administration Rosuvastatin Calcium 5 mg 04/01/17 22:00 04/02/17 22:03 Crestor - PO 5 mg HS [facility] Administration Sucralfate 0.5 gm 04/01/17 22:00 04/03/17 11:17 Carafate Oral Suspension - PO 0.5 gm BID [facility] Administration Imaging: - ECHO: severely reduced LV systolic function, severe TR, moderate pulmonary HTN , mild AR, severely dilated LA and RA Assessment: 77 year old male with PMHX significant for ESRD HD (T,,S) HTN, DVT , PAD, vasculopathy s/p R AKA, s/p L SFA angioplasty and stent placement and 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 Plan: 1. LLE ischemic leg with progressive dry gangrene - s/p L BKA 04/01 - Site and stump clean and dressing changed today by vascular - Nenao/Angelitan per ID - Remove eliezer in 10 days 2. ESRD on HD, ( S) - Tolerated HD yesterday - Vanco w/ HD - Renal following 3. Acute on Chronic Anemia - Infection/disease process related - Hgb stable, transfuse hgb <7 - Epogen with HD 4. AFib, [id number] 4 - Pt at increase risk of falls and self harm at this time d/t neuropsych deposition, will hold on initiation of coumadin until can reach hemostasis - Rate controlled off AC - Will start coumadin 5mg today, no bridge pt combative 5. Coagulopathy - Hx of DVT - Mixing studies reviewed, no LA 6. CAD - Coreg 3.125mg BID - Crestor 5 HS 7. Thrombocytopenia- Improving - Platelet transfusion 04/01 8. Hypernatremia - Resolved 9. Hypocalcemia - Corrected Ca ~9.8 - Check PTH 10. Liver cirrhosis 11. + stool occult - No overt signs of GI bleed - No EGD/colonoscopy indicated with no active bleeding - H2 BID - Sucralfate BID Visit type - Emergency Visit Emergency Visit: Yes ED Registration Date: 03/14/17 Care time: The patient presented to the Emergency Department on the above date and was hospitalized for further evaluation of their emergent condition. - New Patient This patient is new to me today: No - Critical Care Critical Care patient: No
[2017-04-03] MEDS: WARFARIN NA 5 MG TABLET (UD) PO SCH (17:17)
--- NOTE | 2017-04-03 17:54 | PN ---
Progress Note, Physician History of Present Illness: Agitated. - Current Medication List Current Medications: Active Medications Acetaminophen (Ofirmev Injection -) 1,000 mg IVPB Q6H PRN PRN Reason: FEVER OR PAIN Last Admin: 04/03/17 05:39 Dose: 1,000 mg Amino Acids (Prosource No Carb Liquid Pkt) 30 ml PO BID@0800,1730 [facility] Last Admin: 04/03/17 17:16 Dose: 30 ml Budesonide/Formoterol Fumarate (Symbicort 80/4.5mcg -) 2 puff IH BID [facility] Last Admin: 04/03/17 11:12 Dose: 2 puff Carvedilol (Coreg -) 3.125 mg PO BID [facility] Last Admin: 04/03/17 11:11 Dose: 3.125 mg Diphenhydramine HCl (Benadryl -) 25 mg PO Q6H PRN PRN Reason: FOR ITCHING Docusate Sodium (Colace -) 300 mg PO HS [facility] Last Admin: 04/02/17 22:02 Dose: 300 mg Hydromorphone HCl (Dilaudid Injection -) 2 mg IVPUSH Q3H PRN PRN Reason: PAIN Last Admin: 04/03/17 11:13 Dose: 2 mg Piperacillin/Tazobactam/Dextrose (Zosyn 2.25gm Ivpb (Premix)) 2.25 gm in 50 mls @ 100 mls/hr IVPB Q8H-IV [facility] PRN Reason: Protocol Last Admin: 04/03/17 17:16 Dose: 100 mls/hr Midodrine (Proamatine -) 10 mg PO TID-MID [facility] Last Admin: 04/03/17 17:17 Dose: 10 mg Ondansetron HCl (Zofran Injection) 4 mg IVPUSH Q6H PRN PRN Reason: NAUSEA AND/OR VOMITING Quetiapine Fumarate (Seroquel -) 25 mg PO BID [facility] Last Admin: 04/03/17 11:11 Dose: 25 mg Ranitidine HCl (Zantac Oral Solution -) 150 mg PO DAILY [facility] Last Admin: 04/03/17 11:10 Dose: 150 mg Rosuvastatin Calcium (Crestor -) 5 mg PO HS [facility] Last Admin: 04/02/17 22:03 Dose: 5 mg Sucralfate (Carafate Oral Suspension -) 0.5 gm PO BID [facility] Last Admin: 04/03/17 11:17 Dose: 0.5 gm Warfarin Sodium (Coumadin -) 5 mg PO DAILY@1800 [facility] Last Admin: 04/03/17 17:17 Dose: 5 mg - Objective Vital Signs: Vital Signs Temperature 98.7 F 04/03/17 16:15 Pulse Rate 91 H 04/03/17 16:15 Respiratory Rate 18 04/03/17 16:15 Blood Pressure 138/54 04/03/17 16:15 O2 Sat by Pulse Oximetry (%) 96 04/03/17 10:00 Constitutional: Yes: No Distress, Calm Neck: Yes: Supple Cardiovascular: Yes: Pulse Irregular Respiratory: Yes: Regular, Diminished Gastrointestinal: Yes: Normal Bowel Sounds, Soft Extremities: Yes: Amputation Edema: No Labs: CBC, BMP 04/02/17 16:00 04/03/17 08:30 INR, PTT INR 1.34 (0.82-1.09) H 03/31/17 07:10 Fibrinogen 296.0 mg/dL (238-498) D 03/30/17 06:10 Problem List - Problems (1) Critical lower limb ischemia Code(s): I99.8 - OTHER DISORDER OF CIRCULATORY SYSTEM (2) HLD (hyperlipidemia) Code(s): E78.5 - HYPERLIPIDEMIA, UNSPECIFIED Qualifiers: Hyperlipidemia type: pure hypercholesterolemia Qualified Code(s): E78.00 - Pure hypercholesterolemia, unspecified (3) HTN (hypertension) Code(s): I10 - ESSENTIAL (PRIMARY) HYPERTENSION Qualifiers: Hypertension type: essential hypertension Qualified Code(s): I10 - Essential (primary) hypertension (4) ESRD (end stage renal disease) Code(s): N18.6 - END STAGE RENAL DISEASE (5) Atrial fibrillation Code(s): I48.91 - UNSPECIFIED ATRIAL FIBRILLATION Qualifiers: Atrial fibrillation type: persistent Qualified Code(s): I48.1 - Persistent atrial fibrillation (6) Amputated toe of left foot Code(s): Z89.422 - ACQUIRED ABSENCE OF OTHER LEFT TOE(S) (7) S/P AKA (above knee amputation) Code(s): Z89.619 - ACQUIRED ABSENCE OF UNSPECIFIED LEG ABOVE KNEE Qualifiers: Laterality: right Qualified Code(s): Z89.611 - Acquired absence of right leg above knee (8) Cardiomyopathy Code(s): I42.9 - CARDIOMYOPATHY, UNSPECIFIED Qualifiers: Cardiomyopathy type: unspecified Qualified Code(s): I42.9 - Cardiomyopathy , unspecified (9) Systolic dysfunction, left ventricle Code(s): I51.9 - HEART DISEASE, UNSPECIFIED (10) Anticoagulant long-term use Code(s): Z79.01 - COMPRESSOR TECHNICIAN (CURRENT) USE OF ANTICOAGULANTS (11) Thrombocytopenia Code(s): D69.6 - THROMBOCYTOPENIA, UNSPECIFIED (12) Peripheral arterial disease Code(s): I73.9 - PERIPHERAL VASCULAR DISEASE, UNSPECIFIED Assessment/Plan Echocardiography reveals severely reduced LV systolic function, severe TR, moderate pulmonary HTN, mild AR, severely dilated LA and RA 1. PAD post right AKA and left toe amputation, occluded left SFA post angioplasty/stent, POD #1 left BKA 2. CAD angina pectoris 3. Dilated cardiomyopathy with chronic class I-II NYHA classification LV systolic failure, compensated/ euvolemic 4. Persistent atrial fibrillation [id number] score of 4 off of A/C 5. Severe TR with pulmonary HTN 6. HTN 7. ESRD on HD (T, TH, S) 8. History of DVT 9. Anemia 10. Thrombocytopenia PLAN: 1. Continue Coreg 3.125 bid, hemodynamics permitting 2. Continue Crestor 5 qhs 3. HD as per renal service, replete K 4. Continue coumadin per INR
[2017-04-03] MEDS: DOCUSATE SODIUM 100 MG CAPSULE (FP) PO SCH (21:06)
[2017-04-03] MEDS: ROSUVASTATIN CA 5 MG TABLET (FP) PO SCH (21:08)
[2017-04-04] MEDS: PIPERACILLIN/TAZOB 2.25 GM 2.25 GM/50 ML BAG IVPB SCH ×2 (02:35→11:07)
[2017-04-04] MEDS: HYDROmorphone HCL CARPU-JECT 2 MG/1 ML DISP.SYRIN IVPUSH PRN ×2 (03:09→20:24)
[2017-04-04] MEDS: AMINO ACIDS/PROTEIN HYDROLYS 30 ML LIQUID.PKT PO SCH ×2 (08:05→16:49)
--- NOTE | 2017-04-04 10:25 | PN ---
Progress Note, Physician History of Present Illness: Agitated. - Current Medication List Current Medications: Active Medications Acetaminophen (Ofirmev Injection -) 1,000 mg IVPB Q6H PRN PRN Reason: FEVER OR PAIN Last Admin: 04/03/17 05:39 Dose: 1,000 mg Amino Acids (Prosource No Carb Liquid Pkt) 30 ml PO BID@0800,1730 [facility] Last Admin: 04/03/17 17:16 Dose: 30 ml Budesonide/Formoterol Fumarate (Symbicort 80/4.5mcg -) 2 puff IH BID [facility] Last Admin: 04/03/17 21:09 Dose: 2 puff Carvedilol (Coreg -) 3.125 mg PO BID [facility] Last Admin: 04/03/17 21:06 Dose: 3.125 mg Diphenhydramine HCl (Benadryl -) 25 mg PO Q6H PRN PRN Reason: FOR ITCHING Docusate Sodium (Colace -) 300 mg PO HS [facility] Last Admin: 04/03/17 21:06 Dose: Not Given Epoetin Nash (Procrit -) 20,000 unit IVPUSH ONCE ONE Stop: 04/04/17 06:01 Hydromorphone HCl (Dilaudid Injection -) 2 mg IVPUSH Q3H PRN PRN Reason: PAIN Last Admin: 04/04/17 03:09 Dose: 2 mg Piperacillin/Tazobactam/Dextrose (Zosyn 2.25gm Ivpb (Premix)) 2.25 gm in 50 mls @ 100 mls/hr IVPB Q8H-IV [facility] PRN Reason: Protocol Last Admin: 04/04/17 02:35 Dose: 100 mls/hr Vancomycin HCl 1,000 mg/ (Dextrose) 250 mls @ 166.667 mls/hr IVPB ONCE ONE PRN Reason: Protocol Stop: 04/04/17 07:29 Lorazepam (Ativan Injection -) 1 mg IVPUSH ONCE ONE Stop: 04/04/17 10:06 Midodrine (Proamatine -) 10 mg PO TID-MID [facility] Last Admin: 04/03/17 17:17 Dose: 10 mg Ondansetron HCl (Zofran Injection) 4 mg IVPUSH Q6H PRN PRN Reason: NAUSEA AND/OR VOMITING Quetiapine Fumarate (Seroquel -) 25 mg PO BID [facility] Last Admin: 04/03/17 21:06 Dose: 25 mg Ranitidine HCl (Zantac Oral Solution -) 150 mg PO DAILY [facility] Last Admin: 04/03/17 11:10 Dose: 150 mg Rosuvastatin Calcium (Crestor -) 5 mg PO HS [facility] Last Admin: 04/03/17 21:08 Dose: 5 mg Sucralfate (Carafate Oral Suspension -) 0.5 gm PO BID [facility] Last Admin: 04/03/17 21:05 Dose: 0.5 gm Warfarin Sodium (Coumadin -) 5 mg PO DAILY@1800 [facility] Last Admin: 04/03/17 17:17 Dose: 5 mg - Objective Vital Signs: Vital Signs Temperature 98.1 F 04/04/17 10:00 Pulse Rate 85 04/04/17 10:00 Respiratory Rate 16 04/04/17 10:00 Blood Pressure 124/68 04/04/17 10:00 O2 Sat by Pulse Oximetry (%) 96 04/03/17 21:00 Constitutional: Yes: No Distress, Calm Neck: Yes: Supple Cardiovascular: Yes: Regular Rate and Rhythm Respiratory: Yes: Regular, Diminished Gastrointestinal: Yes: Normal Bowel Sounds, Soft Extremities: Yes: Amputation Edema: No Labs: CBC, BMP 04/02/17 16:00 04/03/17 08:30 INR, PTT INR 1.34 (0.82-1.09) H 03/31/17 07:10 Fibrinogen 296.0 mg/dL (238-498) D 03/30/17 06:10 Problem List - Problems (1) Critical lower limb ischemia Code(s): I99.8 - OTHER DISORDER OF CIRCULATORY SYSTEM (2) HLD (hyperlipidemia) Code(s): E78.5 - HYPERLIPIDEMIA, UNSPECIFIED Qualifiers: Hyperlipidemia type: pure hypercholesterolemia Qualified Code(s): E78.00 - Pure hypercholesterolemia, unspecified (3) HTN (hypertension) Code(s): I10 - ESSENTIAL (PRIMARY) HYPERTENSION Qualifiers: Hypertension type: essential hypertension Qualified Code(s): I10 - Essential (primary) hypertension (4) ESRD (end stage renal disease) Code(s): N18.6 - END STAGE RENAL DISEASE (5) Atrial fibrillation Code(s): I48.91 - UNSPECIFIED ATRIAL FIBRILLATION Qualifiers: Atrial fibrillation type: persistent Qualified Code(s): I48.1 - Persistent atrial fibrillation (6) Amputated toe of left foot Code(s): Z89.422 - ACQUIRED ABSENCE OF OTHER LEFT TOE(S) (7) S/P AKA (above knee amputation) Code(s): Z89.619 - ACQUIRED ABSENCE OF UNSPECIFIED LEG ABOVE KNEE Qualifiers: Laterality: right Qualified Code(s): Z89.611 - Acquired absence of right leg above knee (8) Cardiomyopathy Code(s): I42.9 - CARDIOMYOPATHY, UNSPECIFIED Qualifiers: Cardiomyopathy type: unspecified Qualified Code(s): I42.9 - Cardiomyopathy , unspecified (9) Systolic dysfunction, left ventricle Code(s): I51.9 - HEART DISEASE, UNSPECIFIED (10) Anticoagulant long-term use Code(s): Z79.01 - WATCH ASSEMBLY INSTRUCTOR (CURRENT) USE OF ANTICOAGULANTS (11) Thrombocytopenia Code(s): D69.6 - THROMBOCYTOPENIA, UNSPECIFIED (12) Peripheral arterial disease Code(s): I73.9 - PERIPHERAL VASCULAR DISEASE, UNSPECIFIED Assessment/Plan Echocardiography reveals severely reduced LV systolic function, severe TR, moderate pulmonary HTN, mild AR, severely dilated LA and RA 1. PAD post right AKA and left toe amputation, occluded left SFA post angioplasty/stent, POD #1 left BKA 2. CAD angina pectoris 3. Dilated cardiomyopathy with chronic class I-II NYHA classification LV systolic failure, compensated/ euvolemic 4. Persistent atrial fibrillation [id number] score of 4 off of A/C 5. Severe TR with pulmonary HTN 6. HTN 7. ESRD on HD (T, , S) 8. History of DVT 9. Anemia 10. Thrombocytopenia PLAN: 1. Continue Coreg 3.125 bid, hemodynamics permitting 2. Continue Crestor 5 qhs 3. HD as per renal service, replete K 4. Continue coumadin per INR 5. Complete abx course
[2017-04-04] MEDS ORDERED: LORazepam 2 MG/ML SDV VIAL ONE (10:31)
[2017-04-04] MEDS: RANITIDINE HCL 150 MG/10 ML UNIT-DOSE PO SCH (11:05)
[2017-04-04] MEDS: SUCRALFATE 1 GM/10 ML UNIT DOSE CUPS PO SCH ×2 (11:05→21:08)
[2017-04-04] MEDS: MIDODRINE HCL 5 MG TABLET PO SCH ×3 (11:05→18:45)
[2017-04-04] MEDS: QUEtiapine FUMARATE 25 MG TABLET (FP) PO SCH ×2 (11:06→21:08)
[2017-04-04] MEDS: CARVEDILOL 3.125 MG TABLET (FP) PO SCH ×2 (11:06→21:08)
[2017-04-04] MEDS: BUDESONIDE/FORMETEROL FUMARATE 80/4.5 mcg INHALER IH SCH ×2 (11:07→21:24)
--- NOTE | 2017-04-04 11:21 | PN ---
Progress Note, Physician Chief Complaint: Patient is a 77 year old male with a significant past medical history of ESRD HD , atrial fib, hypertension, DVT, right AKA, Recent Left BKA. He presented to the ED on 03/14/2017 for critical ischemia of left lower extremity. Patient is Azeri speaking. The patient seen in his bed. Seems comfortable. Had Narcotics before. History of Present Illness: The patient is on HD, and next HD scheduled for tomorrow. - Current Medication List Current Medications: Active Medications Acetaminophen (Ofirmev Injection -) 1,000 mg IVPB Q6H PRN PRN Reason: FEVER OR PAIN Last Admin: 04/03/17 05:39 Dose: 1,000 mg Amino Acids (Prosource No Carb Liquid Pkt) 30 ml PO BID@0800,1730 [facility] Last Admin: 04/04/17 08:05 Dose: 30 ml Budesonide/Formoterol Fumarate (Symbicort 80/4.5mcg -) 2 puff IH BID [facility] Last Admin: 04/04/17 11:07 Dose: 2 puff Carvedilol (Coreg -) 3.125 mg PO BID [facility] Last Admin: 04/04/17 11:06 Dose: 3.125 mg Diphenhydramine HCl (Benadryl -) 25 mg PO Q6H PRN PRN Reason: FOR ITCHING Docusate Sodium (Colace -) 300 mg PO HS [facility] Last Admin: 04/03/17 21:06 Dose: Not Given Epoetin Nash (Procrit -) 20,000 unit IVPUSH ONCE ONE Stop: 04/04/17 06:01 Hydromorphone HCl (Dilaudid Injection -) 2 mg IVPUSH Q3H PRN PRN Reason: PAIN Last Admin: 04/04/17 03:09 Dose: 2 mg Piperacillin/Tazobactam/Dextrose (Zosyn 2.25gm Ivpb (Premix)) 2.25 gm in 50 mls @ 100 mls/hr IVPB Q8H-IV [facility] PRN Reason: Protocol Last Admin: 04/04/17 11:07 Dose: 100 mls/hr Vancomycin HCl 1,000 mg/ (Dextrose) 250 mls @ 166.667 mls/hr IVPB ONCE ONE PRN Reason: Protocol Stop: 04/04/17 07:29 Midodrine (Proamatine -) 10 mg PO TID-MID [facility] Last Admin: 04/04/17 11:05 Dose: 10 mg Ondansetron HCl (Zofran Injection) 4 mg IVPUSH Q6H PRN PRN Reason: NAUSEA AND/OR VOMITING Quetiapine Fumarate (Seroquel -) 25 mg PO BID [facility] Last Admin: 04/04/17 11:06 Dose: 25 mg Ranitidine HCl (Zantac Oral Solution -) 150 mg PO DAILY [facility] Last Admin: 04/04/17 11:05 Dose: 150 mg Rosuvastatin Calcium (Crestor -) 5 mg PO HS [facility] Last Admin: 04/03/17 21:08 Dose: 5 mg Sucralfate (Carafate Oral Suspension -) 0.5 gm PO BID [facility] Last Admin: 04/04/17 11:05 Dose: 0.5 gm Warfarin Sodium (Coumadin -) 5 mg PO DAILY@1800 [facility] Last Admin: 04/03/17 17:17 Dose: 5 mg - Objective Vital Signs: Vital Signs Temperature 98.1 F 04/04/17 10:00 Pulse Rate 85 04/04/17 10:00 Respiratory Rate 16 04/04/17 10:00 Blood Pressure 124/68 04/04/17 10:00 O2 Sat by Pulse Oximetry (%) 96 04/03/17 21:00 Constitutional: Yes: Mild Distress Eyes: Yes: Conjunctiva Clear HENT: Yes: Atraumatic, Normocephalic Cardiovascular: Yes: S1, S2 Respiratory: Yes: CTA Bilaterally, Poor Air Entry Gastrointestinal: Yes: Normal Bowel Sounds, Soft Extremities: Yes: Amputation (Right AKA, Left BKA) Labs: CBC, BMP 04/02/17 16:00 04/03/17 08:30 INR, PTT INR 1.34 (0.82-1.09) H 03/31/17 07:10 Fibrinogen 296.0 mg/dL (238-498) D 03/30/17 06:10 Problem List - Problems (1) Open wnd foot-complicated Code(s): S91.309A - UNSPECIFIED OPEN WOUND, UNSPECIFIED FOOT, INITIAL ENCOUNTER (2) HTN (hypertension) Code(s): I10 - ESSENTIAL (PRIMARY) HYPERTENSION Qualifiers: Hypertension type: essential hypertension Qualified Code(s): I10 - Essential (primary) hypertension (3) ESRD (end stage renal disease) Code(s): N18.6 - END STAGE RENAL DISEASE (4) Anemia Code(s): D64.9 - ANEMIA, UNSPECIFIED (5) Atrial fibrillation Code(s): I48.91 - UNSPECIFIED ATRIAL FIBRILLATION Qualifiers: Atrial fibrillation type: persistent Qualified Code(s): I48.1 - Persistent atrial fibrillation (6) Amputated toe of left foot Code(s): Z89.422 - ACQUIRED ABSENCE OF OTHER LEFT TOE(S) (7) S/P AKA (above knee amputation) Code(s): Z89.619 - ACQUIRED ABSENCE OF UNSPECIFIED LEG ABOVE KNEE Qualifiers: Laterality: right Qualified Code(s): Z89.611 - Acquired absence of right leg above knee Assessment/Plan Patient is a 77 year old male with a significant past medical history of ESRD HD , Atrial fib, hypertension, DVT, right AKA, and recent left BKA. Patient is Azeri speaking only The patient schedule for HD tomorrow. Emily San MD
[2017-04-04] MEDS ORDERED: VANCOMYCIN 1,000 MG in DEXTROSE 5%-WATER - 250 ML IVPB ONE (13:30)
[2017-04-04] MEDS ORDERED: EPOETIN ALFA 20,000 UNIT/1 ML VIAL IVPUSH ONE (13:30)
[2017-04-04 13:37] LABS: BASOPHIL 0.9 % (0-2.0); EOSINOPHIL 0.5 % (0-4.5); MCH 28.6 pg (25.7-33.7); MCHC 31.4 g/dl (32.0-35.9); MEAN PLT VOLUME 8.1 fl (7.5-11.1); NEUTROPHILS 84.8 % (42.8-82.8); PLATELET COUNT 93 K/MM3 (134-434); RDW 22.4 % (11.9-15.9); WHITE BLOOD COUNT 8.8 K/mm3 (4.0-10.0)
[2017-04-04 14:02] LABS: ALBUMIN 1.9 g/dl (3.4-5.0); ANION GAP 14 (8-16); BILIRUBIN,TOTAL 0.6 mg/dL (0.2-1.0); CALCIUM 7.6 mg/dL (8.5-10.1); CO2 28 mmol/L (21-32); CREATININE 5.8 mg/dL (0.7-1.3); GLUCOSE,RANDOM 95 mg/dL (74-106); PHOSPHOROUS 2.3 mg/dL (2.5-4.9); SGOT/AST 13 U/L (15-37); SGPT/ALT 9 U/L (12-78); TOT PROT 4.7 g/dl (6.4-8.2)
[2017-04-04 14:03] LABS: ALK PHOS 78 U/L (45-117)
[2017-04-04 14:09] LABS: INR 1.59 (0.82-1.09)
[2017-04-04] MEDS ORDERED: VANCOMYCIN 500 MG in DEXTROSE 5%-WATER - 100 ML IVPB ONE (14:30)
--- NOTE | 2017-04-04 15:13 | PN ---
Physical Exam: SUBJECTIVE: Patient seen and examined. Agitated, in HD. Requiring restraints OBJECTIVE: Vital Signs Period Temp Pulse Resp BP Sys/Coleman Pulse Ox Last 24 Hr 97.4 F-98.7 F 71-97 16-20 110-138/54-78 96 PE Neuro: awake, confused, oriented to son, person, cn 2-12intact Pulm: CTA anteriorly CV: s1 s2 irregular rate + 2/6 systolic murmur Abd: soft, nt, nd +bs Ext: R AKA amputation, left BKA with brace dressing cdi, R AVF + thrill + bruit CBCD WBC 8.8 K/mm3 (4.0-10.0) D 04/04/17 13:27 RBC 3.37 M/mm3 (4.00-5.60) L 04/04/17 13:27 Hgb 9.6 GM/dL (11.7-16.9) L 04/04/17 13:27 Hct 30.7 % (35.4-49) L 04/04/17 13:27 MCV 91.0 fl (80-96) 04/04/17 13:27 MCHC 31.4 g/dl (32.0-35.9) L 04/04/17 13:27 RDW 22.4 % (11.9-15.9) H 04/04/17 13:27 Plt Count 93 K/MM3 (134-434) L 04/04/17 13:27 MPV 8.1 fl (7.5-11.1) 04/04/17 13:27 CMP Sodium 149 mmol/L (136-145) H 04/04/17 13:21 Potassium 3.0 mmol/L (3.5-5.1) L 04/04/17 13:21 Chloride 107 mmol/L (98-107) 04/04/17 13:21 Carbon Dioxide 28 mmol/L (21-32) 04/04/17 13:21 Anion Gap 14 (8-16) 04/04/17 13:21 BUN 31 mg/dL (7-18) H D 04/04/17 13:21 Creatinine 5.8 mg/dL (0.7-1.3) H D 04/04/17 13:21 Creat Clearance w eGFR 9.55 (>60) 04/04/17 13:21 Calcium 7.6 mg/dL (8.5-10.1) L 04/04/17 13:21 Total Bilirubin 0.6 mg/dL (0.2-1.0) 04/04/17 13:21 AST 13 U/L (15-37) L D 04/04/17 13:21 ALT 9 U/L (12-78) L 04/04/17 13:21 Alkaline Phosphatase 78 U/L (45-117) 04/04/17 13:21 Total Protein 4.7 g/dl (6.4-8.2) L 04/04/17 13:21 Albumin 1.9 g/dl (3.4-5.0) L 04/04/17 13:21 Laboratory Tests 04/04/17 13:21 PT with INR 18.00 H INR 1.59 H Active Medications Generic Name Dose Route Start Last Admin Trade Name Freq PRN Reason Stop Dose Admin Acetaminophen 1,000 mg 04/01/17 17:31 04/03/17 05:39 Ofirmev Injection - IVPB 1,000 mg Q6H PRN Administration FEVER OR PAIN Amino Acids 30 ml 04/02/17 11:00 04/04/17 08:05 Prosource No Carb Liquid Pkt PO 30 ml BID@0800,1730 [facility] Administration Budesonide/Formoterol Fumarate 2 puff 04/01/17 22:00 04/04/17 11:07 Symbicort 80/4.5mcg - IH 2 puff BID [facility] Administration Carvedilol 3.125 mg 04/01/17 22:00 04/04/17 11:06 Coreg - PO 3.125 mg BID [facility] Administration Diphenhydramine HCl 25 mg 04/01/17 17:31 Benadryl - PO Q6H PRN FOR ITCHING Docusate Sodium 300 mg 04/01/17 22:00 04/03/17 21:06 Colace - PO Not Given HS [facility] Epoetin Nash 20,000 unit 04/05/17 11:25 Procrit - SQ 04/05/17 11:26 ONCE ONE Hydromorphone HCl 2 mg 04/02/17 10:10 04/04/17 03:09 Dilaudid Injection - IVPUSH 2 mg Q3H PRN Administration PAIN Piperacillin/Tazobactam/Dextrose 2.25 gm in 50 mls @ 100 mls/hr 04/01/17 18: 00 04/04/17 11:07 Zosyn 2.25gm Ivpb (Premix) IVPB 100 mls/hr Q8H-IV [facility] Administration Protocol Vancomycin HCl 500 mg/ 100 mls @ 100 mls/hr 04/04/17 14:30 04/04/17 14:56 Dextrose IVPB 04/04/17 15:29 100 mls/hr ONCE ONE Administration Protocol Midodrine 10 mg 04/01/17 18:00 04/04/17 14:40 Proamatine - PO Not Given TID-MID [facility] Ondansetron HCl 4 mg 04/01/17 17:31 Zofran Injection IVPUSH Q6H PRN NAUSEA AND/OR VOMITING Quetiapine Fumarate 25 mg 04/02/17 10:50 04/04/17 11:06 Seroquel - PO 25 mg BID [facility] Administration Ranitidine HCl 150 mg 04/02/17 10:00 04/04/17 11:05 Zantac Oral Solution - PO 150 mg DAILY [facility] Administration Rosuvastatin Calcium 5 mg 04/01/17 22:00 04/03/17 21:08 Crestor - PO 5 mg HS [facility] Administration Sucralfate 0.5 gm 04/01/17 22:00 04/04/17 11:05 Carafate Oral Suspension - PO 0.5 gm BID [facility] Administration Warfarin Sodium 5 mg 04/03/17 18:00 04/03/17 17:17 Coumadin - PO 5 mg DAILY@1800 [facility] Administration Imaging: - ECHO: severely reduced LV systolic function, severe TR, moderate pulmonary HTN , mild AR, severely dilated LA and RA Assessment: 77 year old male with PMHX significant for ESRD HD (,,S) HTN, DVT , PAD, vasculopathy s/p R AKA, s/p L SFA angioplasty and stent placement and 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 Plan: 1. LLE ischemic leg with progressive dry gangrene - s/p L BKA 04/01 - Site and stump clean and dressing changed yesterday - Stop vanco/zosyn today - Monitor off abx - Remove eliezer in 9 days - ID seeing 2. ESRD on HD, (T TH S) - In HD, HD again tomorrow - Vanco w/ HD - Renal following 3. Acute on Chronic Anemia - Infection/disease process related - Hgb stable, transfuse hgb <7 - Epogen with HD 4. AFib, [id number] 4 - Coumadin 5mg today, no bridge pt combative - Daily INR - Rate controlled off AC 5. Coagulopathy - Hx of DVT - Mixing studies reviewed, no LA 6. CAD - Coreg 3.125mg BID - Crestor 5 HS 7. Thrombocytopenia- Improving - Platelet transfusion 04/01 8. Hypernatremia - Resolved 9. Hypocalcemia - Corrected Ca ~9.8 - Check PTH 10. Liver cirrhosis 11. + stool occult - No overt signs of GI bleed - No EGD/colonoscopy indicated with no active bleeding - H2 BID - Sucralfate BID 12. Agitation, delirium - Psych consulted - Seroquel 25mg BID - Ativan x1 with positive effect Visit type - Emergency Visit Emergency Visit: Yes ED Registration Date: 03/14/17 Care time: The patient presented to the Emergency Department on the above date and was hospitalized for further evaluation of their emergent condition. - New Patient This patient is new to me today: No - Critical Care Critical Care patient: No
--- NOTE | 2017-04-04 15:16 | PN ---
Progress Note, Physician History of Present Illness: patient stable post op bka being dialysed - Current Medication List Current Medications: Active Medications Acetaminophen (Ofirmev Injection -) 1,000 mg IVPB Q6H PRN PRN Reason: FEVER OR PAIN Last Admin: 04/03/17 05:39 Dose: 1,000 mg Amino Acids (Prosource No Carb Liquid Pkt) 30 ml PO BID@0800,1730 [facility] Last Admin: 04/04/17 08:05 Dose: 30 ml Budesonide/Formoterol Fumarate (Symbicort 80/4.5mcg -) 2 puff IH BID [facility] Last Admin: 04/04/17 11:07 Dose: 2 puff Carvedilol (Coreg -) 3.125 mg PO BID [facility] Last Admin: 04/04/17 11:06 Dose: 3.125 mg Diphenhydramine HCl (Benadryl -) 25 mg PO Q6H PRN PRN Reason: FOR ITCHING Docusate Sodium (Colace -) 300 mg PO [facility] Last Admin: 04/03/17 21:06 Dose: Not Given Epoetin Nash (Procrit -) 20,000 unit SQ ONCE ONE Stop: 04/05/17 11:26 Hydromorphone HCl (Dilaudid Injection -) 2 mg IVPUSH Q3H PRN PRN Reason: PAIN Last Admin: 04/04/17 03:09 Dose: 2 mg Midodrine (Proamatine -) 10 mg PO TID-MID [facility] Last Admin: 04/04/17 14:40 Dose: Not Given Ondansetron HCl (Zofran Injection) 4 mg IVPUSH Q6H PRN PRN Reason: NAUSEA AND/OR VOMITING Quetiapine Fumarate (Seroquel -) 25 mg PO BID [facility] Last Admin: 04/04/17 11:06 Dose: 25 mg Ranitidine HCl (Zantac Oral Solution -) 150 mg PO DAILY [facility] Last Admin: 04/04/17 11:05 Dose: 150 mg Rosuvastatin Calcium (Crestor -) 5 mg PO HS [facility] Last Admin: 04/03/17 21:08 Dose: 5 mg Sucralfate (Carafate Oral Suspension -) 0.5 gm PO BID [facility] Last Admin: 04/04/17 11:05 Dose: 0.5 gm Warfarin Sodium (Coumadin -) 5 mg PO DAILY@1800 [facility] Last Admin: 04/03/17 17:17 Dose: 5 mg - Objective Vital Signs: Vital Signs Temperature 98.4 F 04/04/17 12:45 Pulse Rate 94 H 04/04/17 14:50 Respiratory Rate 18 04/04/17 14:50 Blood Pressure 117/70 04/04/17 14:50 O2 Sat by Pulse Oximetry (%) 96 04/03/17 21:00 Constitutional: Yes: No Distress, Calm Cardiovascular: Yes: Regular Rate and Rhythm Respiratory: Yes: Regular, CTA Bilaterally Gastrointestinal: Yes: Normal Bowel Sounds, Soft Musculoskeletal: Yes: Other Extremities: Yes: Other Neurological: Yes: Alert Psychiatric: Yes: Alert Labs: CBC, BMP 04/04/17 13:27 04/04/17 13:21 INR, PTT INR 1.59 (0.82-1.09) H 04/04/17 13:21 Fibrinogen 296.0 mg/dL (238-498) D 03/30/17 06:10 Assessment/Plan Problem List - Problems (1) Anemia Code(s): D64.9 - ANEMIA, UNSPECIFIED (2) Critical lower limb ischemia Code(s): I99.8 - OTHER DISORDER OF CIRCULATORY SYSTEM (3) ESRD (end stage renal disease) Code(s): N18.6 - END STAGE RENAL DISEASE (4) HTN (hypertension) Code(s): I10 - ESSENTIAL (PRIMARY) HYPERTENSION (5) Open wnd foot-complicated Code(s): S91.309A - UNSPECIFIED OPEN WOUND, UNSPECIFIED FOOT, INITIAL ENCOUNTER cardiomyopathy gangrene of the foot plan will stop all abx will watch post abx rest as per renal and surgery
--- NOTE | 2017-04-04 16:45 | CON.PSY ---
Psychiatry Consult Chief Complaint: 77 yr old [place] male with a long history of Chronic Psychaitric and Medical conditions, ESRD on Dialysis. Reports of acute agitation ang aggressive behaviousd on the uniy. Refusing po meds. Symptoms: reports: Disorganized/Disruptive Thoughts, Hallucinations, Paranoia - Previous Psychiatric Treatment Outpatient: More than 6 mos ago Inpatient: 2 or more prior admissions - Previous Substance Abuse Treatment Outpatient: None Inpatient: None - Reason for Previous Treatment Reason for Previous Treatment: Psychotic Episode - Current Medications Current Medications: Active Medications Acetaminophen (Ofirmev Injection -) 1,000 mg IVPB Q6H PRN PRN Reason: FEVER OR PAIN Last Admin: 04/03/17 05:39 Dose: 1,000 mg Amino Acids (Prosource No Carb Liquid Pkt) 30 ml PO BID@0800,1730 [facility] Last Admin: 04/04/17 08:05 Dose: 30 ml Budesonide/Formoterol Fumarate (Symbicort 80/4.5mcg -) 2 puff IH BID [facility] Last Admin: 04/04/17 11:07 Dose: 2 puff Carvedilol (Coreg -) 3.125 mg PO BID [facility] Last Admin: 04/04/17 11:06 Dose: 3.125 mg Diphenhydramine HCl (Benadryl -) 25 mg PO Q6H PRN PRN Reason: FOR ITCHING Docusate Sodium (Colace -) 300 mg PO HS [facility] Last Admin: 04/03/17 21:06 Dose: Not Given Epoetin Nash (Procrit -) 20,000 unit SQ ONCE ONE Stop: 04/05/17 11:26 Hydromorphone HCl (Dilaudid Injection -) 2 mg IVPUSH Q3H PRN PRN Reason: PAIN Last Admin: 04/04/17 03:09 Dose: 2 mg Midodrine (Proamatine -) 10 mg PO TID-MID [facility] Last Admin: 04/04/17 14:40 Dose: Not Given Ondansetron HCl (Zofran Injection) 4 mg IVPUSH Q6H PRN PRN Reason: NAUSEA AND/OR VOMITING Quetiapine Fumarate (Seroquel -) 25 mg PO BID [facility] Last Admin: 04/04/17 11:06 Dose: 25 mg Ranitidine HCl (Zantac Oral Solution -) 150 mg PO DAILY [facility] Last Admin: 04/04/17 11:05 Dose: 150 mg Rosuvastatin Calcium (Crestor -) 5 mg PO HS [facility] Last Admin: 04/03/17 21:08 Dose: 5 mg Sucralfate (Carafate Oral Suspension -) 0.5 gm PO BID [facility] Last Admin: 04/04/17 11:05 Dose: 0.5 gm Warfarin Sodium (Coumadin -) 5 mg PO DAILY@1800 [facility] Last Admin: 04/03/17 17:17 Dose: 5 mg - Allergies Allergies: Allergies Allergy/AdvReac Type Severity Reaction Status Date / Time No Known Allergies Allergy Verified 03/14/17 01:05 - Current Living Status Usual Living Arrangement: With Child - Current Mental Status Evaluation Appearance: Disheveled Attitude: Belligerent - Affect Affect: Constrictive Appropriateness: Not Appropriate - Mood Mood: Angry - Speech/Language Expressive: Delayed - Psychomotor Activity Psychomotor Activity: Hyperactive - Thought Process Thought Process: Loosening of Associations - Thought Content Type: Auditory - Self Perception Self Perception: Depersonalization - Cognition Attention: Diminished Memory, Short Term: 1/3 Memory, Remote with Promptin/3 - Concentration Serial Sevens Intact: No Simple Calculations Intact: No - Abstraction Proverb Interpretation: Impaired Judgement: Severely Impaired - Insight Insight: Impaired - Impulse Control Impulse Control: Severly Impaired - Suicidal Ideation Suicidal Ideation: No - Homicidal Ideation Homicidal Ideation: No Assessment/Plan will try Haldol IM on a PRN basis for maintnance of Behaviour.
[2017-04-04] MEDS: WARFARIN NA 5 MG TABLET (UD) PO SCH (18:45)
[2017-04-04] MEDS: DOCUSATE SODIUM 100 MG CAPSULE (FP) PO SCH (21:07)
[2017-04-04] MEDS: ROSUVASTATIN CA 5 MG TABLET (FP) PO SCH (21:08)
--- NOTE | 2017-04-04 22:33 | PN ---
Progress Note (short form) - Note Progress Note: PAtient seen and examined Sleeping but rousable. Agitated Meds reviewed. AFVSS General: Supine in bed, cachectic, posy restraints Extremities: Pallor, no icterus. Chest:breathing mask, mildly tachpneic CVS: S1, S2, no gallop or murmur. Abdomen: Soft, no organomegaly, no masses. Neuro: Non-focal, disoriented. Assessment. 77 y/o ESRD/cirrhosis/PVD/CAD Ischemic leg with progressive dry gangrene - s/p L BKA 04/01 2. ESRD on HD, (T TH S) 3. Acute on Chronic disease on procrit per renal 4. AFib, [id number] 4 - Coumadin 5mg --daily INR 5. - Hx of DVT - Mixing studies reviewed, no LA 7. Thrombocytopenia- Improving mild, stable
[2017-04-05 07:28] LABS: BASOPHIL 0.6 % (0-2.0); MCH 28.5 pg (25.7-33.7); MCHC 30.9 g/dl (32.0-35.9); MEAN CELL VOLUME 92.3 fl (80-96); NEUTROPHILS 85.2 % (42.8-82.8); PLATELET COUNT 75 K/MM3 (134-434); RDW 22.9 % (11.9-15.9)
[2017-04-05 07:49] LABS: ANION GAP 10 (8-16); CALCIUM 7.6 mg/dL (8.5-10.1); CO2 31 mmol/L (21-32); CREATININE 5.2 mg/dL (0.7-1.3); GLUCOSE,RANDOM 87 mg/dL (74-106)
[2017-04-05] MEDS: AMINO ACIDS/PROTEIN HYDROLYS 30 ML LIQUID.PKT PO SCH ×2 (08:40→17:57)
--- NOTE | 2017-04-05 09:22 | PN ---
Progress Note (short form) - Note Progress Note: Agitated and confused. Requiring chemimal and physical restraints. Breathing non-labored. Intake & Output 04/02/17 04/03/17 04/04/17 04/05/17 23:59 23:59 23:59 23:59 Intake Total 850 2150 130 Balance 850 2150 130 Weight 144 lb 3.2 oz 132 lb 7 oz 131 lb 9 oz 125 lb 5 oz Last Vital Signs Temp Pulse Resp BP Pulse Ox 98.2 F 82 20 93/62 96 04/05/17 06:37 04/05/17 06:37 04/05/17 06:37 04/05/17 06:37 04/03/17 21:00 Active Medications Acetaminophen (Ofirmev Injection -) 1,000 mg IVPB Q6H PRN PRN Reason: FEVER OR PAIN Last Admin: 04/03/17 05:39 Dose: 1,000 mg Amino Acids (Prosource No Carb Liquid Pkt) 30 ml PO BID@0800,1730 [facility] Last Admin: 04/05/17 08:40 Dose: 30 ml Budesonide/Formoterol Fumarate (Symbicort 80/4.5mcg -) 2 puff IH BID [facility] Last Admin: 04/04/17 21:24 Dose: Not Given Carvedilol (Coreg -) 3.125 mg PO BID [facility] Last Admin: 04/04/17 21:08 Dose: 3.125 mg Diphenhydramine HCl (Benadryl -) 25 mg PO Q6H PRN PRN Reason: FOR ITCHING Docusate Sodium (Colace -) 300 mg PO HS [facility] Last Admin: 04/04/17 21:07 Dose: Not Given Epoetin Nash (Procrit -) 20,000 unit SQ ONCE ONE Stop: 04/05/17 11:26 Haloperidol (Haldol Injection (Fast Acting) -) 2 mg IM Q4H PRN PRN Reason: AGITATION Hydromorphone HCl (Dilaudid Injection -) 2 mg IVPUSH Q3H PRN PRN Reason: PAIN Last Admin: 04/04/17 20:24 Dose: 2 mg Midodrine (Proamatine -) 10 mg PO TID-MID [facility] Last Admin: 04/04/17 18:45 Dose: 10 mg Ondansetron HCl (Zofran Injection) 4 mg IVPUSH Q6H PRN PRN Reason: NAUSEA AND/OR VOMITING Potassium Chloride (K-Dur -) 40 meq PO ONCE ONE Stop: 04/05/17 09:46 Quetiapine Fumarate (Seroquel -) 25 mg PO BID [facility] Last Admin: 04/04/17 21:08 Dose: 25 mg Ranitidine HCl (Zantac Oral Solution -) 150 mg PO DAILY [facility] Last Admin: 04/04/17 11:05 Dose: 150 mg Rosuvastatin Calcium (Crestor -) 5 mg PO HS [facility] Last Admin: 04/04/17 21:08 Dose: 5 mg Sucralfate (Carafate Oral Suspension -) 0.5 gm PO BID [facility] Last Admin: 04/04/17 21:08 Dose: 0.5 gm Warfarin Sodium (Coumadin -) 5 mg PO DAILY@1800 [facility] Last Admin: 04/04/17 18:45 Dose: 5 mg Constitutional: Yes: Confused, NAD Eyes: Yes: Conjunctiva Clear, EOM Intact HENT: Yes: Atraumatic, Normocephalic Neck: Yes: Supple, Trachea Midline Cardiovascular: Yes: Regular Rate and Rhythm Respiratory: Yes: few basilar Rhonchi ...Clubbing: No Gastrointestinal: Yes: Normal Bowel Sounds, Soft. No: Tenderness Extremities: Yes: Bilateral LE amputation Edema: No Neurological: Yes: Confused Labs: Laboratory Results - last 24 hr 04/04/17 04/04/17 04/04/17 13:21 13:21 13:21 WBC Corrected WBC (auto) RBC Hgb Hct MCV MCH MCHC RDW Plt Count MPV Neutrophils % Lymphocytes % Monocytes % Eosinophils % Basophils % PT with INR 18.00 H INR 1.59 H Sodium 149 H Potassium 3.0 L Chloride 107 Carbon Dioxide 28 Anion Gap 14 BUN 31 H D Creatinine 5.8 H D Creat Clearance w eGFR 9.55 Random Glucose 95 D Calcium 7.6 L Phosphorus 2.3 L D Total Bilirubin 0.6 AST 13 L D ALT 9 L Alkaline Phosphatase 78 Total Protein 4.7 L Albumin 1.9 L Random Vancomycin 17.199 Blood Type Antibody Screen 04/04/17 04/04/17 04/04/17 13:21 13:21 13:25 WBC Cancelled Corrected WBC (auto) Cancelled RBC Cancelled Hgb Cancelled Hct Cancelled MCV Cancelled MCH Cancelled MCHC Cancelled RDW Cancelled Plt Count Cancelled MPV Cancelled Neutrophils % Lymphocytes % Monocytes % Eosinophils % Basophils % PT with INR INR Sodium Potassium Chloride Carbon Dioxide Anion Gap BUN Creatinine Creat Clearance w eGFR Random Glucose Calcium Phosphorus Cancelled Total Bilirubin AST ALT Alkaline Phosphatase Total Protein Albumin Random Vancomycin Blood Type O POSITIVE Antibody Screen Negative 04/04/17 04/05/17 04/05/17 13:27 06:00 06:00 WBC 8.8 D 8.0 Corrected WBC (auto) RBC 3.37 L 3.60 L Hgb 9.6 L 10.2 L Hct 30.7 L 33.2 L MCV 91.0 92.3 MCH 28.6 28.5 MCHC 31.4 L 30.9 L RDW 22.4 H 22.9 H Plt Count 93 L 75 L MPV 8.1 8.0 Neutrophils % 84.8 H 85.2 H Lymphocytes % 6.5 L D 6.7 L Monocytes % 7.3 6.5 Eosinophils % 0.5 1.0 D Basophils % 0.9 0.6 PT with INR INR Sodium 149 H Potassium 2.7 L* Chloride 108 H Carbon Dioxide 31 Anion Gap 10 BUN 29 H Creatinine 5.2 H Creat Clearance w eGFR Random Glucose 87 Calcium 7.6 L Phosphorus Total Bilirubin AST ALT Alkaline Phosphatase Total Protein Albumin Random Vancomycin Blood Type Antibody Screen Problem List - Problems (1) Open wnd foot-complicated Code(s): S91.309A - UNSPECIFIED OPEN WOUND, UNSPECIFIED FOOT, INITIAL ENCOUNTER (2) Peripheral arterial disease Code(s): I73.9 - PERIPHERAL VASCULAR DISEASE, UNSPECIFIED (3) Anemia Code(s): D64.9 - ANEMIA, UNSPECIFIED (4) Atrial fibrillation Code(s): I48.91 - UNSPECIFIED ATRIAL FIBRILLATION Qualifiers: Atrial fibrillation type: persistent Qualified Code(s): I48.1 - Persistent atrial fibrillation; I48.1 - Persistent atrial fibrillation; I48.1 - Persistent atrial fibrillation; I48.1 - Persistent atrial fibrillation (5) ESRD (end stage renal disease) Code(s): N18.6 - END STAGE RENAL DISEASE (6) HLD (hyperlipidemia) Code(s): E78.5 - HYPERLIPIDEMIA, UNSPECIFIED Qualifiers: Hyperlipidemia type: pure hypercholesterolemia Qualified Code(s): E78.00 - Pure hypercholesterolemia, unspecified; E78.00 - Pure hypercholesterolemia, unspecified; E78.00 - Pure hypercholesterolemia, unspecified; E78.0 - Pure hypercholesterolemia (7) HTN (hypertension) Code(s): I10 - ESSENTIAL (PRIMARY) HYPERTENSION Qualifiers: Hypertension type: essential hypertension Qualified Code(s): I10 - Essential (primary) hypertension; I10 - Essential (primary) hypertension; I10 - Essential (primary) hypertension (8) S/P AKA (above knee amputation) Code(s): Z89.619 - ACQUIRED ABSENCE OF UNSPECIFIED LEG ABOVE KNEE Qualifiers: Laterality: right Qualified Code(s): Z89.611 - Acquired absence of right leg above knee; Z89.611 - Acquired absence of right leg above knee; Z89.611 - Acquired absence of right leg above knee (9) Systolic dysfunction, left ventricle Code(s): I51.9 - HEART DISEASE, UNSPECIFIED Assessment/Plan Foot Wound Infection Peripheral Artery Disease ESRD on HD Atrial Fibrillation Severe LV Systolic Dysfunction Pulmonary HTN Supratherapeutic INR Thrombocytopenia AAA Liver Cirrhosis 2 cm right mid lung zone irregular density along the fissure: (?) inflammatory versus mass s/p R AKA Pain control Local wound care per surgery HD per Renal Normal transfusion thresholds O2 as needed AC Will need close short term outpatient CT follow up of lung nodule. Dr Braun
[2017-04-05] MEDS ORDERED: POTASSIUM CHLORIDE TABS 20 MEQ TABLET.ER (FP) PO ONE (09:45)
[2017-04-05] MEDS ORDERED: PT OWN MED DRAWER 7, Y5N ONE (10:14)
[2017-04-05] MEDS: SUCRALFATE 1 GM/10 ML UNIT DOSE CUPS PO SCH ×2 (10:17→21:42)
[2017-04-05] MEDS: CARVEDILOL 3.125 MG TABLET (FP) PO SCH ×2 (10:18→21:42)
[2017-04-05] MEDS: BUDESONIDE/FORMETEROL FUMARATE 80/4.5 mcg INHALER IH SCH ×2 (10:19→21:43)
[2017-04-05] MEDS: MIDODRINE HCL 5 MG TABLET PO SCH ×3 (10:19→17:57)
[2017-04-05] MEDS: QUEtiapine FUMARATE 25 MG TABLET (FP) PO SCH ×2 (10:19→21:42)
[2017-04-05] MEDS: RANITIDINE HCL 150 MG/10 ML UNIT-DOSE PO SCH (10:19)
--- NOTE | 2017-04-05 10:41 | PN ---
Progress Note (short form) - Note Progress Note: Renal follow up for ESRD on HD Pt seen and examined at the bedside awake and alert s/p dialysis yesterday pt continues to have periods of agitation no overnight events no CP, SOb, abd pain, N/V/D Vital Signs Temperature 98.2 F 04/05/17 06:37 Pulse Rate 82 04/05/17 06:37 Respiratory Rate 20 04/05/17 06:37 Blood Pressure 93/62 04/05/17 06:37 O2 Sat by Pulse Oximetry (%) 96 04/03/17 21:00 Intake & Output 04/02/17 04/03/17 04/04/17 04/05/17 23:59 23:59 23:59 23:59 Intake Total 850 2150 130 Balance 850 2150 130 Weight 65.408 kg 60.073 kg 59.676 kg 56.841 kg Agitated RRR CTA (anterior) Left leg in brace s/p amputation CBC, BMP 04/02/17 05:45 04/02/17 05:45 Current Medications Acetaminophen (Ofirmev Injection -) 1,000 mg IVPB Q6H PRN PRN Reason: FEVER OR PAIN Budesonide/Formoterol Fumarate (Symbicort 80/4.5mcg -) 2 puff IH BID [facility] Last Admin: 04/01/17 21:52 Dose: 2 puff Carvedilol (Coreg -) 3.125 mg PO BID [facility] Last Admin: 04/01/17 21:51 Dose: 3.125 mg Chlorhexidine Gluconate (Hibiclens For Decolonization -) 1 applic TP HS [facility] Last Admin: 04/01/17 21:51 Dose: 1 applic Collagenase (Santyl -) 1 applic TP DAILY [facility] Diphenhydramine HCl (Benadryl -) 25 mg PO Q6H PRN PRN Reason: FOR ITCHING Docusate Sodium (Colace -) 300 mg PO HS [facility] Last Admin: 04/01/17 21:50 Dose: 300 mg Epoetin Nash (Epogen -) 20,000 units IVPUSH ONCE ONE Stop: 03/31/17 16:15 Last Admin: 03/31/17 17:47 Dose: Not Given Epoetin Nash (Epogen -) 20,000 units IVPUSH ONCE ONE Stop: 04/02/17 06:01 Hydromorphone HCl (Dilaudid Injection -) 1 mg IVPUSH Q4H PRN PRN Reason: PAIN Last Admin: 04/02/17 08:21 Dose: 1 mg Sodium Chloride (Normal Saline -) 1,000 mls @ 50 mls/hr IV ASDIR [facility] Stop: 04/02/17 09:46 Last Admin: 04/01/17 18:30 Dose: 50 mls/hr Vancomycin HCl 1,000 mg/ (Dextrose) 250 mls @ 250 mls/hr IVPB ONCE ONE PRN Reason: Protocol Stop: 04/01/17 18:30 Piperacillin/Tazobactam/Dextrose (Zosyn 2.25gm Ivpb (Premix)) 2.25 gm in 50 mls @ 100 mls/hr IVPB Q8H-IV [facility] PRN Reason: Protocol Last Admin: 04/02/17 02:00 Dose: 100 mls/hr Midodrine (Proamatine -) 10 mg PO TID-MID [facility] Last Admin: 04/01/17 18:31 Dose: Not Given Mupirocin (Bactroban Ointment (For Decolonization) -) 1 applic NS BID [facility] Stop: 04/05/17 21:59 Last Admin: 04/01/17 21:49 Dose: 1 applic Ondansetron HCl (Zofran Injection) 4 mg IVPUSH Q6H PRN PRN Reason: NAUSEA AND/OR VOMITING Quetiapine Fumarate (Seroquel -) 25 mg PO BID [facility] Ranitidine HCl (Zantac Oral Solution -) 150 mg PO DAILY [facility] Rosuvastatin Calcium (Crestor -) 5 mg PO HS [facility] Last Admin: 04/01/17 21:51 Dose: 5 mg Sucralfate (Carafate Oral Suspension -) 0.5 gm PO BID [facility] Last Admin: 04/01/17 21:50 Dose: 0.5 gm 77 year old gentleman with PMhx of ESRD on HD (TTS), Hypertension, DVT, PVD s/p right AKA and left toe amputation who presented to the ED with complaints of pain in his left foot and admitted fro soft tissue infection of the foot with concern for worsening ischemic disease. #ESRD on HD s/p dialysis yesterday no acute indication for [facility] [employer] today dose all meds for intermittent HD #Hypokalemia will use higher K bath with HD changed diet to regular diet as k is running low #Wound/Ischemia of left LE s/p amputation wound care Vascular follow up pain control continue Abx as per ID recs #Acute on Chronic Anemia likely due to infection but need to r/o blood loss Hgb stable chase continue IVANIA with HD #Hypernatremia oral water intake as tolerated #Hypocalcemia Corrected Ca is within normal limits PTH is pending Thank you Raghu Boogie DO Problem List - Problems (1) Critical lower limb ischemia Code(s): I99.8 - OTHER DISORDER OF CIRCULATORY SYSTEM (2) Open wnd foot-complicated Code(s): S91.309A - UNSPECIFIED OPEN WOUND, UNSPECIFIED FOOT, INITIAL ENCOUNTER (3) HTN (hypertension) Code(s): I10 - ESSENTIAL (PRIMARY) HYPERTENSION Qualifiers: Hypertension type: essential hypertension Qualified Code(s): I10 - Essential (primary) hypertension (4) ESRD (end stage renal disease) Code(s): N18.6 - END STAGE RENAL DISEASE (5) Anemia Code(s): D64.9 - ANEMIA, UNSPECIFIED
[2017-04-05] MEDS ORDERED: EPOETIN ALFA 10,000 UNIT/1 ML VIAL SQ ONE (11:25)
[2017-04-05] MEDS: oxyCODONE HCL 5 MG TABLET PO PRN (11:34)
[2017-04-05 11:39] LABS: ACANTHOCYTES 1+; ANISOCYTOSIS 3+; MICROCYTOSIS 2+
--- NOTE | 2017-04-05 12:23 | PN ---
Progress Note, Physician Chief Complaint: S/P SFA angioplasty and stent Post left BKA History of Present Illness: Patient was seen and examined. Awake. Chart was reviewed Denies chest pain or SOB - Current Medication List Current Medications: Active Medications Acetaminophen (Ofirmev Injection -) 1,000 mg IVPB Q6H PRN PRN Reason: FEVER OR PAIN Last Admin: 04/03/17 05:39 Dose: 1,000 mg Amino Acids (Prosource No Carb Liquid Pkt) 30 ml PO BID@0800,1730 [facility] Last Admin: 04/05/17 08:40 Dose: 30 ml Budesonide/Formoterol Fumarate (Symbicort 80/4.5mcg -) 2 puff IH BID [facility] Last Admin: 04/05/17 10:19 Dose: Not Given Carvedilol (Coreg -) 3.125 mg PO BID [facility] Last Admin: 04/05/17 10:18 Dose: 3.125 mg Diphenhydramine HCl (Benadryl -) 25 mg PO Q6H PRN PRN Reason: FOR ITCHING Docusate Sodium (Colace -) 300 mg PO HS [facility] Last Admin: 04/04/17 21:07 Dose: Not Given Epoetin Nash (Epogen -) 10,000 units IVPUSH ONCE ONE Stop: 04/06/17 06:01 Haloperidol (Haldol Injection (Fast Acting) -) 2 mg IM Q4H PRN PRN Reason: AGITATION Midodrine (Proamatine -) 10 mg PO TID-MID [facility] Last Admin: 04/05/17 10:19 Dose: 10 mg Ondansetron HCl (Zofran Injection) 4 mg IVPUSH Q6H PRN PRN Reason: NAUSEA AND/OR VOMITING Oxycodone HCl (Roxicodone -) 5 mg PO Q4H PRN PRN Reason: PAIN Last Admin: 04/05/17 11:34 Dose: 5 mg Quetiapine Fumarate (Seroquel -) 25 mg PO BID [facility] Last Admin: 04/05/17 10:19 Dose: 25 mg Ranitidine HCl (Zantac Oral Solution -) 150 mg PO DAILY [facility] Last Admin: 04/05/17 10:19 Dose: 150 mg Rosuvastatin Calcium (Crestor -) 5 mg PO HS [facility] Last Admin: 11/20/17 21:08 Dose: 5 mg Sucralfate (Carafate Oral Suspension -) 0.5 gm PO BID [facility] Last Admin: 04/05/17 10:17 Dose: 0.5 gm Warfarin Sodium (Coumadin -) 5 mg PO DAILY@1800 [facility] Last Admin: 04/04/17 18:45 Dose: 5 mg - Objective Vital Signs: Vital Signs Temperature 97.9 F 04/05/17 08:30 Pulse Rate 79 04/05/17 08:30 Respiratory Rate 20 04/05/17 08:30 Blood Pressure 114/65 04/05/17 08:30 O2 Sat by Pulse Oximetry (%) 96 04/03/17 21:00 Neck: Yes: Supple Cardiovascular: Yes: Regular Rate and Rhythm, S1, S2 Respiratory: Yes: Diminished Gastrointestinal: Yes: Normal Bowel Sounds, Soft. No: Tenderness Extremities: Yes: Amputation Edema: No Labs: CBC, BMP 04/05/17 06:00 04/05/17 06:00 INR, PTT INR 1.59 (0.82-1.09) H 04/04/17 13:21 Fibrinogen 296.0 mg/dL (238-498) D 03/30/17 06:10 Problem List - Problems (1) Critical lower limb ischemia Code(s): I99.8 - OTHER DISORDER OF CIRCULATORY SYSTEM (2) HLD (hyperlipidemia) Code(s): E78.5 - HYPERLIPIDEMIA, UNSPECIFIED Qualifiers: Hyperlipidemia type: pure hypercholesterolemia Qualified Code(s): E78.00 - Pure hypercholesterolemia, unspecified (3) HTN (hypertension) Code(s): I10 - ESSENTIAL (PRIMARY) HYPERTENSION Qualifiers: Hypertension type: essential hypertension Qualified Code(s): I10 - Essential (primary) hypertension (4) ESRD (end stage renal disease) Code(s): N18.6 - END STAGE RENAL DISEASE (5) Anemia Code(s): D64.9 - ANEMIA, UNSPECIFIED (6) Atrial fibrillation Code(s): I48.91 - UNSPECIFIED ATRIAL FIBRILLATION Qualifiers: Atrial fibrillation type: persistent Qualified Code(s): I48.1 - Persistent atrial fibrillation (7) Amputated toe of left foot Code(s): Z89.422 - ACQUIRED ABSENCE OF OTHER LEFT TOE(S) (8) S/P AKA (above knee amputation) Code(s): Z89.619 - ACQUIRED ABSENCE OF UNSPECIFIED LEG ABOVE KNEE Qualifiers: Laterality: right Qualified Code(s): Z89.611 - Acquired absence of right leg above knee (9) Cardiomyopathy Code(s): I42.9 - CARDIOMYOPATHY, UNSPECIFIED Qualifiers: Cardiomyopathy type: unspecified Qualified Code(s): I42.9 - Cardiomyopathy , unspecified (10) Systolic dysfunction, left ventricle Code(s): I51.9 - HEART DISEASE, UNSPECIFIED Assessment/Plan 1. 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 Renal artery disease with ESRD on HD 3. HTN/HCVD 4. Persistent AF ([id number] score of 4) 5. History of DVT 6. Severe LV systolic dysfunction/cardiomyopathy 7. Severe tricuspid valve regurgitation with pulmonary hypertension 8. S/P mechanical fall 9. Thrombocytopenia PLAN: 1. Optimize medical therapy. Continue Carvedilol and Crestor 2. Continue Coumadin as per INR 3. Replete K and monitor electrolytes and renal function Further plans are to follow. Guarded Elias Landrum MD
[2017-04-05] MEDS: HALOPERIDOL LACTATE 5 MG/ML IM PRN (13:02)
--- NOTE | 2017-04-05 13:24 | PN ---
Physical Exam: SUBJECTIVE: Patient seen and examined. Restless, he says he is in pain and then says he is fine. OBJECTIVE: Vital Signs Period Temp Pulse Resp BP Sys/Coleman Pulse Ox Last 24 Hr 97.9 F-98.2 F 79-97 18-20 93-148/62-76 PE Neuro: awake, confused, mumbles, disoriented Pulm: CTA anteriorly CV: s1 s2 irregular rate + 2/6 systolic murmur Abd: soft, nt, nd +bs Ext: R AKA amputation, left BKA with brace dressing cdi, R AVF + thrill + bruit Laboratory Results - last 24 hr 04/04/17 04/04/17 04/04/17 13:21 13:21 13:21 WBC Corrected WBC (auto) RBC Hgb Hct MCV MCH MCHC RDW Plt Count MPV Neutrophils % Lymphocytes % Monocytes % Eosinophils % Basophils % Anisocytosis Microcytosis Acanthocytes (Spur) Fragmented RBCs PT with INR 18.00 H INR 1.59 H Sodium 149 H Potassium 3.0 L Chloride 107 Carbon Dioxide 28 Anion Gap 14 BUN 31 H D Creatinine 5.8 H D Creat Clearance w eGFR 9.55 Random Glucose 95 D Calcium 7.6 L Phosphorus 2.3 L D Total Bilirubin 0.6 AST 13 L D ALT 9 L Alkaline Phosphatase 78 Total Protein 4.7 L Albumin 1.9 L Random Vancomycin 17.199 Blood Type Antibody Screen 04/04/17 04/04/17 04/04/17 13:21 13:21 13:25 WBC Cancelled Corrected WBC (auto) Cancelled RBC Cancelled Hgb Cancelled Hct Cancelled MCV Cancelled MCH Cancelled MCHC Cancelled RDW Cancelled Plt Count Cancelled MPV Cancelled Neutrophils % Lymphocytes % Monocytes % Eosinophils % Basophils % Anisocytosis Microcytosis Acanthocytes (Spur) Fragmented RBCs PT with INR INR Sodium Potassium Chloride Carbon Dioxide Anion Gap BUN Creatinine Creat Clearance w eGFR Random Glucose Calcium Phosphorus Cancelled Total Bilirubin AST ALT Alkaline Phosphatase Total Protein Albumin Random Vancomycin Blood Type O POSITIVE Antibody Screen Negative 04/04/17 04/05/17 04/05/17 13:27 06:00 06:00 WBC 8.8 D 8.0 Corrected WBC (auto) RBC 3.37 L 3.60 L Hgb 9.6 L 10.2 L Hct 30.7 L 33.2 L MCV 91.0 92.3 MCH 28.6 28.5 MCHC 31.4 L 30.9 L RDW 22.4 H 22.9 H Plt Count 93 L 75 L MPV 8.1 8.0 Neutrophils % 84.8 H 85.2 H Lymphocytes % 6.5 L D 6.7 L Monocytes % 7.3 6.5 Eosinophils % 0.5 1.0 D Basophils % 0.9 0.6 Anisocytosis 3+ Microcytosis 2+ Acanthocytes (Spur) 1+ Fragmented RBCs 1+ PT with INR INR Sodium 149 H Potassium 2.7 L* Chloride 108 H Carbon Dioxide 31 Anion Gap 10 BUN 29 H Creatinine 5.2 H Creat Clearance w eGFR Random Glucose 87 Calcium 7.6 L Phosphorus Total Bilirubin AST ALT Alkaline Phosphatase Total Protein Albumin Random Vancomycin Blood Type Antibody Screen Active Medications Generic Name Dose Route Start Last Admin Trade Name Freq PRN Reason Stop Dose Admin Acetaminophen 1,000 mg 04/01/17 17:31 04/03/17 05:39 Ofirmev Injection - IVPB 1,000 mg Q6H PRN Administration FEVER OR PAIN Amino Acids 30 ml 04/02/17 11:00 04/05/17 08:40 Prosource No Carb Liquid Pkt PO 30 ml BID@0800,1730 OTIS Administration Budesonide/Formoterol Fumarate 2 puff 04/01/17 22:00 04/05/17 10:19 Symbicort 80/4.5mcg - IH Not Given BID OTIS Carvedilol 3.125 mg 04/01/17 22:00 04/05/17 10:18 Coreg - PO 3.125 mg BID OTIS Administration Diphenhydramine HCl 25 mg 04/01/17 17:31 Benadryl - PO Q6H PRN FOR ITCHING Docusate Sodium 300 mg 04/01/17 22:00 04/04/17 21:07 Colace - PO Not Given HS OTIS Epoetin Nash 10,000 units 04/06/17 06:00 Epogen - IVPUSH 04/06/17 06:01 ONCE ONE Haloperidol 2 mg 04/04/17 16:53 04/05/17 13:02 Haldol Injection (Fast Acting) - IM 2 mg Q4H PRN Administration AGITATION Midodrine 10 mg 04/01/17 18:00 04/05/17 10:19 Proamatine - PO 10 mg TID-MID OTIS Administration Ondansetron HCl 4 mg 04/01/17 17:31 Zofran Injection IVPUSH Q6H PRN NAUSEA AND/OR VOMITING Oxycodone HCl 5 mg 04/05/17 11:09 04/05/17 11:34 Roxicodone - PO 5 mg Q4H PRN Administration PAIN Quetiapine Fumarate 25 mg 04/02/17 10:50 04/05/17 10:19 Seroquel - PO 25 mg BID OTIS Administration Ranitidine HCl 150 mg 04/02/17 10:00 04/05/17 10:19 Zantac Oral Solution - PO 150 mg DAILY OTIS Administration Rosuvastatin Calcium 5 mg 04/01/17 22:00 04/04/17 21:08 Crestor - PO 5 mg HS OTIS Administration Sucralfate 0.5 gm 04/01/17 22:00 04/05/17 10:17 Carafate Oral Suspension - PO 0.5 gm BID OTIS Administration Warfarin Sodium 5 mg 04/03/17 18:00 04/04/17 18:45 Coumadin - PO 5 mg DAILY@1800 OTIS Administration Imaging: - ECHO: severely reduced LV systolic function, severe TR, moderate pulmonary HTN , mild AR, severely dilated LA and RA Assessment: 77 year old male with PMHX significant for ESRD HD (,,S) HTN, DVT , PAD, vasculopathy s/p R AKA, s/p L SFA angioplasty and stent placement and 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 Plan: 1. LLE ischemic leg with progressive dry gangrene - s/p L BKA 04/01 - Stop vanco/zosyn 04/04 - Off abx x24 hrs, stable - Remove eliezer in 8 days 2. ESRD on HD, ( S) - HD yesterday, no indication for HD today - Vanco w/ HD - Replete potassium 40meq x1 - Renal following 3. Acute on Chronic Anemia - Infection/disease process related - Hgb stable, transfuse hgb <7 - Epogen with HD 4. AFib, [id number] 4 - Coumadin 5mg, no bridge pt combative - Daily INR - Rate controlled off AC 5. Coagulopathy - Hx of DVT - Mixing studies reviewed, no LA 6. CAD - Coreg 3.125mg BID - Crestor 5mg HS 7. Thrombocytopenia- Improving - Platelet transfusion 04/01 8. Hypernatremia - Resolved 9. Hypocalcemia - Corrected Ca ~9.8 - Check PTH 10. Liver cirrhosis 11. + stool occult - No overt signs of GI bleed - No EGD/colonoscopy indicated with no active bleeding - H2 BID - Sucralfate BID 12. Agitation, delirium - Haldol IM Prn - Seroquel 25mg BID - Psych note appreciated Visit type - Emergency Visit Emergency Visit: Yes ED Registration Date: 03/14/17 Care time: The patient presented to the Emergency Department on the above date and was hospitalized for further evaluation of their emergent condition. - New Patient This patient is new to me today: No - Critical Care Critical Care patient: No - Discharge Referral Referred to [facility] No
--- NOTE | 2017-04-05 13:25 | PN ---
Progress Note, Physician History of Present Illness: patient stable post op bka very restless - Current Medication List Current Medications: Active Medications Acetaminophen (Ofirmev Injection -) 1,000 mg IVPB Q6H PRN PRN Reason: FEVER OR PAIN Last Admin: 04/03/17 05:39 Dose: 1,000 mg Amino Acids (Prosource No Carb Liquid Pkt) 30 ml PO BID@0800,1730 [facility] Last Admin: 04/05/17 08:40 Dose: 30 ml Budesonide/Formoterol Fumarate (Symbicort 80/4.5mcg -) 2 puff IH BID [facility] Last Admin: 04/05/17 10:19 Dose: Not Given Carvedilol (Coreg -) 3.125 mg PO BID [facility] Last Admin: 04/05/17 10:18 Dose: 3.125 mg Diphenhydramine HCl (Benadryl -) 25 mg PO Q6H PRN PRN Reason: FOR ITCHING Docusate Sodium (Colace -) 300 mg PO [facility] Last Admin: 04/04/17 21:07 Dose: Not Given Epoetin Nash (Epogen -) 10,000 units IVPUSH ONCE ONE Stop: 04/06/17 06:01 Haloperidol (Haldol Injection (Fast Acting) -) 2 mg IM Q4H PRN PRN Reason: AGITATION Last Admin: 04/05/17 13:02 Dose: 2 mg Midodrine (Proamatine -) 10 mg PO TID-MID [facility] Last Admin: 04/05/17 10:19 Dose: 10 mg Ondansetron HCl (Zofran Injection) 4 mg IVPUSH Q6H PRN PRN Reason: NAUSEA AND/OR VOMITING Oxycodone HCl (Roxicodone -) 5 mg PO Q4H PRN PRN Reason: PAIN Last Admin: 04/05/17 11:34 Dose: 5 mg Quetiapine Fumarate (Seroquel -) 25 mg PO BID [facility] Last Admin: 04/05/17 10:19 Dose: 25 mg Ranitidine HCl (Zantac Oral Solution -) 150 mg PO DAILY [facility] Last Admin: 04/05/17 10:19 Dose: 150 mg Rosuvastatin Calcium (Crestor -) 5 mg PO HS [facility] Last Admin: 04/04/17 21:08 Dose: 5 mg Sucralfate (Carafate Oral Suspension -) 0.5 gm PO BID [facility] Last Admin: 04/05/17 10:17 Dose: 0.5 gm Warfarin Sodium (Coumadin -) 5 mg PO DAILY@1800 [facility] Last Admin: 04/04/17 18:45 Dose: 5 mg - Objective Vital Signs: Vital Signs Temperature 97.9 F 04/05/17 08:30 Pulse Rate 79 04/05/17 08:30 Respiratory Rate 20 04/05/17 08:30 Blood Pressure 114/65 04/05/17 08:30 O2 Sat by Pulse Oximetry (%) 96 04/03/17 21:00 Constitutional: Yes: No Distress, Calm Cardiovascular: Yes: Regular Rate and Rhythm Respiratory: Yes: Regular, CTA Bilaterally Gastrointestinal: Yes: Normal Bowel Sounds, Soft Musculoskeletal: Yes: Other Extremities: Yes: Other Neurological: Yes: Alert, Other Labs: CBC, BMP 04/05/17 06:00 04/05/17 06:00 INR, PTT INR 1.59 (0.82-1.09) H 04/04/17 13:21 Fibrinogen 296.0 mg/dL (238-498) D 03/30/17 06:10 Assessment/Plan Problem List - Problems (1) Anemia Code(s): D64.9 - ANEMIA, UNSPECIFIED (2) Critical lower limb ischemia Code(s): I99.8 - OTHER DISORDER OF CIRCULATORY SYSTEM (3) ESRD (end stage renal disease) Code(s): N18.6 - END STAGE RENAL DISEASE (4) HTN (hypertension) Code(s): I10 - ESSENTIAL (PRIMARY) HYPERTENSION (5) Open wnd foot-complicated Code(s): S91.309A - UNSPECIFIED OPEN WOUND, UNSPECIFIED FOOT, INITIAL ENCOUNTER cardiomyopathy gangrene of the foot plan continue to watch off of abx rest as per primary
--- NOTE | 2017-04-05 14:09 | PN ---
Progress Note (short form) - Note Progress Note: Renal follow up for ESRD on HD Pt seen and examined at the bedside awake and alert agitated wants to remove naun Vital Signs Temperature 97.9 F 04/05/17 08:30 Pulse Rate 79 04/05/17 08:30 Respiratory Rate 20 04/05/17 08:30 Blood Pressure 114/65 04/05/17 08:30 O2 Sat by Pulse Oximetry (%) 96 04/03/17 21:00 Intake & Output 04/02/17 04/03/17 04/04/17 04/05/17 23:59 23:59 23:59 23:59 Intake Total 850 2150 130 Balance 850 2150 130 Weight 65.408 kg 60.073 kg 59.676 kg 56.841 kg Agitated RRR CTA (anterior) Left leg in brace s/p amputation CBC, BMP 04/05/17 06:00 04/05/17 06:00 77 year old gentleman with PMhx of ESRD on HD (TTS), Hypertension, DVT, PVD s/p right AKA and left toe amputation who presented to the ED with complaints of pain in his left foot and admitted fro soft tissue infection of the foot with concern for worsening ischemic disease. 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 dose all meds for intermittent HD #Hypokalemia will use higher K bath with HD changed diet to regular diet as k is running low #Wound/Ischemia of left LE s/p amputation wound care Vascular follow up pain control continue Abx as per ID recs #Acute on Chronic Anemia likely due to infection but need to r/o blood loss Hgb stable chase continue IVANIA with HD #Hypernatremia oral water intake as tolerated #Hypocalcemia Corrected Ca is within normal limits PTH is pending Thank you Raghu Boogie DO Problem List - Problems (1) Critical lower limb ischemia Code(s): I99.8 - OTHER DISORDER OF CIRCULATORY SYSTEM (2) Open wnd foot-complicated Code(s): S91.309A - UNSPECIFIED OPEN WOUND, UNSPECIFIED FOOT, INITIAL ENCOUNTER (3) HTN (hypertension) Code(s): I10 - ESSENTIAL (PRIMARY) HYPERTENSION Qualifiers: Hypertension type: essential hypertension Qualified Code(s): I10 - Essential (primary) hypertension (4) ESRD (end stage renal disease) Code(s): N18.6 - END STAGE RENAL DISEASE (5) Anemia Code(s): D64.9 - ANEMIA, UNSPECIFIED
[2017-04-05 16:28] LABS: INR 2.25 (0.82-1.09); PROTHROMBIN TIME (PATIENT) 25.4 SEC (9.98-11.88)
--- NOTE | 2017-04-05 17:27 | PN ---
Progress Note (short form) - Note Progress Note: Patient seen and examined Eyes closed , constant talking. Complains of total body pain Last Vital Signs Temp Pulse Resp BP Pulse Ox 97.8 F 107 H 20 106/64 96 04/05/17 16:58 04/05/17 16:58 04/05/17 16:58 04/05/17 16:58 04/03/17 21:00 Eyes closed Lungs -diminished breath sounds Cor-AF Abd-soft S/P r AKA Left lower extremity -s/p surgery with covering CBC, BMP 04/05/17 06:00 04/05/17 06:00 Current Medications Generic Name Dose Route Start Last Admin Trade Name Freq PRN Reason Stop Dose Admin Acetaminophen 1,000 mg 04/01/17 17:31 04/03/17 05:39 Ofirmev Injection - IVPB 1,000 mg Q6H PRN Administration FEVER OR PAIN Amino Acids 30 ml 04/02/17 11:00 04/05/17 08:40 Prosource No Carb Liquid Pkt PO 30 ml BID@0800,1730 OTIS Administration Budesonide/Formoterol Fumarate 2 puff 04/01/17 22:00 04/05/17 10:19 Symbicort 80/4.5mcg - IH Not Given BID OTIS Carvedilol 3.125 mg 04/01/17 22:00 04/05/17 10:18 Coreg - PO 3.125 mg BID OTIS Administration Diphenhydramine HCl 25 mg 04/01/17 17:31 Benadryl - PO Q6H PRN FOR ITCHING Docusate Sodium 300 mg 04/01/17 22:00 04/04/17 21:07 Colace - PO Not Given HS OTIS Epoetin Nash 10,000 units 04/06/17 06:00 Epogen - IVPUSH 04/06/17 06:01 ONCE ONE Haloperidol 2 mg 04/04/17 16:53 04/05/17 13:02 Haldol Injection (Fast Acting) - IM 2 mg Q4H PRN Administration AGITATION Midodrine 10 mg 04/01/17 18:00 04/05/17 13:54 Proamatine - PO 10 mg TID-MID OTIS Administration Ondansetron HCl 4 mg 04/01/17 17:31 Zofran Injection IVPUSH Q6H PRN NAUSEA AND/OR VOMITING Oxycodone HCl 5 mg 04/05/17 11:09 04/05/17 11:34 Roxicodone - PO 5 mg Q4H PRN Administration PAIN Quetiapine Fumarate 25 mg 04/02/17 10:50 04/05/17 10:19 Seroquel - PO 25 mg BID OTIS Administration Ranitidine HCl 150 mg 04/02/17 10:00 04/05/17 10:19 Zantac Oral Solution - PO 150 mg DAILY OTIS Administration Rosuvastatin Calcium 5 mg 04/01/17 22:00 04/04/17 21:08 Crestor - PO 5 mg HS OTIS Administration Sucralfate 0.5 gm 04/01/17 22:00 04/05/17 10:17 Carafate Oral Suspension - PO 0.5 gm BID OTIS Administration Warfarin Sodium 5 mg 04/03/17 18:00 04/04/17 18:45 Coumadin - PO 5 mg DAILY@1800 OTIS Administration Impression: Ischemia , gangrene LE- s/p amputation Electrolyte disturbance ESRD/HD Confusion Anemia Coagulopathy Trombocytopenia Plan: Continue a/c with coumadin Monitor CBC/Coags. Epogen @ 150u/kg.
[2017-04-05] MEDS: WARFARIN NA 5 MG TABLET (UD) PO SCH (17:57)
--- NOTE | 2017-04-05 18:39 | PATH ---
Surgical Pathology Report Patient Name: NEFTALI ROMAN Med. Rec. #: [id number] /Age/Gender: 1940 (Age: 77) / M Account: [id number] Location: [facility] MED/SURG Taken: 03/31/2017 Received: 04/01/2017 Reported: 04/05/2017 Physicians: Mani Patino Specimen(s) Received EXTREMITY AMPUTATION Clinical History Critical ischemia of left lower extremity Final Diagnosis LOWER LEG AND FOOT, LEFT, BELOW THE KNEE AMPUTATION: ACUTE AND CHRONIC INFLAMMATION, ULCERATION, AND GANGRENOUS NECROSIS. ACUTE OSTEOMYELITIS. MODERATE TO SEVERE CALCIFIC ATHEROSCLEROSIS. MARGINS OF RESECTION ARE VIABLE. Electronically Signed Maria De Jesus Lee M.D. Gross Description Received fresh labeled "left below knee amputation," is a 31 cm in length left below the knee amputation specimen. The foot measures 25 cm from heel to toe. There is a 5 cm in length exposed portion of tibia and a 10 cm in length exposed portion of fibula at the proximal aspect of the specimen. The second digit appears to have been previously amputated. There is a 12.0 x 6.0 cm black, gangrenous lesion at the previous amputation site, involving the remaining digits as well as be dorsal aspect of the foot. The lesion involves the underlying bone. There is a 2.0 x 2.0 cm ulcerated lesion on the lateral malleolus. The lesion is 9 cm from the skin and soft tissue margin. Sectioning of the vasculature reveals focal moderate to severe atherosclerosis. Emergency Telecommunications Dispatcher sections are submitted in 7 cassettes as follows: 1-lesion (from third digit) with underlying bone, following decalcification; 2-lateral malleolus lesion with underlying bone, following decalcification; 3-bone marrow from margin, following decalcification; 4-skin and soft tissue margin; 5-anterior tibial artery; 6-posterior tibial artery; 7-dorsalis pedis. /04/01/201704/01/2017
[2017-04-05] MEDS: DOCUSATE SODIUM 100 MG CAPSULE (FP) PO SCH (21:41)
[2017-04-05] MEDS: ROSUVASTATIN CA 5 MG TABLET (FP) PO SCH (21:41)
[2017-04-06] MEDS: oxyCODONE HCL 5 MG TABLET PO PRN ×2 (02:26→16:18)
[2017-04-06] MEDS: HALOPERIDOL LACTATE 5 MG/ML IM PRN ×2 (03:28→11:50)
[2017-04-06] MEDS: AMINO ACIDS/PROTEIN HYDROLYS 30 ML LIQUID.PKT PO SCH ×2 (08:13→17:41)
[2017-04-06] MEDS ORDERED: PT OWN MED DRAWER 7, Y5N ONE ×2 (09:36→17:24)
[2017-04-06] MEDS: CARVEDILOL 3.125 MG TABLET (FP) PO SCH ×2 (09:41→22:24)
[2017-04-06] MEDS: SUCRALFATE 1 GM/10 ML UNIT DOSE CUPS PO SCH ×2 (09:41→22:24)
[2017-04-06] MEDS: QUEtiapine FUMARATE 25 MG TABLET (FP) PO SCH ×2 (09:42→22:24)
[2017-04-06] MEDS: RANITIDINE HCL 150 MG/10 ML UNIT-DOSE PO SCH (09:42)
[2017-04-06] MEDS: MIDODRINE HCL 5 MG TABLET PO SCH ×3 (09:42→18:47)
[2017-04-06] MEDS: BUDESONIDE/FORMETEROL FUMARATE 80/4.5 mcg INHALER IH SCH ×2 (09:43→22:56)
[2017-04-06] MEDS ORDERED: EPOETIN ALFA 10,000 UNIT/1 ML VIAL IVPUSH ONE (13:00)
[2017-04-06 13:27] LABS: MCH 28.8 pg (25.7-33.7); MCHC 31.4 g/dl (32.0-35.9); MEAN CELL VOLUME 91.5 fl (80-96); MEAN PLT VOLUME 8.3 fl (7.5-11.1); PLATELET COUNT 86 K/MM3 (134-434); RDW 22.9 % (11.9-15.9); WHITE BLOOD COUNT 14.7 K/mm3 (4.0-10.0)
--- NOTE | 2017-04-06 13:31 | PN ---
Physical Exam: SUBJECTIVE: Patient seen and examined. Hes in pain. mildly agitated OBJECTIVE: Vital Signs Period Temp Pulse Resp BP Sys/Coleman Pulse Ox Last 24 Hr 97.5 F-98.5 F 82-107 16-21 98-135/56-77 PE Neuro: awake, confused, mumbles, disoriented Pulm: CTA anteriorly CV: s1 s2 irregular rate + 2/6 systolic murmur Abd: soft, nt, nd +bs Ext: R AKA amputation, left BKA with brace dressing cdi, R AVF + thrill + bruit Laboratory Results - last 24 hr 04/04/17 04/05/17 13:21 15:00 PT with INR 25.40 H INR 2.25 H D PTH Intact 281 H Active Medications Generic Name Dose Route Start Last Admin Trade Name Freq PRN Reason Stop Dose Admin Acetaminophen 1,000 mg 04/01/17 17:31 04/03/17 05:39 Ofirmev Injection - IVPB 1,000 mg Q6H PRN Administration FEVER OR PAIN Amino Acids 30 ml 04/02/17 11:00 04/06/17 08:13 Prosource No Carb Liquid Pkt PO 30 ml BID@0800,1730 OTIS Administration Budesonide/Formoterol Fumarate 2 puff 04/01/17 22:00 04/06/17 09:43 Symbicort 80/4.5mcg - IH Not Given BID OTIS Carvedilol 3.125 mg 04/01/17 22:00 04/06/17 09:41 Coreg - PO 3.125 mg BID OTIS Administration Diphenhydramine HCl 25 mg 04/01/17 17:31 Benadryl - PO Q6H PRN FOR ITCHING Docusate Sodium 300 mg 04/01/17 22:00 04/05/17 21:41 Colace - PO 300 mg HS OTIS Administration Gabapentin 100 mg 04/06/17 10:00 Neurontin - PO BID OTIS Haloperidol 2 mg 04/04/17 16:53 04/06/17 11:50 Haldol Injection (Fast Acting) - IM 2 mg Q4H PRN Administration AGITATION Midodrine 10 mg 04/01/17 18:00 04/06/17 09:42 Proamatine - PO 10 mg TID-MID OTIS Administration Ondansetron HCl 4 mg 04/01/17 17:31 Zofran Injection IVPUSH Q6H PRN NAUSEA AND/OR VOMITING Oxycodone HCl 5 mg 04/05/17 11:09 04/06/17 02:26 Roxicodone - PO 5 mg Q4H PRN Administration PAIN Quetiapine Fumarate 25 mg 04/02/17 10:50 04/06/17 09:42 Seroquel - PO 25 mg BID OTIS Administration Ranitidine HCl 150 mg 04/02/17 10:00 04/06/17 09:42 Zantac Oral Solution - PO 150 mg DAILY OTIS Administration Rosuvastatin Calcium 5 mg 04/01/17 22:00 04/05/17 21:41 Crestor - PO 5 mg HS OTIS Administration Sucralfate 0.5 gm 04/01/17 22:00 04/06/17 09:41 Carafate Oral Suspension - PO 0.5 gm BID OTIS Administration Warfarin Sodium 5 mg 04/03/17 18:00 04/05/17 17:57 Coumadin - PO 5 mg DAILY@1800 OTIS Administration Imaging: - ECHO: severely reduced LV systolic function, severe TR, moderate pulmonary HTN , mild AR, severely dilated LA and RA Assessment: 77 year old male with PMHX significant for ESRD HD (T,,S) HTN, DVT , PAD, vasculopathy s/p R AKA, s/p L SFA angioplasty and stent placement and 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 Plan: 1. LLE ischemic leg with progressive dry gangrene - s/p L BKA 04/01 - Stop vanco/zosyn 04/04 - Off abx x48hr - Remove eliezer in 1 week 2. ESRD on HD, ( S) - HD per Renal service - Vanco w/ HD 3. Acute on Chronic Anemia - Infection/disease process related - Hgb stable, transfuse hgb <7 - Epogen with HD 4. AFib, [id number] 4 - Coumadin 5mg, no bridge pt combative - INR therapeutic - Rate controlled off AC 5. Coagulopathy - Hx of DVT - Mixing studies reviewed, no LA 6. CAD - Coreg 3.125mg BID - Crestor 5mg HS 7. Thrombocytopenia- Improving - Platelet transfusion 04/01 8. Hypernatremia - Resolved 9. Hypocalcemia - Corrected Ca ~9.8 - Check PTH 10. Liver cirrhosis 11. + stool occult - No overt signs of GI bleed - No EGD/colonoscopy indicated with no active bleeding - H2 BID - Sucralfate BID 12. Agitation, delirium - Haldol IM Prn - Seroquel 25mg BID - Psych note appreciated Visit type - Emergency Visit Emergency Visit: Yes ED Registration Date: 03/14/17 Care time: The patient presented to the Emergency Department on the above date and was hospitalized for further evaluation of their emergent condition. - New Patient This patient is new to me today: No - Critical Care Critical Care patient: No
[2017-04-06] MEDS ORDERED: LORazepam 2 MG/ML SDV VIAL IVPUSH PRN (13:37)
--- NOTE | 2017-04-06 13:43 | PN ---
Progress Note (short form) - Note Progress Note: Renal Follow up for ESRD on HD Pt seen and examined at the bedside awake and alert no acute complaints Vital Signs Temperature 98.5 F 04/06/17 08:00 Pulse Rate 88 04/06/17 13:00 Respiratory Rate 18 04/06/17 13:00 Blood Pressure 98/67 04/06/17 13:00 O2 Sat by Pulse Oximetry (%) 96 04/03/17 21:00 Intake & Output 04/03/17 04/04/17 04/05/17 04/06/17 23:59 23:59 23:59 23:59 Intake Total 2150 130 Balance 2150 130 Weight 60.073 kg 59.676 kg 56.841 kg 57.635 kg Agitated RRR CTA (anterior) Left leg in brace s/p amputation Labs pending Current Medications Acetaminophen (Ofirmev Injection -) 1,000 mg IVPB Q6H PRN PRN Reason: FEVER OR PAIN Last Admin: 04/03/17 05:39 Dose: 1,000 mg Amino Acids (Prosource No Carb Liquid Pkt) 30 ml PO BID@0800,1730 [facility] Last Admin: 04/06/17 08:13 Dose: 30 ml Budesonide/Formoterol Fumarate (Symbicort 80/4.5mcg -) 2 puff IH BID [facility] Last Admin: 04/06/17 09:43 Dose: Not Given Carvedilol (Coreg -) 3.125 mg PO BID [facility] Last Admin: 04/06/17 09:41 Dose: 3.125 mg Diphenhydramine HCl (Benadryl -) 25 mg PO Q6H PRN PRN Reason: FOR ITCHING Docusate Sodium (Colace -) 300 mg PO HS [facility] Last Admin: 04/05/17 21:41 Dose: 300 mg Gabapentin (Neurontin -) 100 mg PO BID [facility] Haloperidol (Haldol Injection (Fast Acting) -) 2 mg IM Q4H PRN PRN Reason: AGITATION Last Admin: 04/06/17 11:50 Dose: 2 mg Lorazepam (Ativan Injection -) 0.5 mg IVPUSH BID PRN PRN Reason: ANXIETY Midodrine (Proamatine -) 10 mg PO TID-MID [facility] Last Admin: 04/06/17 09:42 Dose: 10 mg Ondansetron HCl (Zofran Injection) 4 mg IVPUSH Q6H PRN PRN Reason: NAUSEA AND/OR VOMITING Oxycodone HCl (Roxicodone -) 5 mg PO Q4H PRN PRN Reason: PAIN Last Admin: 04/06/17 02:26 Dose: 5 mg Quetiapine Fumarate (Seroquel -) 25 mg PO BID [facility] Last Admin: 04/06/17 09:42 Dose: 25 mg Ranitidine HCl (Zantac Oral Solution -) 150 mg PO DAILY [facility] Last Admin: 04/06/17 09:42 Dose: 150 mg Rosuvastatin Calcium (Crestor -) 5 mg PO HS [facility] Last Admin: 04/05/17 21:41 Dose: 5 mg Silver Sulfadiazine (Silvadene -) 1 applic TP BID [facility] Sucralfate (Carafate Oral Suspension -) 0.5 gm PO BID [facility] Last Admin: 04/06/17 09:41 Dose: 0.5 gm Warfarin Sodium (Coumadin -) 5 mg PO DAILY@1800 [facility] Last Admin: 04/05/17 17:57 Dose: 5 mg 77 year old gentleman with PMhx of ESRD on HD (TTS), Hypertension, DVT, PVD s/p right AKA and left toe amputation who presented to the ED with complaints of pain in his left foot and admitted fro soft tissue infection of the foot with concern for worsening ischemic disease. #ESRD on HD tolerating dialysis well today #Hypokalemia 3k bath with HD #Wound/Ischemia of left LE s/p amputation Wound care pain control #Acute on Chronic Anemia likely due to infection but need to r/o blood loss continue IVANIA with HD #Hypernatremia oral water intake as tolerated #Hypocalcemia Corrected Ca is within normal limits PTH is pending Thank you Raghu Boogie DO Problem List - Problems (1) Critical lower limb ischemia Code(s): I99.8 - OTHER DISORDER OF CIRCULATORY SYSTEM (2) Open wnd foot-complicated Code(s): S91.309A - UNSPECIFIED OPEN WOUND, UNSPECIFIED FOOT, INITIAL ENCOUNTER (3) HTN (hypertension) Code(s): I10 - ESSENTIAL (PRIMARY) HYPERTENSION Qualifiers: Hypertension type: essential hypertension Qualified Code(s): I10 - Essential (primary) hypertension (4) ESRD (end stage renal disease) Code(s): N18.6 - END STAGE RENAL DISEASE (5) Anemia Code(s): D64.9 - ANEMIA, UNSPECIFIED
[2017-04-06 13:55] LABS: CALCIUM 8.2 mg/dL (8.5-10.1)
[2017-04-06 13:59] LABS: ANION GAP 13 (8-16); CO2 28 mmol/L (21-32); CREATININE 6.7 mg/dL (0.7-1.3); GLUCOSE,RANDOM 124 mg/dL (74-106); PHOSPHOROUS 2.4 mg/dL (2.5-4.9)
[2017-04-06 14:09] LABS: INR 3.36 (0.82-1.09)
--- NOTE | 2017-04-06 14:10 | PN ---
Progress Note (short form) - Note Progress Note: Pt seen and examined. Seen in HD. unchanged status O/E: Constitutional: Yes: calm HENT: Yes: Atraumatic, Normocephalic Neck: Yes: Supple Cardiovascular: Yes: WNL Respiratory: Yes:normal Extremities: Yes: Other +cast in the LE Neurological: Yes:calm Labs: Last Vital Signs Temp Pulse Resp BP Pulse Ox 98.5 F 79 18 109/61 96 04/06/17 08:00 04/06/17 13:42 04/06/17 13:42 04/06/17 13:42 04/03/17 21:00 CBC, BMP 04/06/17 12:58 04/06/17 12:58 Current Medications Generic Name Dose Route Start Last Admin Trade Name Freq PRN Reason Stop Dose Admin Acetaminophen 1,000 mg 04/01/17 17:31 04/03/17 05:39 Ofirmev Injection - IVPB 1,000 mg Q6H PRN Administration FEVER OR PAIN Amino Acids 30 ml 04/02/17 11:00 04/06/17 08:13 Prosource No Carb Liquid Pkt PO 30 ml BID@0800,1730 [facility] Administration Budesonide/Formoterol Fumarate 2 puff 04/01/17 22:00 04/06/17 09:43 Symbicort 80/4.5mcg - IH Not Given BID [facility] Carvedilol 3.125 mg 04/01/17 22:00 04/06/17 09:41 Coreg - PO 3.125 mg BID [facility] Administration Diphenhydramine HCl 25 mg 04/01/17 17:31 Benadryl - PO Q6H PRN FOR ITCHING Docusate Sodium 300 mg 04/01/17 22:00 04/05/17 21:41 Colace - PO 300 mg HS [facility] Administration Gabapentin 100 mg 04/06/17 10:00 Neurontin - PO BID [facility] Haloperidol 2 mg 04/04/17 16:53 04/06/17 11:50 Haldol Injection (Fast Acting) - IM 2 mg Q4H PRN Administration AGITATION Lorazepam 0.5 mg 04/06/17 13:37 Ativan Injection - IVPUSH BID PRN ANXIETY Midodrine 10 mg 04/01/17 18:00 04/06/17 09:42 Proamatine - PO 10 mg TID-MID [facility] Administration Ondansetron HCl 4 mg 04/01/17 17:31 Zofran Injection IVPUSH Q6H PRN NAUSEA AND/OR VOMITING Oxycodone HCl 5 mg 04/05/17 11:09 04/06/17 02:26 Roxicodone - PO 5 mg Q4H PRN Administration PAIN Quetiapine Fumarate 25 mg 04/02/17 10:50 04/06/17 09:42 Seroquel - PO 25 mg BID [facility] Administration Ranitidine HCl 150 mg 04/02/17 10:00 04/06/17 09:42 Zantac Oral Solution - PO 150 mg DAILY [facility] Administration Rosuvastatin Calcium 5 mg 04/01/17 22:00 04/05/17 21:41 Crestor - PO 5 mg HS [facility] Administration Silver Sulfadiazine 1 applic 04/06/17 13:45 Silvadene - TP BID [facility] Sucralfate 0.5 gm 04/01/17 22:00 04/06/17 09:41 Carafate Oral Suspension - PO 0.5 gm BID [facility] Administration Warfarin Sodium 5 mg 04/03/17 18:00 04/05/17 17:57 Coumadin - PO 5 mg DAILY@1800 [facility] Administration Ischemia , gangrene LE- s/p amputation ESRD/HD Confusion Anemia Coagulopathy Trombocytopenia Plan: Continue a/c with coumadin Monitor CBC/Coags.
[2017-04-06] MEDS: GABAPENTIN 100 MG CAPSULE (FP) PO SCH ×2 (16:17→22:24)
[2017-04-06] MEDS: SILVER SULFADIAZINE 1% TOP CREAM 400 GM JAR TP SCH ×2 (16:18→22:26)
--- NOTE | 2017-04-06 17:09 | PN ---
Progress Note, Physician History of Present Illness: patient stable post op bka tolerating dialysis - Current Medication List Current Medications: Active Medications Acetaminophen (Ofirmev Injection -) 1,000 mg IVPB Q6H PRN PRN Reason: FEVER OR PAIN Last Admin: 04/03/17 05:39 Dose: 1,000 mg Amino Acids (Prosource No Carb Liquid Pkt) 30 ml PO BID@0800,1730 [facility] Last Admin: 04/06/17 08:13 Dose: 30 ml Budesonide/Formoterol Fumarate (Symbicort 80/4.5mcg -) 2 puff IH BID [facility] Last Admin: 04/06/17 09:43 Dose: Not Given Carvedilol (Coreg -) 3.125 mg PO BID [facility] Last Admin: 04/06/17 09:41 Dose: 3.125 mg Diphenhydramine HCl (Benadryl -) 25 mg PO Q6H PRN PRN Reason: FOR ITCHING Docusate Sodium (Colace -) 300 mg PO [facility] Last Admin: 04/05/17 21:41 Dose: 300 mg Gabapentin (Neurontin -) 100 mg PO BID [facility] Last Admin: 04/06/17 16:17 Dose: 100 mg Haloperidol (Haldol Injection (Fast Acting) -) 2 mg IM Q4H PRN PRN Reason: AGITATION Last Admin: 04/06/17 11:50 Dose: 2 mg Lorazepam (Ativan Injection -) 0.5 mg IVPUSH BID PRN PRN Reason: ANXIETY Midodrine (Proamatine -) 10 mg PO TID-MID [facility] Last Admin: 04/06/17 15:39 Dose: Not Given Ondansetron HCl (Zofran Injection) 4 mg IVPUSH Q6H PRN PRN Reason: NAUSEA AND/OR VOMITING Oxycodone HCl (Roxicodone -) 5 mg PO Q4H PRN PRN Reason: PAIN Last Admin: 04/06/17 16:18 Dose: 5 mg Quetiapine Fumarate (Seroquel -) 25 mg PO BID [facility] Last Admin: 04/06/17 09:42 Dose: 25 mg Ranitidine HCl (Zantac Oral Solution -) 150 mg PO DAILY [facility] Last Admin: 04/06/17 09:42 Dose: 150 mg Rosuvastatin Calcium (Crestor -) 5 mg PO [facility] Last Admin: 04/05/17 21:41 Dose: 5 mg Silver Sulfadiazine (Silvadene -) 1 applic TP BID [facility] Last Admin: 04/06/17 16:18 Dose: 1 applic Sucralfate (Carafate Oral Suspension -) 0.5 gm PO BID [facility] Last Admin: 04/06/17 09:41 Dose: 0.5 gm Warfarin Sodium (Coumadin -) 5 mg PO DAILY@1800 [facility] Last Admin: 04/05/17 17:57 Dose: 5 mg - Objective Vital Signs: Vital Signs Temperature 98.5 F 04/06/17 08:00 Pulse Rate 88 04/06/17 17:02 Respiratory Rate 20 04/06/17 17:02 Blood Pressure 106/65 04/06/17 17:02 O2 Sat by Pulse Oximetry (%) 96 04/03/17 21:00 Constitutional: Yes: No Distress, Calm Cardiovascular: Yes: Regular Rate and Rhythm Respiratory: Yes: Regular, CTA Bilaterally Gastrointestinal: Yes: Normal Bowel Sounds, Soft Musculoskeletal: Yes: Other Extremities: Yes: Other (amputaton site good) Integumentary: Yes: Other Wound/Incision: Yes: Clean/Dry, Well Approximated Neurological: Yes: Alert Psychiatric: Yes: Alert Labs: CBC, BMP 04/06/17 12:58 04/06/17 12:58 INR, PTT INR 3.36 (0.82-1.09) H D 04/06/17 13:00 Fibrinogen 296.0 mg/dL (238-498) D 03/30/17 06:10 Assessment/Plan Problem List - Problems (1) Anemia Code(s): D64.9 - ANEMIA, UNSPECIFIED (2) Critical lower limb ischemia Code(s): I99.8 - OTHER DISORDER OF CIRCULATORY SYSTEM (3) ESRD (end stage renal disease) Code(s): N18.6 - END STAGE RENAL DISEASE (4) HTN (hypertension) Code(s): I10 - ESSENTIAL (PRIMARY) HYPERTENSION (5) Open wnd foot-complicated Code(s): S91.309A - UNSPECIFIED OPEN WOUND, UNSPECIFIED FOOT, INITIAL ENCOUNTER cardiomyopathy gangrene of the foot plan continue to watch off of abx rest as per primary continue dialysis rest as per primary team
--- NOTE | 2017-04-06 17:58 | PN ---
Progress Note, Physician History of Present Illness: Sensorium improved, more interactive. - Current Medication List Current Medications: Active Medications Acetaminophen (Ofirmev Injection -) 1,000 mg IVPB Q6H PRN PRN Reason: FEVER OR PAIN Last Admin: 04/03/17 05:39 Dose: 1,000 mg Amino Acids (Prosource No Carb Liquid Pkt) 30 ml PO BID@0800,1730 [facility] Last Admin: 04/06/17 17:41 Dose: 30 ml Budesonide/Formoterol Fumarate (Symbicort 80/4.5mcg -) 2 puff IH BID [facility] Last Admin: 04/06/17 09:43 Dose: Not Given Carvedilol (Coreg -) 3.125 mg PO BID [facility] Last Admin: 04/06/17 09:41 Dose: 3.125 mg Diphenhydramine HCl (Benadryl -) 25 mg PO Q6H PRN PRN Reason: FOR ITCHING Docusate Sodium (Colace -) 300 mg PO [facility] Last Admin: 04/05/17 21:41 Dose: 300 mg Gabapentin (Neurontin -) 100 mg PO BID [facility] Last Admin: 04/06/17 16:17 Dose: 100 mg Haloperidol (Haldol Injection (Fast Acting) -) 2 mg IM Q4H PRN PRN Reason: AGITATION Last Admin: 04/06/17 11:50 Dose: 2 mg Lorazepam (Ativan Injection -) 0.5 mg IVPUSH BID PRN PRN Reason: ANXIETY Midodrine (Proamatine -) 10 mg PO TID-MID [facility] Last Admin: 04/06/17 15:39 Dose: Not Given Ondansetron HCl (Zofran Injection) 4 mg IVPUSH Q6H PRN PRN Reason: NAUSEA AND/OR VOMITING Oxycodone HCl (Roxicodone -) 5 mg PO Q4H PRN PRN Reason: PAIN Last Admin: 04/06/17 16:18 Dose: 5 mg Quetiapine Fumarate (Seroquel -) 25 mg PO BID [facility] Last Admin: 04/06/17 09:42 Dose: 25 mg Ranitidine HCl (Zantac Oral Solution -) 150 mg PO DAILY [facility] Last Admin: 04/06/17 09:42 Dose: 150 mg Rosuvastatin Calcium (Crestor -) 5 mg PO [facility] Last Admin: 04/05/17 21:41 Dose: 5 mg Silver Sulfadiazine (Silvadene -) 1 applic TP BID [facility] Last Admin: 04/06/17 16:18 Dose: 1 applic Sucralfate (Carafate Oral Suspension -) 0.5 gm PO BID [facility] Last Admin: 04/06/17 09:41 Dose: 0.5 gm Warfarin Sodium (Coumadin -) 5 mg PO DAILY@1800 [facility] Last Admin: 04/05/17 17:57 Dose: 5 mg - Objective Vital Signs: Vital Signs Temperature 98.5 F 04/06/17 08:00 Pulse Rate 88 04/06/17 17:02 Respiratory Rate 20 04/06/17 17:02 Blood Pressure 106/65 04/06/17 17:02 O2 Sat by Pulse Oximetry (%) 96 04/03/17 21:00 Constitutional: Yes: No Distress, Calm Neck: Yes: Supple Cardiovascular: Yes: Pulse Irregular Respiratory: Yes: Regular, Diminished Gastrointestinal: Yes: Normal Bowel Sounds, Soft Extremities: Yes: Amputation Edema: No Labs: CBC, BMP 04/06/17 12:58 04/06/17 12:58 INR, PTT INR 3.36 (0.82-1.09) H D 04/06/17 13:00 Fibrinogen 296.0 mg/dL (238-498) D 03/30/17 06:10 Problem List - Problems (1) Critical lower limb ischemia Code(s): I99.8 - OTHER DISORDER OF CIRCULATORY SYSTEM (2) HLD (hyperlipidemia) Code(s): E78.5 - HYPERLIPIDEMIA, UNSPECIFIED Qualifiers: Hyperlipidemia type: pure hypercholesterolemia Qualified Code(s): E78.00 - Pure hypercholesterolemia, unspecified (3) HTN (hypertension) Code(s): I10 - ESSENTIAL (PRIMARY) HYPERTENSION Qualifiers: Hypertension type: essential hypertension Qualified Code(s): I10 - Essential (primary) hypertension (4) ESRD (end stage renal disease) Code(s): N18.6 - END STAGE RENAL DISEASE (5) Atrial fibrillation Code(s): I48.91 - UNSPECIFIED ATRIAL FIBRILLATION Qualifiers: Atrial fibrillation type: persistent Qualified Code(s): I48.1 - Persistent atrial fibrillation (6) Amputated toe of left foot Code(s): Z89.422 - ACQUIRED ABSENCE OF OTHER LEFT TOE(S) (7) S/P AKA (above knee amputation) Code(s): Z89.619 - ACQUIRED ABSENCE OF UNSPECIFIED LEG ABOVE KNEE Qualifiers: Laterality: right Qualified Code(s): Z89.611 - Acquired absence of right leg above knee (8) Cardiomyopathy Code(s): I42.9 - CARDIOMYOPATHY, UNSPECIFIED Qualifiers: Cardiomyopathy type: unspecified Qualified Code(s): I42.9 - Cardiomyopathy , unspecified (9) Systolic dysfunction, left ventricle Code(s): I51.9 - HEART DISEASE, UNSPECIFIED (10) Anticoagulant long-term use Code(s): Z79.01 - ELECTRICIAN (CURRENT) USE OF ANTICOAGULANTS (11) Thrombocytopenia Code(s): D69.6 - THROMBOCYTOPENIA, UNSPECIFIED (12) Peripheral arterial disease Code(s): I73.9 - PERIPHERAL VASCULAR DISEASE, UNSPECIFIED Assessment/Plan Echocardiography reveals severely reduced LV systolic function, severe TR, moderate pulmonary HTN, mild AR, severely dilated LA and RA 1. PAD post right AKA and left toe amputation, occluded left SFA post angioplasty/stent, post left BKA 2. CAD angina pectoris 3. Dilated cardiomyopathy with chronic class I-II NYHA classification LV systolic failure, compensated/ euvolemic 4. Persistent atrial fibrillation [id number] score of 4 supratherapeutic INR 5. Severe TR with pulmonary HTN 6. HTN 7. ESRD on HD (T, TH, S) 8. History of DVT 9. Anemia 10. Thrombocytopenia PLAN: 1. Continue Coreg 3.125 bid, hemodynamics permitting 2. Continue Crestor 5 qhs 3. HD as per renal service, replete K 4. Continue coumadin per INR 2-3 5. Completed abx course 6. D/c plannning
[2017-04-06] MEDS: ROSUVASTATIN CA 5 MG TABLET (FP) PO SCH (22:24)
[2017-04-06] MEDS: DOCUSATE SODIUM 100 MG CAPSULE (FP) PO SCH (22:24)
[2017-04-07 09:06] LABS: BASOPHIL 0.5 % (0-2.0); EOSINOPHIL 0.7 % (0-4.5); MCH 28.7 pg (25.7-33.7); MCHC 31.3 g/dl (32.0-35.9); MEAN CELL VOLUME 91.9 fl (80-96); MEAN PLT VOLUME 7.9 fl (7.5-11.1); NEUTROPHILS 86.8 % (42.8-82.8); PLATELET COUNT 69 K/MM3 (134-434); RDW 22.8 % (11.9-15.9)
[2017-04-07] MEDS ORDERED: PT OWN MED DRAWER 7, Y5N ONE (09:12)
--- NOTE | 2017-04-07 09:13 | PN ---
Progress Note, Physician Chief Complaint: S/P SFA angioplasty and stent Post left BKA Not in distress History of Present Illness: Patient was seen and examined. Awake. Chart was reviewed Denies chest pain or SOB - Current Medication List Current Medications: Active Medications Acetaminophen (Ofirmev Injection -) 1,000 mg IVPB Q6H PRN PRN Reason: FEVER OR PAIN Last Admin: 04/03/17 05:39 Dose: 1,000 mg Amino Acids (Prosource No Carb Liquid Pkt) 30 ml PO BID@0800,1730 [facility] Last Admin: 04/06/17 17:41 Dose: 30 ml Budesonide/Formoterol Fumarate (Symbicort 80/4.5mcg -) 2 puff IH BID [facility] Last Admin: 04/06/17 22:56 Dose: Not Given Carvedilol (Coreg -) 3.125 mg PO BID [facility] Last Admin: 04/06/17 22:24 Dose: 3.125 mg Diphenhydramine HCl (Benadryl -) 25 mg PO Q6H PRN PRN Reason: FOR ITCHING Docusate Sodium (Colace -) 300 mg PO HS [facility] Last Admin: 04/06/17 22:24 Dose: 300 mg Gabapentin (Neurontin -) 100 mg PO BID [facility] Last Admin: 04/06/17 22:24 Dose: 100 mg Haloperidol (Haldol Injection (Fast Acting) -) 2 mg IM Q4H PRN PRN Reason: AGITATION Last Admin: 04/06/17 11:50 Dose: 2 mg Lorazepam (Ativan Injection -) 0.5 mg IVPUSH BID PRN PRN Reason: ANXIETY Midodrine (Proamatine -) 10 mg PO TID-MID [facility] Last Admin: 04/06/17 18:47 Dose: 10 mg Ondansetron HCl (Zofran Injection) 4 mg IVPUSH Q6H PRN PRN Reason: NAUSEA AND/OR VOMITING Oxycodone HCl (Roxicodone -) 5 mg PO Q4H PRN PRN Reason: PAIN Last Admin: 04/06/17 16:18 Dose: 5 mg Quetiapine Fumarate (Seroquel -) 25 mg PO BID [facility] Last Admin: 04/06/17 22:24 Dose: 25 mg Ranitidine HCl (Zantac Oral Solution -) 150 mg PO DAILY [facility] Last Admin: 04/06/17 09:42 Dose: 150 mg Rosuvastatin Calcium (Crestor -) 5 mg PO HS [facility] Last Admin: 04/06/17 22:24 Dose: 5 mg Silver Sulfadiazine (Silvadene -) 1 applic TP BID [facility] Last Admin: 04/06/17 22:26 Dose: 1 applic Sucralfate (Carafate Oral Suspension -) 0.5 gm PO BID [facility] Last Admin: 04/06/17 22:24 Dose: 0.5 gm Warfarin Sodium (Coumadin -) 5 mg PO DAILY@1800 [facility] Last Admin: 04/05/17 17:57 Dose: 5 mg - Objective Vital Signs: Vital Signs Temperature 98.3 F 04/07/17 06:09 Pulse Rate 84 04/07/17 06:09 Respiratory Rate 20 04/07/17 06:09 Blood Pressure 82/62 04/07/17 06:09 O2 Sat by Pulse Oximetry (%) 95 04/06/17 21:00 Neck: Yes: Supple Cardiovascular: Yes: Regular Rate and Rhythm, S1, S2 Respiratory: Yes: Diminished Gastrointestinal: Yes: Normal Bowel Sounds, Soft. No: Tenderness Extremities: Yes: Amputation Labs: CBC, BMP 04/07/17 08:15 INR, PTT INR 3.36 (0.82-1.09) H D 04/06/17 13:00 Fibrinogen 296.0 mg/dL (238-498) D 03/30/17 06:10 Problem List - Problems (1) Critical lower limb ischemia Code(s): I99.8 - OTHER DISORDER OF CIRCULATORY SYSTEM (2) HLD (hyperlipidemia) Code(s): E78.5 - HYPERLIPIDEMIA, UNSPECIFIED Qualifiers: Hyperlipidemia type: pure hypercholesterolemia Qualified Code(s): E78.00 - Pure hypercholesterolemia, unspecified (3) HTN (hypertension) Code(s): I10 - ESSENTIAL (PRIMARY) HYPERTENSION Qualifiers: Hypertension type: essential hypertension Qualified Code(s): I10 - Essential (primary) hypertension (4) ESRD (end stage renal disease) Code(s): N18.6 - END STAGE RENAL DISEASE (5) Anemia Code(s): D64.9 - ANEMIA, UNSPECIFIED (6) Atrial fibrillation Code(s): I48.91 - UNSPECIFIED ATRIAL FIBRILLATION Qualifiers: Atrial fibrillation type: persistent Qualified Code(s): I48.1 - Persistent atrial fibrillation (7) Amputated toe of left foot Code(s): Z89.422 - ACQUIRED ABSENCE OF OTHER LEFT TOE(S) (8) S/P AKA (above knee amputation) Code(s): Z89.619 - ACQUIRED ABSENCE OF UNSPECIFIED LEG ABOVE KNEE Qualifiers: Laterality: right Qualified Code(s): Z89.611 - Acquired absence of right leg above knee (9) Cardiomyopathy Code(s): I42.9 - CARDIOMYOPATHY, UNSPECIFIED Qualifiers: Cardiomyopathy type: unspecified Qualified Code(s): I42.9 - Cardiomyopathy , unspecified (10) Systolic dysfunction, left ventricle Code(s): I51.9 - HEART DISEASE, UNSPECIFIED Assessment/Plan 1. PAD post right AKA and left toe amputation, occluded left SFA post angioplasty/stent, post left BKA 2. CAD angina pectoris 3. Dilated cardiomyopathy with chronic class I-II NYHA classification LV systolic failure, compensated/ euvolemic 4. Persistent atrial fibrillation [id number] score of 4 supratherapeutic INR 5. Severe TR with pulmonary HTN 6. HTN 7. ESRD on HD 8. History of DVT 9. Anemia 10. Thrombocytopenia PLAN: 1. Continue Coreg 2. Continue Crestor 3. HD as per renal service and replete K 4. Continue Coumadin per INR 2-3 Further plans are to follow Elias Landrum MD
[2017-04-07 09:15] LABS: INR 3.1 (0.82-1.09)
[2017-04-07 09:17] LABS: ALBUMIN 1.9 g/dl (3.4-5.0); ALK PHOS 87 U/L (45-117); ANION GAP 8 (8-16); BILIRUBIN,TOTAL 0.5 mg/dL (0.2-1.0); CALCIUM 7.8 mg/dL (8.5-10.1); CO2 32 mmol/L (21-32); CREATININE 5.7 mg/dL (0.7-1.3); GLUCOSE,RANDOM 90 mg/dL (74-106); SGOT/AST 9 U/L (15-37); SGPT/ALT 8 U/L (12-78); TOT PROT 4.8 g/dl (6.4-8.2)
--- NOTE | 2017-04-07 09:20 | PN ---
Progress Note (short form) - Note Progress Note: Patient seen and examined Lying in bed in restraints. 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 Skin: No rashes, Integument intact CBC, BMP 04/07/17 08:15 Current Medications Generic Name Dose Route Start Last Admin Trade Name Freq PRN Reason Stop Dose Admin Acetaminophen 1,000 mg 04/01/17 17:31 04/03/17 05:39 Ofirmev Injection - IVPB 1,000 mg Q6H PRN Administration FEVER OR PAIN Amino Acids 30 ml 04/02/17 11:00 04/06/17 17:41 Prosource No Carb Liquid Pkt PO 30 ml BID@0800,1730 [facility] Administration Budesonide/Formoterol Fumarate 2 puff 04/01/17 22:00 04/06/17 22:56 Symbicort 80/4.5mcg - IH Not Given BID [facility] Carvedilol 3.125 mg 04/01/17 22:00 04/06/17 22:24 Coreg - PO 3.125 mg BID [facility] Administration Diphenhydramine HCl 25 mg 04/01/17 17:31 Benadryl - PO Q6H PRN FOR ITCHING Docusate Sodium 300 mg 04/01/17 22:00 04/06/17 22:24 Colace - PO 300 mg HS [facility] Administration Gabapentin 100 mg 04/06/17 10:00 04/06/17 22:24 Neurontin - PO 100 mg BID [facility] Administration Haloperidol 2 mg 04/04/17 16:53 04/06/17 11:50 Haldol Injection (Fast Acting) - IM 2 mg Q4H PRN Administration AGITATION Lorazepam 0.5 mg 04/06/17 13:37 Ativan Injection - IVPUSH BID PRN ANXIETY Midodrine 10 mg 04/01/17 18:00 11/22/17 18:47 Proamatine - PO 10 mg TID-MID [facility] Administration Ondansetron HCl 4 mg 04/01/17 17:31 Zofran Injection IVPUSH Q6H PRN NAUSEA AND/OR VOMITING Oxycodone HCl 5 mg 04/05/17 11:09 04/06/17 16:18 Roxicodone - PO 5 mg Q4H PRN Administration PAIN Quetiapine Fumarate 25 mg 04/02/17 10:50 04/06/17 22:24 Seroquel - PO 25 mg BID [facility] Administration Ranitidine HCl 150 mg 04/02/17 10:00 04/06/17 09:42 Zantac Oral Solution - PO 150 mg DAILY [facility] Administration Rosuvastatin Calcium 5 mg 04/01/17 22:00 04/06/17 22:24 Crestor - PO 5 mg HS [facility] Administration Silver Sulfadiazine 1 applic 04/06/17 13:45 04/06/17 22:26 Silvadene - TP 1 applic BID [facility] Administration Sucralfate 0.5 gm 04/01/17 22:00 04/06/17 22:24 Carafate Oral Suspension - PO 0.5 gm BID [facility] Administration Warfarin Sodium 5 mg 04/03/17 18:00 04/05/17 17:57 Coumadin - PO 5 mg DAILY@1800 [facility] Administration Impression PAD- s/p BKA Cardiomyopathy Coagulopathy Thrombocytopenia PLAN:: Suspect occult liver disease as etiology for coagulopathy- ?contributing to thrombocytopenia Continuing a/c per INR.
[2017-04-07] MEDS: GABAPENTIN 100 MG CAPSULE (FP) PO SCH ×2 (11:23→22:03)
[2017-04-07] MEDS: SUCRALFATE 1 GM/10 ML UNIT DOSE CUPS PO SCH ×2 (11:23→22:14)
[2017-04-07] MEDS: MIDODRINE HCL 5 MG TABLET PO SCH ×3 (11:24→18:01)
[2017-04-07] MEDS: AMINO ACIDS/PROTEIN HYDROLYS 30 ML LIQUID.PKT PO SCH ×2 (11:24→18:02)
[2017-04-07] MEDS: RANITIDINE HCL 150 MG/10 ML UNIT-DOSE PO SCH (11:24)
[2017-04-07] MEDS: CARVEDILOL 3.125 MG TABLET (FP) PO SCH ×2 (11:25→22:03)
[2017-04-07] MEDS: SILVER SULFADIAZINE 1% TOP CREAM 400 GM JAR TP SCH ×2 (11:25→22:20)
[2017-04-07] MEDS: QUEtiapine FUMARATE 25 MG TABLET (FP) PO SCH ×2 (11:25→22:03)
[2017-04-07] MEDS: BUDESONIDE/FORMETEROL FUMARATE 80/4.5 mcg INHALER IH SCH ×2 (11:25→22:15)
[2017-04-07] MEDS ORDERED: ACETAMINOPHEN 325 MG TABLET (FP) ONE (11:39)
[2017-04-07] MEDS: oxyCODONE HCL 5 MG TABLET PO PRN (11:51)
--- NOTE | 2017-04-07 11:55 | PN ---
Physical Exam: SUBJECTIVE: Patient seen and examined at the bedside. OBJECTIVE: Vital Signs Period Temp Pulse Resp BP Sys/Coleman Pulse Ox Last 24 Hr 8 F-98.3 F 75-94 16-20 69-116/50-67 95 GENERAL: Asleep during exam, naun vest and mittens discontinued HEAD: Normal with no signs of trauma. NECK: Normal range of motion, supple without lymphadenopathy, JVD, or masses. LUNGS: Breath sounds diminished bilaterall, no wheezing, +fine crackles on right mid lobe, oxygen stable on room air HEART: irregular heart rate, hx of afib ABDOMEN: Soft, nontender, not distended, normoactive bowel sounds, no guarding, no rebound, no masses. No hepatomegaly or splenomegaly. 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, on immobilizer, wrapped stoma SKIN: Sacral stage II, present on admission, not viewed, changed by primary RN Laboratory Results - last 24 hr 04/06/17 04/06/17 04/06/17 12:58 12:58 13:00 WBC 14.7 H D RBC 3.72 L Hgb 10.7 L Hct 34.1 L MCV 91.5 MCH 28.8 MCHC 31.4 L RDW 22.9 H Plt Count 86 L MPV 8.3 Neutrophils % Lymphocytes % Monocytes % Eosinophils % Basophils % PT with INR 38.00 H INR 3.36 H D Sodium 146 H Potassium 3.4 L D Chloride 105 Carbon Dioxide 28 Anion Gap 13 BUN 49 H D Creatinine 6.7 H D Creat Clearance w eGFR Random Glucose 124 H D Calcium 8.2 L Phosphorus 2.4 L Total Bilirubin AST ALT Alkaline Phosphatase Total Protein Albumin 04/07/17 04/07/17 04/07/17 08:15 08:15 08:15 WBC 10.0 D RBC 3.75 L Hgb 10.8 L Hct 34.4 L MCV 91.9 MCH 28.7 MCHC 31.3 L RDW 22.8 H Plt Count 69 L MPV 7.9 Neutrophils % 86.8 H Lymphocytes % 5.6 L Monocytes % 6.4 Eosinophils % 0.7 Basophils % 0.5 PT with INR 35.00 H INR 3.10 H Sodium 145 Potassium 3.4 L Chloride 105 Carbon Dioxide 32 Anion Gap 8 BUN 35 H D Creatinine 5.7 H Creat Clearance w eGFR 9.75 Random Glucose 90 D Calcium 7.8 L Phosphorus Total Bilirubin 0.5 AST 9 L D ALT 8 L Alkaline Phosphatase 87 Total Protein 4.8 L Albumin 1.9 L Active Medications Generic Name Dose Route Start Last Admin Trade Name Freq PRN Reason Stop Dose Admin Acetaminophen 1,000 mg 04/01/17 17:31 04/03/17 05:39 Ofirmev Injection - IVPB 1,000 mg Q6H PRN Administration FEVER OR PAIN Amino Acids 30 ml 04/02/17 11:00 04/07/17 11:24 Prosource No Carb Liquid Pkt PO 30 ml BID@0800,1730 [facility] Administration Budesonide/Formoterol Fumarate 2 puff 04/01/17 22:00 04/07/17 11:25 Symbicort 80/4.5mcg - IH 2 puff BID [facility] Administration Carvedilol 3.125 mg 04/01/17 22:00 04/07/17 11:25 Coreg - PO 3.125 mg BID [facility] Administration Diphenhydramine HCl 25 mg 04/01/17 17:31 Benadryl - PO Q6H PRN FOR ITCHING Docusate Sodium 300 mg 04/01/17 22:00 04/06/17 22:24 Colace - PO 300 mg HS [facility] Administration Gabapentin 100 mg 04/06/17 10:00 04/07/17 11:23 Neurontin - PO 100 mg BID [facility] Administration Haloperidol 2 mg 04/04/17 16:53 04/06/17 11:50 Haldol Injection (Fast Acting) - IM 2 mg Q4H PRN Administration AGITATION Lorazepam 0.5 mg 04/06/17 13:37 Ativan Injection - IVPUSH BID PRN ANXIETY Midodrine 10 mg 04/01/17 18:00 04/07/17 11:24 Proamatine - PO 10 mg TID-MID [facility] Administration Ondansetron HCl 4 mg 04/01/17 17:31 Zofran Injection IVPUSH Q6H PRN NAUSEA AND/OR VOMITING Oxycodone HCl 5 mg 04/05/17 11:09 04/07/17 11:51 Roxicodone - PO 5 mg Q4H PRN Administration PAIN Quetiapine Fumarate 25 mg 04/02/17 10:50 04/07/17 11:25 Seroquel - PO 25 mg BID [facility] Administration Ranitidine HCl 150 mg 04/02/17 10:00 04/07/17 11:24 Zantac Oral Solution - PO 150 mg DAILY [facility] Administration Rosuvastatin Calcium 5 mg 04/01/17 22:00 04/06/17 22:24 Crestor - PO 5 mg HS [facility] Administration Silver Sulfadiazine 1 applic 04/06/17 13:45 04/07/17 11:25 Silvadene - TP 1 applic BID [facility] Administration Sucralfate 0.5 gm 04/01/17 22:00 04/07/17 11:23 Carafate Oral Suspension - PO 0.5 gm BID [facility] Administration ASSESSMENTASSESSMENT/PLAN: Patient is a 77 year old male with a significant past medical history of ESRD HD (T,,), atrial fib, hypertension, DVT, right AKA, s/p left 2nd digit amputation lower extremity. He presented to the ED on 03/14/2017 for critical ischemia of left lower extremity. Patient is Croatian speaking only and family reports having increased swelling to his left lower extremity. Pt comes with right AKA and a left middle toe amputation that was performed 3 weeks ago in [facility], where pt has been living for the past several years. Patient has medical records from [facility] in his file. Patient had a left BKA on 03/31/2017 for septic left foot/leg. Imagin03/14/2017: CT/Abdomen CTA AOR & RLE Runoff: Extensive severe diffuse aortoiliac , femoro-popliteal and intrapopliteal, occluded left SFA and mucus occlusion of flow in a severely diseased the renal artery demonstrates at lease 70-90% stenosis. Occluded left ENMANUEL and two vessel runoff provided by [employer] and PA however degree of disease and stenosis cannot be discerned due to calcification and hardening artifacts. enlarged prostate. Small right sided pleural effusion with severe right lung base atelectic changes vs pnemonic infiltrates. 03/14/2017: US/Duplex arterial legs, limited ultrasound: Extensive artheroscleoric disease with occlusion of the SFA. There is weak, monosphasic flow present within the popliteal and posterior tibial arteries. Abdominal CTA 03/27/2017 (1) infrarenal abdominal aortic aneurysm measuring 4.6cm, similar to CTA seen on imaging 03/14/17, no dissection seen. (2) Bilateral ectatic common iliac arteries measuring up to 1.9 cm with severe calcific alherosclerosis. (3) severe high grade ostial stenosis of bilateral renal arteries with near complete occlusion. (4) significant calcific altherosclerosis at the ostia of the celiac trunk and SMA likely resulting in less than 50% stenosis (5) Calcification of the aortic valve, prominent left coronary cusp, (6) incompletely imaged bilateral pleural effusions (7) cirrhotic configuration of the liver and evidence of portal hypertension with spenomegaly. (8) apparent wall thickent of nearl the entire colon (9) marked enlargement of the prostate gland. Vascular/ID: Sepsis secondary to ischemic Left foot, BKA on 04/01, resolved Vanco and Zosyn stopped on 04/04/2017 Remove eliezer in 1 week Hematology: Coagulopathy (prolonged PTT/PT) Thrombocytopenia, s/p platelet infusion on 04/01 Neuro: Acute Metabolic Encephalopathy likely secondary to septic left foot, improving S/P left BKA Renal: ESRD, HD (on TThS) via right upper arm fistula Last dialysis yesterday Cardiology: Supra therapeutic INR for Atrial Fibrillation Coumadin on hold for now, INR in a.m. Hypertension, chronic but now with hypotension, parameters added to BP meds Cardiology following CAD Coreg 3.125mg BID, Crestor 5mg HS Psyche: Agitation, delirium Haldol, Seroquel 25mg BID Hematology: Anemia, likely chronic 2/2 to ESRD Monitor hmg/hct Heme following F.E.N. Fluids: 1.2 liter fluid restriction, tolerating PO Electrolytes: monitor Nutrition: renal diet Prophylaxis: GI: deferred DVT: supratherapeutic INR, hold coumadin today, fall risk Disposition: Requires inpatient hospitalization. Full code. Visit type - Emergency Visit Emergency Visit: Yes ED Registration Date: 03/14/17 Care time: The patient presented to the Emergency Department on the above date and was hospitalized for further evaluation of their emergent condition. - New Patient This patient is new to me today: No - Critical Care Critical Care patient: No - Discharge Referral Referred to [facility] No
[2017-04-07] MEDS: DOCUSATE SODIUM 100 MG CAPSULE (FP) PO SCH (22:04)
[2017-04-07] MEDS: ROSUVASTATIN CA 5 MG TABLET (FP) PO SCH (22:04)
--- NOTE | 2017-04-08 08:46 | PN ---
Progress Note, Physician History of Present Illness: stable no new events post op - Current Medication List Current Medications: Active Medications Acetaminophen (Ofirmev Injection -) 1,000 mg IVPB Q6H PRN PRN Reason: FEVER OR PAIN Last Admin: 04/03/17 05:39 Dose: 1,000 mg Amino Acids (Prosource No Carb Liquid Pkt) 30 ml PO BID@0800,1730 [facility] Last Admin: 04/07/17 18:02 Dose: 30 ml Budesonide/Formoterol Fumarate (Symbicort 80/4.5mcg -) 2 puff IH BID [facility] Last Admin: 04/07/17 22:15 Dose: 2 puff Carvedilol (Coreg -) 3.125 mg PO BID [facility] Last Admin: 04/07/17 22:03 Dose: 3.125 mg Diphenhydramine HCl (Benadryl -) 25 mg PO Q6H PRN PRN Reason: FOR ITCHING Docusate Sodium (Colace -) 300 mg PO [facility] Last Admin: 04/07/17 22:04 Dose: 300 mg Gabapentin (Neurontin -) 100 mg PO BID [facility] Last Admin: 04/07/17 22:03 Dose: 100 mg Haloperidol (Haldol Injection (Fast Acting) -) 2 mg IM Q4H PRN PRN Reason: AGITATION Last Admin: 04/06/17 11:50 Dose: 2 mg Lorazepam (Ativan Injection -) 0.5 mg IVPUSH BID PRN PRN Reason: ANXIETY Midodrine (Proamatine -) 10 mg PO TID-MID [facility] Last Admin: 04/07/17 18:01 Dose: 10 mg Ondansetron HCl (Zofran Injection) 4 mg IVPUSH Q6H PRN PRN Reason: NAUSEA AND/OR VOMITING Oxycodone HCl (Roxicodone -) 5 mg PO Q4H PRN PRN Reason: PAIN Last Admin: 04/07/17 11:51 Dose: 5 mg Quetiapine Fumarate (Seroquel -) 25 mg PO BID [facility] Last Admin: 04/07/17 22:03 Dose: 25 mg Ranitidine HCl (Zantac Oral Solution -) 150 mg PO DAILY [facility] Last Admin: 04/07/17 11:24 Dose: 150 mg Rosuvastatin Calcium (Crestor -) 5 mg PO HS [facility] Last Admin: 04/07/17 22:04 Dose: 5 mg Silver Sulfadiazine (Silvadene -) 1 applic TP BID [facility] Last Admin: 04/07/17 22:20 Dose: 1 applic Sucralfate (Carafate Oral Suspension -) 0.5 gm PO BID [facility] Last Admin: 04/07/17 22:14 Dose: 0.5 gm - Objective Vital Signs: Vital Signs Temperature 99 F 04/08/17 06:00 Pulse Rate 83 04/08/17 06:00 Respiratory Rate 20 04/08/17 06:00 Blood Pressure 102/58 04/08/17 06:00 O2 Sat by Pulse Oximetry (%) 95 04/07/17 21:00 Constitutional: Yes: No Distress, Calm Cardiovascular: Yes: Regular Rate and Rhythm Respiratory: Yes: Regular, CTA Bilaterally Gastrointestinal: Yes: Normal Bowel Sounds, Soft Musculoskeletal: Yes: Other Extremities: Yes: Other Wound/Incision: Yes: Dressing Dry and Intact Neurological: Yes: Alert Labs: CBC, BMP 04/07/17 08:15 04/07/17 08:15 INR, PTT INR 3.10 (0.82-1.09) H 04/07/17 08:15 Fibrinogen 296.0 mg/dL (238-498) D 03/30/17 06:10 Assessment/Plan Problem List - Problems (1) Anemia Code(s): D64.9 - ANEMIA, UNSPECIFIED (2) Critical lower limb ischemia Code(s): I99.8 - OTHER DISORDER OF CIRCULATORY SYSTEM (3) ESRD (end stage renal disease) Code(s): N18.6 - END STAGE RENAL DISEASE (4) HTN (hypertension) Code(s): I10 - ESSENTIAL (PRIMARY) HYPERTENSION (5) Open wnd foot-complicated Code(s): S91.309A - UNSPECIFIED OPEN WOUND, UNSPECIFIED FOOT, INITIAL ENCOUNTER cardiomyopathy gangrene of the foot plan continue to watch off of abx rest as per primary continue dialysis rest as per primary team all cx noted
--- NOTE | 2017-04-08 09:32 | PN ---
Progress Note, Physician Chief Complaint: S/P SFA angioplasty and stent Post left BKA Not in distress History of Present Illness: Patient was seen and examined. Awake. Chart was reviewed Denies chest pain or SOB - Current Medication List Current Medications: Active Medications Acetaminophen (Ofirmev Injection -) 1,000 mg IVPB Q6H PRN PRN Reason: FEVER OR PAIN Last Admin: 04/03/17 05:39 Dose: 1,000 mg Amino Acids (Prosource No Carb Liquid Pkt) 30 ml PO BID@0800,1730 [facility] Last Admin: 04/07/17 18:02 Dose: 30 ml Budesonide/Formoterol Fumarate (Symbicort 80/4.5mcg -) 2 puff IH BID [facility] Last Admin: 04/07/17 22:15 Dose: 2 puff Carvedilol (Coreg -) 3.125 mg PO BID [facility] Last Admin: 04/07/17 22:03 Dose: 3.125 mg Diphenhydramine HCl (Benadryl -) 25 mg PO Q6H PRN PRN Reason: FOR ITCHING Docusate Sodium (Colace -) 300 mg PO HS [facility] Last Admin: 04/07/17 22:04 Dose: 300 mg Gabapentin (Neurontin -) 100 mg PO BID [facility] Last Admin: 04/07/17 22:03 Dose: 100 mg Haloperidol (Haldol Injection (Fast Acting) -) 2 mg IM Q4H PRN PRN Reason: AGITATION Last Admin: 04/06/17 11:50 Dose: 2 mg Lorazepam (Ativan Injection -) 0.5 mg IVPUSH BID PRN PRN Reason: ANXIETY Midodrine (Proamatine -) 10 mg PO TID-MID [facility] Last Admin: 04/07/17 18:01 Dose: 10 mg Ondansetron HCl (Zofran Injection) 4 mg IVPUSH Q6H PRN PRN Reason: NAUSEA AND/OR VOMITING Oxycodone HCl (Roxicodone -) 5 mg PO Q4H PRN PRN Reason: PAIN Last Admin: 04/07/17 11:51 Dose: 5 mg Quetiapine Fumarate (Seroquel -) 25 mg PO BID [facility] Last Admin: 04/07/17 22:03 Dose: 25 mg Ranitidine HCl (Zantac Oral Solution -) 150 mg PO DAILY [facility] Last Admin: 04/07/17 11:24 Dose: 150 mg Rosuvastatin Calcium (Crestor -) 5 mg PO HS [facility] Last Admin: 04/07/17 22:04 Dose: 5 mg Silver Sulfadiazine (Silvadene -) 1 applic TP BID [facility] Last Admin: 04/07/17 22:20 Dose: 1 applic Sucralfate (Carafate Oral Suspension -) 0.5 gm PO BID [facility] Last Admin: 04/07/17 22:14 Dose: 0.5 gm - Objective Vital Signs: Vital Signs Temperature 99 F 04/08/17 06:00 Pulse Rate 83 04/08/17 06:00 Respiratory Rate 20 04/08/17 06:00 Blood Pressure 102/58 04/08/17 06:00 O2 Sat by Pulse Oximetry (%) 95 04/07/17 21:00 Neck: Yes: Supple Cardiovascular: Yes: Regular Rate and Rhythm, S1, S2 Respiratory: Yes: Diminished Gastrointestinal: Yes: Normal Bowel Sounds, Soft. No: Tenderness Extremities: Yes: Amputation Edema: No Labs: CBC, BMP 04/07/17 08:15 04/07/17 08:15 INR, PTT INR 3.10 (0.82-1.09) H 04/07/17 08:15 Fibrinogen 296.0 mg/dL (238-498) D 03/30/17 06:10 Problem List - Problems (1) Critical lower limb ischemia Code(s): I99.8 - OTHER DISORDER OF CIRCULATORY SYSTEM (2) HLD (hyperlipidemia) Code(s): E78.5 - HYPERLIPIDEMIA, UNSPECIFIED Qualifiers: Hyperlipidemia type: pure hypercholesterolemia Qualified Code(s): E78.00 - Pure hypercholesterolemia, unspecified (3) HTN (hypertension) Code(s): I10 - ESSENTIAL (PRIMARY) HYPERTENSION Qualifiers: Hypertension type: essential hypertension Qualified Code(s): I10 - Essential (primary) hypertension (4) ESRD (end stage renal disease) Code(s): N18.6 - END STAGE RENAL DISEASE (5) Anemia Code(s): D64.9 - ANEMIA, UNSPECIFIED (6) Atrial fibrillation Code(s): I48.91 - UNSPECIFIED ATRIAL FIBRILLATION Qualifiers: Atrial fibrillation type: persistent Qualified Code(s): I48.1 - Persistent atrial fibrillation (7) Amputated toe of left foot Code(s): Z89.422 - ACQUIRED ABSENCE OF OTHER LEFT TOE(S) (8) S/P AKA (above knee amputation) Code(s): Z89.619 - ACQUIRED ABSENCE OF UNSPECIFIED LEG ABOVE KNEE Qualifiers: Laterality: right Qualified Code(s): Z89.611 - Acquired absence of right leg above knee (9) Cardiomyopathy Code(s): I42.9 - CARDIOMYOPATHY, UNSPECIFIED Qualifiers: Cardiomyopathy type: unspecified Qualified Code(s): I42.9 - Cardiomyopathy , unspecified (10) Systolic dysfunction, left ventricle Code(s): I51.9 - HEART DISEASE, UNSPECIFIED Assessment/Plan 1. PAD post right AKA and left toe amputation, occluded left SFA post angioplasty/stent, post left BKA 2. CAD angina pectoris 3. Dilated cardiomyopathy with chronic class I-II NYHA classification LV systolic failure, compensated/ euvolemic 4. Persistent atrial fibrillation [id number] score of 4 5. Severe TR with pulmonary HTN 6. HTN 7. ESRD on HD 8. History of DVT 9. Anemia 10. Thrombocytopenia PLAN: 1. Continue Coreg 2. Continue Crestor 3. HD as per renal service 4. Continue Coumadin per INR 2-3 Further plans are to follow Elias Landrum MD
[2017-04-08 10:38] LABS: BASOPHIL 0.5 % (0-2.0); EOSINOPHIL 1.4 % (0-4.5); MCH 28.6 pg (25.7-33.7); MCHC 30.9 g/dl (32.0-35.9); MEAN CELL VOLUME 92.4 fl (80-96); MEAN PLT VOLUME 8.8 fl (7.5-11.1); NEUTROPHILS 85.9 % (42.8-82.8); PLATELET COUNT 85 K/MM3 (134-434); RDW 22.9 % (11.9-15.9); WHITE BLOOD COUNT 10.3 K/mm3 (4.0-10.0)
[2017-04-08 10:51] LABS: INR 3.09 (0.82-1.09); PROTHROMBIN TIME (PATIENT) 34.9 SEC (9.98-11.88)
[2017-04-08 10:54] LABS: ALBUMIN 1.8 g/dl (3.4-5.0); ANION GAP 12 (8-16); BILIRUBIN,TOTAL 0.7 mg/dL (0.2-1.0); CALCIUM 7.6 mg/dL (8.5-10.1); CO2 27 mmol/L (21-32); CREATININE 6.9 mg/dL (0.7-1.3); GLUCOSE,RANDOM 91 mg/dL (74-106); SGOT/AST 13 U/L (15-37); SGPT/ALT 8 U/L (12-78); TOT PROT 4.5 g/dl (6.4-8.2)
[2017-04-08 10:55] LABS: ALK PHOS 88 U/L (45-117)
--- NOTE | 2017-04-08 11:13 | PN ---
Progress Note (short form) - Note Progress Note: Patient seen and examined Somewhat lethargic Last Vital Signs Temp Pulse Resp BP Pulse Ox 99 F 83 20 102/58 95 04/08/17 06:00 04/08/17 06:00 04/08/17 06:00 04/08/17 06:00 04/07/17 21:00 Lungs - diminished breathe sounds, poor inspiratory effort Cor-RSR Abd- soft Ext- s/p BKA with cast CBC, BMP 04/08/17 10:10 04/08/17 10:10 Current Medications Generic Name Dose Route Start Last Admin Trade Name Freq PRN Reason Stop Dose Admin Acetaminophen 1,000 mg 04/01/17 17:31 04/03/17 05:39 Ofirmev Injection - IVPB 1,000 mg Q6H PRN Administration FEVER OR PAIN Amino Acids 30 ml 04/02/17 11:00 04/07/17 18:02 Prosource No Carb Liquid Pkt PO 30 ml BID@0800,1730 [facility] Administration Budesonide/Formoterol Fumarate 2 puff 04/01/17 22:00 04/07/17 22:15 Symbicort 80/4.5mcg - IH 2 puff BID [facility] Administration Carvedilol 3.125 mg 04/01/17 22:00 04/07/17 22:03 Coreg - PO 3.125 mg BID [facility] Administration Diphenhydramine HCl 25 mg 04/01/17 17:31 Benadryl - PO Q6H PRN FOR ITCHING Docusate Sodium 300 mg 04/01/17 22:00 04/07/17 22:04 Colace - PO 300 mg HS [facility] Administration Gabapentin 100 mg 04/06/17 10:00 04/07/17 22:03 Neurontin - PO 100 mg BID [facility] Administration Haloperidol 2 mg 04/04/17 16:53 04/06/17 11:50 Haldol Injection (Fast Acting) - IM 2 mg Q4H PRN Administration AGITATION Lorazepam 0.5 mg 04/06/17 13:37 Ativan Injection - IVPUSH BID PRN ANXIETY Midodrine 10 mg 04/01/17 18:00 04/07/17 18:01 Proamatine - PO 10 mg TID-MID [facility] Administration Ondansetron HCl 4 mg 04/01/17 17:31 Zofran Injection IVPUSH Q6H PRN NAUSEA AND/OR VOMITING Oxycodone HCl 5 mg 04/05/17 11:09 04/07/17 11:51 Roxicodone - PO 5 mg Q4H PRN Administration PAIN Quetiapine Fumarate 25 mg 04/02/17 10:50 04/07/17 22:03 Seroquel - PO 25 mg BID [facility] Administration Ranitidine HCl 150 mg 04/02/17 10:00 04/07/17 11:24 Zantac Oral Solution - PO 150 mg DAILY [facility] Administration Rosuvastatin Calcium 5 mg 04/01/17 22:00 04/07/17 22:04 Crestor - PO 5 mg HS [facility] Administration Silver Sulfadiazine 1 applic 04/06/17 13:45 04/07/17 22:20 Silvadene - TP 1 applic BID [facility] Administration Sucralfate 0.5 gm 04/01/17 22:00 04/07/17 22:14 Carafate Oral Suspension - PO 0.5 gm BID [facility] Administration Impression: Gangrene- s/p BKA PAD Unspecified anemia ESRD/HD Completed course of antibiotics For transfer back to [place] Consider IVANIA with procrit or epogen per renal protocol.
[2017-04-08] MEDS: CARVEDILOL 3.125 MG TABLET (FP) PO SCH ×2 (11:28→21:48)
[2017-04-08] MEDS: QUEtiapine FUMARATE 25 MG TABLET (FP) PO SCH ×2 (12:02→21:47)
[2017-04-08] MEDS: MIDODRINE HCL 5 MG TABLET PO SCH ×3 (12:02→18:06)
[2017-04-08] MEDS: AMINO ACIDS/PROTEIN HYDROLYS 30 ML LIQUID.PKT PO SCH ×2 (12:02→17:26)
[2017-04-08] MEDS: GABAPENTIN 100 MG CAPSULE (FP) PO SCH ×2 (12:02→21:47)
[2017-04-08] MEDS: RANITIDINE HCL 150 MG/10 ML UNIT-DOSE PO SCH (12:02)
[2017-04-08] MEDS: SUCRALFATE 1 GM/10 ML UNIT DOSE CUPS PO SCH ×2 (12:03→21:48)
[2017-04-08] MEDS: BUDESONIDE/FORMETEROL FUMARATE 80/4.5 mcg INHALER IH SCH ×2 (12:03→21:57)
[2017-04-08] MEDS: SILVER SULFADIAZINE 1% TOP CREAM 400 GM JAR TP SCH ×2 (12:04→21:53)
--- NOTE | 2017-04-08 13:42 | PN ---
Progress Note (short form) - Note Progress Note: Renal Follow up for ESRD on HD Pt seen and examined at the bedside awake and alert no distress has some back discomfort very calm today Vital Signs Temperature 100.5 F H 04/08/17 13:04 Pulse Rate 81 04/08/17 11:17 Respiratory Rate 18 04/08/17 10:00 Blood Pressure 98/60 04/08/17 10:00 O2 Sat by Pulse Oximetry (%) 100 04/08/17 11:17 Intake & Output 04/05/17 04/06/17 04/07/17 04/08/17 23:59 23:59 23:59 23:59 Intake Total 20 720 100 Output Total 350 Balance 20 720 -250 Weight 56.841 kg 57.635 kg 56.359 kg 56.291 kg calm RRR CTA (anterior) Left leg in brace s/p amputation CBC, BMP 04/08/17 10:10 04/08/17 10:10 Current Medications Acetaminophen (Tylenol -) 650 mg PO Q6H PRN PRN Reason: FEVER OR PAIN Amino Acids (Prosource No Carb Liquid Pkt) 30 ml PO BID@0800,1730 [facility] Last Admin: 04/08/17 12:02 Dose: 30 ml Budesonide/Formoterol Fumarate (Symbicort 80/4.5mcg -) 2 puff IH BID [facility] Last Admin: 04/08/17 12:03 Dose: 2 puff Carvedilol (Coreg -) 3.125 mg PO BID [facility] Last Admin: 04/08/17 11:28 Dose: Not Given Diphenhydramine HCl (Benadryl -) 25 mg PO Q6H PRN PRN Reason: FOR ITCHING Docusate Sodium (Colace -) 300 mg PO HS [facility] Last Admin: 04/07/17 22:04 Dose: 300 mg Gabapentin (Neurontin -) 100 mg PO BID [facility] Last Admin: 04/08/17 12:02 Dose: 100 mg Haloperidol (Haldol Injection (Fast Acting) -) 2 mg IM Q4H PRN PRN Reason: AGITATION Last Admin: 04/06/17 11:50 Dose: 2 mg Lorazepam (Ativan Injection -) 0.5 mg IVPUSH BID PRN PRN Reason: ANXIETY Midodrine (Proamatine -) 10 mg PO TID-MID [facility] Last Admin: 04/08/17 12:02 Dose: 10 mg Ondansetron HCl (Zofran Injection) 4 mg IVPUSH Q6H PRN PRN Reason: NAUSEA AND/OR VOMITING Oxycodone HCl (Roxicodone -) 5 mg PO Q4H PRN PRN Reason: PAIN Last Admin: 04/07/17 11:51 Dose: 5 mg Quetiapine Fumarate (Seroquel -) 25 mg PO BID [facility] Last Admin: 04/08/17 12:02 Dose: 25 mg Ranitidine HCl (Zantac Oral Solution -) 150 mg PO DAILY [facility] Last Admin: 04/08/17 12:02 Dose: 150 mg Rosuvastatin Calcium (Crestor -) 5 mg PO HS [facility] Last Admin: 04/07/17 22:04 Dose: 5 mg Silver Sulfadiazine (Silvadene -) 1 applic TP BID [facility] Last Admin: 04/08/17 12:04 Dose: 1 applic Sucralfate (Carafate Oral Suspension -) 0.5 gm PO BID [facility] Last Admin: 04/08/17 12:03 Dose: 0.5 gm 77 year old gentleman with PMhx of ESRD on HD (TTS), Hypertension, DVT, PVD s/p right AKA and left toe amputation who presented to the ED with complaints of pain in his left foot and admitted fro soft tissue infection of the foot with concern for worsening ischemic disease. #ESRD on HD no aucte indication for dialysis today next treatment planned for tomorrow dose all meds for intermittent HD #Hypokalemia 3k bath with HD #Wound/Ischemia of left LE s/p amputation Wound care Vascular follow up #Acute on Chronic Anemia likely due to infection but need to r/o blood loss continue IVANIA with HD #Hypernatremia oral water intake as tolerated #Hypocalcemia Corrected Ca is within normal limits Thank you Raghu Boogie DO Problem List - Problems (1) Critical lower limb ischemia Code(s): I99.8 - OTHER DISORDER OF CIRCULATORY SYSTEM (2) Open wnd foot-complicated Code(s): S91.309A - UNSPECIFIED OPEN WOUND, UNSPECIFIED FOOT, INITIAL ENCOUNTER (3) HTN (hypertension) Code(s): I10 - ESSENTIAL (PRIMARY) HYPERTENSION Qualifiers: Hypertension type: essential hypertension Qualified Code(s): I10 - Essential (primary) hypertension (4) ESRD (end stage renal disease) Code(s): N18.6 - END STAGE RENAL DISEASE (5) Anemia Code(s): D64.9 - ANEMIA, UNSPECIFIED
--- NOTE | 2017-04-08 13:47 | PN ---
Physical Exam: SUBJECTIVE: Patient seen and examined at the bedside. Laying in bed, calm, in no distress OBJECTIVE: Fever 100.5F, pus noted to be draining from surgical wound (left BKA) Wound culture ordered as per ID. Blood cultures ordered Spoke with ID (Giovanna) and made him aware of same, ID to evaluate patient. Vital Signs Period Temp Pulse Resp BP Sys/Coleman Pulse Ox Last 24 Hr 97.5 F-100.5 F 78-85 18-20 94-114/53-67 95-100 GENERAL: Asleep during exam, naun vest and mittens discontinued HEAD: Normal with no signs of trauma. NECK: Normal range of motion, supple without lymphadenopathy, JVD, or masses. LUNGS: Breath sounds diminished bilaterall, no wheezing, +fine crackles on right mid lobe, oxygen stable on room air HEART: irregular heart rate, hx of afib ABDOMEN: Soft, nontender, not distended, normoactive bowel sounds, no guarding, no rebound, no masses. No hepatomegaly or splenomegaly. 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, on immobilizer, + pus wet wound with drainage, minimal odor, wound cultured SKIN: Sacral stage II, present on admission, not viewed, changed by primary RN Laboratory Results - last 24 hr 04/08/17 04/08/17 04/08/17 10:10 10:10 10:10 WBC 10.3 H RBC 3.94 L Hgb 11.2 L Hct 36.4 MCV 92.4 MCH 28.6 MCHC 30.9 L RDW 22.9 H Plt Count 85 L D MPV 8.8 D Neutrophils % 85.9 H Lymphocytes % 5.5 L Monocytes % 6.7 Eosinophils % 1.4 D Basophils % 0.5 PT with INR 34.90 H INR 3.09 H Sodium 145 Potassium 3.8 Chloride 106 Carbon Dioxide 27 Anion Gap 12 BUN 53 H D Creatinine 6.9 H D Creat Clearance w eGFR 7.82 Random Glucose 91 Calcium 7.6 L Total Bilirubin 0.7 D AST 13 L D ALT 8 L Alkaline Phosphatase 88 Total Protein 4.5 L Albumin 1.8 L Active Medications Generic Name Dose Route Start Last Admin Trade Name Freq PRN Reason Stop Dose Admin Acetaminophen 650 mg 04/08/17 12:41 Tylenol - PO Q6H PRN FEVER OR PAIN Amino Acids 30 ml 04/02/17 11:00 04/08/17 12:02 Prosource No Carb Liquid Pkt PO 30 ml BID@0800,1730 OTIS Administration Budesonide/Formoterol Fumarate 2 puff 04/01/17 22:00 04/08/17 12:03 Symbicort 80/4.5mcg - IH 2 puff BID OTIS Administration Carvedilol 3.125 mg 04/01/17 22:00 04/08/17 11:28 Coreg - PO Not Given BID OTIS Diphenhydramine HCl 25 mg 04/01/17 17:31 Benadryl - PO Q6H PRN FOR ITCHING Docusate Sodium 300 mg 04/01/17 22:00 04/07/17 22:04 Colace - PO 300 mg HS OTIS Administration Gabapentin 100 mg 04/06/17 10:00 04/08/17 12:02 Neurontin - PO 100 mg BID OTIS Administration Haloperidol 2 mg 04/04/17 16:53 04/06/17 11:50 Haldol Injection (Fast Acting) - IM 2 mg Q4H PRN Administration AGITATION Lorazepam 0.5 mg 04/06/17 13:37 Ativan Injection - IVPUSH BID PRN ANXIETY Midodrine 10 mg 04/01/17 18:00 04/08/17 12:02 Proamatine - PO 10 mg TID-MID OTIS Administration Ondansetron HCl 4 mg 04/01/17 17:31 Zofran Injection IVPUSH Q6H PRN NAUSEA AND/OR VOMITING Oxycodone HCl 5 mg 04/05/17 11:09 04/07/17 11:51 Roxicodone - PO 5 mg Q4H PRN Administration PAIN Quetiapine Fumarate 25 mg 04/02/17 10:50 04/08/17 12:02 Seroquel - PO 25 mg BID OTIS Administration Ranitidine HCl 150 mg 04/02/17 10:00 04/08/17 12:02 Zantac Oral Solution - PO 150 mg DAILY OT[facility] Administration Rosuvastatin Calcium 5 mg 04/01/17 22:00 04/07/17 22:04 Crestor - PO 5 mg HS OTIS Administration Silver Sulfadiazine 1 applic 04/06/17 13:45 04/08/17 12:04 Silvadene - TP 1 applic BID OTIS Administration Sucralfate 0.5 gm 04/01/17 22:00 04/08/17 12:03 Carafate Oral Suspension - PO 0.5 gm BID OT[facility] Administration ASSESSMENT/PLAN: Patient is a 77 year old male with a significant past medical history of ESRD HD (T,Th,Sa), atrial fib, hypertension, DVT, right AKA, s/p left 2nd digit amputation lower extremity. He presented to the ED on 03/14/2017 for critical ischemia of left lower extremity. Patient is Urdu speaking only and family reports having increased swelling to his left lower extremity. Pt comes with right AKA and a left middle toe amputation that was performed 3 weeks ago in [facility], where pt has been living for the past several years. Patient has medical records from [facility] in his file. Patient had a left BKA on 03/31/2017 for septic left foot/leg. Wound noted today to be drainage, with odor, mild fever. Vascular/ID: Sepsis secondary to ischemic Left foot, BKA on 04/01, resolved Vanco and Zosyn stopped on 04/04/2017 Now with drainage of pus from left BKA wound, eliezer intact Wound appears wet, wound culture ordered WBC stable ID to follow up, spoke to Dr. Heredia who will see patient today Also has bruising on left knee Monitor vitals, fevers, will send blood cultures Vascular re-consulted Hematology: Coagulopathy (prolonged PTT/PT) Thrombocytopenia, s/p platelet infusion on 04/01 Neuro: Acute Metabolic Encephalopathy likely secondary to septic left foot, improving S/P left BKA, see vascular note above. Renal: ESRD, HD (on TThS) via right upper arm fistula Next dialysis tomorrow Cardiology: Supra therapeutic INR for Atrial Fibrillation Coumadin on hold for now, INR in a.m. Hypertension, chronic but now with hypotension, parameters added to BP meds Cardiology following CAD Coreg 3.125mg BID, Crestor 5mg HS Psyche: Agitation, delirium Haldol, Seroquel 25mg BID Hematology: Anemia, likely chronic 2/2 to ESRD Monitor hmg/hct Heme following F.E.N. Fluids: 1.2 liter fluid restriction, tolerating PO Electrolytes: monitor Nutrition: renal diet Prophylaxis: GI: deferred DVT: supratherapeutic INR, hold coumadin again today, fall risk Disposition: Requires inpatient hospitalization. Full code. Visit type - Emergency Visit Emergency Visit: Yes ED Registration Date: 03/14/17 Care time: The patient presented to the Emergency Department on the above date and was hospitalized for further evaluation of their emergent condition. - New Patient This patient is new to me today: No - Critical Care Critical Care patient: No - Discharge Referral Referred to [facility] Med P.C.: No
[2017-04-08] MEDS: ACETAMINOPHEN 325 MG TABLET (FP) PO PRN (14:48)
[2017-04-08] MEDS: oxyCODONE HCL 5 MG TABLET PO PRN (14:53)
--- NOTE | 2017-04-08 16:24 | CONSULT ---
Consult - text type - Consultation Consultation Note: patients wound was opened pus was coming out of the wound cx were send will restart the patient on iv abx await for cx to be back
[2017-04-08] MEDS ORDERED: PT OWN MED DRAWER 7, Y5N ONE ×2 (17:23→20:34)
[2017-04-08] MEDS: PIPERACILLIN/TAZOB 2.25 GM 2.25 GM in DEXTROSE 5%-WATER - 50 ML IVPB SCH ×2 (18:06→19:28)
[2017-04-08] MEDS: ROSUVASTATIN CA 5 MG TABLET (FP) PO SCH (21:47)
[2017-04-08] MEDS: DOCUSATE SODIUM 100 MG CAPSULE (FP) PO SCH (21:49)
[2017-04-09] MEDS: PIPERACILLIN/TAZOB 2.25 GM 2.25 GM in DEXTROSE 5%-WATER - 50 ML IVPB SCH ×3 (01:11→17:29)
[2017-04-09] MEDS: AMINO ACIDS/PROTEIN HYDROLYS 30 ML LIQUID.PKT PO SCH ×2 (07:57→17:29)
[2017-04-09 09:11] LABS: BASOPHIL 1.4 % (0-2.0); EOSINOPHIL 2.2 % (0-4.5); MCH 28.8 pg (25.7-33.7); MCHC 31.5 g/dl (32.0-35.9); MEAN CELL VOLUME 91.4 fl (80-96); MEAN PLT VOLUME 7.9 fl (7.5-11.1); NEUTROPHILS 80.7 % (42.8-82.8); PLATELET COUNT 85 K/MM3 (134-434); RDW 21.8 % (11.9-15.9); WHITE BLOOD COUNT 8.2 K/mm3 (4.0-10.0)
[2017-04-09 09:41] LABS: ALBUMIN 1.7 g/dl (3.4-5.0); ALK PHOS 92 U/L (45-117); ANION GAP 10 (8-16); BILIRUBIN,TOTAL 0.6 mg/dL (0.2-1.0); CALCIUM 7.5 mg/dL (8.5-10.1); CO2 29 mmol/L (21-32); GLUCOSE,RANDOM 94 mg/dL (74-106); SGOT/AST 14 U/L (15-37); SGPT/ALT 10 U/L (12-78); TOT PROT 4.4 g/dl (6.4-8.2)
[2017-04-09 10:06] LABS: INR 2.62 (0.82-1.09); PROTHROMBIN TIME (PATIENT) 29.6 SEC (9.98-11.88)
[2017-04-09 10:22] LABS: CREATININE 7.6 mg/dL (0.7-1.3)
--- NOTE | 2017-04-09 10:42 | PN ---
Progress Note (short form) - Note Progress Note: Resting in NAD. No acute distress overnight. Breathing non-labored. Intake & Output 04/06/17 04/07/17 04/08/17 04/09/17 23:59 23:59 23:59 23:59 Intake Total 20 720 100 50 Output Total 350 Balance 20 720 -250 50 Weight 127 lb 1 oz 124 lb 4 oz 124 lb 1.6 oz 122 lb 9 oz Last Vital Signs Temp Pulse Resp BP Pulse Ox 98 F 80 18 91/58 95 04/09/17 08:00 04/09/17 10:15 04/09/17 10:15 04/09/17 10:15 04/08/17 21:00 Active Medications Acetaminophen (Tylenol -) 650 mg PO Q6H PRN PRN Reason: FEVER OR PAIN Last Admin: 04/08/17 14:48 Dose: 650 mg Amino Acids (Prosource No Carb Liquid Pkt) 30 ml PO BID@0800,1730 [facility] Last Admin: 04/09/17 07:57 Dose: Not Given Budesonide/Formoterol Fumarate (Symbicort 80/4.5mcg -) 2 puff IH BID [facility] Last Admin: 04/08/17 21:57 Dose: Not Given Carvedilol (Coreg -) 3.125 mg PO BID [facility] Last Admin: 04/08/17 21:48 Dose: 3.125 mg Diphenhydramine HCl (Benadryl -) 25 mg PO Q6H PRN PRN Reason: FOR ITCHING Docusate Sodium (Colace -) 300 mg PO HS [facility] Last Admin: 04/08/17 21:49 Dose: Not Given Gabapentin (Neurontin -) 100 mg PO BID [facility] Last Admin: 04/08/17 21:47 Dose: 100 mg Haloperidol (Haldol Injection (Fast Acting) -) 2 mg IM Q4H PRN PRN Reason: AGITATION Last Admin: 04/06/17 11:50 Dose: 2 mg Piperacillin Sod/Tazobactam (Sod 2.25 gm/ Dextrose) 50 mls @ 100 mls/hr IVPB Q8H-IV OTIS PRN Reason: Protocol Last Admin: 04/09/17 01:11 Dose: 100 mls/hr Lorazepam (Ativan Injection -) 0.5 mg IVPUSH BID PRN PRN Reason: ANXIETY Midodrine (Proamatine -) 10 mg PO TID-MID [facility] Last Admin: 04/08/17 18:06 Dose: 10 mg Ondansetron HCl (Zofran Injection) 4 mg IVPUSH Q6H PRN PRN Reason: NAUSEA AND/OR VOMITING Oxycodone HCl (Roxicodone -) 5 mg PO Q4H PRN PRN Reason: PAIN Last Admin: 04/08/17 14:53 Dose: 5 mg Quetiapine Fumarate (Seroquel -) 25 mg PO BID [facility] Last Admin: 04/08/17 21:47 Dose: 25 mg Ranitidine HCl (Zantac Oral Solution -) 150 mg PO DAILY [facility] Last Admin: 04/08/17 12:02 Dose: 150 mg Rosuvastatin Calcium (Crestor -) 5 mg PO HS [facility] Last Admin: 04/08/17 21:47 Dose: 5 mg Silver Sulfadiazine (Silvadene -) 1 applic TP BID [facility] Last Admin: 04/08/17 21:53 Dose: 1 applic Sucralfate (Carafate Oral Suspension -) 0.5 gm PO BID [facility] Last Admin: 04/08/17 21:48 Dose: 0.5 gm Constitutional: Yes: Confused, NAD Eyes: Yes: Conjunctiva Clear, EOM Intact HENT: Yes: Atraumatic, Normocephalic Neck: Yes: Supple, Trachea Midline Cardiovascular: Yes: Regular Rate and Rhythm Respiratory: Yes: few basilar Rhonchi ...Clubbing: No Gastrointestinal: Yes: Normal Bowel Sounds, Soft. No: Tenderness Extremities: Yes: Bilateral LE amputation Edema: No Neurological: Yes: Confused Labs: Laboratory Results - last 24 hr 04/08/17 04/08/17 04/08/17 10:10 10:10 10:10 WBC 10.3 H RBC 3.94 L Hgb 11.2 L Hct 36.4 MCV 92.4 MCH 28.6 MCHC 30.9 L RDW 22.9 H Plt Count 85 L D MPV 8.8 D Neutrophils % 85.9 H Lymphocytes % 5.5 L Monocytes % 6.7 Eosinophils % 1.4 D Basophils % 0.5 PT with INR 34.90 H INR 3.09 H Sodium 145 Potassium 3.8 Chloride 106 Carbon Dioxide 27 Anion Gap 12 BUN 53 H D Creatinine 6.9 H D Creat Clearance w eGFR 7.82 Random Glucose 91 Calcium 7.6 L Total Bilirubin 0.7 D AST 13 L D ALT 8 L Alkaline Phosphatase 88 Total Protein 4.5 L Albumin 1.8 L 04/09/17 04/09/17 04/09/17 08:15 08:15 09:00 WBC 8.2 RBC 3.69 L Hgb 10.6 L Hct 33.7 L MCV 91.4 MCH 28.8 MCHC 31.5 L RDW 21.8 H Plt Count 85 L MPV 7.9 D Neutrophils % 80.7 Lymphocytes % 6.8 L D Monocytes % 8.9 Eosinophils % 2.2 Basophils % 1.4 PT with INR 29.60 H INR 2.62 H Sodium 143 Potassium 4.1 Chloride 104 Carbon Dioxide 29 Anion Gap 10 BUN 65 H D Creatinine 7.6 H* Creat Clearance w eGFR 6.99 Random Glucose 94 Calcium 7.5 L Total Bilirubin 0.6 AST 14 L ALT 10 L D Alkaline Phosphatase 92 Total Protein 4.4 L Albumin 1.7 L Problem List - Problems (1) Open wnd foot-complicated Code(s): S91.309A - UNSPECIFIED OPEN WOUND, UNSPECIFIED FOOT, INITIAL ENCOUNTER (2) Peripheral arterial disease Code(s): I73.9 - PERIPHERAL VASCULAR DISEASE, UNSPECIFIED (3) Anemia Code(s): D64.9 - ANEMIA, UNSPECIFIED (4) Atrial fibrillation Code(s): I48.91 - UNSPECIFIED ATRIAL FIBRILLATION Qualifiers: Atrial fibrillation type: persistent Qualified Code(s): I48.1 - Persistent atrial fibrillation; I48.1 - Persistent atrial fibrillation; I48.1 - Persistent atrial fibrillation; I48.1 - Persistent atrial fibrillation (5) ESRD (end stage renal disease) Code(s): N18.6 - END STAGE RENAL DISEASE (6) HLD (hyperlipidemia) Code(s): E78.5 - HYPERLIPIDEMIA, UNSPECIFIED Qualifiers: Hyperlipidemia type: pure hypercholesterolemia Qualified Code(s): E78.00 - Pure hypercholesterolemia, unspecified; E78.00 - Pure hypercholesterolemia, unspecified; E78.00 - Pure hypercholesterolemia, unspecified; E78.0 - Pure hypercholesterolemia (7) HTN (hypertension) Code(s): I10 - ESSENTIAL (PRIMARY) HYPERTENSION Qualifiers: Hypertension type: essential hypertension Qualified Code(s): I10 - Essential (primary) hypertension; I10 - Essential (primary) hypertension; I10 - Essential (primary) hypertension (8) S/P AKA (above knee amputation) Code(s): Z89.619 - ACQUIRED ABSENCE OF UNSPECIFIED LEG ABOVE KNEE Qualifiers: Laterality: right Qualified Code(s): Z89.611 - Acquired absence of right leg above knee; Z89.611 - Acquired absence of right leg above knee; Z89.611 - Acquired absence of right leg above knee (9) Systolic dysfunction, left ventricle Code(s): I51.9 - HEART DISEASE, UNSPECIFIED Assessment/Plan Foot Wound Infection Peripheral Artery Disease ESRD on HD Atrial Fibrillation Severe LV Systolic Dysfunction Pulmonary HTN Supratherapeutic INR Thrombocytopenia AAA Liver Cirrhosis 2 cm right mid lung zone irregular density along the fissure: (?) inflammatory versus mass s/p R AKA Pain control Local wound care per surgery HD per Renal Normal transfusion thresholds O2 as needed AC Will need close short term outpatient CT follow up of lung nodule. Dr Braun
--- NOTE | 2017-04-09 11:09 | PN ---
Progress Note (short form) - Note Progress Note: Subjective: The patient was seen and examined at the bedside he has no complaints at this time. Current Medications Generic Name Dose Route Start Last Admin Trade Name Freq PRN Reason Stop Dose Admin Acetaminophen 650 mg 04/08/17 12:41 04/08/17 14:48 Tylenol - PO 650 mg Q6H PRN Administration FEVER OR PAIN Amino Acids 30 ml 04/02/17 11:00 04/09/17 07:57 Prosource No Carb Liquid Pkt PO Not Given BID@0800,1730 OT[facility] Budesonide/Formoterol Fumarate 2 puff 04/01/17 22:00 04/08/17 21:57 Symbicort 80/4.5mcg - IH Not Given BID OTIS Carvedilol 3.125 mg 04/01/17 22:00 04/08/17 21:48 Coreg - PO 3.125 mg BID OTIS Administration Diphenhydramine HCl 25 mg 04/01/17 17:31 Benadryl - PO Q6H PRN FOR ITCHING Docusate Sodium 300 mg 04/01/17 22:00 04/08/17 21:49 Colace - PO Not Given HS OTIS Gabapentin 100 mg 04/06/17 10:00 04/08/17 21:47 Neurontin - PO 100 mg BID OTIS Administration Haloperidol 2 mg 04/04/17 16:53 04/06/17 11:50 Haldol Injection (Fast Acting) - IM 2 mg Q4H PRN Administration AGITATION Piperacillin Sod/Tazobactam 50 mls @ 100 mls/hr 04/08/17 16:30 04/09/17 01:11 Sod 2.25 gm/ Dextrose IVPB 100 mls/hr Q8H-IV OTIS Administration Protocol Lorazepam 0.5 mg 04/06/17 13:37 Ativan Injection - IVPUSH BID PRN ANXIETY Midodrine 10 mg 04/01/17 18:00 04/08/17 18:06 Proamatine - PO 10 mg TID-MID OTIS Administration Ondansetron HCl 4 mg 04/01/17 17:31 Zofran Injection IVPUSH Q6H PRN NAUSEA AND/OR VOMITING Oxycodone HCl 5 mg 04/05/17 11:09 04/08/17 14:53 Roxicodone - PO 5 mg Q4H PRN Administration PAIN Quetiapine Fumarate 25 mg 04/02/17 10:50 04/08/17 21:47 Seroquel - PO 25 mg BID OTIS Administration Ranitidine HCl 150 mg 04/02/17 10:00 04/08/17 12:02 Zantac Oral Solution - PO 150 mg DAILY [facility] Administration Rosuvastatin Calcium 5 mg 04/01/17 22:00 04/08/17 21:47 Crestor - PO 5 mg HS OTIS Administration Silver Sulfadiazine 1 applic 04/06/17 13:45 04/08/17 21:53 Silvadene - TP 1 applic BID OTIS Administration Sucralfate 0.5 gm 04/01/17 22:00 04/08/17 21:48 Carafate Oral Suspension - PO 0.5 gm BID OTIS Administration Objective: Vital Signs Period Temp Pulse Resp BP Sys/Coleman Pulse Ox Last 24 Hr 97.2 F-100.5 F 71-99 18-20 83-105/54-67 95-100 Physical Exam: General: NAD Lungs: Diminished breath sounds anteriorly Heart: Irregular rate, S1S2 Abd: Soft, non-tender, non-distended. Normoactive bowel sounds Ext: Right AKA. left BKA with foul smelling drainage CBCD WBC 8.2 K/mm3 (4.0-10.0) 04/09/17 08:15 RBC 3.69 M/mm3 (4.00-5.60) L 04/09/17 08:15 Hgb 10.6 GM/dL (11.7-16.9) L 04/09/17 08:15 Hct 33.7 % (35.4-49) L 04/09/17 08:15 MCV 91.4 fl (80-96) 04/09/17 08:15 MCHC 31.5 g/dl (32.0-35.9) L 04/09/17 08:15 RDW 21.8 % (11.9-15.9) H 04/09/17 08:15 Plt Count 85 K/MM3 (134-434) L 04/09/17 08:15 MPV 7.9 fl (7.5-11.1) D 04/09/17 08:15 CMP Sodium 143 mmol/L (136-145) 04/09/17 08:15 Potassium 4.1 mmol/L (3.5-5.1) 04/09/17 08:15 Chloride 104 mmol/L (98-107) 04/09/17 08:15 Carbon Dioxide 29 mmol/L (21-32) 04/09/17 08:15 Anion Gap 10 (8-16) 04/09/17 08:15 BUN 65 mg/dL (7-18) H D 04/09/17 08:15 Creatinine 7.6 mg/dL (0.7-1.3) H* 04/09/17 08:15 Creat Clearance w eGFR 6.99 (>60) 04/09/17 08:15 Random Glucose 94 mg/dL (74-106) 04/09/17 08:15 Calcium 7.5 mg/dL (8.5-10.1) L 04/09/17 08:15 Total Bilirubin 0.6 mg/dL (0.2-1.0) 04/09/17 08:15 AST 14 U/L (15-37) L 04/09/17 08:15 ALT 10 U/L (12-78) L D 04/09/17 08:15 Alkaline Phosphatase 92 U/L (45-117) 04/09/17 08:15 Total Protein 4.4 g/dl (6.4-8.2) L 04/09/17 08:15 Albumin 1.7 g/dl (3.4-5.0) L 04/09/17 08:15 CARDIAC ENZYMES Creatine Kinase 17 IU/L (39-308) L 03/14/17 01:15 Troponin I 0.03 ng/ml (0.00-0.05) 03/14/17 01:15 Microbiology 04/08/17 12:30 Drainage (Swab) Wound Culture - Preliminary Group D Strep Or Entero Coccus 03/21/17 15:30 Blood - Peripheral Venous Blood Culture - Final NO GROWTH AFTER 5 DAYS INCUBATION 03/21/17 15:30 Blood - Peripheral Venous Blood Culture - Final NO GROWTH AFTER 5 DAYS INCUBATION 03/14/17 01:20 Blood - Peripheral Venous Blood Culture - Final NO GROWTH AFTER 5 DAYS INCUBATION 03/14/17 01:15 Blood - Peripheral Venous Blood Culture - Final NO GROWTH AFTER 5 DAYS INCUBATION 03/14/17 13:30 Foot - Left Gram Stain - Final 03/14/17 13:30 Foot - Left Wound Culture - Final Serratia Marcescens Raoultella (K) Ornithinolytica Imagin03/14/2017: CT/Abdomen CTA AOR & RLE Runoff: Extensive severe diffuse aortoiliac , femoro-popliteal and intrapoplitea, occluded left SFA and mucus occlusion of flow in a severely diseased the renal artery demonstrates at lease 70-90% stenosis. Occluded left ENMANUEL and two vessel runoff provided by [employer]LE[employer] and PA however degree of disease and stenosis cannot be discerned due to calcification and hardening artifacts. enlarged prostate. Small right sided pleural effusion with severe right lung base atelectic changes vs pnemonic infiltrates. 03/14/2017: US/Duplex arterial legs, limited ultrasound: Extensive artheroscleoric disease with occlusion of the SFA. There is weak, monosphasic flow present within the popliteal and posterior tibial arteries. Assessment: This is a 77 year old male with PMHx of ESRD on HD (,,), HTN, DVT, right AKA 3 months ago, left 2nd digit amputation lower extremity, who presented to the ED for worsening left foot pain. 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 - New Patient This patient is new to me today: No - Critical Care Critical Care patient: No
--- NOTE | 2017-04-09 11:34 | PN ---
Progress Note, Physician Chief Complaint: Patient is a 77 year old male with a significant past medical history of ESRD HD , atrial fib, hypertension, DVT, right AKA, Recent Left BKA. Receiving HD. Tolerating well. No new complaints. - Current Medication List Current Medications: Active Medications Acetaminophen (Tylenol -) 650 mg PO Q6H PRN PRN Reason: FEVER OR PAIN Last Admin: 04/08/17 14:48 Dose: 650 mg Amino Acids (Prosource No Carb Liquid Pkt) 30 ml PO BID@0800,1730 [facility] Last Admin: 04/09/17 07:57 Dose: Not Given Budesonide/Formoterol Fumarate (Symbicort 80/4.5mcg -) 2 puff IH BID [facility] Last Admin: 04/08/17 21:57 Dose: Not Given Carvedilol (Coreg -) 3.125 mg PO BID [facility] Last Admin: 04/08/17 21:48 Dose: 3.125 mg Diphenhydramine HCl (Benadryl -) 25 mg PO Q6H PRN PRN Reason: FOR ITCHING Docusate Sodium (Colace -) 300 mg PO HS [facility] Last Admin: 04/08/17 21:49 Dose: Not Given Gabapentin (Neurontin -) 100 mg PO BID [facility] Last Admin: 04/08/17 21:47 Dose: 100 mg Haloperidol (Haldol Injection (Fast Acting) -) 2 mg IM Q4H PRN PRN Reason: AGITATION Last Admin: 04/06/17 11:50 Dose: 2 mg Piperacillin Sod/Tazobactam (Sod 2.25 gm/ Dextrose) 50 mls @ 100 mls/hr IVPB Q8H-IV [facility]IS PRN Reason: Protocol Last Admin: 04/09/17 01:11 Dose: 100 mls/hr Lorazepam (Ativan Injection -) 0.5 mg IVPUSH BID PRN PRN Reason: ANXIETY Midodrine (Proamatine -) 10 mg PO TID-MID [facility] Last Admin: 04/08/17 18:06 Dose: 10 mg Ondansetron HCl (Zofran Injection) 4 mg IVPUSH Q6H PRN PRN Reason: NAUSEA AND/OR VOMITING Oxycodone HCl (Roxicodone -) 5 mg PO Q4H PRN PRN Reason: PAIN Last Admin: 04/08/17 14:53 Dose: 5 mg Quetiapine Fumarate (Seroquel -) 25 mg PO BID [facility] Last Admin: 04/08/17 21:47 Dose: 25 mg Ranitidine HCl (Zantac Oral Solution -) 150 mg PO DAILY [facility] Last Admin: 04/08/17 12:02 Dose: 150 mg Rosuvastatin Calcium (Crestor -) 5 mg PO HS [facility] Last Admin: 04/08/17 21:47 Dose: 5 mg Silver Sulfadiazine (Silvadene -) 1 applic TP BID [facility] Last Admin: 04/08/17 21:53 Dose: 1 applic Sucralfate (Carafate Oral Suspension -) 0.5 gm PO BID [facility] Last Admin: 04/08/17 21:48 Dose: 0.5 gm Warfarin Sodium (Coumadin -) 5 mg PO DAILY@1800 [facility] - Objective Vital Signs: Vital Signs Temperature 98 F 04/09/17 08:00 Pulse Rate 80 04/09/17 10:15 Respiratory Rate 18 04/09/17 10:15 Blood Pressure 91/58 04/09/17 10:15 O2 Sat by Pulse Oximetry (%) 95 04/08/17 21:00 Constitutional: Yes: Calm HENT: Yes: Atraumatic Cardiovascular: Yes: Regular Rate and Rhythm, S1, S2 Respiratory: Yes: CTA Bilaterally Gastrointestinal: Yes: Normal Bowel Sounds, Soft Extremities: Yes: Amputation Neurological: Yes: Confusion Labs: CBC, BMP 04/09/17 08:15 04/09/17 08:15 INR, PTT INR 2.62 (0.82-1.09) H 04/09/17 09:00 Fibrinogen 296.0 mg/dL (238-498) D 03/30/17 06:10 Problem List - Problems (1) Open wnd foot-complicated Code(s): S91.309A - UNSPECIFIED OPEN WOUND, UNSPECIFIED FOOT, INITIAL ENCOUNTER (2) HTN (hypertension) Code(s): I10 - ESSENTIAL (PRIMARY) HYPERTENSION Qualifiers: Hypertension type: essential hypertension Qualified Code(s): I10 - Essential (primary) hypertension (3) ESRD (end stage renal disease) Code(s): N18.6 - END STAGE RENAL DISEASE (4) Anemia Code(s): D64.9 - ANEMIA, UNSPECIFIED (5) Atrial fibrillation Code(s): I48.91 - UNSPECIFIED ATRIAL FIBRILLATION Qualifiers: Atrial fibrillation type: persistent Qualified Code(s): I48.1 - Persistent atrial fibrillation (6) Amputated toe of left foot Code(s): Z89.422 - ACQUIRED ABSENCE OF OTHER LEFT TOE(S) (7) S/P AKA (above knee amputation) Code(s): Z89.619 - ACQUIRED ABSENCE OF UNSPECIFIED LEG ABOVE KNEE Qualifiers: Laterality: right Qualified Code(s): Z89.611 - Acquired absence of right leg above knee Assessment/Plan Patient is a 77 year old male with a significant past medical history of ESRD HD , Atrial fib, hypertension, DVT, right AKA, and recent left BKA. Hemodialysis well tolerated. Orders reviewed with the RN. Outpatient placement in progress. Emily San MD
[2017-04-09] MEDS: WARFARIN NA 5 MG TABLET (UD) PO SCH ×2 (12:13→17:29)
[2017-04-09] MEDS ORDERED: PT OWN MED DRAWER 7, Y5N ONE ×5 (12:17→23:18)
[2017-04-09] MEDS: CARVEDILOL 3.125 MG TABLET (FP) PO SCH ×2 (12:23→23:21)
[2017-04-09] MEDS: SUCRALFATE 1 GM/10 ML UNIT DOSE CUPS PO SCH ×2 (12:23→23:21)
[2017-04-09] MEDS: GABAPENTIN 100 MG CAPSULE (FP) PO SCH ×2 (12:23→23:22)
[2017-04-09] MEDS: SILVER SULFADIAZINE 1% TOP CREAM 400 GM JAR TP SCH ×2 (12:24→23:22)
[2017-04-09] MEDS: QUEtiapine FUMARATE 25 MG TABLET (FP) PO SCH ×2 (12:24→23:22)
[2017-04-09] MEDS: MIDODRINE HCL 5 MG TABLET PO SCH ×3 (12:24→17:29)
[2017-04-09] MEDS: BUDESONIDE/FORMETEROL FUMARATE 80/4.5 mcg INHALER IH SCH ×2 (12:25→23:22)
[2017-04-09] MEDS: RANITIDINE HCL 150 MG/10 ML UNIT-DOSE PO SCH (12:25)
--- NOTE | 2017-04-09 12:40 | PN ---
Progress Note, Physician Chief Complaint: S/P SFA angioplasty and stent Post left BKA No new complaints History of Present Illness: Patient was seen and examined. Awake. Chart was reviewed Denies chest pain or SOB Not in distress - Current Medication List Current Medications: Active Medications Acetaminophen (Tylenol -) 650 mg PO Q6H PRN PRN Reason: FEVER OR PAIN Last Admin: 04/08/17 14:48 Dose: 650 mg Amino Acids (Prosource No Carb Liquid Pkt) 30 ml PO BID@0800,1730 [facility] Last Admin: 04/09/17 07:57 Dose: Not Given Budesonide/Formoterol Fumarate (Symbicort 80/4.5mcg -) 2 puff IH BID [facility] Last Admin: 04/09/17 12:25 Dose: 2 puff Carvedilol (Coreg -) 3.125 mg PO BID [facility] Last Admin: 04/09/17 12:23 Dose: 3.125 mg Diphenhydramine HCl (Benadryl -) 25 mg PO Q6H PRN PRN Reason: FOR ITCHING Docusate Sodium (Colace -) 300 mg PO HS [facility] Last Admin: 04/08/17 21:49 Dose: Not Given Gabapentin (Neurontin -) 100 mg PO BID [facility] Last Admin: 04/09/17 12:23 Dose: 100 mg Haloperidol (Haldol Injection (Fast Acting) -) 2 mg IM Q4H PRN PRN Reason: AGITATION Last Admin: 04/06/17 11:50 Dose: 2 mg Piperacillin Sod/Tazobactam (Sod 2.25 gm/ Dextrose) 50 mls @ 100 mls/hr IVPB Q8H-IV OTIS PRN Reason: Protocol Last Admin: 04/09/17 12:25 Dose: 100 mls/hr Lorazepam (Ativan Injection -) 0.5 mg IVPUSH BID PRN PRN Reason: ANXIETY Midodrine (Proamatine -) 10 mg PO TID-MID [facility] Last Admin: 04/09/17 12:24 Dose: 10 mg Ondansetron HCl (Zofran Injection) 4 mg IVPUSH Q6H PRN PRN Reason: NAUSEA AND/OR VOMITING Oxycodone HCl (Roxicodone -) 5 mg PO Q4H PRN PRN Reason: PAIN Last Admin: 04/08/17 14:53 Dose: 5 mg Quetiapine Fumarate (Seroquel -) 25 mg PO BID [facility] Last Admin: 04/09/17 12:24 Dose: 25 mg Ranitidine HCl (Zantac Oral Solution -) 150 mg PO DAILY [facility] Last Admin: 04/09/17 12:25 Dose: 150 mg Rosuvastatin Calcium (Crestor -) 5 mg PO HS [facility] Last Admin: 04/08/17 21:47 Dose: 5 mg Silver Sulfadiazine (Silvadene -) 1 applic TP BID [facility] Last Admin: 04/09/17 12:24 Dose: 1 applic Sucralfate (Carafate Oral Suspension -) 0.5 gm PO BID [facility] Last Admin: 04/09/17 12:23 Dose: 0.5 gm Warfarin Sodium (Coumadin -) 5 mg PO DAILY@1800 [facility] Last Admin: 04/09/17 12:13 Dose: Not Given - Objective Vital Signs: Vital Signs Temperature 97.8 F 04/09/17 11:25 Pulse Rate 88 04/09/17 12:21 Respiratory Rate 20 04/09/17 12:21 Blood Pressure 120/57 04/09/17 12:21 O2 Sat by Pulse Oximetry (%) 95 04/08/17 21:00 Neck: Yes: Supple Cardiovascular: Yes: Pulse Irregular, S1, S2 Respiratory: Yes: Diminished Gastrointestinal: Yes: Normal Bowel Sounds, Soft. No: Tenderness Extremities: Yes: Amputation Edema: No Labs: CBC, BMP 04/09/17 08:15 04/09/17 08:15 INR, PTT INR 2.62 (0.82-1.09) H 04/09/17 09:00 Fibrinogen 296.0 mg/dL (238-498) D 03/30/17 06:10 Problem List - Problems (1) Critical lower limb ischemia Code(s): I99.8 - OTHER DISORDER OF CIRCULATORY SYSTEM (2) HLD (hyperlipidemia) Code(s): E78.5 - HYPERLIPIDEMIA, UNSPECIFIED Qualifiers: Hyperlipidemia type: pure hypercholesterolemia Qualified Code(s): E78.00 - Pure hypercholesterolemia, unspecified (3) HTN (hypertension) Code(s): I10 - ESSENTIAL (PRIMARY) HYPERTENSION Qualifiers: Hypertension type: essential hypertension Qualified Code(s): I10 - Essential (primary) hypertension (4) ESRD (end stage renal disease) Code(s): N18.6 - END STAGE RENAL DISEASE (5) Anemia Code(s): D64.9 - ANEMIA, UNSPECIFIED (6) Atrial fibrillation Code(s): I48.91 - UNSPECIFIED ATRIAL FIBRILLATION Qualifiers: Atrial fibrillation type: persistent Qualified Code(s): I48.1 - Persistent atrial fibrillation (7) Amputated toe of left foot Code(s): Z89.422 - ACQUIRED ABSENCE OF OTHER LEFT TOE(S) (8) S/P AKA (above knee amputation) Code(s): Z89.619 - ACQUIRED ABSENCE OF UNSPECIFIED LEG ABOVE KNEE Qualifiers: Laterality: right Qualified Code(s): Z89.611 - Acquired absence of right leg above knee (9) Cardiomyopathy Code(s): I42.9 - CARDIOMYOPATHY, UNSPECIFIED Qualifiers: Cardiomyopathy type: unspecified Qualified Code(s): I42.9 - Cardiomyopathy , unspecified (10) Systolic dysfunction, left ventricle Code(s): I51.9 - HEART DISEASE, UNSPECIFIED Assessment/Plan 1. PAD post right AKA and left toe amputation, occluded left SFA post angioplasty/stent, post left BKA 2. CAD angina pectoris 3. Dilated cardiomyopathy with chronic class I-II NYHA classification LV systolic failure, compensated/ euvolemic 4. Persistent atrial fibrillation [id number] score of 4 5. Severe TR with pulmonary HTN 6. HTN 7. ESRD on HD 8. History of DVT 9. Anemia 10. Thrombocytopenia PLAN: 1. Continue Coreg 2. Continue Crestor 3. HD as per renal service 4. Continue Coumadin per INR 2-3 5. Supportive care Further plans are to follow Elias Landrum MD
--- NOTE | 2017-04-09 17:03 | PN ---
Progress Note, Physician Chief Complaint: ID f/u note: History of Present Illness: Pt seen and examined. Notes, lab and imaging results reviewed. This is a 77 y.o. male with multiple comorbidities including PVD s/p Rt AKA, Atrial fibrillation, ESRD on HD, DVT, presenting with LLE gangrene, now s/p Lt BKA but now with purulent drainage from wound site. He is lethargic but in no acute distress. Had a temperature of 100.4F. Restarted on IV antibiotics. - Current Medication List Current Medications: Active Medications Acetaminophen (Tylenol -) 650 mg PO Q6H PRN PRN Reason: FEVER OR PAIN Last Admin: 04/08/17 14:48 Dose: 650 mg Amino Acids (Prosource No Carb Liquid Pkt) 30 ml PO BID@0800,1730 [facility] Last Admin: 04/09/17 07:57 Dose: Not Given Budesonide/Formoterol Fumarate (Symbicort 80/4.5mcg -) 2 puff IH BID [facility] Last Admin: 04/09/17 12:25 Dose: 2 puff Carvedilol (Coreg -) 3.125 mg PO BID [facility] Last Admin: 04/09/17 12:23 Dose: 3.125 mg Diphenhydramine HCl (Benadryl -) 25 mg PO Q6H PRN PRN Reason: FOR ITCHING Docusate Sodium (Colace -) 300 mg PO HS [facility] Last Admin: 04/08/17 21:49 Dose: Not Given Gabapentin (Neurontin -) 100 mg PO BID [facility] Last Admin: 04/09/17 12:23 Dose: 100 mg Haloperidol (Haldol Injection (Fast Acting) -) 2 mg IM Q4H PRN PRN Reason: AGITATION Last Admin: 04/06/17 11:50 Dose: 2 mg Piperacillin Sod/Tazobactam (Sod 2.25 gm/ Dextrose) 50 mls @ 100 mls/hr IVPB Q8H-IV OTIS PRN Reason: Protocol Last Admin: 04/09/17 12:25 Dose: 100 mls/hr Midodrine (Proamatine -) 10 mg PO TID-MID [facility] Last Admin: 04/09/17 13:42 Dose: Not Given Ondansetron HCl (Zofran Injection) 4 mg IVPUSH Q6H PRN PRN Reason: NAUSEA AND/OR VOMITING Oxycodone HCl (Roxicodone -) 5 mg PO Q4H PRN PRN Reason: PAIN Last Admin: 04/08/17 14:53 Dose: 5 mg Quetiapine Fumarate (Seroquel -) 25 mg PO BID [facility] Last Admin: 04/09/17 12:24 Dose: 25 mg Ranitidine HCl (Zantac Oral Solution -) 150 mg PO DAILY [facility] Last Admin: 04/09/17 12:25 Dose: 150 mg Rosuvastatin Calcium (Crestor -) 5 mg PO HS [facility] Last Admin: 04/08/17 21:47 Dose: 5 mg Silver Sulfadiazine (Silvadene -) 1 applic TP BID [facility] Last Admin: 04/09/17 12:24 Dose: 1 applic Sucralfate (Carafate Oral Suspension -) 0.5 gm PO BID [facility] Last Admin: 04/09/17 12:23 Dose: 0.5 gm Warfarin Sodium (Coumadin -) 5 mg PO DAILY@1800 [facility] Last Admin: 04/09/17 12:13 Dose: Not Given - Objective Vital Signs: Vital Signs Temperature 97.9 F 04/09/17 14:51 Pulse Rate 87 04/09/17 14:51 Respiratory Rate 20 04/09/17 14:51 Blood Pressure 98/51 04/09/17 14:51 O2 Sat by Pulse Oximetry (%) 95 04/08/17 21:00 Constitutional: Yes: No Distress HENT: Yes: WNL Neck: Yes: Supple Cardiovascular: Yes: Regular Rate and Rhythm Respiratory: Yes: Regular Gastrointestinal: Yes: Normal Bowel Sounds, Soft Extremities: Yes: Amputation (Lt BKA, Rt AKA), Other Wound/Incision: Yes: Kim Intact, Draining Labs: CBC, BMP 04/09/17 08:15 04/09/17 08:15 INR, PTT INR 2.62 (0.82-1.09) H 04/09/17 09:00 Fibrinogen 296.0 mg/dL (238-498) D 03/30/17 06:10 Microbiology 04/08/17 12:30 Drainage (Swab) Gram Stain - Final 04/08/17 12:30 Drainage (Swab) Wound Culture - Preliminary Group D Strep Or Entero Coccus 03/21/17 15:30 Blood - Peripheral Venous Blood Culture - Final NO GROWTH AFTER 5 DAYS INCUBATION 03/21/17 15:30 Blood - Peripheral Venous Blood Culture - Final NO GROWTH AFTER 5 DAYS INCUBATION 03/14/17 01:20 Blood - Peripheral Venous Blood Culture - Final NO GROWTH AFTER 5 DAYS INCUBATION 03/14/17 01:15 Blood - Peripheral Venous Blood Culture - Final NO GROWTH AFTER 5 DAYS INCUBATION 03/14/17 13:30 Foot - Left Gram Stain - Final 03/14/17 13:30 Foot - Left Wound Culture - Final Serratia Marcescens Raoultella (K) Ornithinolytica Problem List - Problems (1) Atrial fibrillation Code(s): I48.91 - UNSPECIFIED ATRIAL FIBRILLATION Qualifiers: Atrial fibrillation type: persistent Qualified Code(s): I48.1 - Persistent atrial fibrillation (2) Critical lower limb ischemia Code(s): I99.8 - OTHER DISORDER OF CIRCULATORY SYSTEM (3) HTN (hypertension) Code(s): I10 - ESSENTIAL (PRIMARY) HYPERTENSION Qualifiers: Hypertension type: essential hypertension Qualified Code(s): I10 - Essential (primary) hypertension Assessment/Plan LLE gangrene s/p Lt BKA Infected stump Fever -- continue Zosyn IV -- f/u final wound culture results -- monitor temps
[2017-04-09] MEDS: ACETAMINOPHEN 325 MG TABLET (FP) PO PRN (17:30)
[2017-04-09] MEDS: DOCUSATE SODIUM 100 MG CAPSULE (FP) PO SCH (23:21)
[2017-04-09] MEDS: ROSUVASTATIN CA 5 MG TABLET (FP) PO SCH (23:22)
[2017-04-10] MEDS: PIPERACILLIN/TAZOB 2.25 GM 2.25 GM in DEXTROSE 5%-WATER - 50 ML IVPB SCH ×3 (01:43→17:51)
[2017-04-10] MEDS ORDERED: PT OWN MED DRAWER 7, Y5N ONE ×4 (09:38→17:42)
[2017-04-10] MEDS: AMINO ACIDS/PROTEIN HYDROLYS 30 ML LIQUID.PKT PO SCH ×2 (09:39→17:30)
[2017-04-10] MEDS: SUCRALFATE 1 GM/10 ML UNIT DOSE CUPS PO SCH ×2 (09:44→22:18)
[2017-04-10] MEDS: QUEtiapine FUMARATE 25 MG TABLET (FP) PO SCH (09:45)
[2017-04-10] MEDS: CARVEDILOL 3.125 MG TABLET (FP) PO SCH ×2 (09:45→22:19)
[2017-04-10] MEDS: MIDODRINE HCL 5 MG TABLET PO SCH ×3 (09:45→17:51)
[2017-04-10] MEDS: GABAPENTIN 100 MG CAPSULE (FP) PO SCH ×2 (09:45→22:00)
[2017-04-10] MEDS: RANITIDINE HCL 150 MG/10 ML UNIT-DOSE PO SCH (09:46)
[2017-04-10] MEDS: BUDESONIDE/FORMETEROL FUMARATE 80/4.5 mcg INHALER IH SCH ×2 (09:46→22:22)
[2017-04-10] MEDS: SILVER SULFADIAZINE 1% TOP CREAM 400 GM JAR TP SCH ×2 (09:46→22:21)
--- NOTE | 2017-04-10 10:01 | PN ---
Physical Exam: SUBJECTIVE: Patient seen and examined. OBJECTIVE: Vital Signs Period Temp Pulse Resp BP Sys/Coleman Pulse Ox Last 24 Hr 97.8 F-100.5 F 76-96 18-20 86-128/51-64 GENERAL: Lethargic. Responses appropriately to voice, in no acute distress. LUNGS: Breath sounds equal, clear to auscultation bilaterally, no wheezes, no crackles, no accessory muscle use. HEART: Irregular rate and rhythm, S1, S2 without murmur, rub or gallop. ABDOMEN: Soft, nontender, nondistended, normoactive bowel sounds. EXTREMITIES: 2+ pulses, warm, well-perfused, no edema. NEUROLOGICAL: Cranial nerves II through XII grossly intact. Normal speech, gait not observed. SKIN: L BKA staple line with purulent foul smelling drainage. Laboratory Results - last 24 hr 04/09/17 04/09/17 04/09/17 08:15 08:15 09:00 PT with INR 29.60 H INR 2.62 H Sodium 143 Cancelled Potassium 4.1 Cancelled Chloride 104 Cancelled Carbon Dioxide 29 Cancelled Anion Gap 10 Cancelled BUN 65 H D Cancelled Creatinine 7.6 H* Cancelled Creat Clearance w eGFR 6.99 Random Glucose 94 Cancelled Calcium 7.5 L Cancelled Phosphorus 3.3 D Total Bilirubin 0.6 AST 14 L ALT 10 L D Alkaline Phosphatase 92 Total Protein 4.4 L Albumin 1.7 L Active Medications Generic Name Dose Route Start Last Admin Trade Name Freq PRN Reason Stop Dose Admin Acetaminophen 650 mg 04/08/17 12:41 04/09/17 17:30 Tylenol - PO 650 mg Q6H PRN Administration FEVER OR PAIN Amino Acids 30 ml 04/02/17 11:00 04/10/17 09:39 Prosource No Carb Liquid Pkt PO Not Given BID@0800,1730 [facility] Budesonide/Formoterol Fumarate 2 puff 04/01/17 22:00 04/10/17 09:46 Symbicort 80/4.5mcg - IH 2 puff BID [facility] Administration Carvedilol 3.125 mg 04/01/17 22:00 04/10/17 09:45 Coreg - PO 3.125 mg BID [facility] Administration Diphenhydramine HCl 25 mg 04/01/17 17:31 Benadryl - PO Q6H PRN FOR ITCHING Docusate Sodium 300 mg 04/01/17 22:00 04/09/17 23:21 Colace - PO 300 mg HS [facility] Administration Gabapentin 100 mg 04/06/17 10:00 04/10/17 09:45 Neurontin - PO 100 mg BID [facility] Administration Haloperidol 2 mg 04/04/17 16:53 04/06/17 11:50 Haldol Injection (Fast Acting) - IM 2 mg Q4H PRN Administration AGITATION Piperacillin Sod/Tazobactam 50 mls @ 100 mls/hr 04/08/17 16:30 04/10/17 09:46 Sod 2.25 gm/ Dextrose IVPB 100 mls/hr Q8H-IV OTIS Administration Protocol Midodrine 10 mg 04/01/17 18:00 04/10/17 09:45 Proamatine - PO 10 mg TID-MID [facility] Administration Ondansetron HCl 4 mg 04/01/17 17:31 Zofran Injection IVPUSH Q6H PRN NAUSEA AND/OR VOMITING Quetiapine Fumarate 25 mg 04/02/17 10:50 04/10/17 09:45 Seroquel - PO 25 mg BID [facility] Administration Ranitidine HCl 150 mg 04/02/17 10:00 04/10/17 09:46 Zantac Oral Solution - PO 150 mg DAILY [facility] Administration Rosuvastatin Calcium 5 mg 04/01/17 22:00 04/09/17 23:22 Crestor - PO 5 mg HS [facility] Administration Silver Sulfadiazine 1 applic 04/06/17 13:45 04/10/17 09:46 Silvadene - TP 1 applic BID [facility] Administration Sucralfate 0.5 gm 04/01/17 22:00 04/10/17 09:44 Carafate Oral Suspension - PO 0.5 gm BID [facility] Administration Warfarin Sodium 5 mg 04/09/17 11:15 04/09/17 17:29 Coumadin - PO 5 mg DAILY@1800 [facility] Administration Imaging: AP portable chest: Shortness of breath. Since the prior set 03/14/2017, there are progressive congestive and infiltrative changes with bilateral effusions. There is a large heart, chin artifact, sclerotic knob and degenerative changes. Correlation recommended. Reported By: Yunior Aguilar MD 04/07/[address] angiogram of the abdomen and pelvis without and with IV contrast INDICATION: Evaluate for dissection. TECHNIQUE: CT of the abdomen and pelvis without oral contrast, prior to and following the intravenous administration of 94 mL of Visipaque 320 contrast in the arterial and portal venous phase. Multiplanar postprocessed reconstructions including MIP reformations. COMPARISON: 2016 CTA. FINDINGS: The visualized distal descending thoracic aorta is tortuous and ectatic with severe atherosclerotic calcification and eccentric noncalcified plaque. There is partially thrombosed infrarenal abdominal aortic aneurysm measuring up to 4.6 cm in mid sagittal plane diameter, containing severe calcific atherosclerosis and significant circumferential mural thrombus and irregular noncalcified plaque circumferential irregular atheromatous plaque. Narrowest abdominal aortic lumen measures 1.3 x 2.6 cm in AP and transverse dimensions immediately proximal to the origin of the DEBORAH. This aneurysm commences approximately 2.3 cm caudal to the left renal artery ostium and approximately 2.7 cm caudal to the right renal artery ostium. No evidence of acute intramural hematoma or acute dissection. There is severe stenosis at the origins of bilateral renal arteries with poststenotic dilatation and symmetric renal atrophy, at least some of which is vascular in etiology. There is significant calcific atherosclerosis of the SMA ostium and celiac trunk with mild to moderate luminal narrowing. There is significant calcific atherosclerosis of all branch vessels. The origin of the DEBORAH is occluded with distal reconstitution, likely secondary to collaterals. Severe calcific atherosclerosis along bilateral common iliac, internal iliac and external iliac arteries. The right common iliac artery is ectatic measuring up to 1.8 cm in diameter in the left iliac artery is ectatic, measuring up to 1.9 cm in diameter. There is occlusion of the right internal iliac artery distal reconstitution which is likely secondary to collaterals. There is severe calcific atherosclerosis along bilateral common femoral arteries and visualized superficial and profunda femoral arteries. There is a stent in the left common femoral artery extending into the left SFA. There is occlusion of the right superficial femoral artery high-grade stenosis at the origin of the right profunda femoral artery. There is multichamber cardiomegaly with severe coronary artery calcific atherosclerosis. There is dense calcification of the aortic valve. The left coronary cusp of the aortic valve is prominent and rounded, measuring 1.7 x 1.9 cm in AP and transverse dimensions. There is a small volume of pericardial fluid which may be physiologic. There are incompletely imaged bilateral pleural effusions at least moderate in size with compressive atelectasis of multiple basal segments in both lower lobes. Cirrhotic configuration of the liver with multiple cysts. There are punctate calcifications in the right and left hepatic lobes, which may be the sequela of prior granulomatous disease. There are surgical gallbladder fossa. The common bile duct is dilated, measuring up to 15 mm in diameter. Unremarkable pancreas. There is splenomegaly. There are gastric varices. There is thickening of bilateral adrenal glands which may be on the basis of hyperplasia. There is no hydronephrosis. Subcentimeter hypodense lesions scattered within both kidneys are too small to characterize. There is moderate volume of abdominopelvic ascites. No pathologically dilated loops of large or small bowel. Despite underdistention, there appears to be annular wall thickening of the nearly the entire colon, most prominent in the cecum, ascending and sigmoid colon. There is a small fat- containing umbilical hernia. No gross free intraperitoneal air. Urinary bladder is underdistended with apparent wall thickening. There is marked enlargement of the prostate gland. There is a moderate-sized right inguinal hernia containing fat and ascites. There are bilateral hydroceles. Nonspecific sclerotic lesion in the right femoral head, punctate sclerotic lesion in the left iliac bone may be enostosis. There is chronic bilateral L5 spondylolysis with grade 1 anterolisthesis of L5 on S1. There are multilevel degenerative changes in the lumbar spine. There is body wall edema/anasarca. IMPRESSION: 1. Infrarenal abdominal aortic aneurysm as described above, measuring up to 4.6 cm in mid sagittal plane diameter, overall similar to the CTA. No evidence of acute intramural hematoma or dissection within the abdominal aorta. 2. Bilateral ectatic common iliac arteries measuring up to 1.9 cm in diameter with severe calcific atherosclerosis. Occluded right internal iliac artery origin, occluded right SFA and high-grade stenosis at the origin of the right profunda femoral artery. 3. Severe, high-grade ostial stenosis of bilateral renal arteries with near complete occlusion. Bilateral atrophic renal arteries, at least some of which is due to vascular insufficiency. 4. Occlusion at the origin of the DEBORAH with reconstitution, most likely secondary to collaterals. Significant calcific atherosclerosis at the ostia of the celiac trunk and SMA likely resulting in less than 50% stenosis. 5. Calcification of the aortic valve. Prominent left coronary cusp. Please correlate with echocardiogram. 6. Incompletely imaged bilateral pleural effusions, at least moderate in size with compressive atelectasis of the lung bases. Please correlate with dedicated imaging of the chest. 7. Cirrhotic configuration of the liver and evidence of portal hypertension with splenomegaly, gastric varices and moderate abdominopelvic ascites. 8. Apparent wall thickening of nearly the entire colon, despite underdistention may be attributed to some combination of portal enteropathy or a nonspecific infectious versus inflammatory colitis. Please correlate clinically. 9. Marked enlargement of the prostate gland. Please correlate with PSA and physical exam. Apparent thickening of the urinary bladder wall may be due to underdistention or chronic outlet obstruction. Please correlate with urinalysis to exclude acute cystitis. 10. Sclerotic bones may be secondary to renal osteodystrophy. Reported By: Lamin Barry MD 03/27/172035 MRI OF THE BRAIN Sagittal and coronal T1, axial T2, FLAIR and diffusion images of the brain were obtained. The study is degraded by motion artifact but is diagnostic. On the sagittal images, the corpus callosum pineal and pituitary regions and the craniovertebral junction are unremarkable. On the axial and coronal images, the ventricles are dilated with prominence of the sulci changes related to generalized volume loss. There are no intra or extra-axial masses or collections. There are multiple foci of small vessel infarction in the periventricular white matter . There is an old infarct of the medial aspect of the left occipital lobe. There are no acute infarction on the diffusion sequence and there is no hemorrhage. Normal flow-void is in the basilar and internal carotid arteries. There is no acute sinusitis. IMPRESSION: Generalized volume loss with multiple foci of a small vessel infarction in the periventricular white matter with an old infarct of the medial aspect of the left occipital lobe.. There is no mass lesion acute infarction or hemorrhage. Reported By: Vish Youngblood MD 03/22/17 2116 Microbiology 04/08/17 12:30 Drainage (Swab) Gram Stain - Final 04/08/17 12:30 Drainage (Swab) Wound Culture - Final Vr Ec Faecium 04/08/17 17:20 Blood - Peripheral Venous Blood Culture - Preliminary NO GROWTH OBTAINED AFTER 24 HOURS, INCUBATION TO CONTINUE FOR 4 DAYS. 04/08/17 17:20 Blood - Peripheral Venous Blood Culture - Preliminary NO GROWTH OBTAINED AFTER 24 HOURS, INCUBATION TO CONTINUE FOR 4 DAYS. 11/06/17 15:30 Blood - Peripheral Venous Blood Culture - Final NO GROWTH AFTER 5 DAYS INCUBATION 03/21/17 15:30 Blood - Peripheral Venous Blood Culture - Final NO GROWTH AFTER 5 DAYS INCUBATION 03/14/17 01:20 Blood - Peripheral Venous Blood Culture - Final NO GROWTH AFTER 5 DAYS INCUBATION 03/14/17 01:15 Blood - Peripheral Venous Blood Culture - Final NO GROWTH AFTER 5 DAYS INCUBATION 03/14/17 13:30 Foot - Left Gram Stain - Final 03/14/17 13:30 Foot - Left Wound Culture - Final Serratia Marcescens Raoultella (K) Ornithinolytica ASSESSMENT/PLAN: A: 77 year old male with PMHx of ESRD on HD (,,), HTN, DVT, right AKA 3 months ago, 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 P: Left SFA occlusion, left foot gangrene, severe sepsis - S/p BKA 04/01 - Now with foul smelling drainage - Tmax 100.5 yesterday - Wound cx with VREF - D/C Zosyn - ?Start Linezolid - Contact precautions - Pain management - Appreciate ID consult - Appreciate vascular surgery consult Hx of DVT - hold Coumadin tonight - INR supratherapeutic Thrombocytopenia - no active bleeding - trend platelets - hold Coumadin tonight 2/2 supratherapeutic INR - Appreciate hematology consult Acute metabolic encephalopathy - Improving - CT head with left occipital infarct - MRI brain as above ESRD - Continue HD as scheduled - Renal diet A.fib, chronic - hold Coumadin tonight - INR supratherapeutic AAA - F/u outpatient Chronic anemia - Monitor H&H - Continue to monitor F/E/N - Monitor electrolytes - Renal diet PPX - INR supratherapeutic Dispo- Requires continued inpatient care. CODE STATUS: FULL CODE Visit type - Emergency Visit Emergency Visit: Yes ED Registration Date: 03/14/17 Care time: The patient presented to the Emergency Department on the above date and was hospitalized for further evaluation of their emergent condition. - New Patient This patient is new to me today: Yes Date on this admission: 04/10/17 - Critical Care Critical Care patient: No
--- NOTE | 2017-04-10 10:24 | PN ---
Progress Note, Physician Chief Complaint: S/P SFA angioplasty and stent Post left BKA No new complaints History of Present Illness: Patient was seen and examined. Awake. Chart was reviewed Denies chest pain or SOB Not in distress Supratherapeutic INR - Current Medication List Current Medications: Active Medications Acetaminophen (Tylenol -) 650 mg PO Q6H PRN PRN Reason: FEVER OR PAIN Last Admin: 04/09/17 17:30 Dose: 650 mg Amino Acids (Prosource No Carb Liquid Pkt) 30 ml PO BID@0800,1730 [facility] Last Admin: 04/10/17 09:39 Dose: Not Given Budesonide/Formoterol Fumarate (Symbicort 80/4.5mcg -) 2 puff IH BID [facility] Last Admin: 04/10/17 09:46 Dose: 2 puff Carvedilol (Coreg -) 3.125 mg PO BID [facility] Last Admin: 04/10/17 09:45 Dose: 3.125 mg Diphenhydramine HCl (Benadryl -) 25 mg PO Q6H PRN PRN Reason: FOR ITCHING Docusate Sodium (Colace -) 300 mg PO HS [facility] Last Admin: 04/09/17 23:21 Dose: 300 mg Gabapentin (Neurontin -) 100 mg PO BID [facility] Last Admin: 04/10/17 09:45 Dose: 100 mg Haloperidol (Haldol Injection (Fast Acting) -) 2 mg IM Q4H PRN PRN Reason: AGITATION Last Admin: 04/06/17 11:50 Dose: 2 mg Piperacillin Sod/Tazobactam (Sod 2.25 gm/ Dextrose) 50 mls @ 100 mls/hr IVPB Q8H-IV OTIS PRN Reason: Protocol Last Admin: 04/10/17 09:46 Dose: 100 mls/hr Midodrine (Proamatine -) 10 mg PO TID-MID [facility] Last Admin: 04/10/17 09:45 Dose: 10 mg Ondansetron HCl (Zofran Injection) 4 mg IVPUSH Q6H PRN PRN Reason: NAUSEA AND/OR VOMITING Quetiapine Fumarate (Seroquel -) 25 mg PO BID [facility] Last Admin: 04/10/17 09:45 Dose: 25 mg Ranitidine HCl (Zantac Oral Solution -) 150 mg PO DAILY [facility] Last Admin: 04/10/17 09:46 Dose: 150 mg Rosuvastatin Calcium (Crestor -) 5 mg PO HS [facility] Last Admin: 04/09/17 23:22 Dose: 5 mg Silver Sulfadiazine (Silvadene -) 1 applic TP BID [facility] Last Admin: 04/10/17 09:46 Dose: 1 applic Sucralfate (Carafate Oral Suspension -) 0.5 gm PO BID [facility] Last Admin: 04/10/17 09:44 Dose: 0.5 gm Warfarin Sodium (Coumadin -) 5 mg PO DAILY@1800 [facility] Last Admin: 04/09/17 17:29 Dose: 5 mg - Objective Vital Signs: Vital Signs Temperature 98.4 F 04/10/17 07:55 Pulse Rate 76 04/10/17 09:43 Respiratory Rate 20 04/10/17 09:43 Blood Pressure 95/52 04/10/17 09:43 O2 Sat by Pulse Oximetry (%) 95 04/08/17 21:00 Neck: Yes: Supple Cardiovascular: Yes: Pulse Irregular, S1, S2 Respiratory: Yes: CTA Bilaterally Gastrointestinal: Yes: Normal Bowel Sounds, Soft. No: Tenderness Extremities: Yes: Amputation Edema: No Labs: CBC, BMP 04/09/17 08:15 04/09/17 08:15 INR, PTT INR 2.62 (0.82-1.09) H 04/09/17 09:00 Fibrinogen 296.0 mg/dL (238-498) D 03/30/17 06:10 Problem List - Problems (1) Critical lower limb ischemia Code(s): I99.8 - OTHER DISORDER OF CIRCULATORY SYSTEM (2) HLD (hyperlipidemia) Code(s): E78.5 - HYPERLIPIDEMIA, UNSPECIFIED Qualifiers: Hyperlipidemia type: pure hypercholesterolemia Qualified Code(s): E78.00 - Pure hypercholesterolemia, unspecified (3) HTN (hypertension) Code(s): I10 - ESSENTIAL (PRIMARY) HYPERTENSION Qualifiers: Hypertension type: essential hypertension Qualified Code(s): I10 - Essential (primary) hypertension (4) ESRD (end stage renal disease) Code(s): N18.6 - END STAGE RENAL DISEASE (5) Anemia Code(s): D64.9 - ANEMIA, UNSPECIFIED (6) Atrial fibrillation Code(s): I48.91 - UNSPECIFIED ATRIAL FIBRILLATION Qualifiers: Atrial fibrillation type: persistent Qualified Code(s): I48.1 - Persistent atrial fibrillation (7) Amputated toe of left foot Code(s): Z89.422 - ACQUIRED ABSENCE OF OTHER LEFT TOE(S) (8) S/P AKA (above knee amputation) Code(s): Z89.619 - ACQUIRED ABSENCE OF UNSPECIFIED LEG ABOVE KNEE Qualifiers: Laterality: right Qualified Code(s): Z89.611 - Acquired absence of right leg above knee (9) Cardiomyopathy Code(s): I42.9 - CARDIOMYOPATHY, UNSPECIFIED Qualifiers: Cardiomyopathy type: unspecified Qualified Code(s): I42.9 - Cardiomyopathy , unspecified (10) Systolic dysfunction, left ventricle Code(s): I51.9 - HEART DISEASE, UNSPECIFIED Assessment/Plan 1. PAD post right AKA and left toe amputation, occluded left SFA post angioplasty/stent, post left BKA 2. CAD angina pectoris 3. Dilated cardiomyopathy with chronic class I-II NYHA classification LV systolic failure, compensated/ euvolemic 4. Persistent atrial fibrillation [id number] score of 4 - supratherapeutic INR 5. Severe TR with pulmonary HTN 6. HTN 7. ESRD on HD 8. History of DVT 9. Anemia 10. Thrombocytopenia PLAN: 1. Continue Coreg 2. Continue Crestor 3. HD as per renal service 4. Continue Coumadin per INR 2-3 - hold today and monitor INR 5. Supportive care Further plans are to follow Elias Landrum MD
--- NOTE | 2017-04-10 10:49 | PN ---
Progress Note (short form) - Note Progress Note: Lethargic, confused. No acute events overnight. Breathing non-labored. Intake & Output 04/07/17 04/08/17 04/09/17 04/10/17 23:59 23:59 23:59 23:59 Intake Total 720 100 250 200 Output Total 350 Balance 720 -250 250 200 Weight 124 lb 4 oz 124 lb 1.6 oz 122 lb 9 oz 122 lb 7 oz Last Vital Signs Temp Pulse Resp BP Pulse Ox 98.4 F 76 20 95/52 95 04/10/17 07:55 04/10/17 09:43 04/10/17 09:43 04/10/17 09:43 04/08/17 21:00 Active Medications Acetaminophen (Tylenol -) 650 mg PO Q6H PRN PRN Reason: FEVER OR PAIN Last Admin: 04/09/17 17:30 Dose: 650 mg Amino Acids (Prosource No Carb Liquid Pkt) 30 ml PO BID@0800,1730 [facility] Last Admin: 04/10/17 09:39 Dose: Not Given Budesonide/Formoterol Fumarate (Symbicort 80/4.5mcg -) 2 puff IH BID [facility] Last Admin: 04/10/17 09:46 Dose: 2 puff Carvedilol (Coreg -) 3.125 mg PO BID [facility] Last Admin: 04/10/17 09:45 Dose: 3.125 mg Diphenhydramine HCl (Benadryl -) 25 mg PO Q6H PRN PRN Reason: FOR ITCHING Docusate Sodium (Colace -) 300 mg PO HS [facility] Last Admin: 04/09/17 23:21 Dose: 300 mg Gabapentin (Neurontin -) 100 mg PO BID [facility] Last Admin: 04/10/17 09:45 Dose: 100 mg Haloperidol (Haldol Injection (Fast Acting) -) 2 mg IM Q4H PRN PRN Reason: AGITATION Last Admin: 04/06/17 11:50 Dose: 2 mg Piperacillin Sod/Tazobactam (Sod 2.25 gm/ Dextrose) 50 mls @ 100 mls/hr IVPB Q8H-IV OTIS PRN Reason: Protocol Last Admin: 04/10/17 09:46 Dose: 100 mls/hr Midodrine (Proamatine -) 10 mg PO TID-MID [facility] Last Admin: 04/10/17 09:45 Dose: 10 mg Ondansetron HCl (Zofran Injection) 4 mg IVPUSH Q6H PRN PRN Reason: NAUSEA AND/OR VOMITING Quetiapine Fumarate (Seroquel -) 25 mg PO BID [facility] Last Admin: 04/10/17 09:45 Dose: 25 mg Ranitidine HCl (Zantac Oral Solution -) 150 mg PO DAILY [facility] Last Admin: 04/10/17 09:46 Dose: 150 mg Rosuvastatin Calcium (Crestor -) 5 mg PO HS [facility] Last Admin: 04/09/17 23:22 Dose: 5 mg Silver Sulfadiazine (Silvadene -) 1 applic TP BID [facility] Last Admin: 04/10/17 09:46 Dose: 1 applic Sucralfate (Carafate Oral Suspension -) 0.5 gm PO BID [facility] Last Admin: 04/10/17 09:44 Dose: 0.5 gm Warfarin Sodium (Coumadin -) 5 mg PO DAILY@1800 [facility] Last Admin: 04/09/17 17:29 Dose: 5 mg Constitutional: Yes: Confused, NAD Eyes: Yes: Conjunctiva Clear, EOM Intact HENT: Yes: Atraumatic, Normocephalic Neck: Yes: Supple, Trachea Midline Cardiovascular: Yes: Regular Rate and Rhythm Respiratory: Yes: few basilar Rhonchi ...Clubbing: No Gastrointestinal: Yes: Normal Bowel Sounds, Soft. No: Tenderness Extremities: Yes: Bilateral LE amputation Edema: No Neurological: Yes: Confused Labs: Laboratory Results - last 24 hr 04/09/17 08:15 Sodium Cancelled Potassium Cancelled Chloride Cancelled Carbon Dioxide Cancelled Anion Gap Cancelled BUN Cancelled Creatinine Cancelled Random Glucose Cancelled Calcium Cancelled Phosphorus 3.3 D Problem List - Problems (1) Open wnd foot-complicated Code(s): S91.309A - UNSPECIFIED OPEN WOUND, UNSPECIFIED FOOT, INITIAL ENCOUNTER (2) Peripheral arterial disease Code(s): I73.9 - PERIPHERAL VASCULAR DISEASE, UNSPECIFIED (3) Anemia Code(s): D64.9 - ANEMIA, UNSPECIFIED (4) Atrial fibrillation Code(s): I48.91 - UNSPECIFIED ATRIAL FIBRILLATION Qualifiers: Atrial fibrillation type: persistent Qualified Code(s): I48.1 - Persistent atrial fibrillation; I48.1 - Persistent atrial fibrillation; I48.1 - Persistent atrial fibrillation; I48.1 - Persistent atrial fibrillation (5) ESRD (end stage renal disease) Code(s): N18.6 - END STAGE RENAL DISEASE (6) HLD (hyperlipidemia) Code(s): E78.5 - HYPERLIPIDEMIA, UNSPECIFIED Qualifiers: Hyperlipidemia type: pure hypercholesterolemia Qualified Code(s): E78.00 - Pure hypercholesterolemia, unspecified; E78.00 - Pure hypercholesterolemia, unspecified; E78.00 - Pure hypercholesterolemia, unspecified; E78.0 - Pure hypercholesterolemia (7) HTN (hypertension) Code(s): I10 - ESSENTIAL (PRIMARY) HYPERTENSION Qualifiers: Hypertension type: essential hypertension Qualified Code(s): I10 - Essential (primary) hypertension; I10 - Essential (primary) hypertension; I10 - Essential (primary) hypertension (8) S/P AKA (above knee amputation) Code(s): Z89.619 - ACQUIRED ABSENCE OF UNSPECIFIED LEG ABOVE KNEE Qualifiers: Laterality: right Qualified Code(s): Z89.611 - Acquired absence of right leg above knee; Z89.611 - Acquired absence of right leg above knee; Z89.611 - Acquired absence of right leg above knee (9) Systolic dysfunction, left ventricle Code(s): I51.9 - HEART DISEASE, UNSPECIFIED Assessment/Plan Foot Wound Infection Peripheral Artery Disease ESRD on HD Atrial Fibrillation Severe LV Systolic Dysfunction Pulmonary HTN Supratherapeutic INR Thrombocytopenia AAA Liver Cirrhosis 2 cm right mid lung zone irregular density along the fissure: (?) inflammatory versus mass s/p R AKA Pain control Local wound care per surgery HD per Renal Normal transfusion thresholds O2 as needed AC Will need close short term outpatient CT follow up of lung nodule. Dr Braun
[2017-04-10 11:17] LABS: MCH 28.6 pg (25.7-33.7); MCHC 31.2 g/dl (32.0-35.9); MEAN CELL VOLUME 91.6 fl (80-96); MEAN PLT VOLUME 8.1 fl (7.5-11.1); PLATELET COUNT 75 K/MM3 (134-434); WHITE BLOOD COUNT 6.9 K/mm3 (4.0-10.0)
[2017-04-10 11:31] LABS: PROTHROMBIN TIME (PATIENT) 45.5 SEC (9.98-11.88)
[2017-04-10 11:45] LABS: INR 4.03 (0.82-1.09)
[2017-04-10 12:07] LABS: ALBUMIN 1.7 g/dl (3.4-5.0); ANION GAP 10 (8-16); BILIRUBIN,TOTAL 0.4 mg/dL (0.2-1.0); CALCIUM 7.5 mg/dL (8.5-10.1); CO2 30 mmol/L (21-32); CREATININE 6.9 mg/dL (0.7-1.3); GLUCOSE,RANDOM 93 mg/dL (74-106); SGPT/ALT 9 U/L (12-78); TOT PROT 4.6 g/dl (6.4-8.2)
[2017-04-10 12:08] LABS: ALK PHOS 95 U/L (45-117); ANISOCYTOSIS 1+; POIKILOCYTOSIS 1+
[2017-04-10 12:09] LABS: PLATELET COMMENTS DECREASE; TEAR DROP CELLS FEW
[2017-04-10 12:10] LABS: SGOT/AST 15 U/L (15-37)
--- NOTE | 2017-04-10 16:19 | PN ---
Progress Note, Physician History of Present Illness: Pt weak but without distress. No new events. Tmax 100.5F. - Current Medication List Current Medications: Active Medications Acetaminophen (Tylenol -) 650 mg PO Q6H PRN PRN Reason: FEVER OR PAIN Last Admin: 04/09/17 17:30 Dose: 650 mg Amino Acids (Prosource No Carb Liquid Pkt) 30 ml PO BID@0800,1730 [facility] Last Admin: 04/10/17 09:39 Dose: Not Given Budesonide/Formoterol Fumarate (Symbicort 80/4.5mcg -) 2 puff IH BID [facility] Last Admin: 04/10/17 09:46 Dose: 2 puff Carvedilol (Coreg -) 3.125 mg PO BID [facility] Last Admin: 04/10/17 09:45 Dose: 3.125 mg Diphenhydramine HCl (Benadryl -) 25 mg PO Q6H PRN PRN Reason: FOR ITCHING Docusate Sodium (Colace -) 300 mg PO HS [facility] Last Admin: 04/09/17 23:21 Dose: 300 mg Gabapentin (Neurontin -) 100 mg PO BID [facility] Last Admin: 04/10/17 09:45 Dose: 100 mg Haloperidol (Haldol Injection (Fast Acting) -) 2 mg IM Q4H PRN PRN Reason: AGITATION Last Admin: 04/06/17 11:50 Dose: 2 mg Piperacillin Sod/Tazobactam (Sod 2.25 gm/ Dextrose) 50 mls @ 100 mls/hr IVPB Q8H-IV OTIS PRN Reason: Protocol Last Admin: 04/10/17 09:46 Dose: 100 mls/hr Midodrine (Proamatine -) 10 mg PO TID-MID [facility] Last Admin: 04/10/17 14:43 Dose: 10 mg Ondansetron HCl (Zofran Injection) 4 mg IVPUSH Q6H PRN PRN Reason: NAUSEA AND/OR VOMITING Quetiapine Fumarate (Seroquel -) 25 mg PO BID [facility] Last Admin: 04/10/17 09:45 Dose: 25 mg Ranitidine HCl (Zantac Oral Solution -) 150 mg PO DAILY [facility] Last Admin: 04/10/17 09:46 Dose: 150 mg Rosuvastatin Calcium (Crestor -) 5 mg PO HS [facility] Last Admin: 04/09/17 23:22 Dose: 5 mg Silver Sulfadiazine (Silvadene -) 1 applic TP BID [facility] Last Admin: 04/10/17 09:46 Dose: 1 applic Sucralfate (Carafate Oral Suspension -) 0.5 gm PO BID [facility] Last Admin: 04/10/17 09:44 Dose: 0.5 gm - Objective Vital Signs: Vital Signs Temperature 99.4 F 04/10/17 14:49 Pulse Rate 76 04/10/17 14:49 Respiratory Rate 20 04/10/17 14:49 Blood Pressure 84/46 04/10/17 14:49 O2 Sat by Pulse Oximetry (%) 98 04/10/17 09:00 Constitutional: Yes: No Distress Neck: Yes: Supple Cardiovascular: Yes: Regular Rate and Rhythm, Murmur Respiratory: Yes: Regular Gastrointestinal: Yes: Normal Bowel Sounds, Soft Extremities: Yes: Amputation (Rt AKA healed, Lt BKA wound site with wound with mild drainage) Wound/Incision: Yes: Other (dressed) Labs: CBC, BMP 04/10/17 11:12 04/10/17 11:12 INR, PTT INR 4.03 (0.82-1.09) H* D 04/10/17 11:12 Fibrinogen 296.0 mg/dL (238-498) D 03/30/17 06:10 Microbiology 04/08/17 12:30 Gram Stain - Final Drainage (Swab) Wound Culture - Final Vr Ec Faecium 04/08/17 17:20 Blood Culture - Preliminary Blood - Peripheral Venous NO GROWTH OBTAINED AFTER 24 HOURS, INCUBATION TO CONTINUE FOR 4 DAYS. 04/08/17 17:20 Blood Culture - Preliminary Blood - Peripheral Venous NO GROWTH OBTAINED AFTER 24 HOURS, INCUBATION TO CONTINUE FOR 4 DAYS. Problem List - Problems (1) Atrial fibrillation Code(s): I48.91 - UNSPECIFIED ATRIAL FIBRILLATION Qualifiers: Atrial fibrillation type: persistent Qualified Code(s): I48.1 - Persistent atrial fibrillation (2) Critical lower limb ischemia Code(s): I99.8 - OTHER DISORDER OF CIRCULATORY SYSTEM (3) HTN (hypertension) Code(s): I10 - ESSENTIAL (PRIMARY) HYPERTENSION Qualifiers: Hypertension type: essential hypertension Qualified Code(s): I10 - Essential (primary) hypertension (4) ESRD (end stage renal disease) Code(s): N18.6 - END STAGE RENAL DISEASE (5) HLD (hyperlipidemia) Code(s): E78.5 - HYPERLIPIDEMIA, UNSPECIFIED Qualifiers: Hyperlipidemia type: pure hypercholesterolemia Qualified Code(s): E78.00 - Pure hypercholesterolemia, unspecified (6) Liver disease, chronic, with cirrhosis Code(s): K74.60 - UNSPECIFIED CIRRHOSIS OF LIVER; K76.9 - LIVER DISEASE, UNSPECIFIED (7) Open wnd foot-complicated Code(s): S91.309A - UNSPECIFIED OPEN WOUND, UNSPECIFIED FOOT, INITIAL ENCOUNTER (8) Peripheral arterial disease Code(s): I73.9 - PERIPHERAL VASCULAR DISEASE, UNSPECIFIED (9) S/P AKA (above knee amputation) Code(s): Z89.619 - ACQUIRED ABSENCE OF UNSPECIFIED LEG ABOVE KNEE Qualifiers: Laterality: right Qualified Code(s): Z89.611 - Acquired absence of right leg above knee Assessment/Plan LLE gangrene s/p Lt BKA Infected stump wound Fever -- continue Zosyn IV -- start Daptomycin 250 mg IV Q2days, give post HD on dialysis days -- monitor temps, still with low grade fever -- continue wound care
--- NOTE | 2017-04-10 16:22 | PN ---
Progress Note, Physician Chief Complaint: Patient is a 77 year old male with a significant past medical history of ESRD HD , atrial fib, hypertension, DVT, right AKA, Recent Left BKA. The patient seen in his bed. Comfortable. Lethargic. History of Present Illness: The patient is on HD, and next HD scheduled for Tuesday - Current Medication List Current Medications: Active Medications Acetaminophen (Tylenol -) 650 mg PO Q6H PRN PRN Reason: FEVER OR PAIN Last Admin: 04/09/17 17:30 Dose: 650 mg Amino Acids (Prosource No Carb Liquid Pkt) 30 ml PO BID@0800,1730 [facility] Last Admin: 04/10/17 09:39 Dose: Not Given Budesonide/Formoterol Fumarate (Symbicort 80/4.5mcg -) 2 puff IH BID [facility] Last Admin: 04/10/17 09:46 Dose: 2 puff Carvedilol (Coreg -) 3.125 mg PO BID [facility] Last Admin: 04/10/17 09:45 Dose: 3.125 mg Diphenhydramine HCl (Benadryl -) 25 mg PO Q6H PRN PRN Reason: FOR ITCHING Docusate Sodium (Colace -) 300 mg PO HS [facility] Last Admin: 04/09/17 23:21 Dose: 300 mg Gabapentin (Neurontin -) 100 mg PO BID [facility] Last Admin: 04/10/17 09:45 Dose: 100 mg Haloperidol (Haldol Injection (Fast Acting) -) 2 mg IM Q4H PRN PRN Reason: AGITATION Last Admin: 04/06/17 11:50 Dose: 2 mg Piperacillin Sod/Tazobactam (Sod 2.25 gm/ Dextrose) 50 mls @ 100 mls/hr IVPB Q8H-IV OTIS PRN Reason: Protocol Last Admin: 04/10/17 09:46 Dose: 100 mls/hr Midodrine (Proamatine -) 10 mg PO TID-MID [facility] Last Admin: 04/10/17 14:43 Dose: 10 mg Ondansetron HCl (Zofran Injection) 4 mg IVPUSH Q6H PRN PRN Reason: NAUSEA AND/OR VOMITING Quetiapine Fumarate (Seroquel -) 25 mg PO BID [facility] Last Admin: 04/10/17 09:45 Dose: 25 mg Ranitidine HCl (Zantac Oral Solution -) 150 mg PO DAILY [facility] Last Admin: 04/10/17 09:46 Dose: 150 mg Rosuvastatin Calcium (Crestor -) 5 mg PO HS [facility] Last Admin: 04/09/17 23:22 Dose: 5 mg Silver Sulfadiazine (Silvadene -) 1 applic TP BID [facility] Last Admin: 04/10/17 09:46 Dose: 1 applic Sucralfate (Carafate Oral Suspension -) 0.5 gm PO BID [facility] Last Admin: 04/10/17 09:44 Dose: 0.5 gm - Objective Vital Signs: Vital Signs Temperature 99.4 F 04/10/17 14:49 Pulse Rate 76 04/10/17 14:49 Respiratory Rate 20 04/10/17 14:49 Blood Pressure 84/46 04/10/17 14:49 O2 Sat by Pulse Oximetry (%) 98 04/10/17 09:00 Eyes: Yes: Conjunctiva Clear HENT: Yes: Normocephalic Neck: Yes: Trachea Midline Cardiovascular: Yes: S1 Respiratory: Yes: CTA Bilaterally, Diminished Gastrointestinal: Yes: Normal Bowel Sounds Genitourinary: No: CVA Tenderness - Left, CVA Tenderness - Right, Hematuria Extremities: Yes: Amputation Neurological: Yes: Lethargy Labs: CBC, BMP 04/10/17 11:12 04/10/17 11:12 INR, PTT INR 4.03 (0.82-1.09) H* D 04/10/17 11:12 Fibrinogen 296.0 mg/dL (238-498) D 03/30/17 06:10 Problem List - Problems (1) Open wnd foot-complicated Code(s): S91.309A - UNSPECIFIED OPEN WOUND, UNSPECIFIED FOOT, INITIAL ENCOUNTER (2) HTN (hypertension) Code(s): I10 - ESSENTIAL (PRIMARY) HYPERTENSION Qualifiers: Qualified Code(s): I10 - Essential (primary) hypertension (3) ESRD (end stage renal disease) Code(s): N18.6 - END STAGE RENAL DISEASE (4) Anemia Code(s): D64.9 - ANEMIA, UNSPECIFIED (5) Atrial fibrillation Code(s): I48.91 - UNSPECIFIED ATRIAL FIBRILLATION Qualifiers: Qualified Code(s): I48.1 - Persistent atrial fibrillation (6) Amputated toe of left foot Code(s): Z89.422 - ACQUIRED ABSENCE OF OTHER LEFT TOE(S) (7) S/P AKA (above knee amputation) Code(s): Z89.619 - ACQUIRED ABSENCE OF UNSPECIFIED LEG ABOVE KNEE Qualifiers: Qualified Code(s): Z89.611 - Acquired absence of right leg above knee Assessment/Plan Patient is a 77 year old male with a significant past medical history of ESRD HD , Atrial fib, hypertension, DVT, right AKA, and recent left BKA. Had last HD yesterday. Next HD scheduled for Tuesday. Awaiting HD placement as Outpatient. Emily San MD
[2017-04-10] MEDS ORDERED: DAPTOMYCIN 250 MG in SODIUM CHLORIDE 50 ML IVPB ONE (16:29)
[2017-04-10] MEDS: ACETAMINOPHEN 325 MG TABLET (FP) PO PRN (17:51)
[2017-04-10] MEDS: ROSUVASTATIN CA 5 MG TABLET (FP) PO SCH (22:00)
[2017-04-10] MEDS: DOCUSATE SODIUM 100 MG CAPSULE (FP) PO SCH (22:17)
[2017-04-10] MEDS: DAPTOMYCIN 250 MG in SODIUM CHLORIDE 50 ML IVPB SCH (22:18)
[2017-04-11] MEDS: PIPERACILLIN/TAZOB 2.25 GM 2.25 GM in DEXTROSE 5%-WATER - 50 ML IVPB SCH ×3 (01:17→18:07)
[2017-04-11 08:16] LABS: BASOPHIL 2.5 % (0-2.0); EOSINOPHIL 2.6 % (0-4.5); MCH 28.1 pg (25.7-33.7); MCHC 30.7 g/dl (32.0-35.9); MEAN CELL VOLUME 91.8 fl (80-96); MEAN PLT VOLUME 8.2 fl (7.5-11.1); NEUTROPHILS 75.8 % (42.8-82.8); PLATELET COUNT 84 K/MM3 (134-434); RDW 21.5 % (11.9-15.9); WHITE BLOOD COUNT 6.9 K/mm3 (4.0-10.0)
[2017-04-11 08:24] LABS: PROTHROMBIN TIME (PATIENT) 46.1 SEC (9.98-11.88)
[2017-04-11 08:35] LABS: ALBUMIN 1.9 g/dl (3.4-5.0); ANION GAP 10 (8-16); BILIRUBIN,TOTAL 0.7 mg/dL (0.2-1.0); CALCIUM 7.5 mg/dL (8.5-10.1); CO2 30 mmol/L (21-32); GLUCOSE,RANDOM 85 mg/dL (74-106); SGOT/AST 12 U/L (15-37); SGPT/ALT 10 U/L (12-78); TOT PROT 4.8 g/dl (6.4-8.2)
[2017-04-11 08:41] LABS: ALK PHOS 99 U/L (45-117)
[2017-04-11 09:02] LABS: CREATININE 7.6 mg/dL (0.7-1.3)
[2017-04-11 09:09] LABS: INR 4.08 (0.82-1.09)
[2017-04-11] MEDS: SUCRALFATE 1 GM/10 ML UNIT DOSE CUPS PO SCH ×2 (11:14→23:06)
[2017-04-11] MEDS: CARVEDILOL 3.125 MG TABLET (FP) PO SCH ×2 (11:15→23:04)
[2017-04-11] MEDS: MIDODRINE HCL 5 MG TABLET PO SCH ×3 (11:15→17:28)
[2017-04-11] MEDS: QUEtiapine FUMARATE 25 MG TABLET (FP) PO SCH ×3 (11:15→23:06)
[2017-04-11] MEDS: RANITIDINE HCL 150 MG/10 ML UNIT-DOSE PO SCH (11:15)
[2017-04-11] MEDS: AMINO ACIDS/PROTEIN HYDROLYS 30 ML LIQUID.PKT PO SCH ×2 (11:16→17:29)
[2017-04-11] MEDS: GABAPENTIN 100 MG CAPSULE (FP) PO SCH ×2 (11:16→23:04)
[2017-04-11] MEDS: BUDESONIDE/FORMETEROL FUMARATE 80/4.5 mcg INHALER IH SCH ×2 (11:17→23:07)
[2017-04-11] MEDS: SILVER SULFADIAZINE 1% TOP CREAM 400 GM JAR TP SCH ×2 (11:17→23:08)
--- NOTE | 2017-04-11 11:23 | PN ---
Progress Note, Physician Chief Complaint: S/P SFA angioplasty and stent Post left BKA No new complaints, but in isolation for VREF History of Present Illness: Patient was seen and examined. Awake. Chart was reviewed Denies chest pain or SOB Not in distress Supratherapeutic INR -4.08 - Current Medication List Current Medications: Active Medications Acetaminophen (Tylenol -) 650 mg PO Q6H PRN PRN Reason: FEVER OR PAIN Last Admin: 04/10/17 17:51 Dose: 650 mg Amino Acids (Prosource No Carb Liquid Pkt) 30 ml PO BID@0800,1730 REPLACED BY [facility] Last Admin: 04/11/17 11:16 Dose: 30 ml Budesonide/Formoterol Fumarate (Symbicort 80/4.5mcg -) 2 puff IH BID REPLACED BY [facility] Last Admin: 04/11/17 11:17 Dose: 2 puff Carvedilol (Coreg -) 3.125 mg PO BID REPLACED BY [facility] Last Admin: 04/11/17 11:15 Dose: 3.125 mg Diphenhydramine HCl (Benadryl -) 25 mg PO Q6H PRN PRN Reason: FOR ITCHING Docusate Sodium (Colace -) 300 mg PO HS REPLACED BY [facility] Last Admin: 04/10/17 22:17 Dose: Not Given Gabapentin (Neurontin -) 100 mg PO BID REPLACED BY [facility] Last Admin: 04/11/17 11:16 Dose: 100 mg Haloperidol (Haldol Injection (Fast Acting) -) 2 mg IM Q4H PRN PRN Reason: AGITATION Last Admin: 04/06/17 11:50 Dose: 2 mg Piperacillin Sod/Tazobactam (Sod 2.25 gm/ Dextrose) 50 mls @ 100 mls/hr IVPB Q8H-IV REPLACED BY [facility] PRN Reason: Protocol Last Admin: 04/11/17 11:13 Dose: 100 mls/hr Daptomycin 250 mg/ Sodium (Chloride) 50 mls @ 50 mls/hr IVPB Q2D@1900 REPLACED BY [facility] PRN Reason: Protocol Last Admin: 04/10/17 22:18 Dose: 50 mls/hr Midodrine (Proamatine -) 10 mg PO TID-MID REPLACED BY [facility] Last Admin: 04/11/17 11:15 Dose: 10 mg Ondansetron HCl (Zofran Injection) 4 mg IVPUSH Q6H PRN PRN Reason: NAUSEA AND/OR VOMITING Quetiapine Fumarate (Seroquel -) 25 mg PO BID REPLACED BY [facility] Last Admin: 04/11/17 11:16 Dose: 25 mg Ranitidine HCl (Zantac Oral Solution -) 150 mg PO DAILY REPLACED BY [facility] Last Admin: 04/11/17 11:15 Dose: 150 mg Rosuvastatin Calcium (Crestor -) 5 mg PO HS REPLACED BY [facility] Last Admin: 04/10/17 22:00 Dose: Not Given Silver Sulfadiazine (Silvadene -) 1 applic TP BID REPLACED BY [facility] Last Admin: 04/11/17 11:17 Dose: 1 applic Sucralfate (Carafate Oral Suspension -) 0.5 gm PO BID REPLACED BY [facility] Last Admin: 04/11/17 11:14 Dose: 0.5 gm - Objective Vital Signs: Vital Signs Temperature 98.1 F 04/11/17 02:08 Pulse Rate 77 04/11/17 02:08 Respiratory Rate 18 04/11/17 02:08 Blood Pressure 91/49 04/11/17 02:08 O2 Sat by Pulse Oximetry (%) 98 04/10/17 21:00 Neck: Yes: Supple Cardiovascular: Yes: Regular Rate and Rhythm, S1, S2 Respiratory: Yes: Diminished Gastrointestinal: Yes: Normal Bowel Sounds, Soft. No: Tenderness Extremities: Yes: Amputation Edema: No Labs: CBC, BMP 04/11/17 06:30 04/11/17 06:30 INR, PTT INR 4.08 (0.82-1.09) H* 04/11/17 06:30 Fibrinogen 296.0 mg/dL (238-498) D 03/30/17 06:10 Problem List - Problems (1) Critical lower limb ischemia Code(s): I99.8 - OTHER DISORDER OF CIRCULATORY SYSTEM (2) HLD (hyperlipidemia) Code(s): E78.5 - HYPERLIPIDEMIA, UNSPECIFIED Qualifiers: Hyperlipidemia type: pure hypercholesterolemia Qualified Code(s): E78.00 - Pure hypercholesterolemia, unspecified (3) HTN (hypertension) Code(s): I10 - ESSENTIAL (PRIMARY) HYPERTENSION Qualifiers: Hypertension type: essential hypertension Qualified Code(s): I10 - Essential (primary) hypertension (4) ESRD (end stage renal disease) Code(s): N18.6 - END STAGE RENAL DISEASE (5) Anemia Code(s): D64.9 - ANEMIA, UNSPECIFIED (6) Atrial fibrillation Code(s): I48.91 - UNSPECIFIED ATRIAL FIBRILLATION Qualifiers: Atrial fibrillation type: persistent Qualified Code(s): I48.1 - Persistent atrial fibrillation (7) Amputated toe of left foot Code(s): Z89.422 - ACQUIRED ABSENCE OF OTHER LEFT TOE(S) (8) S/P AKA (above knee amputation) Code(s): Z89.619 - ACQUIRED ABSENCE OF UNSPECIFIED LEG ABOVE KNEE Qualifiers: Laterality: right Qualified Code(s): Z89.611 - Acquired absence of right leg above knee (9) Cardiomyopathy Code(s): I42.9 - CARDIOMYOPATHY, UNSPECIFIED Qualifiers: Cardiomyopathy type: unspecified Qualified Code(s): I42.9 - Cardiomyopathy , unspecified (10) Systolic dysfunction, left ventricle Code(s): I51.9 - HEART DISEASE, UNSPECIFIED Assessment/Plan 1. PAD post right AKA and left toe amputation, occluded left SFA post angioplasty/stent, post left BKA 2. CAD angina pectoris 3. Dilated cardiomyopathy with chronic class I-II NYHA classification LV systolic failure, compensated/ euvolemic 4. Persistent atrial fibrillation [id number] score of 4 - supratherapeutic INR 5. Severe TR with pulmonary HTN 6. HTN 7. ESRD on HD 8. History of DVT 9. Anemia 10. Thrombocytopenia 11. VREF PLAN: 1. Continue Coreg 2. Continue Crestor 3. HD as per renal service 4. Continue Coumadin per INR 2-3 - hold today and monitor INR 5. Supportive care. Antibiotic coverage 6. Continue Midodrine and monitor BP closely Further plans are to follow Elias Landrum MD
--- NOTE | 2017-04-11 11:47 | PN ---
Progress Note, Physician Chief Complaint: Infectious Disease f/u note: History of Present Illness: Pt is alert and responsive. Denies any acute distress. No new complaints. Tmax 99.9. - Current Medication List Current Medications: Active Medications Acetaminophen (Tylenol -) 650 mg PO Q6H PRN PRN Reason: FEVER OR PAIN Last Admin: 04/10/17 17:51 Dose: 650 mg Amino Acids (Prosource No Carb Liquid Pkt) 30 ml PO BID@0800,1730 ON LICENSE OF [facility] Last Admin: 04/11/17 11:16 Dose: 30 ml Budesonide/Formoterol Fumarate (Symbicort 80/4.5mcg -) 2 puff IH BID ON LICENSE OF [facility] Last Admin: 04/11/17 11:17 Dose: 2 puff Carvedilol (Coreg -) 3.125 mg PO BID ON LICENSE OF [facility] Last Admin: 04/11/17 11:15 Dose: 3.125 mg Diphenhydramine HCl (Benadryl -) 25 mg PO Q6H PRN PRN Reason: FOR ITCHING Docusate Sodium (Colace -) 300 mg PO HS ON LICENSE OF [facility] Last Admin: 04/10/17 22:17 Dose: Not Given Gabapentin (Neurontin -) 100 mg PO BID ON LICENSE OF [facility] Last Admin: 04/11/17 11:16 Dose: 100 mg Haloperidol (Haldol Injection (Fast Acting) -) 2 mg IM Q4H PRN PRN Reason: AGITATION Last Admin: 04/06/17 11:50 Dose: 2 mg Piperacillin Sod/Tazobactam (Sod 2.25 gm/ Dextrose) 50 mls @ 100 mls/hr IVPB Q8H-IV ON LICENSE OF [facility] PRN Reason: Protocol Last Admin: 04/11/17 11:13 Dose: 100 mls/hr Daptomycin 250 mg/ Sodium (Chloride) 50 mls @ 50 mls/hr IVPB Q2D@1900 ON LICENSE OF [facility] PRN Reason: Protocol Last Admin: 04/10/17 22:18 Dose: 50 mls/hr Midodrine (Proamatine -) 10 mg PO TID-MID ON LICENSE OF [facility] Last Admin: 04/11/17 11:15 Dose: 10 mg Ondansetron HCl (Zofran Injection) 4 mg IVPUSH Q6H PRN PRN Reason: NAUSEA AND/OR VOMITING Quetiapine Fumarate (Seroquel -) 25 mg PO BID ON LICENSE OF [facility] Last Admin: 04/11/17 11:16 Dose: 25 mg Ranitidine HCl (Zantac Oral Solution -) 150 mg PO DAILY ON LICENSE OF [facility] Last Admin: 04/11/17 11:15 Dose: 150 mg Rosuvastatin Calcium (Crestor -) 5 mg PO HS ON LICENSE OF [facility] Last Admin: 04/10/17 22:00 Dose: Not Given Silver Sulfadiazine (Silvadene -) 1 applic TP BID ON LICENSE OF [facility] Last Admin: 04/11/17 11:17 Dose: 1 applic Sucralfate (Carafate Oral Suspension -) 0.5 gm PO BID ON LICENSE OF [facility] Last Admin: 04/11/17 11:14 Dose: 0.5 gm - Objective Vital Signs: Vital Signs Temperature 98.1 F 04/11/17 02:08 Pulse Rate 77 04/11/17 02:08 Respiratory Rate 18 04/11/17 02:08 Blood Pressure 91/49 04/11/17 02:08 O2 Sat by Pulse Oximetry (%) 98 04/10/17 21:00 Constitutional: Yes: No Distress, Calm HENT: Yes: WNL Neck: Yes: Supple Cardiovascular: Yes: Regular Rate and Rhythm Respiratory: Yes: Regular Gastrointestinal: Yes: Normal Bowel Sounds, Soft Genitourinary: Yes: WNL Extremities: Yes: Amputation (Rt AKA site healed, Lt BKA site with wound, minimal purulent drainage, mild pain with palpation) Neurological: Yes: Alert Psychiatric: Yes: Alert Labs: CBC, BMP 04/11/17 06:30 04/11/17 06:30 INR, PTT INR 4.08 (0.82-1.09) H* 04/11/17 06:30 Fibrinogen 296.0 mg/dL (238-498) D 03/30/17 06:10 Laboratory Results - last 24 hr 04/10/17 04/10/17 04/11/17 11:12 11:12 06:30 WBC 6.9 RBC 4.28 Hgb 12.1 Hct 39.3 MCV 91.8 MCH 28.1 MCHC 30.7 L RDW 21.5 H Plt Count 84 L MPV 8.2 Neutrophils % 75.8 Lymphocytes % 9.2 D Monocytes % 9.9 Eosinophils % 2.6 Basophils % 2.5 H Manual Slide Review No Result Required. Platelet Comment Decrease Poikilocytosis 1+ Anisocytosis 1+ Tear Drop Cells Few PT with INR INR Sodium 144 Potassium 4.6 Chloride 104 Carbon Dioxide 30 Anion Gap 10 BUN 53 H Creatinine 6.9 H Creat Clearance w eGFR 7.82 Random Glucose 93 Calcium 7.5 L Total Bilirubin 0.4 D AST 15 ALT 9 L Alkaline Phosphatase 95 Creatine Kinase Total Protein 4.6 L Albumin 1.7 L 04/11/17 04/11/17 04/11/17 06:30 06:30 06:30 WBC RBC Hgb Hct MCV MCH MCHC RDW Plt Count MPV Neutrophils % Lymphocytes % Monocytes % Eosinophils % Basophils % Manual Slide Review Platelet Comment Poikilocytosis Anisocytosis Tear Drop Cells PT with INR 46.10 H INR 4.08 H* Sodium 143 Potassium 4.7 Chloride 103 Carbon Dioxide 30 Anion Gap 10 BUN 57 H Creatinine 7.6 H* Creat Clearance w eGFR 6.89 Random Glucose 85 Calcium 7.5 L Total Bilirubin 0.7 D AST 12 L ALT 10 L Alkaline Phosphatase 99 Creatine Kinase 30 L Total Protein 4.8 L Albumin 1.9 L Creatinine Kinase - 30 Problem List - Problems (1) Atrial fibrillation Code(s): I48.91 - UNSPECIFIED ATRIAL FIBRILLATION Qualifiers: Atrial fibrillation type: persistent Qualified Code(s): I48.1 - Persistent atrial fibrillation (2) Critical lower limb ischemia Code(s): I99.8 - OTHER DISORDER OF CIRCULATORY SYSTEM (3) HTN (hypertension) Code(s): I10 - ESSENTIAL (PRIMARY) HYPERTENSION Qualifiers: Hypertension type: essential hypertension Qualified Code(s): I10 - Essential (primary) hypertension (4) ESRD (end stage renal disease) Code(s): N18.6 - END STAGE RENAL DISEASE (5) HLD (hyperlipidemia) Code(s): E78.5 - HYPERLIPIDEMIA, UNSPECIFIED Qualifiers: Hyperlipidemia type: pure hypercholesterolemia Qualified Code(s): E78.00 - Pure hypercholesterolemia, unspecified (6) Liver disease, chronic, with cirrhosis Code(s): K74.60 - UNSPECIFIED CIRRHOSIS OF LIVER; K76.9 - LIVER DISEASE, UNSPECIFIED (7) Open wnd foot-complicated Code(s): S91.309A - UNSPECIFIED OPEN WOUND, UNSPECIFIED FOOT, INITIAL ENCOUNTER (8) Peripheral arterial disease Code(s): I73.9 - PERIPHERAL VASCULAR DISEASE, UNSPECIFIED (9) S/P AKA (above knee amputation) Code(s): Z89.619 - ACQUIRED ABSENCE OF UNSPECIFIED LEG ABOVE KNEE Qualifiers: Laterality: right Qualified Code(s): Z89.611 - Acquired absence of right leg above knee Assessment/Plan VRE Lt BKA wound infection Low grade fever - continue current antibiotics - monitor CK level as pt is on a statin and Daptomycin - monitor temperatures - continue wound care
--- NOTE | 2017-04-11 13:35 | PN ---
Physical Exam: SUBJECTIVE: Patient seen and examined at the bedside. Malay speaking only, states he feels well. OBJECTIVE: Low grade temp @ 99.9 Alert and oriented at baseline Vital Signs Period Temp Pulse Resp BP Sys/Coleman Pulse Ox Last 24 Hr 97.9 F-99.9 F 76-78 18-20 84-100/46-59 98 GENERAL: Awake and alert, in no acute distress HEAD: Normal with no signs of trauma. NECK: Normal range of motion, supple without lymphadenopathy, JVD, or masses. LUNGS: Breath sounds diminished bilaterall, no wheezing, +fine crackles on right mid lobe, oxygen stable on room air HEART: irregular heart rate, hx of afib ABDOMEN: Soft, nontender, not distended, normoactive bowel sounds, no guarding, no rebound, no masses. No hepatomegaly or splenomegaly. 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, on immobilizer, wound with drainage, minimal odor, wound cultures + VRE SKIN: Sacral stage II, present on admission, not viewed, changed by primary RN Laboratory Results - last 24 hr 04/11/17 04/11/17 04/11/17 06:30 06:30 06:30 WBC 6.9 RBC 4.28 Hgb 12.1 Hct 39.3 MCV 91.8 MCH 28.1 MCHC 30.7 L RDW 21.5 H Plt Count 84 L MPV 8.2 Neutrophils % 75.8 Lymphocytes % 9.2 D Monocytes % 9.9 Eosinophils % 2.6 Basophils % 2.5 H PT with INR 46.10 H INR 4.08 H* Sodium 143 Potassium 4.7 Chloride 103 Carbon Dioxide 30 Anion Gap 10 BUN 57 H Creatinine 7.6 H* Creat Clearance w eGFR 6.89 Random Glucose 85 Calcium 7.5 L Total Bilirubin 0.7 D AST 12 L ALT 10 L Alkaline Phosphatase 99 Creatine Kinase Total Protein 4.8 L Albumin 1.9 L 04/11/17 06:30 WBC RBC Hgb Hct MCV MCH MCHC RDW Plt Count MPV Neutrophils % Lymphocytes % Monocytes % Eosinophils % Basophils % PT with INR INR Sodium Potassium Chloride Carbon Dioxide Anion Gap BUN Creatinine Creat Clearance w eGFR Random Glucose Calcium Total Bilirubin AST ALT Alkaline Phosphatase Creatine Kinase 30 L Total Protein Albumin Active Medications Generic Name Dose Route Start Last Admin Trade Name Freq PRN Reason Stop Dose Admin Acetaminophen 650 mg 04/08/17 12:41 04/10/17 17:51 Tylenol - PO 650 mg Q6H PRN Administration FEVER OR PAIN Amino Acids 30 ml 04/02/17 11:00 04/11/17 11:16 Prosource No Carb Liquid Pkt PO 30 ml BID@0800,1730 [facility] Administration Budesonide/Formoterol Fumarate 2 puff 04/01/17 22:00 04/11/17 11:17 Symbicort 80/4.5mcg - IH 2 puff BID [facility] Administration Carvedilol 3.125 mg 04/01/17 22:00 04/11/17 11:15 Coreg - PO 3.125 mg BID [facility] Administration Diphenhydramine HCl 25 mg 04/01/17 17:31 Benadryl - PO Q6H PRN FOR ITCHING Docusate Sodium 300 mg 04/01/17 22:00 04/10/17 22:17 Colace - PO Not Given HS [facility] Gabapentin 100 mg 04/06/17 10:00 04/11/17 11:16 Neurontin - PO 100 mg BID [facility] Administration Haloperidol 2 mg 04/04/17 16:53 04/06/17 11:50 Haldol Injection (Fast Acting) - IM 2 mg Q4H PRN Administration AGITATION Piperacillin Sod/Tazobactam 50 mls @ 100 mls/hr 04/08/17 16:30 04/11/17 11:13 Sod 2.25 gm/ Dextrose IVPB 100 mls/hr Q8H-IV [facility] Administration Protocol Daptomycin 250 mg/ Sodium 50 mls @ 50 mls/hr 04/10/17 19:00 04/10/17 22:18 Chloride IVPB 50 mls/hr Q2D@1900 [facility] Administration Protocol Midodrine 10 mg 04/01/17 18:00 04/11/17 11:15 Proamatine - PO 10 mg TID-MID [facility] Administration Ondansetron HCl 4 mg 04/01/17 17:31 Zofran Injection IVPUSH Q6H PRN NAUSEA AND/OR VOMITING Quetiapine Fumarate 25 mg 04/02/17 10:50 04/11/17 11:16 Seroquel - PO 25 mg BID [facility] Administration Ranitidine HCl 150 mg 04/02/17 10:00 04/11/17 11:15 Zantac Oral Solution - PO 150 mg DAILY [facility] Administration Rosuvastatin Calcium 5 mg 04/01/17 22:00 04/10/17 22:00 Crestor - PO Not Given HS [facility] Silver Sulfadiazine 1 applic 04/06/17 13:45 04/11/17 11:17 Silvadene - TP 1 applic BID [facility] Administration Sucralfate 0.5 gm 04/01/17 22:00 04/11/17 11:14 Carafate Oral Suspension - PO 0.5 gm BID [facility] Administration ASSESSMENT/PLAN: Patient is a 77 year old male with a significant past medical history of ESRD HD (T,,), atrial fib, hypertension, DVT, right AKA, s/p left 2nd digit amputation lower extremity. He presented to the ED on 03/14/2017 for critical ischemia of left lower extremity. Patient is Malay speaking only and family reports having increased swelling to his left lower extremity. Pt comes with right AKA and a left middle toe amputation that was performed in [facility], where pt has been living for the past several years. Patient has medical records from [facility] in his file. Patient had a left BKA on 03/31/2017 for septic left foot/leg. Left BKA wound + VRE, now on Daptomycin as per ID. Vascular/ID: Sepsis secondary to ischemic Left foot, BKA on 04/01, resolved Vanco and Zosyn stopped on 04/04/2017 Had pus, drainage from left BKA wound: +VRE WBC stable, low grade fevers Started on Daptomycin (04/10> ), also on Zosyn as per ID Monitor vitals, fevers, reculture if continues to spike fevers Vascular consulted Hematology: Coagulopathy (prolonged PTT/PT) Thrombocytopenia, s/p platelet infusion on 04/01 Neuro: Acute Metabolic Encephalopathy likely secondary to septic left foot, improving S/P left BKA, see vascular note above. Renal: ESRD, HD (on TThS) via right upper arm fistula Next dialysis tomorrow Cardiology: Supra therapeutic INR for Atrial Fibrillation Coumadin on hold for now, INR in a.m. Hypertension, chronic but now with hypotension, parameters added to BP meds CAD Coreg 3.125mg BID, Crestor 5mg HS Psyche: Agitation, delirium Haldol, Seroquel 25mg BID Hematology: Anemia, likely chronic 2/2 to ESRD Monitor hmg/hct Heme following F.E.N. Fluids: 1.2 liter fluid restriction, tolerating PO Electrolytes: monitor Nutrition: renal diet Prophylaxis: GI: deferred DVT: supratherapeutic INR, hold coumadin again today, fall risk Disposition: Requires inpatient hospitalization. Full code. Visit type - Emergency Visit Emergency Visit: Yes ED Registration Date: 03/14/17 Care time: The patient presented to the Emergency Department on the above date and was hospitalized for further evaluation of their emergent condition. - New Patient This patient is new to me today: No - Critical Care Critical Care patient: No - Discharge Referral Referred to [facility] Med P.C.: No
[2017-04-11] MEDS: ACETAMINOPHEN 325 MG TABLET (FP) PO PRN ×3 (15:37→23:04)
[2017-04-11] MEDS ORDERED: PT OWN MED DRAWER 7, Y5N ONE (17:58)
--- NOTE | 2017-04-11 19:30 | PN ---
Progress Note (short form) - Note Progress Note: Vascular Surgery Pt seen and examined with family. Left bka site with some necrosis of suture line. flap looks viable. Pt on antibiotics for wound cx. WBC 6.9 Will watch stump for now. Betadine daily to stump to dry it out. Explained to family that if bka does not heal, will need aka. Faizan Villa DO
[2017-04-11] MEDS: DOCUSATE SODIUM 100 MG CAPSULE (FP) PO SCH (23:04)
[2017-04-12] MEDS: ROSUVASTATIN CA 5 MG TABLET (FP) PO SCH ×2 (00:02→21:19)
[2017-04-12] MEDS: PIPERACILLIN/TAZOB 2.25 GM 2.25 GM in DEXTROSE 5%-WATER - 50 ML IVPB SCH ×3 (02:10→18:30)
[2017-04-12] MEDS: AMINO ACIDS/PROTEIN HYDROLYS 30 ML LIQUID.PKT PO SCH ×2 (07:47→18:30)
[2017-04-12 08:23] LABS: BASOPHIL 2.2 % (0-2.0); EOSINOPHIL 3.4 % (0-4.5); MCH 28.3 pg (25.7-33.7); MEAN CELL VOLUME 91.3 fl (80-96); NEUTROPHILS 73.6 % (42.8-82.8); PLATELET COUNT 77 K/MM3 (134-434); WHITE BLOOD COUNT 5.8 K/mm3 (4.0-10.0)
[2017-04-12] MEDS ORDERED: PT OWN MED DRAWER 7, Y5N ONE (08:35)
[2017-04-12 08:55] LABS: INR 3.57 (0.82-1.09); PROTHROMBIN TIME (PATIENT) 40.3 SEC (9.98-11.88)
[2017-04-12 09:01] LABS: ALBUMIN 1.8 g/dl (3.4-5.0); ANION GAP 9 (8-16); BILIRUBIN,TOTAL 0.4 mg/dL (0.2-1.0); CALCIUM 7.6 mg/dL (8.5-10.1); CO2 31 mmol/L (21-32); GLUCOSE,RANDOM 89 mg/dL (74-106); SGOT/AST 11 U/L (15-37); SGPT/ALT 9 U/L (12-78); TOT PROT 4.7 g/dl (6.4-8.2)
[2017-04-12 09:07] LABS: ALK PHOS 103 U/L (45-117)
[2017-04-12 09:17] LABS: CREATININE 8.5 mg/dL (0.7-1.3)
[2017-04-12 09:40] LABS: MAGNESIUM 2.3 mg/dL (1.8-2.4)
[2017-04-12] MEDS: CARVEDILOL 3.125 MG TABLET (FP) PO SCH ×2 (10:15→21:18)
[2017-04-12] MEDS: MIDODRINE HCL 5 MG TABLET PO SCH ×3 (10:15→18:26)
[2017-04-12] MEDS: GABAPENTIN 100 MG CAPSULE (FP) PO SCH ×2 (10:15→21:19)
[2017-04-12] MEDS: SUCRALFATE 1 GM/10 ML UNIT DOSE CUPS PO SCH ×2 (10:15→21:18)
[2017-04-12] MEDS: QUEtiapine FUMARATE 25 MG TABLET (FP) PO SCH ×2 (10:16→21:19)
[2017-04-12] MEDS: SILVER SULFADIAZINE 1% TOP CREAM 400 GM JAR TP SCH ×2 (10:17→21:26)
[2017-04-12] MEDS: RANITIDINE HCL 150 MG/10 ML UNIT-DOSE PO SCH (10:28)
[2017-04-12] MEDS: BUDESONIDE/FORMETEROL FUMARATE 80/4.5 mcg INHALER IH SCH ×2 (10:31→21:26)
[2017-04-12] MEDS: oxyCODONE HCL 5 MG TABLET PO PRN ×2 (12:10→12:29)
[2017-04-12] MEDS ORDERED: VANCOMYCIN 1,000 MG in DEXTROSE 5%-WATER - 250 ML IVPB ONE (13:00)
[2017-04-12] MEDS ORDERED: EPOETIN ALFA 10,000 UNIT/1 ML VIAL IVPUSH ONE (13:00)
--- NOTE | 2017-04-12 13:57 | PN ---
Progress Note (short form) - Note Progress Note: Renal Follow up for ESRD on HD Pt seen and examined during dialysis awake and alert BF only 300 goal UF is 1.5L denies any acute pain, sob Vital Signs Temperature 97.8 F 04/12/17 10:00 Pulse Rate 79 04/12/17 12:10 Respiratory Rate 18 04/12/17 12:10 Blood Pressure 100/37 04/12/17 12:10 O2 Sat by Pulse Oximetry (%) 100 04/11/17 21:00 Intake & Output 04/09/17 04/10/17 04/11/17 04/12/17 23:59 23:59 23:59 23:59 Intake Total 547 666 2057 410 Balance 371 262 1338 410 Weight 55.593 kg 55.537 kg 55.066 kg 56.336 kg calm RRR CTA (anterior) Left leg in brace s/p amputation CBC, BMP 04/12/17 06:45 04/12/17 06:45 Current Medications Acetaminophen (Tylenol -) 650 mg PO Q6H PRN PRN Reason: FEVER OR PAIN Last Admin: 04/11/17 23:04 Dose: 650 mg Amino Acids (Prosource No Carb Liquid Pkt) 30 ml PO BID@0800,1730 [facility] Last Admin: 04/12/17 07:47 Dose: Not Given Budesonide/Formoterol Fumarate (Symbicort 80/4.5mcg -) 2 puff IH BID [facility] Last Admin: 04/12/17 10:31 Dose: Not Given Carvedilol (Coreg -) 3.125 mg PO BID [facility] Last Admin: 04/12/17 10:15 Dose: Not Given Diphenhydramine HCl (Benadryl -) 25 mg PO Q6H PRN PRN Reason: FOR ITCHING Docusate Sodium (Colace -) 300 mg PO HS [facility] Last Admin: 04/11/17 23:04 Dose: 300 mg Gabapentin (Neurontin -) 100 mg PO BID [facility] Last Admin: 04/12/17 10:15 Dose: Not Given Haloperidol (Haldol Injection (Fast Acting) -) 2 mg IM Q4H PRN PRN Reason: AGITATION Last Admin: 04/06/17 11:50 Dose: 2 mg Piperacillin Sod/Tazobactam (Sod 2.25 gm/ Dextrose) 50 mls @ 100 mls/hr IVPB Q8H-IV [facility] PRN Reason: Protocol Last Admin: 04/12/17 10:30 Dose: 100 mls/hr Daptomycin 250 mg/ Sodium (Chloride) 50 mls @ 50 mls/hr IVPB Q2D@1900 [facility] PRN Reason: Protocol Last Admin: 04/10/17 22:18 Dose: 50 mls/hr Vancomycin HCl 1,000 mg/ (Dextrose) 250 mls @ 250 mls/hr IVPB ONCE ONE PRN Reason: Protocol Stop: 04/12/17 13:59 Midodrine (Proamatine -) 10 mg PO TID-MID [facility] Last Admin: 04/12/17 10:15 Dose: Not Given Ondansetron HCl (Zofran Injection) 4 mg IVPUSH Q6H PRN PRN Reason: NAUSEA AND/OR VOMITING Oxycodone HCl (Roxicodone -) 5 mg PO Q4H PRN PRN Reason: PAIN Last Admin: 04/12/17 12:29 Dose: 5 mg Quetiapine Fumarate (Seroquel -) 25 mg PO BID [facility] Last Admin: 04/12/17 10:16 Dose: Not Given Ranitidine HCl (Zantac Oral Solution -) 150 mg PO DAILY [facility] Last Admin: 04/12/17 10:28 Dose: Not Given Rosuvastatin Calcium (Crestor -) 5 mg PO HS [facility] Last Admin: 04/12/17 00:02 Dose: 5 mg Silver Sulfadiazine (Silvadene -) 1 applic TP BID [facility] Last Admin: 04/12/17 10:17 Dose: Not Given Sucralfate (Carafate Oral Suspension -) 0.5 gm PO BID [facility] Last Admin: 04/12/17 10:15 Dose: Not Given 77 year old gentleman with PMhx of ESRD on HD (TTS), Hypertension, DVT, PVD s/p right AKA and left toe amputation who presented to the ED with complaints of pain in his left foot and admitted fro soft tissue infection of the foot with concern for worsening ischemic disease. #ESRD on HD tolerating dialysis well today Goal UF is 1.5L continue 3x weekly HD while inpatient #Wound/Ischemia of left LE s/p amputation vascular follow up may need additional surgery if not healing continue Abx #Acute on Chronic Anemia continue IVANIA with HD Thank you Raghu Boogie DO Problem List - Problems (1) Critical lower limb ischemia Code(s): I99.8 - OTHER DISORDER OF CIRCULATORY SYSTEM (2) Open wnd foot-complicated Code(s): S91.309A - UNSPECIFIED OPEN WOUND, UNSPECIFIED FOOT, INITIAL ENCOUNTER (3) HTN (hypertension) Code(s): I10 - ESSENTIAL (PRIMARY) HYPERTENSION Qualifiers: Hypertension type: essential hypertension Qualified Code(s): I10 - Essential (primary) hypertension (4) ESRD (end stage renal disease) Code(s): N18.6 - END STAGE RENAL DISEASE (5) Anemia Code(s): D64.9 - ANEMIA, UNSPECIFIED
--- NOTE | 2017-04-12 15:28 | PN ---
Physical Exam: SUBJECTIVE: Patient seen and examined in HD. He is complaining of pain of 10/10 to his leg. OBJECTIVE: Vital Signs Period Temp Pulse Resp BP Sys/Coleman Pulse Ox Last 24 Hr 96.9 F-97.8 F 58-93 17-18 85-109/37-65 100 PE Neuro: awake, confused, mumbles, disoriented Pulm: CTA anteriorly CV: s1 s2 irregular rate + 2/6 systolic murmur Abd: soft, nt, nd +bs Ext: R AKA amputation, left BKA with brace dressing cdi, R AVF + thrill + bruit Laboratory Results - last 24 hr 04/12/17 04/12/17 04/12/17 06:45 06:45 06:45 WBC 5.8 RBC 4.13 Hgb 11.7 Hct 37.7 MCV 91.3 MCH 28.3 MCHC 31.0 L RDW 21.0 H Plt Count 77 L MPV 8.0 Neutrophils % 73.6 Lymphocytes % 10.8 Monocytes % 10.0 Eosinophils % 3.4 Basophils % 2.2 H PT with INR 40.30 H INR 3.57 H Sodium Potassium Chloride Carbon Dioxide Anion Gap BUN Creatinine Creat Clearance w eGFR Random Glucose Calcium Phosphorus Magnesium Total Bilirubin AST ALT Alkaline Phosphatase Total Protein Albumin Random Vancomycin 8.883 04/12/17 06:45 WBC RBC Hgb Hct MCV MCH MCHC RDW Plt Count MPV Neutrophils % Lymphocytes % Monocytes % Eosinophils % Basophils % PT with INR INR Sodium 141 Potassium 4.7 Chloride 101 Carbon Dioxide 31 Anion Gap 9 BUN 72 H D Creatinine 8.5 H* Creat Clearance w eGFR 6.15 Random Glucose 89 Calcium 7.6 L Phosphorus 5.0 H D Magnesium 2.3 Total Bilirubin 0.4 D AST 11 L ALT 9 L Alkaline Phosphatase 103 Total Protein 4.7 L Albumin 1.8 L Random Vancomycin Active Medications Generic Name Dose Route Start Last Admin Trade Name Freq PRN Reason Stop Dose Admin Acetaminophen 650 mg 04/08/17 12:41 04/11/17 23:04 Tylenol - PO 650 mg Q6H PRN Administration FEVER OR PAIN Amino Acids 30 ml 04/02/17 11:00 04/12/17 07:47 Prosource No Carb Liquid Pkt PO Not Given BID@0800,1730 [facility] Budesonide/Formoterol Fumarate 2 puff 04/01/17 22:00 11/28/17 10:31 Symbicort 80/4.5mcg - IH Not Given BID [facility] Carvedilol 3.125 mg 04/01/17 22:00 04/12/17 10:15 Coreg - PO Not Given BID [facility] Diphenhydramine HCl 25 mg 04/01/17 17:31 Benadryl - PO Q6H PRN FOR ITCHING Docusate Sodium 300 mg 04/01/17 22:00 04/11/17 23:04 Colace - PO 300 mg HS [facility] Administration Gabapentin 100 mg 04/06/17 10:00 04/12/17 10:15 Neurontin - PO Not Given BID [facility] Haloperidol 2 mg 04/04/17 16:53 04/06/17 11:50 Haldol Injection (Fast Acting) - IM 2 mg Q4H PRN Administration AGITATION Piperacillin Sod/Tazobactam 50 mls @ 100 mls/hr 04/08/17 16:30 04/12/17 10:30 Sod 2.25 gm/ Dextrose IVPB 100 mls/hr Q8H-IV [facility] Administration Protocol Daptomycin 250 mg/ Sodium 50 mls @ 50 mls/hr 04/10/17 19:00 04/10/17 22:18 Chloride IVPB 50 mls/hr Q2D@1900 [facility] Administration Protocol Midodrine 10 mg 04/01/17 18:00 04/12/17 10:15 Proamatine - PO Not Given TID-MID [facility] Ondansetron HCl 4 mg 04/01/17 17:31 Zofran Injection IVPUSH Q6H PRN NAUSEA AND/OR VOMITING Oxycodone HCl 5 mg 04/12/17 11:36 04/12/17 12:29 Roxicodone - PO 5 mg Q4H PRN Administration PAIN Quetiapine Fumarate 25 mg 04/02/17 10:50 04/12/17 10:16 Seroquel - PO Not Given BID [facility] Ranitidine HCl 150 mg 04/02/17 10:00 04/12/17 10:28 Zantac Oral Solution - PO Not Given DAILY [facility] Rosuvastatin Calcium 5 mg 04/01/17 22:00 04/12/17 00:02 Crestor - PO 5 mg HS [facility] Administration Silver Sulfadiazine 1 applic 04/06/17 13:45 04/12/17 10:17 Silvadene - TP Not Given BID [facility] Sucralfate 0.5 gm 04/01/17 22:00 04/12/17 10:15 Carafate Oral Suspension - PO Not Given BID [facility] Assessment: 77 year old male with PMHX significant for ESRD HD (T,Th,S) HTN, DVT , PAD, vasculopathy s/p R AKA, s/p L SFA angioplasty and stent placement and 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 Plan: 1. Left SFA occlusion, left foot gangrene, severe sepsis - S/p BKA 04/01 - Necrosis on suture line, if abx dose not improve, will need AKA - Remains on Zosyn, dapto - Monitor CK 2. Hx of DVT - Hold Coumadin, supra therapeutic inr 3. Thrombocytopenia - Fluctuates - AC per INR 4. 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 ESRD - Continue HD as scheduled - Renal diet 6. A.fib, chronic - Continue Coumadin - Daily INR 7. AAA - F/u outpatient 8. Chronic anemia - Monitor Hgb - Continue to monitor 9. Prophylaxis: - On Coumadin, INR therapeutic Visit type - Emergency Visit Emergency Visit: Yes ED Registration Date: 03/14/17 Care time: The patient presented to the Emergency Department on the above date and was hospitalized for further evaluation of their emergent condition. - New Patient This patient is new to me today: No - Critical Care Critical Care patient: No
[2017-04-12] MEDS: DAPTOMYCIN 250 MG in SODIUM CHLORIDE 50 ML IVPB SCH (18:27)
--- NOTE | 2017-04-12 18:41 | PN ---
Progress Note, Physician Chief Complaint: S/P SFA angioplasty and stent Post left BKA Complains of intermittent pain History of Present Illness: Patient was seen and examined. Awake. Chart was reviewed Denies chest pain or SOB Intermittent pain INR 3.57 - Current Medication List Current Medications: Active Medications Acetaminophen (Tylenol -) 650 mg PO Q6H PRN PRN Reason: FEVER OR PAIN Last Admin: 04/11/17 23:04 Dose: 650 mg Amino Acids (Prosource No Carb Liquid Pkt) 30 ml PO BID@0800,1730 [facility] Last Admin: 04/12/17 18:30 Dose: 30 ml Budesonide/Formoterol Fumarate (Symbicort 80/4.5mcg -) 2 puff IH BID [facility] Last Admin: 04/12/17 10:31 Dose: Not Given Carvedilol (Coreg -) 3.125 mg PO BID [facility] Last Admin: 04/12/17 10:15 Dose: Not Given Diphenhydramine HCl (Benadryl -) 25 mg PO Q6H PRN PRN Reason: FOR ITCHING Docusate Sodium (Colace -) 300 mg PO HS [facility] Last Admin: 04/11/17 23:04 Dose: 300 mg Gabapentin (Neurontin -) 100 mg PO BID [facility] Last Admin: 04/12/17 10:15 Dose: Not Given Haloperidol (Haldol Injection (Fast Acting) -) 2 mg IM Q4H PRN PRN Reason: AGITATION Last Admin: 04/06/17 11:50 Dose: 2 mg Piperacillin Sod/Tazobactam (Sod 2.25 gm/ Dextrose) 50 mls @ 100 mls/hr IVPB Q8H-IV [facility] PRN Reason: Protocol Last Admin: 04/12/17 18:30 Dose: 100 mls/hr Daptomycin 250 mg/ Sodium (Chloride) 50 mls @ 50 mls/hr IVPB Q2D@1900 [facility] PRN Reason: Protocol Last Admin: 04/12/17 18:27 Dose: 50 mls/hr Midodrine (Proamatine -) 10 mg PO TID-MID [facility] Last Admin: 04/12/17 18:26 Dose: 10 mg Ondansetron HCl (Zofran Injection) 4 mg IVPUSH Q6H PRN PRN Reason: NAUSEA AND/OR VOMITING Oxycodone HCl (Roxicodone -) 5 mg PO Q4H PRN PRN Reason: PAIN Last Admin: 04/12/17 12:29 Dose: 5 mg Quetiapine Fumarate (Seroquel -) 25 mg PO BID [facility] Last Admin: 04/12/17 10:16 Dose: Not Given Ranitidine HCl (Zantac Oral Solution -) 150 mg PO DAILY [facility] Last Admin: 04/12/17 10:28 Dose: Not Given Rosuvastatin Calcium (Crestor -) 5 mg PO HS [facility] Last Admin: 04/12/17 00:02 Dose: 5 mg Silver Sulfadiazine (Silvadene -) 1 applic TP BID [facility] Last Admin: 04/12/17 10:17 Dose: Not Given Sucralfate (Carafate Oral Suspension -) 0.5 gm PO BID [facility] Last Admin: 04/12/17 10:15 Dose: Not Given - Objective Vital Signs: Vital Signs Temperature 97.8 F 04/12/17 10:00 Pulse Rate 87 04/12/17 15:00 Respiratory Rate 18 04/12/17 15:00 Blood Pressure 99/57 04/12/17 15:00 O2 Sat by Pulse Oximetry (%) 100 04/11/17 21:00 Cardiovascular: Yes: Regular Rate and Rhythm, Murmur (SM), S1, S2 Respiratory: Yes: Diminished Gastrointestinal: Yes: Normal Bowel Sounds, Soft. No: Tenderness Extremities: Yes: Amputation Edema: No Labs: CBC, BMP 04/12/17 06:45 04/12/17 06:45 INR, PTT INR 3.57 (0.82-1.09) H 04/12/17 06:45 Fibrinogen 296.0 mg/dL (238-498) D 03/30/17 06:10 Problem List - Problems (1) Critical lower limb ischemia Code(s): I99.8 - OTHER DISORDER OF CIRCULATORY SYSTEM (2) HLD (hyperlipidemia) Code(s): E78.5 - HYPERLIPIDEMIA, UNSPECIFIED Qualifiers: Hyperlipidemia type: pure hypercholesterolemia Qualified Code(s): E78.00 - Pure hypercholesterolemia, unspecified (3) HTN (hypertension) Code(s): I10 - ESSENTIAL (PRIMARY) HYPERTENSION Qualifiers: Hypertension type: essential hypertension Qualified Code(s): I10 - Essential (primary) hypertension (4) ESRD (end stage renal disease) Code(s): N18.6 - END STAGE RENAL DISEASE (5) Anemia Code(s): D64.9 - ANEMIA, UNSPECIFIED (6) Atrial fibrillation Code(s): I48.91 - UNSPECIFIED ATRIAL FIBRILLATION Qualifiers: Atrial fibrillation type: persistent Qualified Code(s): I48.1 - Persistent atrial fibrillation (7) Amputated toe of left foot Code(s): Z89.422 - ACQUIRED ABSENCE OF OTHER LEFT TOE(S) (8) S/P AKA (above knee amputation) Code(s): Z89.619 - ACQUIRED ABSENCE OF UNSPECIFIED LEG ABOVE KNEE Qualifiers: Laterality: right Qualified Code(s): Z89.611 - Acquired absence of right leg above knee (9) Cardiomyopathy Code(s): I42.9 - CARDIOMYOPATHY, UNSPECIFIED Qualifiers: Cardiomyopathy type: unspecified Qualified Code(s): I42.9 - Cardiomyopathy , unspecified (10) Systolic dysfunction, left ventricle Code(s): I51.9 - HEART DISEASE, UNSPECIFIED Assessment/Plan 1. PAD post right AKA and left toe amputation, occluded left SFA post angioplasty/stent, post left BKA 2. CAD angina pectoris 3. Dilated cardiomyopathy with chronic class I-II NYHA classification LV systolic failure, compensated/ euvolemic 4. Persistent atrial fibrillation [id number] score of 4 - supratherapeutic INR 5. Severe TR with pulmonary HTN 6. HTN 7. ESRD on HD 8. History of DVT 9. Anemia 10. Thrombocytopenia 11. VREF PLAN: 1. Continue Coreg 2. Continue Crestor 3. HD as per renal service 4. Continue Coumadin per INR 2-3 5. Supportive care. Antibiotic coverage. Vascular follow up and if he has poor healing post BKA, he may need AKA 6. Continue Midodrine and monitor BP closely Further plans are to follow Elias Landrum MD
[2017-04-12] MEDS: DOCUSATE SODIUM 100 MG CAPSULE (FP) PO SCH (21:18)
[2017-04-13] MEDS: PIPERACILLIN/TAZOB 2.25 GM 2.25 GM in DEXTROSE 5%-WATER - 50 ML IVPB SCH ×3 (02:05→18:59)
[2017-04-13] MEDS ORDERED: PT OWN MED DRAWER 7, Y5N ONE ×2 (08:42→17:45)
[2017-04-13] MEDS: AMINO ACIDS/PROTEIN HYDROLYS 30 ML LIQUID.PKT PO SCH ×2 (08:46→18:15)
[2017-04-13 09:05] LABS: BASOPHIL 3.9 % (0-2.0); EOSINOPHIL 2.8 % (0-4.5); MCH 28.1 pg (25.7-33.7); MCHC 31.4 g/dl (32.0-35.9); MEAN CELL VOLUME 89.6 fl (80-96); MEAN PLT VOLUME 8.1 fl (7.5-11.1); NEUTROPHILS 74.8 % (42.8-82.8); PLATELET COUNT 67 K/MM3 (134-434); RDW 20.8 % (11.9-15.9); WHITE BLOOD COUNT 5.1 K/mm3 (4.0-10.0)
[2017-04-13 09:50] LABS: ANION GAP 8 (8-16); CALCIUM 7.7 mg/dL (8.5-10.1); CO2 31 mmol/L (21-32); GLUCOSE,RANDOM 87 mg/dL (74-106)
[2017-04-13] MEDS: RANITIDINE HCL 150 MG/10 ML UNIT-DOSE PO SCH (11:08)
[2017-04-13] MEDS: GABAPENTIN 100 MG CAPSULE (FP) PO SCH ×2 (11:09→23:05)
[2017-04-13] MEDS: MIDODRINE HCL 5 MG TABLET PO SCH ×3 (11:09→18:16)
[2017-04-13] MEDS: SUCRALFATE 1 GM/10 ML UNIT DOSE CUPS PO SCH ×2 (11:09→23:05)
[2017-04-13] MEDS: QUEtiapine FUMARATE 25 MG TABLET (FP) PO SCH ×2 (11:10→23:05)
[2017-04-13] MEDS: CARVEDILOL 3.125 MG TABLET (FP) PO SCH ×2 (11:10→23:05)
--- NOTE | 2017-04-13 11:47 | PN ---
Progress Note (short form) - Note Progress Note: Renal Follow up for ESRD on HD Pt seen and examined at the bedside is awake and alert reports pain in left leg no sob, chest pain, fever, chills s/p dialysis yesterday Vital Signs Temperature 97.8 F 04/13/17 06:00 Pulse Rate 73 04/13/17 06:00 Respiratory Rate 18 04/13/17 06:00 Blood Pressure 93/53 04/13/17 06:00 O2 Sat by Pulse Oximetry (%) 100 04/11/17 21:00 Intake & Output 04/10/17 04/11/17 04/12/17 04/13/17 23:59 23:59 23:59 23:59 Intake Total 890 1170 660 Balance 890 1170 660 Weight 55.537 kg 55.066 kg 56.336 kg 57.47 kg calm, NAD RRR CTA (anterior) Left leg in brace s/p amputation CBC, BMP 04/13/17 08:45 04/13/17 08:45 Current Medications Acetaminophen (Tylenol -) 650 mg PO Q6H PRN PRN Reason: FEVER OR PAIN Last Admin: 04/11/17 23:04 Dose: 650 mg Amino Acids (Prosource No Carb Liquid Pkt) 30 ml PO BID@0800,1730 [facility] Last Admin: 04/13/17 08:46 Dose: 30 ml Budesonide/Formoterol Fumarate (Symbicort 80/4.5mcg -) 2 puff IH BID [facility] Last Admin: 04/12/17 21:26 Dose: 2 puff Carvedilol (Coreg -) 3.125 mg PO BID [facility] Last Admin: 04/13/17 11:10 Dose: 3.125 mg Diphenhydramine HCl (Benadryl -) 25 mg PO Q6H PRN PRN Reason: FOR ITCHING Docusate Sodium (Colace -) 300 mg PO HS [facility] Last Admin: 04/12/17 21:18 Dose: 300 mg Gabapentin (Neurontin -) 100 mg PO BID [facility] Last Admin: 04/13/17 11:09 Dose: 100 mg Haloperidol (Haldol Injection (Fast Acting) -) 2 mg IM Q4H PRN PRN Reason: AGITATION Last Admin: 04/06/17 11:50 Dose: 2 mg Piperacillin Sod/Tazobactam (Sod 2.25 gm/ Dextrose) 50 mls @ 100 mls/hr IVPB Q8H-IV [facility] PRN Reason: Protocol Last Admin: 04/13/17 02:05 Dose: 100 mls/hr Daptomycin 250 mg/ Sodium (Chloride) 50 mls @ 50 mls/hr IVPB Q2D@1900 [facility] PRN Reason: Protocol Last Admin: 04/12/17 18:27 Dose: 50 mls/hr Midodrine (Proamatine -) 10 mg PO TID-MID [facility] Last Admin: 04/13/17 11:09 Dose: 10 mg Ondansetron HCl (Zofran Injection) 4 mg IVPUSH Q6H PRN PRN Reason: NAUSEA AND/OR VOMITING Oxycodone HCl (Roxicodone -) 5 mg PO Q4H PRN PRN Reason: PAIN Last Admin: 04/12/17 12:29 Dose: 5 mg Quetiapine Fumarate (Seroquel -) 25 mg PO BID [facility] Last Admin: 04/13/17 11:10 Dose: 25 mg Ranitidine HCl (Zantac Oral Solution -) 150 mg PO DAILY [facility] Last Admin: 04/13/17 11:08 Dose: 150 mg Rosuvastatin Calcium (Crestor -) 5 mg PO HS [facility] Last Admin: 04/12/17 21:19 Dose: 5 mg Silver Sulfadiazine (Silvadene -) 1 applic TP BID [facility] Last Admin: 04/12/17 21:26 Dose: Not Given Sucralfate (Carafate Oral Suspension -) 0.5 gm PO BID [facility] Last Admin: 04/13/17 11:09 Dose: 0.5 gm 77 year old gentleman with PMhx of ESRD on HD (TTS), Hypertension, DVT, PVD s/p right AKA and left toe amputation who presented to the ED with complaints of pain in his left foot and admitted fro soft tissue infection of the foot with concern for worsening ischemic disease. #ESRD on HD s/p dialysis yesterday, no acute indication for ACTIVE DIRECTORY ARCHITECT today Renal Diet Fluid restriction of 1.2 L daily #Wound/Ischemia of left LE s/p amputation but appears as if wound is not healing well continue Dapto and zosyn as per ID #Acute on Chronic Anemia continue IVANIA with HD no indication for transfusion at this time #Hypocalcemia corrected Ca is WNL Phos is at gaol PTH is acceptable for ESRD Thank you Raghu Boogie DO Problem List - Problems (1) Critical lower limb ischemia Code(s): I99.8 - OTHER DISORDER OF CIRCULATORY SYSTEM (2) Open wnd foot-complicated Code(s): S91.309A - UNSPECIFIED OPEN WOUND, UNSPECIFIED FOOT, INITIAL ENCOUNTER (3) HTN (hypertension) Code(s): I10 - ESSENTIAL (PRIMARY) HYPERTENSION Qualifiers: Hypertension type: essential hypertension Qualified Code(s): I10 - Essential (primary) hypertension (4) ESRD (end stage renal disease) Code(s): N18.6 - END STAGE RENAL DISEASE (5) Anemia Code(s): D64.9 - ANEMIA, UNSPECIFIED
--- NOTE | 2017-04-13 12:01 | PN ---
Physical Exam: SUBJECTIVE: Patient seen and examined. He says his gown is too tight and his knee hurts. OBJECTIVE: Vital Signs Period Temp Pulse Resp BP Sys/Coleman Pulse Ox Last 24 Hr 97.6 F-97.8 F 58-93 18-18 86-105/37-78 PE Neuro: awake, confused at times Pulm: CTA anteriorly CV: s1 s2 irregular rate + 2/6 systolic murmur Abd: soft, nt, nd +bs Ext: R AKA amputation, R AVF, left BKA lateral stump with necrosis, eliezer in tact, area draining, no odor, appears soft/wet Laboratory Results - last 24 hr 04/12/17 04/13/17 04/13/17 13:00 08:45 08:45 WBC 5.1 RBC 3.84 L Hgb 10.8 L Hct 34.4 L MCV 89.6 MCH 28.1 MCHC 31.4 L RDW 20.8 H Plt Count 67 L MPV 8.1 Neutrophils % 74.8 Lymphocytes % 9.7 Monocytes % 8.8 Eosinophils % 2.8 Basophils % 3.9 H Sodium 140 Potassium 4.8 Chloride 101 Carbon Dioxide 31 Anion Gap 8 BUN 67 H Creatinine 8.0 H* Random Glucose 87 Calcium 7.7 L Hepatitis C Antibody <0.1 Active Medications Generic Name Dose Route Start Last Admin Trade Name Freq PRN Reason Stop Dose Admin Acetaminophen 650 mg 04/08/17 12:41 04/11/17 23:04 Tylenol - PO 650 mg Q6H PRN Administration FEVER OR PAIN Amino Acids 30 ml 04/02/17 11:00 04/13/17 08:46 Prosource No Carb Liquid Pkt PO 30 ml BID@0800,1730 [facility] Administration Budesonide/Formoterol Fumarate 2 puff 04/01/17 22:00 04/12/17 21:26 Symbicort 80/4.5mcg - IH 2 puff BID [facility] Administration Carvedilol 3.125 mg 04/01/17 22:00 04/13/17 11:10 Coreg - PO 3.125 mg BID [facility] Administration Diphenhydramine HCl 25 mg 04/01/17 17:31 Benadryl - PO Q6H PRN FOR ITCHING Docusate Sodium 300 mg 04/01/17 22:00 04/12/17 21:18 Colace - PO 300 mg HS [facility] Administration Epoetin Nash 6,000 units 04/14/17 06:00 Epogen - IVPUSH 04/14/17 06:01 ONCE ONE Gabapentin 100 mg 04/06/17 10:00 04/13/17 11:09 Neurontin - PO 100 mg BID [facility] Administration Haloperidol 2 mg 04/04/17 16:53 04/06/17 11:50 Haldol Injection (Fast Acting) - IM 2 mg Q4H PRN Administration AGITATION Piperacillin Sod/Tazobactam 50 mls @ 100 mls/hr 04/08/17 16:30 04/13/17 02:05 Sod 2.25 gm/ Dextrose IVPB 100 mls/hr Q8H-IV [facility] Administration Protocol Daptomycin 250 mg/ Sodium 50 mls @ 50 mls/hr 04/10/17 19:00 04/12/17 18:27 Chloride IVPB 50 mls/hr Q2D@1900 [facility] Administration Protocol Midodrine 10 mg 04/01/17 18:00 04/13/17 11:09 Proamatine - PO 10 mg TID-MID [facility] Administration Ondansetron HCl 4 mg 04/01/17 17:31 Zofran Injection IVPUSH Q6H PRN NAUSEA AND/OR VOMITING Oxycodone HCl 5 mg 04/12/17 11:36 04/12/17 12:29 Roxicodone - PO 5 mg Q4H PRN Administration PAIN Quetiapine Fumarate 25 mg 04/02/17 10:50 04/13/17 11:10 Seroquel - PO 25 mg BID [facility] Administration Ranitidine HCl 150 mg 04/02/17 10:00 04/13/17 11:08 Zantac Oral Solution - PO 150 mg DAILY [facility] Administration Rosuvastatin Calcium 5 mg 04/01/17 22:00 04/12/17 21:19 Crestor - PO 5 mg HS [facility] Administration Silver Sulfadiazine 1 applic 04/06/17 13:45 04/12/17 21:26 Silvadene - TP Not Given BID [facility] Sucralfate 0.5 gm 04/01/17 22:00 04/13/17 11:09 Carafate Oral Suspension - PO 0.5 gm BID [facility] Administration Assessment: 77 year old male with PMHX significant for ESRD HD (T,Th,S) HTN, DVT , PAD, vasculopathy s/p R AKA, s/p L SFA angioplasty and stent placement and 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 Plan: 1. Left SFA occlusion, left foot gangrene, severe sepsis - S/p BKA 04/01 - Necrosis on suture line, wound dose not appear to be fusing, drainage continues - Will d/w Vascular, may need AKA - Remains on Zosyn, dapto per ID - Monitor CK 2. Hx of DVT - INR pending - Dose coumadin for goal INR 2-3 3. Thrombocytopenia - Down trended today, possible due to meds? - AC per INR 4. Acute metabolic encephalopathy - Unchanged, moments of confusion 5. ESRD - Continue HD as scheduled - Renal diet 6. A.fib, chronic - On Coumadin 7. AAA - F/u outpatient 8. Chronic anemia - Monitor Hgb - Continue to monitor 9. Prophylaxis: - On Coumadin, INR therapeutic Visit type - Emergency Visit Emergency Visit: Yes ED Registration Date: 03/14/17 Care time: The patient presented to the Emergency Department on the above date and was hospitalized for further evaluation of their emergent condition. - New Patient This patient is new to me today: No - Critical Care Critical Care patient: No
[2017-04-13] MEDS: BUDESONIDE/FORMETEROL FUMARATE 80/4.5 mcg INHALER IH SCH ×2 (12:38→23:17)
[2017-04-13] MEDS: SILVER SULFADIAZINE 1% TOP CREAM 400 GM JAR TP SCH ×2 (12:38→22:51)
[2017-04-13] MEDS: oxyCODONE HCL 5 MG TABLET PO PRN (12:41)
--- NOTE | 2017-04-13 13:35 | PN ---
Progress Note, Physician History of Present Illness: Sensorium improved, more interactive. - Current Medication List Current Medications: Active Medications Acetaminophen (Tylenol -) 650 mg PO Q6H PRN PRN Reason: FEVER OR PAIN Last Admin: 04/11/17 23:04 Dose: 650 mg Amino Acids (Prosource No Carb Liquid Pkt) 30 ml PO BID@0800,1730 [facility] Last Admin: 04/13/17 08:46 Dose: 30 ml Budesonide/Formoterol Fumarate (Symbicort 80/4.5mcg -) 2 puff IH BID [facility] Last Admin: 04/13/17 12:38 Dose: 2 puff Carvedilol (Coreg -) 3.125 mg PO BID [facility] Last Admin: 04/13/17 11:10 Dose: 3.125 mg Diphenhydramine HCl (Benadryl -) 25 mg PO Q6H PRN PRN Reason: FOR ITCHING Docusate Sodium (Colace -) 300 mg PO HS [facility] Last Admin: 04/12/17 21:18 Dose: 300 mg Epoetin Nash (Procrit -) 6,000 unit IVPUSH ONCE ONE Stop: 04/14/17 06:01 Gabapentin (Neurontin -) 100 mg PO BID [facility] Last Admin: 04/13/17 11:09 Dose: 100 mg Haloperidol (Haldol Injection (Fast Acting) -) 2 mg IM Q4H PRN PRN Reason: AGITATION Last Admin: 04/06/17 11:50 Dose: 2 mg Piperacillin Sod/Tazobactam (Sod 2.25 gm/ Dextrose) 50 mls @ 100 mls/hr IVPB Q8H-IV [facility] PRN Reason: Protocol Last Admin: 04/13/17 12:37 Dose: 100 mls/hr Daptomycin 250 mg/ Sodium (Chloride) 50 mls @ 50 mls/hr IVPB Q2D@1900 [facility] PRN Reason: Protocol Last Admin: 04/12/17 18:27 Dose: 50 mls/hr Midodrine (Proamatine -) 10 mg PO TID-MID [facility] Last Admin: 04/13/17 11:09 Dose: 10 mg Ondansetron HCl (Zofran Injection) 4 mg IVPUSH Q6H PRN PRN Reason: NAUSEA AND/OR VOMITING Oxycodone HCl (Roxicodone -) 5 mg PO Q4H PRN PRN Reason: PAIN Last Admin: 04/13/17 12:41 Dose: 5 mg Quetiapine Fumarate (Seroquel -) 25 mg PO BID [facility] Last Admin: 04/13/17 11:10 Dose: 25 mg Ranitidine HCl (Zantac Oral Solution -) 150 mg PO DAILY [facility] Last Admin: 04/13/17 11:08 Dose: 150 mg Rosuvastatin Calcium (Crestor -) 5 mg PO HS [facility] Last Admin: 04/12/17 21:19 Dose: 5 mg Silver Sulfadiazine (Silvadene -) 1 applic TP BID [facility] Last Admin: 04/13/17 12:38 Dose: 1 applic Sucralfate (Carafate Oral Suspension -) 0.5 gm PO BID [facility] Last Admin: 04/13/17 11:09 Dose: 0.5 gm - Objective Vital Signs: Vital Signs Temperature 97.8 F 04/13/17 06:00 Pulse Rate 73 04/13/17 06:00 Respiratory Rate 18 04/13/17 06:00 Blood Pressure 93/53 04/13/17 06:00 O2 Sat by Pulse Oximetry (%) 100 04/11/17 21:00 Constitutional: Yes: No Distress, Calm Neck: Yes: Supple Cardiovascular: Yes: Regular Rate and Rhythm Respiratory: Yes: Regular, Diminished Gastrointestinal: Yes: Normal Bowel Sounds, Soft Extremities: Yes: Amputation Edema: No Labs: CBC, BMP 04/13/17 08:45 04/13/17 08:45 INR, PTT INR 3.57 (0.82-1.09) H 04/12/17 06:45 Fibrinogen 296.0 mg/dL (238-498) D 03/30/17 06:10 Problem List - Problems (1) Critical lower limb ischemia Code(s): I99.8 - OTHER DISORDER OF CIRCULATORY SYSTEM (2) HLD (hyperlipidemia) Code(s): E78.5 - HYPERLIPIDEMIA, UNSPECIFIED Qualifiers: Hyperlipidemia type: pure hypercholesterolemia Qualified Code(s): E78.00 - Pure hypercholesterolemia, unspecified (3) HTN (hypertension) Code(s): I10 - ESSENTIAL (PRIMARY) HYPERTENSION Qualifiers: Hypertension type: essential hypertension Qualified Code(s): I10 - Essential (primary) hypertension (4) ESRD (end stage renal disease) Code(s): N18.6 - END STAGE RENAL DISEASE (5) Atrial fibrillation Code(s): I48.91 - UNSPECIFIED ATRIAL FIBRILLATION Qualifiers: Atrial fibrillation type: persistent Qualified Code(s): I48.1 - Persistent atrial fibrillation (6) Amputated toe of left foot Code(s): Z89.422 - ACQUIRED ABSENCE OF OTHER LEFT TOE(S) (7) S/P AKA (above knee amputation) Code(s): Z89.619 - ACQUIRED ABSENCE OF UNSPECIFIED LEG ABOVE KNEE Qualifiers: Laterality: right Qualified Code(s): Z89.611 - Acquired absence of right leg above knee (8) Cardiomyopathy Code(s): I42.9 - CARDIOMYOPATHY, UNSPECIFIED Qualifiers: Cardiomyopathy type: unspecified Qualified Code(s): I42.9 - Cardiomyopathy , unspecified (9) Systolic dysfunction, left ventricle Code(s): I51.9 - HEART DISEASE, UNSPECIFIED (10) Anticoagulant long-term use Code(s): Z79.01 - PRODUCT INSPECTION COORDINATOR (CURRENT) USE OF ANTICOAGULANTS (11) Thrombocytopenia Code(s): D69.6 - THROMBOCYTOPENIA, UNSPECIFIED (12) Peripheral arterial disease Code(s): I73.9 - PERIPHERAL VASCULAR DISEASE, UNSPECIFIED Assessment/Plan 1. PAD post right AKA and left toe amputation, occluded left SFA post angioplasty/stent, post left BKA 2. CAD angina pectoris 3. Dilated cardiomyopathy with chronic class I-II NYHA classification LV systolic failure, compensated/ euvolemic 4. Persistent atrial fibrillation [id number] score of 4 - supratherapeutic INR 5. Severe TR with pulmonary HTN 6. HTN 7. ESRD on HD 8. History of DVT 9. Anemia 10. Thrombocytopenia 11. VREF PLAN: 1. Continue Coreg 3.125 bid 2. Continue Crestor 5 qhs 3. HD as per renal service 4. Continue Coumadin per INR 2-3 5. Supportive care. Complete antibiotic course. Vascular follow up and if he has poor healing post BKA, he may need AKA 6. Continue Midodrine and monitor BP closely
[2017-04-13 14:07] LABS: INR 2.87 (0.82-1.09); PROTHROMBIN TIME (PATIENT) 32.4 SEC (9.98-11.88)
[2017-04-13] MEDS: WARFARIN NA 3 MG TABLET PO SCH (18:15)
--- NOTE | 2017-04-13 18:29 | PN ---
Progress Note, Physician Chief Complaint: Infectious Disease f/u: - Current Medication List Current Medications: Active Medications Acetaminophen (Tylenol -) 650 mg PO Q6H PRN PRN Reason: FEVER OR PAIN Last Admin: 04/11/17 23:04 Dose: 650 mg Amino Acids (Prosource No Carb Liquid Pkt) 30 ml PO BID@0800,1730 [facility] Last Admin: 04/13/17 18:15 Dose: 30 ml Budesonide/Formoterol Fumarate (Symbicort 80/4.5mcg -) 2 puff IH BID [facility] Last Admin: 04/13/17 12:38 Dose: 2 puff Carvedilol (Coreg -) 3.125 mg PO BID [facility] Last Admin: 04/13/17 11:10 Dose: 3.125 mg Diphenhydramine HCl (Benadryl -) 25 mg PO Q6H PRN PRN Reason: FOR ITCHING Docusate Sodium (Colace -) 300 mg PO HS [facility] Last Admin: 04/12/17 21:18 Dose: 300 mg Epoetin Nash (Procrit -) 6,000 unit IVPUSH ONCE ONE Stop: 04/14/17 06:01 Gabapentin (Neurontin -) 100 mg PO BID [facility] Last Admin: 04/13/17 11:09 Dose: 100 mg Haloperidol (Haldol Injection (Fast Acting) -) 2 mg IM Q4H PRN PRN Reason: AGITATION Last Admin: 04/06/17 11:50 Dose: 2 mg Piperacillin Sod/Tazobactam (Sod 2.25 gm/ Dextrose) 50 mls @ 100 mls/hr IVPB Q8H-IV [facility] PRN Reason: Protocol Last Admin: 04/13/17 12:37 Dose: 100 mls/hr Daptomycin 250 mg/ Sodium (Chloride) 50 mls @ 50 mls/hr IVPB Q2D@1900 [facility] PRN Reason: Protocol Last Admin: 04/12/17 18:27 Dose: 50 mls/hr Midodrine (Proamatine -) 10 mg PO TID-MID [facility] Last Admin: 04/13/17 18:16 Dose: 10 mg Ondansetron HCl (Zofran Injection) 4 mg IVPUSH Q6H PRN PRN Reason: NAUSEA AND/OR VOMITING Oxycodone HCl (Roxicodone -) 5 mg PO Q4H PRN PRN Reason: PAIN Last Admin: 04/13/17 12:41 Dose: 5 mg Quetiapine Fumarate (Seroquel -) 25 mg PO BID [facility] Last Admin: 04/13/17 11:10 Dose: 25 mg Ranitidine HCl (Zantac Oral Solution -) 150 mg PO DAILY [facility] Last Admin: 04/13/17 11:08 Dose: 150 mg Rosuvastatin Calcium (Crestor -) 5 mg PO HS [facility] Last Admin: 04/12/17 21:19 Dose: 5 mg Silver Sulfadiazine (Silvadene -) 1 applic TP BID [facility] Last Admin: 04/13/17 12:38 Dose: 1 applic Sucralfate (Carafate Oral Suspension -) 0.5 gm PO BID [facility] Last Admin: 04/13/17 11:09 Dose: 0.5 gm Warfarin Sodium (Coumadin -) 3 mg PO DAILY@1800 [facility] Last Admin: 04/13/17 18:15 Dose: 3 mg - Objective Vital Signs: Vital Signs Temperature 97.9 F 04/13/17 13:54 Pulse Rate 70 04/13/17 13:54 Respiratory Rate 16 04/13/17 13:54 Blood Pressure 117/84 04/13/17 13:54 O2 Sat by Pulse Oximetry (%) 100 04/11/17 21:00 Constitutional: Yes: No Distress, Calm Neck: Yes: Supple Cardiovascular: Yes: Regular Rate and Rhythm Respiratory: Yes: Regular Gastrointestinal: Yes: Normal Bowel Sounds, Soft Extremities: Yes: Amputation (Lt BKA) Wound/Incision: Yes: Dressing Dry and Intact Labs: CBC, BMP 04/13/17 08:45 04/13/17 08:45 INR, PTT INR 2.87 (0.82-1.09) H 04/13/17 13:46 Fibrinogen 296.0 mg/dL (238-498) D 03/30/17 06:10 CPK - 30 Problem List - Problems (1) Atrial fibrillation Code(s): I48.91 - UNSPECIFIED ATRIAL FIBRILLATION Qualifiers: Atrial fibrillation type: persistent Qualified Code(s): I48.1 - Persistent atrial fibrillation (2) Critical lower limb ischemia Code(s): I99.8 - OTHER DISORDER OF CIRCULATORY SYSTEM (3) HTN (hypertension) Code(s): I10 - ESSENTIAL (PRIMARY) HYPERTENSION Qualifiers: Hypertension type: essential hypertension Qualified Code(s): I10 - Essential (primary) hypertension (4) ESRD (end stage renal disease) Code(s): N18.6 - END STAGE RENAL DISEASE (5) HLD (hyperlipidemia) Code(s): E78.5 - HYPERLIPIDEMIA, UNSPECIFIED Qualifiers: Hyperlipidemia type: pure hypercholesterolemia Qualified Code(s): E78.00 - Pure hypercholesterolemia, unspecified (6) Liver disease, chronic, with cirrhosis Code(s): K74.60 - UNSPECIFIED CIRRHOSIS OF LIVER; K76.9 - LIVER DISEASE, UNSPECIFIED (7) Open wnd foot-complicated Code(s): S91.309A - UNSPECIFIED OPEN WOUND, UNSPECIFIED FOOT, INITIAL ENCOUNTER (8) Peripheral arterial disease Code(s): I73.9 - PERIPHERAL VASCULAR DISEASE, UNSPECIFIED (9) S/P AKA (above knee amputation) Code(s): Z89.619 - ACQUIRED ABSENCE OF UNSPECIFIED LEG ABOVE KNEE Qualifiers: Laterality: right Qualified Code(s): Z89.611 - Acquired absence of right leg above knee Assessment/Plan VRE infected Lt BKA wound PAD s/p right AKA occluded left SFA s/p angioplasty/stent s/p left BKA ESRD on HD History of DVT - continue antibiotics, dressing changes - pt afebrile, without leukocytosis
[2017-04-13] MEDS: ROSUVASTATIN CA 5 MG TABLET (FP) PO SCH (23:06)
[2017-04-13] MEDS: DOCUSATE SODIUM 100 MG CAPSULE (FP) PO SCH (23:17)
[2017-04-14] MEDS: PIPERACILLIN/TAZOB 2.25 GM 2.25 GM in DEXTROSE 5%-WATER - 50 ML IVPB SCH ×3 (02:09→18:40)
[2017-04-14] MEDS ORDERED: EPOETIN ALFA 3,000 UNIT/1 ML ML IVPUSH ONE (06:00)
[2017-04-14] MEDS: AMINO ACIDS/PROTEIN HYDROLYS 30 ML LIQUID.PKT PO SCH ×2 (07:31→18:39)
[2017-04-14] MEDS ORDERED: PT OWN MED DRAWER 7, Y5N ONE ×2 (09:19→11:33)
[2017-04-14] MEDS: MIDODRINE HCL 5 MG TABLET PO SCH ×3 (09:25→18:40)
[2017-04-14] MEDS: GABAPENTIN 100 MG CAPSULE (FP) PO SCH ×2 (09:26→22:32)
[2017-04-14] MEDS: CARVEDILOL 3.125 MG TABLET (FP) PO SCH ×2 (09:26→22:32)
[2017-04-14] MEDS: SUCRALFATE 1 GM/10 ML UNIT DOSE CUPS PO SCH ×2 (09:27→22:31)
[2017-04-14] MEDS: QUEtiapine FUMARATE 25 MG TABLET (FP) PO SCH ×2 (09:28→22:32)
[2017-04-14] MEDS: RANITIDINE HCL 150 MG/10 ML UNIT-DOSE PO SCH (09:28)
[2017-04-14] MEDS: BUDESONIDE/FORMETEROL FUMARATE 80/4.5 mcg INHALER IH SCH ×2 (09:30→22:33)
--- NOTE | 2017-04-14 11:11 | PN ---
Progress Note, Physician History of Present Illness: Sensorium improved, more interactive. - Current Medication List Current Medications: Active Medications Acetaminophen (Tylenol -) 650 mg PO Q6H PRN PRN Reason: FEVER OR PAIN Last Admin: 04/11/17 23:04 Dose: 650 mg Amino Acids (Prosource No Carb Liquid Pkt) 30 ml PO BID@0800,1730 [facility] Last Admin: 04/14/17 07:31 Dose: 30 ml Budesonide/Formoterol Fumarate (Symbicort 80/4.5mcg -) 2 puff IH BID [facility] Last Admin: 04/14/17 09:30 Dose: 2 puff Carvedilol (Coreg -) 3.125 mg PO BID [facility] Last Admin: 04/14/17 09:26 Dose: 3.125 mg Diphenhydramine HCl (Benadryl -) 25 mg PO Q6H PRN PRN Reason: FOR ITCHING Docusate Sodium (Colace -) 300 mg PO HS [facility] Last Admin: 04/13/17 23:17 Dose: Not Given Epoetin Nash (Procrit -) 6,000 unit IVPUSH ONCE ONE Stop: 04/14/17 06:01 Gabapentin (Neurontin -) 100 mg PO BID [facility] Last Admin: 04/14/17 09:26 Dose: 100 mg Haloperidol (Haldol Injection (Fast Acting) -) 2 mg IM Q4H PRN PRN Reason: AGITATION Last Admin: 04/06/17 11:50 Dose: 2 mg Piperacillin Sod/Tazobactam (Sod 2.25 gm/ Dextrose) 50 mls @ 100 mls/hr IVPB Q8H-IV [facility] PRN Reason: Protocol Last Admin: 04/14/17 02:09 Dose: 100 mls/hr Daptomycin 250 mg/ Sodium (Chloride) 50 mls @ 50 mls/hr IVPB Q2D@1900 [facility] PRN Reason: Protocol Last Admin: 04/12/17 18:27 Dose: 50 mls/hr Midodrine (Proamatine -) 10 mg PO TID-MID [facility] Last Admin: 04/14/17 09:25 Dose: 10 mg Ondansetron HCl (Zofran Injection) 4 mg IVPUSH Q6H PRN PRN Reason: NAUSEA AND/OR VOMITING Oxycodone HCl (Roxicodone -) 5 mg PO Q4H PRN PRN Reason: PAIN Last Admin: 04/13/17 12:41 Dose: 5 mg Quetiapine Fumarate (Seroquel -) 25 mg PO BID [facility] Last Admin: 04/14/17 09:28 Dose: 25 mg Ranitidine HCl (Zantac Oral Solution -) 150 mg PO DAILY [facility] Last Admin: 04/14/17 09:28 Dose: 150 mg Rosuvastatin Calcium (Crestor -) 5 mg PO HS [facility] Last Admin: 04/13/17 23:06 Dose: 5 mg Silver Sulfadiazine (Silvadene -) 1 applic TP BID [facility] Last Admin: 04/13/17 22:51 Dose: Not Given Sucralfate (Carafate Oral Suspension -) 0.5 gm PO BID [facility] Last Admin: 04/14/17 09:27 Dose: 0.5 gm Warfarin Sodium (Coumadin -) 3 mg PO DAILY@1800 [facility] Last Admin: 04/13/17 18:15 Dose: 3 mg - Objective Vital Signs: Vital Signs Temperature 97.5 F L 04/14/17 06:00 Pulse Rate 80 04/14/17 09:44 Respiratory Rate 16 04/14/17 09:44 Blood Pressure 102/60 04/14/17 09:44 O2 Sat by Pulse Oximetry (%) 100 04/11/17 21:00 Constitutional: Yes: No Distress, Calm, Thin Neck: Yes: Supple Cardiovascular: Yes: Regular Rate and Rhythm, Murmur (2/6 SM) Respiratory: Yes: Regular, Diminished Gastrointestinal: Yes: Normal Bowel Sounds, Soft Extremities: Yes: Amputation Edema: No Labs: CBC, BMP 04/13/17 08:45 04/13/17 08:45 INR, PTT INR 2.87 (0.82-1.09) H 04/13/17 13:46 Fibrinogen 296.0 mg/dL (238-498) D 03/30/17 06:10 Problem List - Problems (1) Critical lower limb ischemia Code(s): I99.8 - OTHER DISORDER OF CIRCULATORY SYSTEM (2) HLD (hyperlipidemia) Code(s): E78.5 - HYPERLIPIDEMIA, UNSPECIFIED Qualifiers: Hyperlipidemia type: pure hypercholesterolemia Qualified Code(s): E78.00 - Pure hypercholesterolemia, unspecified (3) HTN (hypertension) Code(s): I10 - ESSENTIAL (PRIMARY) HYPERTENSION Qualifiers: Hypertension type: essential hypertension Qualified Code(s): I10 - Essential (primary) hypertension (4) ESRD (end stage renal disease) Code(s): N18.6 - END STAGE RENAL DISEASE (5) Atrial fibrillation Code(s): I48.91 - UNSPECIFIED ATRIAL FIBRILLATION Qualifiers: Atrial fibrillation type: persistent Qualified Code(s): I48.1 - Persistent atrial fibrillation (6) Amputated toe of left foot Code(s): Z89.422 - ACQUIRED ABSENCE OF OTHER LEFT TOE(S) (7) S/P AKA (above knee amputation) Code(s): Z89.619 - ACQUIRED ABSENCE OF UNSPECIFIED LEG ABOVE KNEE Qualifiers: Laterality: right Qualified Code(s): Z89.611 - Acquired absence of right leg above knee (8) Cardiomyopathy Code(s): I42.9 - CARDIOMYOPATHY, UNSPECIFIED Qualifiers: Cardiomyopathy type: unspecified Qualified Code(s): I42.9 - Cardiomyopathy , unspecified (9) Systolic dysfunction, left ventricle Code(s): I51.9 - HEART DISEASE, UNSPECIFIED (10) Anticoagulant long-term use Code(s): Z79.01 - NURSING HOME (CURRENT) USE OF ANTICOAGULANTS (11) Thrombocytopenia Code(s): D69.6 - THROMBOCYTOPENIA, UNSPECIFIED (12) Peripheral arterial disease Code(s): I73.9 - PERIPHERAL VASCULAR DISEASE, UNSPECIFIED Assessment/Plan 1. 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 CAD angina pectoris 3. Dilated cardiomyopathy with chronic class I-II NYHA classification LV systolic failure, compensated/ euvolemic 4. Persistent atrial fibrillation [id number] score of 4 - supratherapeutic INR 5. Severe TR with pulmonary HTN 6. HTN 7. ESRD on HD 8. History of DVT 9. Anemia 10. Thrombocytopenia PLAN: 1. Continue Coreg 3.125 bid 2. Continue Crestor 5 qhs 3. HD as per renal service 4. Continue Coumadin per INR 2-3 5. Wound care care. Complete antibiotic course. Vascular follow up and if he has poor healing post BKA, he may need AKA 6. Continue Midodrine and monitor BP closely
[2017-04-14] MEDS: oxyCODONE HCL 5 MG TABLET PO PRN ×2 (11:53→18:57)
[2017-04-14] MEDS ORDERED: LORazepam 2 MG/ML SDV VIAL IVPUSH PRN (13:16)
--- NOTE | 2017-04-14 13:16 | PN ---
Physical Exam: SUBJECTIVE: Patient seen and examined. No acute issues, no fevers, chills note. For HD today OBJECTIVE: Vital Signs Period Temp Pulse Resp BP Sys/Coleman Pulse Ox Last 24 Hr 97.4 F-98.3 F 67-83 16-20 91-117/51-89 PE Neuro: awake, confused at times Pulm: CTA anteriorly CV: s1 s2 irregular rate + 2/6 systolic murmur Abd: soft, nt, nd +bs Ext: R AKA amputation, R AVF, left BKA lateral stump with necrosis, eliezer in tact, area draining, no odor, appears soft/wet Laboratory Results - last 24 hr 04/13/17 13:46 PT with INR 32.40 H INR 2.87 H Active Medications Generic Name Dose Route Start Last Admin Trade Name Freq PRN Reason Stop Dose Admin Acetaminophen 650 mg 04/08/17 12:41 04/11/17 23:04 Tylenol - PO 650 mg Q6H PRN Administration FEVER OR PAIN Amino Acids 30 ml 04/02/17 11:00 04/14/17 07:31 Prosource No Carb Liquid Pkt PO 30 ml BID@0800,1730 [facility] Administration Budesonide/Formoterol Fumarate 2 puff 04/01/17 22:00 04/14/17 09:30 Symbicort 80/4.5mcg - IH 2 puff BID [facility] Administration Carvedilol 3.125 mg 04/01/17 22:00 04/14/17 09:26 Coreg - PO 3.125 mg BID [facility] Administration Diphenhydramine HCl 25 mg 04/01/17 17:31 Benadryl - PO Q6H PRN FOR ITCHING Docusate Sodium 300 mg 04/01/17 22:00 04/13/17 23:17 Colace - PO Not Given HS [facility] Epoetin Nash 6,000 unit 04/14/17 06:00 Procrit - IVPUSH 04/14/17 06:01 ONCE ONE Gabapentin 100 mg 04/06/17 10:00 04/14/17 09:26 Neurontin - PO 100 mg BID [facility] Administration Haloperidol 2 mg 04/04/17 16:53 04/06/17 11:50 Haldol Injection (Fast Acting) - IM 2 mg Q4H PRN Administration AGITATION Piperacillin Sod/Tazobactam 50 mls @ 100 mls/hr 04/08/17 16:30 04/14/17 11:42 Sod 2.25 gm/ Dextrose IVPB 100 mls/hr Q8H-IV [facility] Administration Protocol Daptomycin 250 mg/ Sodium 50 mls @ 50 mls/hr 04/10/17 19:00 04/12/17 18:27 Chloride IVPB 50 mls/hr Q2D@1900 [facility] Administration Protocol Midodrine 10 mg 04/01/17 18:00 04/14/17 09:25 Proamatine - PO 10 mg TID-MID [facility] Administration Ondansetron HCl 4 mg 04/01/17 17:31 Zofran Injection IVPUSH Q6H PRN NAUSEA AND/OR VOMITING Oxycodone HCl 5 mg 04/12/17 11:36 04/14/17 11:53 Roxicodone - PO 5 mg Q4H PRN Administration PAIN Quetiapine Fumarate 25 mg 04/02/17 10:50 04/14/17 09:28 Seroquel - PO 25 mg BID [facility] Administration Ranitidine HCl 150 mg 04/02/17 10:00 04/14/17 09:28 Zantac Oral Solution - PO 150 mg DAILY [facility] Administration Rosuvastatin Calcium 5 mg 04/01/17 22:00 04/13/17 23:06 Crestor - PO 5 mg HS [facility] Administration Silver Sulfadiazine 1 applic 04/06/17 13:45 04/13/17 22:51 Silvadene - TP Not Given BID [facility] Sucralfate 0.5 gm 04/01/17 22:00 04/14/17 09:27 Carafate Oral Suspension - PO 0.5 gm BID [facility] Administration Warfarin Sodium 3 mg 04/13/17 18:00 04/13/17 18:15 Coumadin - PO 3 mg DAILY@1800 [facility] Administration Assessment: 77 year old male with PMHX significant for ESRD HD (T,Th,S) HTN, DVT , PAD, vasculopathy s/p R AKA, s/p L SFA angioplasty and stent placement and 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 Plan: 1. Left SFA occlusion, left foot gangrene, severe sepsis - S/p BKA 04/01 - Continue with betadine soaks, d/w Vascular will eval wound today, ideally plan to wait and watchm hold on AKA as no infectious signs currently - Remains on Zosyn, dapto per ID - CK level tomorrow 2. Hx of DVT - Coumadin 3mg - Dose coumadin for goal INR 2-3 3. Thrombocytopenia - Down trended today, possible due to meds? - AC per INR 4. Acute metabolic encephalopathy - Unchanged, moments of confusion 5. ESRD - Continue HD as scheduled - Renal diet 6. A.fib, chronic - On Coumadin 7. AAA - F/u outpatient 8. Chronic anemia - Monitor Hgb - Continue to monitor 9. Prophylaxis: - On Coumadin, INR therapeutic Visit type - Emergency Visit Emergency Visit: Yes ED Registration Date: 03/14/17 Care time: The patient presented to the Emergency Department on the above date and was hospitalized for further evaluation of their emergent condition. - New Patient This patient is new to me today: No - Critical Care Critical Care patient: No
[2017-04-14] MEDS: SILVER SULFADIAZINE 1% TOP CREAM 400 GM JAR TP SCH ×3 (13:37→21:38)
[2017-04-14 14:53] LABS: MCH 28.1 pg (25.7-33.7); MCHC 31.5 g/dl (32.0-35.9); MEAN CELL VOLUME 89.3 fl (80-96); MEAN PLT VOLUME 7.9 fl (7.5-11.1); PLATELET COUNT 74 K/MM3 (134-434); RDW 20.2 % (11.9-15.9); WHITE BLOOD COUNT 6.4 K/mm3 (4.0-10.0)
[2017-04-14 15:14] LABS: INR 3.2 (0.82-1.09); PROTHROMBIN TIME (PATIENT) 36.2 SEC (9.98-11.88)
[2017-04-14 15:25] LABS: ANION GAP 10 (8-16); CALCIUM 7.4 mg/dL (8.5-10.1); CO2 29 mmol/L (21-32); GLUCOSE,RANDOM 100 mg/dL (74-106)
[2017-04-14 15:31] LABS: PHOSPHOROUS 5.1 mg/dL (2.5-4.9)
[2017-04-14 15:46] LABS: CREATININE 8.9 mg/dL (0.7-1.3)
--- NOTE | 2017-04-14 15:52 | PN ---
Progress Note (short form) - Note Progress Note: Renal Follow up for ESRD on HD Pt seen and examined during dialysis BF 350, goal UF is 1.5L BP is low at the end of the treatment no fevers, chills Vital Signs Temperature 97.5 F L 04/14/17 06:00 Pulse Rate 61 04/14/17 14:35 Respiratory Rate 18 04/14/17 14:35 Blood Pressure 96/51 04/14/17 14:35 O2 Sat by Pulse Oximetry (%) 100 04/11/17 21:00 Intake & Output 04/11/17 04/12/17 04/13/17 04/14/17 23:59 23:59 23:59 23:59 Intake Total 1170 660 150 150 Balance 1170 660 150 150 Weight 55.066 kg 56.336 kg 57.47 kg 57.017 kg calm, NAD RRR CTA (anterior) Left leg in brace s/p amputation CBC, BMP 04/14/17 14:15 04/14/17 14:15 Current Medications Acetaminophen (Tylenol -) 650 mg PO Q6H PRN PRN Reason: FEVER OR PAIN Last Admin: 04/11/17 23:04 Dose: 650 mg Amino Acids (Prosource No Carb Liquid Pkt) 30 ml PO BID@0800,1730 [facility] Last Admin: 04/14/17 07:31 Dose: 30 ml Budesonide/Formoterol Fumarate (Symbicort 80/4.5mcg -) 2 puff IH BID [facility] Last Admin: 04/14/17 09:30 Dose: 2 puff Carvedilol (Coreg -) 3.125 mg PO BID [facility] Last Admin: 04/14/17 09:26 Dose: 3.125 mg Diphenhydramine HCl (Benadryl -) 25 mg PO Q6H PRN PRN Reason: FOR ITCHING Docusate Sodium (Colace -) 300 mg PO HS [facility] Last Admin: 04/13/17 23:17 Dose: Not Given Gabapentin (Neurontin -) 100 mg PO BID [facility] Last Admin: 04/14/17 09:26 Dose: 100 mg Haloperidol (Haldol Injection (Fast Acting) -) 2 mg IM Q4H PRN PRN Reason: AGITATION Last Admin: 04/06/17 11:50 Dose: 2 mg Piperacillin Sod/Tazobactam (Sod 2.25 gm/ Dextrose) 50 mls @ 100 mls/hr IVPB Q8H-IV [facility] PRN Reason: Protocol Last Admin: 04/14/17 11:42 Dose: 100 mls/hr Daptomycin 250 mg/ Sodium (Chloride) 50 mls @ 50 mls/hr IVPB Q2D@1900 [facility] PRN Reason: Protocol Last Admin: 04/12/17 18:27 Dose: 50 mls/hr Lorazepam (Ativan Injection -) 0.5 mg IVPUSH BID PRN PRN Reason: ANXIETY Last Admin: 04/14/17 13:37 Dose: 0.5 mg Midodrine (Proamatine -) 10 mg PO TID-MID [facility] Last Admin: 04/14/17 14:22 Dose: Not Given Ondansetron HCl (Zofran Injection) 4 mg IVPUSH Q6H PRN PRN Reason: NAUSEA AND/OR VOMITING Oxycodone HCl (Roxicodone -) 5 mg PO Q4H PRN PRN Reason: PAIN Last Admin: 04/14/17 11:53 Dose: 5 mg Quetiapine Fumarate (Seroquel -) 25 mg PO BID [facility] Last Admin: 04/14/17 09:28 Dose: 25 mg Ranitidine HCl (Zantac Oral Solution -) 150 mg PO DAILY [facility] Last Admin: 04/14/17 09:28 Dose: 150 mg Rosuvastatin Calcium (Crestor -) 5 mg PO HS [facility] Last Admin: 04/13/17 23:06 Dose: 5 mg Sevelamer Carbonate (Renvela -) 800 mg PO TIDCM [facility] Silver Sulfadiazine (Silvadene -) 1 applic TP BID [facility] Last Admin: 04/14/17 13:37 Dose: 1 applic Sucralfate (Carafate Oral Suspension -) 0.5 gm PO BID [facility] Last Admin: 04/14/17 09:27 Dose: 0.5 gm Warfarin Sodium (Coumadin -) 3 mg PO DAILY@1800 [facility] Last Admin: 04/13/17 18:15 Dose: 3 mg 77 year old gentleman with PMhx of ESRD on HD (TTS), Hypertension, DVT, PVD s/p right AKA and left toe amputation who presented to the ED with complaints of pain in his left foot and admitted fro soft tissue infection of the foot with concern for worsening ischemic disease. #ESRD on HD Hd today with 2k bath Goal UF is 1.5L will continue 3x weekly Hd while inpatient outpatient Hd unit placement pending #Wound/Ischemia of left LE Vascular follow up continue Dapto and zosyn as per ID #Acute on Chronic Anemia continue IVANIA with HD no indication for transfusion at this time #Hypocalcemia corrected Ca is WNL start renvela TID with meals PTH is acceptable for ESRD Thank you Raghu Boogie DO Problem List - Problems (1) Critical lower limb ischemia Code(s): I99.8 - OTHER DISORDER OF CIRCULATORY SYSTEM (2) Open wnd foot-complicated Code(s): S91.309A - UNSPECIFIED OPEN WOUND, UNSPECIFIED FOOT, INITIAL ENCOUNTER (3) HTN (hypertension) Code(s): I10 - ESSENTIAL (PRIMARY) HYPERTENSION Qualifiers: Hypertension type: essential hypertension Qualified Code(s): I10 - Essential (primary) hypertension (4) ESRD (end stage renal disease) Code(s): N18.6 - END STAGE RENAL DISEASE (5) Anemia Code(s): D64.9 - ANEMIA, UNSPECIFIED
[2017-04-14] MEDS: SEVELAMER CARBONATE 800 MG TAB (FP) PO SCH ×2 (18:39→18:53)
[2017-04-14] MEDS: diphenhydrAMINE HCL 25 MG CAPSULE (FP) PO PRN (18:44)
[2017-04-14] MEDS: WARFARIN NA 3 MG TABLET PO SCH (18:54)
[2017-04-14] MEDS: ROSUVASTATIN CA 5 MG TABLET (FP) PO SCH (22:32)
[2017-04-14] MEDS: DOCUSATE SODIUM 100 MG CAPSULE (FP) PO SCH (22:33)
[2017-04-14] MEDS: DAPTOMYCIN 250 MG in SODIUM CHLORIDE 50 ML IVPB SCH (22:51)
[2017-04-15] MEDS: PIPERACILLIN/TAZOB 2.25 GM 2.25 GM in DEXTROSE 5%-WATER - 50 ML IVPB SCH ×3 (01:28→17:10)
[2017-04-15 08:47] LABS: INR 2.99 (0.82-1.09); PROTHROMBIN TIME (PATIENT) 33.8 SEC (9.98-11.88)
--- NOTE | 2017-04-15 09:13 | PN ---
Progress Note (short form) - Note Progress Note: Vascular Surgery Pt seen and examined. Left bka stump -- eliezer opened. Wound debrided. No pus was found, however tissue looks dusky. Will place vac to area. Will try to salvage limb. If does not heal - will need left AkA WBC stable. ID on case. Faizan Villa DO
[2017-04-15] MEDS ORDERED: PT OWN MED DRAWER 7, Y5N ONE ×3 (10:32→17:09)
[2017-04-15] MEDS: AMINO ACIDS/PROTEIN HYDROLYS 30 ML LIQUID.PKT PO SCH ×2 (10:40→17:04)
[2017-04-15] MEDS: SUCRALFATE 1 GM/10 ML UNIT DOSE CUPS PO SCH ×2 (10:40→21:34)
[2017-04-15] MEDS: SEVELAMER CARBONATE 800 MG TAB (FP) PO SCH ×3 (10:40→17:04)
[2017-04-15] MEDS: CARVEDILOL 3.125 MG TABLET (FP) PO SCH ×2 (10:41→21:35)
[2017-04-15] MEDS: GABAPENTIN 100 MG CAPSULE (FP) PO SCH ×2 (10:41→21:37)
[2017-04-15] MEDS: MIDODRINE HCL 5 MG TABLET PO SCH ×3 (10:42→17:04)
[2017-04-15] MEDS: QUEtiapine FUMARATE 25 MG TABLET (FP) PO SCH ×2 (10:42→21:39)
[2017-04-15] MEDS: RANITIDINE HCL 150 MG/10 ML UNIT-DOSE PO SCH (10:42)
[2017-04-15] MEDS: BUDESONIDE/FORMETEROL FUMARATE 80/4.5 mcg INHALER IH SCH ×2 (10:42→21:38)
[2017-04-15] MEDS: SILVER SULFADIAZINE 1% TOP CREAM 400 GM JAR TP SCH ×2 (10:42→21:38)
[2017-04-15] MEDS: oxyCODONE HCL 5 MG TABLET PO PRN ×2 (10:43→15:01)
--- NOTE | 2017-04-15 10:46 | PN ---
Progress Note, Physician Chief Complaint: The patient seen in his bed. Patient is a 77 year old male with a significant past medical history of ESRD HD , atrial fib, hypertension, DVT, right AKA, Recent Left BKA. The left stump is not healing well. Area of necrosis. Vascular follow up noted. - Current Medication List Current Medications: Active Medications Acetaminophen (Tylenol -) 650 mg PO Q6H PRN PRN Reason: FEVER OR PAIN Last Admin: 04/11/17 23:04 Dose: 650 mg Amino Acids (Prosource No Carb Liquid Pkt) 30 ml PO BID@0800,1730 [facility] Last Admin: 04/15/17 10:40 Dose: 30 ml Budesonide/Formoterol Fumarate (Symbicort 80/4.5mcg -) [address] [facility] Last Admin: 04/15/17 10:42 Dose: 2 puff Carvedilol (Coreg -) 3.[address] [facility] Last Admin: 04/15/17 10:41 Dose: 3.125 mg Diphenhydramine HCl (Benadryl -) 25 mg PO Q6H PRN PRN Reason: FOR ITCHING Last Admin: 04/14/17 18:44 Dose: 25 mg Docusate Sodium (Colace -) [address] [facility] Last Admin: 04/14/17 22:33 Dose: Not Given Gabapentin (Neurontin -) [address] [facility] Last Admin: 04/15/17 10:41 Dose: 100 mg Haloperidol (Haldol Injection (Fast Acting) -) 2 mg IM Q4H PRN PRN Reason: AGITATION Last Admin: 04/06/17 11:50 Dose: 2 mg Piperacillin Sod/Tazobactam (Sod 2.25 gm/ Dextrose) 50 mls @ 100 mls/hr IVPB Q8H-IV [facility] PRN Reason: Protocol Last Admin: 04/15/17 10:42 Dose: 100 mls/hr Daptomycin 250 mg/ Sodium (Chloride) 50 mls @ 50 mls/hr IVPB Q2D@1900 [facility] PRN Reason: Protocol Last Admin: 04/14/17 22:51 Dose: 50 mls/hr Lorazepam (Ativan Injection -) 0.5 mg IVPUSH BID PRN PRN Reason: ANXIETY Last Admin: 04/14/17 13:37 Dose: 0.5 mg Midodrine (Proamatine -) [address] TID-MID [facility] Last Admin: 04/15/17 10:42 Dose: 10 mg Ondansetron HCl (Zofran Injection) 4 mg IVPUSH Q6H PRN PRN Reason: NAUSEA AND/OR VOMITING Oxycodone HCl (Roxicodone -) 5 mg PO Q4H PRN PRN Reason: PAIN Last Admin: 04/15/17 10:43 Dose: 5 mg Quetiapine Fumarate (Seroquel -) [address] [facility] Last Admin: 04/15/17 10:42 Dose: 25 mg Ranitidine HCl (Zantac Oral Solution -) [address] [facility] Last Admin: 04/15/17 10:42 Dose: 150 mg Rosuvastatin Calcium (Crestor -) [address] [facility] Last Admin: 04/14/17 22:32 Dose: 5 mg Sevelamer Carbonate (Renvela -) [address] [facility] Last Admin: 04/15/17 10:40 Dose: 800 mg Silver Sulfadiazine (Silvadene -) [address] [facility] Last Admin: 04/15/17 10:42 Dose: Not Given Sucralfate (Carafate Oral Suspension -) 0.[address] [facility] Last Admin: 04/15/17 10:40 Dose: 0.5 gm Warfarin Sodium (Coumadin -) 3 mg PO DAILY@1800 [facility] Last Admin: 04/14/17 18:54 Dose: Not Given - Objective Vital Signs: Vital Signs Temperature 97.4 F L 04/14/17 22:00 Pulse Rate 80 04/15/17 10:00 Respiratory Rate 16 04/15/17 10:00 Blood Pressure 100/60 04/15/17 10:00 O2 Sat by Pulse Oximetry (%) 100 04/11/17 21:00 Constitutional: Yes: Calm Eyes: Yes: Conjunctiva Clear HENT: Yes: Normocephalic Neck: Yes: Trachea Midline Cardiovascular: Yes: S1, S2 Respiratory: Yes: CTA Bilaterally, Diminished Gastrointestinal: Yes: Normal Bowel Sounds Genitourinary: No: Bladder Distention, CVA Tenderness - Left, CVA Tenderness - Right Extremities: Yes: Amputation Edema: Yes Wound/Incision: Yes: Dressing Removed (The right BKA wound not healing. For placement of Wound vac.) Labs: CBC, BMP 04/14/17 14:15 04/14/17 14:15 INR, PTT INR 2.99 (0.82-1.09) H 04/15/17 08:00 Fibrinogen 296.0 mg/dL (238-498) D 03/30/17 06:10 Problem List - Problems (1) Open wnd foot-complicated Code(s): S91.309A - UNSPECIFIED OPEN WOUND, UNSPECIFIED FOOT, INITIAL ENCOUNTER (2) HTN (hypertension) Code(s): I10 - ESSENTIAL (PRIMARY) HYPERTENSION Qualifiers: Hypertension type: essential hypertension Qualified Code(s): I10 - Essential (primary) hypertension (3) ESRD (end stage renal disease) Code(s): N18.6 - END STAGE RENAL DISEASE (4) Anemia Code(s): D64.9 - ANEMIA, UNSPECIFIED (5) Atrial fibrillation Code(s): I48.91 - UNSPECIFIED ATRIAL FIBRILLATION Qualifiers: Atrial fibrillation type: persistent Qualified Code(s): I48.1 - Persistent atrial fibrillation (6) Amputated toe of left foot Code(s): Z89.422 - ACQUIRED ABSENCE OF OTHER LEFT TOE(S) (7) S/P AKA (above knee amputation) Code(s): Z89.619 - ACQUIRED ABSENCE OF UNSPECIFIED LEG ABOVE KNEE Qualifiers: Laterality: right Qualified Code(s): Z89.611 - Acquired absence of right leg above knee Assessment/Plan Patient is a 77 year old male with a significant past medical history of ESRD HD , Atrial fib, hypertension, DVT, right AKA, and recent left BKA. Had last HD yesterday. Next HD scheduled for tomorrow. Surgical follow up noted. For placement of wound vac. AKA if the BKA stump is not healing. Emily San MD
--- NOTE | 2017-04-15 11:26 | PN ---
Progress Note, Physician History of Present Illness: Lethargic, left BKA stump poorly healing, plan for wound vac placement. - Current Medication List Current Medications: Active Medications Acetaminophen (Tylenol -) 650 mg PO Q6H PRN PRN Reason: FEVER OR PAIN Last Admin: 04/11/17 23:04 Dose: 650 mg Amino Acids (Prosource No Carb Liquid Pkt) 30 ml PO BID@0800,1730 [facility] Last Admin: 04/15/17 10:40 Dose: 30 ml Budesonide/Formoterol Fumarate (Symbicort 80/4.5mcg -) 2 puff IH BID [facility] Last Admin: 04/15/17 10:42 Dose: 2 puff Carvedilol (Coreg -) 3.125 mg PO BID [facility] Last Admin: 04/15/17 10:41 Dose: 3.125 mg Diphenhydramine HCl (Benadryl -) 25 mg PO Q6H PRN PRN Reason: FOR ITCHING Last Admin: 04/14/17 18:44 Dose: 25 mg Docusate Sodium (Colace -) 300 mg PO HS [facility] Last Admin: 04/14/17 22:33 Dose: Not Given Epoetin Nash (Procrit -) 10,000 unit SQ ONCE ONE Stop: 04/16/17 10:52 Gabapentin (Neurontin -) 100 mg PO BID [facility] Last Admin: 04/15/17 10:41 Dose: 100 mg Haloperidol (Haldol Injection (Fast Acting) -) 2 mg IM Q4H PRN PRN Reason: AGITATION Last Admin: 04/06/17 11:50 Dose: 2 mg Piperacillin Sod/Tazobactam (Sod 2.25 gm/ Dextrose) 50 mls @ 100 mls/hr IVPB Q8H-IV [facility] PRN Reason: Protocol Last Admin: 04/15/17 10:42 Dose: 100 mls/hr Daptomycin 250 mg/ Sodium (Chloride) 50 mls @ 50 mls/hr IVPB Q2D@1900 [facility] PRN Reason: Protocol Last Admin: 04/14/17 22:51 Dose: 50 mls/hr Lorazepam (Ativan Injection -) 0.5 mg IVPUSH BID PRN PRN Reason: ANXIETY Last Admin: 04/14/17 13:37 Dose: 0.5 mg Midodrine (Proamatine -) 10 mg PO TID-MID [facility] Last Admin: 04/15/17 10:42 Dose: 10 mg Ondansetron HCl (Zofran Injection) 4 mg IVPUSH Q6H PRN PRN Reason: NAUSEA AND/OR VOMITING Oxycodone HCl (Roxicodone -) 5 mg PO Q4H PRN PRN Reason: PAIN Last Admin: 04/15/17 10:43 Dose: 5 mg Quetiapine Fumarate (Seroquel -) 25 mg PO BID [facility] Last Admin: 04/15/17 10:42 Dose: 25 mg Ranitidine HCl (Zantac Oral Solution -) 150 mg PO DAILY [facility] Last Admin: 04/15/17 10:42 Dose: 150 mg Rosuvastatin Calcium (Crestor -) 5 mg PO HS [facility] Last Admin: 04/14/17 22:32 Dose: 5 mg Sevelamer Carbonate (Renvela -) 800 mg PO TIDCM [facility] Last Admin: 04/15/17 10:40 Dose: 800 mg Silver Sulfadiazine (Silvadene -) 1 applic TP BID [facility] Last Admin: 04/15/17 10:42 Dose: Not Given Sucralfate (Carafate Oral Suspension -) 0.5 gm PO BID [facility] Last Admin: 04/15/17 10:40 Dose: 0.5 gm Warfarin Sodium (Coumadin -) 3 mg PO DAILY@1800 [facility] Last Admin: 04/14/17 18:54 Dose: Not Given - Objective Vital Signs: Vital Signs Temperature 97.4 F L 04/14/17 22:00 Pulse Rate 80 04/15/17 10:00 Respiratory Rate 16 04/15/17 10:00 Blood Pressure 100/60 04/15/17 10:00 O2 Sat by Pulse Oximetry (%) 100 04/11/17 21:00 Constitutional: Yes: No Distress, Calm Neck: Yes: Supple Cardiovascular: Yes: Regular Rate and Rhythm Respiratory: Yes: Regular, Diminished Gastrointestinal: Yes: Normal Bowel Sounds, Soft Extremities: Yes: Amputation Edema: No Labs: CBC, BMP 04/14/17 14:15 04/14/17 14:15 INR, PTT INR 2.99 (0.82-1.09) H 04/15/17 08:00 Fibrinogen 296.0 mg/dL (238-498) D 11/15/17 06:10 Problem List - Problems (1) Critical lower limb ischemia Code(s): I99.8 - OTHER DISORDER OF CIRCULATORY SYSTEM (2) HLD (hyperlipidemia) Code(s): E78.5 - HYPERLIPIDEMIA, UNSPECIFIED Qualifiers: Hyperlipidemia type: pure hypercholesterolemia Qualified Code(s): E78.00 - Pure hypercholesterolemia, unspecified (3) HTN (hypertension) Code(s): I10 - ESSENTIAL (PRIMARY) HYPERTENSION Qualifiers: Hypertension type: essential hypertension Qualified Code(s): I10 - Essential (primary) hypertension (4) ESRD (end stage renal disease) Code(s): N18.6 - END STAGE RENAL DISEASE (5) Atrial fibrillation Code(s): I48.91 - UNSPECIFIED ATRIAL FIBRILLATION Qualifiers: Atrial fibrillation type: persistent Qualified Code(s): I48.1 - Persistent atrial fibrillation (6) Amputated toe of left foot Code(s): Z89.422 - ACQUIRED ABSENCE OF OTHER LEFT TOE(S) (7) S/P AKA (above knee amputation) Code(s): Z89.619 - ACQUIRED ABSENCE OF UNSPECIFIED LEG ABOVE KNEE Qualifiers: Laterality: right Qualified Code(s): Z89.611 - Acquired absence of right leg above knee (8) Cardiomyopathy Code(s): I42.9 - CARDIOMYOPATHY, UNSPECIFIED Qualifiers: Cardiomyopathy type: unspecified Qualified Code(s): I42.9 - Cardiomyopathy , unspecified (9) Systolic dysfunction, left ventricle Code(s): I51.9 - HEART DISEASE, UNSPECIFIED (10) Anticoagulant long-term use Code(s): Z79.01 - LOCATION MAN (CURRENT) USE OF ANTICOAGULANTS (11) Thrombocytopenia Code(s): D69.6 - THROMBOCYTOPENIA, UNSPECIFIED (12) Peripheral arterial disease Code(s): I73.9 - PERIPHERAL VASCULAR DISEASE, UNSPECIFIED Assessment/Plan 1. 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 CAD angina pectoris 3. Dilated cardiomyopathy with chronic class I-II NYHA classification LV systolic failure, compensated/ euvolemic 4. Persistent atrial fibrillation [id number] score of 4 - therapeutic INR 5. Severe TR with pulmonary HTN 6. HTN 7. ESRD on HD 8. History of DVT 9. Anemia 10. Thrombocytopenia PLAN: 1. Continue Coreg 3.125 bid 2. Continue Crestor 5 qhs 3. HD as per renal service 4. Continue Coumadin per INR 2-3 5. Wound vac placement planned. Complete antibiotic course. Vascular follow up noted, if he has continued poor healing post BKA, he may need AKA 6. Continue Midodrine and monitor BP closely
--- NOTE | 2017-04-15 12:08 | PN ---
Physical Exam: SUBJECTIVE: Patient seen and examined. He says he would like to take a shower, he is calm today, says his knee feels fine, no pain. Events: - Wound evaluated by vascular, site debrided, no puss - [place] removed, 2 remain OBJECTIVE: Vital Signs Period Temp Pulse Resp BP Sys/Coleman Pulse Ox Last 24 Hr 97.4 F-97.4 F 61-103 16-20 82-112/34-71 PE Neuro: awake, alert, cn 2-12intact confused at times Pulm: CTAB CV: s1 s2 irregular rate + 2/6 systolic murmur Abd: soft, nt, nd +bs Ext: R AKA amputation, R AVF, left BKA lateral stump with necrosis, 2 eliezer remain Laboratory Results - last 24 hr 04/14/17 04/14/17 04/14/17 14:15 14:15 14:15 WBC 6.4 RBC 3.76 L Hgb 10.6 L Hct 33.5 L MCV 89.3 MCH 28.1 MCHC 31.5 L RDW 20.2 H Plt Count 74 L MPV 7.9 PT with INR 36.20 H INR 3.20 H Sodium 139 Potassium 5.3 H Chloride 100 Carbon Dioxide 29 Anion Gap 10 BUN 80 H Creatinine 8.9 H* Random Glucose 100 Calcium 7.4 L Phosphorus 5.1 H Creatine Kinase 04/15/17 04/15/17 08:00 08:00 WBC RBC Hgb Hct MCV MCH MCHC RDW Plt Count MPV PT with INR 33.80 H INR 2.99 H Sodium Potassium Chloride Carbon Dioxide Anion Gap BUN Creatinine Random Glucose Calcium Phosphorus Creatine Kinase 19 L Active Medications Generic Name Dose Route Start Last Admin Trade Name Freq PRN Reason Stop Dose Admin Acetaminophen 650 mg 04/08/17 12:41 04/11/17 23:04 Tylenol - PO 650 mg Q6H PRN Administration FEVER OR PAIN Amino Acids 30 ml 04/02/17 11:00 04/15/17 10:40 Prosource No Carb Liquid Pkt PO 30 ml BID@0800,1730 [facility] Administration Budesonide/Formoterol Fumarate 2 puff 04/01/17 22:00 04/15/17 10:42 Symbicort 80/4.5mcg - IH 2 puff BID [facility] Administration Carvedilol 3.125 mg 04/01/17 22:00 04/15/17 10:41 Coreg - PO 3.125 mg BID [facility] Administration Diphenhydramine HCl 25 mg 04/01/17 17:31 04/14/17 18:44 Benadryl - PO 25 mg Q6H PRN Administration FOR ITCHING Docusate Sodium 300 mg 04/01/17 22:00 04/14/17 22:33 Colace - PO Not Given HS [facility] Epoetin Nash 10,000 unit 04/16/17 10:51 Procrit - SQ 04/16/17 10:52 ONCE ONE Gabapentin 100 mg 04/06/17 10:00 04/15/17 10:41 Neurontin - PO 100 mg BID [facility] Administration Haloperidol 2 mg 04/04/17 16:53 04/06/17 11:50 Haldol Injection (Fast Acting) - IM 2 mg Q4H PRN Administration AGITATION Piperacillin Sod/Tazobactam 50 mls @ 100 mls/hr 04/08/17 16:30 04/15/17 10:42 Sod 2.25 gm/ Dextrose IVPB 100 mls/hr Q8H-IV [facility] Administration Protocol Daptomycin 250 mg/ Sodium 50 mls @ 50 mls/hr 04/10/17 19:00 04/14/17 22:51 Chloride IVPB 50 mls/hr Q2D@1900 [facility] Administration Protocol Lorazepam 0.5 mg 04/14/17 13:16 04/14/17 13:37 Ativan Injection - IVPUSH 0.5 mg BID PRN Administration ANXIETY Midodrine 10 mg 04/01/17 18:00 04/15/17 10:42 Proamatine - PO 10 mg TID-MID [facility] Administration Ondansetron HCl 4 mg 04/01/17 17:31 Zofran Injection IVPUSH Q6H PRN NAUSEA AND/OR VOMITING Oxycodone HCl 5 mg 04/12/17 11:36 04/15/17 10:43 Roxicodone - PO 5 mg Q4H PRN Administration PAIN Quetiapine Fumarate 25 mg 04/02/17 10:50 04/15/17 10:42 Seroquel - PO 25 mg BID [facility] Administration Ranitidine HCl 150 mg 04/02/17 10:00 04/15/17 10:42 Zantac Oral Solution - PO 150 mg DAILY [facility] Administration Rosuvastatin Calcium 5 mg 04/01/17 22:00 04/14/17 22:32 Crestor - PO 5 mg HS [facility] Administration Sevelamer Carbonate 800 mg 04/14/17 16:00 04/15/17 10:40 Renvela - PO 800 mg TIDCM [facility] Administration Silver Sulfadiazine 1 applic 04/06/17 13:45 04/15/17 10:42 Silvadene - TP Not Given BID [facility] Sucralfate 0.5 gm 04/01/17 22:00 04/15/17 10:40 Carafate Oral Suspension - PO 0.5 gm BID [facility] Administration Warfarin Sodium 3 mg 04/13/17 18:00 04/14/17 18:54 Coumadin - PO Not Given DAILY@1800 [facility] Assessment: 77 year old male with PMHX significant for ESRD HD (T,Th,S) HTN, DVT , PAD, vasculopathy s/p R AKA, s/p L SFA angioplasty and stent placement and 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 Plan: 1. Left SFA occlusion, left foot gangrene, severe sepsis, - S/p BKA 04/01 - Wound vac placement today, goal to save limb, however if no success with wound vac will need AKA - Remains on Zosyn, dapto per ID 2. Hx of DVT - Decrease coumadin 2mg - Dose coumadin for goal INR 2-3 3. Thrombocytopenia - Labile - AC per INR 4. Acute metabolic encephalopathy - Sensorium improved 5. ESRD - Continue HD as scheduled per Renal service - Renal diet 6. A.fib, chronic - On Coumadin 7. AAA - F/u outpatient 8. Chronic anemia - Monitor Hgb - Continue to monitor 9. Prophylaxis: - On Coumadin, INR therapeutic Visit type - Emergency Visit Emergency Visit: Yes ED Registration Date: 03/14/17 Care time: The patient presented to the Emergency Department on the above date and was hospitalized for further evaluation of their emergent condition. - New Patient This patient is new to me today: No - Critical Care Critical Care patient: No
[2017-04-15] MEDS: WARFARIN NA 2 MG TABLET (UD) PO SCH (17:03)
--- NOTE | 2017-04-15 18:55 | PN ---
Progress Note, Physician History of Present Illness: Pt afebrile. No new complaints. Lt BKA site debrided. No purulence noted. - Current Medication List Current Medications: Active Medications Acetaminophen (Tylenol -) 650 mg PO Q6H PRN PRN Reason: FEVER OR PAIN Last Admin: 04/11/17 23:04 Dose: 650 mg Amino Acids (Prosource No Carb Liquid Pkt) 30 ml PO BID@0800,1730 [facility] Last Admin: 04/15/17 17:04 Dose: 30 ml Budesonide/Formoterol Fumarate (Symbicort 80/4.5mcg -) 2 puff IH BID [facility] Last Admin: 04/15/17 10:42 Dose: 2 puff Carvedilol (Coreg -) 3.125 mg PO BID [facility] Last Admin: 04/15/17 10:41 Dose: 3.125 mg Diphenhydramine HCl (Benadryl -) 25 mg PO Q6H PRN PRN Reason: FOR ITCHING Last Admin: 04/14/17 18:44 Dose: 25 mg Docusate Sodium (Colace -) 300 mg PO HS [facility] Last Admin: 04/14/17 22:33 Dose: Not Given Epoetin Nash (Procrit -) 10,000 unit SQ ONCE ONE Stop: 04/16/17 10:52 Gabapentin (Neurontin -) 100 mg PO BID [facility] Last Admin: 04/15/17 10:41 Dose: 100 mg Haloperidol (Haldol Injection (Fast Acting) -) 2 mg IM Q4H PRN PRN Reason: AGITATION Last Admin: 04/06/17 11:50 Dose: 2 mg Piperacillin Sod/Tazobactam (Sod 2.25 gm/ Dextrose) 50 mls @ 100 mls/hr IVPB Q8H-IV [facility] PRN Reason: Protocol Last Admin: 04/15/17 17:10 Dose: 100 mls/hr Daptomycin 250 mg/ Sodium (Chloride) 50 mls @ 50 mls/hr IVPB Q2D@1900 [facility] PRN Reason: Protocol Last Admin: 04/14/17 22:51 Dose: 50 mls/hr Lorazepam (Ativan Injection -) 0.5 mg IVPUSH BID PRN PRN Reason: ANXIETY Last Admin: 04/14/17 13:37 Dose: 0.5 mg Midodrine (Proamatine -) 10 mg PO TID-MID [facility] Last Admin: 04/15/17 17:04 Dose: 10 mg Ondansetron HCl (Zofran Injection) 4 mg IVPUSH Q6H PRN PRN Reason: NAUSEA AND/OR VOMITING Oxycodone HCl (Roxicodone -) 5 mg PO Q4H PRN PRN Reason: PAIN Last Admin: 04/15/17 15:01 Dose: 5 mg Quetiapine Fumarate (Seroquel -) 25 mg PO BID [facility] Last Admin: 04/15/17 10:42 Dose: 25 mg Ranitidine HCl (Zantac Oral Solution -) 150 mg PO DAILY [facility] Last Admin: 04/15/17 10:42 Dose: 150 mg Rosuvastatin Calcium (Crestor -) 5 mg PO HS [facility] Last Admin: 04/14/17 22:32 Dose: 5 mg Sevelamer Carbonate (Renvela -) 800 mg PO TIDCM [facility] Last Admin: 04/15/17 17:04 Dose: 800 mg Silver Sulfadiazine (Silvadene -) 1 applic TP BID [facility] Last Admin: 04/15/17 10:42 Dose: Not Given Sucralfate (Carafate Oral Suspension -) 0.5 gm PO BID [facility] Last Admin: 04/15/17 10:40 Dose: 0.5 gm Warfarin Sodium (Coumadin -) 2 mg PO DAILY@1800 [facility] Last Admin: 04/15/17 17:03 Dose: 2 mg - Objective Vital Signs: Vital Signs Temperature 98 F 04/15/17 16:15 Pulse Rate 98 H 04/15/17 16:15 Respiratory Rate 18 04/15/17 16:15 Blood Pressure 123/71 04/15/17 16:15 O2 Sat by Pulse Oximetry (%) 100 04/11/17 21:00 Constitutional: Yes: No Distress Neck: Yes: Supple Cardiovascular: Yes: Pulse Irregular Respiratory: Yes: Regular Gastrointestinal: Yes: Normal Bowel Sounds, Soft Wound/Incision: Yes: Other (wound with eliezer, no pus noted) Neurological: Yes: Alert Labs: CBC, BMP 04/14/17 14:15 04/14/17 14:15 INR, PTT INR 2.99 (0.82-1.09) H 04/15/17 08:00 Fibrinogen 296.0 mg/dL (238-498) D 03/30/17 06:10 Problem List - Problems (1) Atrial fibrillation Code(s): I48.91 - UNSPECIFIED ATRIAL FIBRILLATION Qualifiers: Atrial fibrillation type: persistent Qualified Code(s): I48.1 - Persistent atrial fibrillation (2) Critical lower limb ischemia Code(s): I99.8 - OTHER DISORDER OF CIRCULATORY SYSTEM (3) HTN (hypertension) Code(s): I10 - ESSENTIAL (PRIMARY) HYPERTENSION Qualifiers: Hypertension type: essential hypertension Qualified Code(s): I10 - Essential (primary) hypertension (4) ESRD (end stage renal disease) Code(s): N18.6 - END STAGE RENAL DISEASE (5) HLD (hyperlipidemia) Code(s): E78.5 - HYPERLIPIDEMIA, UNSPECIFIED Qualifiers: Hyperlipidemia type: pure hypercholesterolemia Qualified Code(s): E78.00 - Pure hypercholesterolemia, unspecified (6) Liver disease, chronic, with cirrhosis Code(s): K74.60 - UNSPECIFIED CIRRHOSIS OF LIVER; K76.9 - LIVER DISEASE, UNSPECIFIED (7) Open wnd foot-complicated Code(s): S91.309A - UNSPECIFIED OPEN WOUND, UNSPECIFIED FOOT, INITIAL ENCOUNTER (8) Peripheral arterial disease Code(s): I73.9 - PERIPHERAL VASCULAR DISEASE, UNSPECIFIED (9) S/P AKA (above knee amputation) Code(s): Z89.619 - ACQUIRED ABSENCE OF UNSPECIFIED LEG ABOVE KNEE Qualifiers: Laterality: right Qualified Code(s): Z89.611 - Acquired absence of right leg above knee Assessment/Plan Lt SFA occlusion s/p Lt BKA, non-healing wound site with VRE infection, with necrosis, now s/p debridement - d/c Zosyn - cont Daptomycin x 1 more week -cont. wound care
[2017-04-15] MEDS: DOCUSATE SODIUM 100 MG CAPSULE (FP) PO SCH (21:35)
[2017-04-15] MEDS: ROSUVASTATIN CA 5 MG TABLET (FP) PO SCH (21:36)
[2017-04-16] MEDS: PIPERACILLIN/TAZOB 2.25 GM 2.25 GM in DEXTROSE 5%-WATER - 50 ML IVPB SCH ×2 (01:27→09:20)
[2017-04-16] MEDS: AMINO ACIDS/PROTEIN HYDROLYS 30 ML LIQUID.PKT PO SCH ×2 (08:12→17:53)
[2017-04-16] MEDS: SEVELAMER CARBONATE 800 MG TAB (FP) PO SCH ×3 (08:12→17:47)
[2017-04-16] MEDS ORDERED: PT OWN MED DRAWER 7, Y5N ONE ×2 (09:19→22:43)
[2017-04-16] MEDS: SUCRALFATE 1 GM/10 ML UNIT DOSE CUPS PO SCH ×2 (10:00→23:27)
[2017-04-16] MEDS: RANITIDINE HCL 150 MG/10 ML UNIT-DOSE PO SCH ×2 (10:00→17:54)
[2017-04-16] MEDS: QUEtiapine FUMARATE 25 MG TABLET (FP) PO SCH ×2 (10:00→23:26)
[2017-04-16] MEDS: CARVEDILOL 3.125 MG TABLET (FP) PO SCH ×2 (10:00→23:25)
[2017-04-16] MEDS: GABAPENTIN 100 MG CAPSULE (FP) PO SCH ×2 (10:00→23:26)
[2017-04-16] MEDS: MIDODRINE HCL 5 MG TABLET PO SCH ×3 (10:00→17:52)
--- NOTE | 2017-04-16 10:01 | PN ---
Progress Note (short form) - Note Progress Note: Renal Follow up for ESRD on HD Pt seen and examined at the bedside no overnight events no acute complaints Vital Signs Temperature 98.1 F 04/16/17 08:20 Pulse Rate 76 04/16/17 08:20 Respiratory Rate 18 04/16/17 08:20 Blood Pressure 97/56 04/16/17 08:20 O2 Sat by Pulse Oximetry (%) 100 04/11/17 21:00 Intake & Output 04/13/17 04/14/17 04/15/17 04/16/17 23:59 23:59 23:59 23:59 Intake Total 150 250 350 Balance 150 250 350 Weight 57.47 kg 57.017 kg 56.245 kg 63.56 kg calm, NAD RRR CTA (anterior) Left leg in brace s/p amputation CBC, BMP 04/14/17 14:15 04/14/17 14:15 Current Medications Acetaminophen (Tylenol -) 650 mg PO Q6H PRN PRN Reason: FEVER OR PAIN Last Admin: 04/11/17 23:04 Dose: 650 mg Amino Acids (Prosource No Carb Liquid Pkt) 30 ml PO BID@0800,1730 [facility] Last Admin: 04/16/17 08:12 Dose: 30 ml Budesonide/Formoterol Fumarate (Symbicort 80/4.5mcg -) 2 puff IH BID [facility] Last Admin: 04/15/17 21:38 Dose: 2 puff Carvedilol (Coreg -) 3.125 mg PO BID [facility] Last Admin: 04/15/17 21:35 Dose: 3.125 mg Diphenhydramine HCl (Benadryl -) 25 mg PO Q6H PRN PRN Reason: FOR ITCHING Last Admin: 04/14/17 18:44 Dose: 25 mg Docusate Sodium (Colace -) 300 mg PO HS [facility] Last Admin: 04/15/17 21:35 Dose: Not Given Epoetin Nash (Procrit -) 10,000 unit SQ ONCE ONE Stop: 04/16/17 10:52 Gabapentin (Neurontin -) 100 mg PO BID [facility] Last Admin: 04/15/17 21:37 Dose: 100 mg Haloperidol (Haldol Injection (Fast Acting) -) 2 mg IM Q4H PRN PRN Reason: AGITATION Last Admin: 04/06/17 11:50 Dose: 2 mg Piperacillin Sod/Tazobactam (Sod 2.25 gm/ Dextrose) 50 mls @ 100 mls/hr IVPB Q8H-IV [facility] PRN Reason: Protocol Last Admin: 04/16/17 09:20 Dose: 100 mls/hr Daptomycin 250 mg/ Sodium (Chloride) 50 mls @ 50 mls/hr IVPB Q2D@1900 [facility] PRN Reason: Protocol Last Admin: 04/14/17 22:51 Dose: 50 mls/hr Lorazepam (Ativan Injection -) 0.5 mg IVPUSH BID PRN PRN Reason: ANXIETY Last Admin: 04/14/17 13:37 Dose: 0.5 mg Midodrine (Proamatine -) 10 mg PO TID-MID [facility] Last Admin: 04/15/17 17:04 Dose: 10 mg Ondansetron HCl (Zofran Injection) 4 mg IVPUSH Q6H PRN PRN Reason: NAUSEA AND/OR VOMITING Oxycodone HCl (Roxicodone -) 5 mg PO Q4H PRN PRN Reason: PAIN Last Admin: 04/15/17 15:01 Dose: 5 mg Quetiapine Fumarate (Seroquel -) 25 mg PO BID [facility] Last Admin: 04/15/17 21:39 Dose: 25 mg Ranitidine HCl (Zantac Oral Solution -) 150 mg PO DAILY [facility] Last Admin: 04/15/17 10:42 Dose: 150 mg Rosuvastatin Calcium (Crestor -) 5 mg PO HS [facility] Last Admin: 04/15/17 21:36 Dose: 5 mg Sevelamer Carbonate (Renvela -) 800 mg PO TIDCM [facility] Last Admin: 04/16/17 08:12 Dose: 800 mg Silver Sulfadiazine (Silvadene -) 1 applic TP BID [facility] Last Admin: 04/15/17 21:38 Dose: Not Given Sucralfate (Carafate Oral Suspension -) 0.5 gm PO BID [facility] Last Admin: 04/15/17 21:34 Dose: 0.5 gm Warfarin Sodium (Coumadin -) 2 mg PO DAILY@1800 [facility] Last Admin: 04/15/17 17:03 Dose: 2 mg 77 year old gentleman with PMhx of ESRD on HD (TTS), Hypertension, DVT, PVD s/p right AKA and left toe amputation who presented to the ED with complaints of pain in his left foot and admitted fro soft tissue infection of the foot with concern for worsening ischemic disease. #ESRD on HD HD today with UF as tolerated Renal diet outpatient HD unit placement when good for discharge #Wound/Ischemia of left LE Vascular follow up continue Dapto and zosyn as per ID #Acute on Chronic Anemia continue IVANIA with HD no indication for transfusion at this time #Hypocalcemia corrected Ca is WNL start renvela TID with meals PTH is acceptable for ESRD Thank you Raghu Boogie DO Problem List - Problems (1) Critical lower limb ischemia Code(s): I99.8 - OTHER DISORDER OF CIRCULATORY SYSTEM (2) Open wnd foot-complicated Code(s): S91.309A - UNSPECIFIED OPEN WOUND, UNSPECIFIED FOOT, INITIAL ENCOUNTER (3) HTN (hypertension) Code(s): I10 - ESSENTIAL (PRIMARY) HYPERTENSION Qualifiers: Hypertension type: essential hypertension Qualified Code(s): I10 - Essential (primary) hypertension (4) ESRD (end stage renal disease) Code(s): N18.6 - END STAGE RENAL DISEASE (5) Anemia Code(s): D64.9 - ANEMIA, UNSPECIFIED
[2017-04-16] MEDS ORDERED: EPOETIN ALFA 10,000 UNIT/1 ML VIAL SQ ONE (10:51)
--- NOTE | 2017-04-16 11:46 | PN ---
Physical Exam: SUBJECTIVE: Patient seen and examined. No acute issues, sleeping in bed. OBJECTIVE: Vital Signs Period Temp Pulse Resp BP Sys/Coleman Pulse Ox Last 24 Hr 97.3 F-98.9 F 72-98 16-18 97-123/56-82 PE Neuro: awake, alert, cn 2-12intact confused at times Pulm: CTAB CV: s1 s2 irregular rate + 2/6 systolic murmur Abd: soft, nt, nd +bs Ext: R AKA amputation, R AVF, left BKA with wound vac, + output Laboratory Results - last 24 hr 03/27/17 03/31/17 17:15 06:00 Crossmatch See Detail See Detail Active Medications Generic Name Dose Route Start Last Admin Trade Name Freq PRN Reason Stop Dose Admin Acetaminophen 650 mg 04/08/17 12:41 04/11/17 23:04 Tylenol - PO 650 mg Q6H PRN Administration FEVER OR PAIN Amino Acids 30 ml 04/02/17 11:00 04/16/17 08:12 Prosource No Carb Liquid Pkt PO 30 ml BID@0800,1730 [facility] Administration Budesonide/Formoterol Fumarate 2 puff 04/01/17 22:00 04/15/17 21:38 Symbicort 80/4.5mcg - IH 2 puff BID [facility] Administration Carvedilol 3.125 mg 04/01/17 22:00 04/15/17 21:35 Coreg - PO 3.125 mg BID [facility] Administration Diphenhydramine HCl 25 mg 04/01/17 17:31 04/14/17 18:44 Benadryl - PO 25 mg Q6H PRN Administration FOR ITCHING Docusate Sodium 300 mg 04/01/17 22:00 04/15/17 21:35 Colace - PO Not Given HS [facility] Epoetin Nash 10,000 unit 04/16/17 10:51 Procrit - SQ 04/16/17 10:52 ONCE ONE Gabapentin 100 mg 04/06/17 10:00 04/15/17 21:37 Neurontin - PO 100 mg BID [facility] Administration Haloperidol 2 mg 04/04/17 16:53 04/06/17 11:50 Haldol Injection (Fast Acting) - IM 2 mg Q4H PRN Administration AGITATION Piperacillin Sod/Tazobactam 50 mls @ 100 mls/hr 04/08/17 16:30 04/16/17 09:20 Sod 2.25 gm/ Dextrose IVPB 100 mls/hr Q8H-IV [facility] Administration Protocol Daptomycin 250 mg/ Sodium 50 mls @ 50 mls/hr 04/10/17 19:00 04/14/17 22:51 Chloride IVPB 50 mls/hr Q2D@1900 [facility] Administration Protocol Lorazepam 0.5 mg 04/14/17 13:16 04/14/17 13:37 Ativan Injection - IVPUSH 0.5 mg BID PRN Administration ANXIETY Midodrine 10 mg 04/01/17 18:00 04/15/17 17:04 Proamatine - PO 10 mg TID-MID [facility] Administration Ondansetron HCl 4 mg 04/01/17 17:31 Zofran Injection IVPUSH Q6H PRN NAUSEA AND/OR VOMITING Oxycodone HCl 5 mg 04/12/17 11:36 04/15/17 15:01 Roxicodone - PO 5 mg Q4H PRN Administration PAIN Quetiapine Fumarate 25 mg 04/02/17 10:50 04/15/17 21:39 Seroquel - PO 25 mg BID [facility] Administration Ranitidine HCl 150 mg 04/02/17 10:00 04/15/17 10:42 Zantac Oral Solution - PO 150 mg DAILY [facility] Administration Rosuvastatin Calcium 5 mg 04/01/17 22:00 04/15/17 21:36 Crestor - PO 5 mg HS [facility] Administration Sevelamer Carbonate 800 mg 04/14/17 16:00 04/16/17 08:12 Renvela - PO 800 mg TIDCM [facility] Administration Silver Sulfadiazine 1 applic 04/06/17 13:45 04/15/17 21:38 Silvadene - TP Not Given BID [facility] Sucralfate 0.5 gm 04/01/17 22:00 04/16/17 10:00 Carafate Oral Suspension - PO Not Given BID [facility] Warfarin Sodium 2 mg 04/15/17 12:06 04/15/17 17:03 Coumadin - PO 2 mg DAILY@1800 [facility] Administration Assessment: 77 year old male with PMHX significant for ESRD HD (T,Th,S) HTN, DVT , PAD, vasculopathy s/p R AKA, s/p L SFA angioplasty and stent placement and 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 Plan: 1. Left SFA occlusion, left foot gangrene, severe sepsis, - S/p BKA 04/01 - Wound vac placed 04/15, on going evaluation of wound, if wound vac does not improve, will need AKA per vascular - On Zosyn, dapto per ID 2. Hx of DVT - Coumadin 2mg - Dose coumadin for goal INR 2-3 3. Thrombocytopenia - Labile - AC per INR 4. Acute metabolic encephalopathy - Sensorium improved 5. ESRD - Continue HD as scheduled per Renal service - Renal diet 6. A.fib, chronic - On Coumadin 7. AAA - F/u outpatient 8. Chronic anemia - Monitor Hgb - Continue to monitor 9. Prophylaxis: - On Coumadin, INR therapeutic Visit type - Emergency Visit Emergency Visit: Yes ED Registration Date: 03/14/17 Care time: The patient presented to the Emergency Department on the above date and was hospitalized for further evaluation of their emergent condition. - New Patient This patient is new to me today: No - Critical Care Critical Care patient: No
[2017-04-16] MEDS: SILVER SULFADIAZINE 1% TOP CREAM 400 GM JAR TP SCH ×2 (12:45→23:29)
[2017-04-16] MEDS: HALOPERIDOL LACTATE 5 MG/ML IM PRN (13:21)
[2017-04-16] MEDS: BUDESONIDE/FORMETEROL FUMARATE 80/4.5 mcg INHALER IH SCH ×2 (13:24→23:28)
[2017-04-16 15:44] LABS: BASOPHIL 2.8 % (0-2.0); MCH 28.6 pg (25.7-33.7); MCHC 31.6 g/dl (32.0-35.9); MEAN CELL VOLUME 90.6 fl (80-96); MEAN PLT VOLUME 8.5 fl (7.5-11.1); NEUTROPHILS 81.4 % (42.8-82.8); PLATELET COUNT 48 K/MM3 (134-434); RDW 20.5 % (11.9-15.9); WHITE BLOOD COUNT 7.1 K/mm3 (4.0-10.0)
[2017-04-16 16:02] LABS: ALBUMIN 2.4 g/dl (3.4-5.0); ALK PHOS 129 U/L (45-117); ANION GAP 9 (8-16); BILIRUBIN,TOTAL 0.4 mg/dL (0.2-1.0); CALCIUM 7.3 mg/dL (8.5-10.1); CO2 32 mmol/L (21-32); CPK 23 IU/L (39-308); GLUCOSE,RANDOM 156 mg/dL (74-106); MAGNESIUM 1.6 mg/dL (1.8-2.4); SGOT/AST 12 U/L (15-37); SGPT/ALT 12 U/L (12-78); TOT PROT 6.2 g/dl (6.4-8.2)
[2017-04-16 16:06] LABS: INR 2.13 (0.82-1.09); PROTHROMBIN TIME (PATIENT) 24.1 SEC (9.98-11.88)
--- NOTE | 2017-04-16 16:11 | PN ---
Progress Note (short form) - Note Progress Note: Chief Complaint: Events noted, notes reviewed, resting in bed in no distress, post wound vac placement 04/15/2017 History of Present Illness: Seen and examined. Events noted, notes reviewed, resting in bed in no distress, post wound vac placement 04/15/2017 Echocardiography reveals severely reduced LV systolic function, severe TR, moderate pulmonary HTN, mild AR, severely dilated LA and RA - Current Medication List Current Medications Acetaminophen (Tylenol -) 650 mg PO Q6H PRN PRN Reason: FEVER OR PAIN Last Admin: 04/11/17 23:04 Dose: 650 mg Amino Acids (Prosource No Carb Liquid Pkt) 30 ml PO BID@0800,1730 [facility] Last Admin: 04/16/17 08:12 Dose: 30 ml Budesonide/Formoterol Fumarate (Symbicort 80/4.5mcg -) 2 puff IH BID [facility] Last Admin: 04/16/17 13:24 Dose: Not Given Carvedilol (Coreg -) 3.125 mg PO BID [facility] Last Admin: 04/16/17 10:00 Dose: Not Given Diphenhydramine HCl (Benadryl -) 25 mg PO Q6H PRN PRN Reason: FOR ITCHING Last Admin: 04/14/17 18:44 Dose: 25 mg Docusate Sodium (Colace -) 300 mg PO HS [facility] Last Admin: 04/15/17 21:35 Dose: Not Given Gabapentin (Neurontin -) 100 mg PO BID [facility] Last Admin: 04/16/17 10:00 Dose: Not Given Haloperidol (Haldol Injection (Fast Acting) -) 2 mg IM Q4H PRN PRN Reason: AGITATION Last Admin: 04/16/17 13:21 Dose: 2 mg Daptomycin 250 mg/ Sodium (Chloride) 50 mls @ 50 mls/hr IVPB Q2D@1900 [facility] PRN Reason: Protocol Last Admin: 04/14/17 22:51 Dose: 50 mls/hr Lorazepam (Ativan Injection -) 0.5 mg IVPUSH BID PRN PRN Reason: ANXIETY Last Admin: 04/14/17 13:37 Dose: 0.5 mg Midodrine (Proamatine -) 10 mg PO TID-MID [facility] Last Admin: 04/16/17 15:21 Dose: Not Given Ondansetron HCl (Zofran Injection) 4 mg IVPUSH Q6H PRN PRN Reason: NAUSEA AND/OR VOMITING Oxycodone HCl (Roxicodone -) 5 mg PO Q4H PRN PRN Reason: PAIN Last Admin: 04/15/17 15:01 Dose: 5 mg Quetiapine Fumarate (Seroquel -) 25 mg PO BID [facility] Last Admin: 04/16/17 10:00 Dose: Not Given Ranitidine HCl (Zantac Oral Solution -) 150 mg PO DAILY [facility] Last Admin: 04/16/17 10:00 Dose: Not Given Rosuvastatin Calcium (Crestor -) 5 mg PO HS [facility] Last Admin: 04/15/17 21:36 Dose: 5 mg Sevelamer Carbonate (Renvela -) 800 mg PO TIDCM [facility] Last Admin: 04/16/17 12:00 Dose: Not Given Silver Sulfadiazine (Silvadene -) 1 applic TP BID [facility] Last Admin: 04/16/17 12:45 Dose: 1 applic Sucralfate (Carafate Oral Suspension -) 0.5 gm PO BID [facility] Last Admin: 04/16/17 10:00 Dose: Not Given Warfarin Sodium (Coumadin -) 2 mg PO DAILY@1800 [facility] Last Admin: 04/15/17 17:03 Dose: 2 mg - Objective Vital Signs: Last Vital Signs Temp Pulse Resp BP Pulse Ox 97.9 F 86 18 96/60 100 04/16/17 13:40 04/16/17 15:45 04/16/17 15:45 04/16/17 15:45 04/11/17 21:00 Intake & Output 04/13/17 04/14/17 04/15/17 04/16/17 23:59 23:59 23:59 23:59 Intake Total 150 250 350 250 Balance 150 250 350 250 Weight 126 lb 11.2 oz 125 lb 11.2 oz 124 lb 140 lb 2 oz Constitutional: No Distress, Calm Neck: Supple Negative JVD Cardiovascular: S1 S2 Irregularly Irregular Grade 2/6 SM Respiratory: Diminished Gastrointestinal: Soft Benign Normal Bowel Sounds Ext: Right AKA, Left Foot Dressing in Situ Labs: CBC, BMP 04/16/17 14:10 Hepatic Panel Total Bilirubin 0.4 mg/dL (0.2-1.0) D 04/12/17 06:45 AST 11 U/L (15-37) L 04/12/17 06:45 ALT 9 U/L (12-78) L 04/12/17 06:45 Alkaline Phosphatase 103 U/L (45-117) 04/12/17 06:45 Albumin 1.8 g/dl (3.4-5.0) L 04/12/17 06:45 INR, PTT INR 2.13 (0.82-1.09) H 04/16/17 14:10 Fibrinogen 296.0 mg/dL (238-498) D 03/30/17 06:10 Assessment/Plan ASSESSMENT: 1. PAD post right AKA and left toe amputation, occluded left SFA post angioplasty/stent, post wound vac placement 04/15/2017, for planned left BKA if non-healing 2. CAD angina pectoris 3. Dilated cardiomyopathy with chronic class I-II NYHA classification LV systolic failure, compensated/ euvolemic 4. Persistent atrial fibrillation [id number] score of 4 on A/C therapy with Coumadin and with therapeutic INR 5. Severe TR with pulmonary HTN 6. HTN 7. ESRD on HD 8. History of DVT 9. Anemia 10. Thrombocytopenia PLAN: 1. Continue Coreg, hemodynamics permitting 2. Continue Coumadin therapy with caution and close monitoring of CBC and INR 3. Continue Crestor 4. Continue Midodrine therapy as ordered 5. HD as per renal service Balaji Hess M.D.
[2017-04-16] MEDS: WARFARIN NA 2 MG TABLET (UD) PO SCH (17:53)
[2017-04-16] MEDS: oxyCODONE HCL 5 MG TABLET PO PRN (17:58)
[2017-04-16] MEDS: DAPTOMYCIN 250 MG in SODIUM CHLORIDE 50 ML IVPB SCH (19:40)
[2017-04-16] MEDS: DOCUSATE SODIUM 100 MG CAPSULE (FP) PO SCH (23:25)
[2017-04-16] MEDS: ROSUVASTATIN CA 5 MG TABLET (FP) PO SCH (23:26)
[2017-04-17] MEDS: diphenhydrAMINE HCL 25 MG CAPSULE (FP) PO PRN (08:13)
[2017-04-17] MEDS: AMINO ACIDS/PROTEIN HYDROLYS 30 ML LIQUID.PKT PO SCH ×2 (08:13→17:39)
--- NOTE | 2017-04-17 09:03 | PN ---
Progress Note (short form) - Note Progress Note: Renal Follow up for ESRD on HD Pt seen and examined at the bedside awake and alert no sob, chest pain has some pain in his lower back no N/V s/p dialysis yesterday Vital Signs Temperature 97.8 F 04/16/17 19:48 Pulse Rate 95 H 04/16/17 19:48 Respiratory Rate 20 04/16/17 21:00 Blood Pressure 123/68 04/16/17 19:48 O2 Sat by Pulse Oximetry (%) 100 04/11/17 21:00 Intake & Output 04/14/17 04/15/17 04/16/17 04/17/17 23:59 23:59 23:59 23:59 Intake Total 250 350 820 Balance 250 350 820 Weight 57.017 kg 56.245 kg 63.56 kg NAD RRR CTA (anterior) Left leg in brace s/p amputation CBC, BMP 04/16/17 14:10 Current Medications Acetaminophen (Tylenol -) 650 mg PO Q6H PRN PRN Reason: FEVER OR PAIN Last Admin: 04/11/17 23:04 Dose: 650 mg Amino Acids (Prosource No Carb Liquid Pkt) 30 ml PO BID@0800,1730 [facility] Last Admin: 04/17/17 08:13 Dose: 30 ml Budesonide/Formoterol Fumarate (Symbicort 80/4.5mcg -) 2 puff IH BID [facility] Last Admin: 04/16/17 23:28 Dose: 2 puff Carvedilol (Coreg -) 3.125 mg PO BID [facility] Last Admin: 04/16/17 23:25 Dose: 3.125 mg Diphenhydramine HCl (Benadryl -) 25 mg PO Q6H PRN PRN Reason: FOR ITCHING Last Admin: 04/17/17 08:13 Dose: 25 mg Docusate Sodium (Colace -) 300 mg PO HS [facility] Last Admin: 04/16/17 23:25 Dose: 300 mg Gabapentin (Neurontin -) 100 mg PO BID [facility] Last Admin: 04/16/17 23:26 Dose: 100 mg Haloperidol (Haldol Injection (Fast Acting) -) 2 mg IM Q4H PRN PRN Reason: AGITATION Last Admin: 04/16/17 13:21 Dose: 2 mg Daptomycin 250 mg/ Sodium (Chloride) 50 mls @ 50 mls/hr IVPB Q2D@1900 [facility] PRN Reason: Protocol Last Admin: 04/16/17 19:40 Dose: 50 mls/hr Lorazepam (Ativan Injection -) 0.5 mg IVPUSH BID PRN PRN Reason: ANXIETY Last Admin: 04/14/17 13:37 Dose: 0.5 mg Midodrine (Proamatine -) 10 mg PO TID-MID [facility] Last Admin: 04/16/17 17:52 Dose: Not Given Ondansetron HCl (Zofran Injection) 4 mg IVPUSH Q6H PRN PRN Reason: NAUSEA AND/OR VOMITING Oxycodone HCl (Roxicodone -) 5 mg PO Q4H PRN PRN Reason: PAIN Last Admin: 04/16/17 17:58 Dose: 5 mg Quetiapine Fumarate (Seroquel -) 25 mg PO BID [facility] Last Admin: 04/16/17 23:26 Dose: 25 mg Ranitidine HCl (Zantac Oral Solution -) 150 mg PO DAILY [facility] Last Admin: 04/16/17 17:54 Dose: 150 mg Rosuvastatin Calcium (Crestor -) 5 mg PO HS [facility] Last Admin: 04/16/17 23:26 Dose: 5 mg Silver Sulfadiazine (Silvadene -) 1 applic TP BID [facility] Last Admin: 04/16/17 23:29 Dose: 1 applic Sucralfate (Carafate Oral Suspension -) 0.5 gm PO BID [facility] Last Admin: 04/16/17 23:27 Dose: 0.5 gm Warfarin Sodium (Coumadin -) 2 mg PO DAILY@1800 [facility] Last Admin: 04/16/17 17:53 Dose: 2 mg 77 year old gentleman with PMhx of ESRD on HD (TTS), Hypertension, DVT, PVD s/p right AKA and left toe amputation who presented to the ED with complaints of pain in his left foot and admitted fro soft tissue infection of the foot with concern for worsening ischemic disease. #ESRD on HD s/p dialysis yesterday, bath was changed to 3k because of low potassium repeat labs ordered for yesterday afternoon but not collected, todays labs collected, results pending maintain on regular diet because of low K will need to supplement K if less then 3.5 today #Hypophosphatemia dialysis efficacy reduced yesterday b/c of low phos levels binders discontinued repeat level this am pending will supplement if less then 2 #Wound/Ischemia of left LE Vascular follow up continue Dapto and zosyn as per ID #Acute on Chronic Anemia continue IVANIA with HD no indication for transfusion at this time Thank you Raghu Boogie DO Problem List - Problems (1) Critical lower limb ischemia Code(s): I99.8 - OTHER DISORDER OF CIRCULATORY SYSTEM (2) Open wnd foot-complicated Code(s): S91.309A - UNSPECIFIED OPEN WOUND, UNSPECIFIED FOOT, INITIAL ENCOUNTER (3) HTN (hypertension) Code(s): I10 - ESSENTIAL (PRIMARY) HYPERTENSION Qualifiers: Hypertension type: essential hypertension Qualified Code(s): I10 - Essential (primary) hypertension (4) ESRD (end stage renal disease) Code(s): N18.6 - END STAGE RENAL DISEASE (5) Anemia Code(s): D64.9 - ANEMIA, UNSPECIFIED
[2017-04-17 09:09] LABS: INR 2.3 (0.82-1.09)
[2017-04-17 09:34] LABS: ANION GAP 9 (8-16); CALCIUM 7.9 mg/dL (8.5-10.1); CO2 30 mmol/L (21-32); CREATININE 6.6 mg/dL (0.7-1.3); GLUCOSE,RANDOM 79 mg/dL (74-106); PHOSPHOROUS 3.3 mg/dL (2.5-4.9)
[2017-04-17] MEDS ORDERED: PT OWN MED DRAWER 7, Y5N ONE ×2 (09:50→20:47)
[2017-04-17] MEDS: SUCRALFATE 1 GM/10 ML UNIT DOSE CUPS PO SCH ×2 (09:53→21:25)
[2017-04-17] MEDS: CARVEDILOL 3.125 MG TABLET (FP) PO SCH ×2 (09:53→21:24)
[2017-04-17] MEDS: BUDESONIDE/FORMETEROL FUMARATE 80/4.5 mcg INHALER IH SCH ×2 (09:54→21:25)
[2017-04-17] MEDS: RANITIDINE HCL 150 MG/10 ML UNIT-DOSE PO SCH (09:54)
[2017-04-17] MEDS: QUEtiapine FUMARATE 25 MG TABLET (FP) PO SCH ×2 (09:54→21:24)
[2017-04-17] MEDS: GABAPENTIN 100 MG CAPSULE (FP) PO SCH ×2 (09:54→21:24)
[2017-04-17] MEDS: MIDODRINE HCL 5 MG TABLET PO SCH ×3 (09:54→17:39)
--- NOTE | 2017-04-17 11:40 | PN ---
Progress Note (short form) - Note Progress Note: Chief Complaint: Events noted, notes reviewed, resting in bed in no distress awake and alert in no distress, wound vac placement in situ History of Present Illness: Seen and examined. Events noted, notes reviewed, resting in bed in no distress awake and alert in no distress, wound vac placement in situ Echocardiography reveals severely reduced LV systolic function, severe TR, moderate pulmonary HTN, mild AR, severely dilated LA and RA - Current Medication List Current Medications Acetaminophen (Tylenol -) 650 mg PO Q6H PRN PRN Reason: FEVER OR PAIN Last Admin: 04/11/17 23:04 Dose: 650 mg Amino Acids (Prosource No Carb Liquid Pkt) 30 ml PO BID@0800,1730 [facility] Last Admin: 04/17/17 08:13 Dose: 30 ml Budesonide/Formoterol Fumarate (Symbicort 80/4.5mcg -) 2 puff IH BID [facility] Last Admin: 04/17/17 09:54 Dose: 2 puff Carvedilol (Coreg -) 3.125 mg PO BID [facility] Last Admin: 04/17/17 09:53 Dose: 3.125 mg Diphenhydramine HCl (Benadryl -) 25 mg PO Q6H PRN PRN Reason: FOR ITCHING Last Admin: 04/17/17 08:13 Dose: 25 mg Docusate Sodium (Colace -) 300 mg PO HS [facility] Last Admin: 04/16/17 23:25 Dose: 300 mg Gabapentin (Neurontin -) 100 mg PO BID [facility] Last Admin: 04/17/17 09:54 Dose: 100 mg Haloperidol (Haldol Injection (Fast Acting) -) 2 mg IM Q4H PRN PRN Reason: AGITATION Last Admin: 04/16/17 13:21 Dose: 2 mg Daptomycin 250 mg/ Sodium (Chloride) 50 mls @ 50 mls/hr IVPB Q2D@1900 [facility] PRN Reason: Protocol Last Admin: 04/16/17 19:40 Dose: 50 mls/hr Lorazepam (Ativan Injection -) 0.5 mg IVPUSH BID PRN PRN Reason: ANXIETY Last Admin: 04/14/17 13:37 Dose: 0.5 mg Midodrine (Proamatine -) 10 mg PO TID-MID [facility] Last Admin: 12/03/17 09:54 Dose: 10 mg Ondansetron HCl (Zofran Injection) 4 mg IVPUSH Q6H PRN PRN Reason: NAUSEA AND/OR VOMITING Oxycodone HCl (Roxicodone -) 5 mg PO Q4H PRN PRN Reason: PAIN Last Admin: 04/16/17 17:58 Dose: 5 mg Quetiapine Fumarate (Seroquel -) 25 mg PO BID [facility] Last Admin: 04/17/17 09:54 Dose: 25 mg Ranitidine HCl (Zantac Oral Solution -) 150 mg PO DAILY [facility] Last Admin: 04/17/17 09:54 Dose: 150 mg Rosuvastatin Calcium (Crestor -) 5 mg PO HS [facility] Last Admin: 04/16/17 23:26 Dose: 5 mg Silver Sulfadiazine (Silvadene -) 1 applic TP BID [facility] Last Admin: 04/16/17 23:29 Dose: 1 applic Sucralfate (Carafate Oral Suspension -) 0.5 gm PO BID [facility] Last Admin: 04/17/17 09:53 Dose: 0.5 gm Warfarin Sodium (Coumadin -) 2 mg PO DAILY@1800 [facility] Last Admin: 04/16/17 17:53 Dose: 2 mg - Objective Vital Signs: Last Vital Signs Temp Pulse Resp BP Pulse Ox 97.6 F 73 18 101/54 100 04/17/17 08:15 04/17/17 08:15 04/17/17 08:15 04/17/17 08:15 04/11/17 21:00 Intake & Output 04/14/17 04/15/17 04/16/17 04/17/17 23:59 23:59 23:59 23:59 Intake Total 250 350 820 20 Balance 250 350 820 20 Weight 125 lb 11.2 oz 124 lb 140 lb 2 oz Constitutional: No Distress, Calm Neck: Supple Negative JVD Cardiovascular: S1 S2 Irregularly Irregular Grade 2/6 SM Respiratory: Diminished Gastrointestinal: Soft Benign Normal Bowel Sounds Ext: Right AKA, Left Foot Dressing in Situ Labs: CBC, BMP 04/16/17 14:10 04/17/17 08:15 INR, PTT INR 2.30 (0.82-1.09) H 04/17/17 08:15 Fibrinogen 296.0 mg/dL (238-498) D 03/30/17 06:10 Assessment/Plan ASSESSMENT: 1. PAD post right AKA and left toe amputation, occluded left SFA post angioplasty/stent, post wound vac placement 04/15/2017, for planned left BKA if non-healing 2. CAD angina pectoris 3. Dilated cardiomyopathy with chronic class I-II NYHA classification LV systolic failure, compensated/ euvolemic 4. Persistent atrial fibrillation [id number] score of 4 on A/C therapy with Coumadin and with therapeutic INR 5. Severe TR with pulmonary HTN 6. HTN 7. ESRD on HD 8. History of DVT 9. Anemia 10. Thrombocytopenia PLAN: 1. Continue Coreg, hemodynamics permitting 2. Continue Coumadin therapy with caution and close monitoring of CBC and INR, maintain INR 2-3 3. Continue Crestor 4. Continue Midodrine therapy as ordered 5. HD as per renal service Balaji Hess M.D.
[2017-04-17] MEDS: SILVER SULFADIAZINE 1% TOP CREAM 400 GM JAR TP SCH ×2 (14:00→21:52)
--- NOTE | 2017-04-17 15:39 | PN ---
Progress Note, Physician - Current Medication List Current Medications: Active Medications Acetaminophen (Tylenol -) 650 mg PO Q6H PRN PRN Reason: FEVER OR PAIN Last Admin: 04/11/17 23:04 Dose: 650 mg Amino Acids (Prosource No Carb Liquid Pkt) 30 ml PO BID@0800,1730 [facility] Last Admin: 04/17/17 08:13 Dose: 30 ml Budesonide/Formoterol Fumarate (Symbicort 80/4.5mcg -) 2 puff IH BID [facility] Last Admin: 04/17/17 09:54 Dose: 2 puff Carvedilol (Coreg -) 3.125 mg PO BID [facility] Last Admin: 04/17/17 09:53 Dose: 3.125 mg Diphenhydramine HCl (Benadryl -) 25 mg PO Q6H PRN PRN Reason: FOR ITCHING Last Admin: 04/17/17 08:13 Dose: 25 mg Docusate Sodium (Colace -) 300 mg PO HS [facility] Last Admin: 04/16/17 23:25 Dose: 300 mg Gabapentin (Neurontin -) 100 mg PO BID [facility] Last Admin: 04/17/17 09:54 Dose: 100 mg Haloperidol (Haldol Injection (Fast Acting) -) 2 mg IM Q4H PRN PRN Reason: AGITATION Last Admin: 04/16/17 13:21 Dose: 2 mg Daptomycin 250 mg/ Sodium (Chloride) 50 mls @ 50 mls/hr IVPB Q2D@1900 [facility] PRN Reason: Protocol Last Admin: 04/16/17 19:40 Dose: 50 mls/hr Lorazepam (Ativan Injection -) 0.5 mg IVPUSH BID PRN PRN Reason: ANXIETY Last Admin: 04/14/17 13:37 Dose: 0.5 mg Midodrine (Proamatine -) 10 mg PO TID-MID [facility] Last Admin: 04/17/17 14:00 Dose: 10 mg Ondansetron HCl (Zofran Injection) 4 mg IVPUSH Q6H PRN PRN Reason: NAUSEA AND/OR VOMITING Quetiapine Fumarate (Seroquel -) 25 mg PO BID [facility] Last Admin: 04/17/17 09:54 Dose: 25 mg Ranitidine HCl (Zantac Oral Solution -) 150 mg PO DAILY [facility] Last Admin: 04/17/17 09:54 Dose: 150 mg Rosuvastatin Calcium (Crestor -) 5 mg PO HS [facility] Last Admin: 04/16/17 23:26 Dose: 5 mg Silver Sulfadiazine (Silvadene -) 1 applic TP BID [facility] Last Admin: 04/17/17 14:00 Dose: 1 applic Sucralfate (Carafate Oral Suspension -) 0.5 gm PO BID [facility] Last Admin: 04/17/17 09:53 Dose: 0.5 gm Warfarin Sodium (Coumadin -) 2 mg PO DAILY@1800 [facility] Last Admin: 04/16/17 17:53 Dose: 2 mg - Objective Vital Signs: Vital Signs Temperature 97.6 F 04/17/17 08:15 Pulse Rate 73 04/17/17 08:15 Respiratory Rate 18 04/17/17 08:15 Blood Pressure 101/54 04/17/17 08:15 O2 Sat by Pulse Oximetry (%) 100 04/11/17 21:00 Constitutional: Yes: No Distress Cardiovascular: Yes: Regular Rate and Rhythm Respiratory: Yes: Regular Gastrointestinal: Yes: Normal Bowel Sounds, Soft Extremities: Yes: Amputation (LT BKA site with wound vac) Integumentary: Yes: WNL Labs: CBC, BMP 04/16/17 14:10 04/17/17 08:15 INR, PTT INR 2.30 (0.82-1.09) H 04/17/17 08:15 Fibrinogen 296.0 mg/dL (238-498) D 03/30/17 06:10 Problem List - Problems (1) Atrial fibrillation Code(s): I48.91 - UNSPECIFIED ATRIAL FIBRILLATION Qualifiers: Atrial fibrillation type: persistent Qualified Code(s): I48.1 - Persistent atrial fibrillation (2) Critical lower limb ischemia Code(s): I99.8 - OTHER DISORDER OF CIRCULATORY SYSTEM (3) HTN (hypertension) Code(s): I10 - ESSENTIAL (PRIMARY) HYPERTENSION Qualifiers: Hypertension type: essential hypertension Qualified Code(s): I10 - Essential (primary) hypertension (4) ESRD (end stage renal disease) Code(s): N18.6 - END STAGE RENAL DISEASE (5) HLD (hyperlipidemia) Code(s): E78.5 - HYPERLIPIDEMIA, UNSPECIFIED Qualifiers: Hyperlipidemia type: pure hypercholesterolemia Qualified Code(s): E78.00 - Pure hypercholesterolemia, unspecified (6) Liver disease, chronic, with cirrhosis Code(s): K74.60 - UNSPECIFIED CIRRHOSIS OF LIVER; K76.9 - LIVER DISEASE, UNSPECIFIED (7) Open wnd foot-complicated Code(s): S91.309A - UNSPECIFIED OPEN WOUND, UNSPECIFIED FOOT, INITIAL ENCOUNTER (8) Peripheral arterial disease Code(s): I73.9 - PERIPHERAL VASCULAR DISEASE, UNSPECIFIED (9) S/P AKA (above knee amputation) Code(s): Z89.619 - ACQUIRED ABSENCE OF UNSPECIFIED LEG ABOVE KNEE Qualifiers: Laterality: right Qualified Code(s): Z89.611 - Acquired absence of right leg above knee Assessment/Plan Lt SFA occlusion s/p Lt BKA, wound site with VRE infection, with necrosis, now s /p debridement, wound vac on - cont Daptomycin for 3 more doses -cont. wound care, if site doesnt heel, may need AKA pt currently stable
[2017-04-17] MEDS: WARFARIN NA 2 MG TABLET (UD) PO SCH (17:39)
[2017-04-17] MEDS ORDERED: oxyCODONE HCL 5 MG TABLET PO PRN (18:13)
[2017-04-17] MEDS: DOCUSATE SODIUM 100 MG CAPSULE (FP) PO SCH (21:24)
[2017-04-17] MEDS: ROSUVASTATIN CA 5 MG TABLET (FP) PO SCH (21:24)
[2017-04-18 08:38] LABS: BASOPHIL 1.3 % (0-2.0); EOSINOPHIL 3.6 % (0-4.5); MCH 28.7 pg (25.7-33.7); MEAN CELL VOLUME 89.6 fl (80-96); MEAN PLT VOLUME 7.5 fl (7.5-11.1); NEUTROPHILS 79.1 % (42.8-82.8); PLATELET COUNT 62 K/MM3 (134-434); RDW 20.3 % (11.9-15.9); WHITE BLOOD COUNT 6.1 K/mm3 (4.0-10.0)
[2017-04-18 09:22] LABS: ANION GAP 10 (8-16); CALCIUM 8.4 mg/dL (8.5-10.1); CO2 31 mmol/L (21-32); GLUCOSE,RANDOM 84 mg/dL (74-106); MAGNESIUM 2.3 mg/dL (1.8-2.4); PHOSPHOROUS 4.8 mg/dL (2.5-4.9)
[2017-04-18 09:30] LABS: INR 2.45 (0.82-1.09); PROTHROMBIN TIME (PATIENT) 27.7 SEC (9.98-11.88)
[2017-04-18 09:45] LABS: CREATININE 7.7 mg/dL (0.7-1.3)
--- NOTE | 2017-04-18 10:24 | PN ---
Progress Note (short form) - Note Progress Note: Vascular surgery Patbea seen and examined at bedside Wound VAC in place with no leak. sersangenous drainage Patient is afebrile AVSS Wound open with exposed bone muscle is pink with some bleeding skin surrounding wound is dusky will try to salvage limb. If does not heal will need AKA No Leukocytosis Trend CBC as trending down Continue ABx per ID Continue Wound VAC M/W/F Continue other medical management per Medicine Case discussed with Dr. Villa from vascular surgery
[2017-04-18] MEDS: SUCRALFATE 1 GM/10 ML UNIT DOSE CUPS PO SCH (10:55)
[2017-04-18] MEDS: RANITIDINE HCL 150 MG/10 ML UNIT-DOSE PO SCH (10:55)
[2017-04-18] MEDS: GABAPENTIN 100 MG CAPSULE (FP) PO SCH (10:55)
[2017-04-18] MEDS: QUEtiapine FUMARATE 25 MG TABLET (FP) PO SCH (10:55)
[2017-04-18] MEDS: MIDODRINE HCL 5 MG TABLET PO SCH ×3 (10:55→18:30)
[2017-04-18] MEDS: CARVEDILOL 3.125 MG TABLET (FP) PO SCH (10:56)
[2017-04-18] MEDS: AMINO ACIDS/PROTEIN HYDROLYS 30 ML LIQUID.PKT PO SCH ×2 (10:56→18:30)
[2017-04-18] MEDS: SILVER SULFADIAZINE 1% TOP CREAM 400 GM JAR TP SCH (10:57)
[2017-04-18] MEDS: BUDESONIDE/FORMETEROL FUMARATE 80/4.5 mcg INHALER IH SCH (10:57)
--- NOTE | 2017-04-18 11:08 | PN ---
Progress Note (short form) - Note Progress Note: No acute events overnight. VAC in place. Breathing non-labored. Intake & Output 04/15/17 04/16/17 04/17/17 04/18/17 23:59 23:59 23:59 23:59 Intake Total 350 820 120 Balance 350 820 120 Weight 124 lb 140 lb 2 oz 122 lb 11.2 oz Last Vital Signs Temp Pulse Resp BP Pulse Ox 97.6 F 69 18 113/55 98 04/18/17 06:00 04/18/17 06:00 04/18/17 06:00 04/17/17 22:00 04/17/17 21:00 Active Medications Acetaminophen (Tylenol -) 650 mg PO Q6H PRN PRN Reason: FEVER OR PAIN Last Admin: 04/11/17 23:04 Dose: 650 mg Amino Acids (Prosource No Carb Liquid Pkt) 30 ml PO BID@0800,1730 [facility] Last Admin: 04/18/17 10:56 Dose: 30 ml Budesonide/Formoterol Fumarate (Symbicort 80/4.5mcg -) 2 puff IH BID [facility] Last Admin: 04/18/17 10:57 Dose: 2 puff Carvedilol (Coreg -) 3.125 mg PO BID [facility] Last Admin: 04/18/17 10:56 Dose: 3.125 mg Diphenhydramine HCl (Benadryl -) 25 mg PO Q6H PRN PRN Reason: FOR ITCHING Last Admin: 04/17/17 08:13 Dose: 25 mg Docusate Sodium (Colace -) 300 mg PO HS [facility] Last Admin: 04/17/17 21:24 Dose: 300 mg Gabapentin (Neurontin -) 100 mg PO BID [facility] Last Admin: 04/18/17 10:55 Dose: 100 mg Haloperidol (Haldol Injection (Fast Acting) -) 2 mg IM Q4H PRN PRN Reason: AGITATION Last Admin: 04/16/17 13:21 Dose: 2 mg Lorazepam (Ativan Injection -) 0.5 mg IVPUSH BID PRN PRN Reason: ANXIETY Last Admin: 04/14/17 13:37 Dose: 0.5 mg Midodrine (Proamatine -) 10 mg PO TID-MID [facility] Last Admin: 04/18/17 10:55 Dose: 10 mg Ondansetron HCl (Zofran Injection) 4 mg IVPUSH Q6H PRN PRN Reason: NAUSEA AND/OR VOMITING Oxycodone HCl (Roxicodone -) 5 mg PO Q6H PRN PRN Reason: PAIN Last Admin: 04/17/17 18:30 Dose: 5 mg Quetiapine Fumarate (Seroquel -) 25 mg PO BID [facility] Last Admin: 04/18/17 10:55 Dose: 25 mg Ranitidine HCl (Zantac Oral Solution -) 150 mg PO DAILY [facility] Last Admin: 04/18/17 10:55 Dose: 150 mg Rosuvastatin Calcium (Crestor -) 5 mg PO HS [facility] Last Admin: 04/17/17 21:24 Dose: 5 mg Silver Sulfadiazine (Silvadene -) 1 applic TP BID [facility] Last Admin: 04/18/17 10:57 Dose: 1 applic Sucralfate (Carafate Oral Suspension -) 0.5 gm PO BID [facility] Last Admin: 04/18/17 10:55 Dose: 0.5 gm Warfarin Sodium (Coumadin -) 2 mg PO DAILY@1800 [facility] Last Admin: 04/17/17 17:39 Dose: 2 mg Constitutional: Yes: Confused, NAD Eyes: Yes: Conjunctiva Clear, EOM Intact HENT: Yes: Atraumatic, Normocephalic Neck: Yes: Supple, Trachea Midline Cardiovascular: Yes: Regular Rate and Rhythm Respiratory: Yes: few basilar Rhonchi ...Clubbing: No Gastrointestinal: Yes: Normal Bowel Sounds, Soft. No: Tenderness Extremities: Yes: Bilateral LE amputation, (+) VAC Edema: No Neurological: Yes: Confused Labs: Laboratory Results - last 24 hr 04/18/17 04/18/17 04/18/17 08:10 08:10 08:10 WBC 6.1 RBC 3.46 L Hgb 9.9 L D Hct 31.1 L MCV 89.6 MCH 28.7 MCHC 32.0 RDW 20.3 H Plt Count 62 L D MPV 7.5 D Neutrophils % 79.1 Lymphocytes % 8.0 D Monocytes % 8.0 Eosinophils % 3.6 Basophils % 1.3 PT with INR 27.70 H INR 2.45 H Sodium 141 Potassium 5.0 Chloride 100 Carbon Dioxide 31 Anion Gap 10 BUN 77 H D Creatinine 7.7 H* Random Glucose 84 Calcium 8.4 L Phosphorus 4.8 D Magnesium 2.3 D Problem List - Problems (1) Open wnd foot-complicated Code(s): S91.309A - UNSPECIFIED OPEN WOUND, UNSPECIFIED FOOT, INITIAL ENCOUNTER (2) Peripheral arterial disease Code(s): I73.9 - PERIPHERAL VASCULAR DISEASE, UNSPECIFIED (3) Anemia Code(s): D64.9 - ANEMIA, UNSPECIFIED (4) Atrial fibrillation Code(s): I48.91 - UNSPECIFIED ATRIAL FIBRILLATION Qualifiers: Atrial fibrillation type: persistent Qualified Code(s): I48.1 - Persistent atrial fibrillation; I48.1 - Persistent atrial fibrillation; I48.1 - Persistent atrial fibrillation; I48.1 - Persistent atrial fibrillation (5) ESRD (end stage renal disease) Code(s): N18.6 - END STAGE RENAL DISEASE (6) HLD (hyperlipidemia) Code(s): E78.5 - HYPERLIPIDEMIA, UNSPECIFIED Qualifiers: Hyperlipidemia type: pure hypercholesterolemia Qualified Code(s): E78.00 - Pure hypercholesterolemia, unspecified; E78.00 - Pure hypercholesterolemia, unspecified; E78.00 - Pure hypercholesterolemia, unspecified; E78.0 - Pure hypercholesterolemia (7) HTN (hypertension) Code(s): I10 - ESSENTIAL (PRIMARY) HYPERTENSION Qualifiers: Hypertension type: essential hypertension Qualified Code(s): I10 - Essential (primary) hypertension; I10 - Essential (primary) hypertension; I10 - Essential (primary) hypertension (8) S/P AKA (above knee amputation) Code(s): Z89.619 - ACQUIRED ABSENCE OF UNSPECIFIED LEG ABOVE KNEE Qualifiers: Laterality: right Qualified Code(s): Z89.611 - Acquired absence of right leg above knee; Z89.611 - Acquired absence of right leg above knee; Z89.611 - Acquired absence of right leg above knee (9) Systolic dysfunction, left ventricle Code(s): I51.9 - HEART DISEASE, UNSPECIFIED Assessment/Plan Foot Wound Infection Peripheral Artery Disease ESRD on HD Atrial Fibrillation Severe LV Systolic Dysfunction Pulmonary HTN Supratherapeutic INR Thrombocytopenia AAA Liver Cirrhosis 2 cm right mid lung zone irregular density along the fissure: (?) inflammatory versus mass s/p R AKA VAC / Local wound care per surgery HD per Renal Normal transfusion thresholds O2 as needed AC Will need close short term outpatient CT follow up of lung nodule. Dr Braun
--- NOTE | 2017-04-18 11:50 | PN ---
Physical Exam: SUBJECTIVE: Patient seen and examined at the bedside. OBJECTIVE: Vital Signs Period Temp Pulse Resp BP Sys/Coleman Pulse Ox Last 24 Hr 97.1 F-98.0 F 69-78 18-18 107-118/51-55 98 GENERAL: In no acute distress HEAD: Normal with no signs of trauma. NECK: Normal range of motion, supple without lymphadenopathy, JVD, or masses. LUNGS: Breath sounds diminished bilaterally, no wheezing, +fine crackles on right mid lobe, oxygen stable on room air HEART: irregular heart rate, hx of afib ABDOMEN: Soft, nontender, not distended, normoactive bowel sounds, no guarding, no rebound, no masses. No hepatomegaly or splenomegaly. 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, currently wrapped , on wound Vac, with bloody drainage wound cultures + VRE Laboratory Results - last 24 hr 04/18/17 04/18/17 04/18/17 08:10 08:10 08:10 WBC 6.1 RBC 3.46 L Hgb 9.9 L D Hct 31.1 L MCV 89.6 MCH 28.7 MCHC 32.0 RDW 20.3 H Plt Count 62 L D MPV 7.5 D Neutrophils % 79.1 Lymphocytes % 8.0 D Monocytes % 8.0 Eosinophils % 3.6 Basophils % 1.3 PT with INR 27.70 H INR 2.45 H Sodium 141 Potassium 5.0 Chloride 100 Carbon Dioxide 31 Anion Gap 10 BUN 77 H D Creatinine 7.7 H* Random Glucose 84 Calcium 8.4 L Phosphorus 4.8 D Magnesium 2.3 D Active Medications Generic Name Dose Route Start Last Admin Trade Name Freq PRN Reason Stop Dose Admin Acetaminophen 650 mg 04/08/17 12:41 04/11/17 23:04 Tylenol - PO 650 mg Q6H PRN Administration FEVER OR PAIN Amino Acids 30 ml 04/02/17 11:00 04/18/17 10:56 Prosource No Carb Liquid Pkt PO 30 ml BID@0800,1730 OTIS Administration Budesonide/Formoterol Fumarate 2 puff 04/01/17 22:00 04/18/17 10:57 Symbicort 80/4.5mcg - IH 2 puff BID OTIS Administration Carvedilol 3.125 mg 04/01/17 22:00 04/18/17 10:56 Coreg - PO 3.125 mg BID OTIS Administration Diphenhydramine HCl 25 mg 04/01/17 17:31 04/17/17 08:13 Benadryl - PO 25 mg Q6H PRN Administration FOR ITCHING Docusate Sodium 300 mg 04/01/17 22:00 04/17/17 21:24 Colace - PO 300 mg HS OTIS Administration Gabapentin 100 mg 04/06/17 10:00 04/18/17 10:55 Neurontin - PO 100 mg BID OTIS Administration Haloperidol 2 mg 04/04/17 16:53 04/16/17 13:21 Haldol Injection (Fast Acting) - IM 2 mg Q4H PRN Administration AGITATION Lorazepam 0.5 mg 04/14/17 13:16 04/14/17 13:37 Ativan Injection - IVPUSH 0.5 mg BID PRN Administration ANXIETY Midodrine 10 mg 04/01/17 18:00 04/18/17 10:55 Proamatine - PO 10 mg TID-MID OTIS Administration Ondansetron HCl 4 mg 04/01/17 17:31 Zofran Injection IVPUSH Q6H PRN NAUSEA AND/OR VOMITING Oxycodone HCl 5 mg 04/17/17 18:13 04/17/17 18:30 Roxicodone - PO 5 mg Q6H PRN Administration PAIN Quetiapine Fumarate 25 mg 04/02/17 10:50 04/18/17 10:55 Seroquel - PO 25 mg BID OTIS Administration Ranitidine HCl 150 mg 04/02/17 10:00 04/18/17 10:55 Zantac Oral Solution - PO 150 mg DAILY OTIS Administration Rosuvastatin Calcium 5 mg 04/01/17 22:00 04/17/17 21:24 Crestor - PO 5 mg HS OTIS Administration Silver Sulfadiazine 1 applic 04/06/17 13:45 04/18/17 10:57 Silvadene - TP 1 applic BID OTIS Administration Sucralfate 0.5 gm 04/01/17 22:00 04/18/17 10:55 Carafate Oral Suspension - PO 0.5 gm BID OTIS Administration Warfarin Sodium 2 mg 04/15/17 12:06 04/17/17 17:39 Coumadin - PO 2 mg DAILY@1800 [facility] Administration ASSESSMENT/PLAN: Patient is a 77 year old male with a significant past medical history of ESRD HD (T,,), atrial fib, hypertension, DVT, right AKA, s/p left 2nd digit amputation lower extremity. He presented to the ED on 03/14/2017 for critical ischemia of left lower extremity. Patient is Slovenian speaking only and family reports having increased swelling to his left lower extremity. Pt comes with right AKA and a left middle toe amputation that was performed in [facility], where pt has been living for the past several years. Patient has medical records from [facility] in his file. Patient had a left BKA on 03/31/2017 for septic left foot/leg. Left BKA wound + VRE, now on Daptomycin as per ID. Vascular/ID: Sepsis secondary to ischemic Left foot, BKA on 04/01, resolved Vanco and Zosyn stopped on 04/04/2017 Previously had drainage from left BKA wound: +VRE, now on wound vac, may need AKA if site does not heal WBC stable, no fevers Started on Daptomycin (04/10> ) as per ID Monitor vitals, fevers, reculture if continues to spike fevers Hematology: Coagulopathy (prolonged PTT/PT) Thrombocytopenia, s/p platelet infusion on 04/01 Neuro: Acute Metabolic Encephalopathy likely secondary to septic left foot, improving S/P left BKA, see vascular note above. Renal: ESRD, HD (on TThS) via right upper arm fistula Cardiology: Therapeutic INR for Atrial Fibrillation Coumadin 2mg daily Hypertension, chronic Parameters added to BP meds CAD Coreg 3.125mg BID, Crestor 5mg HS Psyche: Agitation, delirium Haldol, Seroquel 25mg BID Hematology: Anemia, likely chronic 2/2 to ESRD Monitor hmg/hct Heme following F.E.N. Fluids: tolerating PO Electrolytes: monitor Nutrition: renal diet Prophylaxis: GI: deferred DVT: Coumadin Disposition: Requires inpatient hospitalization. Full code. Visit type - Emergency Visit Emergency Visit: Yes ED Registration Date: 03/14/17 Care time: The patient presented to the Emergency Department on the above date and was hospitalized for further evaluation of their emergent condition. - New Patient This patient is new to me today: No - Critical Care Critical Care patient: No - Discharge Referral Referred to [facility] Med P.C.: No
--- NOTE | 2017-04-18 15:47 | PN ---
Progress Note (short form) - Note Progress Note: [facility] Pt seen and examined. Left bka stump healing well. Clean and pink. Cont vac. Can be dC to NH. Return to wound care clinic in one week for wound care. Robert rosas DO
--- NOTE | 2017-04-18 16:21 | PN ---
Progress Note (short form) - Note Progress Note: Renal Follow up for ESRD on HD Pt seen and examined at the bedside awake and alert reports back pain no sob, chest pain last dialysis was Tuesday Vital Signs Temperature 97.6 F 04/18/17 06:00 Pulse Rate 69 04/18/17 06:00 Respiratory Rate 18 04/18/17 06:00 Blood Pressure 113/55 04/17/17 22:00 O2 Sat by Pulse Oximetry (%) 98 04/17/17 21:00 Intake & Output 04/15/17 04/16/17 04/17/17 04/18/17 23:59 23:59 23:59 23:59 Intake Total 350 820 120 Balance 350 820 120 Weight 56.245 kg 63.56 kg 55.656 kg NAD RRR CTA (anterior) Left leg in brace s/p amputation CBC, BMP 04/18/17 08:10 04/18/17 08:10 Current Medications Acetaminophen (Tylenol -) 650 mg PO Q6H PRN PRN Reason: FEVER OR PAIN Last Admin: 04/11/17 23:04 Dose: 650 mg Amino Acids (Prosource No Carb Liquid Pkt) 30 ml PO BID@0800,1730 [facility] Last Admin: 04/18/17 10:56 Dose: 30 ml Budesonide/Formoterol Fumarate (Symbicort 80/4.5mcg -) 2 puff IH BID [facility] Last Admin: 04/18/17 10:57 Dose: 2 puff Carvedilol (Coreg -) 3.125 mg PO BID [facility] Last Admin: 04/18/17 10:56 Dose: 3.125 mg Diphenhydramine HCl (Benadryl -) 25 mg PO Q6H PRN PRN Reason: FOR ITCHING Last Admin: 04/17/17 08:13 Dose: 25 mg Docusate Sodium (Colace -) 300 mg PO HS [facility] Last Admin: 04/17/17 21:24 Dose: 300 mg Gabapentin (Neurontin -) 100 mg PO BID [facility] Last Admin: 04/18/17 10:55 Dose: 100 mg Haloperidol (Haldol Injection (Fast Acting) -) 2 mg IM Q4H PRN PRN Reason: AGITATION Last Admin: 04/16/17 13:21 Dose: 2 mg Lorazepam (Ativan Injection -) 0.5 mg IVPUSH BID PRN PRN Reason: ANXIETY Last Admin: 04/14/17 13:37 Dose: 0.5 mg Midodrine (Proamatine -) 10 mg PO TID-MID [facility] Last Admin: 04/18/17 15:20 Dose: 10 mg Ondansetron HCl (Zofran Injection) 4 mg IVPUSH Q6H PRN PRN Reason: NAUSEA AND/OR VOMITING Oxycodone HCl (Roxicodone -) 5 mg PO Q6H PRN PRN Reason: PAIN Last Admin: 04/17/17 18:30 Dose: 5 mg Quetiapine Fumarate (Seroquel -) 25 mg PO BID [facility] Last Admin: 04/18/17 10:55 Dose: 25 mg Ranitidine HCl (Zantac Oral Solution -) 150 mg PO DAILY [facility] Last Admin: 04/18/17 10:55 Dose: 150 mg Rosuvastatin Calcium (Crestor -) 5 mg PO HS [facility] Last Admin: 04/17/17 21:24 Dose: 5 mg Silver Sulfadiazine (Silvadene -) 1 applic TP BID [facility] Last Admin: 04/18/17 10:57 Dose: 1 applic Sucralfate (Carafate Oral Suspension -) 0.5 gm PO BID [facility] Last Admin: 04/18/17 10:55 Dose: 0.5 gm Warfarin Sodium (Coumadin -) 2 mg PO DAILY@1800 [facility] Last Admin: 04/17/17 17:39 Dose: 2 mg 77 year old gentleman with PMhx of ESRD on HD (TTS), Hypertension, DVT, PVD s/p right AKA and left toe amputation who presented to the ED with complaints of pain in his left foot and admitted fro soft tissue infection of the foot with concern for worsening ischemic disease. #ESRD on HD no acute indication for [employer] today next planned dialysis is Tuesday dose all meds for intermittent HD #Hypophosphatemia Repeat phos levels were WNL, ? if reading fo 1 was a lab error off binders for now #Wound/Ischemia of left LE BKA site healing well as per Vascular further Abx as per ID #Acute on Chronic Anemia continue IVANIA with HD no indication for transfusion at this time #Thrombocytopenia Trend for now will avoid heparin with Hd Thank you Raghu Boogie DO Problem List - Problems (1) Critical lower limb ischemia Code(s): I99.8 - OTHER DISORDER OF CIRCULATORY SYSTEM (2) Open wnd foot-complicated Code(s): S91.309A - UNSPECIFIED OPEN WOUND, UNSPECIFIED FOOT, INITIAL ENCOUNTER (3) HTN (hypertension) Code(s): I10 - ESSENTIAL (PRIMARY) HYPERTENSION Qualifiers: Qualified Code(s): I10 - Essential (primary) hypertension (4) ESRD (end stage renal disease) Code(s): N18.6 - END STAGE RENAL DISEASE (5) Anemia Code(s): D64.9 - ANEMIA, UNSPECIFIED
--- NOTE | 2017-04-18 16:29 | PN ---
Progress Note, Physician History of Present Illness: Pt seen and examined. Remains afebrile, no new events reported. - Current Medication List Current Medications: Active Medications Acetaminophen (Tylenol -) 650 mg PO Q6H PRN PRN Reason: FEVER OR PAIN Last Admin: 04/11/17 23:04 Dose: 650 mg Amino Acids (Prosource No Carb Liquid Pkt) 30 ml PO BID@0800,1730 [facility] Last Admin: 04/18/17 10:56 Dose: 30 ml Budesonide/Formoterol Fumarate (Symbicort 80/4.5mcg -) 2 puff IH BID [facility] Last Admin: 04/18/17 10:57 Dose: 2 puff Carvedilol (Coreg -) 3.125 mg PO BID [facility] Last Admin: 04/18/17 10:56 Dose: 3.125 mg Diphenhydramine HCl (Benadryl -) 25 mg PO Q6H PRN PRN Reason: FOR ITCHING Last Admin: 04/17/17 08:13 Dose: 25 mg Docusate Sodium (Colace -) 300 mg PO HS [facility] Last Admin: 04/17/17 21:24 Dose: 300 mg Gabapentin (Neurontin -) 100 mg PO BID [facility] Last Admin: 04/18/17 10:55 Dose: 100 mg Haloperidol (Haldol Injection (Fast Acting) -) 2 mg IM Q4H PRN PRN Reason: AGITATION Last Admin: 04/16/17 13:21 Dose: 2 mg Lorazepam (Ativan Injection -) 0.5 mg IVPUSH BID PRN PRN Reason: ANXIETY Last Admin: 04/14/17 13:37 Dose: 0.5 mg Midodrine (Proamatine -) 10 mg PO TID-MID [facility] Last Admin: 04/18/17 15:20 Dose: 10 mg Ondansetron HCl (Zofran Injection) 4 mg IVPUSH Q6H PRN PRN Reason: NAUSEA AND/OR VOMITING Oxycodone HCl (Roxicodone -) 5 mg PO Q6H PRN PRN Reason: PAIN Last Admin: 04/17/17 18:30 Dose: 5 mg Quetiapine Fumarate (Seroquel -) 25 mg PO BID [facility] Last Admin: 04/18/17 10:55 Dose: 25 mg Ranitidine HCl (Zantac Oral Solution -) 150 mg PO DAILY [facility] Last Admin: 04/18/17 10:55 Dose: 150 mg Rosuvastatin Calcium (Crestor -) 5 mg PO HS [facility] Last Admin: 04/17/17 21:24 Dose: 5 mg Silver Sulfadiazine (Silvadene -) 1 applic TP BID [facility] Last Admin: 04/18/17 10:57 Dose: 1 applic Sucralfate (Carafate Oral Suspension -) 0.5 gm PO BID [facility] Last Admin: 04/18/17 10:55 Dose: 0.5 gm Warfarin Sodium (Coumadin -) 2 mg PO DAILY@1800 [facility] Last Admin: 04/17/17 17:39 Dose: 2 mg - Objective Vital Signs: Vital Signs Temperature 97.6 F 04/18/17 06:00 Pulse Rate 69 04/18/17 06:00 Respiratory Rate 18 04/18/17 06:00 Blood Pressure 113/55 04/17/17 22:00 O2 Sat by Pulse Oximetry (%) 98 04/17/17 21:00 Constitutional: Yes: No Distress, Calm Cardiovascular: Yes: Regular Rate and Rhythm Respiratory: Yes: CTA Bilaterally Gastrointestinal: Yes: Normal Bowel Sounds, Soft Extremities: Yes: Amputation (Rt amp site healed, Lt BKA site wound without purulence) Integumentary: Yes: Rash (upper thigh/abdominal wall mild rash), Other Neurological: Yes: Alert Labs: CBC, BMP 04/18/17 08:10 04/18/17 08:10 INR, PTT INR 2.45 (0.82-1.09) H 04/18/17 08:10 Fibrinogen 296.0 mg/dL (238-498) D 03/30/17 06:10 Problem List - Problems (1) Atrial fibrillation Code(s): I48.91 - UNSPECIFIED ATRIAL FIBRILLATION Qualifiers: Atrial fibrillation type: persistent Qualified Code(s): I48.1 - Persistent atrial fibrillation (2) Critical lower limb ischemia Code(s): I99.8 - OTHER DISORDER OF CIRCULATORY SYSTEM (3) HTN (hypertension) Code(s): I10 - ESSENTIAL (PRIMARY) HYPERTENSION Qualifiers: Hypertension type: essential hypertension Qualified Code(s): I10 - Essential (primary) hypertension (4) ESRD (end stage renal disease) Code(s): N18.6 - END STAGE RENAL DISEASE (5) HLD (hyperlipidemia) Code(s): E78.5 - HYPERLIPIDEMIA, UNSPECIFIED Qualifiers: Hyperlipidemia type: pure hypercholesterolemia Qualified Code(s): E78.00 - Pure hypercholesterolemia, unspecified (6) Liver disease, chronic, with cirrhosis Code(s): K74.60 - UNSPECIFIED CIRRHOSIS OF LIVER; K76.9 - LIVER DISEASE, UNSPECIFIED (7) Open wnd foot-complicated Code(s): S91.309A - UNSPECIFIED OPEN WOUND, UNSPECIFIED FOOT, INITIAL ENCOUNTER (8) Peripheral arterial disease Code(s): I73.9 - PERIPHERAL VASCULAR DISEASE, UNSPECIFIED (9) S/P AKA (above knee amputation) Code(s): Z89.619 - ACQUIRED ABSENCE OF UNSPECIFIED LEG ABOVE KNEE Qualifiers: Laterality: right Qualified Code(s): Z89.611 - Acquired absence of right leg above knee Assessment/Plan Lt SFA occlusion s/p Lt BKA, wound site with VRE infection, with necrosis, now s /p debridement, wound vac on Faint rash noted on thighs, abd wall, ? 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
[2017-04-18] MEDS ORDERED: DOXYCYCLINE INJECTION 100 MG in DEXTROSE 5%-WATER - 100 ML IVPB SCH (16:45)
--- NOTE | 2017-04-18 16:49 | DS ---
Physical Exam: SUBJECTIVE: Patient seen and examined at the bedside. OBJECTIVE: for discharge today Vital Signs Period Temp Pulse Resp BP Sys/Coleamn Pulse Ox Last 24 Hr 97.6 F-98.0 F 69-78 18-18 113/55 98 PHYSICAL EXAM GENERAL: In no acute distress HEAD: Normal with no signs of trauma. NECK: Normal range of motion, supple without lymphadenopathy, JVD, or masses. LUNGS: Breath sounds diminished bilaterally, no wheezing, +fine crackles on right mid lobe, oxygen stable on room air HEART: irregular heart rate, hx of afib ABDOMEN: Soft, nontender, not distended, normoactive bowel sounds, no guarding, no rebound, no masses. No hepatomegaly or splenomegaly. 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, currently wrapped , on wound Vac, with bloody drainage wound cultures + VRE LABS Laboratory Results - last 24 hr 04/16/17 04/18/17 04/18/17 14:10 08:10 08:10 WBC RBC Hgb Hct MCV MCH MCHC RDW Plt Count MPV Neutrophils % Lymphocytes % Monocytes % Eosinophils % Basophils % PT with INR 27.70 H INR 2.45 H Sodium 141 Potassium 5.0 Chloride 100 Carbon Dioxide 31 Anion Gap 10 BUN 77 H D Creatinine 7.7 H* Random Glucose 84 Calcium 8.4 L Phosphorus 4.8 D Magnesium 2.3 D Hep A IgM Ab Confirm Negative Hepatitis A Ab Total Positive H Hep Bs Antigen Negative Hep Bs Antibody Reactive Hep B Core Total Ab Negative 04/18/17 08:10 WBC 6.1 RBC 3.46 L Hgb 9.9 L D Hct 31.1 L MCV 89.6 MCH 28.7 MCHC 32.0 RDW 20.3 H Plt Count 62 L D MPV 7.5 D Neutrophils % 79.1 Lymphocytes % 8.0 D Monocytes % 8.0 Eosinophils % 3.6 Basophils % 1.3 PT with INR INR Sodium Potassium Chloride Carbon Dioxide Anion Gap BUN Creatinine Random Glucose Calcium Phosphorus Magnesium Hep A IgM Ab Confirm Hepatitis A Ab Total Hep Bs Antigen Hep Bs Antibody Hep B Core Total Ab HOSPITAL COURSE: Date of Admission:03/14/17 Date of Discharge: 04/18/17 ASSESSMENT/PLAN: Patient is a 77 year old male with a significant past medical history of ESRD HD (T,Th,), atrial fib, hypertension, DVT, right AKA, s/p left 2nd digit amputation lower extremity. He presented to the ED on 03/14/2017 for critical ischemia of left lower extremity. Patient is Ukrainian speaking only and family reports having increased swelling to his left lower extremity. Pt comes with right AKA and a left middle toe amputation that was performed in [facility], where pt has been living for the past several years. Patient has medical records from [facility] in his file. Patient had a left BKA on 03/31/2017 for septic left foot/leg. Left BKA wound + VRE, now on Daptomycin as per ID. Vascular/ID: Sepsis secondary to ischemic Left foot, BKA on 04/01, resolved Vanco and Zosyn stopped on 04/04/2017 Previously had drainage from left BKA wound: +VRE, now on wound vac, may need AKA if site does not heal WBC stable, no fevers Continue of Doxycycline 100mg twice per day (04/18/2017 to 04/26/2017) Monitor vitals, fevers, reculture if continues to spike fevers Hematology: Coagulopathy (prolonged PTT/PT) Thrombocytopenia, s/p platelet infusion on 04/01 Neuro: Acute Metabolic Encephalopathy likely secondary to septic left foot, improving S/P left BKA Renal: ESRD, HD (on TThS) via right upper arm fistula, dialysis as per renal next dialysis tomorrow 04/19/2017 Cardiology: Therapeutic INR for Atrial Fibrillation Coumadin 2mg daily Hypertension, chronic Parameters added to BP meds CAD Coreg 3.125mg BID, Crestor 5mg HS Psyche: Agitation, delirium Haldol prn Seroquel 25mg BID Hematology: Anemia, likely chronic 2/2 to ESRD Monitor hmg/hct Heme following Disposition: [facility]. full code. Minutes to complete discharge: 60 Discharge Summary Reason For Visit: CRITICAL ISCHEMIA OF LOWER EXTREMITY Current Active Problems Abnormal CT of the abdomen (Acute) Amputated toe of left foot (Acute) Anemia (Acute) Anticoagulant long-term use (Acute) Atrial fibrillation (Acute) Cardiomyopathy (Acute) Critical lower limb ischemia (Acute) ESRD (end stage renal disease) (Acute) Gastric varices (Acute) HLD (hyperlipidemia) (Acute) HTN (hypertension) (Acute) Hypercoagulable state (Acute) Liver cirrhosis (Acute) Liver disease, chronic, with cirrhosis (Acute) Liver, cirrhosis, portal (Acute) Open wnd foot-complicated (Acute) Peripheral arterial disease (Acute) S/P AKA (above knee amputation) (Acute) Systolic dysfunction, left ventricle (Acute) Thrombocytopenia (Acute) Condition: Stable - Instructions Diet, Activity, Other Instructions: Mr. Patel: Please continue the Doxycycline 100 mg twice per day for 1 week (from 04/18/2017 to 04/26/2017) Please call with any questions that you may have. Disposition: TRANSFER ACUTE CARE/OTHER HOSP - Home Medications Comprehensive Discharge Medication List: Ambulatory Orders Alprazolam [Xanax] 0.25 mg PO HS 03/14/17 Cilostazol [Pletal -] 100 mg PO BID 03/14/17 Esomeprazole Magnesium 40 mg PO DAILY 03/14/17 Fluticasone/Salmeterol [Advair 250-50 Diskus] 1 each IH BID 03/14/17 Glucosamine Sulfate Dipot Chlr [Glucosamine Sulfate] 1,000 mg PO DAILY 03/14/17 Meloxicam [Mobic] 15 mg PO DAILY 03/14/17 Rosuvastatin Calcium [Crestor] 20 mg PO DAILY 03/14/17 Sucralfate [Carafate] 5 ml PO BID 03/14/17 Tramadol HCl [Ultram -] 50 mg PO Q4H PRN 03/14/17 Acetaminophen [Tylenol .Regular Strength -] 650 mg PO Q6H PRN tablet 04/18/17 Amino Acids/Protein Hydrolys [Prosource No Carb Liquid Pkt] 30 ml PO BID@0800, 1730 packet 04/18/17 Carvedilol [Coreg -] 3.125 mg PO BID tablet 04/18/17 Diphenhydramine HCl [Benadryl Capsule -] 25 mg PO Q6H PRN capsule 04/18/17 Docusate Sodium [Colace -] 300 mg PO HS capsule 04/18/17 Doxycycline Hyclate [Vibramycin -] 100 mg PO BID@1000,1800 capsule 04/18/17 Gabapentin [Neurontin -] 100 mg PO BID capsule 04/18/17 Midodrine HCl [Proamatine -] 10 mg PO TID-MID tablet 04/18/17 Quetiapine Fumarate [Seroquel -] 25 mg PO BID tablet 04/18/17 Ranitidine Oral Solution [Zantac Oral Solution -] 150 mg PO DAILY cup 04/18/17 Silver Sulfadiazine 1% Top Cr [Silvadene -] 1 applic TP BID jar 04/18/17 Warfarin Na [Coumadin -] 2 mg PO DAILY@1800 tablet 04/18/17 This patient is new to me today: No Emergency Visit: Yes ED Registration Date: 03/14/17 Care time: The patient presented to the Emergency Department on the above date and was hospitalized for further evaluation of their emergent condition. Critical Care patient: No - Discharge Referral Referred to [facility] Med P.C.: No
[2017-04-18 16:50] VITALS: BP 126/84; PULSE 76; TEMP 97.3
[2017-04-18] MEDS ORDERED: DOXYCYCLINE HYCLATE 100 MG CAPSULE PO SCH (18:00)
[2017-04-18] MEDS: WARFARIN NA 2 MG TABLET (UD) PO SCH (18:30)
--- NOTE | 2017-04-18 18:46 | PN ---
Progress Note, Physician Chief Complaint: S/P SFA angioplasty and stent Post left BKA History of Present Illness: Patient was seen and examined. Awake. Chart was reviewed Denies chest pain or SOB INR therapeutic - Objective Vital Signs: Vital Signs Temperature 97.3 F L 04/18/17 10:00 Pulse Rate 76 04/18/17 10:00 Respiratory Rate 16 04/18/17 10:00 Blood Pressure 126/84 04/18/17 10:00 O2 Sat by Pulse Oximetry (%) 98 04/17/17 21:00 Cardiovascular: Yes: Regular Rate and Rhythm, Murmur (Soft SM), S1, S2 Respiratory: Yes: Diminished Gastrointestinal: Yes: Normal Bowel Sounds, Soft. No: Tenderness Extremities: Yes: Amputation Edema: No Labs: CBC, BMP 04/18/17 08:10 04/18/17 08:10 INR, PTT INR 2.45 (0.82-1.09) H 04/18/17 08:10 Fibrinogen 296.0 mg/dL (238-498) D 03/30/17 06:10 Problem List - Problems (1) Critical lower limb ischemia Code(s): I99.8 - OTHER DISORDER OF CIRCULATORY SYSTEM (2) HLD (hyperlipidemia) Code(s): E78.5 - HYPERLIPIDEMIA, UNSPECIFIED Qualifiers: Hyperlipidemia type: pure hypercholesterolemia Qualified Code(s): E78.00 - Pure hypercholesterolemia, unspecified (3) HTN (hypertension) Code(s): I10 - ESSENTIAL (PRIMARY) HYPERTENSION Qualifiers: Hypertension type: essential hypertension Qualified Code(s): I10 - Essential (primary) hypertension (4) ESRD (end stage renal disease) Code(s): N18.6 - END STAGE RENAL DISEASE (5) Anemia Code(s): D64.9 - ANEMIA, UNSPECIFIED (6) Atrial fibrillation Code(s): I48.91 - UNSPECIFIED ATRIAL FIBRILLATION Qualifiers: Atrial fibrillation type: persistent Qualified Code(s): I48.1 - Persistent atrial fibrillation (7) Amputated toe of left foot Code(s): Z89.422 - ACQUIRED ABSENCE OF OTHER LEFT TOE(S) (8) S/P AKA (above knee amputation) Code(s): Z89.619 - ACQUIRED ABSENCE OF UNSPECIFIED LEG ABOVE KNEE Qualifiers: Laterality: right Qualified Code(s): Z89.611 - Acquired absence of right leg above knee (9) Cardiomyopathy Code(s): I42.9 - CARDIOMYOPATHY, UNSPECIFIED Qualifiers: Cardiomyopathy type: unspecified Qualified Code(s): I42.9 - Cardiomyopathy , unspecified (10) Systolic dysfunction, left ventricle Code(s): I51.9 - HEART DISEASE, UNSPECIFIED Assessment/Plan 1. PAD post right AKA and left toe amputation, occluded left SFA post angioplasty/stent, post left BKA 2. CAD angina pectoris 3. Dilated cardiomyopathy with chronic class I-II NYHA classification LV systolic failure, compensated/ euvolemic 4. Persistent atrial fibrillation [id number] score of 4 - supratherapeutic INR 5. Severe TR with pulmonary HTN 6. HTN 7. ESRD on HD 8. History of DVT 9. Anemia 10. Thrombocytopenia 11. VREF PLAN: 1. Continue Coreg 2. Continue Crestor 3. HD as per renal service 4. Continue Coumadin per INR 2-3 5. Vascular input noted. Await SNF placement and to continue with wound care 6. Continue Midodrine and monitor BP closely Further plans are to follow Elias Landrum MD
[2017-04-19] MEDS ORDERED: EPOETIN ALFA 10,000 UNIT/1 ML VIAL IVPUSH ONE (06:00)
== END 2017-04-18 18:28 | disposition short-term general hospital (02) | DRG 239 ==
LOC: JER 00:05 → JERBED 06:19 → J6S 13:16 → JICU 03-31 17:02 → J8W 04-02 20:23
PROVIDERS: ADMIT Internal Medicine; ATTEND Nurse Practitioner Family
PROC: 5A1D70Z Performance of Urinary Filtration, Intermittent, Less than 6 Hours Per Day (ICD-10-PCS; 2017-03-14)
PROC: B41GZZZ Fluoroscopy of Left Lower Extremity Arteries (ICD-10-PCS; 2017-03-16)
PROC: 047L341 Dilation of Left Femoral Artery with Drug-eluting Intraluminal Device, using Drug-Coated Balloon, Percutaneous Approach (ICD-10-PCS; 2017-03-17)
PROC: 047L341 Dilation of Left Femoral Artery with Drug-eluting Intraluminal Device, using Drug-Coated Balloon, Percutaneous Approach (ICD-10-PCS; 2017-03-17)
PROC: 30233H1 Transfusion of Nonautologous Whole Blood into Peripheral Vein, Percutaneous Approach (ICD-10-PCS; 2017-03-22)
PROC: 30233R1 Transfusion of Nonautologous Platelets into Peripheral Vein, Percutaneous Approach (ICD-10-PCS; 2017-03-22)
PROC: 0Y6J0Z2 Detachment at Left Lower Leg, Mid, Open Approach (ICD-10-PCS; principal; 2017-03-31 11:00)
PROC: 0HDJXZZ Extraction of Left Upper Leg Skin, External Approach (ICD-10-PCS; 2017-04-15)
PROC: 2W19X6Z Compression of Left Upper Extremity using Pressure Dressing (ICD-10-PCS; 2017-04-18)
DX: I70.262 Atherosclerosis of native arteries of extremities with gangrene, left leg (principal); N18.6 End stage renal disease; A41.9 Sepsis, unspecified organism; G93.41 Metabolic encephalopathy; R65.20 Severe sepsis without septic shock; L97.528 Non-pressure chronic ulcer of other part of left foot with other specified severity; E87.0 Hyperosmolality and hypernatremia; I12.0 Hypertensive chronic kidney disease with stage 5 chronic kidney disease or end stage renal disease; I48.1 Persistent atrial fibrillation; I42.0 Dilated cardiomyopathy; T87.44 Infection of amputation stump, left lower extremity; I99.8 Other disorder of circulatory system; Z89.611 Acquired absence of right leg above knee; Z86.718 Personal history of other venous thrombosis and embolism; Z89.422 Acquired absence of other left toe(s); Z99.2 Dependence on renal dialysis; M79.672 Pain in left foot; T87.89 Other complications of amputation stump; Y83.5 Amputation of limb(s) as the cause of abnormal reaction of the patient, or of later complication, without mention of misadventure at the time of the procedure; Y83.8 Other surgical procedures as the cause of abnormal reaction of the patient, or of later complication, without mention of misadventure at the time of the procedure; Y92.89 Other specified places as the place of occurrence of the external cause; Z87.891 Personal history of nicotine dependence; D64.89 Other specified anemias; N40.0 Benign prostatic hyperplasia without lower urinary tract symptoms; I48.2 Chronic atrial fibrillation; I77.1 Stricture of artery; I71.4 Abdominal aortic aneurysm, without rupture; I11.9 Hypertensive heart disease without heart failure; I36.1 Nonrheumatic tricuspid (valve) insufficiency; I27.20 Pulmonary hypertension, unspecified; I25.119 Atherosclerotic heart disease of native coronary artery with unspecified angina pectoris; S00.31XA Abrasion of nose, initial encounter; S05.12XA Contusion of eyeball and orbital tissues, left eye, initial encounter; W01.0XXA Fall on same level from slipping, tripping and stumbling without subsequent striking against object, initial encounter; Y93.89 Activity, other specified; Y92.230 Patient room in hospital as the place of occurrence of the external cause; Y99.8 Other external cause status; D63.1 Anemia in chronic kidney disease; D69.6 Thrombocytopenia, unspecified; R79.1 Abnormal coagulation profile; I95.2 Hypotension due to drugs; T40.2X5A Adverse effect of other opioids, initial encounter; L89.151 Pressure ulcer of sacral region, stage 1; K74.60 Unspecified cirrhosis of liver; R91.1 Solitary pulmonary nodule; Z86.73 Personal history of transient ischemic attack (TIA), and cerebral infarction without residual deficits; L89.152 Pressure ulcer of sacral region, stage 2; E83.51 Hypocalcemia; Z51.89 Encounter for other specified aftercare; R45.1 Restlessness and agitation; E87.6 Hypokalemia; T87.81 Dehiscence of amputation stump; E83.39 Other disorders of phosphorus metabolism
CPT/HCPCS: 36415; 36430; 36600; 70450-TC; 70551-TC; 71010-TC; 74174-TC; 75635-TC; 76000-TC; 76700-TC; 78452-TC; 80048; 80053; 80061; 82272; 82550; 82607; 82728; 82746; 82803; 83010; 83540; 83550; 83605; 83615; 83721; 83735; 83970; 84100; 84132; 84153; 84484; 85025; 85027; 85044; 85384; 85610; 85613; 85730; 85732; 86022; 86593; 86704; 86706; 86708; 86803; 86850; 86900; 86901; 86922; 87040; 87070; 87186; 87205; 87340; 88307-TC; 88311-TC; 93005; 93010; 93017; 93306-TC; 93926-TC; 93971-TC; 94760; 99283-25; A9502; G0480; J0878; J0885; J1644; J1756; P9034; P9038; P9058

== ENCOUNTER 2017-04-20 13:20 | Inpatient (IN) | payer OTHER ==
[2017-04-20 13:45] VITALS: BMI 21.7
--- NOTE | 2017-04-20 15:11 | PDOC ---
History of Present Illness - General Chief Complaint: Injury Stated Complaint: ALTERED MENTAL STATES Time Seen by Provider: 04/20/17 13:58 History Source: Patient Exam Limitations: No Limitations - History of Present Illness Initial Comments: 04/20/17 15:04 This 77 yr old male who has AMS, at [facility]. Recent left leg amputee, bandage intact. Was seen here in ER two days ago for a fall. Pt is on coumadin. Unknown if LOC unwitnessed. Pt shows no sign of trauma, speaks mostly togolese to his son. He denies pain. Pt is HD through left upper arm fistula, due today according to his son. PMH reviewed PSH: reviewed Occurred: reports: just prior to arrival Past History - Past Medical History Allergies/Adverse Reactions: Allergies Allergy/AdvReac Type Severity Reaction Status Date / Time No Known Allergies Allergy Verified 04/20/17 13:33 Home Medications: Ambulatory Orders Alprazolam [Xanax] 0.25 mg PO HS 03/14/17 Cilostazol [Pletal -] 100 mg PO BID 03/14/17 Esomeprazole Magnesium 40 mg PO DAILY 03/14/17 Fluticasone/Salmeterol [Advair 250-50 Diskus] 1 each IH BID 03/14/17 Glucosamine Sulfate Dipot Chlr [Glucosamine Sulfate] 1,000 mg PO DAILY 03/14/17 Meloxicam [Mobic] 15 mg PO DAILY 03/14/17 Rosuvastatin Calcium [Crestor] 20 mg PO DAILY 03/14/17 Sucralfate [Carafate] 5 ml PO BID 03/14/17 Tramadol HCl [Ultram -] 50 mg PO Q4H PRN 03/14/17 Acetaminophen [Tylenol .Regular Strength -] 650 mg PO Q6H PRN tablet 04/18/17 Amino Acids/Protein Hydrolys [Prosource No Carb Liquid Pkt] 30 ml PO BID@0800, 1730 packet 04/18/17 Carvedilol [Coreg -] 3.125 mg PO BID tablet 04/18/17 Diphenhydramine HCl [Benadryl Capsule -] 25 mg PO Q6H PRN capsule 04/18/17 Docusate Sodium [Colace -] 300 mg PO HS capsule 04/18/17 Doxycycline Hyclate [Vibramycin -] 100 mg PO BID@1000,1800 capsule 04/18/17 Gabapentin [Neurontin -] 100 mg PO BID capsule 04/18/17 Midodrine HCl [Proamatine -] 10 mg PO TID-MID tablet 04/18/17 Quetiapine Fumarate [Seroquel -] 25 mg PO BID tablet 04/18/17 Ranitidine Oral Solution [Zantac Oral Solution -] 150 mg PO DAILY cup 04/18/17 Silver Sulfadiazine 1% Top Cr [Silvadene -] 1 applic TP BID jar 04/18/17 Warfarin Na [Coumadin -] 2 mg PO DAILY@1800 tablet 04/18/17 Anemia: Yes Cardiac Disorders: Yes (Pt states he was told that he had an SD but he does not recall) COPD: Yes (former smoker) Dialysis: Yes GI Disorders: Yes (GERD) HTN: Yes Psychiatric Problems: Yes (anxiety) - Surgical History Abdominal Surgery: Yes Cholecystectomy: Yes - Suicide/Smoking/Psychosocial Hx Smoking History: Never smoked Have you smoked in the past 12 months: No Hx Alcohol Use: No Drug/Substance Use Hx: No Substance Use Type: None Hx Substance Use Treatment: No Review of Systems - Review of Systems Able to Perform ROS?: No (confusion base line) *Physical Exam - Vital Signs Last Vital Signs Temp Pulse Resp BP Pulse Ox 90 18 111/71 95 04/20/17 13:33 04/20/17 13:33 04/20/17 13:33 04/20/17 13:33 - Physical Exam General Appearance: Yes: Nourished HEENT: positive: ZULEIMA, Symmetrical Neck: positive: Trachea midline Respiratory/Chest: positive: Lungs Clear, Normal Breath Sounds Cardiovascular: positive: Regular Rhythm Gastrointestinal/Abdominal: positive: Normal Bowel Sounds, Flat, Soft Extremity: positive: Other (bilateral amputee, recent to the left mid calf amputee). negative: Pedal Edema, Swelling, Calf Tenderness, Inflammation Integumentary: positive: Normal Color, Dry, Warm Neurologic: positive: Alert. negative: Fully Oriented ED Treatment Course - RADIOLOGY Radiology Studies Ordered: Category Date Time Status CERVICAL SPINE CT W/O CONTR [CT] Stat CT Scan 04/20/17 14:[address] WITHOUT CONTRAST [CT] Stat CT Scan 04/20/17 14:41 Ordered Medical Decision Making - Medical Decision Making 04/20/17 15:08 Pt seen and examined with son at bedside. Today fell oob at care home due to AMS which is not new< will ct head and neck Pt will require inpat as he needs repeat and obs with fall and use of coumadin. Plan Labs, including coags CTH, CT cervical spoke with Dr. Boogie who will monitor labs and see if he needs HD today or tomorrow and will let us know OBS admission *DC/Admit/Observation/Transfer Diagnosis at time of Disposition: Fall - Referrals Referrals: Gary Gibbons MD [Primary Care Provider] - - Patient Instructions - Post Discharge Activity
[2017-04-20 17:17] LABS: HEMATOCRIT 29.6 % (35.4-49); HEMOGLOBIN 9.4 GM/dL (11.7-16.9); LYMPH % 12.2 % (8-40); MCH 28.6 pg (25.7-33.7); MCHC 31.8 g/dl (32.0-35.9); MEAN CELL VOLUME 89.9 fl (80-96); MEAN PLT VOLUME 7.6 fl (7.5-11.1); MONO % 9.5 % (3.8-10.2); NEUT % 71.3 % (42.8-82.8); PLATELET COUNT 60 K/MM3 (134-434); RDW 20.7 % (11.9-15.9); WHITE BLOOD COUNT 4.6 K/mm3 (4.0-10.0)
[2017-04-20 17:35] LABS: ALBUMIN 2.2 g/dl (3.4-5.0); ANION GAP 10 (8-16); BLOOD UREA NITROGEN 94 mg/dL (7-18); CHLORIDE 102 mmol/L (98-107); CO2 28 mmol/L (21-32); GLUCOSE,RANDOM 72 mg/dL (74-106); POTASSIUM 5.7 mmol/L (3.5-5.1); SGOT/AST 13 U/L (15-37); SGPT/ALT 11 U/L (12-78); SODIUM 140 mmol/L (136-145)
[2017-04-20 17:41] LABS: ALK PHOS 120 U/L (45-117); BILIRUBIN,TOTAL 0.5 mg/dL (0.2-1.0); TOT PROT 5.2 g/dl (6.4-8.2)
[2017-04-20 17:44] LABS: CREATININE 9.7 mg/dL (0.7-1.3)
[2017-04-20 17:44] LABS: ACTIVATED PTT 56.8 SECONDS (26.9-34.4); INR 2.63 (0.82-1.09); PROTHROMBIN TIME (PATIENT) 29.7 SEC (9.98-11.88)
[2017-04-20] MEDS ORDERED: EPOETIN ALFA 10,000 UNIT/1 ML VIAL IVPUSH ONE (18:00)
--- NOTE | 2017-04-20 18:24 | PDOC ---
*Physical Exam - Vital Signs Last Vital Signs Temp Pulse Resp BP Pulse Ox 90 18 111/71 95 04/20/17 13:33 04/20/17 13:33 04/20/17 13:33 04/20/17 13:33 ED Treatment Course - LABORATORY CBC & Chemistry Diagram: 04/20/17 17:00 04/20/17 16:20 - ADDITIONAL ORDERS Additional order review: Laboratory Results 04/20/17 16:20 Sodium 140 Potassium 5.7 H Chloride 102 Carbon Dioxide 28 Anion Gap 10 BUN 94 H D Creatinine 9.7 H* D Creat Clearance w eGFR 5.28 Random Glucose 72 L Calcium 8.0 L Total Bilirubin 0.5 D AST 13 L ALT 11 L Alkaline Phosphatase 120 H Total Protein 5.2 L Albumin 2.2 L 04/20/17 17:00 RBC 3.30 L MCV 89.9 MCHC 31.8 L RDW 20.7 H MPV 7.6 Neutrophils % 71.3 Lymphocytes % 12.2 D Monocytes % 9.5 Eosinophils % 6.0 H Basophils % 1.0 Medical Decision Making - Medical Decision Making 04/20/17 18:23 77 M with ESRD on HD T//Tue who presents with mechanical fall on coumadin. - CTH negative for ICH. - Dr. Boogie would like pt dialyzed today - Pt to be admitted to Obs *DC/Admit/Observation/Transfer Diagnosis at time of Disposition: Fall, ESRD (end stage renal disease) - Discharge Dispostion Admit: Yes - Referrals Referrals: Gary Gibbons MD [Primary Care Provider] - - Patient Instructions - Post Discharge Activity - Attestations Physician Attestion: 04/20/17 18:24 I, Dr. Ruben De La Rosa MD, attest that this document has been prepared under my direction and personally reviewed by me in its entirety. I further attest, that it accurately reflects all work, treatment, procedures and medical decision -making performed by me.
--- NOTE | 2017-04-20 21:09 | HP ---
CHIEF COMPLAINT: AMS s/p fall PCP: Shai ([facility] pt) HISTORY OF PRESENT ILLNESS: This is a 77yM who was recently admitted here under our service from 03/14-04/18 for critical ischemia of left leg. 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 He presented to the ED from the long-term today s/p fall. Pt appears to be at his usual baseline mental status at present although the MA reported AMS. Pt denies injury. Reports pain to L stump. ER course was notable for: (1) CT head with no acute changes (2) CT neck without acute fracture (3) Potassium 5.7 Recent Travel: was living in [facility] until just prior to recent hospitalization PAST MEDICAL HISTORY: HTN, CAD, Afib, PVD, ESRD, anemia, COPD, GERD, anxiety, DVT, AAA-infrarenal, Hepatitis B PAST SURGICAL HISTORY: R AKA L BKA Social History: Smoking: prior Alcohol: pt denies Drugs: pt denies Family History: unk Allergies No Known Allergies Allergy (Verified 04/20/17 13:33) HOME MEDICATIONS: 3 Medication Instructions Recorded Alprazolam [Xanax] 0.25 mg PO HS 03/14/17 Cilostazol [Pletal -] 100 mg PO BID 03/14/17 Esomeprazole Magnesium 40 mg PO DAILY 03/14/17 Fluticasone/Salmeterol [Advair 1 each IH BID 03/14/17 250-50 Diskus] Glucosamine Sulfate Dipot Chlr 1,000 mg PO DAILY 03/14/17 [Glucosamine Sulfate] Meloxicam [Mobic] 15 mg PO DAILY 03/14/17 Rosuvastatin Calcium [Crestor] 20 mg PO DAILY 03/14/17 Sucralfate [Carafate] 5 ml PO BID 03/14/17 Tramadol HCl [Ultram -] 50 mg PO Q4H PRN 03/14/17 Acetaminophen [Tylenol .Regular 650 mg PO Q6H PRN tablet 04/18/17 Strength -] Amino Acids/Protein Hydrolys 30 ml PO BID@0800,1730 packet 04/18/17 [Prosource No Carb Liquid Pkt] Carvedilol [Coreg -] 3.125 mg PO BID tablet 04/18/17 Diphenhydramine HCl [Benadryl 25 mg PO Q6H PRN capsule 04/18/17 Capsule -] Docusate Sodium [Colace -] 300 mg PO HS capsule 04/18/17 Doxycycline Hyclate [Vibramycin -] 100 mg PO BID@1000,1800 capsule 04/18/17 Gabapentin [Neurontin -] 100 mg PO BID capsule 04/18/17 Midodrine HCl [Proamatine -] 10 mg PO TID-MID tablet 04/18/17 Quetiapine Fumarate [Seroquel -] 25 mg PO BID tablet 04/18/17 Ranitidine Oral Solution [Zantac 150 mg PO DAILY cup 04/18/17 Oral Solution -] Silver Sulfadiazine 1% Top Cr 1 applic TP BID jar 04/18/17 [Silvadene -] Warfarin Na [Coumadin -] 2 mg PO DAILY@1800 tablet 04/18/17 REVIEW OF SYSTEMS CONSTITUTIONAL: Absent: fever, chills, diaphoresis, generalized weakness, malaise, loss of appetite, weight change HEENT: Absent: rhinorrhea, nasal congestion, throat pain, throat swelling, difficulty swallowing, mouth swelling, ear pain, eye pain, visual changes CARDIOVASCULAR: Absent: chest pain, syncope, palpitations, irregular heart rate, lightheadedness , peripheral edema RESPIRATORY: Absent: cough, shortness of breath, dyspnea with exertion, orthopnea, wheezing, stridor, hemoptysis GASTROINTESTINAL: Absent: abdominal pain, abdominal distension, nausea, vomiting, diarrhea, constipation, melena, hematochezia GENITOURINARY: Absent: dysuria, frequency, urgency, hesitancy, hematuria, flank pain, genital pain MUSCULOSKELETAL: Present: s/p fall Absent: myalgia, arthralgia, joint swelling, back pain, neck pain SKIN: Absent: rash, itching, pallor HEMATOLOGIC/IMMUNOLOGIC: Absent: easy bleeding, easy bruising, lymphadenopathy, frequent infections ENDOCRINE: Absent: unexplained weight gain, unexplained weight loss, heat intolerance, cold intolerance NEUROLOGIC: Absent: headache, focal weakness or paresthesias, dizziness, unsteady gait, seizure, mental status changes, bladder or bowel incontinence PSYCHIATRIC: Absent: anxiety, depression, suicidal or homicidal ideation, hallucinations. PHYSICAL EXAMINATION Vital Signs - 24 hr 3 04/20/17 04/20/17 04/20/17 13:33 17:25 17:30 Pulse Rate 90 84 72 Respiratory 18 189 H 18 Rate Blood Pressure 111/71 112/68 104/58 O2 Sat by Pulse 95 Oximetry (%) 3 04/20/17 04/20/17 04/20/17 18:00 18:30 19:00 Pulse Rate 75 81 79 Respiratory 18 18 18 Rate Blood Pressure 79/48 105/62 108/79 O2 Sat by Pulse Oximetry (%) 3 04/20/17 04/20/17 19:30 20:00 Pulse Rate 84 86 Respiratory 18 18 Rate Blood Pressure 109/71 108/75 O2 Sat by Pulse Oximetry (%) GENERAL: Awake, alert, and fully oriented, in no acute distress. HEAD: Normal with no signs of trauma. EYES: Pupils equal, round and reactive to light, extraocular movements intact, sclera anicteric, conjunctiva clear. No lid lag. EARS, NOSE, THROAT: Ears normal, nares patent, oropharynx clear without exudates. Moist mucous membranes. NECK: Normal range of motion, supple without lymphadenopathy, JVD, or masses. LUNGS: Breath sounds equal, clear to auscultation bilaterally. No wheezes, and no crackles. No accessory muscle use. HEART: Regular rate and rhythm, normal S1 and S2 without murmur, rub or gallop. ABDOMEN: Soft, nontender, not distended, normoactive bowel sounds, no guarding, no rebound, no masses. No hepatomegaly or splenomegaly. MUSCULOSKELETAL: Normal range of motion at all joints. No bony deformities or tenderness. No CVA tenderness. UPPER EXTREMITIES: 2+ pulses, warm, well-perfused. No cyanosis. No clubbing. No peripheral edema. LOWER EXTREMITIES: 2+ pulses, warm, well-perfused. No calf tenderness. No peripheral edema. NEUROLOGICAL: Cranial nerves II-XII intact. Normal speech. Normal gait. PSYCHIATRIC: Cooperative. Good eye contact. Appropriate mood and affect. SKIN: Warm, dry, normal turgor, no rashes, normal capillary refill. Stage 3 sacral ulcer, 80% slough, 7cm x 5cm x 0cm, no foul odor, no discharge. Multiple open wounds noted to LLE as follows: 1. Left proximal anterior knee with healing scab 0.5 x 0.25cm 2. Left anterior knee area with eschar, unstable ulcer, 10 cmx 4.5cm 3. L stump dehisced surgical wound, + slough to distal area of wound, 4. L proximal medial aspect of knee with open blister 5 x 4cm 4. Le distal medical aspect of knee open blister 5 x 4cm Laboratory Results - last 24 hr 3 04/20/17 04/20/17 04/20/17 16:20 17:00 17:00 WBC 4.6 RBC 3.30 L Hgb 9.4 L Hct 29.6 L MCV 89.9 MCH 28.6 MCHC 31.8 L RDW 20.7 H Plt Count 60 L MPV 7.6 Neutrophils % 71.3 Lymphocytes % 12.2 D Monocytes % 9.5 Eosinophils % 6.0 H Basophils % 1.0 PT with INR 29.70 H INR 2.63 H PTT (Actin FS) 56.8 H D Sodium 140 Potassium 5.7 H Chloride 102 Carbon Dioxide 28 Anion Gap 10 BUN 94 H D Creatinine 9.7 H* D Creat Clearance w eGFR 5.28 Random Glucose 72 L Calcium 8.0 L Total Bilirubin 0.5 D AST 13 L ALT 11 L Alkaline Phosphatase 120 H Total Protein 5.2 L Albumin 2.2 L ASSESSMENT/PLAN: 77yM with PMH HTN, CAD, Afib, PVD, ESRD, anemia, COPD, GERD, anxiety, DVT, AAA- infrarenal, Hepatitis B, 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 s/p fall - no obvious injury, CT head/neck no acute changes. - cont to monitor ESRD/hyperkalemia - s/p dialysis this evening, will repeat labs in am L BKA/PVD - surgical wound not on vac as recommended on DC on 04/18, appears with slough to distal aspect and proximal to surgical wound noted with multiple open wounds - vascular surgical consult ordered. - cont gabapentin for pain - morphine 2mg ordered x 1, resume home tramadol PRN HTN/HLD/CAD - cont home crestor, coreg Afib - rate controlled - INR therapeutic, cont warfarin thrombocytopenia - present on previous admission, near baseline, cont to trend. GERD - home nexium changed to formulary protonix, unclear why pt on PPI and H2 audrey, will dc ranitidine for now - h/o guaiac positive stool on previous admission DVT PPX - therapeutic on coumadin, cont same FEN - defer IVF, pt on dialysis - BMP in am - low sodium renal diet Dispo: Pt currently requires further observation for management of his emergent condition. Visit type - Emergency Visit Emergency Visit: Yes ED Registration Date: 04/20/17 Care time: The patient presented to the Emergency Department on the above date and was hospitalized for further evaluation of their emergent condition. - New Patient This patient is new to me today: Yes Date on this admission: 04/20/17 - Critical Care Critical Care patient: No
[2017-04-20] MEDS ORDERED: morphine SULFATE 4 MG/ML VIAL IVPUSH ONE (21:17)
[2017-04-20] MEDS ORDERED: SILVER SULFADIAZINE 1% TOP CREAM 400 GM JAR TP SCH (22:00)
[2017-04-20] MEDS ORDERED: SILVER SULFADIAZINE 1% TOP CREAM 50 GM JAR TP SCH (22:15)
[2017-04-20] MEDS: SUCRALFATE 1 GM/10 ML UNIT DOSE CUPS PO SCH (23:33)
[2017-04-20] MEDS: DOCUSATE SODIUM 100 MG CAPSULE (FP) PO SCH (23:34)
[2017-04-20] MEDS: CARVEDILOL 3.125 MG TABLET (FP) PO SCH (23:38)
[2017-04-20] MEDS: QUEtiapine FUMARATE 25 MG TABLET (FP) PO SCH (23:38)
[2017-04-20] MEDS: GABAPENTIN 100 MG CAPSULE (FP) PO SCH (23:39)
[2017-04-20] MEDS: CILOSTAZOL 100 MG TABLET PO SCH (23:39)
[2017-04-20] MEDS: BUDESONIDE/FORMETEROL FUMARATE 80/4.5 mcg INHALER IH SCH (23:40)
[2017-04-20] MEDS: ALPRAZolam 0.25 MG TABLET PO SCH (23:40)
[2017-04-21 07:00] LABS: BASO % 1.2 % (0-2.0); EOS % 6.2 % (0-4.5); HEMATOCRIT 31.2 % (35.4-49); HEMOGLOBIN 9.8 GM/dL (11.7-16.9); LYMPH % 11.4 % (8-40); MCH 28.4 pg (25.7-33.7); MCHC 31.5 g/dl (32.0-35.9); MEAN PLT VOLUME 8.1 fl (7.5-11.1); MONO % 10.8 % (3.8-10.2); NEUT % 70.4 % (42.8-82.8); PLATELET COUNT 44 K/MM3 (134-434); RBC 3.47 M/mm3 (4.00-5.60); RDW 20.7 % (11.9-15.9); WHITE BLOOD COUNT 4.2 K/mm3 (4.0-10.0)
[2017-04-21 07:23] LABS: ANION GAP 11 (8-16); BLOOD UREA NITROGEN 62 mg/dL (7-18); CALCIUM 8.3 mg/dL (8.5-10.1); CHLORIDE 103 mmol/L (98-107); CO2 31 mmol/L (21-32); CREATININE 7.4 mg/dL (0.7-1.3); GLUCOSE,RANDOM 69 mg/dL (74-106); MAGNESIUM 2.2 mg/dL (1.8-2.4); PHOSPHOROUS 4.2 mg/dL (2.5-4.9); POTASSIUM 4.5 mmol/L (3.5-5.1); SODIUM 145 mmol/L (136-145)
[2017-04-21] MEDS: AMINO ACIDS/PROTEIN HYDROLYS 30 ML LIQUID.PKT PO SCH ×2 (08:48→17:35)
[2017-04-21] MEDS ORDERED: PT OWN MED DRAWER 7, Y5N ONE ×2 (09:51→20:57)
[2017-04-21] MEDS: CARVEDILOL 3.125 MG TABLET (FP) PO SCH ×2 (09:57→21:07)
[2017-04-21] MEDS: ROSUVASTATIN CA 20 MG TABLET (FP) PO SCH (09:57)
[2017-04-21] MEDS: GABAPENTIN 100 MG CAPSULE (FP) PO SCH ×2 (09:57→21:07)
[2017-04-21] MEDS: DOXYCYCLINE HYCLATE 100 MG CAPSULE PO SCH ×2 (09:57→17:35)
[2017-04-21] MEDS: MIDODRINE HCL 5 MG TABLET PO SCH ×3 (09:58→17:37)
[2017-04-21] MEDS: QUEtiapine FUMARATE 25 MG TABLET (FP) PO SCH ×2 (09:58→21:08)
[2017-04-21] MEDS: BUDESONIDE/FORMETEROL FUMARATE 80/4.5 mcg INHALER IH SCH ×2 (09:58→21:13)
[2017-04-21] MEDS: CILOSTAZOL 100 MG TABLET PO SCH ×2 (09:59→21:08)
[2017-04-21] MEDS: SUCRALFATE 1 GM/10 ML UNIT DOSE CUPS PO SCH ×2 (10:00→21:06)
[2017-04-21] MEDS ORDERED: PATIENT'S OWN MEDICATION (NON-FORMULARY) (Meloxicam [Mobic] 15 MG) PO SCH (10:00)
[2017-04-21] MEDS ORDERED: PANTOPRAZOLE 40 MG TABLET (FP) PO SCH (10:00)
[2017-04-21] MEDS ORDERED: GLUCOSAMINE SULFATE DIPOT CHLR PO SCH (10:00)
[2017-04-21] MEDS ORDERED: RANITIDINE HCL 150 MG TABLET (FP) PO SCH (10:00)
--- NOTE | 2017-04-21 11:36 | EKG ---
Test Reason : Blood Pressure : / mmHG Vent. Rate : 073 BPM Atrial Rate : 500 BPM P-R Int : 000 ms QRS Dur : 104 ms QT Int : 416 ms P-R-T Axes : 000 045 197 degrees QTc Int : 458 ms ATRIAL FIBRILLATION ABNORMAL ECG WHEN COMPARED WITH ECG OF 14-MAR-2017 01:30, NO SIGNIFICANT CHANGE WAS FOUND Confirmed by PATRICK WALLACE MD ([id number]) on 04/21/2017 11:36:05 AM Referred By: Confirmed By:PATRICK WALLACE MD
--- NOTE | 2017-04-21 12:02 | PN ---
Progress Note (short form) - Note Progress Note: Renal Follow up for ESRD on HD Pt s/p recent admission and discharge, readmitted from [place] s/p fall This is a 77 year old gentleman with PMhx of ESRD on HD (started in [place]) Hypertension, DVT, PVD s/p right AKA s/p recent admission for Le wound that required amputation now presents from [place] s/p fall. Pt was on coumadin but did not show any active bleed s/p fall. Fall appears to be unwitnessed. CT head was negative for any bleeds. Pt without any acute complaints. Last dialysis was Tuesday prior to discharge. K was 5.7 in the ER. S/p Dialysis yesterday evening. Vital Signs Temperature 97.7 F 04/21/17 05:00 Pulse Rate 79 04/21/17 05:00 Respiratory Rate 20 04/21/17 05:45 Blood Pressure 103/62 04/21/17 05:00 O2 Sat by Pulse Oximetry (%) 98 04/21/17 05:45 Intake & Output 04/18/17 04/19/17 04/20/17 04/21/17 23:59 23:59 23:59 23:59 Intake Total 50 Balance 50 Weight 63.049 kg 56.245 kg NAD awake and alert NC/AT, No JVD, Neck supple RRR, no M/R Soft NT/ND Abd right AKA, Left BKA in dressing (clean) left arm AVF + thrill CBC, BMP 04/21/17 06:00 04/21/17 06:00 Current Medications Acetaminophen (Tylenol -) 650 mg PO Q6H PRN PRN Reason: FEVER OR PAIN Alprazolam (Xanax -) 0.25 mg PO HS [facility] Last Admin: 04/20/17 23:40 Dose: 0.25 mg Amino Acids (Prosource No Carb Liquid Pkt) 30 ml PO BID@0800,1730 [facility] Last Admin: 04/21/17 08:48 Dose: 30 ml Budesonide/Formoterol Fumarate (Symbicort 80/4.5mcg -) 2 puff IH BID [facility] Last Admin: 04/20/17 23:40 Dose: Not Given Carvedilol (Coreg -) 3.125 mg PO BID [facility] Last Admin: 04/21/17 09:57 Dose: 3.125 mg Cilostazol (Pletal -) 100 mg PO BID [facility] Last Admin: 04/21/17 09:59 Dose: 100 mg Docusate Sodium (Colace -) 300 mg PO HS [facility] Last Admin: 04/20/17 23:34 Dose: 300 mg Doxycycline Hyclate (Vibramycin -) 100 mg PO BID@1000,1800 [facility] Last Admin: 04/21/17 09:57 Dose: 100 mg Gabapentin (Neurontin -) 100 mg PO BID [facility] Last Admin: 04/21/17 09:57 Dose: 100 mg Midodrine (Proamatine -) 10 mg PO TID-MID [facility] Last Admin: 04/21/17 09:58 Dose: 10 mg Non-Formulary Medication (Glucosamine Sulfate Dipot Chlr [Glucosamine Sulfate]) 1,000 mg PO DAILY [facility] Non-Formulary Medication (Meloxicam [Mobic]) 15 mg PO DAILY [facility] Pantoprazole Sodium (Protonix -) 40 mg PO DAILY [facility] Last Admin: 04/21/17 09:57 Dose: 40 mg Quetiapine Fumarate (Seroquel -) 25 mg PO BID [facility] Last Admin: 04/20/17 23:38 Dose: 25 mg Rosuvastatin Calcium (Crestor -) 20 mg PO DAILY [facility] Last Admin: 04/21/17 09:57 Dose: 20 mg Silver Sulfadiazine (Silvadene -) 1 applic TP BID [facility] Sucralfate (Carafate Oral Suspension -) 0.5 gm PO BID [facility] Last Admin: 04/21/17 10:00 Dose: 0.5 gm Tramadol HCl (Ultram -) 50 mg PO Q4H PRN PRN Reason: PAIN Warfarin Sodium (Coumadin -) 2 mg PO DAILY@1800 [facility] 77 year old gentleman with PMhx of ESRD on HD (started in [place]) Hypertension, DVT, PVD s/p right AKA s/p recent admission for Le wound that required amputation now presents from [place] s/p fall. #Unwitnessed fall CT head negative no overt trauma or bleed on physical exam fall precautions #Hyperkalemia/ESRD on HD s/p Hd yesterday evening will continue HD 3x weekly as inpatient dose all meds for intermittent HD Renal Diet/Fluid restriction #PVD s/p BKA Vascular follow up on oral Abx as per ID from discharge re-evaluate need for IV Abx based on wound healing #Anemia in CKD will continue IVANIA with Hd #Thrombocytopenia Trend CBC, no heparin with Hd Thank you Will follow Raghu Boogie DO
[2017-04-21] MEDS: ACETAMINOPHEN 325 MG TABLET (FP) PO PRN (12:08)
[2017-04-21 13:09] LABS: PHOSPHOROUS 5.6 mg/dL (2.5-4.9)
--- NOTE | 2017-04-21 13:40 | PN ---
Physical Exam: SUBJECTIVE: Patient seen and examined, no acute issues, dose not appear distressed. OBJECTIVE: Vital Signs Period Temp Pulse Resp BP Sys/Coleman Pulse Ox Last 24 Hr 97.6 F-98.9 F 72-86 18-189 79-143/48-88 96-98 PE Neuro: awake, alert, cn 2-12intact confused at times Pulm: CTAB CV: s1 s2 irregular rate + 2/6 systolic murmur Abd: soft, nt, nd +bs Ext: R AKA amputation, R AVF, left BKA open stump, dressing in tact Laboratory Results - last 24 hr 04/21/17 04/21/17 06:00 06:00 WBC 4.2 RBC 3.47 L Hgb 9.8 L Hct 31.2 L MCV 90.0 MCH 28.4 MCHC 31.5 L RDW 20.7 H Plt Count 44 L D MPV 8.1 Neutrophils % 70.4 Lymphocytes % 11.4 Monocytes % 10.8 H Eosinophils % 6.2 H Basophils % 1.2 PT with INR INR PTT (Actin FS) Sodium 145 Potassium 4.5 D Chloride 103 Carbon Dioxide 31 Anion Gap 11 BUN 62 H D Creatinine 7.4 H D Creat Clearance w eGFR Random Glucose 69 L Calcium 8.3 L Phosphorus 4.2 D Magnesium 2.2 Total Bilirubin AST ALT Alkaline Phosphatase Total Protein Albumin Active Medications Generic Name Dose Route Start Last Admin Trade Name Freq PRN Reason Stop Dose Admin Acetaminophen 650 mg 04/20/17 21:50 04/21/17 12:08 Tylenol - PO 650 mg Q6H PRN Administration FEVER OR PAIN Alprazolam 0.25 mg 04/20/17 22:00 04/20/17 23:40 Xanax - PO 0.25 mg HS [facility] Administration Amino Acids 30 ml 04/21/17 08:00 04/21/17 08:48 Prosource No Carb Liquid Pkt PO 30 ml BID@0800,1730 [facility] Administration Budesonide/Formoterol Fumarate 2 puff 04/20/17 22:00 04/20/17 23:40 Symbicort 80/4.5mcg - IH Not Given BID [facility] Carvedilol 3.125 mg 04/20/17 22:00 04/21/17 09:57 Coreg - PO 3.125 mg BID [facility] Administration Cilostazol 100 mg 04/20/17 22:00 04/21/17 09:59 Pletal - PO 100 mg BID [facility] Administration Docusate Sodium 300 mg 04/20/17 22:00 04/20/17 23:34 Colace - PO 300 mg HS [facility] Administration Doxycycline Hyclate 100 mg 04/21/17 10:00 04/21/17 09:57 Vibramycin - PO 100 mg BID@1000,1800 [facility] Administration Gabapentin 100 mg 04/20/17 22:00 04/21/17 09:57 Neurontin - PO 100 mg BID [facility] Administration Midodrine 10 mg 04/21/17 10:00 04/21/17 09:58 Proamatine - PO 10 mg TID-MID [facility] Administration Non-Formulary Medication 1,000 mg 04/21/17 10:00 Glucosamine Sulfate Dipot Chlr [Glucosamine Sulfate] PO DAILY [facility] Non-Formulary Medication 15 mg 04/21/17 10:00 Meloxicam [Mobic] PO DAILY [facility] Pantoprazole Sodium 40 mg 04/21/17 10:00 04/21/17 09:57 Protonix - PO 40 mg DAILY [facility] Administration Quetiapine Fumarate 25 mg 04/20/17 22:00 04/20/17 23:38 Seroquel - PO 25 mg BID [facility] Administration Rosuvastatin Calcium 20 mg 04/21/17 10:00 04/21/17 09:57 Crestor - PO 20 mg DAILY [facility] Administration Silver Sulfadiazine 1 applic 04/20/17 22:30 Silvadene - TP BID [facility] Sucralfate 0.5 gm 04/20/17 22:00 04/21/17 10:00 Carafate Oral Suspension - PO 0.5 gm BID [facility] Administration Tramadol HCl 50 mg 04/20/17 21:50 Ultram - PO Q4H PRN PAIN Warfarin Sodium 2 mg 04/21/17 18:00 Coumadin - PO DAILY@1800 [facility] Assessment: 77 year old male with PMHx HTN, CAD, Afib, PVD, ESRD, anemia, COPD, GERD, anxiety, DVT, AAA-infrarenal, Hepatitis B, 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 Plan: 1. s/p fall - Head CT negative - Fall precautions 2. ESRD - HD per Renal service 3. L BKA/PVD - Will need AKA, tentatively scheduled Tuesday - Cont gabapentin for pain - Doxy BID per ID - D/w vascular 4. HTN/HLD/CAD - Cont home crestor, coreg 5. Afib, rate controlled - Cont warfarin - Daily INR 6. Thrombocytopenia - present on previous admission, labile, monitor 7. GERD - Hold protonix, if symptoms arise restart ppi 8. DVT PPX - On AC Visit type - Emergency Visit Emergency Visit: Yes ED Registration Date: 04/21/17 Care time: The patient presented to the Emergency Department on the above date and was hospitalized for further evaluation of their emergent condition. - New Patient This patient is new to me today: Yes Date on this admission: 04/21/17 - Critical Care Critical Care patient: No
[2017-04-21] MEDS: SILVER SULFADIAZINE 1% TOP CREAM 50 GM JAR TP SCH ×2 (14:08→22:00)
--- NOTE | 2017-04-21 15:44 | PN ---
Progress Note (short form) - Note Progress Note: Vascular surgery Pt seen and examined. Recently had fall at [facility]. Now has new wounds on left knee. Stump is open Place santyl to all wounds. Pt will need AKA now for definitive care. Will speak to family about procedure. Faizan rosas dO
[2017-04-21] MEDS ORDERED: WARFARIN NA 2 MG TABLET (UD) PO SCH (18:00)
[2017-04-21] MEDS: COLLAGENASE CLOSTRIDIUM HIST. 30 GRAMS TUBE TP SCH (18:53)
[2017-04-21] MEDS: ALPRAZolam 0.25 MG TABLET PO SCH (21:07)
[2017-04-21] MEDS: DOCUSATE SODIUM 100 MG CAPSULE (FP) PO SCH (21:08)
[2017-04-21] MEDS: traMADol HCL 50 MG TABLET PO PRN (21:09)
[2017-04-22 07:34] LABS: EOS % 6.7 % (0-4.5); HEMATOCRIT 28.7 % (35.4-49); HEMOGLOBIN 9.1 GM/dL (11.7-16.9); LYMPH % 15.6 % (8-40); MCH 28.5 pg (25.7-33.7); MCHC 31.6 g/dl (32.0-35.9); MEAN CELL VOLUME 89.9 fl (80-96); MEAN PLT VOLUME 7.8 fl (7.5-11.1); MONO % 13.7 % (3.8-10.2); PLATELET COUNT 43 K/MM3 (134-434); RBC 3.19 M/mm3 (4.00-5.60); RDW 20.3 % (11.9-15.9); WHITE BLOOD COUNT 4.5 K/mm3 (4.0-10.0)
[2017-04-22 07:50] LABS: ANION GAP 10 (8-16); BLOOD UREA NITROGEN 71 mg/dL (7-18); CALCIUM 7.7 mg/dL (8.5-10.1); CHLORIDE 104 mmol/L (98-107); CO2 28 mmol/L (21-32); GLUCOSE,RANDOM 78 mg/dL (74-106); POTASSIUM 4.7 mmol/L (3.5-5.1); SODIUM 142 mmol/L (136-145)
[2017-04-22 07:56] LABS: PROTHROMBIN TIME (PATIENT) 48.1 SEC (9.98-11.88)
[2017-04-22 07:59] LABS: CREATININE 8.1 mg/dL (0.7-1.3)
[2017-04-22] MEDS: AMINO ACIDS/PROTEIN HYDROLYS 30 ML LIQUID.PKT PO SCH ×2 (08:37→18:07)
[2017-04-22 08:42] LABS: INR 4.26 (0.82-1.09)
[2017-04-22] MEDS ORDERED: EPOETIN ALFA 10,000 UNIT/1 ML VIAL IVPUSH ONE (10:30)
--- NOTE | 2017-04-22 11:21 | PN ---
Progress Note (short form) - Note Progress Note: Vascular surgery patient seen and examined at bedside currently being dialyzed NAD lying in bed LLE wound dressing with minimal serosangenous drainage. Stump is open Right knee wound from fall is healing well Stump is open Place santyl to all wounds. Pt will need AKA next week Dr. Villa to speak to family about procedure. Case discussed with Dr. Villa
--- NOTE | 2017-04-22 11:27 | PN ---
Progress Note (short form) - Note Progress Note: Renal Follow up for ESRD on HD Pt seen and examined during dialysis sleep but arouseable BP stable on Hd avf with good flow, normal pressures goal UF is 2.5L Vital Signs Temperature 98.7 F 04/22/17 09:45 Pulse Rate 81 04/22/17 10:50 Respiratory Rate 18 04/22/17 10:50 Blood Pressure 112/55 04/22/17 10:50 O2 Sat by Pulse Oximetry (%) 98 04/21/17 20:37 Intake & Output 04/19/17 04/20/17 04/21/17 04/22/17 23:59 23:59 23:59 23:59 Intake Total 50 0 150 Balance 50 0 150 Weight 63.049 kg 56.245 kg NAD awake and alert NC/AT, No JVD, Neck supple RRR, no M/R Soft NT/ND Abd right AKA, Left BKA in dressing (clean) left arm AVF + thrill CBC, BMP 04/22/17 06:25 04/22/17 06:25 Current Medications Acetaminophen (Tylenol -) 650 mg PO Q6H PRN PRN Reason: FEVER OR PAIN Last Admin: 04/21/17 12:08 Dose: 650 mg Alprazolam (Xanax -) 0.25 mg PO HS [facility] Last Admin: 04/21/17 21:07 Dose: 0.25 mg Amino Acids (Prosource No Carb Liquid Pkt) 30 ml PO BID@0800,1730 [facility] Last Admin: 04/22/17 08:37 Dose: 30 ml Budesonide/Formoterol Fumarate (Symbicort 80/4.5mcg -) 2 puff IH BID [facility] Last Admin: 04/21/17 21:13 Dose: Not Given Carvedilol (Coreg -) 3.125 mg PO BID [facility] Last Admin: 04/21/17 21:07 Dose: 3.125 mg Cilostazol (Pletal -) 100 mg PO BID [facility] Last Admin: 04/21/17 21:08 Dose: 100 mg Collagenase (Santyl -) 1 applic TP DAILY [facility] Last Admin: 04/21/17 18:53 Dose: Not Given Docusate Sodium (Colace -) 300 mg PO HS [facility] Last Admin: 04/21/17 21:08 Dose: 300 mg Doxycycline Hyclate (Vibramycin -) 100 mg PO BID@1000,1800 [facility] Last Admin: 04/21/17 17:35 Dose: 100 mg Gabapentin (Neurontin -) 100 mg PO BID [facility] Last Admin: 04/21/17 21:07 Dose: 100 mg Midodrine (Proamatine -) 10 mg PO TID-MID [facility] Last Admin: 04/21/17 17:37 Dose: 10 mg Non-Formulary Medication (Glucosamine Sulfate Dipot Chlr [Glucosamine Sulfate]) 1,000 mg PO DAILY [facility] Non-Formulary Medication (Meloxicam [Mobic]) 15 mg PO DAILY [facility] Quetiapine Fumarate (Seroquel -) 25 mg PO BID [facility] Last Admin: 04/21/17 21:08 Dose: 25 mg Rosuvastatin Calcium (Crestor -) 20 mg PO DAILY [facility] Last Admin: 04/21/17 09:57 Dose: 20 mg Silver Sulfadiazine (Silvadene -) 1 applic TP BID [facility] Last Admin: 04/21/17 22:00 Dose: Not Given Sucralfate (Carafate Oral Suspension -) 0.5 gm PO BID [facility] Last Admin: 04/21/17 21:06 Dose: 0.5 gm Tramadol HCl (Ultram -) 50 mg PO Q4H PRN PRN Reason: PAIN Last Admin: 04/21/17 21:09 Dose: 50 mg Warfarin Sodium (Coumadin -) 2 mg PO DAILY@1800 [facility] Last Admin: 04/21/17 17:35 Dose: 2 mg 77 year old gentleman with PMhx of ESRD on HD (started in [place]) Hypertension, DVT, PVD s/p right AKA s/p recent admission for Le wound that required amputation now presents from [place] s/p fall. #Unwitnessed fall CT head negative no acute deficits fall precautions #Hyperkalemia/ESRD on HD getting HD today tolerating treatment well dose all meds for intermittent HD #PVD s/p BKA Vascular follow up for AKA next week #Anemia in CKD will continue IVANIA with Hd no acute indication for transfusion #Thrombocytopenia Trend CBC, no heparin with Hd Thank you Will follow Raghu Boogie DO
[2017-04-22] MEDS: SUCRALFATE 1 GM/10 ML UNIT DOSE CUPS PO SCH ×2 (13:45→21:49)
[2017-04-22] MEDS: DOXYCYCLINE HYCLATE 100 MG CAPSULE PO SCH ×2 (13:46→18:07)
[2017-04-22] MEDS: GABAPENTIN 100 MG CAPSULE (FP) PO SCH ×2 (13:46→21:50)
[2017-04-22] MEDS: ROSUVASTATIN CA 20 MG TABLET (FP) PO SCH (13:46)
[2017-04-22] MEDS: SILVER SULFADIAZINE 1% TOP CREAM 50 GM JAR TP SCH ×2 (13:47→22:00)
[2017-04-22] MEDS: QUEtiapine FUMARATE 25 MG TABLET (FP) PO SCH ×2 (13:47→21:51)
[2017-04-22] MEDS: MIDODRINE HCL 5 MG TABLET PO SCH ×4 (13:48→18:07)
[2017-04-22] MEDS: COLLAGENASE CLOSTRIDIUM HIST. 30 GRAMS TUBE TP SCH (13:48)
[2017-04-22] MEDS: CILOSTAZOL 100 MG TABLET PO SCH ×2 (13:49→21:51)
[2017-04-22] MEDS: CARVEDILOL 3.125 MG TABLET (FP) PO SCH ×2 (13:51→21:50)
[2017-04-22] MEDS: BUDESONIDE/FORMETEROL FUMARATE 80/4.5 mcg INHALER IH SCH ×2 (13:51→21:56)
--- NOTE | 2017-04-22 15:19 | PN ---
Progress Note (short form) - Note Progress Note: SUBJECTIVE: Patient seen and examined at the bedside, he has no complaints at this time Current Medications Generic Name Dose Route Start Last Admin Trade Name Antonieta PRN Reason Stop Dose Admin Acetaminophen 650 mg 04/20/17 21:50 04/21/17 12:08 Tylenol - PO 650 mg Q6H PRN Administration FEVER OR PAIN Alprazolam 0.25 mg 04/20/17 22:00 04/21/17 21:07 Xanax - PO 0.25 mg HS [facility] Administration Amino Acids 30 ml 04/21/17 08:00 04/22/17 08:37 Prosource No Carb Liquid Pkt PO 30 ml BID@0800,1730 [facility] Administration Budesonide/Formoterol Fumarate 2 puff 04/20/17 22:00 04/22/17 13:51 Symbicort 80/4.5mcg - IH 2 puff BID [facility] Administration Carvedilol 3.125 mg 04/20/17 22:00 04/22/17 13:51 Coreg - PO 3.125 mg BID [facility] Administration Cilostazol 100 mg 04/20/17 22:00 04/22/17 13:49 Pletal - PO 100 mg BID [facility] Administration Collagenase 1 applic 04/21/17 17:15 04/22/17 13:48 Santyl - TP 1 applic DAILY [facility] Administration Docusate Sodium 300 mg 04/20/17 22:00 04/21/17 21:08 Colace - PO 300 mg HS [facility] Administration Doxycycline Hyclate 100 mg 04/21/17 10:00 04/22/17 13:46 Vibramycin - PO 100 mg BID@1000,1800 [facility] Administration Gabapentin 100 mg 04/20/17 22:00 04/22/17 13:46 Neurontin - PO 100 mg BID [facility] Administration Midodrine 10 mg 04/21/17 10:00 04/22/17 14:02 Proamatine - PO 10 mg TID-MID [facility] Administration Non-Formulary Medication 1,000 mg 04/21/17 10:00 Glucosamine Sulfate Dipot Chlr [Glucosamine Sulfate] PO DAILY [facility] Non-Formulary Medication 15 mg 04/21/17 10:00 Meloxicam [Mobic] PO DAILY [facility] Quetiapine Fumarate 25 mg 04/20/17 22:00 04/22/17 13:47 Seroquel - PO 25 mg BID [facility] Administration Rosuvastatin Calcium 20 mg 04/21/17 10:00 04/22/17 13:46 Crestor - PO 20 mg DAILY [facility] Administration Silver Sulfadiazine 1 applic 04/20/17 22:30 04/22/17 13:47 Silvadene - TP Not Given BID [facility] Sucralfate 0.5 gm 04/20/17 22:00 04/22/17 13:45 Carafate Oral Suspension - PO 0.5 gm BID [facility] Administration Tramadol HCl 50 mg 04/20/17 21:50 04/21/17 21:09 Ultram - PO 50 mg Q4H PRN Administration PAIN OBJECTIVE: Vital Signs Period Temp Pulse Resp BP Sys/Coleman Pulse Ox Last 24 Hr 97.6 F-98.8 F 59-94 18-20 111-150/40-90 98 PE Neuro: awake, alert, cn 2-12intact confused at times Pulm: CTAB CV: s1 s2 irregular rate + 2/6 systolic murmur Abd: soft, nt, nd +bs Ext: R AKA amputation, left BKA open stump, dressing c/d/i CBCD WBC 4.5 K/mm3 (4.0-10.0) 04/22/17 06:25 RBC 3.19 M/mm3 (4.00-5.60) L 04/22/17 06:25 Hgb 9.1 GM/dL (11.7-16.9) L 04/22/17 06:25 Hct 28.7 % (35.4-49) L 04/22/17 06:25 MCV 89.9 fl (80-96) 04/22/17 06:25 MCHC 31.6 g/dl (32.0-35.9) L 04/22/17 06:25 RDW 20.3 % (11.9-15.9) H 04/22/17 06:25 Plt Count 43 K/MM3 (134-434) L 04/22/17 06:25 MPV 7.8 fl (7.5-11.1) 04/22/17 06:25 CMP Sodium 142 mmol/L (136-145) 04/22/17 06:25 Potassium 4.7 mmol/L (3.5-5.1) 04/22/17 06:25 Chloride 104 mmol/L (98-107) 04/22/17 06:25 Carbon Dioxide 28 mmol/L (21-32) 04/22/17 06:25 Anion Gap 10 (8-16) 04/22/17 06:25 BUN 71 mg/dL (7-18) H 04/22/17 06:25 Creatinine 8.1 mg/dL (0.7-1.3) H* 04/22/17 06:25 Creat Clearance w eGFR 5.28 (>60) 04/20/17 16:20 Random Glucose 78 mg/dL (74-106) 04/22/17 06:25 Calcium 7.7 mg/dL (8.5-10.1) L 04/22/17 06:25 Total Bilirubin 0.5 mg/dL (0.2-1.0) D 04/20/17 16:20 AST 13 U/L (15-37) L 04/20/17 16:20 ALT 11 U/L (12-78) L 04/20/17 16:20 Alkaline Phosphatase 120 U/L (45-117) H 04/20/17 16:20 Total Protein 5.2 g/dl (6.4-8.2) L 04/20/17 16:20 Albumin 2.2 g/dl (3.4-5.0) L 04/20/17 16:20 Assessment: 77 year old male with PMHx HTN, CAD, Afib, PVD, ESRD, anemia, COPD, GERD, anxiety, DVT, AAA-infrarenal, Hepatitis B, 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 Plan: 1. s/p fall - Head CT negative - Fall precautions 2. ESRD - HD per Renal service 3. L BKA/PVD - Will need AKA, tentatively scheduled Tuesday - Cont gabapentin for pain - Doxy BID per ID - Appreciate vascular surgery consult 4. HTN/HLD/CAD - Cont home crestor, coreg 5. Afib, rate controlled - INR supratherapeutic today, hold Coumadin tonight - F/u daily INR 6. Thrombocytopenia - present on previous admission, labile, monitor 7. GERD - Hold protonix, if symptoms arise restart ppi 8. DVT PPX - Hold anticoagulation, INR supratherapeutic CODE STATUS: FULL CODE Visit type - Emergency Visit Emergency Visit: Yes ED Registration Date: 04/21/17 Care time: The patient presented to the Emergency Department on the above date and was hospitalized for further evaluation of their emergent condition. - New Patient This patient is new to me today: Yes Date on this admission: 04/22/17 - Critical Care Critical Care patient: No
--- NOTE | 2017-04-22 16:40 | PN ---
Progress Note, Physician History of Present Illness: 77 y.o. 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 Pt is easily arousable and responsive without fever or chills. - Current Medication List Current Medications: Active Medications Acetaminophen (Tylenol -) 650 mg PO Q6H PRN PRN Reason: FEVER OR PAIN Last Admin: 04/21/17 12:08 Dose: 650 mg Alprazolam (Xanax -) 0.25 mg PO HS [facility] Last Admin: 04/21/17 21:07 Dose: 0.25 mg Amino Acids (Prosource No Carb Liquid Pkt) 30 ml PO BID@0800,1730 [facility] Last Admin: 04/22/17 08:37 Dose: 30 ml Budesonide/Formoterol Fumarate (Symbicort 80/4.5mcg -) 2 puff IH BID [facility] Last Admin: 04/22/17 13:51 Dose: 2 puff Carvedilol (Coreg -) 3.125 mg PO BID [facility] Last Admin: 04/22/17 13:51 Dose: 3.125 mg Cilostazol (Pletal -) 100 mg PO BID [facility] Last Admin: 04/22/17 13:49 Dose: 100 mg Collagenase (Santyl -) 1 applic TP DAILY [facility] Last Admin: 04/22/17 13:48 Dose: 1 applic Docusate Sodium (Colace -) 300 mg PO HS [facility] Last Admin: 04/21/17 21:08 Dose: 300 mg Doxycycline Hyclate (Vibramycin -) 100 mg PO BID@1000,1800 [facility] Last Admin: 04/22/17 13:46 Dose: 100 mg Gabapentin (Neurontin -) 100 mg PO BID [facility] Last Admin: 04/22/17 13:46 Dose: 100 mg Midodrine (Proamatine -) 10 mg PO TID-MID [facility] Last Admin: 04/22/17 14:02 Dose: 10 mg Non-Formulary Medication (Glucosamine Sulfate Dipot Chlr [Glucosamine Sulfate]) 1,000 mg PO DAILY [facility] Non-Formulary Medication (Meloxicam [Mobic]) 15 mg PO DAILY [facility] Quetiapine Fumarate (Seroquel -) 25 mg PO BID [facility] Last Admin: 04/22/17 13:47 Dose: 25 mg Rosuvastatin Calcium (Crestor -) 20 mg PO DAILY [facility] Last Admin: 04/22/17 13:46 Dose: 20 mg Silver Sulfadiazine (Silvadene -) 1 applic TP BID [facility] Last Admin: 04/22/17 13:47 Dose: Not Given Sucralfate (Carafate Oral Suspension -) 0.5 gm PO BID [facility] Last Admin: 04/22/17 13:45 Dose: 0.5 gm Tramadol HCl (Ultram -) 50 mg PO Q4H PRN PRN Reason: PAIN Last Admin: 04/21/17 21:09 Dose: 50 mg - Objective Vital Signs: Vital Signs Temperature 97.9 F 04/22/17 14:03 Pulse Rate 93 H 04/22/17 14:03 Respiratory Rate 18 04/22/17 14:03 Blood Pressure 139/79 04/22/17 14:03 O2 Sat by Pulse Oximetry (%) 98 04/22/17 13:00 Constitutional: Yes: No Distress Neck: Yes: Supple Cardiovascular: Yes: WNL Respiratory: Yes: Regular Gastrointestinal: Yes: Normal Bowel Sounds, Soft Extremities: Yes: Amputation (Rt AKA stump healed, Lt BKA stump open, no purulence noted) Labs: CBC, BMP 04/22/17 06:25 04/22/17 06:25 INR, PTT INR 4.26 (0.82-1.09) H* D 04/22/17 06:25 - ....Imaging X-ray: Report Reviewed Problem List - Problems (1) ESRD (end stage renal disease) Code(s): N18.6 - END STAGE RENAL DISEASE (2) Atrial fibrillation Code(s): I48.91 - UNSPECIFIED ATRIAL FIBRILLATION Qualifiers: Atrial fibrillation type: persistent Qualified Code(s): I48.1 - Persistent atrial fibrillation (3) Critical lower limb ischemia Code(s): I99.8 - OTHER DISORDER OF CIRCULATORY SYSTEM (4) HLD (hyperlipidemia) Code(s): E78.5 - HYPERLIPIDEMIA, UNSPECIFIED Qualifiers: Hyperlipidemia type: pure hypercholesterolemia Qualified Code(s): E78.00 - Pure hypercholesterolemia, unspecified (5) HTN (hypertension) Code(s): I10 - ESSENTIAL (PRIMARY) HYPERTENSION Qualifiers: Hypertension type: essential hypertension Qualified Code(s): I10 - Essential (primary) hypertension (6) Open wnd foot-complicated Code(s): S91.309A - UNSPECIFIED OPEN WOUND, UNSPECIFIED FOOT, INITIAL ENCOUNTER (7) Peripheral arterial disease Code(s): I73.9 - PERIPHERAL VASCULAR DISEASE, UNSPECIFIED Assessment/Plan LT BKA stump -non-healing wound, VRE previously isolated currently on Doxycycline (rash while on Daptomycin), plan d/c on Tuesday Lt AKA tentatively scheduled continue wound care
[2017-04-22] MEDS ORDERED: PT OWN MED DRAWER 7, Y5N ONE (18:05)
[2017-04-22] MEDS: traMADol HCL 50 MG TABLET PO PRN (18:09)
[2017-04-22] MEDS: DOCUSATE SODIUM 100 MG CAPSULE (FP) PO SCH (21:49)
[2017-04-22] MEDS: ALPRAZolam 0.25 MG TABLET PO SCH (21:50)
[2017-04-23 08:15] LABS: HEMATOCRIT 27.3 % (35.4-49); HEMOGLOBIN 8.7 GM/dL (11.7-16.9); MCH 28.8 pg (25.7-33.7); MCHC 31.9 g/dl (32.0-35.9); MEAN CELL VOLUME 90.4 fl (80-96); MEAN PLT VOLUME 7.9 fl (7.5-11.1); PLATELET COUNT 45 K/MM3 (134-434); RBC 3.02 M/mm3 (4.00-5.60); WHITE BLOOD COUNT 4.8 K/mm3 (4.0-10.0)
[2017-04-23 08:26] LABS: PROTHROMBIN TIME (PATIENT) 46.4 SEC (9.98-11.88)
[2017-04-23 08:45] LABS: INR 4.11 (0.82-1.09)
[2017-04-23] MEDS: AMINO ACIDS/PROTEIN HYDROLYS 30 ML LIQUID.PKT PO SCH ×2 (09:00→17:22)
[2017-04-23 09:15] LABS: ALBUMIN 2.1 g/dl (3.4-5.0); ALK PHOS 116 U/L (45-117); ANION GAP 10 (8-16); BILIRUBIN,TOTAL 0.4 mg/dL (0.2-1.0); BLOOD UREA NITROGEN 56 mg/dL (7-18); CALCIUM 7.8 mg/dL (8.5-10.1); CHLORIDE 104 mmol/L (98-107); CO2 30 mmol/L (21-32); GLUCOSE,RANDOM 73 mg/dL (74-106); POTASSIUM 3.9 mmol/L (3.5-5.1); SGOT/AST 13 U/L (15-37); SGPT/ALT 13 U/L (12-78); SODIUM 144 mmol/L (136-145); TOT PROT 4.9 g/dl (6.4-8.2)
[2017-04-23] MEDS: GABAPENTIN 100 MG CAPSULE (FP) PO SCH ×2 (10:05→21:18)
[2017-04-23] MEDS: SUCRALFATE 1 GM/10 ML UNIT DOSE CUPS PO SCH ×2 (10:05→21:19)
[2017-04-23] MEDS: DOXYCYCLINE HYCLATE 100 MG CAPSULE PO SCH ×2 (10:06→17:22)
[2017-04-23] MEDS: CILOSTAZOL 100 MG TABLET PO SCH ×2 (10:06→21:20)
[2017-04-23] MEDS: CARVEDILOL 3.125 MG TABLET (FP) PO SCH ×2 (10:06→21:20)
[2017-04-23] MEDS: MIDODRINE HCL 5 MG TABLET PO SCH ×3 (10:06→17:22)
[2017-04-23] MEDS: ROSUVASTATIN CA 20 MG TABLET (FP) PO SCH (10:06)
[2017-04-23] MEDS: COLLAGENASE CLOSTRIDIUM HIST. 30 GRAMS TUBE TP SCH (10:07)
[2017-04-23] MEDS: QUEtiapine FUMARATE 25 MG TABLET (FP) PO SCH ×2 (10:07→21:20)
[2017-04-23] MEDS: BUDESONIDE/FORMETEROL FUMARATE 80/4.5 mcg INHALER IH SCH ×2 (10:07→21:19)
--- NOTE | 2017-04-23 11:08 | PN ---
Progress Note (short form) - Note Progress Note: Renal Follow up for ESRD on HD Pt seen and examined at the bedside pt sleeping no overnight events s/p dialysis yesterday Vital Signs Temperature 97.1 F L 04/23/17 09:00 Pulse Rate 80 04/23/17 09:00 Respiratory Rate 16 04/23/17 09:00 Blood Pressure 109/49 04/23/17 09:00 O2 Sat by Pulse Oximetry (%) 96 04/22/17 21:00 Intake & Output 04/20/17 04/21/17 04/22/17 04/23/17 23:59 23:59 23:59 23:59 Intake Total 50 0 150 Balance 50 0 150 Weight 63.049 kg 56.245 kg NAD awake and alert NC/AT, No JVD, Neck supple RRR, no M/R Soft NT/ND Abd right AKA, Left BKA in dressing (clean) left arm AVF + thrill CBC, BMP 04/23/17 06:20 04/23/17 06:20 Current Medications Acetaminophen (Tylenol -) 650 mg PO Q6H PRN PRN Reason: FEVER OR PAIN Last Admin: 04/21/17 12:08 Dose: 650 mg Alprazolam (Xanax -) 0.25 mg PO HS [facility] Last Admin: 04/22/17 21:50 Dose: 0.25 mg Amino Acids (Prosource No Carb Liquid Pkt) 30 ml PO BID@0800,1730 [facility] Last Admin: 04/23/17 09:00 Dose: 30 ml Budesonide/Formoterol Fumarate (Symbicort 80/4.5mcg -) 2 puff IH BID [facility] Last Admin: 04/23/17 10:07 Dose: 2 puff Carvedilol (Coreg -) 3.125 mg PO BID [facility] Last Admin: 04/23/17 10:06 Dose: 3.125 mg Cilostazol (Pletal -) 100 mg PO BID [facility] Last Admin: 04/23/17 10:06 Dose: 100 mg Collagenase (Santyl -) 1 applic TP DAILY [facility] Last Admin: 04/23/17 10:07 Dose: 1 applic Docusate Sodium (Colace -) 300 mg PO HS [facility] Last Admin: 04/22/17 21:49 Dose: 300 mg Doxycycline Hyclate (Vibramycin -) 100 mg PO BID@1000,1800 [facility] Last Admin: 04/23/17 10:06 Dose: 100 mg Gabapentin (Neurontin -) 100 mg PO BID [facility] Last Admin: 04/23/17 10:05 Dose: 100 mg Midodrine (Proamatine -) 10 mg PO TID-MID [facility] Last Admin: 04/23/17 10:06 Dose: 10 mg Non-Formulary Medication (Glucosamine Sulfate Dipot Chlr [Glucosamine Sulfate]) 1,000 mg PO DAILY [facility] Non-Formulary Medication (Meloxicam [Mobic]) 15 mg PO DAILY [facility] Quetiapine Fumarate (Seroquel -) 25 mg PO BID [facility] Last Admin: 04/23/17 10:07 Dose: 25 mg Rosuvastatin Calcium (Crestor -) 20 mg PO DAILY [facility] Last Admin: 04/23/17 10:06 Dose: 20 mg Sucralfate (Carafate Oral Suspension -) 0.5 gm PO BID [facility] Last Admin: 04/23/17 10:05 Dose: 0.5 gm Tramadol HCl (Ultram -) 50 mg PO Q4H PRN PRN Reason: PAIN Last Admin: 04/22/17 18:09 Dose: 50 mg 77 year old gentleman with PMhx of ESRD on HD (started in [place]) Hypertension, DVT, PVD s/p right AKA s/p recent admission for Le wound that required amputation now presents [place] s/p fall. #Unwitnessed fall CT head negative no acute deficits fall precautions #Hyperkalemia/ESRD on HD s/p dialysis yesterday no acute indication for FAGOT HEATER today Renal diet #PVD s/p BKA Vascular follow up for AKA next week continue Abx as per ID #Anemia in CKD will continue IVANIA with Hd no acute indication for transfusion #Thrombocytopenia Trend CBC, no heparin with Hd Thank you Will follow Raghu Boogie DO
[2017-04-23] MEDS: traMADol HCL 50 MG TABLET PO PRN ×2 (12:30→17:22)
--- NOTE | 2017-04-23 13:45 | PN ---
Progress Note, Physician History of Present Illness: Pt alert, afebrile. No new complaints. - Current Medication List Current Medications: Active Medications Acetaminophen (Tylenol -) 650 mg PO Q6H PRN PRN Reason: FEVER OR PAIN Last Admin: 04/21/17 12:08 Dose: 650 mg Alprazolam (Xanax -) 0.25 mg PO HS [facility] Last Admin: 04/22/17 21:50 Dose: 0.25 mg Amino Acids (Prosource No Carb Liquid Pkt) 30 ml PO BID@0800,1730 [facility] Last Admin: 04/23/17 09:00 Dose: 30 ml Budesonide/Formoterol Fumarate (Symbicort 80/4.5mcg -) 2 puff IH BID [facility] Last Admin: 04/23/17 10:07 Dose: 2 puff Carvedilol (Coreg -) 3.125 mg PO BID [facility] Last Admin: 04/23/17 10:06 Dose: 3.125 mg Cilostazol (Pletal -) 100 mg PO BID [facility] Last Admin: 04/23/17 10:06 Dose: 100 mg Collagenase (Santyl -) 1 applic TP DAILY [facility] Last Admin: 04/23/17 10:07 Dose: 1 applic Docusate Sodium (Colace -) 300 mg PO HS [facility] Last Admin: 04/22/17 21:49 Dose: 300 mg Doxycycline Hyclate (Vibramycin -) 100 mg PO BID@1000,1800 [facility] Last Admin: 04/23/17 10:06 Dose: 100 mg Gabapentin (Neurontin -) 100 mg PO BID [facility] Last Admin: 04/23/17 10:05 Dose: 100 mg Midodrine (Proamatine -) 10 mg PO TID-MID [facility] Last Admin: 04/23/17 10:06 Dose: 10 mg Non-Formulary Medication (Glucosamine Sulfate Dipot Chlr [Glucosamine Sulfate]) 1,000 mg PO DAILY [facility] Non-Formulary Medication (Meloxicam [Mobic]) 15 mg PO DAILY [facility] Quetiapine Fumarate (Seroquel -) 25 mg PO BID [facility] Last Admin: 04/23/17 10:07 Dose: 25 mg Rosuvastatin Calcium (Crestor -) 20 mg PO DAILY [facility] Last Admin: 04/23/17 10:06 Dose: 20 mg Sucralfate (Carafate Oral Suspension -) 0.5 gm PO BID [facility] Last Admin: 04/23/17 10:05 Dose: 0.5 gm Tramadol HCl (Ultram -) 50 mg PO Q4H PRN PRN Reason: PAIN Last Admin: 04/23/17 12:30 Dose: 50 mg - Objective Vital Signs: Vital Signs Temperature 97.1 F L 04/23/17 09:00 Pulse Rate 80 04/23/17 09:00 Respiratory Rate 16 04/23/17 09:00 Blood Pressure 109/49 04/23/17 09:00 O2 Sat by Pulse Oximetry (%) 96 04/22/17 21:00 Constitutional: Yes: No Distress, Calm Cardiovascular: Yes: Regular Rate and Rhythm Respiratory: Yes: Regular Gastrointestinal: Yes: Normal Bowel Sounds, Soft Extremities: Yes: Amputation (Rt AKA - no drainage Lt BKA- open wound, dressed) Neurological: Yes: Alert Labs: CBC, BMP 04/23/17 06:20 04/23/17 06:20 INR, PTT INR 4.11 (0.82-1.09) H* 04/23/17 06:20 Problem List - Problems (1) ESRD (end stage renal disease) Code(s): N18.6 - END STAGE RENAL DISEASE (2) Atrial fibrillation Code(s): I48.91 - UNSPECIFIED ATRIAL FIBRILLATION Qualifiers: Atrial fibrillation type: persistent Qualified Code(s): I48.1 - Persistent atrial fibrillation (3) Critical lower limb ischemia Code(s): I99.8 - OTHER DISORDER OF CIRCULATORY SYSTEM (4) HLD (hyperlipidemia) Code(s): E78.5 - HYPERLIPIDEMIA, UNSPECIFIED Qualifiers: Hyperlipidemia type: pure hypercholesterolemia Qualified Code(s): E78.00 - Pure hypercholesterolemia, unspecified (5) HTN (hypertension) Code(s): I10 - ESSENTIAL (PRIMARY) HYPERTENSION Qualifiers: Hypertension type: essential hypertension Qualified Code(s): I10 - Essential (primary) hypertension (6) Open wnd foot-complicated Code(s): S91.309A - UNSPECIFIED OPEN WOUND, UNSPECIFIED FOOT, INITIAL ENCOUNTER (7) Peripheral arterial disease Code(s): I73.9 - PERIPHERAL VASCULAR DISEASE, UNSPECIFIED Assessment/Plan LT BKA stump -non-healing wound, stump had been infected with VRE currently on Doxycycline , september d/c after this weekend Lt AKA tentatively scheduled continue wound care
--- NOTE | 2017-04-23 15:02 | PN ---
Progress Note (short form) - Note Progress Note: SUBJECTIVE: Patient seen and examined at the bedside, he has no complaints at this time Current Medications Generic Name Dose Route Start Last Admin Trade Name Antonieta PRN Reason Stop Dose Admin Acetaminophen 650 mg 04/20/17 21:50 04/21/17 12:08 Tylenol - PO 650 mg Q6H PRN Administration FEVER OR PAIN Alprazolam 0.25 mg 04/20/17 22:00 04/22/17 21:50 Xanax - PO 0.25 mg HS OTIS Administration Amino Acids 30 ml 04/21/17 08:00 04/23/17 09:00 Prosource No Carb Liquid Pkt PO 30 ml BID@0800,1730 OTIS Administration Budesonide/Formoterol Fumarate 2 puff 04/20/17 22:00 04/23/17 10:07 Symbicort 80/4.5mcg - IH 2 puff BID OTIS Administration Carvedilol 3.125 mg 04/20/17 22:00 04/23/17 10:06 Coreg - PO 3.125 mg BID OTIS Administration Cilostazol 100 mg 04/20/17 22:00 04/23/17 10:06 Pletal - PO 100 mg BID OTIS Administration Collagenase 1 applic 04/21/17 17:15 04/23/17 10:07 Santyl - TP 1 applic DAILY OTIS Administration Docusate Sodium 300 mg 04/20/17 22:00 04/22/17 21:49 Colace - PO 300 mg HS OTIS Administration Doxycycline Hyclate 100 mg 04/21/17 10:00 04/23/17 10:06 Vibramycin - PO 100 mg BID@1000,1800 [facility] Administration Gabapentin 100 mg 04/20/17 22:00 04/23/17 10:05 Neurontin - PO 100 mg BID OT[facility] Administration Midodrine 10 mg 04/21/17 10:00 04/23/17 14:51 Proamatine - PO 10 mg TID-MID [facility] Administration Non-Formulary Medication 1,000 mg 04/21/17 10:00 Glucosamine Sulfate Dipot Chlr [Glucosamine Sulfate] PO DAILY [facility] Non-Formulary Medication 15 mg 04/21/17 10:00 Meloxicam [Mobic] PO DAILY OTIS Quetiapine Fumarate 25 mg 04/20/17 22:00 04/23/17 10:07 Seroquel - PO 25 mg BID OT[facility] Administration Rosuvastatin Calcium 20 mg 04/21/17 10:00 04/23/17 10:06 Crestor - PO 20 mg DAILY [facility] Administration Sucralfate 0.5 gm 04/20/17 22:00 04/23/17 10:05 Carafate Oral Suspension - PO 0.5 gm BID OTIS Administration Tramadol HCl 50 mg 04/20/17 21:50 04/23/17 12:30 Ultram - PO 50 mg Q4H PRN Administration PAIN OBJECTIVE: Vital Signs Period Temp Pulse Resp BP Sys/Coleman Pulse Ox Last 24 Hr 97.1 F-98.7 F 78-94 16-20 100-124/45-69 96 PE Neuro: awake, alert, cn 2-12intact confused at times Pulm: CTAB CV: s1 s2 irregular rate + 2/6 systolic murmur Abd: soft, nt, nd +bs Ext: R AKA amputation, left BKA open stump, dressing c/d/i CBCD WBC 4.8 K/mm3 (4.0-10.0) 04/23/17 06:20 RBC 3.02 M/mm3 (4.00-5.60) L 04/23/17 06:20 Hgb 8.7 GM/dL (11.7-16.9) L 04/23/17 06:20 Hct 27.3 % (35.4-49) L 04/23/17 06:20 MCV 90.4 fl (80-96) 04/23/17 06:20 MCHC 31.9 g/dl (32.0-35.9) L 04/23/17 06:20 RDW 20.0 % (11.9-15.9) H 04/23/17 06:20 Plt Count 45 K/MM3 (134-434) L 04/23/17 06:20 MPV 7.9 fl (7.5-11.1) 04/23/17 06:20 CMP Sodium 144 mmol/L (136-145) 04/23/17 06:20 Potassium 3.9 mmol/L (3.5-5.1) 04/23/17 06:20 Chloride 104 mmol/L (98-107) 04/23/17 06:20 Carbon Dioxide 30 mmol/L (21-32) 04/23/17 06:20 Anion Gap 10 (8-16) 04/23/17 06:20 BUN 56 mg/dL (7-18) H D 04/23/17 06:20 Creatinine 7.0 mg/dL (0.7-1.3) H 04/23/17 06:20 Creat Clearance w eGFR 7.69 (>60) 04/23/17 06:20 Random Glucose 73 mg/dL (74-106) L 04/23/17 06:20 Calcium 7.8 mg/dL (8.5-10.1) L 04/23/17 06:20 Total Bilirubin 0.4 mg/dL (0.2-1.0) 04/23/17 06:20 AST 13 U/L (15-37) L 04/23/17 06:20 ALT 13 U/L (12-78) 04/23/17 06:20 Alkaline Phosphatase 116 U/L (45-117) 04/23/17 06:20 Total Protein 4.9 g/dl (6.4-8.2) L 04/23/17 06:20 Albumin 2.1 g/dl (3.4-5.0) L 04/23/17 06:20 Assessment: 77 year old male with PMHx HTN, CAD, Afib, PVD, ESRD, anemia, COPD, GERD, anxiety, DVT, AAA-infrarenal, Hepatitis B, 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 Plan: 1. s/p fall - Head CT negative - Fall precautions 2. ESRD - HD per Renal service 3. L BKA/PVD - Will need AKA, tentatively scheduled Tuesday - Cont gabapentin for pain - Doxy BID per ID - Appreciate vascular surgery consult 4. HTN/HLD/CAD - Cont home crestor, coreg 5. Afib, rate controlled - INR supratherapeutic today, hold Coumadin tonight - F/u daily INR 6. Thrombocytopenia - present on previous admission, labile, monitor 7. GERD - Hold protonix, if symptoms arise restart ppi 8. DVT PPX - Hold anticoagulation, INR supratherapeutic CODE STATUS: FULL CODE Visit type - Emergency Visit Emergency Visit: Yes ED Registration Date: 04/21/17 Care time: The patient presented to the Emergency Department on the above date and was hospitalized for further evaluation of their emergent condition. - New Patient This patient is new to me today: No - Critical Care Critical Care patient: No
[2017-04-23] MEDS: DOCUSATE SODIUM 100 MG CAPSULE (FP) PO SCH (21:18)
[2017-04-23] MEDS: ALPRAZolam 0.25 MG TABLET PO SCH (21:19)
[2017-04-24 07:05] LABS: BASO % 0.7 % (0-2.0); EOS % 7.4 % (0-4.5); HEMOGLOBIN 9.2 GM/dL (11.7-16.9); LYMPH % 11.3 % (8-40); MCH 28.6 pg (25.7-33.7); MCHC 31.8 g/dl (32.0-35.9); MEAN CELL VOLUME 89.8 fl (80-96); MONO % 12.8 % (3.8-10.2); NEUT % 67.8 % (42.8-82.8); PLATELET COUNT 60 K/MM3 (134-434); PROTHROMBIN TIME (PATIENT) 33.9 SEC (9.98-11.88); RBC 3.23 M/mm3 (4.00-5.60); RDW 20.2 % (11.9-15.9); WHITE BLOOD COUNT 6.5 K/mm3 (4.0-10.0)
[2017-04-24 07:17] LABS: ALBUMIN 2.3 g/dl (3.4-5.0); ANION GAP 11 (8-16); BILIRUBIN,TOTAL 0.5 mg/dL (0.2-1.0); BLOOD UREA NITROGEN 79 mg/dL (7-18); CALCIUM 8.3 mg/dL (8.5-10.1); CHLORIDE 101 mmol/L (98-107); CO2 31 mmol/L (21-32); GLUCOSE,RANDOM 84 mg/dL (74-106); POTASSIUM 4.1 mmol/L (3.5-5.1); SGOT/AST 13 U/L (15-37); SGPT/ALT 13 U/L (12-78); SODIUM 143 mmol/L (136-145)
[2017-04-24 07:23] LABS: ALK PHOS 127 U/L (45-117)
[2017-04-24 07:32] LABS: CREATININE 7.8 mg/dL (0.7-1.3)
[2017-04-24] MEDS ORDERED: PT OWN MED DRAWER 7, Y5N ONE ×3 (08:31→18:25)
[2017-04-24] MEDS: AMINO ACIDS/PROTEIN HYDROLYS 30 ML LIQUID.PKT PO SCH ×2 (08:47→17:46)
[2017-04-24] MEDS: QUEtiapine FUMARATE 25 MG TABLET (FP) PO SCH ×2 (09:03→21:11)
[2017-04-24] MEDS: MIDODRINE HCL 5 MG TABLET PO SCH ×3 (09:04→18:27)
[2017-04-24] MEDS: CARVEDILOL 3.125 MG TABLET (FP) PO SCH ×2 (09:04→21:10)
[2017-04-24] MEDS: DOXYCYCLINE HYCLATE 100 MG CAPSULE PO SCH ×2 (09:05→18:27)
[2017-04-24] MEDS: BUDESONIDE/FORMETEROL FUMARATE 80/4.5 mcg INHALER IH SCH ×2 (09:05→21:11)
[2017-04-24] MEDS: ROSUVASTATIN CA 20 MG TABLET (FP) PO SCH (09:09)
[2017-04-24] MEDS: COLLAGENASE CLOSTRIDIUM HIST. 30 GRAMS TUBE TP SCH (09:12)
[2017-04-24] MEDS: SUCRALFATE 1 GM/10 ML UNIT DOSE CUPS PO SCH ×2 (09:26→21:10)
[2017-04-24] MEDS: CILOSTAZOL 100 MG TABLET PO SCH ×2 (09:27→21:11)
[2017-04-24] MEDS: GABAPENTIN 100 MG CAPSULE (FP) PO SCH ×2 (09:28→21:10)
--- NOTE | 2017-04-24 13:22 | PN ---
Physical Exam: SUBJECTIVE: Patient seen and examined Pt c/o LLE pain,no other complains. OBJECTIVE: Vital Signs Period Temp Pulse Resp BP Sys/Coleman Pulse Ox Last 24 Hr 97.1 F-98.6 F 79-91 18-20 91-123/54-65 96-100 GENERAL: The patient is awake, alert, not in any acute distress. HEAD: Normal with no signs of trauma. EYES: PERRL, extraocular movements intact, sclera anicteric, conjunctiva clear. No ptosis. ENT: Ears normal, nares patent, oropharynx clear without exudates, moist mucous membranes. NECK: Trachea midline, full range of motion, supple. LUNGS: Breath sounds equal, clear to auscultation bilaterally, no wheezes, no crackles, no accessory muscle use. HEART:Irregular, + systolic murmur ABDOMEN: Soft, non-tender, nondistended, normoactive bowel sounds, no guarding, no rebound, no hepatosplenomegaly, no masses. EXTREMITIES: Rt AKA amputation, left BKA,stump wound intact with dsg PSYCH: Normal mood, normal affect,forgetful SKIN: left BKA,stump wound intact with dsg Laboratory Results - last 24 hr 04/24/17 04/24/17 04/24/17 05:30 05:30 05:30 WBC 6.5 D RBC 3.23 L Hgb 9.2 L Hct 29.0 L MCV 89.8 MCH 28.6 MCHC 31.8 L RDW 20.2 H Plt Count 60 L D MPV 8.0 Neutrophils % 67.8 Lymphocytes % 11.3 D Monocytes % 12.8 H Eosinophils % 7.4 H Basophils % 0.7 PT with INR 33.90 H INR 3.00 H Sodium 143 Potassium 4.1 Chloride 101 Carbon Dioxide 31 Anion Gap 11 BUN 79 H D Creatinine 7.8 H* Creat Clearance w eGFR 6.79 Random Glucose 84 Calcium 8.3 L Total Bilirubin 0.5 D AST 13 L ALT 13 Alkaline Phosphatase 127 H Total Protein 5.0 L Albumin 2.3 L Active Medications Generic Name Dose Route Start Last Admin Trade Name Freq PRN Reason Stop Dose Admin Acetaminophen 650 mg 04/20/17 21:50 04/21/17 12:08 Tylenol - PO 650 mg Q6H PRN Administration FEVER OR PAIN Alprazolam 0.25 mg 04/20/17 22:00 04/23/17 21:19 Xanax - PO 0.25 mg HS OTIS Administration Amino Acids 30 ml 04/21/17 08:00 04/24/17 08:47 Prosource No Carb Liquid Pkt PO 30 ml BID@0800,1730 OTIS Administration Budesonide/Formoterol Fumarate 2 puff 04/20/17 22:00 04/24/17 09:05 Symbicort 80/4.5mcg - IH 2 puff BID OTIS Administration Carvedilol 3.125 mg 04/20/17 22:00 04/24/17 09:04 Coreg - PO 3.125 mg BID OTIS Administration Cilostazol 100 mg 04/20/17 22:00 04/24/17 09:27 Pletal - PO 100 mg BID OTIS Administration Collagenase 1 applic 04/21/17 17:15 04/24/17 09:12 Santyl - TP 1 applic DAILY OTIS Administration Docusate Sodium 300 mg 04/20/17 22:00 04/23/17 21:18 Colace - PO 300 mg HS OTIS Administration Doxycycline Hyclate 100 mg 04/21/17 10:00 04/24/17 09:05 Vibramycin - PO 100 mg BID@1000,1800 OTIS Administration Gabapentin 100 mg 04/20/17 22:00 04/24/17 09:28 Neurontin - PO 100 mg BID OTIS Administration Midodrine 10 mg 04/21/17 10:00 04/24/17 09:04 Proamatine - PO 10 mg TID-MID OTIS Administration Quetiapine Fumarate 25 mg 04/20/17 22:00 04/24/17 09:03 Seroquel - PO 25 mg BID OTIS Administration Rosuvastatin Calcium 20 mg 04/21/17 10:00 04/24/17 09:09 Crestor - PO 20 mg DAILY OTIS Administration Sucralfate 0.5 gm 04/20/17 22:00 04/24/17 09:26 Carafate Oral Suspension - PO 0.5 gm BID OTIS Administration Tramadol HCl 50 mg 04/24/17 09:32 Ultram - PO Q6H PRN PAIN ASSESSMENT/PLAN: This is a 77 year old male with PMHx HTN, CAD, Afib, PVD, ESRD, anemia, COPD, GERD, anxiety, DVT, AAA-infrarenal, Hepatitis B, 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 *s/p fall - Head CT negative - Fall precautions * ESRD- regular dialysis in M/W/F - HD per Renal service * L BKA/PVD -vascular following, rec Lt AKA, tentatively scheduled Tuesday - wound care with Santyl - will cont gabapentin for pain - Doxy BID per ID - Appreciate vascular surgery consult *HTN/HLD/CAD - Cont home crestor, coreg * Afib, rate controlled - INR therapeutic today at 3, will hold off on Coumadin tonight - F/u daily INR *Thrombocytopenia - present on previous admission, labile, monitor *GERD - Hold protonix, if symptoms arise restart ppi *DVT PPX: Therapeutic INR, will hold off on AC for possible sx CODE STATUS: FULL CODE Visit type - Emergency Visit Emergency Visit: Yes ED Registration Date: 04/21/17 Care time: The patient presented to the Emergency Department on the above date and was hospitalized for further evaluation of their emergent condition. - New Patient This patient is new to me today: Yes Date on this admission: 04/24/17 - Critical Care Critical Care patient: No
[2017-04-24] MEDS: ACETAMINOPHEN 325 MG TABLET (FP) PO PRN (15:54)
[2017-04-24] MEDS: traMADol HCL 50 MG TABLET PO PRN (18:34)
[2017-04-24] MEDS: DOCUSATE SODIUM 100 MG CAPSULE (FP) PO SCH (21:09)
[2017-04-24] MEDS: ALPRAZolam 0.25 MG TABLET PO SCH (21:10)
[2017-04-25] MEDS ORDERED: EPOETIN ALFA 2,000 UNIT/1 ML VIAL IVPUSH ONE (06:00)
[2017-04-25] MEDS: traMADol HCL 50 MG TABLET PO PRN ×2 (06:41→15:46)
[2017-04-25 07:34] LABS: HEMATOCRIT 27.1 % (35.4-49); HEMOGLOBIN 8.7 GM/dL (11.7-16.9); MCH 28.7 pg (25.7-33.7); MEAN CELL VOLUME 89.7 fl (80-96); MEAN PLT VOLUME 7.6 fl (7.5-11.1); PLATELET COUNT 58 K/MM3 (134-434); RBC 3.02 M/mm3 (4.00-5.60); RDW 20.4 % (11.9-15.9)
[2017-04-25 08:04] LABS: CHLORIDE 100 mmol/L (98-107); POTASSIUM 4.6 mmol/L (3.5-5.1); SODIUM 140 mmol/L (136-145)
[2017-04-25 08:07] LABS: INR 2.06 (0.82-1.09); PROTHROMBIN TIME (PATIENT) 23.3 SEC (9.98-11.88)
[2017-04-25 08:51] LABS: ANION GAP 13 (8-16); BLOOD UREA NITROGEN 88 mg/dL (7-18); CALCIUM 8.3 mg/dL (8.5-10.1); CO2 27 mmol/L (21-32); GLUCOSE,RANDOM 68 mg/dL (74-106)
[2017-04-25] MEDS: AMINO ACIDS/PROTEIN HYDROLYS 30 ML LIQUID.PKT PO SCH ×2 (09:00→16:57)
[2017-04-25 09:26] LABS: CREATININE 8.5 mg/dL (0.7-1.3)
[2017-04-25] MEDS: GABAPENTIN 100 MG CAPSULE (FP) PO SCH ×2 (09:37→21:47)
[2017-04-25] MEDS: DOXYCYCLINE HYCLATE 100 MG CAPSULE PO SCH ×2 (09:37→17:01)
[2017-04-25] MEDS: SUCRALFATE 1 GM/10 ML UNIT DOSE CUPS PO SCH ×2 (09:37→21:46)
[2017-04-25] MEDS: CARVEDILOL 3.125 MG TABLET (FP) PO SCH ×2 (09:38→21:47)
[2017-04-25] MEDS: ROSUVASTATIN CA 20 MG TABLET (FP) PO SCH (09:39)
[2017-04-25] MEDS: MIDODRINE HCL 5 MG TABLET PO SCH ×3 (09:39→17:01)
[2017-04-25] MEDS: CILOSTAZOL 100 MG TABLET PO SCH ×2 (09:40→21:48)
[2017-04-25] MEDS: QUEtiapine FUMARATE 25 MG TABLET (FP) PO SCH ×2 (09:40→21:48)
[2017-04-25] MEDS: BUDESONIDE/FORMETEROL FUMARATE 80/4.5 mcg INHALER IH SCH ×2 (09:41→21:48)
[2017-04-25] MEDS ORDERED: EPOETIN ALFA 20,000 UNIT/1 ML VIAL IVPUSH ONE (11:00)
--- NOTE | 2017-04-25 11:06 | PN ---
Progress Note (short form) - Note Progress Note: Vascular surgery patient seen and examined at bedside currently being dialyzed NAD lying in bed LLE wound dressing with no drainage. Stump is open Right knee wound from fall is healing well Stump is open Place santyl to all wounds. Pt will need AKA-scheduled for this tuesday please medically optimize patient continue to hold coumadin Start heparin gtt Discussed with DARION Gracia Case discussed with Dr. Villa
[2017-04-25] MEDS ORDERED: HEPARIN NA (PORCINE) 5,000 UNITS/ML 1ML VIAL IVPUSH PRN ×2 (12:11)
[2017-04-25] MEDS: COLLAGENASE CLOSTRIDIUM HIST. 30 GRAMS TUBE TP SCH (14:15)
[2017-04-25] MEDS: HEPARIN INFUSION - 25,000 UNITS/500 ML INFUS.BAG IVPB SCH ×2 (15:44→15:47)
--- NOTE | 2017-04-25 15:56 | PN ---
Progress Note, Physician History of Present Illness: Pt is alert, afebrile. No new events. - Current Medication List Current Medications: Active Medications Acetaminophen (Tylenol -) 650 mg PO Q6H PRN PRN Reason: FEVER OR PAIN Last Admin: 04/24/17 15:54 Dose: 650 mg Alprazolam (Xanax -) 0.25 mg PO HS [facility] Last Admin: 04/24/17 21:10 Dose: 0.25 mg Amino Acids (Prosource No Carb Liquid Pkt) 30 ml PO BID@0800,1730 [facility] Last Admin: 04/25/17 09:00 Dose: 30 ml Budesonide/Formoterol Fumarate (Symbicort 80/4.5mcg -) 2 puff IH BID [facility] Last Admin: 04/25/17 09:41 Dose: 2 puff Carvedilol (Coreg -) 3.125 mg PO BID [facility] Last Admin: 04/25/17 09:38 Dose: Not Given Cilostazol (Pletal -) 100 mg PO BID [facility] Last Admin: 04/25/17 09:40 Dose: 100 mg Collagenase (Santyl -) 1 applic TP DAILY [facility] Last Admin: 04/25/17 14:15 Dose: 1 applic Docusate Sodium (Colace -) 300 mg PO HS [facility] Last Admin: 04/24/17 21:09 Dose: 300 mg Doxycycline Hyclate (Vibramycin -) 100 mg PO BID@1000,1800 [facility] Last Admin: 04/25/17 09:37 Dose: 100 mg Gabapentin (Neurontin -) 100 mg PO BID [facility] Last Admin: 04/25/17 09:37 Dose: 100 mg Heparin Sodium (Porcine) (Heparin -) 1,000 unit IVPUSH PRN PRN PRN Reason: Heparin Heparin Sodium (Porcine) (Heparin -) 5,000 unit IVPUSH PRN PRN PRN Reason: Heparin Last Admin: 04/25/17 15:46 Dose: 5,000 unit Heparin Sodium/Dextrose (Heparin Infusion -) 25,000 units in 500 mls @ 16 mls/ hr IVPB TITR OTIS; 800 UNITS/HR PRN Reason: Protocol Last Admin: 04/25/17 15:47 Dose: 950 units/hr, 19 mls/hr Midodrine (Proamatine -) 10 mg PO TID-MID [facility] Last Admin: 04/25/17 14:14 Dose: 10 mg Quetiapine Fumarate (Seroquel -) 25 mg PO BID [facility] Last Admin: 04/25/17 09:40 Dose: 25 mg Rosuvastatin Calcium (Crestor -) 20 mg PO DAILY [facility] Last Admin: 04/25/17 09:39 Dose: 20 mg Sucralfate (Carafate Oral Suspension -) 0.5 gm PO BID [facility] Last Admin: 04/25/17 09:37 Dose: 0.5 gm Tramadol HCl (Ultram -) 50 mg PO Q6H PRN PRN Reason: PAIN Last Admin: 04/25/17 15:46 Dose: 50 mg - Objective Vital Signs: Vital Signs Temperature 98.5 F 04/25/17 14:23 Pulse Rate 94 H 04/25/17 14:23 Respiratory Rate 20 04/25/17 14:23 Blood Pressure 150/61 04/25/17 14:23 O2 Sat by Pulse Oximetry (%) 95 04/25/17 09:00 Constitutional: Yes: No Distress Cardiovascular: Yes: Regular Rate and Rhythm Respiratory: Yes: Regular Gastrointestinal: Yes: Normal Bowel Sounds Extremities: Yes: Amputation (Lt BKA stump open, no purulence noted. Lt knee with necrotic eschar. Rt AKA stump healed.) Neurological: Yes: Alert Labs: CBC, BMP 04/25/17 06:00 04/25/17 06:00 INR, PTT INR 2.06 (0.82-1.09) H D 04/25/17 06:00 Problem List - Problems (1) ESRD (end stage renal disease) Code(s): N18.6 - END STAGE RENAL DISEASE (2) Atrial fibrillation Code(s): I48.91 - UNSPECIFIED ATRIAL FIBRILLATION Qualifiers: Atrial fibrillation type: persistent Qualified Code(s): I48.1 - Persistent atrial fibrillation (3) Critical lower limb ischemia Code(s): I99.8 - OTHER DISORDER OF CIRCULATORY SYSTEM (4) HLD (hyperlipidemia) Code(s): E78.5 - HYPERLIPIDEMIA, UNSPECIFIED Qualifiers: Hyperlipidemia type: pure hypercholesterolemia Qualified Code(s): E78.00 - Pure hypercholesterolemia, unspecified (5) HTN (hypertension) Code(s): I10 - ESSENTIAL (PRIMARY) HYPERTENSION Qualifiers: Hypertension type: essential hypertension Qualified Code(s): I10 - Essential (primary) hypertension (6) Open wnd foot-complicated Code(s): S91.309A - UNSPECIFIED OPEN WOUND, UNSPECIFIED FOOT, INITIAL ENCOUNTER (7) Peripheral arterial disease Code(s): I73.9 - PERIPHERAL VASCULAR DISEASE, UNSPECIFIED Assessment/Plan LT BKA stump -non-healing wound, stump previously infected with VRE - monitor off antibiotics at this time - Lt AKA scheduled for Tue. - continue wound care
--- NOTE | 2017-04-25 16:20 | PN ---
Physical Exam: SUBJECTIVE: Patient seen and examined in dialysis. OBJECTIVE: Vital Signs Period Temp Pulse Resp BP Sys/Coleman Pulse Ox Last 24 Hr 98.0 F-98.6 F 80-96 18-20 72-150/40-67 92-95 GENERAL: The patient is awake, alert, restless HEAD: Normal with no signs of trauma. EYES: PERRL, extraocular movements intact, sclera anicteric, conjunctiva clear. No ptosis. ENT: Ears normal, nares patent, oropharynx clear without exudates, moist mucous membranes. NECK: Trachea midline, full range of motion, supple. LUNGS: Breath sounds equal, clear to auscultation bilaterally, no wheezes, no crackles, no accessory muscle use. HEART:Irregular, ABDOMEN: Soft, non-tender, nondistended, normoactive bowel sounds, no guarding, no rebound, no hepatosplenomegaly, no masses. EXTREMITIES: Rt AKA amputation, left BKA,stump wound intact with dsg PSYCH: restless SKIN: left BKA,stump wound intact with dsg Laboratory Results - last 24 hr 04/25/17 04/25/17 04/25/17 06:00 06:00 06:00 WBC 6.0 RBC 3.02 L Hgb 8.7 L Hct 27.1 L MCV 89.7 MCH 28.7 MCHC 32.0 RDW 20.4 H Plt Count 58 L MPV 7.6 PT with INR 23.30 H INR 2.06 H D PTT (Actin FS) Sodium 140 Potassium 4.6 Chloride 100 Carbon Dioxide 27 Anion Gap 13 BUN 88 H Creatinine 8.5 H* Random Glucose 68 L Calcium 8.3 L Phosphorus 04/25/17 04/25/17 06:00 12:30 WBC RBC Hgb Hct MCV MCH MCHC RDW Plt Count MPV PT with INR INR PTT (Actin FS) 35.6 H D Sodium Potassium Chloride Carbon Dioxide Anion Gap BUN Creatinine Random Glucose Calcium Phosphorus 4.1 Active Medications Generic Name Dose Route Start Last Admin Trade Name Freq PRN Reason Stop Dose Admin Acetaminophen 650 mg 04/20/17 21:50 04/24/17 15:54 Tylenol - PO 650 mg Q6H PRN Administration FEVER OR PAIN Alprazolam 0.25 mg 04/20/17 22:00 04/24/17 21:10 Xanax - PO 0.25 mg HS OTIS Administration Amino Acids 30 ml 04/21/17 08:00 04/25/17 09:00 Prosource No Carb Liquid Pkt PO 30 ml BID@0800,1730 OT[facility] Administration Budesonide/Formoterol Fumarate 2 puff 04/20/17 22:00 04/25/17 09:41 Symbicort 80/4.5mcg - IH 2 puff BID OTIS Administration Carvedilol 3.125 mg 04/24/17 22:00 04/25/17 09:38 Coreg - PO Not Given BID OTIS Cilostazol 100 mg 04/20/17 22:00 04/25/17 09:40 Pletal - PO 100 mg BID OTIS Administration Collagenase 1 applic 04/21/17 17:15 04/25/17 14:15 Santyl - TP 1 applic DAILY [facility] Administration Docusate Sodium 300 mg 04/20/17 22:00 04/24/17 21:09 Colace - PO 300 mg HS OTIS Administration Doxycycline Hyclate 100 mg 04/21/17 10:00 04/25/17 09:37 Vibramycin - PO 100 mg BID@1000,1800 OT[facility] Administration Gabapentin 100 mg 04/20/17 22:00 04/25/17 09:37 Neurontin - PO 100 mg BID OTIS Administration Heparin Sodium (Porcine) 1,000 unit 04/25/17 12:11 Heparin - IVPUSH PRN PRN Heparin Heparin Sodium (Porcine) 5,000 unit 04/25/17 12:11 04/25/17 15:46 Heparin - IVPUSH 5,000 unit PRN PRN Administration Heparin Heparin Sodium/Dextrose 25,000 units in 500 mls @ 16 mls/hr 04/25/17 12:15 15:47 Heparin Infusion - IVPB 950 units/hr TITR OTIS 19 mls/hr Protocol Administration 800 UNITS/HR Midodrine 10 mg 04/21/17 10:00 04/25/17 14:14 Proamatine - PO 10 mg TID-MID [facility] Administration Quetiapine Fumarate 25 mg 04/20/17 22:00 04/25/17 09:40 Seroquel - PO 25 mg BID OTIS Administration Rosuvastatin Calcium 20 mg 04/21/17 10:00 04/25/17 09:39 Crestor - PO 20 mg DAILY [facility] Administration Sucralfate 0.5 gm 04/20/17 22:00 04/25/17 09:37 Carafate Oral Suspension - PO 0.5 gm BID [facility] Administration Tramadol HCl 50 mg 04/24/17 09:32 04/25/17 15:46 Ultram - PO 50 mg Q6H PRN Administration PAIN ASSESSMENT/PLAN: Patient is a 77 year old male with a significant past medical history of ESRD HD , atrial fib, hypertension, DVT, right AKA, s/p left 2nd digit amputation lower extremity. He presented to the ED on 04/21/2017 after sustaining a fall at the nursing facility he was discharged to. He was recently here between 2016 and 04/18/2017 for critical ischemia of left lower extremity. Patient is s/ p a left BKA on 03/31/2017 for septic left foot/leg. He was discharged to the nursing facility on Doxycycline 100mg BID. Neuro: S/P Fall at Nursing facility Head CT negative, continue fall precautions Monitor mental status Renal ESRD, dialysis today Vascular Left BKA/PVD Left BKA performed on last hospitalization Was sent to nursing facility with instructions on wound vac For AKA on Tuesday Started on a heparin drip Continue Doxycyline BID as per ID Cardiology Atrial fibrillation, rate controlled INR therapeutic at 2.04, will hold coumadin, start on Heparin drip in anticipation of surgical procedure Follow Aptt Hematology Thrombocytopenia, chronic Monitor daily labs Prophylaxis: DVT: On Heparin drip GI: Carafate disposition: full code
--- NOTE | 2017-04-25 18:50 | PN ---
Progress Note (short form) - Note Progress Note: Renal Follow up for ESRD on HD Pt seen and examined at the bedside s/p dialysis this am pt was agitated and BP was low so HD was terminated early Vital Signs Temperature 98.7 F 04/25/17 18:05 Pulse Rate 99 H 04/25/17 18:05 Respiratory Rate 20 04/25/17 18:05 Blood Pressure 119/67 04/25/17 18:05 O2 Sat by Pulse Oximetry (%) 95 04/25/17 09:00 Intake & Output 04/22/17 04/23/17 04/24/17 04/25/17 23:59 23:59 23:59 23:59 Intake Total 150 720 760 200 Balance 150 720 760 200 NAD awake and alert NC/AT, No JVD, Neck supple RRR, no M/R Soft NT/ND Abd right AKA, Left BKA in dressing (clean) left arm AVF + thrill CBC, BMP 04/25/17 06:00 04/25/17 06:00 Current Medications Acetaminophen (Tylenol -) 650 mg PO Q6H PRN PRN Reason: FEVER OR PAIN Last Admin: 04/24/17 15:54 Dose: 650 mg Alprazolam (Xanax -) 0.25 mg PO HS [facility] Last Admin: 04/24/17 21:10 Dose: 0.25 mg Amino Acids (Prosource No Carb Liquid Pkt) 30 ml PO BID@0800,1730 [facility] Last Admin: 04/25/17 16:57 Dose: 30 ml Budesonide/Formoterol Fumarate (Symbicort 80/4.5mcg -) 2 puff IH BID [facility] Last Admin: 04/25/17 09:41 Dose: 2 puff Carvedilol (Coreg -) 3.125 mg PO BID [facility] Last Admin: 04/25/17 09:38 Dose: Not Given Cilostazol (Pletal -) 100 mg PO BID [facility] Last Admin: 04/25/17 09:40 Dose: 100 mg Collagenase (Santyl -) 1 applic TP DAILY [facility] Last Admin: 04/25/17 14:15 Dose: 1 applic Docusate Sodium (Colace -) 300 mg PO HS [facility] Last Admin: 04/24/17 21:09 Dose: 300 mg Doxycycline Hyclate (Vibramycin -) 100 mg PO BID@1000,1800 [facility] Last Admin: 04/25/17 17:01 Dose: 100 mg Gabapentin (Neurontin -) 100 mg PO BID [facility] Last Admin: 04/25/17 09:37 Dose: 100 mg Heparin Sodium (Porcine) (Heparin -) 1,000 unit IVPUSH PRN PRN PRN Reason: Heparin Heparin Sodium (Porcine) (Heparin -) 5,000 unit IVPUSH PRN PRN PRN Reason: Heparin Last Admin: 04/25/17 15:46 Dose: 5,000 unit Heparin Sodium/Dextrose (Heparin Infusion -) 25,000 units in 500 mls @ 16 mls/ hr IVPB TITR [facility]; 800 UNITS/HR PRN Reason: Protocol Last Admin: 04/25/17 15:47 Dose: 950 units/hr, 19 mls/hr Midodrine (Proamatine -) 10 mg PO TID-MID [facility] Last Admin: 04/25/17 17:01 Dose: 10 mg Quetiapine Fumarate (Seroquel -) 25 mg PO BID [facility] Last Admin: 04/25/17 09:40 Dose: 25 mg Rosuvastatin Calcium (Crestor -) 20 mg PO DAILY [facility] Last Admin: 04/25/17 09:39 Dose: 20 mg Sucralfate (Carafate Oral Suspension -) 0.5 gm PO BID [facility] Last Admin: 04/25/17 09:37 Dose: 0.5 gm Tramadol HCl (Ultram -) 50 mg PO Q6H PRN PRN Reason: PAIN Last Admin: 04/25/17 15:46 Dose: 50 mg 77 year old gentleman with PMhx of ESRD on HD (started in [place]) Hypertension, DVT, PVD s/p right AKA s/p recent admission for Le wound that required amputation now presents from [place] s/p fall. #Hyperkalemia/ESRD on HD s/p dialysis today will continue HD 3x weekly #PVD s/p BKA Vascular follow up for AKA pff abx as per ID #Anemia in CKD will continue IVANIA with Hd no acute indication for transfusion #Thrombocytopenia Trend CBC, no heparin with Hd Thank you Will follow Raghu Boogie DO
[2017-04-25] MEDS: DOCUSATE SODIUM 100 MG CAPSULE (FP) PO SCH (21:47)
[2017-04-25] MEDS: ALPRAZolam 0.25 MG TABLET PO SCH (21:47)
[2017-04-26 07:52] LABS: HEMATOCRIT 26.7 % (35.4-49); HEMOGLOBIN 8.5 GM/dL (11.7-16.9); MCH 28.4 pg (25.7-33.7); MCHC 31.6 g/dl (32.0-35.9); MEAN CELL VOLUME 89.8 fl (80-96); MEAN PLT VOLUME 8.2 fl (7.5-11.1); PLATELET COUNT 57 K/MM3 (134-434); RBC 2.98 M/mm3 (4.00-5.60); RDW 20.1 % (11.9-15.9); WHITE BLOOD COUNT 5.3 K/mm3 (4.0-10.0)
[2017-04-26] MEDS: AMINO ACIDS/PROTEIN HYDROLYS 30 ML LIQUID.PKT PO SCH ×2 (08:28→17:57)
[2017-04-26 08:42] LABS: ALBUMIN 2.1 g/dl (3.4-5.0); ANION GAP 12 (8-16); BILIRUBIN,TOTAL 0.4 mg/dL (0.2-1.0); BLOOD UREA NITROGEN 67 mg/dL (7-18); CHLORIDE 101 mmol/L (98-107); CO2 27 mmol/L (21-32); CREATININE 7.2 mg/dL (0.7-1.3); GLUCOSE,RANDOM 89 mg/dL (74-106); SGOT/AST 13 U/L (15-37); SGPT/ALT 12 U/L (12-78); SODIUM 140 mmol/L (136-145); TOT PROT 4.9 g/dl (6.4-8.2)
[2017-04-26 08:43] LABS: ALK PHOS 124 U/L (45-117)
[2017-04-26] MEDS ORDERED: PT OWN MED DRAWER 7, Y5N ONE (09:07)
[2017-04-26] MEDS: HEPARIN INFUSION - 25,000 UNITS/500 ML INFUS.BAG IVPB SCH ×3 (09:15→18:01)
[2017-04-26] MEDS: SUCRALFATE 1 GM/10 ML UNIT DOSE CUPS PO SCH ×2 (09:25→21:50)
[2017-04-26] MEDS: ROSUVASTATIN CA 20 MG TABLET (FP) PO SCH (09:26)
[2017-04-26] MEDS: CARVEDILOL 3.125 MG TABLET (FP) PO SCH ×2 (09:26→21:51)
[2017-04-26] MEDS: GABAPENTIN 100 MG CAPSULE (FP) PO SCH ×2 (09:27→21:51)
[2017-04-26] MEDS: CILOSTAZOL 100 MG TABLET PO SCH ×2 (09:27→21:51)
[2017-04-26] MEDS: MIDODRINE HCL 5 MG TABLET PO SCH ×3 (09:28→18:47)
[2017-04-26] MEDS: QUEtiapine FUMARATE 25 MG TABLET (FP) PO SCH ×2 (09:29→21:50)
[2017-04-26] MEDS: DOXYCYCLINE HYCLATE 100 MG CAPSULE PO SCH (09:29)
[2017-04-26] MEDS: COLLAGENASE CLOSTRIDIUM HIST. 30 GRAMS TUBE TP SCH (09:29)
[2017-04-26] MEDS: BUDESONIDE/FORMETEROL FUMARATE 80/4.5 mcg INHALER IH SCH ×2 (09:30→21:51)
--- NOTE | 2017-04-26 09:32 | SPA.PREOP ---
- PRE-OP NOTE Dx: s/p eft BKA 03/31/2017 for septic left foot/leg. Stump not viable Planned Procedure: RUFINO JENSEN Surgeon: Faizan Villa Consent: To be obtained by surgeon after risks, benefits and alternatives explained to patient. Last Vital Signs Temp Pulse Resp BP Pulse Ox 98 F 90 20 99/48 96 04/26/17 06:00 04/26/17 06:00 04/26/17 06:00 04/26/17 06:00 04/25/17 21:00 CBC, BMP 04/26/17 06:00 04/26/17 06:00 INR, PTT INR 2.06 (0.82-1.09) H D 04/25/17 06:00 - ASSESSMENT/PLAN Problem List - Problems (1) Critical lower limb ischemia Assessment/Plan: 1. Make NPO after midnight except po meds 2. GI/DVT PPX 3. Medical optimization / clearance 4. Hold heparin 11AM 04/27/17 Code(s): I99.8 - OTHER DISORDER OF CIRCULATORY SYSTEM (2) ESRD (end stage renal disease) Assessment/Plan: s/p HD 04/25 Cont treatments per patient's schedule Code(s): N18.6 - END STAGE RENAL DISEASE Visit type - Case Type Case Type: ED Admission - New patient This patient is new to me today: Yes Date on this admission: 04/26/17
[2017-04-26 10:45] LABS: ANISOCYTOSIS 1+; MACROCYTOSIS 0; TEAR DROP CELLS 1+
--- NOTE | 2017-04-26 13:49 | PN ---
Physical Exam: SUBJECTIVE: Patient seen and examined. OBJECTIVE: Hold heparin 11AM on 04/27/17, RN made aware, orders entered Type and screen and 2 units of PRBC on hold prior to OR For left AKA on 04/27/17 Vital Signs Period Temp Pulse Resp BP Sys/Coleman Pulse Ox Last 24 Hr 98 F-98.7 F 90-100 20-20 99-150/48-67 96 GENERAL: The patient is awake, alert, restless, cachectic HEAD: Normal with no signs of trauma. EYES: PERRL, extraocular movements intact, sclera anicteric, conjunctiva clear. No ptosis. ENT: Ears normal, nares patent, oropharynx clear without exudates, moist mucous membranes. NECK: Trachea midline, full range of motion, supple. LUNGS: Breath sounds equal, clear to auscultation bilaterally, no wheezes, no crackles, no accessory muscle use. HEART:Irregular, ABDOMEN: Soft, non-tender, nondistended, normoactive bowel sounds, no guarding, no rebound, no hepatosplenomegaly, no masses. EXTREMITIES: Rt AKA amputation, left BKA,stump wound intact with dsg PSYCH: restless SKIN: left BKA,stump wound intact with dsg Laboratory Results - last 24 hr 04/26/17 04/26/17 04/26/17 06:00 06:00 06:00 WBC 5.3 RBC 2.98 L Hgb 8.5 L Hct 26.7 L MCV 89.8 MCH 28.4 MCHC 31.6 L RDW 20.1 H Plt Count 57 L MPV 8.2 Neutrophils % No Result Required. Lymphocytes % No Result Required. PTT (Actin FS) 78.4 H D Sodium 140 Potassium 4.0 Chloride 101 Carbon Dioxide 27 Anion Gap 12 BUN 67 H D Creatinine 7.2 H Creat Clearance w eGFR 7.45 Random Glucose 89 D Calcium 8.0 L Total Bilirubin 0.4 AST 13 L ALT 12 Alkaline Phosphatase 124 H Total Protein 4.9 L Albumin 2.1 L Crossmatch 04/26/17 12:40 WBC RBC Hgb Hct MCV MCH MCHC RDW Plt Count MPV Neutrophils % Lymphocytes % PTT (Actin FS) Sodium Potassium Chloride Carbon Dioxide Anion Gap BUN Creatinine Creat Clearance w eGFR Random Glucose Calcium Total Bilirubin AST ALT Alkaline Phosphatase Total Protein Albumin Crossmatch See Detail Active Medications Generic Name Dose Route Start Last Admin Trade Name Rhettq PRN Reason Stop Dose Admin Acetaminophen 650 mg 04/20/17 21:50 04/24/17 15:54 Tylenol - PO 650 mg Q6H PRN Administration FEVER OR PAIN Alprazolam 0.25 mg 04/20/17 22:00 04/25/17 21:47 Xanax - PO 0.25 mg HS OTIS Administration Amino Acids 30 ml 04/21/17 08:00 04/26/17 08:28 Prosource No Carb Liquid Pkt PO 30 ml BID@0800,1730 [facility] Administration Budesonide/Formoterol Fumarate 2 puff 04/20/17 22:00 04/26/17 09:30 Symbicort 80/4.5mcg - IH 2 puff BID [facility] Administration Carvedilol 3.125 mg 04/24/17 22:00 04/26/17 09:26 Coreg - PO 3.125 mg BID [facility] Administration Cilostazol 100 mg 04/20/17 22:00 04/26/17 09:27 Pletal - PO 100 mg BID [facility] Administration Collagenase 1 applic 04/21/17 17:15 04/26/17 09:29 Santyl - TP 1 applic DAILY [facility] Administration Docusate Sodium 300 mg 04/20/17 22:00 04/25/17 21:47 Colace - PO 300 mg HS [facility] Administration Doxycycline Hyclate 100 mg 04/21/17 10:00 04/26/17 09:29 Vibramycin - PO 100 mg BID@1000,1800 [facility] Administration Gabapentin 100 mg 04/20/17 22:00 04/26/17 09:27 Neurontin - PO 100 mg BID [facility] Administration Heparin Sodium (Porcine) 1,000 unit 04/25/17 12:11 Heparin - IVPUSH PRN PRN Heparin Heparin Sodium (Porcine) 5,000 unit 04/25/17 12:11 04/25/17 15:46 Heparin - IVPUSH 5,000 unit PRN PRN Administration Heparin Heparin Sodium/Dextrose 25,000 units in 500 mls @ 16 mls/hr 04/25/17 12:15 09:15 Heparin Infusion - IVPB 04/27/17 11:00 900 units/hr TITR [facility] 18 mls/hr Protocol Administration 800 UNITS/HR Midodrine 10 mg 04/21/17 10:00 04/26/17 09:28 Proamatine - PO 10 mg TID-MID [facility] Administration Quetiapine Fumarate 25 mg 04/20/17 22:00 04/26/17 09:29 Seroquel - PO 25 mg BID [facility] Administration Rosuvastatin Calcium 20 mg 04/21/17 10:00 04/26/17 09:26 Crestor - PO 20 mg DAILY [facility] Administration Sucralfate 0.5 gm 04/20/17 22:00 04/26/17 09:25 Carafate Oral Suspension - PO 0.5 gm BID [facility] Administration Tramadol HCl 50 mg 04/24/17 09:32 04/25/17 15:46 Ultram - PO 50 mg Q6H PRN Administration PAIN ASSESSMENT/PLAN: Patient is a 77 year old male with a significant past medical history of ESRD HD , atrial fib, hypertension, DVT, right AKA, s/p left 2nd digit amputation lower extremity. He presented to the ED on 04/21/2017 after sustaining a fall at the nursing facility he was discharged to. He was recently here between 2016 and 04/18/2017 for critical ischemia of left lower extremity. Patient is s/ p a left BKA on 03/31/2017 for septic left foot/leg. He was discharged to the nursing facility on Doxycycline 100mg BID. Neuro: S/P Fall at Nursing facility Head CT negative, continue fall precautions Monitor mental status Renal ESRD, dialysis yesterday Renal following Vascular Left BKA/PVD Left BKA performed on last hospitalization Was sent to nursing facility with instructions on wound vac For AKA on Tuesday Started on a heparin drip on 04/25, heparin drip to be d/c on 04/27/2107 @ 11am Completed Doxycycline, monitor off antibiotics as per ID Cardiology Atrial fibrillation, rate controlled Hold coumadin, started on Heparin drip prior to surgical procedure Hematology Thrombocytopenia, chronic Monitor daily labs Prophylaxis: DVT: On Heparin drip GI: Carafate disposition: full code Visit type - Emergency Visit Emergency Visit: Yes ED Registration Date: 04/21/17 Care time: The patient presented to the Emergency Department on the above date and was hospitalized for further evaluation of their emergent condition. - New Patient This patient is new to me today: No - Critical Care Critical Care patient: No - Discharge Referral Referred to [facility] No
[2017-04-26] MEDS: traMADol HCL 50 MG TABLET PO PRN (13:54)
--- NOTE | 2017-04-26 13:54 | PN ---
Progress Note, Physician History of Present Illness: Pt is alert, without acute distress. Vitals currently stable. - Current Medication List Current Medications: Active Medications Acetaminophen (Tylenol -) 650 mg PO Q6H PRN PRN Reason: FEVER OR PAIN Last Admin: 04/24/17 15:54 Dose: 650 mg Alprazolam (Xanax -) 0.25 mg PO HS [facility] Last Admin: 04/25/17 21:47 Dose: 0.25 mg Amino Acids (Prosource No Carb Liquid Pkt) 30 ml PO BID@0800,1730 [facility] Last Admin: 04/26/17 08:28 Dose: 30 ml Budesonide/Formoterol Fumarate (Symbicort 80/4.5mcg -) 2 puff IH BID [facility] Last Admin: 04/26/17 09:30 Dose: 2 puff Carvedilol (Coreg -) 3.125 mg PO BID [facility] Last Admin: 04/26/17 09:26 Dose: 3.125 mg Cilostazol (Pletal -) 100 mg PO BID [facility] Last Admin: 04/26/17 09:27 Dose: 100 mg Collagenase (Santyl -) 1 applic TP DAILY [facility] Last Admin: 04/26/17 09:29 Dose: 1 applic Docusate Sodium (Colace -) 300 mg PO HS [facility] Last Admin: 04/25/17 21:47 Dose: 300 mg Doxycycline Hyclate (Vibramycin -) 100 mg PO BID@1000,1800 [facility] Last Admin: 04/26/17 09:29 Dose: 100 mg Gabapentin (Neurontin -) 100 mg PO BID [facility] Last Admin: 04/26/17 09:27 Dose: 100 mg Heparin Sodium (Porcine) (Heparin -) 1,000 unit IVPUSH PRN PRN PRN Reason: Heparin Heparin Sodium (Porcine) (Heparin -) 5,000 unit IVPUSH PRN PRN PRN Reason: Heparin Last Admin: 04/25/17 15:46 Dose: 5,000 unit Heparin Sodium/Dextrose (Heparin Infusion -) 25,000 units in 500 mls @ 16 mls/ hr IVPB TITR [facility]; 800 UNITS/HR PRN Reason: Protocol Stop: 04/27/17 11:00 Last Admin: 04/26/17 09:15 Dose: 900 units/hr, 18 mls/hr Midodrine (Proamatine -) 10 mg PO TID-MID [facility] Last Admin: 04/26/17 09:28 Dose: 10 mg Quetiapine Fumarate (Seroquel -) 25 mg PO BID [facility] Last Admin: 04/26/17 09:29 Dose: 25 mg Rosuvastatin Calcium (Crestor -) 20 mg PO DAILY [facility] Last Admin: 04/26/17 09:26 Dose: 20 mg Sucralfate (Carafate Oral Suspension -) 0.5 gm PO BID [facility] Last Admin: 04/26/17 09:25 Dose: 0.5 gm Tramadol HCl (Ultram -) 50 mg PO Q6H PRN PRN Reason: PAIN Last Admin: 04/25/17 15:46 Dose: 50 mg - Objective Vital Signs: Vital Signs Temperature 98 F 04/26/17 06:00 Pulse Rate 90 04/26/17 06:00 Respiratory Rate 20 04/26/17 06:00 Blood Pressure 99/48 04/26/17 06:00 O2 Sat by Pulse Oximetry (%) 96 04/25/17 21:00 Constitutional: Yes: No Distress Neck: Yes: Supple Cardiovascular: Yes: Regular Rate and Rhythm Respiratory: Yes: Regular Gastrointestinal: Yes: Normal Bowel Sounds, Soft Wound/Incision: Yes: Other (Lt BKA site open , Lt knee necrotic patches) Labs: CBC, BMP 04/26/17 06:00 04/26/17 06:00 INR, PTT INR 2.06 (0.82-1.09) H D 04/25/17 06:00 Problem List - Problems (1) ESRD (end stage renal disease) Code(s): N18.6 - END STAGE RENAL DISEASE (2) Atrial fibrillation Code(s): I48.91 - UNSPECIFIED ATRIAL FIBRILLATION Qualifiers: Atrial fibrillation type: persistent Qualified Code(s): I48.1 - Persistent atrial fibrillation (3) Critical lower limb ischemia Code(s): I99.8 - OTHER DISORDER OF CIRCULATORY SYSTEM (4) HLD (hyperlipidemia) Code(s): E78.5 - HYPERLIPIDEMIA, UNSPECIFIED Qualifiers: Hyperlipidemia type: pure hypercholesterolemia Qualified Code(s): E78.00 - Pure hypercholesterolemia, unspecified (5) HTN (hypertension) Code(s): I10 - ESSENTIAL (PRIMARY) HYPERTENSION Qualifiers: Hypertension type: essential hypertension Qualified Code(s): I10 - Essential (primary) hypertension (6) Open wnd foot-complicated Code(s): S91.309A - UNSPECIFIED OPEN WOUND, UNSPECIFIED FOOT, INITIAL ENCOUNTER (7) Peripheral arterial disease Code(s): I73.9 - PERIPHERAL VASCULAR DISEASE, UNSPECIFIED Assessment/Plan LT BKA stump -non-healing wound, not viable - stable off antibiotics - Lt AKA scheduled for tomorrow - continue wound care
--- NOTE | 2017-04-26 15:25 | PN ---
Progress Note (short form) - Note Progress Note: Renal Follow up for ESRD on HD Pt seen and examined at the bedside s/p dialysis this am pt was agitated and BP was low so HD was terminated early Vital Signs Temperature 98.7 F 04/25/17 18:05 Pulse Rate 99 H 04/25/17 18:05 Respiratory Rate 20 04/25/17 18:05 Blood Pressure 119/67 04/25/17 18:05 O2 Sat by Pulse Oximetry (%) 95 04/25/17 09:00 Intake & Output 04/22/17 04/23/17 04/24/17 04/25/17 23:59 23:59 23:59 23:59 Intake Total 150 720 760 200 Balance 150 720 760 200 NAD RRR, no M/R Soft NT/ND Abd right AKA, Left BKA in dressing CBC, BMP 04/26/17 06:00 04/26/17 06:00 Current Medications Acetaminophen (Tylenol -) 650 mg PO Q6H PRN PRN Reason: FEVER OR PAIN Last Admin: 04/24/17 15:54 Dose: 650 mg Alprazolam (Xanax -) 0.25 mg PO HS [facility] Last Admin: 04/25/17 21:47 Dose: 0.25 mg Amino Acids (Prosource No Carb Liquid Pkt) 30 ml PO BID@0800,1730 [facility] Last Admin: 04/26/17 08:28 Dose: 30 ml Budesonide/Formoterol Fumarate (Symbicort 80/4.5mcg -) 2 puff IH BID [facility] Last Admin: 04/26/17 09:30 Dose: 2 puff Carvedilol (Coreg -) 3.125 mg PO BID [facility] Last Admin: 04/26/17 09:26 Dose: 3.125 mg Cilostazol (Pletal -) 100 mg PO BID [facility] Last Admin: 04/26/17 09:27 Dose: 100 mg Collagenase (Santyl -) 1 applic TP DAILY [facility] Last Admin: 04/26/17 09:29 Dose: 1 applic Docusate Sodium (Colace -) 300 mg PO HS [facility] Last Admin: 04/25/17 21:47 Dose: 300 mg Gabapentin (Neurontin -) 100 mg PO BID [facility] Last Admin: 04/26/17 09:27 Dose: 100 mg Heparin Sodium (Porcine) (Heparin -) 1,000 unit IVPUSH PRN PRN PRN Reason: Heparin Heparin Sodium (Porcine) (Heparin -) 5,000 unit IVPUSH PRN PRN PRN Reason: Heparin Last Admin: 04/25/17 15:46 Dose: 5,000 unit Heparin Sodium/Dextrose (Heparin Infusion -) 25,000 units in 500 mls @ 16 mls/ hr IVPB TITR [facility]; 800 UNITS/HR PRN Reason: Protocol Stop: 04/27/17 11:00 Last Admin: 04/26/17 13:51 Dose: Not Given Midodrine (Proamatine -) 10 mg PO TID-MID [facility] Last Admin: 04/26/17 13:53 Dose: 10 mg Quetiapine Fumarate (Seroquel -) 25 mg PO BID [facility] Last Admin: 04/26/17 09:29 Dose: 25 mg Rosuvastatin Calcium (Crestor -) 20 mg PO DAILY [facility] Last Admin: 04/26/17 09:26 Dose: 20 mg Sucralfate (Carafate Oral Suspension -) 0.5 gm PO BID [facility] Last Admin: 04/26/17 09:25 Dose: 0.5 gm Tramadol HCl (Ultram -) 50 mg PO Q6H PRN PRN Reason: PAIN Last Admin: 04/26/17 13:54 Dose: 50 mg 77 year old gentleman with PMhx of ESRD on HD (started in [place]) Hypertension, DVT, PVD s/p right AKA s/p recent admission for Le wound that required amputation now presents from [place] s/p fall. #Hyperkalemia/ESRD on HD s/p dialysis yesterday no acute indication for [employer] today #PVD s/p BKA for AKA tomorrow #Anemia in CKD will continue IVANIA with Hd no acute indication for transfusion blood to be placed on hold for the OR Raghu Boogie DO
[2017-04-26 15:28] LABS: PLATELET ESTIMATE DECREASED
[2017-04-26] MEDS: ALPRAZolam 0.25 MG TABLET PO SCH (21:50)
[2017-04-26] MEDS: DOCUSATE SODIUM 100 MG CAPSULE (FP) PO SCH (21:50)
[2017-04-27] MEDS ORDERED: HEPARIN NA (PORCINE) 5,000 UNITS/ML 1ML VIAL IVPUSH ONE (01:55)
[2017-04-27] MEDS ORDERED: HEPARIN INFUSION - 25,000 UNITS/500 ML INFUS.BAG IVPB SCH (02:15)
[2017-04-27] MEDS ORDERED: EPOETIN ALFA 2,000 UNIT/1 ML VIAL IVPUSH ONE ×2 (06:00→09:30)
[2017-04-27 07:50] LABS: HEMATOCRIT 26.9 % (35.4-49); HEMOGLOBIN 8.5 GM/dL (11.7-16.9); MCH 28.5 pg (25.7-33.7); MCHC 31.7 g/dl (32.0-35.9); MEAN CELL VOLUME 89.8 fl (80-96); MEAN PLT VOLUME 8.1 fl (7.5-11.1); PLATELET COUNT 76 K/MM3 (134-434); RDW 20.3 % (11.9-15.9); WHITE BLOOD COUNT 6.5 K/mm3 (4.0-10.0)
[2017-04-27 08:59] LABS: INR 1.02 (0.82-1.09); PROTHROMBIN TIME (PATIENT) 11.5 SEC (9.98-11.88)
[2017-04-27 11:43] LABS: CHLORIDE 100 mmol/L (98-107); POTASSIUM 4.2 mmol/L (3.5-5.1); SODIUM 139 mmol/L (136-145)
[2017-04-27 11:50] LABS: ALK PHOS 124 U/L (45-117); ANION GAP 12 (8-16); BILIRUBIN,TOTAL 0.6 mg/dL (0.2-1.0); BLOOD UREA NITROGEN 84 mg/dL (7-18); CO2 27 mmol/L (21-32); CREATININE 7.4 mg/dL (0.7-1.3); GLUCOSE,RANDOM 109 mg/dL (74-106); PHOSPHOROUS 3.4 mg/dL (2.5-4.9); SGOT/AST 10 U/L (15-37); SGPT/ALT 12 U/L (12-78); TOT PROT 4.7 g/dl (6.4-8.2)
--- NOTE | 2017-04-27 12:19 | PN ---
Progress Note (short form) - Note Progress Note: SUBJECTIVE: Patient seen and examined at the bedside, he has no complaints at this time Current Medications Generic Name Dose Route Start Last Admin Trade Name Antonieta PRN Reason Stop Dose Admin Acetaminophen 650 mg 04/20/17 21:50 04/24/17 15:54 Tylenol - PO 650 mg Q6H PRN Administration FEVER OR PAIN Alprazolam 0.25 mg 04/20/17 22:00 04/26/17 21:50 Xanax - PO 0.25 mg HS OTIS Administration Amino Acids 30 ml 04/21/17 08:00 04/26/17 17:57 Prosource No Carb Liquid Pkt PO 30 ml BID@0800,1730 [facility] Administration Budesonide/Formoterol Fumarate 2 puff 04/20/17 22:00 04/26/17 21:51 Symbicort 80/4.5mcg - IH 2 puff BID [facility] Administration Carvedilol 3.125 mg 04/24/17 22:00 04/26/17 21:51 Coreg - PO 3.125 mg BID [facility] Administration Cilostazol 100 mg 04/20/17 22:00 04/26/17 21:51 Pletal - PO 100 mg BID [facility] Administration Collagenase 1 applic 04/21/17 17:15 04/26/17 09:29 Santyl - TP 1 applic DAILY [facility] Administration Docusate Sodium 300 mg 04/20/17 22:00 04/26/17 21:50 Colace - PO 300 mg HS [facility] Administration Gabapentin 100 mg 04/20/17 22:00 04/26/17 21:51 Neurontin - PO 100 mg BID [facility] Administration Heparin Sodium (Porcine) 1,000 unit 04/25/17 12:11 Heparin - IVPUSH PRN PRN Heparin Heparin Sodium (Porcine) 5,000 unit 04/25/17 12:11 04/25/17 15:46 Heparin - IVPUSH 5,000 unit PRN PRN Administration Heparin Midodrine 10 mg 04/21/17 10:00 04/26/17 18:47 Proamatine - PO 10 mg TID-MID [facility] Administration Quetiapine Fumarate 25 mg 04/20/17 22:00 04/26/17 21:50 Seroquel - PO 25 mg BID [facility] Administration Rosuvastatin Calcium 20 mg 04/21/17 10:00 04/26/17 09:26 Crestor - PO 20 mg DAILY [facility] Administration Sucralfate 0.5 gm 04/20/17 22:00 04/26/17 21:50 Carafate Oral Suspension - PO 0.5 gm BID [facility] Administration Tramadol HCl 50 mg 04/24/17 09:32 04/26/17 13:54 Ultram - PO 50 mg Q6H PRN Administration PAIN OBJECTIVE: Vital Signs Period Temp Pulse Resp BP Sys/Coleman Pulse Ox Last 24 Hr 97.8 F-98.8 F 70-103 18-20 80-127/45-66 95 PE Neuro: awake, alert, cn 2-12intact confused at times Pulm: CTAB CV: s1 s2 irregular rate + 2/6 systolic murmur Abd: soft, nt, nd +bs Ext: R AKA amputation, left BKA open stump, dressing c/d/i CBCD WBC 6.5 K/mm3 (4.0-10.0) 04/27/17 06:00 RBC 3.00 M/mm3 (4.00-5.60) L 04/27/17 06:00 Hgb 8.5 GM/dL (11.7-16.9) L 04/27/17 06:00 Hct 26.9 % (35.4-49) L 04/27/17 06:00 MCV 89.8 fl (80-96) 04/27/17 06:00 MCHC 31.7 g/dl (32.0-35.9) L 04/27/17 06:00 RDW 20.3 % (11.9-15.9) H 04/27/17 06:00 Plt Count 76 K/MM3 (134-434) L D 04/27/17 06:00 MPV 8.1 fl (7.5-11.1) 04/27/17 06:00 CMP Sodium 139 mmol/L (136-145) 04/27/17 10:00 Potassium 4.2 mmol/L (3.5-5.1) 04/27/17 10:00 Chloride 100 mmol/L (98-107) 04/27/17 10:00 Carbon Dioxide 27 mmol/L (21-32) 04/27/17 10:00 Anion Gap 12 (8-16) 04/27/17 10:00 BUN 84 mg/dL (7-18) H D 04/27/17 10:00 Creatinine 7.4 mg/dL (0.7-1.3) H 04/27/17 10:00 Creat Clearance w eGFR 7.21 (>60) 04/27/17 10:00 Random Glucose 109 mg/dL (74-106) H D 04/27/17 10:00 Calcium 8.0 mg/dL (8.5-10.1) L 04/27/17 10:00 Total Bilirubin 0.6 mg/dL (0.2-1.0) D 04/27/17 10:00 AST 10 U/L (15-37) L D 04/27/17 10:00 ALT 12 U/L (12-78) 04/27/17 10:00 Alkaline Phosphatase 124 U/L (45-117) H 04/27/17 10:00 Total Protein 4.7 g/dl (6.4-8.2) L 04/27/17 10:00 Albumin 2.0 g/dl (3.4-5.0) L 04/27/17 10:00 Assessment: 77 year old male with PMHx HTN, CAD, Afib, PVD, ESRD, anemia, COPD, GERD, anxiety, DVT, AAA-infrarenal, Hepatitis B, L BKA 02/28/17 presented to the ED from [place] s/p Fall. Plan: 1. ESRD - HD per Renal service 2. L BKA/PVD - AKA today - Cont gabapentin for pain - Off all antibiotics - Appreciate vascular surgery consult 3. HTN/HLD/CAD - Cont home crestor, coreg 4. s/p fall - Head CT negative - Fall precautions 5. Afib, rate controlled - On Heparin gtt, stopped today at 11am for AKA surgery this afternoon - Resume Coumadin once cleared from surgery 6. Thrombocytopenia - present on previous admission, labile, monitor 7. GERD - Hold protonix, if symptoms arise restart ppi 8. DVT PPX - On Heparin gtt, stop today for AKA CODE STATUS: FULL CODE Visit type - Emergency Visit Emergency Visit: Yes ED Registration Date: 04/21/17 Care time: The patient presented to the Emergency Department on the above date and was hospitalized for further evaluation of their emergent condition. - New Patient This patient is new to me today: No - Critical Care Critical Care patient: No
[2017-04-27] MEDS: AMINO ACIDS/PROTEIN HYDROLYS 30 ML LIQUID.PKT PO SCH ×2 (13:56→17:50)
[2017-04-27] MEDS: CARVEDILOL 3.125 MG TABLET (FP) PO SCH ×2 (14:00→23:00)
[2017-04-27] MEDS: ROSUVASTATIN CA 20 MG TABLET (FP) PO SCH ×2 (14:26→23:00)
[2017-04-27] MEDS: SUCRALFATE 1 GM/10 ML UNIT DOSE CUPS PO SCH ×2 (14:26→23:00)
[2017-04-27] MEDS: BUDESONIDE/FORMETEROL FUMARATE 80/4.5 mcg INHALER IH SCH ×2 (14:27→23:02)
[2017-04-27] MEDS: COLLAGENASE CLOSTRIDIUM HIST. 30 GRAMS TUBE TP SCH (14:27)
[2017-04-27] MEDS: QUEtiapine FUMARATE 25 MG TABLET (FP) PO SCH ×2 (14:27→23:02)
[2017-04-27] MEDS: MIDODRINE HCL 5 MG TABLET PO SCH ×3 (14:27→17:50)
[2017-04-27] MEDS: traMADol HCL 50 MG TABLET PO PRN (14:44)
[2017-04-27] MEDS: GABAPENTIN 100 MG CAPSULE (FP) PO SCH ×2 (14:44→23:01)
[2017-04-27] MEDS: CILOSTAZOL 100 MG TABLET PO SCH (14:45)
--- NOTE | 2017-04-27 17:43 | PN ---
Progress Note (short form) - Note Progress Note: Renal Follow up for ESRD on HD Pt seen and examined during dialysis earlier today awake and alert on dialysis BP was marginal UF goal reduced AVF with good flow Vital Signs Temperature 98.4 F 04/27/17 15:09 Pulse Rate 103 H 04/27/17 15:09 Respiratory Rate 20 04/27/17 15:09 Blood Pressure 103/53 04/27/17 15:09 O2 Sat by Pulse Oximetry (%) 96 04/27/17 09:00 Intake & Output 04/24/17 04/25/17 04/26/17 04/27/17 23:59 23:59 23:59 23:59 Intake Total 760 200 775 Balance 760 200 775 NAD RRR, no M/R Soft NT/ND Abd right AKA, Left BKA in dressing CBC, BMP 04/27/17 06:00 04/27/17 10:00 Current Medications Acetaminophen (Tylenol -) 650 mg PO Q6H PRN PRN Reason: FEVER OR PAIN Last Admin: 04/24/17 15:54 Dose: 650 mg Alprazolam (Xanax -) 0.25 mg PO HS [facility] Last Admin: 04/26/17 21:50 Dose: 0.25 mg Amino Acids (Prosource No Carb Liquid Pkt) 30 ml PO BID@0800,1730 [facility] Last Admin: 04/27/17 13:56 Dose: Not Given Budesonide/Formoterol Fumarate (Symbicort 80/4.5mcg -) 2 puff IH BID [facility] Last Admin: 04/27/17 14:27 Dose: Not Given Carvedilol (Coreg -) 3.125 mg PO BID [facility] Last Admin: 04/27/17 14:00 Dose: Not Given Cilostazol (Pletal -) 100 mg PO BID [facility] Last Admin: 04/27/17 14:45 Dose: 100 mg Collagenase (Santyl -) 1 applic TP DAILY [facility] Last Admin: 04/27/17 14:27 Dose: Not Given Docusate Sodium (Colace -) 300 mg PO HS [facility] Last Admin: 04/26/17 21:50 Dose: 300 mg Gabapentin (Neurontin -) 100 mg PO BID [facility] Last Admin: 04/27/17 14:44 Dose: 100 mg Heparin Sodium (Porcine) (Heparin -) 1,000 unit IVPUSH PRN PRN PRN Reason: Heparin Heparin Sodium (Porcine) (Heparin -) 5,000 unit IVPUSH PRN PRN PRN Reason: Heparin Last Admin: 04/25/17 15:46 Dose: 5,000 unit Midodrine (Proamatine -) 10 mg PO TID-MID [facility] Last Admin: 04/27/17 14:44 Dose: 10 mg Quetiapine Fumarate (Seroquel -) 25 mg PO BID [facility] Last Admin: 04/27/17 14:27 Dose: Not Given Rosuvastatin Calcium (Crestor -) 20 mg PO DAILY [facility] Last Admin: 04/27/17 14:26 Dose: Not Given Sucralfate (Carafate Oral Suspension -) 0.5 gm PO BID [facility] Last Admin: 04/27/17 14:26 Dose: Not Given Tramadol HCl (Ultram -) 50 mg PO Q6H PRN PRN Reason: PAIN Last Admin: 04/27/17 14:44 Dose: 50 mg 77 year old gentleman with PMhx of ESRD on HD (started in [place]) Hypertension, DVT, PVD s/p right AKA s/p recent admission for Le wound that required amputation now presents from [place] s/p fall. #ESRD on HD tolerated dialysis today dose all meds for intermittent HD UF as tolerated as bp is low #PVD s/p BKA for AKA today #Anemia in CKD transfuse as needed continue high dose IVANIA with HD Raghu Boogie DO
[2017-04-27] MEDS ORDERED: PROPOFOL 20 ML ONE (18:17)
[2017-04-27] MEDS ORDERED: ceFAZolin SODIUM 1 GM VIAL ONE (18:45)
[2017-04-27] MEDS ORDERED: ceFAZolin SODIUM 1 GM VIAL IVPB ONE (18:46)
--- NOTE | 2017-04-27 19:53 | OP ---
Operative Note - Note: Operative Date: 04/27/17 Pre-Operative Diagnosis: left foot gangrene Operation: left above knee amputation Post-Operative Diagnosis: Same as Pre-op Surgeon: [facility] Administrator: Stew Camilo Anesthesia: General Estimated Blood Loss (mls): 100 Operative Report Dictated: Yes
--- NOTE | 2017-04-27 19:54 | SURG ---
Surgery Side Panel Padder Note Side Panel Padder: Stew Camilo PA-C Date of Service: 04/27/17 Diagnosis: left bka stump gangrene Procedure: left above knee amputation I was present for the entirety of the operative procedure. For further detail, please refer to operative report. Visit type - Case Type Case Type: ED Admission - New patient This patient is new to me today: Yes Date on this admission: 04/27/17
[2017-04-27] MEDS ORDERED: ONDANSETRON 4 MG/2 ML VIAL IVPUSH PRN (19:59)
[2017-04-27] MEDS ORDERED: HEPARIN NA (PORCINE) 5,000 UNITS/ML 1ML VIAL IVPUSH PRN ×2 (20:05)
[2017-04-27] MEDS: LORazepam 2 MG/ML SDV VIAL IVPUSH ONE (21:05)
[2017-04-27] MEDS: SODIUM CHLORIDE 1,000 ML IV SCH (23:00)
[2017-04-27] MEDS: DOCUSATE SODIUM 100 MG CAPSULE (FP) PO SCH (23:00)
[2017-04-27] MEDS: ALPRAZolam 0.25 MG TABLET PO SCH (23:02)
[2017-04-28] MEDS ORDERED: HEPARIN NA (PORCINE) 5,000 UNITS/ML 1ML VIAL IVPUSH PRN ×2 (01:59)
[2017-04-28] MEDS: HEPARIN INFUSION - 25,000 UNITS/500 ML INFUS.BAG IVPB SCH (02:13)
[2017-04-28] MEDS ORDERED: HEPARIN NA (PORCINE) 5,000 UNITS/ML 1ML VIAL IVPUSH ONE (02:15)
[2017-04-28] MEDS: traMADol HCL 50 MG TABLET PO PRN ×2 (03:29→11:25)
[2017-04-28] MEDS: ACETAMINOPHEN 325 MG TABLET (FP) PO PRN ×2 (03:29→11:26)
[2017-04-28 07:47] LABS: HEMATOCRIT 23.3 % (35.4-49); HEMOGLOBIN 7.3 GM/dL (11.7-16.9); MCH 28.2 pg (25.7-33.7); MCHC 31.1 g/dl (32.0-35.9); MEAN CELL VOLUME 90.5 fl (80-96); MEAN PLT VOLUME 7.9 fl (7.5-11.1); PLATELET COUNT 68 K/MM3 (134-434); RBC 2.57 M/mm3 (4.00-5.60); RDW 20.4 % (11.9-15.9); WHITE BLOOD COUNT 5.8 K/mm3 (4.0-10.0)
[2017-04-28] MEDS: LORazepam 2 MG/ML SDV VIAL IVPUSH ONE (07:53)
[2017-04-28] MEDS: AMINO ACIDS/PROTEIN HYDROLYS 30 ML LIQUID.PKT PO SCH ×2 (09:00→17:30)
[2017-04-28 09:08] LABS: ALBUMIN 2.2 g/dl (3.4-5.0); ALK PHOS 113 U/L (45-117); ANION GAP 10 (8-16); BILIRUBIN,TOTAL 0.4 mg/dL (0.2-1.0); BLOOD UREA NITROGEN 55 mg/dL (7-18); CALCIUM 8.5 mg/dL (8.5-10.1); CHLORIDE 106 mmol/L (98-107); CO2 29 mmol/L (21-32); CREATININE 5.8 mg/dL (0.7-1.3); GLUCOSE,RANDOM 82 mg/dL (74-106); POTASSIUM 3.7 mmol/L (3.5-5.1); SGOT/AST 15 U/L (15-37); SGPT/ALT 10 U/L (12-78); SODIUM 145 mmol/L (136-145); TOT PROT 4.9 g/dl (6.4-8.2)
--- NOTE | 2017-04-28 11:05 | PN ---
Progress Note (short form) - Note Progress Note: Pt day#1 s/p left AKA under GA. Pt resting comfortably, no complaints. No apparent anesthetic complications; continue current treatment.
[2017-04-28] MEDS: SUCRALFATE 1 GM/10 ML UNIT DOSE CUPS PO SCH ×2 (11:24→22:21)
[2017-04-28] MEDS: GABAPENTIN 100 MG CAPSULE (FP) PO SCH ×2 (11:25→22:21)
[2017-04-28] MEDS: MIDODRINE HCL 5 MG TABLET PO SCH ×3 (11:25→18:52)
[2017-04-28] MEDS: CARVEDILOL 3.125 MG TABLET (FP) PO SCH ×2 (11:25→22:21)
[2017-04-28] MEDS: QUEtiapine FUMARATE 25 MG TABLET (FP) PO SCH ×2 (11:27→22:24)
[2017-04-28] MEDS: BUDESONIDE/FORMETEROL FUMARATE 80/4.5 mcg INHALER IH SCH ×2 (11:27→22:23)
[2017-04-28] MEDS: COLLAGENASE CLOSTRIDIUM HIST. 30 GRAMS TUBE TP SCH (11:28)
--- NOTE | 2017-04-28 12:36 | PN ---
Progress Note (short form) - Note Progress Note: POD#1 s/p left AKA Pt with complaints of some pain at the site. Unit of PRBC hanging Vital Signs Period Temp Pulse Resp BP Sys/Coleman Pulse Ox Last 24 Hr 98.1 F-99.2 F 92-106 16-20 90-124/43-70 91-100 GEN: appears comfortable Left incision site: c/d/i with coban Right: healed AKA site, dry eschar to anterior aspect: approx 2 x 1cm CBC, BMP // 06:00 12//17 06:00 A/P: 77 yo old male s/p Left AKA, POD#1 pain managment as needed Continue dressing to left AKA bacitracin to Right stump site
--- NOTE | 2017-04-28 14:19 | PN ---
Progress Note, Physician History of Present Illness: Pt is s/p Lt AKA, currently receiving blood transfusion. Tmax 99.7F. Pt denies current pain. No distress. - Current Medication List Current Medications: Active Medications Acetaminophen (Tylenol -) 650 mg PO Q6H PRN PRN Reason: FEVER OR PAIN Last Admin: 04/28/17 11:26 Dose: 650 mg Alprazolam (Xanax -) 0.25 mg PO HS [facility] Last Admin: 04/27/17 23:02 Dose: Not Given Amino Acids (Prosource No Carb Liquid Pkt) 30 ml PO BID@0800,1730 [facility] Last Admin: 04/28/17 09:00 Dose: 30 ml Bacitracin (Bacitracin -) 1 applic TP BID [facility] Budesonide/Formoterol Fumarate (Symbicort 80/4.5mcg -) 2 puff IH BID [facility] Last Admin: 04/28/17 11:27 Dose: Not Given Carvedilol (Coreg -) 3.125 mg PO BID [facility] Last Admin: 04/28/17 11:25 Dose: 3.125 mg Collagenase (Santyl -) 1 applic TP DAILY [facility] Last Admin: 04/28/17 11:28 Dose: Not Given Docusate Sodium (Colace -) 300 mg PO HS [facility] Last Admin: 04/27/17 23:00 Dose: Not Given Fentanyl (Sublimaze Injection -) 50 mcg IVPUSH [id number] PRN PRN Reason: PAIN Last Admin: 04/27/17 20:35 Dose: 50 mcg Gabapentin (Neurontin -) 100 mg PO BID [facility] Last Admin: 04/28/17 11:25 Dose: 100 mg Heparin Sodium (Porcine) (Heparin -) 1,000 unit IVPUSH PRN PRN PRN Reason: Heparin Heparin Sodium (Porcine) (Heparin -) 5,000 unit IVPUSH PRN PRN PRN Reason: Heparin Sodium Chloride (Normal Saline -) 1,000 mls @ 42 mls/hr IV ASDIR [facility] Last Admin: 04/27/17 23:00 Dose: 42 mls/hr Heparin Sodium/Dextrose (Heparin Infusion -) 25,000 units in 500 mls @ 16 mls/ hr IVPB TITR [facility]; 800 UNITS/HR PRN Reason: Protocol Last Admin: 04/28/17 02:13 Dose: 900 units/hr, 18 mls/hr Midodrine (Proamatine -) 10 mg PO TID-MID [facility] Last Admin: 04/28/17 11:25 Dose: 10 mg Ondansetron HCl (Zofran Injection) 4 mg IVPUSH Q6H PRN PRN Reason: NAUSEA AND/OR VOMITING Quetiapine Fumarate (Seroquel -) 25 mg PO BID [facility] Last Admin: 04/28/17 11:27 Dose: 25 mg Rosuvastatin Calcium (Crestor -) 20 mg PO HS [facility] Last Admin: 04/27/17 23:00 Dose: Not Given Sucralfate (Carafate Oral Suspension -) 0.5 gm PO BID [facility] Last Admin: 04/28/17 11:24 Dose: 0.5 gm Tramadol HCl (Ultram -) 50 mg PO Q6H PRN PRN Reason: PAIN Last Admin: 04/28/17 11:25 Dose: 50 mg - Objective Vital Signs: Vital Signs Temperature 99.7 F H 04/28/17 13:51 Pulse Rate 102 H 04/28/17 13:51 Respiratory Rate 20 04/28/17 13:51 Blood Pressure 101/55 04/28/17 13:51 O2 Sat by Pulse Oximetry (%) 99 04/28/17 09:00 Constitutional: Yes: No Distress, Calm Cardiovascular: Yes: Regular Rate and Rhythm Respiratory: Yes: CTA Bilaterally Gastrointestinal: Yes: Normal Bowel Sounds, Soft Extremities: Yes: Amputation (Lt AKA dressed, Rt stump without drainage) Neurological: Yes: Other (easily arousable/verbally responsive) Labs: CBC, BMP 04/28/17 06:00 04/28/17 06:00 INR, PTT INR 1.02 (0.82-1.09) D 04/27/17 08:00 Problem List - Problems (1) ESRD (end stage renal disease) Code(s): N18.6 - END STAGE RENAL DISEASE (2) Atrial fibrillation Code(s): I48.91 - UNSPECIFIED ATRIAL FIBRILLATION Qualifiers: Atrial fibrillation type: persistent Qualified Code(s): I48.1 - Persistent atrial fibrillation (3) Critical lower limb ischemia Code(s): I99.8 - OTHER DISORDER OF CIRCULATORY SYSTEM (4) HLD (hyperlipidemia) Code(s): E78.5 - HYPERLIPIDEMIA, UNSPECIFIED Qualifiers: Hyperlipidemia type: pure hypercholesterolemia Qualified Code(s): E78.00 - Pure hypercholesterolemia, unspecified (5) HTN (hypertension) Code(s): I10 - ESSENTIAL (PRIMARY) HYPERTENSION Qualifiers: Hypertension type: essential hypertension Qualified Code(s): I10 - Essential (primary) hypertension (6) Open wnd foot-complicated Code(s): S91.309A - UNSPECIFIED OPEN WOUND, UNSPECIFIED FOOT, INITIAL ENCOUNTER (7) Peripheral arterial disease Code(s): I73.9 - PERIPHERAL VASCULAR DISEASE, UNSPECIFIED Assessment/Plan LT BKA stump -non-healing wound s/p Lt AKA - mild temp elevation, no signs of infection - continue monitor off antibiotics - continue wound care vitals stable
--- NOTE | 2017-04-28 14:29 | PN ---
Progress Note (short form) - Note Progress Note: Renal Follow up for ESRD on HD Pt seen and examined at the bedside s/p left AKA yesterday pt without complaints get get PRBC transfusion today Vital Signs Temperature 99.7 F H 04/28/17 13:51 Pulse Rate 102 H 04/28/17 13:51 Respiratory Rate 20 04/28/17 13:51 Blood Pressure 101/55 04/28/17 13:51 O2 Sat by Pulse Oximetry (%) 99 04/28/17 09:00 Intake & Output 04/25/17 04/26/17 04/27/17 04/28/17 23:59 23:59 23:59 23:59 Intake Total 200 775 450 744 Output Total 100 Balance 200 775 350 744 NAD RRR, no M/R Soft NT/ND Abd right AKA, Left BKA in dressing CBC, BMP 04/28/17 06:00 04/28/17 06:00 Current Medications Acetaminophen (Tylenol -) 650 mg PO Q6H PRN PRN Reason: FEVER OR PAIN Last Admin: 04/28/17 11:26 Dose: 650 mg Alprazolam (Xanax -) 0.[address] [facility] Last Admin: 04/27/17 23:02 Dose: Not Given Amino Acids (Prosource No Carb Liquid Pkt) 30 ml PO BID@0800,1730 [facility] Last Admin: 04/28/17 09:00 Dose: 30 ml Bacitracin (Bacitracin -) 1 applic TP BID [facility] Budesonide/Formoterol Fumarate (Symbicort 80/4.5mcg -) [address] [facility] Last Admin: 04/28/17 11:27 Dose: Not Given Carvedilol (Coreg -) 3.125 mg PO BID [facility] Last Admin: 04/28/17 11:25 Dose: 3.125 mg Collagenase (Santyl -) [address] [facility] Last Admin: 04/28/17 11:28 Dose: Not Given Docusate Sodium (Colace -) [address] [facility] Last Admin: 04/27/17 23:00 Dose: Not Given Fentanyl (Sublimaze Injection -) 50 mcg IVPUSH [id number] PRN PRN Reason: PAIN Last Admin: 04/27/17 20:35 Dose: 50 mcg Gabapentin (Neurontin -) [address] [facility] Last Admin: 04/28/17 11:25 Dose: 100 mg Heparin Sodium (Porcine) (Heparin -) 1,000 unit IVPUSH PRN PRN PRN Reason: Heparin Heparin Sodium (Porcine) (Heparin -) 5,000 unit IVPUSH PRN PRN PRN Reason: Heparin Sodium Chloride (Normal Saline -) 1,000 mls @ 42 mls/hr IV ASDIR [facility] Last Admin: 04/27/17 23:00 Dose: 42 mls/hr Heparin Sodium/Dextrose (Heparin Infusion -) 25,000 units in 500 mls @ 16 mls/ hr IVPB TITR [facility]; 800 UNITS/HR PRN Reason: Protocol Last Admin: 04/28/17 02:13 Dose: 900 units/hr, 18 mls/hr Midodrine (Proamatine -) [address] PO TID-MID [facility] Last Admin: 04/28/17 11:25 Dose: 10 mg Ondansetron HCl (Zofran Injection) 4 mg IVPUSH Q6H PRN PRN Reason: NAUSEA AND/OR VOMITING Quetiapine Fumarate (Seroquel -) [address] [facility] Last Admin: 04/28/17 11:27 Dose: 25 mg Rosuvastatin Calcium (Crestor -) [address] [facility] Last Admin: 04/27/17 23:00 Dose: Not Given Sucralfate (Carafate Oral Suspension -) 0.[address] [facility] Last Admin: 04/28/17 11:24 Dose: 0.5 gm Tramadol HCl (Ultram -) 50 mg PO Q6H PRN PRN Reason: PAIN Last Admin: 04/28/17 11:25 Dose: 50 mg 77 year old gentleman with PMhx of ESRD on HD (started in [place]) Hypertension, DVT, PVD s/p right AKA s/p recent admission for [place] wound that required amputation now presents from [place] s/p fall. 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
--- NOTE | 2017-04-28 14:43 | PN ---
Progress Note (short form) - Note Progress Note: SUBJECTIVE: Patient seen and examined at the bedside, he has no complaints at this time. Lethargic Current Medications Generic Name Dose Route Start Last Admin Trade Name Frebest PRN Reason Stop Dose Admin Acetaminophen 650 mg 04/27/17 21:08 04/28/17 11:26 Tylenol - PO 650 mg Q6H PRN Administration FEVER OR PAIN Alprazolam 0.25 mg 04/27/17 22:00 04/27/17 23:02 Xanax - PO Not Given HS [facility] Amino Acids 30 ml 04/28/17 08:00 04/28/17 09:00 Prosource No Carb Liquid Pkt PO 30 ml BID@0800,1730 [facility] Administration Bacitracin 1 applic 04/28/17 22:00 Bacitracin - TP BID [facility] Budesonide/Formoterol Fumarate 2 puff 04/27/17 22:00 04/28/17 11:27 Symbicort 80/4.5mcg - IH Not Given BID [facility] Carvedilol 3.125 mg 04/27/17 22:00 04/28/17 11:25 Coreg - PO 3.125 mg BID [facility] Administration Collagenase 1 applic 04/28/17 10:00 04/28/17 11:28 Santyl - TP Not Given DAILY [facility] Docusate Sodium 300 mg 04/27/17 22:00 04/27/17 23:00 Colace - PO Not Given HS [facility] Epoetin Nash 20,000 units 04/29/17 06:00 Epogen - IVPUSH 04/29/17 06:01 ONCE ONE Fentanyl 50 mcg 04/27/17 19:59 04/27/17 20:35 Sublimaze Injection - IVPUSH 50 mcg [id number] PRN Administration PAIN Gabapentin 100 mg 04/27/17 22:00 04/28/17 11:25 Neurontin - PO 100 mg BID [facility] Administration Heparin Sodium (Porcine) 1,000 unit 04/28/17 01:59 Heparin - IVPUSH PRN PRN Heparin Heparin Sodium (Porcine) 5,000 unit 04/28/17 01:59 Heparin - IVPUSH PRN PRN Heparin Sodium Chloride 1,000 mls @ 42 mls/hr 04/27/17 20:00 04/27/17 23:00 Normal Saline - IV 42 mls/hr ASDIR [facility] Administration Heparin Sodium/Dextrose 25,000 units in 500 mls @ 16 mls/hr 04/28/17 02:00 02:13 Heparin Infusion - IVPB 900 units/hr TITR [facility] 18 mls/hr Protocol Administration 800 UNITS/HR Midodrine 10 mg 04/28/17 10:00 04/28/17 11:25 Proamatine - PO 10 mg TID-MID [facility] Administration Ondansetron HCl 4 mg 04/27/17 19:59 Zofran Injection IVPUSH Q6H PRN NAUSEA AND/OR VOMITING Quetiapine Fumarate 25 mg 04/27/17 22:00 04/28/17 11:27 Seroquel - PO 25 mg BID [facility] Administration Rosuvastatin Calcium 20 mg 04/27/17 22:00 04/27/17 23:00 Crestor - PO Not Given HS [facility] Sucralfate 0.5 gm 04/27/17 22:00 04/28/17 11:24 Carafate Oral Suspension - PO 0.5 gm BID [facility] Administration Tramadol HCl 50 mg 04/27/17 21:08 04/28/17 11:25 Ultram - PO 50 mg Q6H PRN Administration PAIN OBJECTIVE: Vital Signs Period Temp Pulse Resp BP Sys/Coleman Pulse Ox Last 24 Hr 98.1 F-99.7 F 92-106 16-20 90-124/43-70 91-100 PE Neuro: awake, alert, cn 2-12intact confused at times Pulm: CTAB CV: s1 s2 irregular rate + 2/6 systolic murmur Abd: soft, nt, nd +bs Ext: R AKA amputation, left AKA, dressing c/d/i CBCD WBC 5.8 K/mm3 (4.0-10.0) 04/28/17 06:00 RBC 2.57 M/mm3 (4.00-5.60) L 04/28/17 06:00 Hgb 7.3 GM/dL (11.7-16.9) L D 04/28/17 06:00 Hct 23.3 % (35.4-49) L 04/28/17 06:00 MCV 90.5 fl (80-96) 04/28/17 06:00 MCHC 31.1 g/dl (32.0-35.9) L 04/28/17 06:00 RDW 20.4 % (11.9-15.9) H 04/28/17 06:00 Plt Count 68 K/MM3 (134-434) L 04/28/17 06:00 MPV 7.9 fl (7.5-11.1) 04/28/17 06:00 CMP Sodium 145 mmol/L (136-145) 04/28/17 06:00 Potassium 3.7 mmol/L (3.5-5.1) 04/28/17 06:00 Chloride 106 mmol/L (98-107) 04/28/17 06:00 Carbon Dioxide 29 mmol/L (21-32) 04/28/17 06:00 Anion Gap 10 (8-16) 04/28/17 06:00 BUN 55 mg/dL (7-18) H D 04/28/17 06:00 Creatinine 5.8 mg/dL (0.7-1.3) H D 04/28/17 06:00 Creat Clearance w eGFR 9.55 (>60) 04/28/17 06:00 Random Glucose 82 mg/dL (74-106) D 04/28/17 06:00 Calcium 8.5 mg/dL (8.5-10.1) 04/28/17 06:00 Total Bilirubin 0.4 mg/dL (0.2-1.0) D 04/28/17 06:00 AST 15 U/L (15-37) D 04/28/17 06:00 ALT 10 U/L (12-78) L 04/28/17 06:00 Alkaline Phosphatase 113 U/L (45-117) 04/28/17 06:00 Total Protein 4.9 g/dl (6.4-8.2) L 04/28/17 06:00 Albumin 2.2 g/dl (3.4-5.0) L 04/28/17 06:00 Assessment: 77 year old male with PMHx HTN, CAD, Afib, PVD, ESRD, anemia, COPD, GERD, anxiety, DVT, AAA-infrarenal, Hepatitis B, 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 Plan: 1. ESRD - HD per Renal service 2. L BKA/PVD - AKA 04/27/17 - Cont gabapentin for pain - Off all antibiotics - Appreciate vascular surgery consult 3. HTN/HLD/CAD - Cont home crestor, coreg 4. s/p fall - Head CT negative - Fall precautions 5. Afib, rate controlled - Resumed on Heparin gtt - Resume Coumadin once cleared from surgery 6. Thrombocytopenia - present on previous admission, labile, monitor 7. GERD - Hold protonix, if symptoms arise restart ppi 8. DVT PPX - On Heparin gtt CODE STATUS: FULL CODE Visit type - Emergency Visit Emergency Visit: Yes ED Registration Date: 04/21/17 Care time: The patient presented to the Emergency Department on the above date and was hospitalized for further evaluation of their emergent condition. - New Patient This patient is new to me today: No - Critical Care Critical Care patient: No
--- NOTE | 2017-04-28 17:49 | OP ---
DATE OF OPERATION: 04/27/2017 PREOPERATIVE DIAGNOSIS: Left below knee amputation gangrene. POSTOPERATIVE DIAGNOSIS: Left below knee amputation gangrene. PROCEDURE: Left above knee amputation. SURGEON: Faizan Tamayo D.O. ANESTHESIA: General. BLOOD LOSS: 100 mL. INDICATION: The patient is a 77-year-old male that has left foot gangrene and a couple weeks ago had a left BKA performed. He then went to the alf, then fell down and his stump dehisced and became infected. Thereafter he was in the hospital, has gotten antibiotics and now needs a left above-knee amputation. Patient's sone consented for the procedure understanding all risks, benefits, and alternatives and was then taken to the operating room. DESCRIPTION OF PROCEDURE: Once in the operating room, he was laid in operative supine manner. General anesthesia was administered to the patient. We then prepped and draped the left lower extremity in sterile surgical manner. We then went 4 fingerbreadths above the knee into a fishmouth incision using a skin marker. We then went ahead and used a number 15 blade and cut along our incision and cut along the entire fishmouth incision, Bovie cautery was used to control hemostasis, and we got down through all the subcutaneous tissue and got down to the femur. We then took down all the muscular attachments in the femoral muscles in the medial lateral compartment. We then took down the hamstring muscles and posteriorly, we then went medially and went to the fascia and got down to our femoral artery and vein; those were clamped and suture ligated using 0 silk. Once all the muscular attachments were taken down, we used a saw and transected the femur and leg was sent to pathology. We then went ahead and used our saw and doubled the femur. Bovie electrocautery was used to control hemostasis, and the wound was copiously irrigated. We then took 2-0 Vicryl, and the fascia was approximated in an interrupted manner, and the skin was closed with skin eliezer. Area was wet and dried. After skin eliezer were placed, we placed Xeroform, 4x4s, ABD pads, Kerlix, and Coban. Patient tolerated procedure with no complications. Patient transferred back in stable condition. Total blood loss 100 mL. FAIZAN TAMAYO DO [id number]
[2017-04-28] MEDS: SODIUM CHLORIDE 1,000 ML IV SCH (20:00)
[2017-04-28] MEDS: DOCUSATE SODIUM 100 MG CAPSULE (FP) PO SCH (22:21)
[2017-04-28] MEDS: ALPRAZolam 0.25 MG TABLET PO SCH (22:22)
[2017-04-28] MEDS: ROSUVASTATIN CA 20 MG TABLET (FP) PO SCH (22:24)
[2017-04-28] MEDS: BACITRACIN 15 GM TUBE TOPICAL OINTMENT TP SCH (23:14)
[2017-04-29] MEDS: ACETAMINOPHEN 325 MG TABLET (FP) PO PRN ×2 (01:14→16:57)
[2017-04-29] MEDS: traMADol HCL 50 MG TABLET PO PRN ×2 (01:14→15:42)
[2017-04-29] MEDS: HEPARIN INFUSION - 25,000 UNITS/500 ML INFUS.BAG IVPB SCH (01:16)
[2017-04-29] MEDS: AMINO ACIDS/PROTEIN HYDROLYS 30 ML LIQUID.PKT PO SCH ×2 (09:03→18:31)
[2017-04-29] MEDS: GABAPENTIN 100 MG CAPSULE (FP) PO SCH ×2 (09:04→21:50)
[2017-04-29] MEDS: SUCRALFATE 1 GM/10 ML UNIT DOSE CUPS PO SCH ×2 (09:04→21:50)
[2017-04-29] MEDS: CARVEDILOL 3.125 MG TABLET (FP) PO SCH ×2 (09:04→21:42)
[2017-04-29] MEDS: QUEtiapine FUMARATE 25 MG TABLET (FP) PO SCH ×2 (09:05→21:41)
[2017-04-29] MEDS: MIDODRINE HCL 5 MG TABLET PO SCH ×3 (09:05→18:32)
[2017-04-29] MEDS ORDERED: PT OWN MED DRAWER 7, Y5N ONE (09:17)
--- NOTE | 2017-04-29 09:46 | PN ---
Progress Note (short form) - Note Progress Note: SUBJECTIVE: Patient seen and examined at the bedside, he spit out his medications today. He is refusing to open his eyes. He states he has pain but is refusing all pain medications. S/p 1u PRBC yesterday, Hgb was 7.3 yesterday and he was lethargic Awaiting recommendations from surgery for restarting Coumadin Current Medications Generic Name Dose Route Start Last Admin Trade Name Freq PRN Reason Stop Dose Admin Acetaminophen 650 mg 04/27/17 21:08 04/29/17 01:14 Tylenol - PO 650 mg Q6H PRN Administration FEVER OR PAIN Alprazolam 0.25 mg 04/27/17 22:00 04/28/17 22:22 Xanax - PO 0.25 mg HS [facility] Administration Amino Acids 30 ml 04/28/17 08:00 04/28/17 17:30 Prosource No Carb Liquid Pkt PO 30 ml BID@0800,1730 [facility] Administration Bacitracin 1 applic 04/28/17 22:00 04/28/17 23:14 Bacitracin - TP 1 applic BID [facility] Administration Budesonide/Formoterol Fumarate 2 puff 04/27/17 22:00 04/28/17 22:23 Symbicort 80/4.5mcg - IH 2 puff BID [facility] Administration Carvedilol 3.125 mg 04/27/17 22:00 04/28/17 22:21 Coreg - PO 3.125 mg BID [facility] Administration Collagenase 1 applic 04/28/17 10:00 04/28/17 11:28 Santyl - TP Not Given DAILY [facility] Docusate Sodium 300 mg 04/27/17 22:00 04/28/17 22:21 Colace - PO 300 mg HS [facility] Administration Epoetin Nash 20,000 units 04/29/17 06:00 Epogen - IVPUSH 04/29/17 06:01 ONCE ONE Fentanyl 50 mcg 04/27/17 19:59 04/27/17 20:35 Sublimaze Injection - IVPUSH 50 mcg [id number] PRN Administration PAIN Gabapentin 100 mg 04/27/17 22:00 04/28/17 22:21 Neurontin - PO 100 mg BID [facility] Administration Heparin Sodium (Porcine) 1,000 unit 04/28/17 01:59 Heparin - IVPUSH PRN PRN Heparin Heparin Sodium (Porcine) 5,000 unit 04/28/17 01:59 Heparin - IVPUSH PRN PRN Heparin Sodium Chloride 1,000 mls @ 42 mls/hr 04/27/17 20:00 04/28/17 20:00 Normal Saline - IV 42 mls/hr ASDIR [facility] Administration Heparin Sodium/Dextrose 25,000 units in 500 mls @ 16 mls/hr 04/28/17 02:00 01:16 Heparin Infusion - IVPB 900 units/hr TITR [facility] 18 mls/hr Protocol Administration 800 UNITS/HR Midodrine 10 mg 04/28/17 10:00 04/28/17 18:52 Proamatine - PO 10 mg TID-MID [facility] Administration Ondansetron HCl 4 mg 04/27/17 19:59 Zofran Injection IVPUSH Q6H PRN NAUSEA AND/OR VOMITING Quetiapine Fumarate 25 mg 04/27/17 22:00 04/28/17 22:24 Seroquel - PO 25 mg BID [facility] Administration Rosuvastatin Calcium 20 mg 04/27/17 22:00 04/28/17 22:24 Crestor - PO 20 mg HS [facility] Administration Sucralfate 0.5 gm 04/27/17 22:00 04/28/17 22:21 Carafate Oral Suspension - PO 0.5 gm BID [facility] Administration Tramadol HCl 50 mg 04/27/17 21:08 04/29/17 01:14 Ultram - PO 50 mg Q6H PRN Administration PAIN OBJECTIVE: Vital Signs Period Temp Pulse Resp BP Sys/Coleman Pulse Ox Last 24 Hr 97.3 F-99.7 F 81-106 20-24 78-124/43-66 96 PE Neuro: awake, alert, cn 2-12intact confused at times Pulm: CTAB CV: s1 s2 irregular rate + 2/6 systolic murmur Abd: soft, nt, nd +bs Ext: R AKA amputation, left AKA, dressing c/d/i CBCD WBC 5.8 K/mm3 (4.0-10.0) 04/28/17 06:00 RBC 2.57 M/mm3 (4.00-5.60) L 04/28/17 06:00 Hgb 7.3 GM/dL (11.7-16.9) L D 04/28/17 06:00 Hct 23.3 % (35.4-49) L 04/28/17 06:00 MCV 90.5 fl (80-96) 04/28/17 06:00 MCHC 31.1 g/dl (32.0-35.9) L 04/28/17 06:00 RDW 20.4 % (11.9-15.9) H 04/28/17 06:00 Plt Count 68 K/MM3 (134-434) L 04/28/17 06:00 MPV 7.9 fl (7.5-11.1) 04/28/17 06:00 CMP Sodium 145 mmol/L (136-145) 04/28/17 06:00 Potassium 3.7 mmol/L (3.5-5.1) 04/28/17 06:00 Chloride 106 mmol/L (98-107) 04/28/17 06:00 Carbon Dioxide 29 mmol/L (21-32) 04/28/17 06:00 Anion Gap 10 (8-16) 04/28/17 06:00 BUN 55 mg/dL (7-18) H D 04/28/17 06:00 Creatinine 5.8 mg/dL (0.7-1.3) H D 04/28/17 06:00 Creat Clearance w eGFR 9.55 (>60) 04/28/17 06:00 Random Glucose 82 mg/dL (74-106) D 04/28/17 06:00 Calcium 8.5 mg/dL (8.5-10.1) 04/28/17 06:00 Total Bilirubin 0.4 mg/dL (0.2-1.0) D 04/28/17 06:00 AST 15 U/L (15-37) D 04/28/17 06:00 ALT 10 U/L (12-78) L 04/28/17 06:00 Alkaline Phosphatase 113 U/L (45-117) 04/28/17 06:00 Total Protein 4.9 g/dl (6.4-8.2) L 04/28/17 06:00 Albumin 2.2 g/dl (3.4-5.0) L 04/28/17 06:00 Assessment: 77 year old male with PMHx HTN, CAD, Afib, PVD, ESRD, anemia, COPD, GERD, anxiety, DVT, AAA-infrarenal, Hepatitis B, 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 Plan: 1. Anemia - S/p 1u PRBC yesterday - Repeat H/H remains low today, transfuse with HD - Stool for occult blood positive, restart Protonix - F/u GI consult for further recommendations 2. ESRD - For HD today - HD per Renal service 3. L BKA/PVD - AKA 04/27/17 - Cont gabapentin for pain - Off all antibiotics - Pain management - Appreciate vascular surgery consult 4. HTN/HLD/CAD - Cont home crestor, coreg 5. s/p fall - Head CT negative - Fall precautions 6. Afib, rate controlled - Resumed on Heparin gtt - Resume Coumadin once cleared from surgery 7. Thrombocytopenia - present on previous admission, labile, monitor 8. GERD - Hold protonix, if symptoms arise restart ppi 9. DVT PPX - On Heparin gtt CODE STATUS: FULL CODE Visit type - Emergency Visit Emergency Visit: Yes ED Registration Date: 04/21/17 Care time: The patient presented to the Emergency Department on the above date and was hospitalized for further evaluation of their emergent condition. - New Patient This patient is new to me today: No - Critical Care Critical Care patient: No
[2017-04-29] MEDS: BUDESONIDE/FORMETEROL FUMARATE 80/4.5 mcg INHALER IH SCH ×2 (10:05→21:51)
[2017-04-29 10:55] LABS: HEMATOCRIT 22.3 % (35.4-49); HEMOGLOBIN 7.1 GM/dL (11.7-16.9); MCH 28.2 pg (25.7-33.7); MCHC 31.8 g/dl (32.0-35.9); MEAN CELL VOLUME 88.8 fl (80-96); MEAN PLT VOLUME 7.8 fl (7.5-11.1); PLATELET COUNT 67 K/MM3 (134-434); RBC 2.52 M/mm3 (4.00-5.60); RDW 20.4 % (11.9-15.9); WHITE BLOOD COUNT 5.1 K/mm3 (4.0-10.0)
[2017-04-29] MEDS ORDERED: EPOETIN ALFA 20,000 UNIT/1 ML VIAL IVPUSH ONE (11:00)
--- NOTE | 2017-04-29 13:31 | PN ---
Progress Note (short form) - Note Progress Note: Renal Follow up for ESRD on HD Pt seen and examined during dialysis HD stable BP at [place], UF 2L as tolerated AVF with good flow Vital Signs Temperature 98.8 F 04/29/17 10:05 Pulse Rate 92 H 04/29/17 13:10 Respiratory Rate 18 04/29/17 13:10 Blood Pressure 104/64 04/29/17 13:10 O2 Sat by Pulse Oximetry (%) 97 04/29/17 09:00 Intake & Output 04/26/17 04/27/17 04/28/17 04/29/17 23:59 23:59 23:59 23:59 Intake Total 323 171 1522 Output Total 100 0 Balance 800 102 3768 NAD RRR, no M/R Soft NT/ND Abd right AKA, Left BKA in dressing CBC, BMP 04/29/17 10:15 04/28/17 06:00 Current Medications Acetaminophen (Tylenol -) 650 mg PO Q6H PRN PRN Reason: FEVER OR PAIN Last Admin: 04/29/17 01:14 Dose: 650 mg Alprazolam (Xanax -) 0.25 mg PO HS [facility] Last Admin: 04/28/17 22:22 Dose: 0.25 mg Amino Acids (Prosource No Carb Liquid Pkt) 30 ml PO BID@0800,1730 [facility] Last Admin: 04/29/17 09:03 Dose: Not Given Bacitracin (Bacitracin -) 1 applic TP BID [facility] Last Admin: 04/28/17 23:14 Dose: 1 applic Budesonide/Formoterol Fumarate (Symbicort 80/4.5mcg -) 2 puff IH BID [facility] Last Admin: 04/28/17 22:23 Dose: 2 puff Carvedilol (Coreg -) 3.125 mg PO BID [facility] Last Admin: 04/29/17 09:04 Dose: Not Given Collagenase (Santyl -) 1 applic TP DAILY [facility] Last Admin: 04/28/17 11:28 Dose: Not Given Docusate Sodium (Colace -) 300 mg PO HS [facility] Last Admin: 04/28/17 22:21 Dose: 300 mg Fentanyl (Sublimaze Injection -) 50 mcg IVPUSH [id number] PRN PRN Reason: PAIN Last Admin: 12/13/17 20:35 Dose: 50 mcg Gabapentin (Neurontin -) 100 mg PO BID [facility] Last Admin: 04/29/17 09:04 Dose: Not Given Heparin Sodium (Porcine) (Heparin -) 1,000 unit IVPUSH PRN PRN PRN Reason: Heparin Heparin Sodium (Porcine) (Heparin -) 5,000 unit IVPUSH PRN PRN PRN Reason: Heparin Sodium Chloride (Normal Saline -) 1,000 mls @ 42 mls/hr IV ASDIR [facility] Last Admin: 04/28/17 20:00 Dose: 42 mls/hr Heparin Sodium/Dextrose (Heparin Infusion -) 25,000 units in 500 mls @ 16 mls/ hr IVPB TITR [facility]; 800 UNITS/HR PRN Reason: Protocol Last Admin: 04/29/17 01:16 Dose: 900 units/hr, 18 mls/hr Midodrine (Proamatine -) 10 mg PO TID-MID [facility] Last Admin: 04/29/17 09:05 Dose: Not Given Ondansetron HCl (Zofran Injection) 4 mg IVPUSH Q6H PRN PRN Reason: NAUSEA AND/OR VOMITING Pantoprazole Sodium (Protonix -) 40 mg PO DAILY [facility] Quetiapine Fumarate (Seroquel -) 25 mg PO BID [facility] Last Admin: 04/29/17 09:05 Dose: Not Given Rosuvastatin Calcium (Crestor -) 20 mg PO HS [facility] Last Admin: 04/28/17 22:24 Dose: 20 mg Sucralfate (Carafate Oral Suspension -) 0.5 gm PO BID [facility] Last Admin: 04/29/17 09:04 Dose: Not Given Tramadol HCl (Ultram -) 50 mg PO Q6H PRN PRN Reason: PAIN Last Admin: 04/29/17 01:14 Dose: 50 mg 77 year old gentleman with PMhx of ESRD on HD (started in [place]) Hypertension, DVT, PVD s/p right AKA s/p recent admission for [place] wound that required amputation now presents from [place] s/p fall. #ESRD on HD tolerating dialysis well dose all meds for intermittent HD #PVD s/p BKA s/p AKA wound care pain control vascular follow up #Anemia in CKD to get 2 prbc transfused with HD Epogen with Hd trend CBC Raghu Boogie DO
--- NOTE | 2017-04-29 14:07 | CON.GI ---
Consult Consult Specialty:: GI - History of Present Illness History of Present Illness: Chart reviewed. Events noted. 77ym with PMH HTN, CAD, Afib, PVD, ESRD, anemia, COPD, GERD, DVT, AAA-infrarenal , Hepatitis B, L BKA on 02/28/17 and L AKA on 03/28/17 presented to the ED from [place] 1week ago s/p Fall. Was on Coumadin and therapeutic heparin up until the most recent surgery. Noted to have drop in Hgb from 9.4 g/dl on admission to 7.1 today. Had L AKA on . Received a total of 3 units of PRBC. 2 units prior to the surgery and one yesterday. The most pronounced decrease in Hgb on 03/29/17, the day after L AKA. Hemoccult positive today with no other external signs of significant, ongoing GI bleeding. No ovidio melena, hematochezia, hematemesis. The patient was seen in consultation for the same during admission in March. - History Source History Provided By: Medical Record - Past Medical History Cardio/Vascular: Yes: Deep Vein Thrombosis, HTN, Other (PVD) Renal/: Yes: Renal Failure, Hemodialysis - Past Surgical History Past Surgical History: Yes: Amputation - Alcohol/Substance Use Hx Alcohol Use: No - Smoking History Smoking history: Never smoked Have you smoked in the past 12 months: No Aproximately how many cigarettes per day: 0 - Social History Usual Living Arrangement: With Child Home Medications - Allergies Allergies/Adverse Reactions: Allergies Allergy/AdvReac Type Severity Reaction Status Date / Time No Known Allergies Allergy Verified 04/20/17 13:33 - Home Medications Home Medications: Ambulatory Orders Alprazolam [Xanax] 0.25 mg PO HS 03/14/17 Cilostazol [Pletal -] 100 mg PO BID 03/14/17 Esomeprazole Magnesium 40 mg PO DAILY 03/14/17 Fluticasone/Salmeterol [Advair 250-50 Diskus] 1 each IH BID 03/14/17 Glucosamine Sulfate Dipot Chlr [Glucosamine Sulfate] 1,000 mg PO DAILY 03/14/17 Meloxicam [Mobic] 15 mg PO DAILY 03/14/17 Rosuvastatin Calcium [Crestor] 20 mg PO DAILY 03/14/17 Sucralfate [Carafate] 5 ml PO BID 03/14/17 Tramadol HCl [Ultram -] 50 mg PO Q4H PRN 03/14/17 Acetaminophen [Tylenol .Regular Strength -] 650 mg PO Q6H PRN tablet 04/18/17 Amino Acids/Protein Hydrolys [Prosource No Carb Liquid Pkt] 30 ml PO BID@0800, 1730 packet 04/18/17 Carvedilol [Coreg -] 3.125 mg PO BID tablet 04/18/17 Diphenhydramine HCl [Benadryl Capsule -] 25 mg PO Q6H PRN capsule 04/18/17 Docusate Sodium [Colace -] 300 mg PO HS capsule 04/18/17 Doxycycline Hyclate [Vibramycin -] 100 mg PO BID@1000,1800 capsule 04/18/17 Gabapentin [Neurontin -] 100 mg PO BID capsule 04/18/17 Midodrine HCl [Proamatine -] 10 mg PO TID-MID tablet 04/18/17 Quetiapine Fumarate [Seroquel -] 25 mg PO BID tablet 04/18/17 Ranitidine Oral Solution [Zantac Oral Solution -] 150 mg PO DAILY cup 04/18/17 Silver Sulfadiazine 1% Top Cr [Silvadene -] 1 applic TP BID jar 04/18/17 Warfarin Na [Coumadin -] 2 mg PO DAILY@1800 tablet 04/18/17 Family Disease History - Family Disease History Family History: Unremarkable (non-contributing) Review of Systems Findings/Remarks: Please refer to H&P. Hospitalized for 7+ days Physical Exam-GI Vital Signs: Vital Signs Temperature 98.8 F 04/29/17 10:05 Pulse Rate 92 H 04/29/17 13:45 Respiratory Rate 18 04/29/17 13:45 Blood Pressure 105/64 04/29/17 13:45 O2 Sat by Pulse Oximetry (%) 97 04/29/17 09:00 Labs: CBC, BMP 04/29/17 10:15 04/28/17 06:00 INR, PTT INR 1.02 (0.82-1.09) D 04/27/17 08:00 Problem List - Problems (1) ESRD (end stage renal disease) Code(s): N18.6 - END STAGE RENAL DISEASE (2) Anemia Code(s): D64.9 - ANEMIA, UNSPECIFIED (3) Anticoagulant long-term use Code(s): Z79.01 - BLAST FURNACE KEEPER (CURRENT) USE OF ANTICOAGULANTS (4) Atrial fibrillation Code(s): I48.91 - UNSPECIFIED ATRIAL FIBRILLATION Qualifiers: Atrial fibrillation type: persistent Qualified Code(s): I48.1 - Persistent atrial fibrillation (5) S/P AKA (above knee amputation) Code(s): Z89.619 - ACQUIRED ABSENCE OF UNSPECIFIED LEG ABOVE KNEE Qualifiers: Laterality: right Qualified Code(s): Z89.611 - Acquired absence of right leg above knee (6) Systolic dysfunction, left ventricle Code(s): I51.9 - HEART DISEASE, UNSPECIFIED (7) Heme positive stool Code(s): R19.5 - OTHER FECAL ABNORMALITIES Assessment/Plan Extremely debilitated patient with multiple, active medical issues and recent surgery for gangrene. On anticoagulants up until few days ago found to have hemocult positive stools. Normocytic, mormochromic anemia Thrombocytopenia Non-urgent EGD and colonoscopy are indicated for hemoccult positive stools, however, unless actively bleeding, I would postpone any endoscopic procedures at thi s time. Agree with keeping Hgb above 8 g/dl PPI PO QD Close monitoring for signs of active, significant GI bleeding Iron, if deficient Will follow
--- NOTE | 2017-04-29 14:47 | PATH ---
Surgical Pathology Report Patient Name: NEFTALI ROMAN Med. Rec. #: [id number] /Age/Gender: 1940 (Age: 77) / M Account: [id number] Location: [facility] MED/SURG Taken: 04/27/2017 Received: 04/28/2017 Reported: 04/29/2017 Physicians: KARRIE Robles Specimen(s) Received LEFT LEG ABOVE THE KNEE Clinical History Gangrene Final Diagnosis LEFT LEG, ABOVE KNEE AMPUTATION: ABOVE KNEE AMPUTATION STATUS POST BELOW KNEE AMPUTATION WITH SEVERE CALCIFIC ATHEROSCLEROSIS. POPLITEAL ARTERY VASCULAR STENT PRESENT. GANGRENOUS NECROSIS OF SKIN AND SOFT TISSUE PRESENT, WITH APPARENT ACUTE OSTEOMYELITIS OF BONE AT AMPUTATION STUMP. BONE MARROW FROM MARGIN FREE OF OSTEOMYELITIS. SKIN AND SOFT TISSUE OF MARGIN SHOW ISCHEMIC CHANGES, BUT APPEARS VIABLE. Comment: Also see [id number]. Electronically Signed Alan Ashton M.D. Gross Description Received fresh labeled "left leg above the knee," is a 32 cm in length product of a left above the knee amputation. There is a 4 cm in length exposed portion of femur at the proximal aspect of the specimen. The distal aspect of the leg appears to have been previously amputated. The previous amputation site displays an 11.0 x 7.0 cm ulcerated, gangrenous lesion with exposed bone. There is an additional 8.0 x 3.5 cm black, gangrenous lesion on the knee. The knee lesion is 10 cm from the skin and soft tissue margin. There is a alegre metallic popliteal stent present. Sectioning of the vasculature displays diffuse severe atherosclerosis. Diesel Dinkey Operator sections are submitted in 7 cassettes as follows: 1-previous amputation site lesion with bone, following decalcification; 2-knee lesion; 3-skin and soft tissue margin; 4-bone marrow from margin, following decalcification; 5-popliteal artery, following decalcification; 6-anterior tibial artery, following decalcification; 7-posterior tibial artery, following decalcification. 04/28/201704/28/2017
[2017-04-29 15:05] LABS: ANION GAP 11 (8-16); BLOOD UREA NITROGEN 70 mg/dL (7-18); CALCIUM 8.2 mg/dL (8.5-10.1); CHLORIDE 107 mmol/L (98-107); CO2 25 mmol/L (21-32); CREATININE 6.6 mg/dL (0.7-1.3); GLUCOSE,RANDOM 88 mg/dL (74-106); POTASSIUM 4.5 mmol/L (3.5-5.1); SODIUM 143 mmol/L (136-145)
--- NOTE | 2017-04-29 16:24 | PN ---
Progress Note (short form) - Note Progress Note: Vascular Surgery Pt seen and examined. Dressing changed. Left aka stump healing well. Bacitracin to staple line daily. Cleared to go to SNF. Followup in one week for staple removal in clinic. call for appt -- [phone] Faizan rosas DO
[2017-04-29] MEDS: BACITRACIN 15 GM TUBE TOPICAL OINTMENT TP SCH ×2 (17:44→21:42)
[2017-04-29] MEDS: COLLAGENASE CLOSTRIDIUM HIST. 30 GRAMS TUBE TP SCH (17:44)
[2017-04-29] MEDS: SODIUM CHLORIDE 1,000 ML IV SCH (21:41)
[2017-04-29] MEDS: ALPRAZolam 0.25 MG TABLET PO SCH (21:41)
[2017-04-29] MEDS: WARFARIN NA 5 MG TABLET (UD) PO SCH (21:41)
[2017-04-29] MEDS: DOCUSATE SODIUM 100 MG CAPSULE (FP) PO SCH (21:50)
[2017-04-29] MEDS: ROSUVASTATIN CA 20 MG TABLET (FP) PO SCH (21:50)
[2017-04-30] MEDS: HEPARIN INFUSION - 25,000 UNITS/500 ML INFUS.BAG IVPB SCH ×2 (02:00→06:07)
[2017-04-30 08:00] LABS: BASO % 0.4 % (0-2.0); EOS % 1.2 % (0-4.5); HEMATOCRIT 31.5 % (35.4-49); HEMOGLOBIN 10.1 GM/dL (11.7-16.9); LYMPH % 8.6 % (8-40); MCH 28.2 pg (25.7-33.7); MCHC 32.2 g/dl (32.0-35.9); MEAN CELL VOLUME 87.6 fl (80-96); MEAN PLT VOLUME 7.5 fl (7.5-11.1); MONO % 10.9 % (3.8-10.2); NEUT % 78.9 % (42.8-82.8); PLATELET COUNT 73 K/MM3 (134-434); RBC 3.59 M/mm3 (4.00-5.60); RDW 19.6 % (11.9-15.9); WHITE BLOOD COUNT 5.2 K/mm3 (4.0-10.0)
[2017-04-30 08:31] LABS: CHLORIDE 106 mmol/L (98-107); POTASSIUM 3.6 mmol/L (3.5-5.1); SODIUM 145 mmol/L (136-145)
[2017-04-30 08:35] LABS: INR 1.93 (0.82-1.09); PROTHROMBIN TIME (PATIENT) 21.8 SEC (9.98-11.88)
[2017-04-30 08:45] LABS: ALBUMIN 2.1 g/dl (3.4-5.0); ALK PHOS 106 U/L (45-117); ANION GAP 10 (8-16); BILIRUBIN,TOTAL 0.6 mg/dL (0.2-1.0); BLOOD UREA NITROGEN 41 mg/dL (7-18); CALCIUM 7.9 mg/dL (8.5-10.1); CO2 29 mmol/L (21-32); CREATININE 4.5 mg/dL (0.7-1.3); GLUCOSE,RANDOM 74 mg/dL (74-106); SGOT/AST 11 U/L (15-37); SGPT/ALT < 6 U/L (12-78); TOT PROT 4.9 g/dl (6.4-8.2)
[2017-04-30] MEDS: SUCRALFATE 1 GM/10 ML UNIT DOSE CUPS PO SCH ×2 (09:04→21:20)
[2017-04-30] MEDS: PANTOPRAZOLE 40 MG TABLET (FP) PO SCH (09:05)
[2017-04-30] MEDS: QUEtiapine FUMARATE 25 MG TABLET (FP) PO SCH ×2 (09:05→21:19)
[2017-04-30] MEDS: traMADol HCL 50 MG TABLET PO PRN (09:11)
[2017-04-30] MEDS: AMINO ACIDS/PROTEIN HYDROLYS 30 ML LIQUID.PKT PO SCH ×2 (09:13→16:59)
[2017-04-30] MEDS: BACITRACIN 15 GM TUBE TOPICAL OINTMENT TP SCH ×2 (09:13→21:19)
[2017-04-30] MEDS: CARVEDILOL 3.125 MG TABLET (FP) PO SCH ×2 (09:14→21:18)
[2017-04-30] MEDS: BUDESONIDE/FORMETEROL FUMARATE 80/4.5 mcg INHALER IH SCH ×2 (09:14→21:19)
[2017-04-30] MEDS: MIDODRINE HCL 5 MG TABLET PO SCH ×3 (09:14→18:23)
[2017-04-30] MEDS: GABAPENTIN 100 MG CAPSULE (FP) PO SCH ×2 (09:14→21:18)
--- NOTE | 2017-04-30 09:54 | PN ---
Progress Note (short form) - Note Progress Note: Renal Follow up for ESRD on HD Pt seen and examined at the bedside sleeping no overnight events Vital Signs Temperature 97.9 F 04/30/17 06:00 Pulse Rate 86 04/30/17 06:00 Respiratory Rate 20 04/30/17 06:00 Blood Pressure 101/54 04/30/17 06:00 O2 Sat by Pulse Oximetry (%) 95 04/29/17 21:00 Intake & Output 04/27/17 04/28/17 04/29/17 04/30/17 23:59 23:59 23:59 23:59 Intake Total 450 1914 60 434 Output Total 100 0 Balance 350 1914 60 434 NAD AKA dressing intact CBC, BMP 04/30/17 06:00 04/30/17 06:00 Current Medications Acetaminophen (Tylenol -) 650 mg PO Q6H PRN PRN Reason: FEVER OR PAIN Last Admin: 04/29/17 16:57 Dose: 650 mg Alprazolam (Xanax -) 0.25 mg PO HS [facility] Last Admin: 04/29/17 21:41 Dose: 0.25 mg Amino Acids (Prosource No Carb Liquid Pkt) 30 ml PO BID@0800,1730 [facility] Last Admin: 04/30/17 09:13 Dose: Not Given Bacitracin (Bacitracin -) 1 applic TP BID [facility] Last Admin: 04/30/17 09:13 Dose: 1 applic Budesonide/Formoterol Fumarate (Symbicort 80/4.5mcg -) 2 puff IH BID [facility] Last Admin: 04/30/17 09:14 Dose: 2 puff Carvedilol (Coreg -) 3.125 mg PO BID [facility] Last Admin: 04/30/17 09:14 Dose: 3.125 mg Collagenase (Santyl -) 1 applic TP DAILY [facility] Last Admin: 04/29/17 17:44 Dose: Not Given Docusate Sodium (Colace -) 300 mg PO HS [facility] Last Admin: 04/29/17 21:50 Dose: 300 mg Fentanyl (Sublimaze Injection -) 50 mcg IVPUSH [id number] PRN PRN Reason: PAIN Last Admin: 04/27/17 20:35 Dose: 50 mcg Gabapentin (Neurontin -) 100 mg PO BID [facility] Last Admin: 04/30/17 09:14 Dose: 100 mg Heparin Sodium (Porcine) (Heparin -) 1,000 unit IVPUSH PRN PRN PRN Reason: Heparin Last Admin: 04/29/17 15:40 Dose: 1,000 unit Heparin Sodium (Porcine) (Heparin -) 5,000 unit IVPUSH PRN PRN PRN Reason: Heparin Sodium Chloride (Normal Saline -) 1,000 mls @ 42 mls/hr IV ASDIR [facility] Last Admin: 04/29/17 21:41 Dose: 42 mls/hr Heparin Sodium/Dextrose (Heparin Infusion -) 25,000 units in 500 mls @ 16 mls/ hr IVPB TITR [facility]; 800 UNITS/HR PRN Reason: Protocol Last Admin: 04/30/17 06:07 Dose: 1,000 units/hr, 20 mls/hr Midodrine (Proamatine -) 10 mg PO TID-MID [facility] Last Admin: 04/30/17 09:14 Dose: 10 mg Morphine Sulfate (Morphine Sulfate) 2 mg IVPB Q4H PRN Ondansetron HCl (Zofran Injection) 4 mg IVPUSH Q6H PRN PRN Reason: NAUSEA AND/OR VOMITING Pantoprazole Sodium (Protonix -) 40 mg PO DAILY [facility] Last Admin: 04/30/17 09:05 Dose: 40 mg Quetiapine Fumarate (Seroquel -) 25 mg PO BID [facility] Last Admin: 04/30/17 09:05 Dose: 25 mg Rosuvastatin Calcium (Crestor -) 20 mg PO HS [facility] Last Admin: 04/29/17 21:50 Dose: 20 mg Sucralfate (Carafate Oral Suspension -) 0.5 gm PO BID [facility] Last Admin: 04/30/17 09:04 Dose: 0.5 gm Tramadol HCl (Ultram -) 50 mg PO Q6H PRN PRN Reason: PAIN Last Admin: 04/30/17 09:11 Dose: 50 mg Warfarin Sodium (Coumadin -) 5 mg PO DAILY@1800 [facility] Stop: 05/01/17 18:01 Last Admin: 04/29/17 21:41 Dose: 5 mg 77 year old gentleman with PMhx of ESRD on HD (started in [place]) Hypertension, DVT, PVD s/p right AKA s/p recent admission for [place] wound that required amputation now presents from [place] s/p fall. 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
--- NOTE | 2017-04-30 11:34 | PN ---
Progress Note, Physician History of Present Illness: patient continues to be stable off of abx has sarted to ahve some breakdown in the skin - Current Medication List Current Medications: Active Medications Acetaminophen (Tylenol -) 650 mg PO Q6H PRN PRN Reason: FEVER OR PAIN Last Admin: 04/29/17 16:57 Dose: 650 mg Alprazolam (Xanax -) 0.25 mg PO HS [facility] Last Admin: 04/29/17 21:41 Dose: 0.25 mg Amino Acids (Prosource No Carb Liquid Pkt) 30 ml PO BID@0800,1730 [facility] Last Admin: 04/30/17 09:13 Dose: Not Given Bacitracin (Bacitracin -) 1 applic TP BID [facility] Last Admin: 04/30/17 09:13 Dose: 1 applic Budesonide/Formoterol Fumarate (Symbicort 80/4.5mcg -) 2 puff IH BID [facility] Last Admin: 04/30/17 09:14 Dose: 2 puff Carvedilol (Coreg -) 3.125 mg PO BID [facility] Last Admin: 04/30/17 09:14 Dose: 3.125 mg Collagenase (Santyl -) 1 applic TP DAILY [facility] Last Admin: 04/29/17 17:44 Dose: Not Given Docusate Sodium (Colace -) 300 mg PO HS [facility] Last Admin: 04/29/17 21:50 Dose: 300 mg Fentanyl (Sublimaze Injection -) 50 mcg IVPUSH [id number] PRN PRN Reason: PAIN Last Admin: 04/27/17 20:35 Dose: 50 mcg Gabapentin (Neurontin -) 100 mg PO BID [facility] Last Admin: 04/30/17 09:14 Dose: 100 mg Heparin Sodium (Porcine) (Heparin -) 1,000 unit IVPUSH PRN PRN PRN Reason: Heparin Last Admin: 04/29/17 15:40 Dose: 1,000 unit Heparin Sodium (Porcine) (Heparin -) 5,000 unit IVPUSH PRN PRN PRN Reason: Heparin Sodium Chloride (Normal Saline -) 1,000 mls @ 42 mls/hr IV ASDIR [facility] Last Admin: 04/29/17 21:41 Dose: 42 mls/hr Heparin Sodium/Dextrose (Heparin Infusion -) 25,000 units in 500 mls @ 16 mls/ hr IVPB TITR [facility]; 800 UNITS/HR PRN Reason: Protocol Last Admin: 04/30/17 06:07 Dose: 1,000 units/hr, 20 mls/hr Midodrine (Proamatine -) 10 mg PO TID-MID [facility] Last Admin: 04/30/17 09:14 Dose: 10 mg Morphine Sulfate (Morphine Sulfate) 2 mg IVPB Q4H PRN Ondansetron HCl (Zofran Injection) 4 mg IVPUSH Q6H PRN PRN Reason: NAUSEA AND/OR VOMITING Pantoprazole Sodium (Protonix -) 40 mg PO DAILY [facility] Last Admin: 04/30/17 09:05 Dose: 40 mg Quetiapine Fumarate (Seroquel -) 25 mg PO BID [facility] Last Admin: 04/30/17 09:05 Dose: 25 mg Rosuvastatin Calcium (Crestor -) 20 mg PO HS [facility] Last Admin: 04/29/17 21:50 Dose: 20 mg Sucralfate (Carafate Oral Suspension -) 0.5 gm PO BID [facility] Last Admin: 04/30/17 09:04 Dose: 0.5 gm Tramadol HCl (Ultram -) 50 mg PO Q6H PRN PRN Reason: PAIN Last Admin: 04/30/17 09:11 Dose: 50 mg Warfarin Sodium (Coumadin -) 5 mg PO DAILY@1800 [facility] Stop: 05/01/17 18:01 Last Admin: 04/29/17 21:41 Dose: 5 mg - Objective Vital Signs: Vital Signs Temperature 97.3 F L 04/30/17 10:00 Pulse Rate 78 04/30/17 10:00 Respiratory Rate 20 04/30/17 10:00 Blood Pressure 99/50 04/30/17 10:00 O2 Sat by Pulse Oximetry (%) 95 04/29/17 21:00 Constitutional: Yes: No Distress, Anxious Eyes: Yes: Conjunctiva Clear Cardiovascular: Yes: Regular Rate and Rhythm Respiratory: Yes: Regular, CTA Bilaterally Gastrointestinal: Yes: Normal Bowel Sounds, Soft Musculoskeletal: Yes: Other Extremities: Yes: Other (amputaton site looks good) Neurological: Yes: Alert, Other Labs: CBC, BMP 04/30/17 06:00 04/30/17 06:00 INR, PTT INR 1.93 (0.82-1.09) H D 04/30/17 06:00 Assessment/Plan Problem List - Problems (1) ESRD (end stage renal disease) Code(s): N18.6 - END STAGE RENAL DISEASE (2) Atrial fibrillation Code(s): I48.91 - UNSPECIFIED ATRIAL FIBRILLATION Qualifiers: Atrial fibrillation type: persistent Qualified Code(s): I48.1 - Persistent atrial fibrillation (3) Critical lower limb ischemia Code(s): I99.8 - OTHER DISORDER OF CIRCULATORY SYSTEM (4) HLD (hyperlipidemia) Code(s): E78.5 - HYPERLIPIDEMIA, UNSPECIFIED Qualifiers: Hyperlipidemia type: pure hypercholesterolemia Qualified Code(s): E78.00 - Pure hypercholesterolemia, unspecified (5) HTN (hypertension) Code(s): I10 - ESSENTIAL (PRIMARY) HYPERTENSION Qualifiers: Hypertension type: essential hypertension Qualified Code(s): I10 - Essential (primary) hypertension (6) Open wnd foot-complicated Code(s): S91.309A - UNSPECIFIED OPEN WOUND, UNSPECIFIED FOOT, INITIAL ENCOUNTER (7) Peripheral arterial disease Code(s): I73.9 - PERIPHERAL VASCULAR DISEASE, UNSPECIFIED patient with aka plan continue to watch off of abx continue to monitor temp air mattress--will help skin break down rest continue as per primary team
[2017-04-30] MEDS: COLLAGENASE CLOSTRIDIUM HIST. 30 GRAMS TUBE TP SCH (13:42)
[2017-04-30] MEDS ORDERED: PT OWN MED DRAWER 7, Y5N ONE (13:51)
[2017-04-30] MEDS: morphine SULFATE 4 MG/ML VIAL IVPB PRN ×2 (13:58→23:00)
[2017-04-30] MEDS: WARFARIN NA 5 MG TABLET (UD) PO SCH (18:23)
--- NOTE | 2017-04-30 19:19 | PN ---
Progress Note (short form) - Note Progress Note: SUBJECTIVE: Patient seen and examined at the bedside, he is refusing to speak today Restarted on Coumadin yesterday evening, monitor INR Current Medications Generic Name Dose Route Start Last Admin Trade Name Antonieta PRN Reason Stop Dose Admin Acetaminophen 650 mg 04/27/17 21:08 04/29/17 16:57 Tylenol - PO 650 mg Q6H PRN Administration FEVER OR PAIN Alprazolam 0.25 mg 04/27/17 22:00 04/29/17 21:41 Xanax - PO 0.25 mg HS [facility] Administration Amino Acids 30 ml 04/28/17 08:00 04/30/17 16:59 Prosource No Carb Liquid Pkt PO Not Given BID@0800,1730 [facility] Bacitracin 1 applic 04/28/17 22:00 04/30/17 09:13 Bacitracin - TP 1 applic BID [facility] Administration Budesonide/Formoterol Fumarate 2 puff 04/27/17 22:00 04/30/17 09:14 Symbicort 80/4.5mcg - IH 2 puff BID [facility] Administration Carvedilol 3.125 mg 04/27/17 22:00 04/30/17 09:14 Coreg - PO 3.125 mg BID [facility] Administration Collagenase 1 applic 04/28/17 10:00 04/30/17 13:42 Santyl - TP Not Given DAILY [facility] Docusate Sodium 300 mg 04/27/17 22:00 04/29/17 21:50 Colace - PO 300 mg HS [facility] Administration Fentanyl 50 mcg 04/27/17 19:59 04/27/17 20:35 Sublimaze Injection - IVPUSH 50 mcg [id number] PRN Administration PAIN Gabapentin 100 mg 04/27/17 22:00 04/30/17 09:14 Neurontin - PO 100 mg BID [facility] Administration Heparin Sodium (Porcine) 1,000 unit 04/28/17 01:59 04/29/17 15:40 Heparin - IVPUSH 1,000 unit PRN PRN Administration Heparin Heparin Sodium (Porcine) 5,000 unit 04/28/17 01:59 Heparin - IVPUSH PRN PRN Heparin Sodium Chloride 1,000 mls @ 42 mls/hr 04/27/17 20:00 04/29/17 21:41 Normal Saline - IV 42 mls/hr ASDIR [facility] Administration Heparin Sodium/Dextrose 25,000 units in 500 mls @ 16 mls/hr 04/28/17 02:00 06:07 Heparin Infusion - IVPB 1,000 units/hr TITR [facility] 20 mls/hr Protocol Administration 800 UNITS/HR Midodrine 10 mg 04/28/17 10:00 04/30/17 18:23 Proamatine - PO 10 mg TID-MID [facility] Administration Morphine Sulfate 2 mg 04/29/17 18:52 04/30/17 13:58 Morphine Sulfate IVPB 2 mg Q4H PRN Administration Ondansetron HCl 4 mg 04/27/17 19:59 Zofran Injection IVPUSH Q6H PRN NAUSEA AND/OR VOMITING Pantoprazole Sodium 40 mg 04/30/17 10:00 04/30/17 09:05 Protonix - PO 40 mg DAILY [facility] Administration Quetiapine Fumarate 25 mg 04/27/17 22:00 04/30/17 09:05 Seroquel - PO 25 mg BID [facility] Administration Rosuvastatin Calcium 20 mg 04/27/17 22:00 04/29/17 21:50 Crestor - PO 20 mg HS [facility] Administration Sucralfate 0.5 gm 04/27/17 22:00 04/30/17 09:04 Carafate Oral Suspension - PO 0.5 gm BID [facility] Administration Tramadol HCl 50 mg 04/27/17 21:08 04/30/17 09:11 Ultram - PO 50 mg Q6H PRN Administration PAIN Warfarin Sodium 5 mg 04/29/17 19:00 04/30/17 18:23 Coumadin - PO 05/01/17 18:01 5 mg DAILY@1800 [facility] Administration OBJECTIVE: Vital Signs Period Temp Pulse Resp BP Sys/Coleman Pulse Ox Last 24 Hr 97.3 F-97.9 F 78-98 20-22 99-103/50-61 95-96 Physical Exam: Refused CBCD WBC 5.2 K/mm3 (4.0-10.0) 04/30/17 06:00 RBC 3.59 M/mm3 (4.00-5.60) L D 04/30/17 06:00 Hgb 10.1 GM/dL (11.7-16.9) L D 04/30/17 06:00 Hct 31.5 % (35.4-49) L D 04/30/17 06:00 MCV 87.6 fl (80-96) 04/30/17 06:00 MCHC 32.2 g/dl (32.0-35.9) 04/30/17 06:00 RDW 19.6 % (11.9-15.9) H 04/30/17 06:00 Plt Count 73 K/MM3 (134-434) L 04/30/17 06:00 MPV 7.5 fl (7.5-11.1) 04/30/17 06:00 CMP Sodium 145 mmol/L (136-145) 04/30/17 06:00 Potassium 3.6 mmol/L (3.5-5.1) 04/30/17 06:00 Chloride 106 mmol/L (98-107) 04/30/17 06:00 Carbon Dioxide 29 mmol/L (21-32) 04/30/17 06:00 Anion Gap 10 (8-16) 04/30/17 06:00 BUN 41 mg/dL (7-18) H D 04/30/17 06:00 Creatinine 4.5 mg/dL (0.7-1.3) H D 04/30/17 06:00 Creat Clearance w eGFR 12.81 (>60) 04/30/17 06:00 Random Glucose 74 mg/dL (74-106) 04/30/17 06:00 Calcium 7.9 mg/dL (8.5-10.1) L 04/30/17 06:00 Total Bilirubin 0.6 mg/dL (0.2-1.0) D 04/30/17 06:00 AST 11 U/L (15-37) L D 04/30/17 06:00 ALT < 6 U/L (12-78) L D 04/30/17 06:00 Alkaline Phosphatase 106 U/L (45-117) 04/30/17 06:00 Total Protein 4.9 g/dl (6.4-8.2) L 04/30/17 06:00 Albumin 2.1 g/dl (3.4-5.0) L 04/30/17 06:00 Assessment: 77 year old male with PMHx HTN, CAD, Afib, PVD, ESRD, anemia, COPD, GERD, anxiety, DVT, AAA-infrarenal, Hepatitis B, 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 Plan: 1. Anemia - H/H 10.1 today - S/p 2u PRBC with HD yesterday, and 1u PRBC on 04/28 - Stool for occult blood positive, restart Protonix - Appreciate GI consult for further recommendations 2. ESRD - HD M,W,F - HD per Renal service 3. L BKA/PVD - AKA 04/27/17 - Cont gabapentin for pain - Off all antibiotics - Pain management - Appreciate vascular surgery consult 4. HTN/HLD/CAD - Cont home crestor, coreg 5. s/p fall - Head CT negative - Fall precautions 6. Afib, rate controlled - Resumed on Heparin gtt - Restarted Coumadin yesterday, Monitor INR 7. Thrombocytopenia - present on previous admission, labile, monitor 8. GERD - Hold protonix, if symptoms arise restart ppi 9. DVT PPX - On Heparin gtt CODE STATUS: FULL CODE Visit type - Emergency Visit Emergency Visit: Yes ED Registration Date: 04/21/17 Care time: The patient presented to the Emergency Department on the above date and was hospitalized for further evaluation of their emergent condition. - New Patient This patient is new to me today: No - Critical Care Critical Care patient: No
[2017-04-30] MEDS: DOCUSATE SODIUM 100 MG CAPSULE (FP) PO SCH (21:18)
[2017-04-30] MEDS: ALPRAZolam 0.25 MG TABLET PO SCH (21:18)
[2017-04-30] MEDS: SODIUM CHLORIDE 1,000 ML IV SCH (21:19)
[2017-04-30] MEDS: ROSUVASTATIN CA 20 MG TABLET (FP) PO SCH (21:19)
[2017-05-01 06:40] LABS: SERUM IRON SATURATION 15 % (15-55); TOTAL IRON BINDING CAPACITY 140 ug/dL (250-450); UIBC 119 ug/dL (111-343)
[2017-05-01 08:00] LABS: HEMATOCRIT 30.7 % (35.4-49); HEMOGLOBIN 9.7 GM/dL (11.7-16.9); MCH 27.7 pg (25.7-33.7); MCHC 31.6 g/dl (32.0-35.9); MEAN CELL VOLUME 87.8 fl (80-96); MEAN PLT VOLUME 7.8 fl (7.5-11.1); PLATELET COUNT 75 K/MM3 (134-434); RDW 19.1 % (11.9-15.9); WHITE BLOOD COUNT 3.5 K/mm3 (4.0-10.0)
[2017-05-01] MEDS: AMINO ACIDS/PROTEIN HYDROLYS 30 ML LIQUID.PKT PO SCH ×2 (08:14→17:18)
[2017-05-01 08:35] LABS: PROTHROMBIN TIME (PATIENT) 22.6 SEC (9.98-11.88)
[2017-05-01] MEDS: BUDESONIDE/FORMETEROL FUMARATE 80/4.5 mcg INHALER IH SCH ×2 (10:30→21:40)
[2017-05-01] MEDS ORDERED: PT OWN MED DRAWER 7, Y5N ONE ×3 (10:37→17:08)
[2017-05-01] MEDS: BACITRACIN 15 GM TUBE TOPICAL OINTMENT TP SCH ×2 (10:38→21:41)
[2017-05-01] MEDS: GABAPENTIN 100 MG CAPSULE (FP) PO SCH ×2 (10:38→21:40)
[2017-05-01] MEDS: PANTOPRAZOLE 40 MG TABLET (FP) PO SCH (10:39)
[2017-05-01] MEDS: SUCRALFATE 1 GM/10 ML UNIT DOSE CUPS PO SCH ×2 (10:39→21:42)
[2017-05-01] MEDS: QUEtiapine FUMARATE 25 MG TABLET (FP) PO SCH ×2 (10:39→21:40)
[2017-05-01] MEDS: CARVEDILOL 3.125 MG TABLET (FP) PO SCH ×2 (10:39→21:39)
[2017-05-01] MEDS: MIDODRINE HCL 5 MG TABLET PO SCH ×3 (10:39→17:18)
[2017-05-01] MEDS: morphine SULFATE 4 MG/ML VIAL IVPB PRN ×3 (10:40→21:38)
[2017-05-01] MEDS ORDERED: WARFARIN NA 2 MG TABLET (UD) PO SCH (10:46)
--- NOTE | 2017-05-01 11:10 | PN ---
Progress Note, Physician History of Present Illness: stable no new issues - Current Medication List Current Medications: Active Medications Acetaminophen (Tylenol -) 650 mg PO Q6H PRN PRN Reason: FEVER OR PAIN Last Admin: 04/29/17 16:57 Dose: 650 mg Alprazolam (Xanax -) 0.25 mg PO HS [facility]END[facility] TO [facility] Last Admin: 04/30/17 21:18 Dose: 0.25 mg Amino Acids (Prosource No Carb Liquid Pkt) 30 ml PO BID@0800,1730 [facility] Last Admin: 05/01/17 08:14 Dose: 30 ml Bacitracin (Bacitracin -) 1 applic TP BID [facility] Last Admin: 05/01/17 10:38 Dose: 1 applic Budesonide/Formoterol Fumarate (Symbicort 80/4.5mcg -) 2 puff IH BID [facility] Last Admin: 04/30/17 21:19 Dose: Not Given Carvedilol (Coreg -) 3.125 mg PO BID [facility] Last Admin: 05/01/17 10:39 Dose: 3.125 mg Collagenase (Santyl -) 1 applic TP DAILY [facility] Last Admin: 04/30/17 13:42 Dose: Not Given Docusate Sodium (Colace -) 300 mg PO HS [facility] Last Admin: 04/30/17 21:18 Dose: 300 mg Fentanyl (Sublimaze Injection -) 50 mcg IVPUSH [id number] PRN PRN Reason: PAIN Last Admin: 04/27/17 20:35 Dose: 50 mcg Gabapentin (Neurontin -) 100 mg PO BID [facility] Last Admin: 05/01/17 10:38 Dose: 100 mg Sodium Chloride (Normal Saline -) 1,000 mls @ 42 mls/hr IV ASDIR [facility] Last Admin: 04/30/17 21:19 Dose: Not Given Midodrine (Proamatine -) 10 mg PO TID-MID [facility] Last Admin: 05/01/17 10:39 Dose: 10 mg Morphine Sulfate (Morphine Sulfate) 2 mg IVPB Q4H PRN Last Admin: 05/01/17 10:40 Dose: 2 mg Ondansetron HCl (Zofran Injection) 4 mg IVPUSH Q6H PRN PRN Reason: NAUSEA AND/OR VOMITING Pantoprazole Sodium (Protonix -) 40 mg PO DAILY [facility] Last Admin: 05/01/17 10:39 Dose: 40 mg Quetiapine Fumarate (Seroquel -) 25 mg PO BID [facility] Last Admin: 05/01/17 10:39 Dose: 25 mg Rosuvastatin Calcium (Crestor -) 20 mg PO HS [facility] Last Admin: 04/30/17 21:19 Dose: 20 mg Sucralfate (Carafate Oral Suspension -) 0.5 gm PO BID [facility] Last Admin: 05/01/17 10:39 Dose: 0.5 gm Warfarin Sodium (Coumadin -) 2 mg PO DAILY@1800 [facility] Stop: 05/01/17 18:01 - Objective Vital Signs: Vital Signs Temperature 97.5 F L 05/01/17 06:00 Pulse Rate 74 05/01/17 06:00 Respiratory Rate 20 05/01/17 06:00 Blood Pressure 90/54 05/01/17 06:00 O2 Sat by Pulse Oximetry (%) 96 04/30/17 21:00 Constitutional: Yes: No Distress, Anxious Cardiovascular: Yes: S1, S2 Respiratory: Yes: Regular, Poor Air Entry Gastrointestinal: Yes: Normal Bowel Sounds, Soft Musculoskeletal: Yes: Other Extremities: Yes: Other (amputation site looks good) Neurological: Yes: Other Labs: CBC, BMP 05/01/17 06:00 04/30/17 06:00 INR, PTT INR 2.00 (0.82-1.09) H 05/01/17 06:00 Assessment/Plan Problem List - Problems (1) ESRD (end stage renal disease) Code(s): N18.6 - END STAGE RENAL DISEASE (2) Atrial fibrillation Code(s): I48.91 - UNSPECIFIED ATRIAL FIBRILLATION Qualifiers: Atrial fibrillation type: persistent Qualified Code(s): I48.1 - Persistent atrial fibrillation (3) Critical lower limb ischemia Code(s): I99.8 - OTHER DISORDER OF CIRCULATORY SYSTEM (4) HLD (hyperlipidemia) Code(s): E78.5 - HYPERLIPIDEMIA, UNSPECIFIED Qualifiers: Hyperlipidemia type: pure hypercholesterolemia Qualified Code(s): E78.00 - Pure hypercholesterolemia, unspecified (5) HTN (hypertension) Code(s): I10 - ESSENTIAL (PRIMARY) HYPERTENSION Qualifiers: Hypertension type: essential hypertension Qualified Code(s): I10 - Essential (primary) hypertension (6) Open wnd foot-complicated Code(s): S91.309A - UNSPECIFIED OPEN WOUND, UNSPECIFIED FOOT, INITIAL ENCOUNTER (7) Peripheral arterial disease Code(s): I73.9 - PERIPHERAL VASCULAR DISEASE, UNSPECIFIED patient with aka plan continue to watch off of abx continue to monitor temp air mattress--will help skin break down rest continue as per primary team patient stable
--- NOTE | 2017-05-01 13:56 | PN ---
Progress Note (short form) - Note Progress Note: SUBJECTIVE: Patient seen and examined at the bedside, he appears comfortable at this time INR therapeutic today, will bring Coumadin level down to home dose of 2mg po qhs Current Medications Generic Name Dose Route Start Last Admin Trade Name Freq PRN Reason Stop Dose Admin Acetaminophen 650 mg 04/27/17 21:08 04/29/17 16:57 Tylenol - PO 650 mg Q6H PRN Administration FEVER OR PAIN Alprazolam 0.25 mg 04/27/17 22:00 04/30/17 21:18 Xanax - PO 0.25 mg HS OT[facility] Administration Amino Acids 30 ml 04/28/17 08:00 05/01/17 08:14 Prosource No Carb Liquid Pkt PO 30 ml BID@0800,1730 [facility] Administration Bacitracin 1 applic 04/28/17 22:00 05/01/17 10:38 Bacitracin - TP 1 applic BID [facility] Administration Budesonide/Formoterol Fumarate 2 puff 04/27/17 22:00 04/30/17 21:19 Symbicort 80/4.5mcg - IH Not Given BID OT[facility] Carvedilol 3.125 mg 04/27/17 22:00 05/01/17 10:39 Coreg - PO 3.125 mg BID [facility] Administration Collagenase 1 applic 04/28/17 10:00 04/30/17 13:42 Santyl - TP Not Given DAILY [facility] Docusate Sodium 300 mg 04/27/17 22:00 04/30/17 21:18 Colace - PO 300 mg HS [facility] Administration Fentanyl 50 mcg 04/27/17 19:59 04/27/17 20:35 Sublimaze Injection - IVPUSH 50 mcg [id number] PRN Administration PAIN Gabapentin 100 mg 04/27/17 22:00 05/01/17 10:38 Neurontin - PO 100 mg BID [facility] Administration Sodium Chloride 1,000 mls @ 42 mls/hr 04/27/17 20:00 04/30/17 21:19 Normal Saline - IV Not Given ASDIR [facility] Midodrine 10 mg 04/28/17 10:00 05/01/17 10:39 Proamatine - PO 10 mg TID-MID [facility] Administration Morphine Sulfate 2 mg 04/29/17 18:52 05/01/17 10:40 Morphine Sulfate IVPB 2 mg Q4H PRN Administration Ondansetron HCl 4 mg 04/27/17 19:59 Zofran Injection IVPUSH Q6H PRN NAUSEA AND/OR VOMITING Pantoprazole Sodium 40 mg 04/30/17 10:00 05/01/17 10:39 Protonix - PO 40 mg DAILY [facility] Administration Quetiapine Fumarate 25 mg 04/27/17 22:00 05/01/17 10:39 Seroquel - PO 25 mg BID [facility] Administration Rosuvastatin Calcium 20 mg 04/27/17 22:00 04/30/17 21:19 Crestor - PO 20 mg HS [facility] Administration Sucralfate 0.5 gm 04/27/17 22:00 05/01/17 10:39 Carafate Oral Suspension - PO 0.5 gm BID [facility] Administration Warfarin Sodium 2 mg 05/01/17 10:46 Coumadin - PO 05/01/17 18:01 DAILY@1800 [facility] OBJECTIVE: Vital Signs Period Temp Pulse Resp BP Sys/Coleman Pulse Ox Last 24 Hr 97.5 F-98.0 F 72-87 20-20 90-103/50-61 96 Physical Exam: Refused CBCD WBC 3.5 K/mm3 (4.0-10.0) L D 05/01/17 06:00 RBC 3.50 M/mm3 (4.00-5.60) L 05/01/17 06:00 Hgb 9.7 GM/dL (11.7-16.9) L 05/01/17 06:00 Hct 30.7 % (35.4-49) L 05/01/17 06:00 MCV 87.8 fl (80-96) 05/01/17 06:00 MCHC 31.6 g/dl (32.0-35.9) L 05/01/17 06:00 RDW 19.1 % (11.9-15.9) H 05/01/17 06:00 Plt Count 75 K/MM3 (134-434) L 05/01/17 06:00 MPV 7.8 fl (7.5-11.1) 05/01/17 06:00 CMP Sodium 145 mmol/L (136-145) 04/30/17 06:00 Potassium 3.6 mmol/L (3.5-5.1) 04/30/17 06:00 Chloride 106 mmol/L (98-107) 04/30/17 06:00 Carbon Dioxide 29 mmol/L (21-32) 04/30/17 06:00 Anion Gap 10 (8-16) 04/30/17 06:00 BUN 41 mg/dL (7-18) H D 04/30/17 06:00 Creatinine 4.5 mg/dL (0.7-1.3) H D 04/30/17 06:00 Creat Clearance w eGFR 12.81 (>60) 04/30/17 06:00 Random Glucose 74 mg/dL (74-106) 04/30/17 06:00 Calcium 7.9 mg/dL (8.5-10.1) L 04/30/17 06:00 Total Bilirubin 0.6 mg/dL (0.2-1.0) D 04/30/17 06:00 AST 11 U/L (15-37) L D 04/30/17 06:00 ALT < 6 U/L (12-78) L D 04/30/17 06:00 Alkaline Phosphatase 106 U/L (45-117) 04/30/17 06:00 Total Protein 4.9 g/dl (6.4-8.2) L 04/30/17 06:00 Albumin 2.1 g/dl (3.4-5.0) L 04/30/17 06:00 Assessment: 77 year old male with PMHx HTN, CAD, Afib, PVD, ESRD, anemia, COPD, GERD, anxiety, DVT, AAA-infrarenal, Hepatitis B, L BKA 02/28/17 presented to the ED from [place] s/p Fall. Plan: 1. Anemia - H/H 9.7 - S/p 2u PRBC with HD on 04/29, and 1u PRBC on 04/28 - Stool for occult blood positive, continue Protonix - Appreciate GI consult: no need for urgent EGD/colonoscopy now 2. ESRD - HD M,W,F - HD per Renal service 3. L BKA/PVD - AKA 04/27/17 - Cont gabapentin for pain - Off all antibiotics - Pain management - Appreciate vascular surgery consult 4. HTN/HLD/CAD - Cont home crestor, coreg 5. s/p fall - Head CT negative - Fall precautions 6. Afib, rate controlled - Continue Coumadin per INR 7. Thrombocytopenia - present on previous admission, labile, monitor 8. GERD - Restart protonix 9. DVT PPX - On Coumadin, INR therapeutic 10. Dispo: - Will need discharge to SNF CODE STATUS: FULL CODE Visit type - Emergency Visit Emergency Visit: Yes ED Registration Date: 04/21/17 Care time: The patient presented to the Emergency Department on the above date and was hospitalized for further evaluation of their emergent condition. - New Patient This patient is new to me today: No - Critical Care Critical Care patient: No
[2017-05-01] MEDS: COLLAGENASE CLOSTRIDIUM HIST. 30 GRAMS TUBE TP SCH (17:17)
[2017-05-01] MEDS: SODIUM CHLORIDE 1,000 ML IV SCH (21:37)
[2017-05-01] MEDS: DOCUSATE SODIUM 100 MG CAPSULE (FP) PO SCH (21:39)
[2017-05-01] MEDS: ROSUVASTATIN CA 20 MG TABLET (FP) PO SCH (21:40)
[2017-05-01] MEDS: ALPRAZolam 0.25 MG TABLET PO SCH (21:41)
[2017-05-02] MEDS: AMINO ACIDS/PROTEIN HYDROLYS 30 ML LIQUID.PKT PO SCH ×2 (08:30→18:35)
[2017-05-02] MEDS: BACITRACIN 15 GM TUBE TOPICAL OINTMENT TP SCH ×2 (09:36→22:05)
[2017-05-02] MEDS: CARVEDILOL 3.125 MG TABLET (FP) PO SCH ×2 (09:56→22:05)
[2017-05-02] MEDS: SUCRALFATE 1 GM/10 ML UNIT DOSE CUPS PO SCH ×2 (09:56→22:10)
[2017-05-02] MEDS: MIDODRINE HCL 5 MG TABLET PO SCH ×3 (09:56→18:25)
[2017-05-02] MEDS: FERROUS SO4 325 MG TABLET (FP) PO SCH (09:56)
[2017-05-02] MEDS: GABAPENTIN 100 MG CAPSULE (FP) PO SCH ×2 (09:56→22:05)
[2017-05-02] MEDS: PANTOPRAZOLE 40 MG TABLET (FP) PO SCH (09:56)
[2017-05-02] MEDS: COLLAGENASE CLOSTRIDIUM HIST. 30 GRAMS TUBE TP SCH (10:06)
[2017-05-02] MEDS: BUDESONIDE/FORMETEROL FUMARATE 80/4.5 mcg INHALER IH SCH ×2 (10:07→22:06)
[2017-05-02] MEDS: QUEtiapine FUMARATE 25 MG TABLET (FP) PO SCH ×2 (11:06→22:05)
[2017-05-02] MEDS: morphine SULFATE 4 MG/ML VIAL IVPB PRN (12:12)
--- NOTE | 2017-05-02 13:10 | PN ---
Progress Note, Physician History of Present Illness: patient with no new issues remaining stable no new issues - Current Medication List Current Medications: Active Medications Acetaminophen (Tylenol -) 650 mg PO Q6H PRN PRN Reason: FEVER OR PAIN Last Admin: 04/29/17 16:57 Dose: 650 mg Alprazolam (Xanax -) 0.25 mg PO HS [facility] Last Admin: 05/01/17 21:41 Dose: 0.25 mg Amino Acids (Prosource No Carb Liquid Pkt) 30 ml PO BID@0800,1730 [facility] Last Admin: 05/01/17 17:18 Dose: 30 ml Bacitracin (Bacitracin -) 1 applic TP BID [facility] Last Admin: 05/01/17 21:41 Dose: 1 applic Budesonide/Formoterol Fumarate (Symbicort 80/4.5mcg -) 2 puff IH BID [facility] Last Admin: 05/02/17 10:07 Dose: Not Given Carvedilol (Coreg -) 3.125 mg PO BID [facility] Last Admin: 05/02/17 09:56 Dose: 3.125 mg Collagenase (Santyl -) 1 applic TP DAILY [facility] Last Admin: 05/02/17 10:06 Dose: Not Given Docusate Sodium (Colace -) 300 mg PO HS [facility] Last Admin: 05/01/17 21:39 Dose: 300 mg Epoetin Nash (Procrit -) 10,000 unit IVPUSH ONCE ONE Stop: 05/02/17 16:01 Fentanyl (Sublimaze Injection -) 50 mcg IVPUSH [id number] PRN PRN Reason: PAIN Last Admin: 04/27/17 20:35 Dose: 50 mcg Ferrous Sulfate (Feosol -) 325 mg PO DAILY [facility] Last Admin: 05/02/17 09:56 Dose: 325 mg Gabapentin (Neurontin -) 100 mg PO BID [facility] Last Admin: 05/02/17 09:56 Dose: 100 mg Sodium Chloride (Normal Saline -) 1,000 mls @ 42 mls/hr IV ASDIR [facility] Last Admin: 05/01/17 21:37 Dose: 42 mls/hr Midodrine (Proamatine -) 10 mg PO TID-MID [facility] Last Admin: 05/02/17 09:56 Dose: 10 mg Morphine Sulfate (Morphine Sulfate) 2 mg IVPB Q4H PRN Last Admin: 05/02/17 12:12 Dose: 2 mg Ondansetron HCl (Zofran Injection) 4 mg IVPUSH Q6H PRN PRN Reason: NAUSEA AND/OR VOMITING Pantoprazole Sodium (Protonix -) 40 mg PO DAILY [facility] Last Admin: 05/02/17 09:56 Dose: 40 mg Quetiapine Fumarate (Seroquel -) 25 mg PO BID [facility] Last Admin: 05/02/17 11:06 Dose: 25 mg Rosuvastatin Calcium (Crestor -) 20 mg PO HS [facility] Last Admin: 05/01/17 21:40 Dose: 20 mg Sucralfate (Carafate Oral Suspension -) 0.5 gm PO BID [facility] Last Admin: 05/02/17 09:56 Dose: 0.5 gm - Objective Vital Signs: Vital Signs Temperature 98 F 05/02/17 05:00 Pulse Rate 82 05/02/17 05:00 Respiratory Rate 20 05/02/17 05:00 Blood Pressure 101/59 05/02/17 05:00 O2 Sat by Pulse Oximetry (%) 96 05/01/17 21:00 Constitutional: Yes: No Distress, Anxious, Other Cardiovascular: Yes: Regular Rate and Rhythm Respiratory: Yes: Regular, CTA Bilaterally Gastrointestinal: Yes: Normal Bowel Sounds, Soft Musculoskeletal: Yes: Other Extremities: Yes: Other Neurological: Yes: Alert, Other Labs: CBC, BMP 05/01/17 06:00 04/30/17 06:00 INR, PTT INR 2.00 (0.82-1.09) H 05/01/17 06:00 Assessment/Plan Problem List - Problems (1) ESRD (end stage renal disease) Code(s): N18.6 - END STAGE RENAL DISEASE (2) Atrial fibrillation Code(s): I48.91 - UNSPECIFIED ATRIAL FIBRILLATION Qualifiers: Atrial fibrillation type: persistent Qualified Code(s): I48.1 - Persistent atrial fibrillation (3) Critical lower limb ischemia Code(s): I99.8 - OTHER DISORDER OF CIRCULATORY SYSTEM (4) HLD (hyperlipidemia) Code(s): E78.5 - HYPERLIPIDEMIA, UNSPECIFIED Qualifiers: Hyperlipidemia type: pure hypercholesterolemia Qualified Code(s): E78.00 - Pure hypercholesterolemia, unspecified (5) HTN (hypertension) Code(s): I10 - ESSENTIAL (PRIMARY) HYPERTENSION Qualifiers: Hypertension type: essential hypertension Qualified Code(s): I10 - Essential (primary) hypertension (6) Open wnd foot-complicated Code(s): S91.309A - UNSPECIFIED OPEN WOUND, UNSPECIFIED FOOT, INITIAL ENCOUNTER (7) Peripheral arterial disease Code(s): I73.9 - PERIPHERAL VASCULAR DISEASE, UNSPECIFIED patient with aka plan continues to remain stable continue to monitor temp monitor skin issues rest as per primary
[2017-05-02] MEDS: ACETAMINOPHEN 325 MG TABLET (FP) PO PRN ×2 (13:42→22:03)
[2017-05-02 14:47] LABS: BASO % 1.2 % (0-2.0); EOS % 5.7 % (0-4.5); HEMATOCRIT 30.7 % (35.4-49); HEMOGLOBIN 9.5 GM/dL (11.7-16.9); MCH 27.2 pg (25.7-33.7); MEAN CELL VOLUME 87.6 fl (80-96); MEAN PLT VOLUME 7.5 fl (7.5-11.1); MONO % 12.2 % (3.8-10.2); NEUT % 68.9 % (42.8-82.8); PLATELET COUNT 82 K/MM3 (134-434); RBC 3.51 M/mm3 (4.00-5.60); RDW 18.7 % (11.9-15.9); WHITE BLOOD COUNT 3.8 K/mm3 (4.0-10.0)
[2017-05-02 15:11] LABS: ALBUMIN 1.9 g/dl (3.4-5.0); ANION GAP 13 (8-16); BLOOD UREA NITROGEN 61 mg/dL (7-18); CALCIUM 7.8 mg/dL (8.5-10.1); CHLORIDE 108 mmol/L (98-107); CO2 24 mmol/L (21-32); CREATININE 6.3 mg/dL (0.7-1.3); GLUCOSE,RANDOM 79 mg/dL (74-106); POTASSIUM 4.2 mmol/L (3.5-5.1); SGOT/AST 35 U/L (15-37); SGPT/ALT 13 U/L (12-78); SODIUM 145 mmol/L (136-145)
[2017-05-02 15:12] LABS: ALK PHOS 547 U/L (45-117); BILIRUBIN,TOTAL 0.7 mg/dL (0.2-1.0); TOT PROT 4.4 g/dl (6.4-8.2)
[2017-05-02 15:25] LABS: PROTHROMBIN TIME (PATIENT) 48.9 SEC (9.98-11.88)
[2017-05-02 15:26] LABS: INR 4.33 (0.82-1.09)
[2017-05-02] MEDS ORDERED: EPOETIN ALFA 10,000 UNIT/1 ML VIAL IVPUSH ONE (15:30)
--- NOTE | 2017-05-02 15:57 | PN ---
Progress Note (short form) - Note Progress Note: Renal Follow up for ESRD on HD Pt seen and examined at the bedside no overnight events for dialysis today Vital Signs Temperature 98.8 F 05/02/17 14:10 Pulse Rate 85 05/02/17 15:45 Respiratory Rate 18 05/02/17 15:45 Blood Pressure 87/53 05/02/17 15:45 O2 Sat by Pulse Oximetry (%) 96 05/02/17 09:00 Intake & Output 04/29/17 04/30/17 05/01/17 05/02/17 23:59 23:59 23:59 23:59 Intake Total 60 1454 2092 660 Balance 60 1454 2092 660 NAD AKA, suture line looks intact, no redness, discharge CBC, BMP 05/02/17 14:15 05/02/17 14:15 Current Medications Acetaminophen (Tylenol -) 650 mg PO Q6H PRN PRN Reason: FEVER OR PAIN Last Admin: 05/02/17 13:42 Dose: 650 mg Alprazolam (Xanax -) 0.25 mg PO HS [facility] Last Admin: 05/01/17 21:41 Dose: 0.25 mg Amino Acids (Prosource No Carb Liquid Pkt) 30 ml PO BID@0800,1730 [facility] Last Admin: 05/02/17 08:30 Dose: Not Given Bacitracin (Bacitracin -) 1 applic TP BID [facility] Last Admin: 05/01/17 21:41 Dose: 1 applic Budesonide/Formoterol Fumarate (Symbicort 80/4.5mcg -) 2 puff IH BID [facility] Last Admin: 05/02/17 10:07 Dose: Not Given Carvedilol (Coreg -) 3.125 mg PO BID [facility] Last Admin: 05/02/17 09:56 Dose: 3.125 mg Collagenase (Santyl -) 1 applic TP DAILY [facility] Last Admin: 05/02/17 10:06 Dose: Not Given Docusate Sodium (Colace -) 300 mg PO HS [facility] Last Admin: 05/01/17 21:39 Dose: 300 mg Fentanyl (Sublimaze Injection -) 50 mcg IVPUSH [id number] PRN PRN Reason: PAIN Last Admin: 04/27/17 20:35 Dose: 50 mcg Ferrous Sulfate (Feosol -) 325 mg PO DAILY [facility] Last Admin: 05/02/17 09:56 Dose: 325 mg Gabapentin (Neurontin -) 100 mg PO BID [facility] Last Admin: 05/02/17 09:56 Dose: 100 mg Sodium Chloride (Normal Saline -) 1,000 mls @ 42 mls/hr IV ASDIR ON [facility] Last Admin: 05/01/17 21:37 Dose: 42 mls/hr Midodrine (Proamatine -) 10 mg PO TID-MID [facility] Last Admin: 05/02/17 13:43 Dose: 10 mg Morphine Sulfate (Morphine Sulfate) 2 mg IVPB Q4H PRN Last Admin: 05/02/17 12:12 Dose: 2 mg Ondansetron HCl (Zofran Injection) 4 mg IVPUSH Q6H PRN PRN Reason: NAUSEA AND/OR VOMITING Pantoprazole Sodium (Protonix -) 40 mg PO DAILY [facility] Last Admin: 05/02/17 09:56 Dose: 40 mg Quetiapine Fumarate (Seroquel -) 25 mg PO BID [facility] Last Admin: 05/02/17 11:06 Dose: 25 mg Rosuvastatin Calcium (Crestor -) 20 mg PO HS [facility] Last Admin: 05/01/17 21:40 Dose: 20 mg Sucralfate (Carafate Oral Suspension -) 0.5 gm PO BID [facility] Last Admin: 05/02/17 09:56 Dose: 0.5 gm 77 year old gentleman with PMhx of ESRD on HD (started in [place]) Hypertension, DVT, PVD s/p right AKA s/p recent admission for [place] wound that required amputation now presents from [place] s/p fall. #ESRD on HD for HD today UF as tolerated dose all meds for intermittent HD #PVD s/p BKA s/p AKA wound care pain control vascular follow up #Anemia in CKD Hgb with good response s/p transfusion continue IVANIA with HD Raghu Boogie DO
[2017-05-02 16:54] LABS: PROTHROMBIN TIME (PATIENT) 51.3 SEC (9.98-11.88)
[2017-05-02 17:07] LABS: INR 4.54 (0.82-1.09)
--- NOTE | 2017-05-02 19:11 | PN ---
Physical Exam: SUBJECTIVE: Patient seen and examined in dialysis unit. OBJECTIVE: Vital Signs Period Temp Pulse Resp BP Sys/Coleman Pulse Ox Last 24 Hr 98 F-98.9 F 73-95 18-20 84-124/47-85 96-96 GENERAL: The patient is awake, alert, tolerating HD LUNGS: CTA CV: RRR, S1, S2 EXTREMITIES: bilateral AKA; left stump with surgical stapes, wound looks clearn , edges well-approximated, no erythema, no sign of infection; right stump with old scabs NEUROLOGICAL: Cranial nerves II through XII grossly intact. Normal speech Laboratory Results - last 24 hr 04/26/17 05/02/17 05/02/17 12:40 14:15 14:15 WBC 3.8 L RBC 3.51 L Hgb 9.5 L Hct 30.7 L MCV 87.6 MCH 27.2 MCHC 31.0 L RDW 18.7 H Plt Count 82 L MPV 7.5 Neutrophils % 68.9 Lymphocytes % 12.0 D Monocytes % 12.2 H Eosinophils % 5.7 H D Basophils % 1.2 PT with INR INR PTT (Actin FS) 54.1 H Sodium Potassium Chloride Carbon Dioxide Anion Gap BUN Creatinine Creat Clearance w eGFR Random Glucose Calcium Total Bilirubin AST ALT Alkaline Phosphatase Total Protein Albumin Blood Type O POSITIVE Antibody Screen Negative Crossmatch See Detail 05/02/17 05/02/17 05/02/17 14:15 14:15 16:00 WBC RBC Hgb Hct MCV MCH MCHC RDW Plt Count MPV Neutrophils % Lymphocytes % Monocytes % Eosinophils % Basophils % PT with INR 48.90 H 51.30 H INR 4.33 H* D 4.54 H* PTT (Actin FS) Sodium 145 Potassium 4.2 Chloride 108 H Carbon Dioxide 24 Anion Gap 13 BUN 61 H D Creatinine 6.3 H D Creat Clearance w eGFR 8.69 Random Glucose 79 Calcium 7.8 L Total Bilirubin 0.7 AST 35 D ALT 13 D Alkaline Phosphatase 547 H D Total Protein 4.4 L Albumin 1.9 L Blood Type Antibody Screen Crossmatch Active Medications Generic Name Dose Route Start Last Admin Trade Name Freq PRN Reason Stop Dose Admin Acetaminophen 650 mg 04/27/17 21:08 05/02/17 13:42 Tylenol - PO 650 mg Q6H PRN Administration FEVER OR PAIN Alprazolam 0.25 mg 04/27/17 22:00 05/01/17 21:41 Xanax - PO 0.25 mg HS [facility] Administration Amino Acids 30 ml 04/28/17 08:00 05/02/17 18:35 Prosource No Carb Liquid Pkt PO Not Given BID@0800,1730 [facility] Bacitracin 1 applic 04/28/17 22:00 05/02/17 09:36 Bacitracin - TP 1 applic BID [facility] Administration Budesonide/Formoterol Fumarate 2 puff 04/27/17 22:00 05/02/17 10:07 Symbicort 80/4.5mcg - IH Not Given BID [facility] Carvedilol 3.125 mg 04/27/17 22:00 05/02/17 09:56 Coreg - PO 3.125 mg BID [facility] Administration Collagenase 1 applic 04/28/17 10:00 05/02/17 10:06 Santyl - TP Not Given DAILY [facility] Docusate Sodium 300 mg 04/27/17 22:00 05/01/17 21:39 Colace - PO 300 mg HS [facility] Administration Fentanyl 50 mcg 04/27/17 19:59 04/27/17 20:35 Sublimaze Injection - IVPUSH 50 mcg [id number] PRN Administration PAIN Ferrous Sulfate 325 mg 05/02/17 10:00 05/02/17 09:56 Feosol - PO 325 mg DAILY [facility] Administration Gabapentin 100 mg 04/27/17 22:00 05/02/17 09:56 Neurontin - PO 100 mg BID [facility] Administration Sodium Chloride 1,000 mls @ 42 mls/hr 04/27/17 20:00 05/01/17 21:37 Normal Saline - IV 42 mls/hr ASDIR [facility] Administration Midodrine 10 mg 04/28/17 10:00 05/02/17 18:25 Proamatine - PO 10 mg TID-MID [facility] Administration Ondansetron HCl 4 mg 04/27/17 19:59 Zofran Injection IVPUSH Q6H PRN NAUSEA AND/OR VOMITING Pantoprazole Sodium 40 mg 04/30/17 10:00 05/02/17 09:56 Protonix - PO 40 mg DAILY [facility] Administration Quetiapine Fumarate 25 mg 04/27/17 22:00 05/02/17 11:06 Seroquel - PO 25 mg BID [facility] Administration Rosuvastatin Calcium 20 mg 04/27/17 22:00 05/01/17 21:40 Crestor - PO 20 mg HS [facility] Administration Sucralfate 0.5 gm 04/27/17 22:00 05/02/17 09:56 Carafate Oral Suspension - PO 0.5 gm BID [facility] Administration ASSESSMENT/PLAN: 77 year-old male with PMH significant for HTN, CAD, Afib, PVD, ESRD, anemia, COPD, GERD, anxiety, DVT, AAA-infrarenal, Hepatitis B, 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 Plan: 1. Anemia - H/H 9.7 - S/p 2u PRBC with HD on 04/29, and 1u PRBC on 04/28 - Stool for occult blood positive, continue Protonix - Appreciate GI consult: no need for urgent EGD/colonoscopy now 2. ESRD - HD M,W,F - HD per Renal service 3. L BKA/PVD - AKA 04/27/17 - Cont gabapentin for pain - Off all antibiotics - Pain management - Appreciate vascular surgery consult 4. HTN/HLD/CAD - Cont home crestor, coreg 5. s/p fall - Head CT negative - Fall precautions 6. Afib, rate controlled - INR supratherapeutic but drawn off dialysis, repeat from different site 7. Thrombocytopenia - present on previous admission, labile, monitor 8. GERD - Restart protonix 9. DVT PPX - On Coumadin, INR therapeutic 10. Dispo: - Will need discharge to SNF CODE STATUS: FULL CODE Visit type - Emergency Visit Emergency Visit: Yes ED Registration Date: 04/21/17 Care time: The patient presented to the Emergency Department on the above date and was hospitalized for further evaluation of their emergent condition. - New Patient This patient is new to me today: Yes Date on this admission: 05/05/17 - Critical Care Critical Care patient: No
[2017-05-02] MEDS: ROSUVASTATIN CA 20 MG TABLET (FP) PO SCH (22:04)
[2017-05-02] MEDS: DOCUSATE SODIUM 100 MG CAPSULE (FP) PO SCH (22:04)
[2017-05-02] MEDS: ALPRAZolam 0.25 MG TABLET PO SCH (22:05)
[2017-05-03 07:35] LABS: HEMATOCRIT 33.4 % (35.4-49); HEMOGLOBIN 10.4 GM/dL (11.7-16.9); MCH 27.6 pg (25.7-33.7); MCHC 31.1 g/dl (32.0-35.9); MEAN CELL VOLUME 88.8 fl (80-96); MEAN PLT VOLUME 7.8 fl (7.5-11.1); PLATELET COUNT 75 K/MM3 (134-434); RBC 3.76 M/mm3 (4.00-5.60); RDW 18.8 % (11.9-15.9); WHITE BLOOD COUNT 3.6 K/mm3 (4.0-10.0)
[2017-05-03 08:00] LABS: PROTHROMBIN TIME (PATIENT) 58.6 SEC (9.98-11.88)
[2017-05-03 08:15] LABS: INR 5.19 (0.82-1.09)
[2017-05-03] MEDS ORDERED: PT OWN MED DRAWER 7, Y5N ONE (09:32)
[2017-05-03] MEDS: ACETAMINOPHEN 325 MG TABLET (FP) PO PRN (09:35)
[2017-05-03] MEDS: PANTOPRAZOLE 40 MG TABLET (FP) PO SCH (09:36)
[2017-05-03] MEDS: QUEtiapine FUMARATE 25 MG TABLET (FP) PO SCH ×2 (09:36→21:39)
[2017-05-03] MEDS: FERROUS SO4 325 MG TABLET (FP) PO SCH (09:36)
[2017-05-03] MEDS: CARVEDILOL 3.125 MG TABLET (FP) PO SCH ×2 (09:36→21:38)
[2017-05-03] MEDS: GABAPENTIN 100 MG CAPSULE (FP) PO SCH ×2 (09:36→21:39)
[2017-05-03] MEDS: AMINO ACIDS/PROTEIN HYDROLYS 30 ML LIQUID.PKT PO SCH (09:37)
[2017-05-03] MEDS: MIDODRINE HCL 5 MG TABLET PO SCH ×3 (09:37→18:15)
[2017-05-03] MEDS: SUCRALFATE 1 GM/10 ML UNIT DOSE CUPS PO SCH ×2 (09:37→21:37)
[2017-05-03] MEDS: morphine SULFATE 4 MG/ML VIAL IVPUSH PRN (10:54)
[2017-05-03] MEDS: BACITRACIN 15 GM TUBE TOPICAL OINTMENT TP SCH ×2 (10:55→21:37)
--- NOTE | 2017-05-03 12:18 | PN ---
Progress Note (short form) - Note Progress Note: Renal Follow up for ESRD on HD Pt seen and examined at the bedside awake and alert appears somewhat confused no overnight events INR elevated s/p dialysis yesterday Vital Signs Temperature 98.3 F 05/03/17 10:00 Pulse Rate 81 05/03/17 10:00 Respiratory Rate 20 05/03/17 10:00 Blood Pressure 107/59 05/03/17 10:00 O2 Sat by Pulse Oximetry (%) 94 L 05/03/17 09:00 Intake & Output 04/30/17 05/01/17 05/02/17 05/03/17 23:59 23:59 23:59 23:59 Intake Total 1454 2092 1012 100 Balance 1454 2092 1012 100 NAD right LE AKA, dressing in tact CBC, BMP 05/03/17 06:00 05/02/17 14:15 Current Medications Acetaminophen (Tylenol -) 650 mg PO Q6H PRN PRN Reason: FEVER OR PAIN Last Admin: 05/03/17 09:35 Dose: 650 mg Alprazolam (Xanax -) 0.25 mg PO HS [facility] Last Admin: 05/02/17 22:05 Dose: 0.25 mg Amino Acids (Prosource No Carb Liquid Pkt) 30 ml PO BID@0800,1730 [facility] Last Admin: 05/03/17 09:37 Dose: 30 ml Bacitracin (Bacitracin -) 1 applic TP BID [facility] Last Admin: 05/02/17 22:05 Dose: 1 applic Budesonide/Formoterol Fumarate (Symbicort 80/4.5mcg -) 2 puff IH BID [facility] Last Admin: 05/02/17 22:06 Dose: Not Given Carvedilol (Coreg -) 3.125 mg PO BID [facility] Last Admin: 05/03/17 09:36 Dose: 3.125 mg Collagenase (Santyl -) 1 applic TP DAILY [facility] Last Admin: 05/02/17 10:06 Dose: Not Given Docusate Sodium (Colace -) 300 mg PO HS [facility] Last Admin: 05/02/17 22:04 Dose: 300 mg Fentanyl (Sublimaze Injection -) 50 mcg IVPUSH [id number] PRN PRN Reason: PAIN Last Admin: 04/27/17 20:35 Dose: 50 mcg Ferrous Sulfate (Feosol -) 325 mg PO DAILY [facility] Last Admin: 05/03/17 09:36 Dose: 325 mg Gabapentin (Neurontin -) 100 mg PO BID [facility] Last Admin: 05/03/17 09:36 Dose: 100 mg Sodium Chloride (Normal Saline -) 1,000 mls @ 42 mls/hr IV ASDIR [facility] Last Admin: 05/01/17 21:37 Dose: 42 mls/hr Midodrine (Proamatine -) 10 mg PO TID-MID [facility] Last Admin: 05/03/17 09:37 Dose: 10 mg Morphine Sulfate (Morphine Sulfate) 2 mg IVPUSH Q4H PRN PRN Reason: PAIN Last Admin: 05/03/17 10:54 Dose: 2 mg Ondansetron HCl (Zofran Injection) 4 mg IVPUSH Q6H PRN PRN Reason: NAUSEA AND/OR VOMITING Pantoprazole Sodium (Protonix -) 40 mg PO DAILY [facility] Last Admin: 05/03/17 09:36 Dose: 40 mg Quetiapine Fumarate (Seroquel -) 25 mg PO BID [facility] Last Admin: 05/03/17 09:36 Dose: 25 mg Rosuvastatin Calcium (Crestor -) 20 mg PO HS [facility] Last Admin: 05/02/17 22:04 Dose: 20 mg Sucralfate (Carafate Oral Suspension -) 0.5 gm PO BID [facility] Last Admin: 05/03/17 09:37 Dose: 0.5 gm 77 year old gentleman with PMhx of ESRD on HD (started in [place]) Hypertension, DVT, PVD s/p right AKA s/p recent admission for [place] wound that required amputation now presents from [place] s/p fall. #ESRD on HD s/p dialysis yesterday no acute indication for [employer]ER today will continue dialysis 3x weekly while inpatient #PVD s/p BKA s/p AKA wound care pain control vascular follow up #Anemia in CKD Hgb with good response s/p transfusion continue [facility] with HD Raghu Boogie DO
--- NOTE | 2017-05-03 13:49 | PN ---
Progress Note, Physician History of Present Illness: no new events confusion which is base line no events dialysis yesterday - Current Medication List Current Medications: Active Medications Acetaminophen (Tylenol -) 650 mg PO Q6H PRN PRN Reason: FEVER OR PAIN Last Admin: 05/03/17 09:35 Dose: 650 mg Alprazolam (Xanax -) 0.25 mg PO HS [facility] Last Admin: 05/02/17 22:05 Dose: 0.25 mg Amino Acids (Prosource No Carb Liquid Pkt) 30 ml PO BID@0800,1730 [facility] Last Admin: 05/03/17 09:37 Dose: 30 ml Bacitracin (Bacitracin -) 1 applic TP BID [facility] Last Admin: 05/02/17 22:05 Dose: 1 applic Budesonide/Formoterol Fumarate (Symbicort 80/4.5mcg -) 2 puff IH BID [facility] Last Admin: 05/02/17 22:06 Dose: Not Given Carvedilol (Coreg -) 3.125 mg PO BID [facility] Last Admin: 05/03/17 09:36 Dose: 3.125 mg Collagenase (Santyl -) 1 applic TP DAILY [facility] Last Admin: 05/02/17 10:06 Dose: Not Given Docusate Sodium (Colace -) 300 mg PO HS [facility] Last Admin: 05/02/17 22:04 Dose: 300 mg Epoetin Nash (Epogen -) 10,000 units IVPUSH ONCE ONE Stop: 05/04/17 06:01 Fentanyl (Sublimaze Injection -) 50 mcg IVPUSH [id number] PRN PRN Reason: PAIN Last Admin: 04/27/17 20:35 Dose: 50 mcg Ferrous Sulfate (Feosol -) 325 mg PO DAILY [facility] Last Admin: 05/03/17 09:36 Dose: 325 mg Gabapentin (Neurontin -) 100 mg PO BID [facility] Last Admin: 05/03/17 09:36 Dose: 100 mg Sodium Chloride (Normal Saline -) 1,000 mls @ 42 mls/hr IV ASDIR [facility] Last Admin: 05/01/17 21:37 Dose: 42 mls/hr Midodrine (Proamatine -) 10 mg PO TID-MID [facility] Last Admin: 05/03/17 09:37 Dose: 10 mg Morphine Sulfate (Morphine Sulfate) 2 mg IVPUSH Q4H PRN PRN Reason: PAIN Last Admin: 05/03/17 10:54 Dose: 2 mg Ondansetron HCl (Zofran Injection) 4 mg IVPUSH Q6H PRN PRN Reason: NAUSEA AND/OR VOMITING Pantoprazole Sodium (Protonix -) 40 mg PO DAILY [facility] Last Admin: 05/03/17 09:36 Dose: 40 mg Quetiapine Fumarate (Seroquel -) 25 mg PO BID [facility] Last Admin: 05/03/17 09:36 Dose: 25 mg Rosuvastatin Calcium (Crestor -) 20 mg PO HS [facility] Last Admin: 05/02/17 22:04 Dose: 20 mg Sucralfate (Carafate Oral Suspension -) 0.5 gm PO BID [facility] Last Admin: 05/03/17 09:37 Dose: 0.5 gm - Objective Vital Signs: Vital Signs Temperature 98.3 F 05/03/17 10:00 Pulse Rate 81 05/03/17 10:00 Respiratory Rate 20 05/03/17 10:00 Blood Pressure 107/59 05/03/17 10:00 O2 Sat by Pulse Oximetry (%) 94 L 05/03/17 09:00 Constitutional: Yes: No Distress, Anxious Cardiovascular: Yes: Regular Rate and Rhythm Respiratory: Yes: Regular, CTA Bilaterally Gastrointestinal: Yes: Normal Bowel Sounds, Soft Extremities: Yes: Other Neurological: Yes: Alert, Other Labs: CBC, BMP 05/03/17 06:00 05/02/17 14:15 INR, PTT INR 5.19 (0.82-1.09) H* 05/03/17 06:00 Assessment/Plan Problem List - Problems (1) ESRD (end stage renal disease) Code(s): N18.6 - END STAGE RENAL DISEASE (2) Atrial fibrillation Code(s): I48.91 - UNSPECIFIED ATRIAL FIBRILLATION Qualifiers: Atrial fibrillation type: persistent Qualified Code(s): I48.1 - Persistent atrial fibrillation (3) Critical lower limb ischemia Code(s): I99.8 - OTHER DISORDER OF CIRCULATORY SYSTEM (4) HLD (hyperlipidemia) Code(s): E78.5 - HYPERLIPIDEMIA, UNSPECIFIED Qualifiers: Hyperlipidemia type: pure hypercholesterolemia Qualified Code(s): E78.00 - Pure hypercholesterolemia, unspecified (5) HTN (hypertension) Code(s): I10 - ESSENTIAL (PRIMARY) HYPERTENSION Qualifiers: Hypertension type: essential hypertension Qualified Code(s): I10 - Essential (primary) hypertension (6) Open wnd foot-complicated Code(s): S91.309A - UNSPECIFIED OPEN WOUND, UNSPECIFIED FOOT, INITIAL ENCOUNTER (7) Peripheral arterial disease Code(s): I73.9 - PERIPHERAL VASCULAR DISEASE, UNSPECIFIED patient with aka plan continues to remain stable continue dialysis monitor rest as per primary team
[2017-05-03] MEDS: BUDESONIDE/FORMETEROL FUMARATE 80/4.5 mcg INHALER IH SCH ×2 (15:45→21:39)
[2017-05-03] MEDS: DOCUSATE SODIUM 100 MG CAPSULE (FP) PO SCH (21:38)
[2017-05-03] MEDS: ROSUVASTATIN CA 20 MG TABLET (FP) PO SCH (21:39)
[2017-05-03] MEDS: ALPRAZolam 0.25 MG TABLET PO SCH (21:39)
[2017-05-04] MEDS ORDERED: EPOETIN ALFA 10,000 UNIT/1 ML VIAL IVPUSH ONE (09:00)
[2017-05-04 09:39] LABS: HEMATOCRIT 35.6 % (35.4-49); MCH 27.3 pg (25.7-33.7); MEAN PLT VOLUME 7.7 fl (7.5-11.1); PLATELET COUNT 86 K/MM3 (134-434); RBC 4.05 M/mm3 (4.00-5.60); RDW 18.3 % (11.9-15.9); WHITE BLOOD COUNT 4.2 K/mm3 (4.0-10.0)
[2017-05-04 10:09] LABS: ANION GAP 12 (8-16); BLOOD UREA NITROGEN 45 mg/dL (7-18); CALCIUM 7.5 mg/dL (8.5-10.1); CHLORIDE 107 mmol/L (98-107); CO2 24 mmol/L (21-32); GLUCOSE,RANDOM 75 mg/dL (74-106); POTASSIUM 3.8 mmol/L (3.5-5.1); SODIUM 143 mmol/L (136-145)
[2017-05-04 10:10] LABS: CREATININE 5.8 mg/dL (0.7-1.3); PHOSPHOROUS 4.1 mg/dL (2.5-4.9)
[2017-05-04] MEDS: AMINO ACIDS/PROTEIN HYDROLYS 30 ML LIQUID.PKT PO SCH ×2 (10:26→17:07)
--- NOTE | 2017-05-04 13:19 | PN ---
Progress Note (short form) - Note Progress Note: Renal Follow up for ESRD on HD Pt seen and examined during dialysis BP stable, UF goal is 2.3L dialysis bath changed to 3k pt complains of diffuse body pain no sob Vital Signs Temperature 98.2 F 05/04/17 08:55 Pulse Rate 98 H 05/04/17 12:50 Respiratory Rate 18 05/04/17 12:50 Blood Pressure 122/72 05/04/17 12:50 O2 Sat by Pulse Oximetry (%) 93 L 05/03/17 20:27 Intake & Output 05/01/17 05/02/17 05/03/17 05/04/17 23:59 23:59 23:59 23:59 Intake Total 2091 1012 250 Output Total 0 Balance 2091 1012 250 0 NAD right LE MIKEY, eliezer in place, appears to be healing well CBC, BMP 05/04/17 09:00 05/04/17 09:00 Current Medications Acetaminophen (Tylenol -) 650 mg PO Q6H PRN PRN Reason: FEVER OR PAIN Last Admin: 05/03/17 09:35 Dose: 650 mg Alprazolam (Xanax -) 0.25 mg PO HS [facility] Last Admin: 05/03/17 21:39 Dose: 0.25 mg Amino Acids (Prosource No Carb Liquid Pkt) 30 ml PO BID@0800,1730 [facility] Last Admin: 05/04/17 10:26 Dose: Not Given Bacitracin (Bacitracin -) 1 applic TP BID [facility] Last Admin: 05/03/17 21:37 Dose: 1 applic Budesonide/Formoterol Fumarate (Symbicort 80/4.5mcg -) 2 puff IH BID [facility] Last Admin: 05/03/17 21:39 Dose: 2 puff Carvedilol (Coreg -) 3.125 mg PO BID [facility] Last Admin: 05/03/17 21:38 Dose: 3.125 mg Collagenase (Santyl -) 1 applic TP DAILY [facility] Last Admin: 05/02/17 10:06 Dose: Not Given Docusate Sodium (Colace -) 300 mg PO HS [facility] Last Admin: 05/03/17 21:38 Dose: 300 mg Fentanyl (Sublimaze Injection -) 50 mcg IVPUSH [id number] PRN PRN Reason: PAIN Last Admin: 04/27/17 20:35 Dose: 50 mcg Ferrous Sulfate (Feosol -) 325 mg PO DAILY [facility] Last Admin: 05/03/17 09:36 Dose: 325 mg Gabapentin (Neurontin -) 100 mg PO BID [facility] Last Admin: 05/03/17 21:39 Dose: 100 mg Sodium Chloride (Normal Saline -) 1,000 mls @ 42 mls/hr IV ASDIR [facility] Last Admin: 05/01/17 21:37 Dose: 42 mls/hr Midodrine (Proamatine -) 10 mg PO TID-MID [facility] Last Admin: 05/03/17 18:15 Dose: 10 mg Morphine Sulfate (Morphine Sulfate) 2 mg IVPUSH Q4H PRN PRN Reason: PAIN Last Admin: 05/03/17 10:54 Dose: 2 mg Ondansetron HCl (Zofran Injection) 4 mg IVPUSH Q6H PRN PRN Reason: NAUSEA AND/OR VOMITING Pantoprazole Sodium (Protonix -) 40 mg PO DAILY [facility] Last Admin: 05/03/17 09:36 Dose: 40 mg Quetiapine Fumarate (Seroquel -) 25 mg PO BID [facility] Last Admin: 05/03/17 21:39 Dose: 25 mg Rosuvastatin Calcium (Crestor -) 20 mg PO HS [facility] Last Admin: 05/03/17 21:39 Dose: 20 mg Sucralfate (Carafate Oral Suspension -) 0.5 gm PO BID [facility] Last Admin: 05/03/17 21:37 Dose: 0.5 gm 77 year old gentleman with PMhx of ESRD on HD (started in [place]) Hypertension, DVT, PVD s/p right AKA s/p recent admission for [place] wound that required amputation now presents from [place] s/p fall. #ESRD on HD tolerated dialysis today UF 2L dose all meds for intermittent HD #PVD s/p BKA s/p AKA wound care pain control vascular follow up #Anemia in CKD Hgb with good response s/p transfusion continue [facility] with HD Raghu Boogie DO
[2017-05-04] MEDS: BACITRACIN 15 GM TUBE TOPICAL OINTMENT TP SCH ×2 (14:23→22:50)
[2017-05-04] MEDS ORDERED: PT OWN MED DRAWER 7, Y5N ONE (14:27)
[2017-05-04] MEDS: FERROUS SO4 325 MG TABLET (FP) PO SCH (14:30)
[2017-05-04] MEDS: PANTOPRAZOLE 40 MG TABLET (FP) PO SCH (14:30)
[2017-05-04] MEDS: MIDODRINE HCL 5 MG TABLET PO SCH ×3 (14:32→18:46)
[2017-05-04] MEDS: SUCRALFATE 1 GM/10 ML UNIT DOSE CUPS PO SCH ×2 (14:36→22:50)
[2017-05-04] MEDS: CARVEDILOL 3.125 MG TABLET (FP) PO SCH ×2 (14:36→22:51)
[2017-05-04] MEDS: GABAPENTIN 100 MG CAPSULE (FP) PO SCH ×2 (14:37→22:51)
[2017-05-04] MEDS: BUDESONIDE/FORMETEROL FUMARATE 80/4.5 mcg INHALER IH SCH ×2 (14:39→22:52)
[2017-05-04] MEDS: QUEtiapine FUMARATE 25 MG TABLET (FP) PO SCH ×2 (14:42→22:52)
--- NOTE | 2017-05-04 15:47 | PN ---
Progress Note, Physician History of Present Illness: no new events confusion which is base line no events - Current Medication List Current Medications: Active Medications Acetaminophen (Tylenol -) 650 mg PO Q6H PRN PRN Reason: FEVER OR PAIN Last Admin: 05/03/17 09:35 Dose: 650 mg Alprazolam (Xanax -) 0.25 mg PO HS [facility] Last Admin: 05/03/17 21:39 Dose: 0.25 mg Amino Acids (Prosource No Carb Liquid Pkt) 30 ml PO BID@0800,1730 [facility] Last Admin: 05/04/17 10:26 Dose: Not Given Bacitracin (Bacitracin -) 1 applic TP BID [facility] Last Admin: 05/04/17 14:23 Dose: 1 applic Budesonide/Formoterol Fumarate (Symbicort 80/4.5mcg -) 2 puff IH BID [facility] Last Admin: 05/04/17 14:39 Dose: Not Given Carvedilol (Coreg -) 3.125 mg PO BID [facility] Last Admin: 05/04/17 14:36 Dose: 3.125 mg Collagenase (Santyl -) 1 applic TP DAILY [facility] Last Admin: 05/02/17 10:06 Dose: Not Given Docusate Sodium (Colace -) 300 mg PO HS [facility] Last Admin: 05/03/17 21:38 Dose: 300 mg Fentanyl (Sublimaze Injection -) 50 mcg IVPUSH [id number] PRN PRN Reason: PAIN Last Admin: 04/27/17 20:35 Dose: 50 mcg Ferrous Sulfate (Feosol -) 325 mg PO DAILY [facility] Last Admin: 05/04/17 14:30 Dose: 325 mg Gabapentin (Neurontin -) 100 mg PO BID [facility] Last Admin: 05/04/17 14:37 Dose: 100 mg Sodium Chloride (Normal Saline -) 1,000 mls @ 42 mls/hr IV ASDIR [facility] Last Admin: 05/01/17 21:37 Dose: 42 mls/hr Midodrine (Proamatine -) 10 mg PO TID-MID [facility] Last Admin: 05/04/17 14:39 Dose: Not Given Morphine Sulfate (Morphine Sulfate) 2 mg IVPUSH Q4H PRN PRN Reason: PAIN Last Admin: 05/03/17 10:54 Dose: 2 mg Ondansetron HCl (Zofran Injection) 4 mg IVPUSH Q6H PRN PRN Reason: NAUSEA AND/OR VOMITING Pantoprazole Sodium (Protonix -) 40 mg PO DAILY [facility] Last Admin: 05/04/17 14:30 Dose: 40 mg Quetiapine Fumarate (Seroquel -) 25 mg PO BID [facility] Last Admin: 05/04/17 14:42 Dose: 25 mg Rosuvastatin Calcium (Crestor -) 20 mg PO HS [facility] Last Admin: 05/03/17 21:39 Dose: 20 mg Sucralfate (Carafate Oral Suspension -) 0.5 gm PO BID [facility] Last Admin: 05/04/17 14:36 Dose: 0.5 gm - Objective Vital Signs: Vital Signs Temperature 100.8 F H 05/04/17 15:23 Pulse Rate 93 H 05/04/17 15:23 Respiratory Rate 20 05/04/17 15:23 Blood Pressure 121/68 05/04/17 15:23 O2 Sat by Pulse Oximetry (%) 93 L 05/03/17 20:27 Constitutional: Yes: No Distress, Calm HENT: Yes: Atraumatic Cardiovascular: Yes: Pulse Irregular Respiratory: Yes: Regular, CTA Bilaterally Gastrointestinal: Yes: Normal Bowel Sounds, Soft Musculoskeletal: Yes: Other Extremities: Yes: Other Neurological: Yes: Alert, Other Psychiatric: Yes: Other Labs: CBC, BMP 05/04/17 09:00 05/04/17 09:00 INR, PTT INR 5.19 (0.82-1.09) H* 05/03/17 06:00 Assessment/Plan Problem List - Problems (1) ESRD (end stage renal disease) Code(s): N18.6 - END STAGE RENAL DISEASE (2) Atrial fibrillation Code(s): I48.91 - UNSPECIFIED ATRIAL FIBRILLATION Qualifiers: Atrial fibrillation type: persistent Qualified Code(s): I48.1 - Persistent atrial fibrillation (3) Critical lower limb ischemia Code(s): I99.8 - OTHER DISORDER OF CIRCULATORY SYSTEM (4) HLD (hyperlipidemia) Code(s): E78.5 - HYPERLIPIDEMIA, UNSPECIFIED Qualifiers: Hyperlipidemia type: pure hypercholesterolemia Qualified Code(s): E78.00 - Pure hypercholesterolemia, unspecified (5) HTN (hypertension) Code(s): I10 - ESSENTIAL (PRIMARY) HYPERTENSION Qualifiers: Hypertension type: essential hypertension Qualified Code(s): I10 - Essential (primary) hypertension (6) Open wnd foot-complicated Code(s): S91.309A - UNSPECIFIED OPEN WOUND, UNSPECIFIED FOOT, INITIAL ENCOUNTER (7) Peripheral arterial disease Code(s): I73.9 - PERIPHERAL VASCULAR DISEASE, UNSPECIFIED patient with aka plan continue current [facility] re[facility] physio
[2017-05-04 18:01] LABS: INR 6.02 (0.82-1.09)
[2017-05-04] MEDS: COLLAGENASE CLOSTRIDIUM HIST. 30 GRAMS TUBE TP SCH (18:22)
[2017-05-04] MEDS: morphine SULFATE 4 MG/ML VIAL IVPUSH PRN (18:47)
[2017-05-04] MEDS: DOCUSATE SODIUM 100 MG CAPSULE (FP) PO SCH (22:50)
[2017-05-04] MEDS: ROSUVASTATIN CA 20 MG TABLET (FP) PO SCH (22:51)
[2017-05-04] MEDS: ACETAMINOPHEN 325 MG TABLET (FP) PO PRN (22:52)
[2017-05-05 08:15] LABS: PROTHROMBIN TIME (PATIENT) 65.8 SEC (9.98-11.88)
[2017-05-05 08:43] LABS: INR 5.82 (0.82-1.09)
--- NOTE | 2017-05-05 11:10 | PN ---
Progress Note, Physician History of Present Illness: no new events confusion which is base line no events patient blood pressure on the lower side - Current Medication List Current Medications: Active Medications Acetaminophen (Tylenol -) 650 mg PO Q6H PRN PRN Reason: FEVER OR PAIN Last Admin: 05/04/17 22:52 Dose: 650 mg Amino Acids (Prosource No Carb Liquid Pkt) 30 ml PO BID@0800,1730 [facility] Last Admin: 05/04/17 17:07 Dose: Not Given Bacitracin (Bacitracin -) 1 applic TP BID [facility] Last Admin: 05/04/17 22:50 Dose: 1 applic Budesonide/Formoterol Fumarate (Symbicort 80/4.5mcg -) 2 puff IH BID [facility] Last Admin: 05/04/17 22:52 Dose: 2 puff Carvedilol (Coreg -) 3.125 mg PO BID [facility] Last Admin: 05/04/17 22:51 Dose: 3.125 mg Collagenase (Santyl -) 1 applic TP DAILY [facility] Last Admin: 05/04/17 18:22 Dose: 1 applic Docusate Sodium (Colace -) 300 mg PO HS [facility] Last Admin: 05/04/17 22:50 Dose: 300 mg Fentanyl (Sublimaze Injection -) 50 mcg IVPUSH [id number] PRN PRN Reason: PAIN Last Admin: 04/27/17 20:35 Dose: 50 mcg Ferrous Sulfate (Feosol -) 325 mg PO DAILY [facility] Last Admin: 05/04/17 14:30 Dose: 325 mg Gabapentin (Neurontin -) 100 mg PO BID [facility] Last Admin: 05/04/17 22:51 Dose: 100 mg Midodrine (Proamatine -) 10 mg PO TID-MID [facility] Last Admin: 05/04/17 18:46 Dose: 10 mg Morphine Sulfate (Morphine Sulfate) 2 mg IVPUSH Q4H PRN PRN Reason: PAIN Last Admin: 05/04/17 18:47 Dose: 2 mg Ondansetron HCl (Zofran Injection) 4 mg IVPUSH Q6H PRN PRN Reason: NAUSEA AND/OR VOMITING Pantoprazole Sodium (Protonix -) 40 mg PO DAILY [facility] Last Admin: 05/04/17 14:30 Dose: 40 mg Quetiapine Fumarate (Seroquel -) 25 mg PO BID [facility] Last Admin: 05/04/17 22:52 Dose: 25 mg Rosuvastatin Calcium (Crestor -) 20 mg PO HS [facility] Last Admin: 05/04/17 22:51 Dose: 20 mg Sucralfate (Carafate Oral Suspension -) 0.5 gm PO BID [facility] Last Admin: 05/04/17 22:50 Dose: 0.5 gm - Objective Vital Signs: Vital Signs Temperature 97.8 F 05/05/17 06:00 Pulse Rate 77 05/05/17 06:00 Respiratory Rate 20 05/05/17 06:00 Blood Pressure 91/55 05/05/17 06:00 O2 Sat by Pulse Oximetry (%) 93 L 05/04/17 20:53 Constitutional: Yes: No Distress, Calm Cardiovascular: Yes: Pulse Irregular Respiratory: Yes: Regular, CTA Bilaterally Gastrointestinal: Yes: Normal Bowel Sounds, Soft Musculoskeletal: Yes: Other Extremities: Yes: Other Labs: CBC, BMP 05/04/17 09:00 05/04/17 09:00 INR, PTT INR 5.82 (0.82-1.09) H* 05/05/17 06:00 Assessment/Plan Problem List - Problems (1) ESRD (end stage renal disease) Code(s): N18.6 - END STAGE RENAL DISEASE (2) Atrial fibrillation Code(s): I48.91 - UNSPECIFIED ATRIAL FIBRILLATION Qualifiers: Atrial fibrillation type: persistent Qualified Code(s): I48.1 - Persistent atrial fibrillation (3) Critical lower limb ischemia Code(s): I99.8 - OTHER DISORDER OF CIRCULATORY SYSTEM (4) HLD (hyperlipidemia) Code(s): E78.5 - HYPERLIPIDEMIA, UNSPECIFIED Qualifiers: Hyperlipidemia type: pure hypercholesterolemia Qualified Code(s): E78.00 - Pure hypercholesterolemia, unspecified (5) HTN (hypertension) Code(s): I10 - ESSENTIAL (PRIMARY) HYPERTENSION Qualifiers: Hypertension type: essential hypertension Qualified Code(s): I10 - Essential (primary) hypertension (6) Open wnd foot-complicated Code(s): S91.309A - UNSPECIFIED OPEN WOUND, UNSPECIFIED FOOT, INITIAL ENCOUNTER (7) Peripheral arterial disease Code(s): I73.9 - PERIPHERAL VASCULAR DISEASE, UNSPECIFIED patient with aka plan continue current [facility] re[facility] physio monitor closely
[2017-05-05] MEDS ORDERED: SODIUM CHLORIDE 250 ML IV STA (11:44)
[2017-05-05] MEDS ORDERED: PT OWN MED DRAWER 7, Y5N ONE ×2 (11:50→18:41)
[2017-05-05] MEDS: SUCRALFATE 1 GM/10 ML UNIT DOSE CUPS PO SCH ×2 (12:07→22:48)
[2017-05-05] MEDS: PANTOPRAZOLE 40 MG TABLET (FP) PO SCH (12:07)
[2017-05-05] MEDS: COLLAGENASE CLOSTRIDIUM HIST. 30 GRAMS TUBE TP SCH ×2 (12:08→15:04)
[2017-05-05] MEDS: FERROUS SO4 325 MG TABLET (FP) PO SCH (12:08)
[2017-05-05] MEDS: GABAPENTIN 100 MG CAPSULE (FP) PO SCH ×2 (12:08→22:49)
[2017-05-05] MEDS: BACITRACIN 15 GM TUBE TOPICAL OINTMENT TP SCH ×2 (12:08→22:48)
[2017-05-05] MEDS: CARVEDILOL 3.125 MG TABLET (FP) PO SCH ×2 (12:09→22:49)
[2017-05-05] MEDS: MIDODRINE HCL 5 MG TABLET PO SCH ×3 (12:10→17:30)
[2017-05-05] MEDS: BUDESONIDE/FORMETEROL FUMARATE 80/4.5 mcg INHALER IH SCH ×2 (12:10→22:56)
--- NOTE | 2017-05-05 13:09 | PN ---
Progress Note (short form) - Note Progress Note: Renal Follow up for ESRD on HD Pt seen and examined at the bedside awake and alert no acute complaints pt had a fever overnight BP low this am, getting IVF bolous Vital Signs Temperature 97.8 F 05/05/17 06:00 Pulse Rate 77 05/05/17 06:00 Respiratory Rate 20 05/05/17 06:00 Blood Pressure 91/55 05/05/17 06:00 O2 Sat by Pulse Oximetry (%) 93 L 05/04/17 20:53 Intake & Output 05/02/17 05/03/17 05/04/17 05/05/17 23:59 23:59 23:59 23:59 Intake Total 1012 250 0 400 Output Total 0 Balance 1012 250 0 400 NAD soft NT/ND no sacral edema CBC, BMP 05/04/17 09:00 05/04/17 09:00 Laboratory Tests 04/11/17 04/14/17 04/18/17 06:30 14:15 08:10 Calcium 7.5 L 8.4 L Phosphorus 5.1 H 4.8 D Magnesium 2.3 D Albumin 1.9 L 05/04/17 09:00 Calcium 7.5 L Phosphorus 4.1 D Magnesium Albumin Current Medications Acetaminophen (Tylenol -) 650 mg PO Q6H PRN PRN Reason: FEVER OR PAIN Last Admin: 05/04/17 22:52 Dose: 650 mg Amino Acids (Prosource No Carb Liquid Pkt) 30 ml PO BID@0800,1730 [facility] Last Admin: 05/04/17 17:07 Dose: Not Given Bacitracin (Bacitracin -) 1 applic TP BID [facility] Last Admin: 05/05/17 12:08 Dose: 1 applic Budesonide/Formoterol Fumarate (Symbicort 80/4.5mcg -) 2 puff IH BID [facility] Last Admin: 05/05/17 12:10 Dose: 2 puff Carvedilol (Coreg -) 3.125 mg PO BID [facility] Last Admin: 05/05/17 12:09 Dose: Not Given Collagenase (Santyl -) 1 applic TP DAILY [facility] Last Admin: 05/05/17 12:08 Dose: 1 applic Docusate Sodium (Colace -) 300 mg PO HS [facility] Last Admin: 05/04/17 22:50 Dose: 300 mg Fentanyl (Sublimaze Injection -) 50 mcg IVPUSH [id number] PRN PRN Reason: PAIN Last Admin: 04/27/17 20:35 Dose: 50 mcg Ferrous Sulfate (Feosol -) 325 mg PO DAILY [facility] Last Admin: 05/05/17 12:08 Dose: 325 mg Gabapentin (Neurontin -) 100 mg PO BID [facility] Last Admin: 05/05/17 12:08 Dose: 100 mg Midodrine (Proamatine -) 10 mg PO TID-MID [facility] Last Admin: 05/05/17 12:10 Dose: 10 mg Morphine Sulfate (Morphine Sulfate) 2 mg IVPUSH Q4H PRN PRN Reason: PAIN Last Admin: 05/04/17 18:47 Dose: 2 mg Ondansetron HCl (Zofran Injection) 4 mg IVPUSH Q6H PRN PRN Reason: NAUSEA AND/OR VOMITING Pantoprazole Sodium (Protonix -) 40 mg PO DAILY [facility] Last Admin: 05/05/17 12:07 Dose: 40 mg Quetiapine Fumarate (Seroquel -) 25 mg PO BID [facility] Last Admin: 05/04/17 22:52 Dose: 25 mg Rosuvastatin Calcium (Crestor -) 20 mg PO HS [facility] Last Admin: 05/04/17 22:51 Dose: 20 mg Sucralfate (Carafate Oral Suspension -) 0.5 gm PO BID [facility] Last Admin: 05/05/17 12:07 Dose: 0.5 gm 77 year old gentleman with PMhx of ESRD on HD (started in [place]) Hypertension, DVT, PVD s/p right AKA s/p recent admission for [place] wound that required amputation now presents from [place] s/p fall. #ESRD on HD s/p dialysis yesterday, no acute indiction for treatment today #PVD s/p BKA s/p AKA wound care pain control vascular follow up #Fever/Hypotension check blood and urine cultures check CXR Abx as per ID #Anemia in CKD Hgb with good response s/p transfusion continue IVANIA with HD Raghu Boogie DO
--- NOTE | 2017-05-05 13:10 | PN ---
Physical Exam: SUBJECTIVE: Patient seen and examined OBJECTIVE: Vital Signs Period Temp Pulse Resp BP Sys/Coleman Pulse Ox Last 24 Hr 97.8 F-100.8 F 77-93 18-20 91-121/55-72 93 GENERAL: The patient is awake, alert, tolerating HD LUNGS: CTA CV: RRR, S1, S2 EXTREMITIES: bilateral AKA; left stump with surgical stapes, wound looks clearn , edges well-approximated, no erythema, no sign of infection; right stump with old scabs NEUROLOGICAL: Cranial nerves II through XII grossly intact. Normal speech SKIN: Stage II pressure ulcer right hip; unstageable sacral ulcer Active Medications Generic Name Dose Route Start Trade Name Freq PRN Reason Stop Acetaminophen 650 mg 04/27/17 21:08 Tylenol - PO Q6H PRN FEVER OR PAIN Amino Acids 30 ml 04/28/17 08:00 Prosource No Carb Liquid Pkt PO BID@0800,1730 [facility] Bacitracin 1 applic 04/28/17 22:00 Bacitracin - TP BID [facility] Budesonide/Formoterol Fumarate 2 puff 04/27/17 22:00 Symbicort 80/4.5mcg - IH BID [facility] Carvedilol 3.125 mg 04/27/17 22:00 Coreg - PO BID [facility] Collagenase 1 applic 04/28/17 10:00 Santyl - TP DAILY [facility] Docusate Sodium 300 mg 04/27/17 22:00 Colace - PO HS [facility] Fentanyl 50 mcg 04/27/17 19:59 Sublimaze Injection - IVPUSH [id number] PRN PAIN Ferrous Sulfate 325 mg 05/02/17 10:00 Feosol - PO DAILY [facility] Gabapentin 100 mg 04/27/17 22:00 Neurontin - PO BID [facility] Midodrine 10 mg 04/28/17 10:00 Proamatine - PO TID-MID [facility] Morphine Sulfate 2 mg 05/03/17 09:30 Morphine Sulfate IVPUSH Q4H PRN PAIN Ondansetron HCl 4 mg 04/27/17 19:59 Zofran Injection IVPUSH Q6H PRN NAUSEA AND/OR VOMITING Pantoprazole Sodium 40 mg 04/30/17 10:00 Protonix - PO DAILY [facility] Quetiapine Fumarate 25 mg 04/27/17 22:00 Seroquel - PO BID [facility] Rosuvastatin Calcium 20 mg 04/27/17 22:00 Crestor - PO HS [facility] Sucralfate 0.5 gm 04/27/17 22:00 Carafate Oral Suspension - PO BID [facility] ASSESSMENT/PLAN: 77 year-old male with PMH significant for HTN, CAD, Afib, PVD, ESRD, anemia, COPD, GERD, anxiety, DVT, AAA-infrarenal, Hepatitis B, 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 Plan: 1. Anemia - Hgb stable - S/p 2u PRBC with HD on 04/29, and 1u PRBC on 04/28 - Stool for occult blood positive, continue Protonix - Appreciate GI consult: no need for urgent EGD/colonoscopy now 2. ESRD - HD M,W,F - HD per Renal service 3. L BKA/PVD - AKA 04/27/17 - Cont gabapentin for pain - Off all antibiotics - Pain management - Appreciate vascular surgery consult 4. HTN/HLD/CAD - Cont home crestor, coreg 5. s/p fall - Head CT negative - Fall precautions 6. Afib, rate controlled - INR supratherapeutic and continues to trend up, hold coumadin 7. Thrombocytopenia - present on previous admission, labile, monitor 8. GERD - Restart protonix 9. DVT PPX - On Coumadin, INR supratherapeutic 10. Dispo: - Will need discharge to SNF CODE STATUS: FULL CODE Visit type - Emergency Visit Emergency Visit: Yes ED Registration Date: 04/21/17 Care time: The patient presented to the Emergency Department on the above date and was hospitalized for further evaluation of their emergent condition. - New Patient This patient is new to me today: No - Critical Care Critical Care patient: No
--- NOTE | 2017-05-05 13:15 | PN ---
Physical Exam: SUBJECTIVE: Patient seen and examined OBJECTIVE: Vital Signs Period Temp Pulse Resp BP Sys/Coleman Pulse Ox Last 24 Hr 97.8 F-100.8 F 77-93 18-20 91-121/55-72 93 GENERAL: The patient is awake, more alert, more interactive LUNGS: CTA CV: RRR, S1, S2 EXTREMITIES: bilateral AKA; left stump with surgical stapes, wound looks clearn , edges well-approximated, no erythema, no sign of infection; right stump with old scabs NEUROLOGICAL: Cranial nerves II through XII grossly intact. Normal speech SKIN: Stage II pressure ulcer right hip; unstageable sacral ulcer Active Medications Generic Name Dose Route Start Trade Name Freq PRN Reason Stop Acetaminophen 650 mg 04/27/17 21:08 Tylenol - PO Q6H PRN FEVER OR PAIN Amino Acids 30 ml 04/28/17 08:00 Prosource No Carb Liquid Pkt PO BID@0800,1730 [facility] Bacitracin 1 applic 04/28/17 22:00 Bacitracin - TP BID [facility] Budesonide/Formoterol Fumarate 2 puff 04/27/17 22:00 Symbicort 80/4.5mcg - IH BID [facility] Carvedilol 3.125 mg 04/27/17 22:00 Coreg - PO BID [facility] Collagenase 1 applic 04/28/17 10:00 Santyl - TP DAILY [facility] Docusate Sodium 300 mg 04/27/17 22:00 Colace - PO HS [facility] Epoetin Nash 10,000 units 05/06/17 06:00 Epogen - IVPUSH 05/06/17 06:01 ONCE ONE Fentanyl 50 mcg 04/27/17 19:59 Sublimaze Injection - IVPUSH [id number] PRN PAIN Ferrous Sulfate 325 mg 05/02/17 10:00 Feosol - PO DAILY [facility] Gabapentin 100 mg 04/27/17 22:00 Neurontin - PO BID [facility] Midodrine 10 mg 04/28/17 10:00 Proamatine - PO TID-MID [facility] Morphine Sulfate 2 mg 05/03/17 09:30 Morphine Sulfate IVPUSH Q4H PRN PAIN Ondansetron HCl 4 mg 04/27/17 19:59 Zofran Injection IVPUSH Q6H PRN NAUSEA AND/OR VOMITING Pantoprazole Sodium 40 mg 04/30/17 10:00 Protonix - PO DAILY [facility] Quetiapine Fumarate 25 mg 04/27/17 22:00 Seroquel - PO BID [facility] Rosuvastatin Calcium 20 mg 04/27/17 22:00 Crestor - PO HS [facility] Sucralfate 0.5 gm 04/27/17 22:00 Carafate Oral Suspension - PO BID [facility] ASSESSMENT/PLAN: 77 year-old male with PMH significant for HTN, CAD, Afib, PVD, ESRD, anemia, COPD, GERD, anxiety, DVT, AAA-infrarenal, Hepatitis B, 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 Plan: 1. Anemia - Hgb stable - S/p 2u PRBC with HD on 04/29, and 1u PRBC on 04/28 - Stool for occult blood positive, continue Protonix - Appreciate GI consult: no need for urgent EGD/colonoscopy now 2. ESRD - HD M,W,F - HD per Renal service 3. L BKA/PVD - AKA 04/27/17 - Cont gabapentin for pain - Off all antibiotics - Pain management - Appreciate vascular surgery consult 4. HTN/HLD/CAD - Cont home crestor, coreg 5. s/p fall - Head CT negative - Fall precautions 6. Afib, rate controlled - INR supratherapeutic, continue to hold coumadin 7. Thrombocytopenia - present on previous admission, labile, monitor 8. GERD - protonix 9. DVT PPX - On Coumadin, INR supratherapeutic 10. Dispo: - Will need discharge to SNF CODE STATUS: FULL CODE Visit type - Emergency Visit Emergency Visit: Yes ED Registration Date: 04/21/17 Care time: The patient presented to the Emergency Department on the above date and was hospitalized for further evaluation of their emergent condition. - New Patient This patient is new to me today: No - Critical Care Critical Care patient: No
[2017-05-05] MEDS: AMINO ACIDS/PROTEIN HYDROLYS 30 ML LIQUID.PKT PO SCH ×2 (15:03→17:30)
[2017-05-05] MEDS: QUEtiapine FUMARATE 25 MG TABLET (FP) PO SCH ×2 (15:06→22:50)
--- NOTE | 2017-05-05 17:25 | PN ---
Progress Note (short form) - Note Progress Note: Vascular Surgery Pt seen and examined. Left AKA stump with erythema at staple line. Every other staple removed to remove tension on skin. BAcitracin to staple line daily. Rest of the eliezer come out in one week. Pt is POD #8. Faizan Villa DO
--- NOTE | 2017-05-05 18:11 | PN ---
Physical Exam: SUBJECTIVE: Patient seen and examined. He is calm, making conversation, no sensible. BP improved with gentle fluids and sensorium has improved since earlier the day OBJECTIVE: Vital Signs Period Temp Pulse Resp BP Sys/Coleman Pulse Ox Last 24 Hr 97.3 F-100.4 F 76-89 18-20 84-120/42-72 93-96 PE Neuro: alert, awake, cn 2-12 intact oriented to self Pulm: CTA CV: s1 s2 rrr no mrg Abd: s nt nd + bs Ext: b/l BKA, L knee with eliezer Laboratory Results - last 24 hr 05/05/17 06:00 PT with INR 65.80 H INR 5.82 H* Active Medications Generic Name Dose Route Start Last Admin Trade Name Freq PRN Reason Stop Dose Admin Acetaminophen 650 mg 04/27/17 21:08 05/04/17 22:52 Tylenol - PO 650 mg Q6H PRN Administration FEVER OR PAIN Amino Acids 30 ml 04/28/17 08:00 05/05/17 17:30 Prosource No Carb Liquid Pkt PO 30 ml BID@0800,1730 [facility] Administration Bacitracin 1 applic 04/28/17 22:00 05/05/17 12:08 Bacitracin - TP 1 applic BID [facility] Administration Budesonide/Formoterol Fumarate 2 puff 04/27/17 22:00 05/05/17 12:10 Symbicort 80/4.5mcg - IH 2 puff BID [facility] Administration Carvedilol 3.125 mg 04/27/17 22:00 05/05/17 12:09 Coreg - PO Not Given BID [facility] Collagenase 1 applic 04/28/17 10:00 05/05/17 15:04 Santyl - TP 1 applic DAILY [facility] Administration Docusate Sodium 300 mg 04/27/17 22:00 05/04/17 22:50 Colace - PO 300 mg HS [facility] Administration Epoetin Nash 10,000 units 05/06/17 06:00 Epogen - IVPUSH 05/06/17 06:01 ONCE ONE Fentanyl 50 mcg 04/27/17 19:59 04/27/17 20:35 Sublimaze Injection - IVPUSH 50 mcg [id number] PRN Administration PAIN Ferrous Sulfate 325 mg 05/02/17 10:00 05/05/17 12:08 Feosol - PO 325 mg DAILY [facility] Administration Gabapentin 100 mg 04/27/17 22:00 05/05/17 12:08 Neurontin - PO 100 mg BID [facility] Administration Midodrine 10 mg 04/28/17 10:00 05/05/17 17:30 Proamatine - PO 10 mg TID-MID [facility] Administration Morphine Sulfate 2 mg 05/03/17 09:30 05/04/17 18:47 Morphine Sulfate IVPUSH 2 mg Q4H PRN Administration PAIN Ondansetron HCl 4 mg 04/27/17 19:59 Zofran Injection IVPUSH Q6H PRN NAUSEA AND/OR VOMITING Pantoprazole Sodium 40 mg 04/30/17 10:00 05/05/17 12:07 Protonix - PO 40 mg DAILY [facility] Administration Quetiapine Fumarate 25 mg 04/27/17 22:00 05/05/17 15:06 Seroquel - PO 25 mg BID [facility] Administration Rosuvastatin Calcium 20 mg 04/27/17 22:00 05/04/17 22:51 Crestor - PO 20 mg HS [facility] Administration Sucralfate 0.5 gm 04/27/17 22:00 05/05/17 12:07 Carafate Oral Suspension - PO 0.5 gm BID [facility] Administration Assessment: 77 year old male with PMH significant for HTN, CAD, Afib, PVD, ESRD , anemia, COPD, GERD, anxiety, DVT, AAA-infrarenal, Hepatitis B, L BKA 02/28/17 presented to the ED from [place] s/p Fall. Plan: 1. Hypotension/fever - BP improved with fluids - Send blood cultures 2. Anemia - Hgb stable - S/p 2u PRBC with HD on 04/29, and 1u PRBC on 04/28 - Stool for occult blood positive, continue Protonix - Appreciate GI consult: no need for urgent EGD/colonoscopy now 3. ESRD - HD M,W,F - HD per Renal service 4. L BKA/PVD - AKA 04/27/17 - Cont gabapentin for pain - Off all antibiotics - Pain management 5. HTN/HLD/CAD - Cont home crestor, coreg 6. s/p fall - Head CT negative - Fall precautions 7. Afib, rate controlled - INR supratherapeutic, continue to hold coumadin 8. Thrombocytopenia - present on previous admission, labile, monitor 9. GERD - protonix 10. DVT PPX - On Coumadin, INR supratherapeutic 11. Dispo: - Will need discharge to SNF once INR improved CODE STATUS: FULL CODE Visit type - Emergency Visit Emergency Visit: Yes ED Registration Date: 04/21/17 Care time: The patient presented to the Emergency Department on the above date and was hospitalized for further evaluation of their emergent condition. - New Patient This patient is new to me today: No - Critical Care Critical Care patient: No
[2017-05-05] MEDS: ROSUVASTATIN CA 20 MG TABLET (FP) PO SCH (22:49)
[2017-05-05] MEDS: DOCUSATE SODIUM 100 MG CAPSULE (FP) PO SCH (22:49)
[2017-05-05] MEDS: ACETAMINOPHEN 325 MG TABLET (FP) PO PRN (22:50)
[2017-05-06] MEDS ORDERED: EPOETIN ALFA 10,000 UNIT/1 ML VIAL IVPUSH ONE (06:00)
[2017-05-06 08:52] LABS: PROTHROMBIN TIME (PATIENT) 59.4 SEC (9.98-11.88)
[2017-05-06 09:11] LABS: INR 5.26 (0.82-1.09)
[2017-05-06 09:24] LABS: HEMATOCRIT 36.1 % (35.4-49); HEMOGLOBIN 11.1 GM/dL (11.7-16.9); MCHC 30.8 g/dl (32.0-35.9); MEAN CELL VOLUME 87.8 fl (80-96); MEAN PLT VOLUME 7.9 fl (7.5-11.1); PLATELET COUNT 108 K/MM3 (134-434); RBC 4.11 M/mm3 (4.00-5.60); WHITE BLOOD COUNT 3.9 K/mm3 (4.0-10.0)
[2017-05-06 09:46] LABS: ANION GAP 11 (8-16); BLOOD UREA NITROGEN 53 mg/dL (7-18); CALCIUM 7.5 mg/dL (8.5-10.1); CHLORIDE 107 mmol/L (98-107); CO2 25 mmol/L (21-32); CREATININE 6.3 mg/dL (0.7-1.3); GLUCOSE,RANDOM 90 mg/dL (74-106); PHOSPHOROUS 4.4 mg/dL (2.5-4.9); SODIUM 143 mmol/L (136-145)
[2017-05-06] MEDS ORDERED: PT OWN MED DRAWER 7, Y5N ONE ×3 (11:01→19:47)
--- NOTE | 2017-05-06 11:29 | PN ---
Progress Note, Physician History of Present Illness: patient with no specific events - Current Medication List Current Medications: Active Medications Acetaminophen (Tylenol -) 650 mg PO Q6H PRN PRN Reason: FEVER OR PAIN Last Admin: 05/05/17 22:50 Dose: 650 mg Amino Acids (Prosource No Carb Liquid Pkt) 30 ml PO BID@0800,1730 [facility] Last Admin: 05/05/17 17:30 Dose: 30 ml Bacitracin (Bacitracin -) 1 applic TP BID [facility] Last Admin: 05/05/17 22:48 Dose: 1 applic Budesonide/Formoterol Fumarate (Symbicort 80/4.5mcg -) 2 puff IH BID [facility] Last Admin: 05/05/17 22:56 Dose: Not Given Carvedilol (Coreg -) 3.125 mg PO BID [facility] Last Admin: 05/05/17 22:49 Dose: 3.125 mg Collagenase (Santyl -) 1 applic TP DAILY [facility] Last Admin: 05/05/17 15:04 Dose: 1 applic Docusate Sodium (Colace -) 300 mg PO HS [facility] Last Admin: 05/05/17 22:49 Dose: 300 mg Fentanyl (Sublimaze Injection -) 50 mcg IVPUSH [id number] PRN PRN Reason: PAIN Last Admin: 04/27/17 20:35 Dose: 50 mcg Ferrous Sulfate (Feosol -) 325 mg PO DAILY [facility] Last Admin: 05/05/17 12:08 Dose: 325 mg Gabapentin (Neurontin -) 100 mg PO BID [facility] Last Admin: 05/05/17 22:49 Dose: 100 mg Midodrine (Proamatine -) 10 mg PO TID-MID [facility] Last Admin: 05/05/17 17:30 Dose: 10 mg Ondansetron HCl (Zofran Injection) 4 mg IVPUSH Q6H PRN PRN Reason: NAUSEA AND/OR VOMITING Pantoprazole Sodium (Protonix -) 40 mg PO DAILY [facility] Last Admin: 05/05/17 12:07 Dose: 40 mg Quetiapine Fumarate (Seroquel -) 25 mg PO BID [facility] Last Admin: 05/05/17 22:50 Dose: 25 mg Rosuvastatin Calcium (Crestor -) 20 mg PO HS [facility] Last Admin: 05/05/17 22:49 Dose: 20 mg Sucralfate (Carafate Oral Suspension -) 0.5 gm PO BID [facility] Last Admin: 05/05/17 22:48 Dose: 0.5 gm - Objective Vital Signs: Vital Signs Temperature 97.5 F L 05/06/17 06:26 Pulse Rate 72 05/06/17 06:26 Respiratory Rate 18 05/06/17 06:26 Blood Pressure 83/52 05/06/17 06:26 O2 Sat by Pulse Oximetry (%) 94 L 05/05/17 21:00 Constitutional: Yes: No Distress, Anxious Cardiovascular: Yes: Pulse Irregular, S1, S2 Respiratory: Yes: Regular, CTA Bilaterally Gastrointestinal: Yes: Normal Bowel Sounds, Soft Labs: CBC, BMP 05/06/17 09:00 05/06/17 09:00 INR, PTT INR 5.26 (0.82-1.09) H* 05/06/17 08:00 Assessment/Plan Problem List - Problems (1) ESRD (end stage renal disease) Code(s): N18.6 - END STAGE RENAL DISEASE (2) Atrial fibrillation Code(s): I48.91 - UNSPECIFIED ATRIAL FIBRILLATION Qualifiers: Atrial fibrillation type: persistent Qualified Code(s): I48.1 - Persistent atrial fibrillation (3) Critical lower limb ischemia Code(s): I99.8 - OTHER DISORDER OF CIRCULATORY SYSTEM (4) HLD (hyperlipidemia) Code(s): E78.5 - HYPERLIPIDEMIA, UNSPECIFIED Qualifiers: Hyperlipidemia type: pure hypercholesterolemia Qualified Code(s): E78.00 - Pure hypercholesterolemia, unspecified (5) HTN (hypertension) Code(s): I10 - ESSENTIAL (PRIMARY) HYPERTENSION Qualifiers: Hypertension type: essential hypertension Qualified Code(s): I10 - Essential (primary) hypertension (6) Open wnd foot-complicated Code(s): S91.309A - UNSPECIFIED OPEN WOUND, UNSPECIFIED FOOT, INITIAL ENCOUNTER (7) Peripheral arterial disease Code(s): I73.9 - PERIPHERAL VASCULAR DISEASE, UNSPECIFIED patient with aka plan continue current mgmt rest as per primary
[2017-05-06] MEDS: FERROUS SO4 325 MG TABLET (FP) PO SCH (12:34)
[2017-05-06] MEDS: QUEtiapine FUMARATE 25 MG TABLET (FP) PO SCH ×2 (12:34→21:55)
[2017-05-06] MEDS: GABAPENTIN 100 MG CAPSULE (FP) PO SCH ×2 (12:34→21:54)
[2017-05-06] MEDS: PANTOPRAZOLE 40 MG TABLET (FP) PO SCH (12:35)
[2017-05-06] MEDS: SUCRALFATE 1 GM/10 ML UNIT DOSE CUPS PO SCH ×2 (12:35→21:53)
[2017-05-06] MEDS: AMINO ACIDS/PROTEIN HYDROLYS 30 ML LIQUID.PKT PO SCH ×2 (12:35→17:51)
[2017-05-06] MEDS: MIDODRINE HCL 5 MG TABLET PO SCH ×3 (12:35→17:52)
[2017-05-06] MEDS: BACITRACIN 15 GM TUBE TOPICAL OINTMENT TP SCH ×2 (12:39→21:53)
[2017-05-06] MEDS: CARVEDILOL 3.125 MG TABLET (FP) PO SCH ×2 (12:40→21:54)
[2017-05-06] MEDS: COLLAGENASE CLOSTRIDIUM HIST. 30 GRAMS TUBE TP SCH (12:42)
[2017-05-06] MEDS: BUDESONIDE/FORMETEROL FUMARATE 80/4.5 mcg INHALER IH SCH ×2 (12:44→21:55)
--- NOTE | 2017-05-06 13:54 | PN ---
Physical Exam: SUBJECTIVE: Patient seen and examined. No issues today. OBJECTIVE: Vital Signs Period Temp Pulse Resp BP Sys/Coleman Pulse Ox Last 24 Hr 97.5 F-99.0 F 60-82 18-20 83-119/41-62 94 PE Neuro: alert, awake, cn 2-12 intact oriented to self Pulm: CTA CV: s1 s2 rrr no mrg Abd: s nt nd + bs Ext: b/l BKA, L knee with eliezer, no bleeding no erythema Laboratory Results - last 24 hr 05/06/17 05/06/17 05/06/17 08:00 09:00 09:00 WBC 3.9 L RBC 4.11 Hgb 11.1 L Hct 36.1 MCV 87.8 MCH 27.0 MCHC 30.8 L RDW 18.0 H Plt Count 108 L D MPV 7.9 PT with INR 59.40 H INR 5.26 H* Sodium 143 Potassium 4.0 Chloride 107 Carbon Dioxide 25 Anion Gap 11 BUN 53 H Creatinine 6.3 H Random Glucose 90 Calcium 7.5 L Phosphorus 4.4 Active Medications Generic Name Dose Route Start Last Admin Trade Name Freq PRN Reason Stop Dose Admin Acetaminophen 650 mg 04/27/17 21:08 05/05/17 22:50 Tylenol - PO 650 mg Q6H PRN Administration FEVER OR PAIN Amino Acids 30 ml 04/28/17 08:00 05/06/17 12:35 Prosource No Carb Liquid Pkt PO 30 ml BID@0800,1730 [facility] Administration Bacitracin 1 applic 04/28/17 22:00 05/06/17 12:39 Bacitracin - TP 1 applic BID [facility] Administration Budesonide/Formoterol Fumarate 2 puff 04/27/17 22:00 05/06/17 12:44 Symbicort 80/4.5mcg - IH 2 puff BID [facility] Administration Carvedilol 3.125 mg 04/27/17 22:00 05/06/17 12:40 Coreg - PO Not Given BID [facility] Collagenase 1 applic 04/28/17 10:00 05/06/17 12:42 Santyl - TP 1 applic DAILY [facility] Administration Docusate Sodium 300 mg 04/27/17 22:00 05/05/17 22:49 Colace - PO 300 mg HS [facility] Administration Fentanyl 50 mcg 04/27/17 19:59 04/27/17 20:35 Sublimaze Injection - IVPUSH 50 mcg [id number] PRN Administration PAIN Ferrous Sulfate 325 mg 05/02/17 10:00 05/06/17 12:34 Feosol - PO 325 mg DAILY [facility] Administration Gabapentin 100 mg 04/27/17 22:00 05/06/17 12:34 Neurontin - PO 100 mg BID [facility] Administration Midodrine 10 mg 04/28/17 10:00 05/06/17 12:35 Proamatine - PO 10 mg TID-MID [facility] Administration Ondansetron HCl 4 mg 04/27/17 19:59 Zofran Injection IVPUSH Q6H PRN NAUSEA AND/OR VOMITING Pantoprazole Sodium 40 mg 04/30/17 10:00 05/06/17 12:35 Protonix - PO 40 mg DAILY [facility] Administration Quetiapine Fumarate 25 mg 04/27/17 22:00 05/06/17 12:34 Seroquel - PO 25 mg BID [facility] Administration Rosuvastatin Calcium 20 mg 04/27/17 22:00 05/05/17 22:49 Crestor - PO 20 mg HS [facility] Administration Sucralfate 0.5 gm 04/27/17 22:00 05/06/17 12:35 Carafate Oral Suspension - PO 0.5 gm BID [facility] Administration Assessment: 77 year old male with PMH significant for HTN, CAD, Afib, PVD, ESRD , anemia, COPD, GERD, anxiety, DVT, AAA-infrarenal, Hepatitis B, 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 Plan: 1. Hypotension/fever - BP remains stable - Blood cx pending, no fevers thus far 2. Anemia - Hgb stable - S/p 2u PRBC with HD on 04/29, and 1u PRBC on 04/28 - Stool for occult blood positive, continue Protonix - Appreciate GI consult: no need for urgent EGD/colonoscopy now 3. ESRD - HD M,W,F - HD per Renal service 4. L BKA/PVD - Every other staple removed, remainder to removed in 1 week - AKA 04/27/17 - Cont gabapentin for pain - Off abx 5. HTN/HLD/CAD - Cont home crestor, coreg 6. s/p fall - Head CT negative - Fall precautions 7. Afib, rate controlled - INR supratherapeutic, continue to hold coumadin 8. Thrombocytopenia - present on previous admission, labile, monitor 9. GERD - protonix 10. DVT PPX - On Coumadin, INR supratherapeutic 11. Dispo: - Will need discharge to SNF once INR improved CODE STATUS: FULL CODE Visit type - Emergency Visit Emergency Visit: Yes ED Registration Date: 04/21/17 Care time: The patient presented to the Emergency Department on the above date and was hospitalized for further evaluation of their emergent condition. - New Patient This patient is new to me today: No - Critical Care Critical Care patient: No
--- NOTE | 2017-05-06 16:31 | PN ---
Progress Note (short form) - Note Progress Note: Renal Follow up for ESRD on HD Pt seen and examined at the bedside s/p dialysis this am infiltrated venous needle and was not able to be retarted had 1.5 hours of treatment today pt without complaints Vital Signs Temperature 98.2 F 05/06/17 15:45 Pulse Rate 87 05/06/17 15:45 Respiratory Rate 20 05/06/17 15:45 Blood Pressure 120/68 05/06/17 15:45 O2 Sat by Pulse Oximetry (%) 96 05/06/17 09:00 Intake & Output 05/03/17 05/04/17 05/05/17 05/06/17 23:59 23:59 23:59 23:59 Intake Total 250 0 900 220 Output Total 0 Balance 250 0 900 220 NAD soft NT/ND no sacral edema avf + thill CBC, BMP 05/06/17 09:00 05/06/17 09:00 Current Medications Acetaminophen (Tylenol -) 650 mg PO Q6H PRN PRN Reason: FEVER OR PAIN Last Admin: 05/05/17 22:50 Dose: 650 mg Amino Acids (Prosource No Carb Liquid Pkt) 30 ml PO BID@0800,1730 [facility] Last Admin: 05/06/17 12:35 Dose: 30 ml Bacitracin (Bacitracin -) 1 applic TP BID [facility] Last Admin: 05/06/17 12:39 Dose: 1 applic Budesonide/Formoterol Fumarate (Symbicort 80/4.5mcg -) 2 puff IH BID [facility] Last Admin: 05/06/17 12:44 Dose: 2 puff Carvedilol (Coreg -) 3.125 mg PO BID [facility] Last Admin: 05/06/17 12:40 Dose: Not Given Collagenase (Santyl -) 1 applic TP DAILY [facility] Last Admin: 05/06/17 12:42 Dose: 1 applic Docusate Sodium (Colace -) 300 mg PO HS [facility] Last Admin: 05/05/17 22:49 Dose: 300 mg Fentanyl (Sublimaze Injection -) 50 mcg IVPUSH [id number] PRN PRN Reason: PAIN Last Admin: 04/27/17 20:35 Dose: 50 mcg Ferrous Sulfate (Feosol -) 325 mg PO DAILY [facility] Last Admin: 05/06/17 12:34 Dose: 325 mg Gabapentin (Neurontin -) 100 mg PO BID [facility] Last Admin: 05/06/17 12:34 Dose: 100 mg Midodrine (Proamatine -) 10 mg PO TID-MID [facility] Last Admin: 05/06/17 12:35 Dose: 10 mg Ondansetron HCl (Zofran Injection) 4 mg IVPUSH Q6H PRN PRN Reason: NAUSEA AND/OR VOMITING Pantoprazole Sodium (Protonix -) 40 mg PO DAILY [facility] Last Admin: 05/06/17 12:35 Dose: 40 mg Quetiapine Fumarate (Seroquel -) 25 mg PO BID [facility] Last Admin: 05/06/17 12:34 Dose: 25 mg Rosuvastatin Calcium (Crestor -) 20 mg PO HS [facility] Last Admin: 05/05/17 22:49 Dose: 20 mg Sucralfate (Carafate Oral Suspension -) 0.5 gm PO BID [facility] Last Admin: 05/06/17 12:35 Dose: 0.5 gm 77 year old gentleman with PMhx of ESRD on HD (started in [place]) Hypertension, DVT, PVD s/p right AKA s/p recent admission for [place] wound that required amputation now presents from [place] s/p fall. #ESRD on HD s/p dialysis today, cut short by infiltrated venous needle check bmp in am next planned dialysis is for tuesday #PVD s/p BKA s/p AKA wound care pain control vascular follow up #Fever/Hypotension blood cultures w/o growth CXR w/o evidence of PNA #Anemia in CKD Hgb with good response s/p transfusion continue IVAN[facility] with HD Raghu Boogie DO
[2017-05-06] MEDS: DOCUSATE SODIUM 100 MG CAPSULE (FP) PO SCH (21:53)
[2017-05-06] MEDS: ROSUVASTATIN CA 20 MG TABLET (FP) PO SCH (21:54)
[2017-05-07 07:37] LABS: BASO % 0.9 % (0-2.0); EOS % 3.2 % (0-4.5); HEMOGLOBIN 10.4 GM/dL (11.7-16.9); LYMPH % 15.9 % (8-40); MCH 27.1 pg (25.7-33.7); MCHC 30.7 g/dl (32.0-35.9); MEAN CELL VOLUME 88.4 fl (80-96); MEAN PLT VOLUME 7.9 fl (7.5-11.1); MONO % 19.3 % (3.8-10.2); NEUT % 60.7 % (42.8-82.8); PLATELET COUNT 100 K/MM3 (134-434); RBC 3.85 M/mm3 (4.00-5.60); RDW 18.4 % (11.9-15.9); WHITE BLOOD COUNT 4.2 K/mm3 (4.0-10.0)
[2017-05-07 08:47] LABS: PROTHROMBIN TIME (PATIENT) 49.4 SEC (9.98-11.88)
[2017-05-07 09:18] LABS: INR 4.37 (0.82-1.09)
[2017-05-07] MEDS: PANTOPRAZOLE 40 MG TABLET (FP) PO SCH (10:06)
[2017-05-07] MEDS: FERROUS SO4 325 MG TABLET (FP) PO SCH (10:06)
[2017-05-07] MEDS: SUCRALFATE 1 GM/10 ML UNIT DOSE CUPS PO SCH ×2 (10:06→21:43)
[2017-05-07] MEDS: AMINO ACIDS/PROTEIN HYDROLYS 30 ML LIQUID.PKT PO SCH ×3 (10:06→19:53)
[2017-05-07] MEDS: GABAPENTIN 100 MG CAPSULE (FP) PO SCH ×2 (10:07→21:44)
[2017-05-07] MEDS: COLLAGENASE CLOSTRIDIUM HIST. 30 GRAMS TUBE TP SCH (10:07)
[2017-05-07] MEDS: QUEtiapine FUMARATE 25 MG TABLET (FP) PO SCH ×2 (10:07→21:45)
[2017-05-07] MEDS: BUDESONIDE/FORMETEROL FUMARATE 80/4.5 mcg INHALER IH SCH ×2 (10:08→21:45)
[2017-05-07] MEDS: BACITRACIN 15 GM TUBE TOPICAL OINTMENT TP SCH ×2 (10:13→21:43)
[2017-05-07] MEDS: CARVEDILOL 3.125 MG TABLET (FP) PO SCH ×2 (10:13→21:44)
[2017-05-07] MEDS: MIDODRINE HCL 5 MG TABLET PO SCH ×3 (10:20→18:05)
[2017-05-07 11:22] LABS: ANION GAP 11 (8-16); BLOOD UREA NITROGEN 60 mg/dL (7-18); CALCIUM 7.9 mg/dL (8.5-10.1); CHLORIDE 107 mmol/L (98-107); CO2 26 mmol/L (21-32); CREATININE 6.7 mg/dL (0.7-1.3); GLUCOSE,RANDOM 81 mg/dL (74-106); POTASSIUM 3.8 mmol/L (3.5-5.1); SODIUM 144 mmol/L (136-145)
--- NOTE | 2017-05-07 14:57 | PN ---
Progress Note, Physician History of Present Illness: Pt known to me. Events noted. Currently he is afebrile, without distress. - Current Medication List Current Medications: Active Medications Acetaminophen (Tylenol -) 650 mg PO Q6H PRN PRN Reason: FEVER OR PAIN Last Admin: 05/05/17 22:50 Dose: 650 mg Amino Acids (Prosource No Carb Liquid Pkt) 30 ml PO BID@0800,1730 [facility] Last Admin: 05/07/17 10:21 Dose: 30 ml Bacitracin (Bacitracin -) 1 applic TP BID [facility] Last Admin: 05/07/17 10:13 Dose: 1 applic Budesonide/Formoterol Fumarate (Symbicort 80/4.5mcg -) 2 puff IH BID [facility] Last Admin: 05/07/17 10:08 Dose: Not Given Carvedilol (Coreg -) 3.125 mg PO BID [facility] Last Admin: 05/07/17 10:13 Dose: 3.125 mg Collagenase (Santyl -) 1 applic TP DAILY [facility] Last Admin: 05/07/17 10:07 Dose: 1 applic Docusate Sodium (Colace -) 300 mg PO HS [facility] Last Admin: 05/06/17 21:53 Dose: 300 mg Fentanyl (Sublimaze Injection -) 50 mcg IVPUSH [id number] PRN PRN Reason: PAIN Last Admin: 04/27/17 20:35 Dose: 50 mcg Ferrous Sulfate (Feosol -) 325 mg PO DAILY [facility] Last Admin: 05/07/17 10:06 Dose: 325 mg Gabapentin (Neurontin -) 100 mg PO BID [facility] Last Admin: 05/07/17 10:07 Dose: 100 mg Midodrine (Proamatine -) 10 mg PO TID-MID [facility] Last Admin: 05/07/17 10:20 Dose: 10 mg Ondansetron HCl (Zofran Injection) 4 mg IVPUSH Q6H PRN PRN Reason: NAUSEA AND/OR VOMITING Pantoprazole Sodium (Protonix -) 40 mg PO DAILY [facility] Last Admin: 05/07/17 10:06 Dose: 40 mg Quetiapine Fumarate (Seroquel -) 25 mg PO BID [facility] Last Admin: 05/07/17 10:07 Dose: 25 mg Rosuvastatin Calcium (Crestor -) 20 mg PO HS [facility] Last Admin: 05/06/17 21:54 Dose: 20 mg Sucralfate (Carafate Oral Suspension -) 0.5 gm PO BID [facility] Last Admin: 05/07/17 10:06 Dose: 0.5 gm - Objective Vital Signs: Vital Signs Temperature 97.9 F 05/07/17 10:24 Pulse Rate 97 H 05/07/17 10:24 Respiratory Rate 18 05/07/17 10:24 Blood Pressure 122/54 05/07/17 10:24 O2 Sat by Pulse Oximetry (%) 96 05/06/17 21:00 Constitutional: Yes: No Distress Neck: Yes: Supple Cardiovascular: Yes: Pulse Irregular Respiratory: Yes: Regular Gastrointestinal: Yes: Normal Bowel Sounds, Soft Extremities: Yes: Amputation (b/l AKA) Wound/Incision: Yes: [place] Intact (Lt AKA eliezer intact with mild erythema) Labs: CBC, BMP 05/07/17 06:10 05/07/17 06:10 INR, PTT INR 4.37 (0.82-1.09) H* 05/07/17 06:10 Problem List - Problems (1) ESRD (end stage renal disease) Code(s): N18.6 - END STAGE RENAL DISEASE (2) Atrial fibrillation Code(s): I48.91 - UNSPECIFIED ATRIAL FIBRILLATION Qualifiers: Atrial fibrillation type: persistent Qualified Code(s): I48.1 - Persistent atrial fibrillation (3) Critical lower limb ischemia Code(s): I99.8 - OTHER DISORDER OF CIRCULATORY SYSTEM (4) HLD (hyperlipidemia) Code(s): E78.5 - HYPERLIPIDEMIA, UNSPECIFIED Qualifiers: Hyperlipidemia type: pure hypercholesterolemia Qualified Code(s): E78.00 - Pure hypercholesterolemia, unspecified (5) HTN (hypertension) Code(s): I10 - ESSENTIAL (PRIMARY) HYPERTENSION Qualifiers: Hypertension type: essential hypertension Qualified Code(s): I10 - Essential (primary) hypertension (6) Open wnd foot-complicated Code(s): S91.309A - UNSPECIFIED OPEN WOUND, UNSPECIFIED FOOT, INITIAL ENCOUNTER (7) Peripheral arterial disease Code(s): I73.9 - PERIPHERAL VASCULAR DISEASE, UNSPECIFIED Assessment/Plan 77 y.o. male with ESRD, PVD s/p Rt AKA with recent nonhealing/infected Lt BKA now s/p AKA noted to have fever 3 days ago. Currently afebrile. - continue monitor off antibiotics - wound care to surgical site appears stable at this time
--- NOTE | 2017-05-07 15:09 | PN ---
Physical Exam: SUBJECTIVE: Patient seen and examined. No issues reported. OBJECTIVE: Vital Signs Period Temp Pulse Resp BP Sys/Coleman Pulse Ox Last 24 Hr 97.7 F-98.6 F 82-97 18-20 96-122/54-68 96 PE Neuro: alert, awake, cn 2-12 intact oriented to self Pulm: CTA CV: s1 s2 rrr no mrg Abd: s nt nd + bs Ext: b/l BKA, L knee with eliezer, no bleeding no erythema Laboratory Results - last 24 hr 05/07/17 05/07/17 05/07/17 06:10 06:10 06:10 WBC 4.2 RBC 3.85 L Hgb 10.4 L Hct 34.0 L MCV 88.4 MCH 27.1 MCHC 30.7 L RDW 18.4 H Plt Count 100 L MPV 7.9 Neutrophils % 60.7 Lymphocytes % 15.9 D Monocytes % 19.3 H Eosinophils % 3.2 Basophils % 0.9 PT with INR 49.40 H INR 4.37 H* Sodium 144 Potassium 3.8 Chloride 107 Carbon Dioxide 26 Anion Gap 11 BUN 60 H Creatinine 6.7 H Random Glucose 81 Calcium 7.9 L Active Medications Generic Name Dose Route Start Last Admin Trade Name Freq PRN Reason Stop Dose Admin Acetaminophen 650 mg 04/27/17 21:08 05/05/17 22:50 Tylenol - PO 650 mg Q6H PRN Administration FEVER OR PAIN Amino Acids 30 ml 04/28/17 08:00 05/07/17 10:21 Prosource No Carb Liquid Pkt PO 30 ml BID@0800,1730 [facility] Administration Bacitracin 1 applic 04/28/17 22:00 05/07/17 10:13 Bacitracin - TP 1 applic BID [facility] Administration Budesonide/Formoterol Fumarate 2 puff 04/27/17 22:00 05/07/17 10:08 Symbicort 80/4.5mcg - IH Not Given BID [facility] Carvedilol 3.125 mg 04/27/17 22:00 05/07/17 10:13 Coreg - PO 3.125 mg BID [facility] Administration Collagenase 1 applic 04/28/17 10:00 05/07/17 10:07 Santyl - TP 1 applic DAILY [facility] Administration Docusate Sodium 300 mg 04/27/17 22:00 05/06/17 21:53 Colace - PO 300 mg HS [facility] Administration Fentanyl 50 mcg 04/27/17 19:59 04/27/17 20:35 Sublimaze Injection - IVPUSH 50 mcg [id number] PRN Administration PAIN Ferrous Sulfate 325 mg 05/02/17 10:00 05/07/17 10:06 Feosol - PO 325 mg DAILY [facility] Administration Gabapentin 100 mg 04/27/17 22:00 05/07/17 10:07 Neurontin - PO 100 mg BID [facility] Administration Midodrine 10 mg 04/28/17 10:00 05/07/17 10:20 Proamatine - PO 10 mg TID-MID [facility] Administration Ondansetron HCl 4 mg 04/27/17 19:59 Zofran Injection IVPUSH Q6H PRN NAUSEA AND/OR VOMITING Pantoprazole Sodium 40 mg 04/30/17 10:00 05/07/17 10:06 Protonix - PO 40 mg DAILY [facility] Administration Quetiapine Fumarate 25 mg 04/27/17 22:00 05/07/17 10:07 Seroquel - PO 25 mg BID [facility] Administration Rosuvastatin Calcium 20 mg 04/27/17 22:00 05/06/17 21:54 Crestor - PO 20 mg HS [facility] Administration Sucralfate 0.5 gm 04/27/17 22:00 05/07/17 10:06 Carafate Oral Suspension - PO 0.5 gm BID [facility] Administration Assessment: 77 year old male with PMH significant for HTN, CAD, Afib, PVD, ESRD , anemia, COPD, GERD, anxiety, DVT, AAA-infrarenal, Hepatitis B, 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 Plan: 1. Hypotension/fever - Resolved, BC NGTD 2. Anemia - Hgb stable - S/p 2u PRBC with HD on 04/29, and 1u PRBC on 04/28 - Stool for occult blood positive, continue Protonix - Appreciate GI consult: no need for urgent EGD/colonoscopy now 3. ESRD - HD M,W,F - HD per Renal service 4. L BKA/PVD - Every other staple removed, remainder to removed in 1 week from 05/07 - AKA 04/27/17 - Cont gabapentin for pain 5. HTN/HLD/CAD - Cont home crestor, coreg 6. s/p fall - Head CT negative - Fall precautions 7. Afib, rate controlled - Decreasing slowly - INR supratherapeutic, continue to hold coumadin 8. Thrombocytopenia - present on previous admission, labile, monitor 9. GERD - protonix 10. DVT PPX - On Coumadin, INR supratherapeutic 11. Dispo: - Will need discharge to SNF once INR improved CODE STATUS: FULL CODE Visit type - Emergency Visit Emergency Visit: Yes ED Registration Date: 04/21/17 Care time: The patient presented to the Emergency Department on the above date and was hospitalized for further evaluation of their emergent condition. - New Patient This patient is new to me today: No - Critical Care Critical Care patient: No
--- NOTE | 2017-05-07 19:01 | PN ---
Progress Note (short form) - Note Progress Note: esrd s/p aka Current Medications Acetaminophen (Tylenol -) 650 mg PO Q6H PRN PRN Reason: FEVER OR PAIN Last Admin: 05/05/17 22:50 Dose: 650 mg Amino Acids (Prosource No Carb Liquid Pkt) 30 ml PO BID@0800,1730 [facility] Last Admin: 05/07/17 10:21 Dose: 30 ml Bacitracin (Bacitracin -) 1 applic TP BID [facility] Last Admin: 05/07/17 10:13 Dose: 1 applic Budesonide/Formoterol Fumarate (Symbicort 80/4.5mcg -) 2 puff IH BID [facility] Last Admin: 05/07/17 10:08 Dose: Not Given Carvedilol (Coreg -) 3.125 mg PO BID [facility] Last Admin: 05/07/17 10:13 Dose: 3.125 mg Collagenase (Santyl -) 1 applic TP DAILY [facility] Last Admin: 05/07/17 10:07 Dose: 1 applic Docusate Sodium (Colace -) 300 mg PO HS [facility] Last Admin: 05/06/17 21:53 Dose: 300 mg Fentanyl (Sublimaze Injection -) 50 mcg IVPUSH [id number] PRN PRN Reason: PAIN Last Admin: 04/27/17 20:35 Dose: 50 mcg Ferrous Sulfate (Feosol -) 325 mg PO DAILY [facility] Last Admin: 05/07/17 10:06 Dose: 325 mg Gabapentin (Neurontin -) 100 mg PO BID [facility] Last Admin: 05/07/17 10:07 Dose: 100 mg Midodrine (Proamatine -) 10 mg PO TID-MID [facility] Last Admin: 05/07/17 15:46 Dose: 10 mg Ondansetron HCl (Zofran Injection) 4 mg IVPUSH Q6H PRN PRN Reason: NAUSEA AND/OR VOMITING Pantoprazole Sodium (Protonix -) 40 mg PO DAILY [facility] Last Admin: 05/07/17 10:06 Dose: 40 mg Quetiapine Fumarate (Seroquel -) 25 mg PO BID [facility] Last Admin: 05/07/17 10:07 Dose: 25 mg Rosuvastatin Calcium (Crestor -) 20 mg PO HS [facility] Last Admin: 05/06/17 21:54 Dose: 20 mg Sucralfate (Carafate Oral Suspension -) 0.5 gm PO BID [facility] Last Admin: 05/07/17 10:06 Dose: 0.5 gm Last Vital Signs Temp Pulse Resp BP Pulse Ox 99.9 F H 84 24 101/65 96 05/07/17 18:00 05/07/17 18:00 05/07/17 18:00 05/07/17 18:00 05/07/17 09:00 CBC, BMP 05/07/17 06:10 05/07/17 06:10 for hd tomorrow
[2017-05-07] MEDS: DOCUSATE SODIUM 100 MG CAPSULE (FP) PO SCH (21:43)
[2017-05-07] MEDS: ROSUVASTATIN CA 20 MG TABLET (FP) PO SCH (21:44)
--- NOTE | 2017-05-08 13:42 | PN ---
Progress Note (short form) - Note Progress Note: Infectious Disease note: Pt currently in HD Tmax 99.9F - last night vitals stable at this time currently off antibiotics cont. monitor temps Problem List - Problems (1) ESRD (end stage renal disease) Code(s): N18.6 - END STAGE RENAL DISEASE (2) Atrial fibrillation Code(s): I48.91 - UNSPECIFIED ATRIAL FIBRILLATION Qualifiers: Atrial fibrillation type: persistent Qualified Code(s): I48.1 - Persistent atrial fibrillation (3) Critical lower limb ischemia Code(s): I99.8 - OTHER DISORDER OF CIRCULATORY SYSTEM (4) HLD (hyperlipidemia) Code(s): E78.5 - HYPERLIPIDEMIA, UNSPECIFIED Qualifiers: Hyperlipidemia type: pure hypercholesterolemia Qualified Code(s): E78.00 - Pure hypercholesterolemia, unspecified (5) HTN (hypertension) Code(s): I10 - ESSENTIAL (PRIMARY) HYPERTENSION Qualifiers: Hypertension type: essential hypertension Qualified Code(s): I10 - Essential (primary) hypertension (6) Open wnd foot-complicated Code(s): S91.309A - UNSPECIFIED OPEN WOUND, UNSPECIFIED FOOT, INITIAL ENCOUNTER (7) Peripheral arterial disease Code(s): I73.9 - PERIPHERAL VASCULAR DISEASE, UNSPECIFIED
[2017-05-08 13:48] LABS: INR 2.15 (0.82-1.09); PROTHROMBIN TIME (PATIENT) 24.3 SEC (9.98-11.88)
[2017-05-08] MEDS ORDERED: PT OWN MED DRAWER 7, Y5N ONE ×2 (14:28→20:38)
[2017-05-08] MEDS: BACITRACIN 15 GM TUBE TOPICAL OINTMENT TP SCH ×2 (14:31→22:07)
[2017-05-08] MEDS: CARVEDILOL 3.125 MG TABLET (FP) PO SCH ×2 (14:31→21:52)
[2017-05-08] MEDS: SUCRALFATE 1 GM/10 ML UNIT DOSE CUPS PO SCH ×2 (14:31→21:53)
[2017-05-08] MEDS: COLLAGENASE CLOSTRIDIUM HIST. 30 GRAMS TUBE TP SCH (14:33)
[2017-05-08] MEDS: MIDODRINE HCL 5 MG TABLET PO SCH ×3 (14:33→17:54)
[2017-05-08] MEDS: BUDESONIDE/FORMETEROL FUMARATE 80/4.5 mcg INHALER IH SCH ×2 (14:34→21:54)
[2017-05-08] MEDS: QUEtiapine FUMARATE 25 MG TABLET (FP) PO SCH ×2 (14:40→21:52)
[2017-05-08] MEDS: GABAPENTIN 100 MG CAPSULE (FP) PO SCH ×2 (14:41→21:53)
[2017-05-08] MEDS: FERROUS SO4 325 MG TABLET (FP) PO SCH (14:41)
[2017-05-08] MEDS: PANTOPRAZOLE 40 MG TABLET (FP) PO SCH (14:41)
[2017-05-08] MEDS: AMINO ACIDS/PROTEIN HYDROLYS 30 ML LIQUID.PKT PO SCH ×2 (14:41→17:44)
--- NOTE | 2017-05-08 14:46 | PN ---
Physical Exam: SUBJECTIVE: Patient seen and examined in HD. He is tolerating it well, he says he has no issues, some pain, he wants to walk. OBJECTIVE: Vital Signs Period Temp Pulse Resp BP Sys/Coleman Pulse Ox Last 24 Hr 97.7 F-99.9 F 60-90 18-24 84-120/40-94 96 PE Neuro: alert, awake, cn 2-12 intact oriented to self and his lack of legs Pulm: CTA CV: s1 s2 rrr no mrg Abd: s nt nd + bs Ext: b/l BKA, L knee with eliezer, no bleeding, mild medial drainage, Laboratory Results - last 24 hr 05/08/17 12:55 PT with INR 24.30 H INR 2.15 H D Active Medications Generic Name Dose Route Start Last Admin Trade Name Freq PRN Reason Stop Dose Admin Acetaminophen 650 mg 04/27/17 21:08 05/05/17 22:50 Tylenol - PO 650 mg Q6H PRN Administration FEVER OR PAIN Amino Acids 30 ml 04/28/17 08:00 05/08/17 14:41 Prosource No Carb Liquid Pkt PO Not Given BID@0800,1730 [facility] Bacitracin 1 applic 04/28/17 22:00 05/08/17 14:31 Bacitracin - TP 1 applic BID [facility] Administration Budesonide/Formoterol Fumarate 2 puff 04/27/17 22:00 05/08/17 14:34 Symbicort 80/4.5mcg - IH Not Given BID [facility] Carvedilol 3.125 mg 04/27/17 22:00 05/08/17 14:31 Coreg - PO 3.125 mg BID [facility] Administration Collagenase 1 applic 04/28/17 10:00 05/08/17 14:33 Santyl - TP 1 applic DAILY [facility] Administration Docusate Sodium 300 mg 04/27/17 22:00 05/07/17 21:43 Colace - PO 300 mg HS [facility] Administration Ferrous Sulfate 325 mg 05/02/17 10:00 05/08/17 14:41 Feosol - PO 325 mg DAILY [facility] Administration Gabapentin 100 mg 04/27/17 22:00 05/08/17 14:41 Neurontin - PO 100 mg BID [facility] Administration Midodrine 10 mg 04/28/17 10:00 05/08/17 14:33 Proamatine - PO 10 mg TID-MID [facility] Administration Ondansetron HCl 4 mg 04/27/17 19:59 Zofran Injection IVPUSH Q6H PRN NAUSEA AND/OR VOMITING Pantoprazole Sodium 40 mg 04/30/17 10:00 05/08/17 14:41 Protonix - PO 40 mg DAILY [facility] Administration Quetiapine Fumarate 25 mg 04/27/17 22:00 05/08/17 14:40 Seroquel - PO 25 mg BID [facility] Administration Rosuvastatin Calcium 20 mg 04/27/17 22:00 05/07/17 21:44 Crestor - PO 20 mg HS [facility] Administration Sucralfate 0.5 gm 04/27/17 22:00 05/08/17 14:31 Carafate Oral Suspension - PO 0.5 gm BID [facility] Administration Assessment: 77 year old male with PMH significant for HTN, CAD, Afib, PVD, ESRD , anemia, COPD, GERD, anxiety, DVT, AAA-infrarenal, Hepatitis B, 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 Plan: 1. Hypotension/fever - Resolved, BC NGTD 2. Anemia - Hgb stable - S/p 2u PRBC with HD on 04/29, and 1u PRBC on 04/28 - Stool for occult blood positive, continue Protonix - Appreciate GI consult: no need for urgent EGD/colonoscopy now 3. ESRD - HD M,W,F - HD per Renal service 4. L BKA/PVD - Every other staple removed, remainder to removed in 1 week from 05/07 - AKA 04/27/17 - Cont gabapentin 5. HTN/HLD/CAD - Cont home crestor, coreg 6. s/p fall - Head CT negative - Fall precautions 7. Afib, rate controlled - Therapeutic today - Dose Coumadin 1mg tonight 8. Thrombocytopenia - present on previous admission, labile, monitor 9. GERD - protonix 10. DVT PPX - On Coumadin, INR supratherapeutic 11. Dispo: - Can DC SNF Tuesday CODE STATUS: FULL CODE Visit type - Emergency Visit Emergency Visit: Yes ED Registration Date: 04/21/17 Care time: The patient presented to the Emergency Department on the above date and was hospitalized for further evaluation of their emergent condition. - New Patient This patient is new to me today: No - Critical Care Critical Care patient: No
[2017-05-08] MEDS: WARFARIN NA 1 MG TABLET (FP) PO SCH (17:44)
--- NOTE | 2017-05-08 20:21 | PN ---
Progress Note (short form) - Note Progress Note: esrd s/p aka Current Medications Acetaminophen (Tylenol -) 650 mg PO Q6H PRN PRN Reason: FEVER OR PAIN Last Admin: 05/05/17 22:50 Dose: 650 mg Amino Acids (Prosource No Carb Liquid Pkt) 30 ml PO BID@0800,1730 [facility] Last Admin: 05/08/17 17:44 Dose: 30 ml Bacitracin (Bacitracin -) 1 applic TP BID [facility] Last Admin: 05/08/17 14:31 Dose: 1 applic Budesonide/Formoterol Fumarate (Symbicort 80/4.5mcg -) 2 puff IH BID [facility] Last Admin: 05/08/17 14:34 Dose: Not Given Carvedilol (Coreg -) 3.125 mg PO BID [facility] Last Admin: 05/08/17 14:31 Dose: 3.125 mg Collagenase (Santyl -) 1 applic TP DAILY [facility] Last Admin: 05/08/17 14:33 Dose: 1 applic Docusate Sodium (Colace -) 300 mg PO HS [facility] Last Admin: 05/07/17 21:43 Dose: 300 mg Ferrous Sulfate (Feosol -) 325 mg PO DAILY [facility] Last Admin: 05/08/17 14:41 Dose: 325 mg Gabapentin (Neurontin -) 100 mg PO BID [facility] Last Admin: 05/08/17 14:41 Dose: 100 mg Midodrine (Proamatine -) 10 mg PO TID-MID [facility] Last Admin: 05/08/17 17:54 Dose: 10 mg Ondansetron HCl (Zofran Injection) 4 mg IVPUSH Q6H PRN PRN Reason: NAUSEA AND/OR VOMITING Pantoprazole Sodium (Protonix -) 40 mg PO DAILY [facility] Last Admin: 05/08/17 14:41 Dose: 40 mg Quetiapine Fumarate (Seroquel -) 25 mg PO BID [facility] Last Admin: 05/08/17 14:40 Dose: 25 mg Rosuvastatin Calcium (Crestor -) 20 mg PO HS [facility] Last Admin: 05/07/17 21:44 Dose: 20 mg Sucralfate (Carafate Oral Suspension -) 0.5 gm PO BID [facility] Last Admin: 05/08/17 14:31 Dose: 0.5 gm Warfarin Sodium (Coumadin -) 1 mg PO DAILY@1800 [facility] Last Admin: 05/08/17 17:44 Dose: 1 mg Last Vital Signs Temp Pulse Resp BP Pulse Ox 98.2 F 91 H 18 114/70 96 05/08/17 09:20 05/08/17 14:00 05/08/17 14:00 05/08/17 14:00 05/07/17 21:00 lungs clear heart reg rate and rhythm abd soft nontender ext no edema CBC, BMP 05/07/17 06:10 05/07/17 06:10 esrd pvd s/p aka x 2 for hd tomorrow
[2017-05-08] MEDS: DOCUSATE SODIUM 100 MG CAPSULE (FP) PO SCH (21:53)
[2017-05-08] MEDS: ROSUVASTATIN CA 20 MG TABLET (FP) PO SCH (21:53)
[2017-05-09 08:04] LABS: INR 2.35 (0.82-1.09); PROTHROMBIN TIME (PATIENT) 26.6 SEC (9.98-11.88)
[2017-05-09] MEDS: AMINO ACIDS/PROTEIN HYDROLYS 30 ML LIQUID.PKT PO SCH ×2 (09:00→18:08)
--- NOTE | 2017-05-09 10:27 | PN ---
Progress Note, Physician History of Present Illness: stable no issues - Current Medication List Current Medications: Active Medications Acetaminophen (Tylenol -) 650 mg PO Q6H PRN PRN Reason: FEVER OR PAIN Last Admin: 05/05/17 22:50 Dose: 650 mg Amino Acids (Prosource No Carb Liquid Pkt) 30 ml PO BID@0800,1730 [facility] Last Admin: 05/08/17 17:44 Dose: 30 ml Bacitracin (Bacitracin -) 1 applic TP BID [facility] Last Admin: 05/08/17 22:07 Dose: 1 applic Budesonide/Formoterol Fumarate (Symbicort 80/4.5mcg -) 2 puff IH BID [facility] Last Admin: 05/08/17 21:54 Dose: Not Given Carvedilol (Coreg -) 3.125 mg PO BID [facility] Last Admin: 05/08/17 21:52 Dose: 3.125 mg Collagenase (Santyl -) 1 applic TP DAILY [facility] Last Admin: 05/08/17 14:33 Dose: 1 applic Docusate Sodium (Colace -) 300 mg PO HS [facility] Last Admin: 05/08/17 21:53 Dose: 300 mg Ferrous Sulfate (Feosol -) 325 mg PO DAILY [facility] Last Admin: 05/08/17 14:41 Dose: 325 mg Gabapentin (Neurontin -) 100 mg PO BID [facility] Last Admin: 05/08/17 21:53 Dose: 100 mg Midodrine (Proamatine -) 10 mg PO TID-MID [facility] Last Admin: 05/08/17 17:54 Dose: 10 mg Ondansetron HCl (Zofran Injection) 4 mg IVPUSH Q6H PRN PRN Reason: NAUSEA AND/OR VOMITING Pantoprazole Sodium (Protonix -) 40 mg PO DAILY [facility] Last Admin: 05/08/17 14:41 Dose: 40 mg Quetiapine Fumarate (Seroquel -) 25 mg PO BID [facility] Last Admin: 05/08/17 21:52 Dose: 25 mg Rosuvastatin Calcium (Crestor -) 20 mg PO HS [facility] Last Admin: 05/08/17 21:53 Dose: 20 mg Sucralfate (Carafate Oral Suspension -) 0.5 gm PO BID [facility] Last Admin: 05/08/17 21:53 Dose: 0.5 gm Warfarin Sodium (Coumadin -) 1 mg PO DAILY@1800 [facility] Last Admin: 05/08/17 17:44 Dose: 1 mg - Objective Vital Signs: Vital Signs Temperature 98.8 F 05/08/17 22:00 Pulse Rate 60 05/08/17 22:00 Respiratory Rate 20 05/08/17 22:00 Blood Pressure 118/56 05/08/17 22:00 O2 Sat by Pulse Oximetry (%) 94 L 05/08/17 21:00 Constitutional: Yes: No Distress, Calm Cardiovascular: Yes: Pulse Irregular Respiratory: Yes: Regular, CTA Bilaterally Gastrointestinal: Yes: Normal Bowel Sounds, Soft Extremities: Yes: Amputation, Other Wound/Incision: Yes: Dressing Dry and Intact Neurological: Yes: Alert, Other Labs: CBC, BMP 05/07/17 06:10 05/07/17 06:10 INR, PTT INR 2.35 (0.82-1.09) H 05/09/17 06:00 Assessment/Plan Problem List - Problems (1) ESRD (end stage renal disease) Code(s): N18.6 - END STAGE RENAL DISEASE (2) Atrial fibrillation Code(s): I48.91 - UNSPECIFIED ATRIAL FIBRILLATION Qualifiers: Atrial fibrillation type: persistent Qualified Code(s): I48.1 - Persistent atrial fibrillation (3) Critical lower limb ischemia Code(s): I99.8 - OTHER DISORDER OF CIRCULATORY SYSTEM (4) HLD (hyperlipidemia) Code(s): E78.5 - HYPERLIPIDEMIA, UNSPECIFIED Qualifiers: Hyperlipidemia type: pure hypercholesterolemia Qualified Code(s): E78.00 - Pure hypercholesterolemia, unspecified (5) HTN (hypertension) Code(s): I10 - ESSENTIAL (PRIMARY) HYPERTENSION Qualifiers: Hypertension type: essential hypertension Qualified Code(s): I10 - Essential (primary) hypertension (6) Open wnd foot-complicated Code(s): S91.309A - UNSPECIFIED OPEN WOUND, UNSPECIFIED FOOT, INITIAL ENCOUNTER (7) Peripheral arterial disease Code(s): I73.9 - PERIPHERAL VASCULAR DISEASE, UNSPECIFIED patient with aka plan continue current mgmt rest as per primary continue to monitor off of abx rest as per primary team
--- NOTE | 2017-05-09 10:41 | PN ---
Physical Exam: SUBJECTIVE: Patient seen and examined. No complaints, conversational. OBJECTIVE: Vital Signs Period Temp Pulse Resp BP Sys/Coleman Pulse Ox Last 24 Hr 97.4 F-98.8 F 60-92 18-20 86-120/40-94 94 PE Neuro: alert, awake, cn 2-12 intact oriented to self and his lack of legs Pulm: CTA CV: s1 s2 rrr no mrg Abd: s nt nd + bs Ext: b/l BKA, L knee with eliezer, no bleeding, mild medial drainage Laboratory Results - last 24 hr 05/08/17 05/09/17 12:55 06:00 PT with INR 24.30 H 26.60 H INR 2.15 H D 2.35 H Active Medications Generic Name Dose Route Start Last Admin Trade Name Freq PRN Reason Stop Dose Admin Acetaminophen 650 mg 04/27/17 21:08 05/05/17 22:50 Tylenol - PO 650 mg Q6H PRN Administration FEVER OR PAIN Amino Acids 30 ml 04/28/17 08:00 05/08/17 17:44 Prosource No Carb Liquid Pkt PO 30 ml BID@0800,1730 [facility] Administration Bacitracin 1 applic 04/28/17 22:00 05/08/17 22:07 Bacitracin - TP 1 applic BID [facility] Administration Budesonide/Formoterol Fumarate 2 puff 04/27/17 22:00 05/08/17 21:54 Symbicort 80/4.5mcg - IH Not Given BID [facility] Carvedilol 3.125 mg 04/27/17 22:00 05/08/17 21:52 Coreg - PO 3.125 mg BID [facility] Administration Collagenase 1 applic 04/28/17 10:00 05/08/17 14:33 Santyl - TP 1 applic DAILY [facility] Administration Docusate Sodium 300 mg 04/27/17 22:00 05/08/17 21:53 Colace - PO 300 mg HS [facility] Administration Ferrous Sulfate 325 mg 05/02/17 10:00 05/08/17 14:41 Feosol - PO 325 mg DAILY [facility] Administration Gabapentin 100 mg 04/27/17 22:00 05/08/17 21:53 Neurontin - PO 100 mg BID [facility] Administration Midodrine 10 mg 04/28/17 10:00 05/08/17 17:54 Proamatine - PO 10 mg TID-MID [facility] Administration Ondansetron HCl 4 mg 04/27/17 19:59 Zofran Injection IVPUSH Q6H PRN NAUSEA AND/OR VOMITING Pantoprazole Sodium 40 mg 04/30/17 10:00 05/08/17 14:41 Protonix - PO 40 mg DAILY [facility] Administration Quetiapine Fumarate 25 mg 04/27/17 22:00 05/08/17 21:52 Seroquel - PO 25 mg BID [facility] Administration Rosuvastatin Calcium 20 mg 04/27/17 22:00 05/08/17 21:53 Crestor - PO 20 mg HS [facility] Administration Sucralfate 0.5 gm 04/27/17 22:00 05/08/17 21:53 Carafate Oral Suspension - PO 0.5 gm BID [facility] Administration Warfarin Sodium 1 mg 05/08/17 18:00 05/08/17 17:44 Coumadin - PO 1 mg DAILY@1800 [facility] Administration Assessment: 77 year old male with PMH significant for HTN, CAD, Afib, PVD, ESRD , anemia, COPD, GERD, anxiety, DVT, AAA-infrarenal, Hepatitis B, 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 Plan: 1. Hypotension/fever - Resolved, BC NGTD 2. Anemia - Hgb stable - S/p 2u PRBC with HD on 04/29, and 1u PRBC on 04/28 - Stool for occult blood positive, continue Protonix - Appreciate GI consult: no need for urgent EGD/colonoscopy now 3. ESRD - HD M,W,F - HD per Renal service 4. L BKA/PVD - Every other staple removed, remainder to removed in 1 week from 05/07 - AKA 04/27/17 - Cont gabapentin 5. HTN/HLD/CAD - Cont home crestor, coreg 6. s/p fall - Head CT negative - Fall precautions 7. Afib, rate controlled - Remaints therapeutic - Continue Coumadin 1mg 8. Thrombocytopenia - present on previous admission, labile, monitor 9. GERD - protonix 10. DVT PPX - On Coumadin, INR supratherapeutic 11. Dispo: - Can DC SNF Tomorrow after HD CODE STATUS: FULL CODE Visit type - Emergency Visit Emergency Visit: Yes ED Registration Date: 04/21/17 Care time: The patient presented to the Emergency Department on the above date and was hospitalized for further evaluation of their emergent condition. - New Patient This patient is new to me today: No - Critical Care Critical Care patient: No
[2017-05-09] MEDS: BUDESONIDE/FORMETEROL FUMARATE 80/4.5 mcg INHALER IH SCH ×2 (10:42→21:29)
[2017-05-09] MEDS: SUCRALFATE 1 GM/10 ML UNIT DOSE CUPS PO SCH ×2 (10:42→21:28)
[2017-05-09] MEDS: PANTOPRAZOLE 40 MG TABLET (FP) PO SCH (10:43)
[2017-05-09] MEDS: FERROUS SO4 325 MG TABLET (FP) PO SCH (10:43)
[2017-05-09] MEDS: CARVEDILOL 3.125 MG TABLET (FP) PO SCH ×2 (10:43→21:28)
[2017-05-09] MEDS: GABAPENTIN 100 MG CAPSULE (FP) PO SCH ×2 (10:44→21:28)
[2017-05-09] MEDS: BACITRACIN 15 GM TUBE TOPICAL OINTMENT TP SCH ×2 (10:44→21:27)
[2017-05-09] MEDS: MIDODRINE HCL 5 MG TABLET PO SCH ×3 (10:45→18:09)
[2017-05-09] MEDS: QUEtiapine FUMARATE 25 MG TABLET (FP) PO SCH ×2 (10:46→21:29)
[2017-05-09] MEDS: COLLAGENASE CLOSTRIDIUM HIST. 30 GRAMS TUBE TP SCH (10:47)
[2017-05-09] MEDS: WARFARIN NA 1 MG TABLET (FP) PO SCH (18:08)
--- NOTE | 2017-05-09 19:04 | PN ---
Progress Note (short form) - Note Progress Note: esrd s/p aka Active Medications Acetaminophen (Tylenol -) 650 mg PO Q6H PRN PRN Reason: FEVER OR PAIN Last Admin: 05/05/17 22:50 Dose: 650 mg Amino Acids (Prosource No Carb Liquid Pkt) 30 ml PO BID@0800,1730 REPLACED BY [facility] Last Admin: 05/09/17 18:08 Dose: 30 ml Bacitracin (Bacitracin -) 1 applic TP BID REPLACED BY [facility] Last Admin: 05/09/17 10:44 Dose: 1 applic Budesonide/Formoterol Fumarate (Symbicort 80/4.5mcg -) 2 puff IH BID REPLACED BY [facility] Last Admin: 05/09/17 10:42 Dose: 2 puff Carvedilol (Coreg -) 3.125 mg PO BID REPLACED BY [facility] Last Admin: 05/09/17 10:43 Dose: 3.125 mg Collagenase (Santyl -) 1 applic TP DAILY REPLACED BY [facility] Last Admin: 05/09/17 10:47 Dose: Not Given Docusate Sodium (Colace -) 300 mg PO HS REPLACED BY [facility] Last Admin: 05/08/17 21:53 Dose: 300 mg Ferrous Sulfate (Feosol -) 325 mg PO DAILY REPLACED BY [facility] Last Admin: 05/09/17 10:43 Dose: 325 mg Gabapentin (Neurontin -) 100 mg PO BID REPLACED BY [facility] Last Admin: 05/09/17 10:44 Dose: 100 mg Midodrine (Proamatine -) 10 mg PO TID-MID REPLACED BY [facility] Last Admin: 05/09/17 18:09 Dose: 10 mg Ondansetron HCl (Zofran Injection) 4 mg IVPUSH Q6H PRN PRN Reason: NAUSEA AND/OR VOMITING Pantoprazole Sodium (Protonix -) 40 mg PO DAILY REPLACED BY [facility] Last Admin: 05/09/17 10:43 Dose: 40 mg Quetiapine Fumarate (Seroquel -) 25 mg PO BID REPLACED BY [facility] Last Admin: 05/09/17 10:46 Dose: 25 mg Rosuvastatin Calcium (Crestor -) 20 mg PO HS REPLACED BY [facility] Last Admin: 05/08/17 21:53 Dose: 20 mg Sucralfate (Carafate Oral Suspension -) 0.5 gm PO BID REPLACED BY [facility] Last Admin: 05/09/17 10:42 Dose: 0.5 gm Warfarin Sodium (Coumadin -) 1 mg PO DAILY@1800 REPLACED BY [facility] Last Admin: 05/09/17 18:08 Dose: 1 mg Last Vital Signs Temp Pulse Resp BP Pulse Ox 98.6 F 78 16 105/57 94 L 05/09/17 13:17 05/09/17 13:17 05/09/17 13:17 05/09/17 13:17 05/09/17 09:00 lungs clear heart reg rate and rhythm abd soft nontender ext no edema CBC, BMP 05/07/17 06:10 05/07/17 06:10 CBC, BMP 05/07/17 06:10 05/07/17 06:10 esrd pvd s/p aka x 2
[2017-05-09] MEDS: DOCUSATE SODIUM 100 MG CAPSULE (FP) PO SCH (21:28)
[2017-05-09] MEDS: ROSUVASTATIN CA 20 MG TABLET (FP) PO SCH (21:29)
[2017-05-09] MEDS: ACETAMINOPHEN 325 MG TABLET (FP) PO PRN (21:31)
[2017-05-10 08:08] LABS: BASO % 1.2 % (0-2.0); EOS % 2.7 % (0-4.5); HEMATOCRIT 38.5 % (35.4-49); HEMOGLOBIN 11.6 GM/dL (11.7-16.9); MCH 26.8 pg (25.7-33.7); MCHC 30.2 g/dl (32.0-35.9); MEAN CELL VOLUME 88.7 fl (80-96); MEAN PLT VOLUME 7.8 fl (7.5-11.1); MONO % 8.9 % (3.8-10.2); NEUT % 76.2 % (42.8-82.8); PLATELET COUNT 91 K/MM3 (134-434); RBC 4.34 M/mm3 (4.00-5.60); RDW 18.6 % (11.9-15.9); WHITE BLOOD COUNT 4.9 K/mm3 (4.0-10.0)
[2017-05-10 08:10] LABS: INR 1.99 (0.82-1.09); PROTHROMBIN TIME (PATIENT) 22.5 SEC (9.98-11.88)
[2017-05-10] MEDS: AMINO ACIDS/PROTEIN HYDROLYS 30 ML LIQUID.PKT PO SCH ×2 (08:28→17:31)
[2017-05-10 08:51] LABS: ALBUMIN 2.1 g/dl (3.4-5.0); ANION GAP 13 (8-16); BILIRUBIN,TOTAL 0.6 mg/dL (0.2-1.0); BLOOD UREA NITROGEN 59 mg/dL (7-18); CALCIUM 8.3 mg/dL (8.5-10.1); CHLORIDE 104 mmol/L (98-107); CO2 26 mmol/L (21-32); CREATININE 6.3 mg/dL (0.7-1.3); GLUCOSE,RANDOM 67 mg/dL (74-106); POTASSIUM 4.4 mmol/L (3.5-5.1); SGOT/AST 13 U/L (15-37); SGPT/ALT 7 U/L (12-78); SODIUM 143 mmol/L (136-145); TOT PROT 5.3 g/dl (6.4-8.2)
[2017-05-10 08:52] LABS: ALK PHOS 217 U/L (45-117)
[2017-05-10] MEDS ORDERED: PT OWN MED DRAWER 7, Y5N ONE ×3 (09:10→17:29)
[2017-05-10] MEDS: BACITRACIN 15 GM TUBE TOPICAL OINTMENT TP SCH ×2 (09:11→22:13)
[2017-05-10] MEDS: SUCRALFATE 1 GM/10 ML UNIT DOSE CUPS PO SCH ×2 (09:11→22:11)
[2017-05-10] MEDS: FERROUS SO4 325 MG TABLET (FP) PO SCH (09:13)
[2017-05-10] MEDS: MIDODRINE HCL 5 MG TABLET PO SCH ×3 (09:13→17:31)
[2017-05-10] MEDS: GABAPENTIN 100 MG CAPSULE (FP) PO SCH ×2 (09:13→22:12)
[2017-05-10] MEDS: PANTOPRAZOLE 40 MG TABLET (FP) PO SCH (09:14)
[2017-05-10] MEDS: QUEtiapine FUMARATE 25 MG TABLET (FP) PO SCH ×2 (09:15→22:14)
[2017-05-10] MEDS: BUDESONIDE/FORMETEROL FUMARATE 80/4.5 mcg INHALER IH SCH ×2 (09:15→22:14)
[2017-05-10] MEDS: CARVEDILOL 3.125 MG TABLET (FP) PO SCH ×2 (10:10→22:13)
--- NOTE | 2017-05-10 13:54 | PN ---
Progress Note, Physician History of Present Illness: stable no issues - Current Medication List Current Medications: Active Medications Acetaminophen (Tylenol -) 650 mg PO Q6H PRN PRN Reason: FEVER OR PAIN Last Admin: 05/09/17 21:31 Dose: 650 mg Amino Acids (Prosource No Carb Liquid Pkt) 30 ml PO BID@0800,1730 [facility] Last Admin: 05/10/17 08:28 Dose: 30 ml Bacitracin (Bacitracin -) 1 applic TP BID [facility] Last Admin: 05/10/17 09:11 Dose: 1 applic Budesonide/Formoterol Fumarate (Symbicort 80/4.5mcg -) 2 puff IH BID [facility] Last Admin: 05/10/17 09:15 Dose: Not Given Carvedilol (Coreg -) 3.125 mg PO BID [facility] Last Admin: 05/10/17 10:10 Dose: 3.125 mg Docusate Sodium (Colace -) 300 mg PO HS [facility] Last Admin: 05/09/17 21:28 Dose: 300 mg Ferrous Sulfate (Feosol -) 325 mg PO DAILY [facility] Last Admin: 05/10/17 09:13 Dose: 325 mg Gabapentin (Neurontin -) 100 mg PO BID [facility] Last Admin: 05/10/17 09:13 Dose: 100 mg Midodrine (Proamatine -) 10 mg PO TID-MID [facility] Last Admin: 05/10/17 09:13 Dose: 10 mg Ondansetron HCl (Zofran Injection) 4 mg IVPUSH Q6H PRN PRN Reason: NAUSEA AND/OR VOMITING Pantoprazole Sodium (Protonix -) 40 mg PO DAILY [facility] Last Admin: 05/10/17 09:14 Dose: 40 mg Quetiapine Fumarate (Seroquel -) 25 mg PO BID [facility] Last Admin: 05/10/17 09:15 Dose: 25 mg Rosuvastatin Calcium (Crestor -) 20 mg PO HS [facility] Last Admin: 05/09/17 21:29 Dose: 20 mg Sucralfate (Carafate Oral Suspension -) 0.5 gm PO BID [facility] Last Admin: 05/10/17 09:11 Dose: 0.5 gm Warfarin Sodium (Coumadin -) 1 mg PO DAILY@1800 [facility] Last Admin: 05/09/17 18:08 Dose: 1 mg - Objective Vital Signs: Vital Signs Temperature 97.7 F 12/26/17 09:00 Pulse Rate 74 05/10/17 09:00 Respiratory Rate 18 05/10/17 09:00 Blood Pressure 99/59 05/10/17 09:00 O2 Sat by Pulse Oximetry (%) 96 05/10/17 10:00 Constitutional: Yes: No Distress, Calm Cardiovascular: Yes: Regular Rate and Rhythm Respiratory: Yes: Regular, CTA Bilaterally Gastrointestinal: Yes: Normal Bowel Sounds, Soft Musculoskeletal: Yes: Other Extremities: Yes: Amputation Neurological: Yes: Alert, Other Psychiatric: Yes: Other Labs: CBC, BMP 05/10/17 07:00 05/10/17 07:00 INR, PTT INR 1.99 (0.82-1.09) H 05/10/17 06:30 Assessment/Plan Problem List - Problems (1) ESRD (end stage renal disease) Code(s): N18.6 - END STAGE RENAL DISEASE (2) Atrial fibrillation Code(s): I48.91 - UNSPECIFIED ATRIAL FIBRILLATION Qualifiers: Atrial fibrillation type: persistent Qualified Code(s): I48.1 - Persistent atrial fibrillation (3) Critical lower limb ischemia Code(s): I99.8 - OTHER DISORDER OF CIRCULATORY SYSTEM (4) HLD (hyperlipidemia) Code(s): E78.5 - HYPERLIPIDEMIA, UNSPECIFIED Qualifiers: Hyperlipidemia type: pure hypercholesterolemia Qualified Code(s): E78.00 - Pure hypercholesterolemia, unspecified (5) HTN (hypertension) Code(s): I10 - ESSENTIAL (PRIMARY) HYPERTENSION Qualifiers: Hypertension type: essential hypertension Qualified Code(s): I10 - Essential (primary) hypertension (6) Open wnd foot-complicated Code(s): S91.309A - UNSPECIFIED OPEN WOUND, UNSPECIFIED FOOT, INITIAL ENCOUNTER (7) Peripheral arterial disease Code(s): I73.9 - PERIPHERAL VASCULAR DISEASE, UNSPECIFIED patient with aka plan continue current mgmt rest as per primary continue to monitor off of abx rest as per primary team please physio
[2017-05-10] MEDS ORDERED: FUROSEMIDE 40 MG/4 ML INJECTABLE VIAL ONE (14:56)
--- NOTE | 2017-05-10 15:13 | PN ---
Physical Exam: SUBJECTIVE: Patient seen and examined OBJECTIVE: Vital Signs Period Temp Pulse Resp BP Sys/Coleman Pulse Ox Last 24 Hr 97.7 F-98.6 F 74-88 18-20 88-108/44-60 94-96 GENERAL: The patient is awake, cachectic HEAD: Normal with no signs of trauma. EYES: PERRL, extraocular movements intact, sclera anicteric, conjunctiva clear. No ptosis. ENT: Ears normal, nares patent, oropharynx clear without exudates, moist mucous membranes. NECK: Trachea midline, full range of motion, supple. LUNGS: Breath sounds equal, clear to auscultation bilaterally, no wheezes ABDOMEN: Soft, non-tender, nondistended, normoactive bowel sounds, no guarding, no rebound, no hepatosplenomegaly, no masses. EXTREMITIES: b/l BKA, L knee with eliezer, no bleeding, mild sero sang drainage , no odor Laboratory Results - last 24 hr 05/10/17 05/10/17 05/10/17 06:30 07:00 07:00 WBC 4.9 RBC 4.34 Hgb 11.6 L D Hct 38.5 MCV 88.7 MCH 26.8 MCHC 30.2 L RDW 18.6 H Plt Count 91 L MPV 7.8 Neutrophils % 76.2 D Lymphocytes % 11.0 D Monocytes % 8.9 Eosinophils % 2.7 Basophils % 1.2 PT with INR 22.50 H INR 1.99 H Sodium 143 Potassium 4.4 Chloride 104 Carbon Dioxide 26 Anion Gap 13 BUN 59 H Creatinine 6.3 H Creat Clearance w eGFR 8.69 Random Glucose 67 L Calcium 8.3 L Total Bilirubin 0.6 AST 13 L D ALT 7 L D Alkaline Phosphatase 217 H D Total Protein 5.3 L D Albumin 2.1 L Active Medications Generic Name Dose Route Start Last Admin Trade Name Freq PRN Reason Stop Dose Admin Acetaminophen 650 mg 04/27/17 21:08 05/09/17 21:31 Tylenol - PO 650 mg Q6H PRN Administration FEVER OR PAIN Amino Acids 30 ml 04/28/17 08:00 05/10/17 08:28 Prosource No Carb Liquid Pkt PO 30 ml BID@0800,1730 [facility] Administration Bacitracin 1 applic 04/28/17 22:00 05/10/17 09:11 Bacitracin - TP 1 applic BID [facility] Administration Budesonide/Formoterol Fumarate 2 puff 04/27/17 22:00 05/10/17 09:15 Symbicort 80/4.5mcg - IH Not Given BID [facility] Carvedilol 3.125 mg 04/27/17 22:00 05/10/17 10:10 Coreg - PO 3.125 mg BID [facility] Administration Docusate Sodium 300 mg 04/27/17 22:00 05/09/17 21:28 Colace - PO 300 mg HS [facility] Administration Ferrous Sulfate 325 mg 05/02/17 10:00 05/10/17 09:13 Feosol - PO 325 mg DAILY [facility] Administration Gabapentin 100 mg 04/27/17 22:00 05/10/17 09:13 Neurontin - PO 100 mg BID [facility] Administration Midodrine 10 mg 04/28/17 10:00 05/10/17 14:02 Proamatine - PO 10 mg TID-MID [facility] Administration Ondansetron HCl 4 mg 04/27/17 19:59 Zofran Injection IVPUSH Q6H PRN NAUSEA AND/OR VOMITING Pantoprazole Sodium 40 mg 04/30/17 10:00 05/10/17 09:14 Protonix - PO 40 mg DAILY [facility] Administration Quetiapine Fumarate 25 mg 04/27/17 22:00 05/10/17 09:15 Seroquel - PO 25 mg BID [facility] Administration Rosuvastatin Calcium 20 mg 04/27/17 22:00 05/09/17 21:29 Crestor - PO 20 mg HS [facility] Administration Sucralfate 0.5 gm 04/27/17 22:00 05/10/17 09:11 Carafate Oral Suspension - PO 0.5 gm BID [facility] Administration Warfarin Sodium 1 mg 05/08/17 18:00 05/09/17 18:08 Coumadin - PO 1 mg DAILY@1800 [facility] Administration ASSESSMENT/PLAN: Patient is a 77 year old male with a significant past medical history of ESRD HD , atrial fib, hypertension, DVT, right AKA, s/p left 2nd digit amputation lower extremity. He presented to the ED on 04/21/2017 after sustaining a fall at the nursing facility he was discharged to. He was recently here between 2016 and 04/18/2017 for critical ischemia of left lower extremity. Patient is s/ p a left BKA on 03/31/2017 for septic left foot/leg. 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
[2017-05-10] MEDS: DOCUSATE SODIUM 100 MG CAPSULE (FP) PO SCH (22:11)
[2017-05-10] MEDS: WARFARIN NA 1 MG TABLET (FP) PO SCH (22:12)
[2017-05-10] MEDS: ROSUVASTATIN CA 20 MG TABLET (FP) PO SCH (22:13)
--- NOTE | 2017-05-11 00:30 | PN ---
Progress Note (short form) - Note Progress Note: esrd s/p aka Current Medications Acetaminophen (Tylenol -) 650 mg PO Q6H PRN PRN Reason: FEVER OR PAIN Last Admin: 05/09/17 21:31 Dose: 650 mg Amino Acids (Prosource No Carb Liquid Pkt) 30 ml PO BID@0800,1730 [facility] Last Admin: 05/10/17 17:31 Dose: 30 ml Bacitracin (Bacitracin -) 1 applic TP BID [facility] Last Admin: 05/10/17 22:13 Dose: 1 applic Budesonide/Formoterol Fumarate (Symbicort 80/4.5mcg -) 2 puff IH BID [facility] Last Admin: 05/10/17 22:14 Dose: Not Given Carvedilol (Coreg -) 3.125 mg PO BID [facility] Last Admin: 05/10/17 22:13 Dose: 3.125 mg Docusate Sodium (Colace -) 300 mg PO HS [facility] Last Admin: 05/10/17 22:11 Dose: 300 mg Ferrous Sulfate (Feosol -) 325 mg PO DAILY [facility] Last Admin: 05/10/17 09:13 Dose: 325 mg Gabapentin (Neurontin -) 100 mg PO BID [facility] Last Admin: 05/10/17 22:12 Dose: 100 mg Midodrine (Proamatine -) 10 mg PO TID-MID [facility] Last Admin: 05/10/17 17:31 Dose: 10 mg Ondansetron HCl (Zofran Injection) 4 mg IVPUSH Q6H PRN PRN Reason: NAUSEA AND/OR VOMITING Pantoprazole Sodium (Protonix -) 40 mg PO DAILY [facility] Last Admin: 05/10/17 09:14 Dose: 40 mg Quetiapine Fumarate (Seroquel -) 25 mg PO BID [facility] Last Admin: 05/10/17 22:14 Dose: 25 mg Rosuvastatin Calcium (Crestor -) 20 mg PO HS [facility] Last Admin: 05/10/17 22:13 Dose: 20 mg Sucralfate (Carafate Oral Suspension -) 0.5 gm PO BID [facility] Last Admin: 05/10/17 22:11 Dose: 0.5 gm Warfarin Sodium (Coumadin -) 1 mg PO DAILY@1800 [facility] Last Admin: 05/10/17 22:12 Dose: 1 mg Last Vital Signs Temp Pulse Resp BP Pulse Ox 98.9 F 84 20 130/62 97 05/10/17 21:49 05/10/17 21:49 05/10/17 21:49 05/10/17 21:49 05/10/17 21:00 lungs clear heart reg rate and rhythm abd soft nontender ext no edema CBC, BMP 05/10/17 07:00 05/10/17 07:00 esrd pvd s/p aka x 2 for hd tomorrow
[2017-05-11] MEDS: ACETAMINOPHEN 325 MG TABLET (FP) PO PRN (02:18)
[2017-05-11 08:07] LABS: INR 2.2 (0.82-1.09); PROTHROMBIN TIME (PATIENT) 24.9 SEC (9.98-11.88)
[2017-05-11] MEDS: AMINO ACIDS/PROTEIN HYDROLYS 30 ML LIQUID.PKT PO SCH (08:30)
[2017-05-11] MEDS: GABAPENTIN 100 MG CAPSULE (FP) PO SCH (09:00)
[2017-05-11] MEDS: BUDESONIDE/FORMETEROL FUMARATE 80/4.5 mcg INHALER IH SCH (09:00)
[2017-05-11] MEDS: PANTOPRAZOLE 40 MG TABLET (FP) PO SCH (09:00)
[2017-05-11] MEDS: SUCRALFATE 1 GM/10 ML UNIT DOSE CUPS PO SCH (09:00)
[2017-05-11] MEDS: QUEtiapine FUMARATE 25 MG TABLET (FP) PO SCH (09:00)
[2017-05-11] MEDS: FERROUS SO4 325 MG TABLET (FP) PO SCH (09:00)
[2017-05-11] MEDS: CARVEDILOL 3.125 MG TABLET (FP) PO SCH (09:00)
[2017-05-11] MEDS: MIDODRINE HCL 5 MG TABLET PO SCH ×2 (09:00→14:30)
[2017-05-11] MEDS ORDERED: DOXYCYCLINE HYCLATE 100 MG CAPSULE PO STA (11:21)
--- NOTE | 2017-05-11 11:55 | DS ---
Physical Exam: SUBJECTIVE: Patient seen and examined OBJECTIVE: Vital Signs Period Temp Pulse Resp BP Sys/Coleman Pulse Ox Last 24 Hr 97.3 F-98.9 F 77-84 20-20 88-130/50-68 97 PHYSICAL EXAM GENERAL: The patient is awake, alert, and fully oriented, in no acute distress. HEAD: Normal with no signs of trauma. EYES: PERRL, extraocular movements intact, sclera anicteric, conjunctiva clear. ENT: Ears normal, nares patent, oropharynx clear without exudates, moist mucous membranes. NECK: Trachea midline, full range of motion, supple. LUNGS: Breath sounds equal, clear to auscultation bilaterally, no wheezes, no crackles, no accessory muscle use. HEART: Regular rate and rhythm, S1, S2 without murmur, rub or gallop. ABDOMEN: Soft, nontender, nondistended, normoactive bowel sounds, no guarding, no rebound, no hepatosplenomegaly, no masses. EXTREMITIES: 2+ pulses, warm, well-perfused, no edema. NEUROLOGICAL: Cranial nerves II through XII grossly intact. Normal speech, gait not observed. PSYCH: Normal mood, normal affect. SKIN: Warm, dry, normal turgor, no rashes or lesions noted. LABS Laboratory Results - last 24 hr 05/11/17 06:00 PT with INR 24.90 H INR 2.20 H HOSPITAL COURSE: Date of Admission:04/21/17 Date of Discharge: 05/11/17 Minutes to complete discharge: 35 Discharge Summary Reason For Visit: FALL; END STAGE RENAL FAILURE Current Active Problems ESRD (end stage renal disease) (Acute) Fall (Acute) Heme positive stool (Acute) Condition: Improved - Instructions Diet, Activity, Other Instructions: Patient is being discharged with directions to receive doxycycline 100mg BID x 10 days for a mild cellulitis of the right AKA stump. Patient's INR has been therapeutic on warfarin 1mg daily. His INR should be checked in 2 days. Collagenase should be applied daily to the pressure wound on the right AKA stump. Referrals: Gary Gibbons MD [Primary Care Provider] - Disposition: LONG-TERM FACILITY - Home Medications Comprehensive Discharge Medication List: Ambulatory Orders Alprazolam [Xanax] 0.25 mg PO HS 03/14/17 Cilostazol [Pletal -] 100 mg PO BID 03/14/17 Esomeprazole Magnesium 40 mg PO DAILY 03/14/17 Fluticasone/Salmeterol [Advair 250-50 Diskus] 1 each IH BID 03/14/17 Glucosamine Sulfate Dipot Chlr [Glucosamine Sulfate] 1,000 mg PO DAILY 03/14/17 Meloxicam [Mobic] 15 mg PO DAILY 03/14/17 Rosuvastatin Calcium [Crestor] 20 mg PO DAILY 03/14/17 Sucralfate [Carafate] 5 ml PO BID 03/14/17 Tramadol HCl [Ultram -] 50 mg PO Q4H PRN 03/14/17 Acetaminophen [Tylenol .Regular Strength -] 650 mg PO Q6H PRN tablet 04/18/17 Amino Acids/Protein Hydrolys [Prosource No Carb Liquid Pkt] 30 ml PO BID@0800, 1730 packet 04/18/17 Carvedilol [Coreg -] 3.125 mg PO BID tablet 04/18/17 Diphenhydramine HCl [Benadryl Capsule -] 25 mg PO Q6H PRN capsule 04/18/17 Docusate Sodium [Colace -] 300 mg PO HS capsule 04/18/17 Gabapentin [Neurontin -] 100 mg PO BID capsule 04/18/17 Midodrine HCl [Proamatine -] 10 mg PO TID-MID tablet 04/18/17 Quetiapine Fumarate [Seroquel -] 25 mg PO BID tablet 04/18/17 Ranitidine Oral Solution [Zantac Oral Solution -] 150 mg PO DAILY cup 04/18/17 Collagenase Clostridium Hist. [Santyl -] 1 applic TP DAILY #1 tube 05/11/17 Doxycycline Hyclate [Vibramycin -] 100 mg PO BID@1000,1800 #20 capsule 05/11/17 Warfarin Na [Coumadin -] 1 mg PO DAILY@1800 #30 tablet 05/11/17 This patient is new to me today: No Emergency Visit: Yes ED Registration Date: 04/21/17 Care time: The patient presented to the Emergency Department on the above date and was hospitalized for further evaluation of their emergent condition. Critical Care patient: No - Discharge Referral Referred to [facility] Med P.C.: No
[2017-05-11 12:27] VITALS: TEMP 98.6
--- NOTE | 2017-05-11 12:52 | PN ---
Progress Note (short form) - Note Progress Note: Renal Follow up for ESRD on HD Pt seen and examined during dialysis BP stable, goal UF was 1.5L acces with poor flow, has spasm BFR is 220 pt without acute complaints Vital Signs Temperature 98.6 F 05/11/17 09:25 Pulse Rate 82 05/11/17 12:30 Respiratory Rate 18 05/11/17 12:30 Blood Pressure 127/72 05/11/17 12:30 O2 Sat by Pulse Oximetry (%) 97 05/10/17 21:00 Intake & Output 05/08/17 05/09/17 05/10/17 05/11/17 23:59 23:59 23:59 23:59 Intake Total 360 557 450 Balance 360 557 450 NAD soft NT/ND no sacral edema avf + thill CBC, BMP 05/10/17 07:00 05/10/17 07:00 Current Medications Acetaminophen (Tylenol -) 650 mg PO Q6H PRN PRN Reason: FEVER OR PAIN Last Admin: 05/11/17 02:18 Dose: 650 mg Amino Acids (Prosource No Carb Liquid Pkt) 30 ml PO BID@0800,1730 [facility] Last Admin: 05/11/17 08:30 Dose: Not Given Bacitracin (Bacitracin -) 1 applic TP BID [facility] Last Admin: 05/10/17 22:13 Dose: 1 applic Budesonide/Formoterol Fumarate (Symbicort 80/4.5mcg -) 2 puff IH BID [facility] Last Admin: 05/10/17 22:14 Dose: Not Given Carvedilol (Coreg -) 3.125 mg PO BID [facility] Last Admin: 05/10/17 22:13 Dose: 3.125 mg Docusate Sodium (Colace -) 300 mg PO HS [facility] Last Admin: 05/10/17 22:11 Dose: 300 mg Ferrous Sulfate (Feosol -) 325 mg PO DAILY [facility] Last Admin: 05/10/17 09:13 Dose: 325 mg Gabapentin (Neurontin -) 100 mg PO BID [facility] Last Admin: 05/10/17 22:12 Dose: 100 mg Midodrine (Proamatine -) 10 mg PO TID-MID [facility] Last Admin: 05/10/17 17:31 Dose: 10 mg Ondansetron HCl (Zofran Injection) 4 mg IVPUSH Q6H PRN PRN Reason: NAUSEA AND/OR VOMITING Pantoprazole Sodium (Protonix -) 40 mg PO DAILY [facility] Last Admin: 05/10/17 09:14 Dose: 40 mg Quetiapine Fumarate (Seroquel -) 25 mg PO BID [facility] Last Admin: 05/10/17 22:14 Dose: 25 mg Rosuvastatin Calcium (Crestor -) 20 mg PO HS [facility] Last Admin: 05/10/17 22:13 Dose: 20 mg Sucralfate (Carafate Oral Suspension -) 0.5 gm PO BID [facility] Last Admin: 05/10/17 22:11 Dose: 0.5 gm Warfarin Sodium (Coumadin -) 1 mg PO DAILY@1800 [facility] Last Admin: 05/10/17 22:12 Dose: 1 mg 77 year old gentleman with PMhx of ESRD on HD (started in [place]) Hypertension, DVT, PVD s/p right AKA s/p recent admission for Le wound that required amputation now presents from [facility] s/p fall. #ESRD on HD tolerating dialysis despite low BFR continue UF as tolerated will continue 3x weekly dialysis #PVD s/p BKA s/p AKA wound care pain control vascular follow up #Anemia in CKD Hgb at goal IVANIA as needed if Hgb drops below 10 Raghu Boogie DO
[2017-05-11 14:20] VITALS: BP 112/56
[2017-05-11 14:21] VITALS: PULSE 80
[2017-05-11] MEDS: BACITRACIN 15 GM TUBE TOPICAL OINTMENT TP SCH (15:19)
--- NOTE | 2017-05-11 16:04 | PN ---
Progress Note, Physician History of Present Illness: stable no issues - Objective Vital Signs: Vital Signs Temperature 98.6 F 05/11/17 09:25 Pulse Rate 80 05/11/17 13:15 Respiratory Rate 18 05/11/17 13:15 Blood Pressure 112/56 05/11/17 13:15 O2 Sat by Pulse Oximetry (%) 97 05/10/17 21:00 Constitutional: Yes: No Distress, Calm Cardiovascular: Yes: S1, S2 Respiratory: Yes: Regular, CTA Bilaterally Gastrointestinal: Yes: Normal Bowel Sounds, Soft Musculoskeletal: Yes: Other Extremities: Yes: Other Neurological: Yes: Alert, Other Labs: CBC, BMP 05/10/17 07:00 05/10/17 07:00 INR, PTT INR 2.20 (0.82-1.09) H 05/11/17 06:00 Assessment/Plan Problem List - Problems (1) ESRD (end stage renal disease) Code(s): N18.6 - END STAGE RENAL DISEASE (2) Atrial fibrillation Code(s): I48.91 - UNSPECIFIED ATRIAL FIBRILLATION Qualifiers: Atrial fibrillation type: persistent Qualified Code(s): I48.1 - Persistent atrial fibrillation (3) Critical lower limb ischemia Code(s): I99.8 - OTHER DISORDER OF CIRCULATORY SYSTEM (4) HLD (hyperlipidemia) Code(s): E78.5 - HYPERLIPIDEMIA, UNSPECIFIED Qualifiers: Hyperlipidemia type: pure hypercholesterolemia Qualified Code(s): E78.00 - Pure hypercholesterolemia, unspecified (5) HTN (hypertension) Code(s): I10 - ESSENTIAL (PRIMARY) HYPERTENSION Qualifiers: Hypertension type: essential hypertension Qualified Code(s): I10 - Essential (primary) hypertension (6) Open wnd foot-complicated Code(s): S91.309A - UNSPECIFIED OPEN WOUND, UNSPECIFIED FOOT, INITIAL ENCOUNTER (7) Peripheral arterial disease Code(s): I73.9 - PERIPHERAL VASCULAR DISEASE, UNSPECIFIED patient with aka plan continue current mgmt rest as per primary continue to monitor off of abx rest as per primary team
== END 2017-05-11 15:44 | DRG 474 ==
LOC: JER 13:20 → JERBED 18:24 → INTOOBSV 18:24 → J7W 21:20 → OBSVTOIN 04-21 12:04 → J7W 04-22 19:45
PROVIDERS: ADMIT Internal Medicine; ATTEND Nurse Practitioner Acute Care
PROC: 30233N1 Transfusion of Nonautologous Red Blood Cells into Peripheral Vein, Percutaneous Approach (ICD-10-PCS; 2017-04-27)
PROC: 0Y6D0Z3 Detachment at Left Upper Leg, Low, Open Approach (ICD-10-PCS; principal; 2017-04-27 16:30)
PROC: 5A1D70Z Performance of Urinary Filtration, Intermittent, Less than 6 Hours Per Day (ICD-10-PCS; 2017-05-06)
DX: T87.81 Dehiscence of amputation stump (principal); N18.6 End stage renal disease; B19.10 Unspecified viral hepatitis B without hepatic coma; I12.0 Hypertensive chronic kidney disease with stage 5 chronic kidney disease or end stage renal disease; I96 Gangrene, not elsewhere classified; R64 Cachexia; Z68.1 Body mass index [BMI] 19.9 or less, adult; I25.10 Atherosclerotic heart disease of native coronary artery without angina pectoris; I48.91 Unspecified atrial fibrillation; I99.8 Other disorder of circulatory system; K21.9 Gastro-esophageal reflux disease without esophagitis; F41.8 Other specified anxiety disorders; I73.89 Other specified peripheral vascular diseases; D69.6 Thrombocytopenia, unspecified; E87.5 Hyperkalemia; R19.5 Other fecal abnormalities; D63.8 Anemia in other chronic diseases classified elsewhere; J44.9 Chronic obstructive pulmonary disease, unspecified; Z86.718 Personal history of other venous thrombosis and embolism; Z89.512 Acquired absence of left leg below knee; Z89.611 Acquired absence of right leg above knee; Z79.01 Long term (current) use of anticoagulants; Z99.2 Dependence on renal dialysis; Y83.8 Other surgical procedures as the cause of abnormal reaction of the patient, or of later complication, without mention of misadventure at the time of the procedure; Y92.89 Other specified places as the place of occurrence of the external cause
CPT/HCPCS: 36415; 36430; 36511; 70450-TC; 71010-TC; 72125-TC; 80048; 80053; 82272; 82728; 83540; 83550; 83735; 84100; 85025; 85027; 85610; 85730; 86850; 86900; 86901; 86922; 87040; 88307-TC; 88311-TC; 93005; 93010; 94760; 99282-25; G0378; J0885; J1644; P9038; P9058

== ENCOUNTER → 2017-05-20 | Day surgery (SDC) | payer OTHER | END | disposition home or self-care (01) | LOC: JRADIR 11:30 | PROVIDERS: ATTEND Internal Medicine | PROC: 02HV33Z Insertion of Infusion Device into Superior Vena Cava, Percutaneous Approach (ICD-10-PCS; principal; 2017-05-20) | PROC: B548ZZA Ultrasonography of Superior Vena Cava, Guidance (ICD-10-PCS; 2017-05-20) | DX: Z79.2 Long term (current) use of antibiotics (principal) | CPT/HCPCS: 36569; 77001-TC; C1751 ==